=== PATIENT | female | born 1995 | race Caucasian/White ===

== ENCOUNTER 2017-08-17 07:00 | Inpatient (IN) | payer MEDICAID, SELFPAY ==
[2017-08-17] MEDS: Lactated Ringers 1,000 ML 50 ML IV ×2 (07:30→11:30)
[2017-08-17 07:36] VITALS: BMI 29.9
[2017-08-17 07:53] LABS: Hematocrit 37.9 % (37-47); Mean Corp Hgb Conc 34.3 g/gl (32-36); Mean Corpuscular Hgb 31.9 pg (27.0-32.0); Mean Corpuscular Volume 92.9 fL (81-99); Mean Platelet Vol. 12.1 fl (6.2-12.0); Platelet Count 131 K/mm3 (150-450); RBC Distribution Width CV 12.4 % (11.6-14.6); Red Blood Count 4.08 M/mm3 (4.2-5.4); White Blood Count 9.1 K/mm3 (4.4-11.0)
[2017-08-17 08:02] LABS: Scan Indicated on CBC? Y/N NO
[2017-08-17] MEDS: Ondansetron 4 MG/2 ML Vial IV (10:17)
[2017-08-17] MEDS: fentaNYL-bupivacaine (epidural) 100 ML BAG EPIDURAL (11:28)
[2017-08-17] MEDS: Oxytocin 30 units/NS 500 ml 30 UNITS/500 ML IV.SOLN 334 UNITS IV (12:51)
--- NOTE | 2017-08-17 13:06 | PCM.OB.VAG ---
Vaginal Delivery Maternal Presentation: Elective Induction Method of Induction: Amniotomy Amniotic Membrane Rupture Type: Artificial Amniotic Fluid Description: Clear Final MISSY: 08/13/17 Final MISSY Source: US <20 weeks Gestational age: 40 Weeks and 4 Days Pre-Operative Diagnosis: 40 week , labor Post-Operative Diagnosis: same Surgery/ Procedure Performed: Spontaneous Vaginal Delivery Type of Anesthesia: Epidural Description of Procedure: A vigorous male infant was delivered FALLON over a second-degree perineal laceration. A loose nuchal cord ?1 was easily reduced. The remainder the was delivered with maternal pushing and gentle traction only in less than 15 seconds. The Pitocin infusion was initiated for active management of the third stage. The cord was clamped and cut after 1 minute. The was attended to by the waiting nursing staff. The placenta was delivered spontaneously and intact. The cervix and vagina were intact. The second-degree perineal laceration was repaired with 3-0 Vicryl suture in a running standard fashion. Sponge and needle counts were correct. A vaginal sweep was completed by me. Presentation: FALLON Placental Delivery Description: Spontaneous Placenta Disposition: [facility] Cord Vessel Description: 3 Vessels Nuchal Cord Compression: Without compression Cord Entanglement: Around neck x 1, loose Drain: - - none Estimated Blood Loss: 300 A gender: Male (1 minute): 8 (5 minute): 9 Episiotomy Description: None Laceration: 2nd degree Medications given after delivery: IV Pitocin Complications: None
--- NOTE | 2017-08-17 13:09 | OP.PCM_ITS ---
Vaginal Delivery Maternal Presentation: Elective Induction Method of Induction: Amniotomy Amniotic Membrane Rupture Type: Artificial Amniotic Fluid Description: Clear Final MISSY: 08/13/17 Final MISSY Source: US <20 weeks Gestational age: 40 Weeks and 4 Days Pre-Operative Diagnosis: 40 week , labor Post-Operative Diagnosis: same Surgery/ Procedure Performed: Spontaneous Vaginal Delivery Type of Anesthesia: Epidural Description of Procedure: A vigorous male infant was delivered FALLON over a second-degree perineal laceration. A loose nuchal cord ?1 was easily reduced. The remainder the was delivered with maternal pushing and gentle traction only in less than 15 seconds. The Pitocin infusion was initiated for active management of the third stage. The cord was clamped and cut after 1 minute. The was attended to by the waiting nursing staff. The placenta was delivered spontaneously and intact. The cervix and vagina were intact. The second- degree perineal laceration was repaired with 3-0 Vicryl suture in a running standard fashion. Sponge and needle counts were correct. A vaginal sweep was completed by me. Presentation: FALLON Placental Delivery Description: Spontaneous Placenta Disposition: [facility] Cord Vessel Description: 3 Vessels Nuchal Cord Compression: Without compression Cord Entanglement: Around neck x 1, loose Drain: - - none Estimated Blood Loss: 300 Infant A gender: Male (1 minute): 8 (5 minute): 9 Episiotomy Description: None Laceration: 2nd degree Medications given after delivery: IV Pitocin Complications: None
[2017-08-17] MEDS: Oxytocin 30 units/NS 500 ml 30 UNITS/500 ML IV.SOLN 167 UNITS IV (13:20)
--- NOTE | 2017-08-17 14:10 | PCM.HP.OB ---
History Date of Admission: 02/04/14 Final MISSY: 08/13/17 Final MISSY Source: US <20 weeks Gestational age: 40 Weeks and 4 Days History of this : 21 YOF @ 40 4/7 weeks for induction. uncomplicated to date Allergies bee venom protein (honey bee) Allergy (Verified 08/17/17 07:30) Anaphylaxis prochlorperazine edisylate [From Compazine] Allergy (Verified 12/19/16 15:53) Swelling states throat swells prochlorperazine maleate [From Compazine] Allergy (Verified 12/19/16 15:53) Swelling states throat swells Current Medications Acetaminophen (Tylenol) 1,000 mg PO Q8H PRN PRN PRN Reason: MILD PAIN (1-3/10)/Temp>99.6F Bisacodyl (Dulcolax) 10 mg RECTAL UD PRN PRN Reason: If no BM Dibucaine (Dibucaine) 1 applic TOPICAL TID PRN PRN; Protocol PRN Reason: Discomfort Hydrocortisone (Hytone) 1 applic TOPICAL TID PRN PRN; Protocol PRN Reason: Discomfort Lactated Ringer's () 1,000 mls @ 0 mls/hr IV .Q0M FELIPE PRN Reason: KVO Oxytocin/Sodium Chloride () 30 units in 500 mls @ 167 mls/hr IV .Q3H [facility] Stop: 08/17/17 14:24 Methylergonovine Maleate (Methergine) 0.2 mg IM X1 PRN PRN Reason: Excess bleeding/uterine atony Naproxen (Naprosyn) 250 - 500 mg PO Q8H PRN PRN PRN Reason: MILD PAIN (1-3/10) Ondansetron HCl (Zofran) 4 mg IV Q4H PRN PRN PRN Reason: Nausea Promethazine HCl (Phenergan) 12.5 mg IV Q4H PRN PRN PRN Reason: NAUSEA/VOMITING Senna/Docusate Sodium (Senokot-S, Luanne-Colace) 1 - 2 tablet PO DAILY PRN PRN PRN Reason: Constipation Simethicone (Mylicon) 80 mg PO PCHS PRN PRN Reason: Indigestion/Stomach pain Sodium Chloride () 5 - 15 ml IV UD PRN PRN Reason: SALINE FLUSH Smoking Status: Never smoker Alcohol: None Number of Fetus(es): 1 Review of Systems Constitutional: Denies: Anorexia, Chills Eyes: Denies: Blurred vision Cardiovascular: Denies: Chest Pain Respiratory: Denies: Cough, Shortness of Breath Physical Exam General: Alert, Cooperative, No apparent distress Cardiovascular: Regular rate Lungs: Normal air movement Abdomen: Soft, Non Tender, Non-Distended, Gravid, Appropriate for Gestational Age Extremities:: No edema Estimated gestational size: Appropriate for gestational size Presentation: Cephalic Assessment/Plan 21-year-old 3 para 1011 at 40-4/7 weeks gestation with EDC of 08/13/2017 by last menstrual period confirmed by first trimester ultrasound presents for induction of labor. Estimated weight is less than 4500 g clinically and pelvis is clinically adequate to expect vaginal delivery. Artificial rupture membranes and Pitocin as needed for induction. Patient may have nitrous oxide, nubain or epidural as needed for pain relief.
[2017-08-17] MEDS: Lactated Ringers 1,000 ML 15 ML IV (14:24)
--- NOTE | 2017-08-17 17:18 | NURSING ---
Pt up to void with assistance of her mother, a nurse. Pt previously informed to call this RN when ready to void. Pt tolerated walking to the bathroom well per pt/mother.
[2017-08-17] MEDS: Naproxen 250 MG Tablet PO (17:19)
[2017-08-17 20:05] VITALS: BP 124/65; PULSE 91; RESP 18; TEMP 36.7; O2SAT 97
[2017-08-17] MEDS: Acetaminophen 500 MG Tablet 1000 MG PO (22:30)
[2017-08-18 00:15] VITALS: BP 128/56; PULSE 101; RESP 16; TEMP 36.6; O2SAT 97
--- NOTE | 2017-08-18 01:00 | NURSING ---
Talked with patient about history of depression. Asked patient if she would like to talk with pillowcase turner for resources and she stated she did not need to at this time. Patient bonding appropriately with infant and has good support system. Educated about signs and symptoms of depression.
[2017-08-18 03:25] VITALS: BP 118/61; PULSE 86; RESP 18; TEMP 36.7; O2SAT 97
[2017-08-18 07:29] VITALS: BP 113/72; PULSE 79; RESP 16; TEMP 36.4; O2SAT 97
[2017-08-18 11:53] VITALS: BP 120/76; PULSE 86; TEMP 36.8; O2SAT 97
--- NOTE | 2017-08-18 13:27 | PCM.PN.OB ---
Subjective: pain well controlled, average lochia - Physical Exam General: Alert, Cooperative, No apparent distress Vital Signs Temp Pulse Resp BP Pulse Ox 98.2 F 86 16 120/76 97 08/18/17 11:53 08/18/17 11:53 08/18/17 07:29 08/18/17 11:53 08/18/17 11:53 Oxygen Delivery Method Room Air Weight: 79.3 kg Body Mass Index (BMI) 29.9 Intake and Output for Last 24 Hours 08/16/17 08/17/17 08/18/17 23:59 23:59 23:59 Intake Total 1800 / 1800 Output Total 2400 / 2400 Balance -600 / -600 Medical Necessity - Tobacco Use Smoking Status: Never smoker Assessment/Plan PPD#1 doing well ready for d/c
--- NOTE | 2017-08-18 13:29 | DCINST_ITS ---
Discharge Diet: No Restrictions Discharge Activity: Return to Normal Activity, May not drive while taking narcotic pain medications., May Shower May resume sexual activity in: 4-6 weeks Additional Activity Instructions:: Nothing in the vagina for 4-6 weeks. You may return to work/school in 6 weeks. Call your doctor if your incision/area has: Continuous Slow Oozing, Sudden Increased Bleeding, Increased Pain/ Swelling, Increased Redness, Foul Smelling Discharge Additional Instructions: If you experience any of the following, contact your healthcare provider. * Bleeding that soaks a pad every hour for 2 hours * Fever 100.4 or higher * Unrelieved incision or abdominal pain * Swelling, redness, discharge or bleeding from your incision or episiotomy site * Your incision begins to separate * Problems urinating (including inability to urinate or burning while urinating) . * Visual changes * Severe headache * Flu-like symptoms * Pain or redness in one of both of your breasts * Pain, warmth, tenderness or swelling in your legs, especially the calf area * Frequent nausea and vomiting * Symptoms of depression or anxiety If you experience any of the following, call 911 or go to the nearest Emergency Room. * Chest pain * Problems breathing * Seizure activity * Partial or complete paralysis of a body part, slurred speech, weakness or drooping of the face, or a sudden inability to walk or hold your balance Allergies/Adverse Reactions: Allergies bee venom protein (honey bee) Allergy (Verified 08/17/17 07:30) Anaphylaxis prochlorperazine edisylate [From Compazine] Allergy (Verified 12/19/16 15:53) Swelling states throat swells prochlorperazine maleate [From Compazine] Allergy (Verified 12/19/16 15:53) Swelling states throat swells Medications to take at Discharge Vits [Prenatabs FA ] 1 tablet PO DAILY 02/06/14 Albuterol Inhaler [Ventolin Hfa] 1 puff INHALATION Q4H PRN PRN 08/17/17 Epinephrine [Epi Pen] 0.3 mg 08/17/17 Ibuprofen [Motrin] 600 mg PO Q6H PRN #60 tab 08/18/17 The following prescriptions were given: Ibuprofen [Motrin] 600 mg PO Q6H PRN #60 tab PRN Reason: Pain Please Follow Up With: Luann Sanderson MD - [phone] When: Call to make an appointment with your doctor in 6 weeks. If you had elevated Blood Pressure or 4th degree laceration you will need to be seen in 2 weeks. Primary Care Physician: Huber Lara DO [Primary Care Provider] -
--- NOTE | 2017-08-18 14:10 | NURSING ---
Reviewed vital signs, patient rounds and assessment done by SN Cherelle.
== END 2017-08-18 17:00 | disposition home or self-care (01) | DRG 373 ==
PROVIDERS: Admitting Provider Obstetrics & Gynecology; Family Provider Student in an Organized Health Care Education/Training Program; PCP Student in an Organized Health Care Education/Training Program; Visit Provider Obstetrics & Gynecology
DX: O48.0 Post-term pregnancy (principal); O70.1 Second degree perineal laceration during delivery; O69.1XX0 Labor and delivery complicated by cord around neck, with compression, not applicable or unspecified; Z3A.40 40 weeks gestation of pregnancy; Z37.0 Single live birth
CPT/HCPCS: 59025; 59050; 85027; 86850; 86900; 99218; J7120; G0378; J2405

== ENCOUNTER 2019-06-03 18:10 | Emergency (ER) | payer OTHER, MEDICAID, SELFPAY ==
[2019-06-03 18:11] VITALS: BP 139/89; PULSE 118; RESP 25; TEMP 36.9; O2SAT 100; BMI 25.7
--- NOTE | 2019-06-03 18:28 | RAD_ITS ---
STUDY: X-RAY CHEST REASON FOR EXAM: Female, 23 years old. Cough and shortness of breath TECHNIQUE: PA and lateral views of the chest. COMPARISON: 11/28/2013 FINDINGS: EKG leads overlie the chest The lungs are clear and expanded. There is no demonstrated pleural abnormality. Normal size heart. Normal mediastinum and osvaldo. Normal visualized pulmonary arteries. Normal visualized aortic arch and descending thoracic aorta. Normal visualized thoracic spine. Normal visualized ribs, clavicles, and shoulders. There is no demonstrated abnormality of the visualized soft tissue structures of the upper abdomen. RAD/Chest PA and Lateral IMPRESSION: Normal x-ray examination of the chest. Electronically Signed: Greg Madrid MD at 19:19 EST , Service support ,
--- NOTE | 2019-06-03 18:28 | EKG12_ITS ---
Test Reason : DYSRHYTHMIA Blood Pressure : / mmHG Vent. Rate : 104 BPM Atrial Rate : 104 BPM P-R Int : 134 ms QRS Dur : 082 ms QT Int : 344 ms P-R-T Axes : 079 060 068 degrees QTc Int : 452 ms Sinus tachycardia Otherwise normal ECG Confirmed by DEL FREEMAN, ROLANDO ([id number]), editor at large AMTT QUINTERO ([id number]) on 06/05/2019 1:34:45 PM Referred By: ALEXIS Confirmed By:ROLANDO MATHIS MD
--- NOTE | 2019-06-03 18:37 | ED.DCSUM_ITS ---
History of Present Illness Chief Complaint: Asthma Informant: Patient Onset: Days Context: Gradual Onset Timing: Continuous Current Severity: Moderate Maximum Severity: Severe Narrative: The patient is a 23-year-old female with medical history significant for asthma the presents to the emergency department with increasing shortness of breath. Patient states her symptoms began on Monday. She states she felt like she had an upper respiratory illness. She had a scant cough and chest tightness. She started prednisone and this will be her fourth day. She feels like is not helping. She feels like she cannot take a deep breath or catch her breath. She states at times, she will feel lightheaded and mildly nauseated. She denies any fevers or chills. She has had some left-sided chest pain especially with coughing. Prior similar symptoms: Yes Recent Illness/Hospitalization: No Past Medical History - Allergies and Home Meds Allergies/Adverse Reactions: Allergies bee venom protein (honey bee) Allergy (Verified 06/03/19 18:13) Anaphylaxis prochlorperazine edisylate [From Compazine] Allergy (Verified 06/03/19 18:13) Swelling states throat swells prochlorperazine maleate [From Compazine] Allergy (Verified 06/03/19 18:13) Swelling states throat swells Primary Care Physician: Evelio Hernandez DO [Primary Care Provider] - Prior records reviewed: Yes Past Medical History: - - Asthma Surgical History: noncontributory Smoking Status: Never smoker Review of Systems General: Denies: Chills, Fever, Sweats Eyes: Denies: Visual changes - bilaterally, Diplopia ENT: Denies: Rhinorrhea, Sore throat Cardiovascular: Denies: Chest pain, Palpitations Respiratory: Reports: Dyspnea, Cough. Denies: Dyspnea on exertion Gastrointestinal: Denies: Abdominal pain, Nausea, Vomiting, Diarrhea, Melena, Hematochezia Genitourinary: Denies: Dysuria, Hematuria, Frequency Musculoskeletal: Denies: Back pain, Extremity Pain Skin: Denies: Rash, Wounds Neurological: Denies: Headache, Weakness, Numbness Physical Exam Vital Signs/Narrative: Vital Signs Temp Pulse Resp BP Pulse Ox 06/03/19 18:11 98.5 F 118 H 25 H 139/89 H 100 Inital Vital Signs reviewed: Yes General: Well nourished, Well developed, No Acute Distress Head: Normocephalic, Atraumatic Eyes: Perrl, EOMI ENT: Moist mucous membranes, No rhinorrhea Neck: Supple, Nontender Cardiovascular: Regular rate, Regular rhythm, No murmurs Respiratory: No distress, Chest nontender, Wheezing Abdomen: Soft, Nontender, Nondistended, Normal bowel sounds Back: Nontender, Normal Inspection Extremities: Nontender, No edema Skin: Normal color, No rash Neurological: Alert, Oriented x3, Cranial nerves II-XII grossly intact, Normal Strength, Normal Sensation Psychological: Normal affect, Normal Mood Diagnostic/Tx/Re-eval Clinical Impression(s) from Imaging Studies Chest X-Ray 06/03/19 18:28 IMPRESSION: Normal x-ray examination of the chest. Electronically Signed: Greg Madrid MD at 19:19 EST , Service support , Abnormal Lab Results 06/03/19 06/03/19 06/03/19 19:15 19:15 19:15 WBC 16.5 H RBC 4.67 Hgb 14.4 Hct 42.9 MCV 91.9 MCH 30.8 MCHC 33.6 RDW Std Deviation 41.1 RDW Coeff of Win 12.2 Plt Count 329 MPV 10.7 Immature Gran % (Auto) 0.200 Neut % (Auto) 48.1 Lymph % (Auto) 41.3 H [place] % (Auto) 10.0 Eos % (Auto) 0.1 Baso % (Auto) 0.3 Absolute Neuts (auto) 7.9 H Absolute Lymphs (auto) 6.80 H Nucleated RBC % 0 Differential Comment SCANNED D-Dimer Quant (PE/DVT) <= 0.27 Sodium 142 Potassium 3.1 L Chloride 111 H Carbon Dioxide 20.0 L Anion Gap 11 BUN 13 Creatinine 0.98 Estim Creat Clear Calc 76.44 Est GFR (MDRD) Af Amer 90 Est GFR (MDRD) Non-Af 74 BUN/Creatinine Ratio 13.3 Glucose 108 H Calcium 10.0 - Medical Decision Making The patient presents to the emergency department with asthma exacerbation. She does have diminished lung sounds bilaterally with prolonged expiration. She was started immediately on nebulized breathing treatments. Chest x-ray was obtained which was unremarkable for acute process. EKG shows sinus tachycardia without acute ischemic change. I did obtain a d-dimer which was negative. Otherwise labs are unremarkable. With treatments, the patient was feeling improved. She was given IV magnesium. She is resting comfortably with resolution of her tachypnea and tachycardia. At this point, I do think she is safe to continue her outpatient therapy. She has no hypoxia and otherwise unremarkable work-up. She is comfortable with this plan of care. Impression 1. Acute asthma exacerbation ED Disposition - Plan for ED Patient: Instructions: ASTHMA, Acute (Adult) Referrals: Evelio Hernandez DO [Primary Care Provider] -
[2019-06-03 18:47] VITALS: RESP 25
[2019-06-03 19:00] VITALS: PULSE 105; RESP 20; O2SAT 99
[2019-06-03] MEDS: 0.9% Normal Saline 1,000 ML 999 ML IV (19:00)
[2019-06-03] MEDS: Ipratropium/Albuterol Sulfate 3 ML AMPUL.NEB INHALATION (19:00)
[2019-06-03] MEDS: MethylPREDNISolone 125 MG/2 ML Vial IV (19:01)
[2019-06-03 19:03] VITALS: PULSE 115; RESP 20; O2SAT 99
[2019-06-03 19:24] LABS: Absolute Neutrophil Count 7.9 X10^3/uL (2.0-7.7); Basophil# 0.05 X10^3/uL; Basophil% 0.3 % (0-1); Eosinophil# 0.02 X10^3/uL; Eosinophils% 0.1 % (0-5); Hematocrit 42.9 % (37-47); Hemoglobin 14.4 g/dL (12.0-15.0); Lymphocyte % 41.3 % (19-41); Mean Corp Hgb Conc 33.6 g/dL (32-36); Mean Corpuscular Hgb 30.8 pg (27.0-32.0); Mean Corpuscular Volume 91.9 fL (81-99); Mean Platelet Vol. 10.7 fl (6.2-12.0); Monocyte# 1.65 X10^3/uL; NRBC Flagged by Analyzer 0 % (0-5); Neutrophil # 7.89 X10^3/uL (2.7-7.7); Neutrophil % 48.1 % (47-70); POSITIVE DIFFERENTIAL YES; POSITIVE MORPHOLOGY YES; Platelet Count 329 K/mm3 (150-450); RBC Distribution Width CV 12.2 % (11.6-14.6); RBC Distribution Width SD 41.1 fl (35.1-43.9); Red Blood Count 4.67 M/mm3 (4.2-5.4); White Blood Count 16.5 K/mm3 (4.4-11.0)
[2019-06-03 19:35] LABS: Differential Indicated SCAN CRITERIA MET
[2019-06-03 19:43] LABS: D-Dimer Quantitative (DVT/PE) <= 0.27 FEU/ug/m (0.27-0.49)
[2019-06-03 19:47] LABS: Anion Gap 11 (5-15); BUN 13 mg/dL (7-18); BUN/Creat Ratio 13.3 RATIO (10-20); Chloride 111 mmol/L (98-107); Creatinine, Serum 0.98 mg/dL (0.55-1.02); EST Glomerular Filtration Rate 74 mL/min (>60); Est Glom Filt Rate - Afr Amer 90 mL/min (>60); Estimated Creatinine Clearance 76.44 ml/min; Glucose 108 mg/dL (74-106); Potassium 3.1 mmol/L (3.5-5.1); Sodium Level 142 mmol/L (136-145)
[2019-06-03 19:49] LABS: Differential Comment SCANNED
[2019-06-03] MEDS: Albuterol 2.5 MG/3 ML VIAL.NEB. INHALATION ×3 (20:08)
[2019-06-03] MEDS: Magnesium Sulfate 2 GM IV IV (20:16)
--- NOTE | 2019-06-03 20:25 | CPS ---
x3 Albuterol given to pt. in ER as well
[2019-06-03 21:06] VITALS: BP 116/68; PULSE 115; RESP 21; O2SAT 98
[2019-06-03 22:36] VITALS: BP 118/98; PULSE 112; RESP 16; O2SAT 96
== END 2019-06-03 22:38 | disposition home or self-care (01) ==
PROVIDERS: Emergency Provider Emergency Medicine; PCP Student in an Organized Health Care Education/Training Program
DX: J45.901 Unspecified asthma with (acute) exacerbation (principal)
CPT/HCPCS: 36415; 71046; 80048; 85025; 85379; 93005; 94640; 96361; 96365; 96366; 96374; 99251; 99285; J7030; A4216; G0463; J3475

== ENCOUNTER → 2019-07-09 08:56 | Outpatient (CLI) | payer OTHER, MEDICAID, SELFPAY ==
[2019-06-26 06:01] VITALS: BMI 26.6
[2019-07-09 10:14] LABS: Absolute Lymphocyte Count 3.09 X10^3/uL (0.83-4.51); Absolute Neutrophil Count 4.1 X10^3/uL (2.0-7.7); Basophil# 0.04 X10^3/uL; Basophil% 0.5 % (0-1); Eosinophil# 0.12 X10^3/uL; Eosinophils% 1.5 % (0-5); Hematocrit 43.3 % (37-47); Hemoglobin 14.7 g/dL (12.0-15.0); Lymphocyte # 3.09 X10^3/ul (4.0); Lymphocyte % 37.7 % (19-41); Mean Corp Hgb Conc 33.9 g/dL (32-36); Mean Corpuscular Volume 94.1 fL (81-99); Mean Platelet Vol. 10.4 fl (6.2-12.0); Monocyte# 0.82 X10^3/uL; NRBC Flagged by Analyzer 0 % (0-5); Neutrophil % 50.1 % (47-70); Platelet Count 321 K/mm3 (150-450); RBC Distribution Width CV 11.8 % (11.6-14.6); RBC Distribution Width SD 40.2 fl (35.1-43.9); White Blood Count 8.2 K/mm3 (4.4-11.0)
--- NOTE | 2019-07-09 13:48 | PFT ---
INTRODUCTION: The patient is a 23-year-old female that presents for pulmonary function studies secondary to a diagnosis of asthma. Respiratory therapy reports good patient effort. Bronchodilators were used during testing. INTERPRETATION: Forced expiration spirometry demonstrates no evidence of a large airways obstructive ventilatory defect. There was no significant response to aerosolized bronchodilators. Spirograms are of good quality and plateau normally. The respiratory flow volume loop is normal. Body plethysmography was performed and reveals lung volumes to be within normal limits. Diffusing capacity by single breath CO is also within normal limits. IMPRESSION: Grossly normal pulmonary function studies.
[2019-07-11 03:06] LABS: Alternaria alternata 1.63 kU/L (Class III); Bermuda Grass <0.10 kU/L (Class 0); Bluegrass, Kentucky <0.10 kU/L (Class 0); Cat Hair/Dander, Standard <0.10 kU/L (Class 0); D farinae Mite <0.10 kU/L (Class 0); D pteronyssinus <0.10 kU/L (Class 0); Dog Epithelia <0.10 kU/L (Class 0); Elm, American White <0.10 kU/L (Class 0); Oak, White <0.10 kU/L (Class 0); Plantain, English <0.10 kU/L (Class 0); Ragweed, Short/Common 0.15 kU/L (Class 0/I)
[2019-07-11 08:04] LABS: Mouse Urine <0.10 kU/L (Class 0)
[2019-07-13 14:50] LABS: Immunoglobulin E 80 IU/mL (6-495)
== END ==
PROVIDERS: PCP Student in an Organized Health Care Education/Training Program; Referring Provider Internal Medicine Critical Care Medicine; Visit Provider Internal Medicine Critical Care Medicine
DX: J45.40 Moderate persistent asthma, uncomplicated (principal)
CPT/HCPCS: 36415; 82785; 85025; 86003; 94060; 94726; 94729

== ENCOUNTER 2019-09-20 16:30 | Outpatient (RCR) | payer OTHER, MEDICAID, SELFPAY ==
--- NOTE | 2019-05-06 08:30 | HP.PTEVAL_ITS ---
Patient's Visit Information LEIDY WILCOX is a 23 year old F referred to Physical Therapy by Layton Nava MD with a diagnosis of bilateral temporomadibular joint arthrosis. Date of Evaluation: 04/25/19 Physical Therapist: Jamie Colunga DPT - Visit Plan Frequency: 2x /Week Duration: 4-6 Weeks Plan: Start with roccobodo exercises. Add in SCM stretching, postural education and exercises. May use DN and SCM to deep neck flexors, SCM and levator scapulea . - Subjective Findings: Pt. is here today for her initial evaluation with diagnosis of bilateral temporomadibular joint arthrosis. Pt. reports having increased pain for years, but has been getting worse. She originally through she had an ear infection which took her to the ENT. Pt. reports pain into her L mandable and auricular region. Pt. reprots increased pain with chewing, eating, opening her mouth and clenching her mouth. Pt. denies N/T. 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 Pt. works at [employer] and is going to school on line. Pt. is hopeful to reduce her symptoms in order to complete all her ADLs and have no pain with all recreational activities. - Pain B temporomandibular region Pain Intensity (Out of 10): 2 - Objective POSTURE: Pt. has FH posture with increased cervical flexion at lower cervical spine and extension and upper cervical spine. Pt. has roduned shoulders as well. Pt. is able to correct, but falls back into this posture without VC. PALPATION: Pt. has tenderness along L SCM and L UT. Tender at aurical region and at L mandable and TMJ. NEURO: normal throughout. ROM: Pt. has decreased mouth opening with reports of increased tenderness on L TMJ. Pt. has no lateral deviation. Pt. has no popping with opening and closing. MMT: Pt. has 5/5 strength throughout cervical spine. Weakness with deep neck flexor strength endurance, chin tuck with flexor testing 18sec. - Goals Goal 1:: LTG: Pt. to be I with HEP. Goal Time Frame: 4-6 Weeks Goal 2:: STG: Pt. to be able to eat without increase in soreness. Goal Time Frame: 2-4 Weeks Goal 3:: LTG: Pt. to demonstrate improved postural awareness, noted by mainting throughout PT session. Goal Time Frame: 4-6 Weeks Goal 4:: STG: pt. to complete all work and ADLs with out increase in symptoms. Goal Time Frame: 2-4 Weeks - Rehabilitation Potential Physical Therapy Diagnosis: bilateral temporomadibular joint arthrosis, with marked postural weakness and poor posture. Rehabilitation Potential: Excellent - Anticipated Interventions Patient/Client Instruction: Educate patient on: Condition, Plan of Care, Risk Factors, Benefits of Fitness Program For the Purpose of:: To foster healthy habits, To improve decision making, To facilitate caregiver knowledge, To improve self management, To prevent re- injury, To improve ability to perform tasks related to life management, To improve tolerance to ADL's Therapeutic Exercise to Include: Strength training, Body mechanics, Postural training, Flexibilty training, Passive ROM, Active ROM, Dynamic Lumbar Stabilization, Venancio Exercises, Scapular Strength/Stabilization For the Purpose of:: To decrease pain, To decrease swelling/inflammation, To increase ROM, To improve nutrient delivery to tissue, To increase oxygenation perfusion, To improve muscle performance and motor function, To improve performance and independence with ADL's, To improve health of tissue, To decrease soft tissue restriction, To increase flexibility/ROM Manual Therapy Techniques to Include: Mobilization, Passive ROM, Functional dry needling, Soft tissue mobilization For the Purpose of:: To decrease pain, To decrease swelling/inflammation, To increase ROM, To improve nutrient delivery to tissue Thank you for the opportunity to evaluate your patient. For Medicare and Medicare HMO plans, please review the plan of care and approve it. It will need to be FAXED BACK to us at [phone] for Medicare purposes. For Medicare only, by signing this I certify the plan of care. Please let me know if there are questions or concerns regarding this plan of ca re. Physician Signature: Date:
--- NOTE | 2019-10-23 13:43 | HP.PTDCNRP_ITS ---
LEIDY WILCOX was seen in my office for initial evaluation on 04/25/19. The following Plan of Care was established for this patient: Initial Frequency: 2x /Week Initial Duration: 4-6 Weeks Patient/Client Instruction: Educate patient on: Condition, Plan of Care, Risk Factors, Benefits of Fitness Program For the Purpose of:: To foster healthy habits, To improve decision making, To facilitate caregiver knowledge, To improve self management, To prevent re- injury, To improve ability to perform tasks related to life management, To improve tolerance to ADL's Therapeutic Exercise to Include: Strength training, Body mechanics, Postural training, Flexibilty training, Passive ROM, Active ROM, Dynamic Lumbar Stabilization, Venancio Exercises, Scapular Strength/Stabilization For the Purpose of:: To decrease pain, To decrease swelling/inflammation, To increase ROM, To improve nutrient delivery to tissue, To increase oxygenation perfusion, To improve muscle performance and motor function, To improve performance and independence with ADL's, To improve health of tissue, To decrease soft tissue restriction, To increase flexibility/ROM Manual Therapy Techniques to Include: Mobilization, Passive ROM, Functional dry needling, Soft tissue mobilization For the Purpose of:: To decrease pain, To decrease swelling/inflammation, To increase ROM, To improve nutrient delivery to tissue This patient was last seen in our office 09/20/19. Pertinent comments regarding their Physical therapy will appear below: Pt. was seen for her TMD issues. Pt. was treated with ROM, stretching, postural education and relaxation technqiues. Pt. was doing well at her last visit and has not been seen in several weeks. Pt. will be DC from PT at this point in time. At this point I will be discontinuing this patient from physical therapy. I would be happy to see this patient again in the future if found appropriate by the physician. Thank you! Jamie Colunga, GHASSAN
== END 2019-09-20 19:00 | disposition home or self-care (01) ==
LOC: PT 16:30
PROVIDERS: PCP Student in an Organized Health Care Education/Training Program; Referring Provider Student in an Organized Health Care Education/Training Program; Visit Provider Otolaryngology
DX: M26.623 Arthralgia of bilateral temporomandibular joint (principal)
CPT/HCPCS: 97035; 97110; 97140; 97161

== ENCOUNTER → 2020-05-08 10:34 | Outpatient (CLI) | payer OTHER, MEDICAID, SELFPAY ==
[2020-04-16 08:04] VITALS: BMI 27.2
[2020-05-08 11:10] LABS: Absolute Lymphocyte Count 1.97 X10^3/uL (0.83-4.51); Absolute Neutrophil Count 3.9 X10^3/uL (2.0-7.7); Basophil# 0.03 X10^3/uL; Basophil% 0.5 % (0-1); Eosinophil# 0.05 X10^3/uL; Eosinophils% 0.8 % (0-5); Hemoglobin 14.1 g/dL (12.0-15.0); Lymphocyte # 1.97 X10^3/ul (4.0); Lymphocyte % 30.2 % (19-41); Mean Corp Hgb Conc 32.8 g/dL (32-36); Mean Corpuscular Hgb 31.1 pg (27.0-32.0); Mean Corpuscular Volume 94.7 fL (81-99); Mean Platelet Vol. 10.7 fl (6.2-12.0); Monocyte# 0.54 X10^3/uL; Monocyte% 8.3 % (0-10); NRBC Flagged by Analyzer 0 % (0-5); Neutrophil # 3.91 X10^3/uL (2.7-7.7); Neutrophil % 59.9 % (47-70); Platelet Count 291 K/mm3 (150-450); RBC Distribution Width CV 11.9 % (11.6-14.6); RBC Distribution Width SD 41.2 fl (35.1-43.9); Red Blood Count 4.54 M/mm3 (4.2-5.4); White Blood Count 6.5 K/mm3 (4.4-11.0)
== END ==
PROVIDERS: PCP Student in an Organized Health Care Education/Training Program; Visit Provider Specialist
DX: L50.1 Idiopathic urticaria (principal)
CPT/HCPCS: 36415; 83520; 85025

== ENCOUNTER 2020-05-12 15:13 | Emergency (ER) | payer OTHER, MEDICAID, SELFPAY ==
[2020-05-12 14:56] VITALS: BMI 27.4
[2020-05-12 15:14] VITALS: BP 119/96; PULSE 97; RESP 17; TEMP 36.9; O2SAT 97; BMI 29.8
--- NOTE | 2020-05-12 15:31 | ED.DCSUM_ITS ---
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 She states she received an injection. 20 minutes later she developed difficulty breathing, change in voice and abnormal breath sounds. She denies rash. She denies swelling of her tongue. She denies drooling. She denies cardiac symptoms. She denies nausea or vomiting. She denies abdominal discomfort. Denies orthostatic symptoms. Prior similar symptoms: Yes Recent Illness/Hospitalization: No - Past Medical History (1) Hives Status: Acute (2) IBS (irritable bowel syndrome) Status: Acute (3) Asthma Status: Chronic (4) Allergic rhinitis Status: Acute (5) Eustachian tube dysfunction Status: Acute Past Medical History - Allergies and Home Meds Allergies/Adverse Reactions: Allergies bee venom protein (honey bee) Allergy (Verified 05/12/20 15:18) Anaphylaxis prochlorperazine edisylate [From Compazine] Allergy (Verified 05/12/20 15:18) Swelling states throat swells prochlorperazine maleate [From Compazine] Allergy (Verified 05/12/20 15:18) Swelling states throat swells Primary Care Physician: Evelio Hernandez DO [Primary Care Provider] - Prior records reviewed: Yes Surgical History: noncontributory Lives: With Family Smoking Status: Never smoker Alcohol: None Drugs: None Review of Systems General: Denies: Chills, Fever, Sweats Eyes: Denies: Visual changes - bilaterally, Blurred Vision - bilaterally, Diplopia ENT: Denies: Bilateral ear pain, Rhinorrhea, Sore throat Cardiovascular: Denies: Chest pain, Palpitations, Heart racing Respiratory: Reports: Dyspnea, Cough, Dyspnea on exertion. Denies: Sputum, Orthopnea, Paroxysmal nocturnal dyspnea Gastrointestinal: Denies: Abdominal pain, Nausea, Vomiting, Diarrhea, Melena, Hematochezia Genitourinary: Denies: Dysuria, Hematuria, Frequency Musculoskeletal: Denies: Myalgias, Arthralgias, Neck pain, Back pain, Swelling, Extremity Pain Skin: Denies: Rash, Wounds Neurological: Denies: Headache, Weakness, Numbness Hematologic: Denies: Easy bruising, Easy bleeding Allergy: Reports: Swelling of the mouth. Denies: Uticaria, Swelling of the tongue Physical Exam Vital Signs/Narrative: Vital Signs Temp Pulse Resp BP Pulse Ox 05/12/20 15:14 98.5 F 97 17 119/96 H 97 Inital Vital Signs reviewed: Yes General: Well nourished, Well developed, No Acute Distress Head: Normocephalic, Atraumatic Eyes: Perrl, EOMI ENT: Moist mucous membranes, No rhinorrhea, - - Denies expiratory stridor. There is no swelling of the uvula, soft palate tongue or posterior pharynx. Trachea is midline. Neck: Supple, Nontender Cardiovascular: Regular rate, Regular rhythm, No murmurs, Normal S1, Normal S2 Respiratory: No distress, CTA bilaterally, Chest nontender, Diminished. Negative for: Rales, Rhonchi, Wheezing Abdomen: Soft, Nontender, Nondistended, Normal bowel sounds Back: Nontender, Normal Inspection Extremities: Nontender, No edema Skin: Normal color, No rash Neurological: Alert, Oriented x3, Cranial nerves II-XII grossly intact, Normal Strength, Normal Sensation Psychological: Normal affect, Normal Mood Diagnostic/Tx/Re-eval - Medical Decision Making She has a systemic allergic reaction. She was treated with H1 estrellita, H2 estrellita, IV Solu-Medrol and epinephrine intramuscularly. She was placed on a monitor. She will be observed for 4 to 6 hours. Patient was reassessed at 1635. She has no dysphonia. There is no expiratory stridor. She reports no swelling of her throat. She was informed that she will be observed for a minimum of 4 hours. She states she does have an EpiPen. She does carry at all times. She was told if this were ever to happen again that she should use her EpiPen. Patient was reassessed at 1715. She sitting up. She appears no discomfort. She is talking with visitor. Her symptoms have resolved completely. Patient reassessed at 1810. No recurrence of symptoms. Patient was reassessed at 1924. Patient is in no distress. Trachea is midline. There is no inspiratory expiratory stridor. Lungs are clear to auscultation. There is no evidence of swelling of the lips, tongue or uvula. - Critical Care Time Critical care time (excluding procedures): 30-74 minutes - Total time 33 minutes which includes obtaining history, physical exam, documentation, treatment and repeat evaluation during her 4-hour stay, Discussing w/Patient &/or Family/Advertising Dispatch Clerk, Performing Direct Patient Care at Bedside ED Disposition - Plan for ED Patient: Disposition: Home or Assisted Living Diagnosis: Expiratory stridor, Allergic angioedema Instructions: ED Angioedema, ED General Allergic Reactions Referrals: Evelio Hernandez DO [Primary Care Provider] - Additional Instructions: You should carry your EpiPen at all times. If you have a similar reaction you should use your EpiPen.
[2020-05-12] MEDS: Famotidine 200 MG/20 ML MDV 20 MG in 0.9% Normal Saline (Pres. free 8 ML 300 MG IV (15:42)
[2020-05-12] MEDS: DiphenhydrAMINE 50 MG/ML Syringe IV (15:42)
[2020-05-12] MEDS: MethylPREDNISolone 125 MG/2 ML Vial IV (15:42)
[2020-05-12 15:49] VITALS: BP 128/84; PULSE 98; RESP 14; O2SAT 97
--- NOTE | 2020-05-12 15:51 | ED.RN ---
xolair was the medication from [facility]apper office that pt is reacting to.
--- NOTE | 2020-05-12 15:52 | ED.RN ---
pt received meds on JUN, reports tightness in throat improving. pt had a continuous cough that is now gone.
[2020-05-12] MEDS: Ondansetron 4 MG/2 ML Vial IV (16:03)
[2020-05-12 18:05] VITALS: BP 114/72; PULSE 92; RESP 12; O2SAT 97
[2020-05-12 19:41] VITALS: BP 115/78; PULSE 102; RESP 16; O2SAT 95
== END 2020-05-12 19:49 | disposition home or self-care (01) ==
PROVIDERS: Emergency Provider Emergency Medicine; PCP Student in an Organized Health Care Education/Training Program
DX: T78.3XXA Angioneurotic edema, initial encounter (principal); K58.9 Irritable bowel syndrome, unspecified; J45.909 Unspecified asthma, uncomplicated
CPT/HCPCS: 96372; 96374; 96375; 99284; J7030; A4216; J2405; J3490

== ENCOUNTER 2020-07-22 23:33 | Emergency (ER) | payer OTHER, MEDICAID, SELFPAY ==
[2020-05-27 07:05] VITALS: BMI 27.4
[2020-07-22 23:33] VITALS: BP 153/90; PULSE 100; RESP 20; TEMP 36.6; O2SAT 98; BMI 27.1
[2020-07-22 23:39] VITALS: O2SAT 99
[2020-07-22] MEDS: predniSONE 20 MG Tablet 60 MG PO (23:55)
[2020-07-22] MEDS: Ipratropium/Albuterol Sulfate 3 ML AMPUL.NEB INHALATION (23:58)
[2020-07-22 23:59] VITALS: PULSE 114; RESP 24
--- NOTE | 2020-07-23 | RAD_ITS ---
STUDY: X-RAY CHEST REASON FOR EXAM: Female, 24 years old. dyspnea TECHNIQUE: Single AP portable view of the chest. COMPARISON: 06/03/2019. FINDINGS: The lungs are clear and expanded. There is no demonstrated pleural abnormality. Normal size heart. Normal mediastinum and osvaldo. Normal visualized pulmonary arteries. Normal visualized aortic arch and descending thoracic aorta. Normal visualized thoracic spine. Normal visualized ribs, clavicles, and shoulders. There is no demonstrated abnormality of the visualized soft tissue structures of the upper abdomen. RAD/Chest 1 View (Portable) IMPRESSION: Normal x-ray examination of the chest. Electronically Signed: Lizbet Weiner MD at 0:25 EDT , Service support ,
--- NOTE | 2020-07-23 00:01 | ED.VIS.GEN ---
History of Present Illness Chief Complaint: Asthma Informant: Patient Narrative: 24-year-old female with past medical history of asthma presents with concern for wheezing and cough. States is been present over the past 2 days. States that they have had an upper respiratory illness in the home over the past 1 week. Denies any significant sputum production. Denies any chest pain, nausea vomiting, diaphoresis. States that she is on a rescue as well as control inhaler. Past Medical History - Allergies and Home Meds Allergies/Adverse Reactions: Allergies bee venom protein (honey bee) Allergy (Verified 07/22/20 23:35) Anaphylaxis omalizumab [From Xolair] Allergy (Verified 07/22/20 23:35) Anaphylaxis prochlorperazine edisylate [From Compazine] Allergy (Verified 07/22/20 23:35) Swelling states throat swells prochlorperazine maleate [From Compazine] Allergy (Verified 07/22/20 23:35) Swelling states throat swells Primary Care Physician: Evelio Hernandez DO [Primary Care Provider] - Prior records reviewed: Yes Past Medical History: - - asthma Surgical History: noncontributory Lives: With Family Smoking Status: Never smoker Alcohol: None Drugs: None Review of Systems General: Denies: Chills, Fever, Sweats Eyes: Denies: Visual changes - bilaterally, Diplopia ENT: Denies: Rhinorrhea, Sore throat Cardiovascular: Denies: Chest pain, Palpitations Respiratory: Reports: Dyspnea, Cough. Denies: Dyspnea on exertion Gastrointestinal: Denies: Abdominal pain, Nausea, Vomiting, Diarrhea, Melena, Hematochezia Genitourinary: Denies: Dysuria, Hematuria, Frequency Musculoskeletal: Denies: Back pain, Extremity Pain Skin: Denies: Rash, Wounds Neurological: Denies: Headache, Weakness, Numbness Physical Exam Vital Signs/Narrative: Vital Signs Temp Pulse Resp BP Pulse Ox 07/22/20 23:59 114 H 24 H 07/22/20 23:33 97.9 F 100 20 H 153/90 H 98 General: Well nourished, Well developed, No Acute Distress Head: Normocephalic, Atraumatic Eyes: Perrl, EOMI ENT: Moist mucous membranes, No rhinorrhea Neck: Supple, Nontender Cardiovascular: Regular rate, Regular rhythm, No murmurs Respiratory: No distress, CTA bilaterally, Chest nontender, - - Upper airway wheezing. Abdomen: Soft, Nontender, Nondistended, Normal bowel sounds Back: Nontender, Normal Inspection Extremities: Nontender, No edema Skin: Normal color, No rash Neurological: Alert, Oriented x3, Cranial nerves II-XII grossly intact, Normal Strength, Normal Sensation Psychological: Normal affect, Normal Mood Diagnostic/Tx/Re-eval Chest X-Ray - ED: 1 View, Read by ED Physician, Read by Radiologist, Normal Clinical Impression(s) from Imaging Studies Chest X-Ray 07/23/20 00:00 IMPRESSION: Normal x-ray examination of the chest. Electronically Signed: Lizbet Weiner MD at 0:25 EDT , Service support , - Medical Decision Making Patient appears well and nontoxic. Lungs clear on exam. No respiratory distress. Patient has upper airway wheezing. No stridor. Chest x-ray read by myself shows no infiltrate. Radiology concurs. Coronavirus negative. Patient given DuoNeb. Will be given prednisone and advised to follow-up with her primary care provider. Patient ambulated and maintained oxygen saturations at 95%. Stable at time of discharge. Impression: 1. Asthma exacerbation ED Disposition - Plan for ED Patient: Disposition: Home or Assisted Living Instructions: ED Asthma, Acute (Adult) Prescriptions: Prednisone [Deltasone] 40 mg PO DAILY #10 tablet Prescription Printed Referrals: Evelio Hernandez DO [Primary Care Provider] - 2 Days
[2020-07-23] MEDS: Ketorolac 15 MG/ML Vial IM (00:15)
[2020-07-23 01:14] VITALS: PULSE 117; RESP 20
[2020-07-23] MEDS: Albuterol 2.5 MG/3 ML VIAL.NEB. INHALATION (01:14)
[2020-07-23 02:05] VITALS: BP 116/88; PULSE 115; RESP 16; RESP 20; O2SAT 97
== END 2020-07-23 02:30 | disposition home or self-care (01) ==
PROVIDERS: Emergency Provider Emergency Medicine; PCP Student in an Organized Health Care Education/Training Program
DX: J45.901 Unspecified asthma with (acute) exacerbation (principal)
CPT/HCPCS: 71045; 87426; 94640; 96365; 96372; 99283; A4216; J3475

== ENCOUNTER 2021-02-15 07:10 | Day surgery (SDC) | payer MEDICAID, SELFPAY ==
[2021-02-15] VITALS (8 sets, daily range): BP systolic 110–156; BP diastolic 25–92; PULSE 93–129; RESP 16–20; TEMP 36.3–36.8; O2SAT 94–100; BMI 30.1
--- NOTE | 2021-02-15 | LES_PTH ---
PATIENT: LEIDY WILCOX LOC: [facility] – [place] U#:[id number] AGE/SX: 25/F ROOM: RE02/15/[address]: Dr. Luis Talley MD : 1995 BED: DIS: 02/15/2021 SPEC #: [id number] RECD: 02/15/21 12:45 STATUS: UBALDO MYLES #: [id number] DINO: 02/15/21 00:[address]: Luis Talley DEPT: SURGICAL PATHOLOGY RECD BY: Raffi Daniel ENTERED: 02/15/21 12:46 SP TYPE: Lesion OTHR DR: Dr. Evelio Hernandez DO Tissues: A - Skin of external ear, NOS B - Skin of external ear, NOS C - Skin of external ear, NOS Procedures: Special Stain Group I Surgery Specimen Level IV GMS Stain (control) HEADER OPERATION: Excision cyst post auricular PRE-OP DIAGNOSIS: Benign neoplasm of skin of right and left ear and external auricular canal TISSUE SUBMITTED: A - Right superior auricular crease, B - Right inferior auricular crease, C - Left inferior auricular crease MICROSCOPIC DIAGNOSIS A. Right superior auricular crease, biopsy: Mild chronic dermal chronic inflammation. Epidermal inclusion cyst. No evidence of malignancy. B. Right inferior auricular crease, biopsy: Benign dermal histiocytic reaction and minimal chronic inflammation. No evidence of fungal organisms. No evidence of malignancy. See comment. C. Left inferior auricular crease, biopsy: Dermal fibrosis and minimal chronic inflammation. AM:hyun 02/16/2021 COMMENT B. GMS stain with matched control was used in the evaluation of this case. MICROSCOPIC DESCRIPTION Slides are reviewed. GROSS DESCRIPTION A - Received in fixative is one container labeled with the patient's name and designated right superior auricular crease. The specimen consists of a piece of jonas-white skin measuring 0.5 x 0.1 x 0.2 cm. The entire specimen is submitted in one cassette. B - Received in fixative is one container labeled with the patient's name and designated right inferior auricular crease. The specimen consists of two pieces of jonas-white skin measuring 0.4 x 0.2 x 0.2 cm and 0.2 x 0.2 x 0.1 cm. The entire specimen is submitted in one cassette. C - Received in fixative is one container labeled with the patient's name and designated left inferior auricular crease. The specimen consists of a piece of jonas-white skin ellipse measuring 1 x 0.3 x 0.2 cm. The specimen is inked, serially sectioned and submitted entirely in one cassette. / SJ:rg 02/15/21 TC:3 CPT: 38277 x3, [id number]
[2021-02-15 07:36] LABS: Internal QC Validated? YES +Cl - CLEAR BKGD; Pregnancy, Urine Negative Negative
[2021-02-15] MEDS: Lactated Ringers 1,000 ML 15 ML IV (08:15)
--- NOTE | 2021-02-15 08:18 | PCM.DC.SUM ---
Providers Primary Care Physician: Dr. Evelio Hernandez, Reason For Visit: EXC BILAT EAR CYSTS Medications at Discharge Home Medications albuterol sulfate 1 puff INHALATION Q4H PRN PRN 08/17/17 epinephrine 0.3 mg IM DAILY PRN 08/17/17 docosahexaenoic acid 200 mg capsule 200 mg PO DAILY 06/25/19 fexofenadine 180 mg tablet 180 mg PO DAILY 06/25/19 ascorbic acid (vitamin C) 500 mg tablet,extended release 500 mg PO DAILY 06/26/19 coenzyme [id number] 100 mg-100 unit capsule 1 cap PO DAILY 06/26/19 fluticasone 500 mcg-salmeterol 50 mcg/dose blistr powdr for inhalation 1 inh INHALATION BID 06/26/19 montelukast 10 mg tablet 10 mg PO QPM #30 tab 01/16/20 ondansetron HCl 4 mg tablet 4 mg PO Q8H PRN 08/24/20 tiotropium bromide 1.25 mcg/actuation mist for inhalation 2 puff INHALATION DAILY #4 g 08/24/20 fluoxetine 60 mg PO DAILY 02/08/21 pantoprazole 40 mg PO BID 02/08/21 potassium chloride 10 meq PO BID 02/08/21 Weight / BMI Weight Weight: 79.7 kg Body Mass Index (BMI) 30.1 ABG / Lab / Microbiology Data Laboratory: Laboratory Results - last 24 hr 02/15/21 07:30: Urine Test Negative Microbiology: Microbiology 02/12/21 09:12 Interface Orders SARS-CoV-2 Antigen (Rapid) - Final D/C Instructions Discharge Diet: No restrictions Discharge Activity: Return to Normal Activity May shower in (days): 2 Additional Activity Instructions: Remove dressing behind the ear tomorrow morning. apply antibiotic ointment twice a day. May shower on Monday Meaningful Use Info Meaningful Use Diagnoses (Choose all that apply): None applicable Discharge Plan Admission Attending Provider: Luis Talley Primary Care Provider: Evelio Hernandez Discharge Orders/Prescriptions Prescriptions: No Action fexofenadine 180 mg tablet 180 mg PO DAILY RF: 0 DHA 200 mg capsule 200 mg PO DAILY RF: 0 fluticasone propion-salmeterol [Advair Diskus] 500-50 mcg/dose blister with device 1 inh INHALATION BID RF: 0 ascorbic acid (vitamin C) [Vitamin C] 500 mg tablet extended release 500 mg PO DAILY RF: 0 coenzyme [id number] 100 mg-100 unit capsule 100-100 mg-unit capsule 1 cap PO DAILY RF: 0 montelukast 10 mg tablet 10 mg PO QPM Qty: 30 RF: 3 ondansetron HCl [Zofran] 4 mg tablet 4 mg PO Q8H PRN (Reason: Nausea) RF: 0 Spiriva Respimat 1.25 mcg/actuation mist 2 puff inhalation DAILY Qty: 4 RF: 3 epinephrine 0.3 MG syringe 0.3 mg IM DAILY PRN (Reason: Allergies) RF: 0 albuterol sulfate 1 INHALER inhaler 1 puff inhalation Q4H PRN PRN (Reason: Asthma) RF: 0 potassium chloride 10 mEq tablet extended release 10 meq PO BID RF: 0 pantoprazole 40 mg tablet,delayed release (DR/EC) 40 mg PO BID RF: 0 fluoxetine 20 mg tablet 60 mg PO DAILY RF: 0
[2021-02-15] MEDS: Lidocaine 1% /Epi 1:100 (20ml) 20 ML Vial (08:45)
--- NOTE | 2021-02-15 09:11 | OP.PCM_ITS ---
Report of Operation Date of Procedure: 02/15/21 Pre-Operative Diagnosis: bilateral post auricular crease lesions Post-Operative Diagnosis: same Surgery/Procedure Performed:: Excision right post auricular crease lesions (1 cm x .5 cm) and (.5cm x .5 cm) Excision left post auricular crease lesion (1x .5 cm) Surgeon: Luis Talley Type of Anesthesia: Local MAC Anesthesiologist: Rashel Fuentes Estimated Blood Loss (mL): minimal Description of Procedure: Patient was taken off room on 02/15/2021. She was placed in the supine position on the operating room table. She was given local MAC anesthesia. The right ear was prepped and draped sterilely. 1% lidocaine with epinephrine injected into the skin surrounding the intended incisions. The superior postauricular crease lesion was excised in an ellipse with a 15 blade. Sharp dissection was used to remove the lesion. The skin was then closed with interrupted 5-0 fast-absorbing gut. Next the inferior lesion on the right side was excised in an ellipse with a 15 blade. Sharp dissection was used to remove the specimen. Bipolar cautery was used for hemostasis. The incision skin was t hen closed with 5-0 fast-absorbing gut. Next, attention was turned to the left side. The left ear was prepped and draped sterilely. 1% lidocaine with epinephrine was injected into these skin was over the intended incision. The incision was created with a 15 blade in an ellipse. Sharp dissection was used to remove the specimen. Hemostasis was achieved with bipolar cautery. Skin was then closed with interrupted 5-0 fast-absorbing gut. Dressings were applied. The patient was then brought to the recovery room in stable condition blood loss minimal, replacement none. Sponge, needle, and instrument count correct at the end of procedure.
[2021-02-15] MEDS: Ipratropium/Albuterol Sulfate 3 ML AMPUL.NEB INHALATION (09:36)
--- NOTE | 2021-02-15 09:50 | SUR.PHASEII ---
0945 DUO NEB TX GIVEN TO PATIENT . HR DOWN TO 113. PT ABLE TO BREATHE WITHOUT DIFFICULTY. LUNGS CLEAR.
== END 2021-02-15 10:33 | disposition home or self-care (01) ==
LOC: SDC 07:10 → AC 07:10
PROVIDERS: Anesthesiology; PCP Student in an Organized Health Care Education/Training Program; Referring Provider Otolaryngology; Visit Provider Otolaryngology
PROC: (CPT 11442; principal; 2021-02-15 08:30)
DX: D23.21 Other benign neoplasm of skin of right ear and external auricular canal (principal); D23.22 Other benign neoplasm of skin of left ear and external auricular canal; L72.0 Epidermal cyst; K58.9 Irritable bowel syndrome, unspecified; F41.9 Anxiety disorder, unspecified; F32.A Depression, unspecified; K21.9 Gastro-esophageal reflux disease without esophagitis; J45.909 Unspecified asthma, uncomplicated; Z79.899 Other long term (current) drug therapy
CPT/HCPCS: 00300; 11442; 81025; 87426; 88305; 88312; 94640; C9803; J7120; J2405

== ENCOUNTER 2021-04-15 14:30 | Outpatient (CLI) | payer MEDICAID, SELFPAY ==
[2021-04-15 16:09] LABS: Amphetamine Urine VISTA NEGATIVE (<1000 ng/mL); Barbiturate Urine VISTA NEGATIVE (< 200 ng/mL); Benzodiazepine Urine VISTA NEGATIVE (< 200 ng/mL); Cocaine Urine VISTA NEGATIVE (< 300 ng/mL); Ecstacy Urine VISTA NEGATIVE (< 500 ng/mL); Methadone Urine VISTA NEGATIVE (< 300 ng/mL); PCP Urine VISTA NEGATIVE (< 25 ng/mL); THC Urine VISTA NEGATIVE (< 50 ng/mL); Vista UDS pH Range 6
[2021-04-19 15:07] LABS: Chlamydia By Nucleic Acid AMP Negative (Negative)
[2021-04-19 16:04] LABS: Gonococcus By Nucleic Acid AMP Negative (Negative)
[2021-04-20 16:29] LABS: HPV Reflexed? NOT INDICATED
== END 2021-04-15 23:59 | disposition short-term general hospital (02) ==
LOC: LABSPEC 14:32
PROVIDERS: PCP Student in an Organized Health Care Education/Training Program; Visit Provider Obstetrics & Gynecology
DX: O09.90 Supervision of high risk pregnancy, unspecified, unspecified trimester (principal); Z3A.00 Weeks of gestation of pregnancy not specified
CPT/HCPCS: 80307; 87086; 87088; 87491; 87591; 88175; G0145

== ENCOUNTER 2021-04-27 08:57 | Outpatient (CLI) | payer MEDICAID, SELFPAY ==
[2021-04-27 09:26] LABS: Absolute Lymphocyte Count 1.35 X10^3/uL (0.83-4.51); Basophil# 0.02 X10^3/uL; Basophil% 0.3 % (0-1); Eosinophil# 0.03 X10^3/uL; Eosinophils% 0.4 % (0-5); Hematocrit 44.1 % (37-47); Hemoglobin 14.7 g/dL (12.0-15.0); Lymphocyte # 1.35 X10^3/ul (0.83-4.51); Mean Corp Hgb Conc 33.3 g/dL (32-36); Mean Corpuscular Hgb 31.1 pg (27.0-32.0); Mean Corpuscular Volume 93.4 fL (81-99); Mean Platelet Vol. 10.7 fl (6.2-12.0); Monocyte# 0.57 X10^3/uL; Monocyte% 7.2 % (0-10); NRBC Flagged by Analyzer 0 % (0-5); Neutrophil # 5.97 X10^3/uL (2.7-7.7); Neutrophil % 74.8 % (47-70); Platelet Count 302 K/mm3 (150-450); RBC Distribution Width CV 12.2 % (11.6-14.6); RBC Distribution Width SD 42.2 fl (35.1-43.9); Red Blood Count 4.72 M/mm3 (4.2-5.4)
[2021-04-27 10:04] LABS: NATERA MAILED SPECIMEN
[2021-04-27 10:33] LABS: HIV - WCH Non-Reactive (Nonreactive); Hepatitis B Surface Antigen Non-Reactive (Nonreactive); Hepatitis C Antibody Non-Reactive (Nonreactive); Rubella IgG Reactive (Nonreactive); Syphilis Antibodies Non-reactive
== END 2021-04-27 23:59 | disposition short-term general hospital (02) ==
LOC: LAB 08:59
PROVIDERS: PCP Student in an Organized Health Care Education/Training Program; Referring Provider Obstetrics & Gynecology; Visit Provider Obstetrics & Gynecology
DX: Z34.81 Encounter for supervision of other normal pregnancy, first trimester (principal); Z31.430 Encounter of female for testing for genetic disease carrier status for procreative management
CPT/HCPCS: 36415; 85025; 86703; 86762; 86780; 86803; 86850; 86900; 86901; 87340

== ENCOUNTER 2021-06-08 11:39 | Outpatient (CLI) | payer MEDICAID, SELFPAY ==
[2021-06-08] MEDS: 0.9% NaCl Peripheral Flush Adult/Peds IV ×2 (12:06→12:15)
[2021-06-08] MEDS: Ondansetron 4 MG/2 ML Vial IV (12:07)
[2021-06-08] MEDS: Hydrocortisone Sod Succinate 100 MG/2 ML Vial IV (12:12)
[2021-06-08] MEDS: Dextrose 5%-Lactated Ringers 1,000 ML 999 ML IV (12:15)
[2021-06-08 12:20] VITALS: BP 113/72; PULSE 80; RESP 16; TEMP 36.6; O2SAT 100
[2021-06-08 13:02] LABS: ALB/GLOB Ratio 0.7 RATIO (0.9-2.4); AST(SGOT) 23 U/L (15-37); Alanine Aminotransfer ALT/SGPT 24 U/L (13-56); Alkaline Phosphatase 83 U/L (45-117); Anion Gap 6 (5-15); BUN 6 mg/dL (7-18); Calcium,Total 8.5 mg/dL (8.5-10.1); Chloride 105 mmol/L (98-107); EST Glomerular Filtration Rate 128 mL/min (>60); Est Glom Filt Rate - Afr Amer 155 mL/min (>60); Globulin 4.3 g/dL (2.2-4.2); Glucose 70 mg/dL (74-106); Magnesium 2.2 mg/dL (1.6-2.6); Potassium 3.4 mmol/L (3.5-5.1); Protein, Total 7.3 g/dL (6.4-8.2); Sodium Level 137 mmol/L (136-145); Thyroid Stim Hormone (TSH) 0.71 uIU/mL (0.358-3.74)
[2021-06-08 13:50] VITALS: BP 112/69; PULSE 84
== END 2021-06-08 23:59 | disposition home or self-care (01) ==
LOC: MEDOUTP 11:40
PROVIDERS: PCP Student in an Organized Health Care Education/Training Program; Referring Provider Obstetrics & Gynecology; Visit Provider Obstetrics & Gynecology
DX: E86.0 Dehydration (principal)
CPT/HCPCS: 96365; 96361; 96375 ×2; 80053; 83735; 84443; A4216; J2405; J3490

== ENCOUNTER 2021-08-03 07:00 | Inpatient (IN) | payer MEDICAID, SELFPAY ==
[2021-08-03] VITALS (13 sets, daily range): BP systolic 106–122; BP diastolic 54–77; PULSE 83–113; TEMP 36.5–37.4; O2SAT 94–98; BMI 29.3
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
[2021-08-03] MEDS: Lactated Ringers 1,000 ML 50 ML IV (08:40)
[2021-08-03 09:16] LABS: Absolute Lymphocyte Count 1.72 X10^3/uL (0.83-4.51); Absolute Neutrophil Count 6.7 X10^3/uL (2.0-7.7); Basophil# 0.02 X10^3/uL; Basophil% 0.2 % (0-1); Eosinophil# 0.04 X10^3/uL; Eosinophils% 0.4 % (0-5); Hematocrit 36.7 % (37-47); Hemoglobin 12.5 g/dL (12.0-15.0); Lymphocyte # 1.72 X10^3/ul (0.83-4.51); Lymphocyte % 18.3 % (19-41); Mean Corp Hgb Conc 34.1 g/dL (32-36); Mean Corpuscular Hgb 32.6 pg (27.0-32.0); Mean Corpuscular Volume 95.8 fL (81-99); Mean Platelet Vol. 11.9 fl (6.2-12.0); Monocyte# 0.85 X10^3/uL; NRBC Flagged by Analyzer 0 % (0-5); Neutrophil # 6.73 X10^3/uL (2.7-7.7); Neutrophil % 71.7 % (47-70); Platelet Count 233 K/mm3 (150-450); RBC Distribution Width CV 13.1 % (11.6-14.6); RBC Distribution Width SD 45.9 fl (35.1-43.9); Red Blood Count 3.83 M/mm3 (4.2-5.4); White Blood Count 9.4 K/mm3 (4.4-11.0)
[2021-08-03 09:16] LABS: Mucous, Urine 0 SEEN /hpf (<or=2+); Red Blood Cells-Urine 0 SEEN /hpf (0-5)
[2021-08-03 09:24] LABS: International Normalized Ratio 1.1; Prothrombin Time (Protime)PT. 13.4 SECONDS (11.7-14.9)
[2021-08-03 09:25] LABS: Partial Thromboplast Time 28.4 Seconds (24.1-36.2)
[2021-08-03 09:29] LABS: Color, Urine Yellow (Yellow); Glucose, Dipstick Normal (Normal); Ketone-Dipstick Negative (Negative); Leukocyte Esterase-Dipstick 100 /ul (Negative); Nitrite-Dipstick Negative (Negative); Occult Blood-Urine Negative /ul (Negative); Protein-Dipstick Negative (Negative); Specific Gravity, Urine 1.005 (1.002-1.030); Urine Bilirubin Dipstick Negative (Negative); Urine Clarity Clear (Clear); Urine Urobilinogen Normal (Normal)
[2021-08-03 09:36] LABS: Amphetamine Urine VISTA NEGATIVE (<1000 ng/mL); Barbiturate Urine VISTA NEGATIVE (< 200 ng/mL); Benzodiazepine Urine VISTA NEGATIVE (< 200 ng/mL); Cocaine Urine VISTA NEGATIVE (< 300 ng/mL); Ecstacy Urine VISTA NEGATIVE (< 500 ng/mL); Methadone Urine VISTA NEGATIVE (< 300 ng/mL); PCP Urine VISTA NEGATIVE (< 25 ng/mL); THC Urine VISTA NEGATIVE (< 50 ng/mL); Vista UDS pH Range 7
[2021-08-03 09:39] LABS: Fibrinogen 378 mg/dl (203-444)
[2021-08-03 09:41] LABS: Bacteria 1+ /hpf (None Seen); Squamous Epithelial Cells - UA 0-5 SEEN /hpf (5-10); White Blood Cells 0-5 SEEN /hpf (0-5)
[2021-08-03 09:41] LABS: Hemoglobin A1c 4.8 % (3.8-5.6)
[2021-08-03] MEDS: miSOPROStol 200 MCG Tablet 800 MCG VAGINAL (09:52)
[2021-08-03 09:59] LABS: ALB/GLOB Ratio 0.6 RATIO (0.9-2.4); AST(SGOT) 19 U/L (15-37); Alanine Aminotransfer ALT/SGPT 16 U/L (13-56); Albumin, Serum 2.3 g/dL (3.2-5.0); Alkaline Phosphatase 71 U/L (45-117); Anion Gap 8 (5-15); BUN 4 mg/dL (7-18); BUN/Creat Ratio 7.5 RATIO (10-20); Calcium,Total 8.2 mg/dL (8.5-10.1); Chloride 104 mmol/L (98-107); Creatinine, Serum 0.53 mg/dL (0.55-1.02); EST Glomerular Filtration Rate 147 mL/min (>60); Est Glom Filt Rate - Afr Amer 178 mL/min (>60); Globulin 3.6 g/dL (2.2-4.2); Glucose 95 mg/dL (74-106); Potassium 3.6 mmol/L (3.5-5.1); Protein, Total 5.9 g/dL (6.4-8.2); Sodium Level 136 mmol/L (136-145)
[2021-08-03 10:02] LABS: Syphilis Antibodies Non-reactive
[2021-08-03 13:44] LABS: Group B Strep DNA By PCR Negative (Negative); Internal Control PASS; Probe Check PASS; Specimen Processing Control PASS
[2021-08-03 14:18] LABS: Kleihauer-Betke Negative
[2021-08-03] MEDS: miSOPROStol 200 MCG Tablet 400 MCG VAGINAL (14:21)
[2021-08-03] MEDS: miSOPROStol 200 MCG Tablet PO ×2 (18:08→21:59)
[2021-08-03] MEDS: 0.9% Saline Lock 10 ML Syringe IV ×2 (18:15→18:54)
[2021-08-03] MEDS: Ondansetron 4 MG/2 ML Vial IV (18:15)
[2021-08-03] MEDS: Acetaminophen 500 MG Tablet PO (18:47)
[2021-08-03] MEDS: HYDROmorphone 0.5 MG/0.5 ML SYRINGE 1 MG IV (18:54)
[2021-08-04] VITALS (30 sets, daily range): BP systolic 96–139; BP diastolic 52–82; PULSE 75–129; RESP 14; TEMP 36.2–37.4; O2SAT 73–98
[2021-08-04] MEDS: Lactated Ringers 500 ML 999 ML IV (02:02)
[2021-08-04] MEDS: fentaNYL-bupivacaine (epidural) 100 ML BAG EPIDURAL (02:34)
[2021-08-04] MEDS: miSOPROStol 200 MCG Tablet PO (02:54)
--- NOTE | 2021-08-04 03:15 | PLAC_PTH ---
PATIENT: LEIDY WILCOX LOC: [facility] U#:[id number] AGE/SX: 25/F ROOM: WP021 RE08/03/[address]: Dr. Svitlana Malik MD : 1995 BED: 1 DIS: 08/04/2021 SPEC #: [id number] RECD: 08/04/21 09:19 STATUS: UBALDO BUENO #: [id number] DINO: 08/04/21 03:[address]: Svitlana Malik DEPT: SURGICAL PATHOLOGY RECD BY: Bella Whelan ENTERED: 08/04/21 09:20 SP TYPE: PLACENTA OTHR DR: Dr. Evelio Hernandez DO Tissues: Placenta, NOS Procedures: Surgery Specimen Level V HEADER OPERATION: Spontaneous Vaginal Delivery PRE-OP DIAGNOSIS: Demise TISSUE SUBMITTED: Placenta MICROSCOPIC DIAGNOSIS Veras placenta, 24 weeks (237 gm): Umbilical cord ? trivascular with no inflammation. Placental membranes ? mild chronic decidual inflammation. Placental disc ? immature villi consistent with age & mild acute decidual inflammation. AM:hyun 08/05/2021 COMMENT Case has been reviewed in consultation with Dr. Tim who concurs with the above diagnosis. IDC:SJ MICROSCOPIC DESCRIPTION Slides are reviewed. GROSS DESCRIPTION SPECIMEN: PLACENTA / CLINICAL INFORMATION: A. Weight: Not noted B. Gestational Age: 24 weeks C. Sex: Female PLACENTAL WEIGHT (POST FIXATION): 237 gm PLACENTAL DIMENSIONS: 13 x 12 x 3 cm PLACENTAL SHAPE: Usual ovoid. The body of the placenta is partly disrupted, however, appears to be complete. PLACENTAL WEIGHT FOR GESTATIONAL AGE: Within 10-99th percentile MEMBRANES - Present A. Insertion: Marginal B. Site of rupture from edge: The membranes appear to be fragmented and ruptured at edge of placental disc C. Color of membrane: Meza-soto D. Abnormalities: None UMBILICAL CORD - Present A. Color: Meza-soto B. Insertion: The umbilical cord is paracentrally inserted and congested and macerated. C. Length: 45 cm D. Diameter: Up to 1.5 cm E. Number of vessels: Three F. Abnormalities: Mildly increased number of spirals is noted. PLACENTAL DISC - Present A. Color of surface: Meza-soto B. surface abnormalities: None C. Maternal cotyledons: Intact with minimal tears D. Attached retro placental clot: No clot E. Cut surface: Dark red and spongy F. Lesions: None G. Separate clot: Absent SECTIONS SUBMITTED: 1. Membrane roll 2. Cord, maternal end 3. Cord, end 4. Placental disc, and maternal surfaces 5. Placental disc, and maternal surfaces 6. Placental disc, and maternal surfaces SJ:hyun 08/04/2021 TC:2 CPT: 54563
[2021-08-04] MEDS: Oxytocin 30 units/NS 500 ml 30 UNITS/500 ML IV.SOLN 334 UNITS IV (03:19)
[2021-08-04] MEDS: 0.9% Saline Lock 10 ML Syringe IV (03:29)
--- NOTE | 2021-08-04 03:35 | OP.PCM_ITS ---
Assessment & Plan (1) Vaginal delivery: COMMENT: SM IOL 24 week IUFD girl [place] oligohydramnios seen at time of loss, nl anatomy and NIPT (2) Encounter for induction of labor: COMMENT: cytotec IOL planned (3) IUFD at 20 weeks or more of gestation: COMMENT: oligo seen at time of evaluation. measuring 22 weeks (4) Depression: COMMENT: prozac, counseling encouraged (5) Hyperemesis affecting , antepartum: COMMENT: zofran, medrol dose pack. IVFs given 06/08. follow weekly until stable. 5% weight loss. (6) Asthma affecting , antepartum: COMMENT: sees PMW (7) Supervision of high risk , antepartum: COMMENT: [id number] MISSY: 11/21/21Girl PC: Scooter Neal Spouse: Humza (8) : QUALIFIERS: Weeks of gestation: 17 weeks Qualified Code(s): Z3A.17 - 17 weeks gestation of COMMENT: discussed genetic and carrier, NIPT low risk, carrier neg. 274/274 Maternal Data Information MISSY Calculator Estimated Delivery Date Method Current WG Current Estimate 11/21/21 LMP (Certain) 24w 3d Vaginal Delivery Operative Information Date of Procedure: 08/04/21 Pre-Operative Diagnosis: IOL IUFD Post-Operative Diagnosis: same Surgery / Procedure Performed: Spontaneous Vaginal Delivery Type of Anesthesia: Epidural Special Medications: none Estimated Blood Loss: 200 Fluids Replaced: crystalloid Findings Description of Procedure: Patient proceeded to completely dilated and pushed and the infant was delivered inside the amniotic sac and the placenta was noted to be intact delivered with the sac also. Infant was vertex at time of delivery. Amniotic sac was opened and no gross abnormalities or abnormal umbilical cord formations were seen. Extremely low amniotic fluid was noted. The fetus appeared to be normal weight for estimated age of 24 weeks. Please see nursing notes for additional information. EBL 200 cc. Patient tolerated the delivery well. No lacerations noted Presentation: [place] Amniotic Membrane Rupture Type: Artificial Amniotic Fluid Description: Clear Placental Delivery Description: Spontaneous Placenta Disposition: [facility] Cord Vessel Description: 3 Vessels Cord Entanglement: None Delayed Cord Clamping: Yes Post Vaginal Delivery Medications Given After Delivery: IV Pitocin Episiotomy Description: None Laceration: None Complication Complications: None Procedures Urinary/Genital [id number]: [id number] Vaginal Delivery+PP Care([facility])
--- NOTE | 2021-08-04 03:38 | PCM.DC ---
Discharge Instructions Diet Discharge Diet: No restrictions Activity Discharge Activity: Return to Normal Activity, May Not Drive (while taking narcotic pain medications.) and May Shower May resume sexual activity in: 4-6 weeks Dressing / Incision Call your doctor if your incision/area has: Continuous Slow Oozing, Sudden Increased Bleeding, Increased Pain/ Swelling, Increased Redness and Foul Smelling Discharge Follow Up Care Please Follow Up With: Svitlana Malik MD When: Call [phone] to make an appointment with your doctor in 4 weeks. Test Results: Test results from this visit will be discussed in further detail at your follow-up appointment, if applicable. Discharge Plan Admission Admit Date/Time: 08/03/21 07:00 Attending Provider: Svitlana Malik Primary Care Provider: Evelio Hernandez Discharge Orders/Prescriptions Prescriptions: No Action fexofenadine 180 mg tablet 180 mg PO DAILY RF: 0 DHA 200 mg capsule 200 mg PO DAILY RF: 0 ascorbic acid (vitamin C) [Vitamin C] 500 mg tablet extended release 500 mg PO DAILY RF: 0 coenzyme [id number] E 100 mg-100 unit capsule 100-100 mg-unit capsule 1 cap PO DAILY RF: 0 ipratropium bromide 21 mcg (0.03 %) spray,non-aerosol 2 spray intranasal BID RF: 0 pyridoxine (vitamin B6) 500 mg tablet 500 mg PO DAILY RF: 0 ondansetron HCl 4 mg tablet 4 mg PO Q4H PRN (Reason: nausea and vomiting) 30 Days Qty: 120 RF: 3 epinephrine 0.3 MG syringe 0.3 mg IM DAILY PRN (Reason: Allergies) RF: 0 albuterol sulfate 1 INHALER inhaler 1 puff inhalation Q4H PRN PRN (Reason: Asthma) RF: 0 potassium chloride 10 mEq tablet extended release 10 meq PO BID RF: 0 pantoprazole 40 mg tablet,delayed release (DR/EC) 40 mg PO BID RF: 0 fluoxetine 20 mg tablet 60 mg PO DAILY RF: 0 fluticasone propion-salmeterol [Advair Diskus] 250-50 mcg/dose blister with device 1 inh inhalation BID RF: 0 Spiriva Respimat 1.25 mcg/actuation mist 2 puff inhalation DAILY RF: 0 Referrals / Follow Up: Evelio Hernandez DO [Primary Care Provider] - Disposition Disposition (needs filled in before D/C Order can be placed): Home, Self Care
[2021-08-04] MEDS: Acetaminophen 500 MG Tablet PO (05:00)
[2021-08-04] MEDS: Ondansetron 4 MG/2 ML Vial IV (05:53)
[2021-08-04 09:51] LABS: Toxoplasma Gondii IgG < 3.0 IU/mL (0.0-7.1)
--- NOTE | 2021-08-04 09:51 | NURSING ---
[facility] called at this time per patient request. Notified of parents desire to use their services for cremation and that it will be sometime this afternoon for release of body. States that they will wait to contact the parents until they hear that they are ready to release the body.
--- NOTE | 2021-08-04 11:29 | NURSING ---
Talked with manager social services Ileana Lindsey about PHQ-9 score and patient hx. States that patient needs a 1:1 sitter until she sees the patient or the physician sees the patient. Called Dr. Guzman's office and talked to nurse elinor about the situation to see if Dr. Guzman can come assess the situation. Nurse states that she will call me back.
--- NOTE | 2021-08-04 11:41 | NURSING ---
Nurse Yun calls from Dr. Guzman's office. States that she will be down in the next hour to see her.
--- NOTE | 2021-08-04 11:48 | NURSING ---
Kim Pedraza OCCUPATIONAL PHYSICIAN at bedside to see patient at this time. Pt had 1:1 sitter till OCCUPATIONAL PHYSICIAN at bedside
--- NOTE | 2021-08-04 11:52 | NURSING ---
Lucinda Pedraza WIRED MUSIC OPERATOR states to this nurse that she will put in a note to clear the patient from being a 1:1 sitter
--- NOTE | 2021-08-04 11:59 | PCM.PN.OB ---
Subjective Subjective Patient doing well without complaints, scored high on depressive scale. [employer] Business Analyst with her but also spouse Humza and friend Lizabeth. Tolerating PO. Ambulating and voiding without difficulty. Objective Data Objective Data Vital Signs: Vital Signs Temp Pulse Resp BP Pulse Ox 97.9 F 86 14 115/67 98 08/04/21 09:17 08/04/21 09:19 08/04/21 09:17 08/04/21 09:17 08/04/21 09:19 Oxygen Delivery Method Room Air Weight: 171 lb Body Mass Index (BMI) 29.3 Intake & Output: Intake and Output for Last 24 Hours 08/02/21 08/03/21 08/04/21 23:59 23:59 23:59 Intake Total 0 / 0 1256.67 / 1256.67 Balance 0 / 0 1256.67 / 1256.67 Lab / Micro Data Result Diagrams: 08/03/21 08:40 08/03/21 08:40 Labs: Laboratory Results - last 24 hr 08/03/21 08:40: Corey Santizo Hgb Negative 08/03/21 08:50: Group B Strep DNA Negative, Specimen Comment Not Reportable 08/03/21 09:40: Toxoplasma IgG Ab < 3.0 Micro: Microbiology 08/03/21 08:30 Urine, Clean Catch Urine Culture - Final Mixed Gram Positive Organisms 08/03/21 08:30 Nasal Secretion SARS-CoV-2 Antigen (Rapid) - Final Physical Exam Const oriented x3 Constitutional Narrative: Tearful but appropriate General Appearance: cooperative and well kempt Resp normal respiratory effort GI soft to palpation, non-tender and non-distended GI Narrative: FF below U Assessment & Plan (1) Vaginal delivery: COMMENT: SM IOL 24 week IUFD girl Clear oligohydramnios seen at time of loss, nl anatomy and NIPT (2) IUFD at 20 weeks or more of gestation: COMMENT: oligo seen at time of evaluation. measuring 22 weeks (3) Depression: QUALIFIERS: Depression Type: major depressive disorder Major depression recurrence: recurrent Active/Remission status: in partial remission Qualified Code(s): F33.41 - Major depressive disorder, recurrent, in partial remission COMMENT: prozac, counseling encouraged PLAN: Patient denies current thoughts of self harm or to others. Appropriately tearful and answers questions appropriately with good eye contact. Support in place with and friend. They confirm patient will not be alone. Son Scooter also with her. Discussed increase in prozac dose, declines at this time. Patient will see SW and if stable discharge later today.
--- NOTE | 2021-08-04 12:05 | NURSING ---
[facility] called to come at this time at parent's request.
[2021-08-04] MEDS: FLUoxetine 20 MG Capsule 60 MG PO (12:16)
--- NOTE | 2021-08-04 13:41 | NURSING ---
Weight of baby 1#2oz, length of baby 12.5 inches
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
[2021-08-05 14:27] LABS: Pathology Specimen OB SEE PATHOLOGY REPORT
[2021-08-05 16:10] LABS: Dilute Prothrombin Time (dPT) 32.9 sec (0.0-47.6); Dilute Russell Viper Venom 33.7 sec (0.0-47.0); PTT-LA 32.2 sec (0.0-51.9); Thrombin Time 16.4 sec (0.0-23.0); dPT Confirm Ratio 1.06 Ratio (0.00-1.34)
[2021-08-05 17:22] LABS: Anti-Cardiolipin Ab, IgA, Qn < 9 APL U/mL (0-11); Anti-Cardiolipin Ab, IgG, Qn < 9 GPL U/mL (0-14); Anti-Cardiolipin Ab, IgM, Qn < 9 MPL U/mL (0-12); CMV Acute Antibody IgM < 30.0 AU/mL (0.0-29.9); CMV Antibody IgG < 0.60 U/mL (0.00-0.59); Interpretation Comment: (.); PARVOVIRUS B19 IGG 5.3 index (0.0-0.8); Toxoplasma Gondii IgM < 3.0 AU/mL (0.0-7.9)
--- NOTE | 2021-08-17 12:15 | NURSING ---
Message left for Muriel for follow-up. Instructed to call back to unit and ask for Scarlet or someone in education if she has any questions/concerns.
--- NOTE | 2021-09-07 15:14 | NURSING ---
Message left for Muriel - attempting to make contact for follow-up to see how she is doing, and to make contact to deliver flashdrive of photos. Message to call back to unit for this nurse (Lucia), or to ask for education, and they could get me a message so that we could schedule a time to get photos to her.
--- NOTE | 2021-09-07 19:41 | NURSING ---
Pt. returned phone call after message left today. Called at ~1630 and requesting to come now to see photos. Pt. to floor at ~1700, taken to office and photos reviewed. Pt. tearful while viewing, but also smiling and giggling at some of the photos. Reports she is glad to see pics - although bittersweet. Reports that she is doing ok for the most part. Kids handling ok now, had a hard time for a while. Pt. reports sleeping mostly ok, eating. Reports she is getting counseling, not involved in any support groups at this time. Pt. on floor for appx. 10 min, then ready to go. Photos sent home on Flukle for her. Encouraged to call to floor if needed.
== END 2021-08-04 16:00 | disposition home or self-care (01) | DRG 560 ==
PROVIDERS: Admitting Provider Obstetrics & Gynecology; PCP Student in an Organized Health Care Education/Training Program; Referring Provider Obstetrics & Gynecology; Visit Provider Obstetrics & Gynecology
DX: O36.4XX0 Maternal care for intrauterine death, not applicable or unspecified (principal); Z37.1 Single stillbirth; O41.02X0 Oligohydramnios, second trimester, not applicable or unspecified; O99.344 Other mental disorders complicating childbirth; F33.41 Major depressive disorder, recurrent, in partial remission; F41.9 Anxiety disorder, unspecified; J45.909 Unspecified asthma, uncomplicated; K58.9 Irritable bowel syndrome, unspecified; K21.9 Gastro-esophageal reflux disease without esophagitis; Z3A.24 24 weeks gestation of pregnancy; O99.52 Diseases of the respiratory system complicating childbirth; O99.62 Diseases of the digestive system complicating childbirth; Z79.899 Other long term (current) drug therapy
CPT/HCPCS: 59050; 80053; 80307; 81001; 83036; 84443; 85025; 85384; 85460; 85610; 85730; 86147; 86644; 86645; 86747; 86777; 86778; 86780; 86850; 86900; 86901; 87081; 87086; 87088; 87426; 87653; 88307; 99218; J7120; A4216; G0378; J2405

== ENCOUNTER 2021-08-08 20:18 | Emergency (ER) | payer MEDICAID, SELFPAY ==
[2021-08-08 20:19] VITALS: BP 138/87; PULSE 102; RESP 17; TEMP 36.6; O2SAT 98; BMI 30.2
--- NOTE | 2021-08-08 20:43 | EDS_ITS ---
HPI <Dr. Balaji Jones DO - Last Filed: 08/08/21 20:59> HPI - Female History of Present Illness Chief Complaint: Female C/O Informant: patient Narrative Narrative: 25-year-old female. States that she had a stillbirth on Monday. Her agency service coordinator is Dr. Malik. She states that she has not had any bleeding since . She states that today she has developed lower abdominal pain and states that she saw a bubble coming out of her vagina. She did not speak with her agency service coordinator limits but came right to the hospital. She states that she tried to push the bubble back into the vaginal vault. PENDING SALE TO [facility] <Dr. Balaji Jones DO - Last Filed: 08/08/21 20:59> PENDING SALE TO [facility] Medical History Allergic rhinitis Anxiety Asthma Chronic cough Depression Eustachian tube dysfunction Gastric reflux History of IBS History of steroid therapy IBS (irritable bowel syndrome) Low-lying placenta in second trimester Non-smoker Posterior auricular lymphadenopathy Vestibular migraine Wears contact lenses Wears glasses Home Medications albuterol sulfate 1 puff INHALATION Q4H PRN PRN 08/17/17 [History Last Taken 08/11/17] epinephrine 0.3 mg IM DAILY PRN 08/17/17 [History Last Taken Unknown] docosahexaenoic acid 200 mg capsule 200 mg PO DAILY 06/25/19 [History Last Taken Unknown] fexofenadine 180 mg tablet 180 mg PO DAILY 06/25/19 [History Last Taken Unknown] ascorbic acid (vitamin C) 500 mg tablet,extended release 500 mg PO DAILY 06/26/19 [History Last Taken Unknown] coenzyme L68-[id number] E 100 mg-100 unit capsule 1 cap PO DAILY 06/26/19 [History Last Taken Unknown] fluoxetine 60 mg PO DAILY 02/08/21 [History Last Taken Unknown] pantoprazole 40 mg PO BID 02/08/21 [History Last Taken 02/15/21 07:00] potassium chloride 10 meq PO BID 02/08/21 [History Last Taken Unknown] ipratropium bromide 21 mcg (0.03 %) nasal spray 2 spray INTRANASAL BID 03/11/21 [History Last Taken Unknown] pyridoxine (vitamin B6) 500 mg tablet 500 mg PO DAILY 04/05/21 [History Last Taken Unknown] ondansetron HCl 4 mg tablet 4 mg PO Q4H PRN 30 Days #120 tab 06/08/21 [Rx Last Taken Unknown] fluticasone propion-salmeterol [Advair Diskus] 1 inh INHALATION BID 08/03/21 [History Last Taken Unknown] tiotropium bromide [Spiriva Respimat] 2 puff INHALATION DAILY 08/03/21 [History Last Taken Unknown] doxycycline hyclate 100 mg PO BID 10 Days #20 cap 08/09/21 [Rx Last Taken Unknown] hydrocodone-acetaminophen 1 tab PO Q6H PRN 3 Days #12 tab 08/09/21 [Rx Last Taken Unknown] ondansetron 4 mg PO TID PRN #21 tab 08/09/21 [Rx Last Taken Unknown] Allergy/AdvReac Type Severity Reaction Status Date / Time COVID-19 vaccine, mRNA, Allergy Severe Anaphylaxis Verified 08/08/21 20:22 [id number], bee venom protein (honey bee) Allergy Anaphylaxis Verified 08/08/21 20:22 omalizumab [From Xolair] Allergy Anaphylaxis Verified 08/08/21 20:22 prochlorperazine edisylate Allergy Swelling Verified 08/08/21 20:22 [From Compazine] prochlorperazine maleate Allergy Swelling Verified 08/08/21 20:22 [From Compazine] Family History Brother Asthma Mother Hypertension Heart disease Father Depression Heart disease Hyperlipidemia Hypertension Surgical History Hx of colonoscopy Hx of dilation and curettage Social History household members: family current occupational status: unemployed pets and animals: Yes Smoking Status: Never smoker second hand exposure: No alcohol intake: never substance use type: does not use seatbelt use: always do you feel safe at home: Yes additional social history: trans male, - Humza ROS <Dr. Balaji Jones DO - Last Filed: 08/08/21 20:59> ROS ED Constitutional Constitutional ED: Denies chills, fever(s) or weight loss Eyes Eyes: Denies change in vision or diplopia ENT ENT ED: Denies ear pain, rhinorrhea or sore throat Cardiovascular Cardiovascular: Denies chest pain, orthopnea, palpitations or racing heartbeat Respiratory/Chest Respiratory/Chest: Denies cough, dyspnea or orthopnea Gastrointestinal Gastrointestinal: Denies abdominal pain, diarrhea, nausea or vomiting Genitourinary Genitourinary ED: Denies dysuria, hematuria or urinary frequency Musculoskeletal Musculoskeletal: Denies arthralgias or myalgias Integumentary Denies abscess or rash Neurologic Neurologic: Denies headache(s) or weakness Psychiatric Psychiatric: Denies anxiety, depression, suicidal ideation or suicidal thoughts Endocrine Endocrinology: Denies polydipsia, polyphagia or polyuria Allergic/Immunologic Allergic/Immunologic ED: Denies mouth swelling, tongue swelling or urticaria EXAM <Dr. Balaji Jones, DO - Last Filed: 08/08/21 20:59> Physical Exam Const Vital Signs: 08/08/21 20:19 08/09/21 00:18 Temperature 97.8 F Temperature Source Temporal Pulse Rate 102 H 83 Respiratory Rate 17 15 Blood Pressure 138/87 H 124/85 H Blood Pressure Mean 104 98 Pulse Ox 98 96 Oxygen Delivery Method Room Air Room Air Positive well nourished and well developed General Appearance ED: well developed HEENT Reports normocephalic, head/scalp atraumatic, TM's clear and moist mucous membranes Negative for trauma Tympanic Membrane ED: Yes TM's clear Eyes PERRL and EOMs intact bilaterally Neck no lymphadenopathy, supple and no JVD Resp normal respiratory effort and clear to auscultation bilaterally Cardio regular rate, regular rhythm and no murmurs GI normal to inspection, nondistended, normoactive bowel sounds and non-tender Palpation: soft Back/Spine no CVA tenderness and normal ROM Extremity normal to inspection General Extremety ED: Negative for edema General Extremity: Negative for edema Neuro oriented x3 and CN's II-XII intact bilaterally Sensorium / Orientation: alert Motor Exam: strength 5/5 throughout Psych mental status grossly normal Mood & Affect: Negative for depressed or tearful Skin no rashes or lesions noted and no wounds <Dr. Mateo Reynolds, DO - Last Filed: 08/09/21 00:40> Physical Exam Const Vital Signs: 08/08/21 20:19 08/09/21 00:18 Temperature 97.8 F Temperature Source Temporal Pulse Rate 102 H 83 Respiratory Rate 17 15 Blood Pressure 138/87 H 124/85 H Blood Pressure Mean 104 98 Pulse Ox 98 96 Oxygen Delivery Method Room Air Room Air MDM <Dr. Balaji Jones, DO - Last Filed: 08/08/21 20:59> [facility] Narrative Medical decision making narrative: Began shaking and crying even before the pelvic exam started. She continued to do this throughout the pelvic exam so it is difficult for me to say how much of this was actual pain or her being scared. I do not see any masses or bubbles in the vagina. I see some mild bleeding. Lab Data Labs: Laboratory Results - last 24 hr 08/08/21 08/08/21 08/08/21 21:00 21:00 21:00 WBC 10.7 RBC 4.06 L Hgb 13.5 Hct 38.8 MCV 95.6 MCH 33.3 H MCHC 34.8 RDW Std Deviation 44.6 H RDW Coeff of Win 12.7 Plt Count 254 MPV 11.3 Immature Gran % (Auto) 0.500 Neut % (Auto) 76.0 H Lymph % (Auto) 13.8 L [place] % (Auto) 8.7 Eos % (Auto) 0.7 Baso % (Auto) 0.3 Absolute Neuts (auto) 8.1 H Absolute Lymphs (auto) 1.47 Nucleated RBC % 0 Sodium 140 Potassium 3.6 Chloride 108 H Carbon Dioxide 23.0 Anion Gap 9 BUN 5 L Creatinine 0.70 Estim Creat Clear Calc 105.17 Est GFR (MDRD) Af Amer 129 Est GFR (MDRD) Non-Af 107 BUN/Creatinine Ratio 7.2 L Glucose 109 H Calcium 8.7 Blood Type AB POSITIVE Radiography Diagnostic Testing: Clinical Impression(s) from Imaging Studies Pelvis Ultrasound 08/08/21 20:57 IMPRESSION: 1. Heterogeneous endometrial complex thickening with scattered increased vascularity could suggest endometritis or minimal retained products conception. No discrete endometrial mass. Electronically Signed: Arnie Chambers MD ([place]) at 22:45 EDT , <Dr. Mateo Reynolds, DO - Last Filed: 08/09/21 00:40> [facility] Narrative Medical decision making narrative: The patient was signed out to me pending pelvic ultrasound results. The pelvic ultrasound showed some heterogeneous material within the pelvis concerning for endometritis or retained products of conception. Secondary to this the case was discussed with TECHNOLOGY DIRECTOR. They report that the stillbirth cannot complete in the placenta and I have low concern for retained products of conception. They report that because of her pain and bleeding in this ultrasound report that we can start on doxycycline for endometritis. However as she is afebrile with no leukocytosis and stable blood pressure this can be treated on an outpatient basis. Therefore the patient was started on doxycycline as well as Helvetia and Zofran for symptom control and will be discharged with TECHNOLOGY DIRECTOR follow-up Lab Data Attestation: I reviewed the patient's lab results. Labs: Laboratory Results - last 24 hr 08/08/21 08/08/21 08/08/21 21:00 21:00 21:00 WBC 10.7 RBC 4.06 L Hgb 13.5 Hct 38.8 MCV 95.6 MCH 33.3 H MCHC 34.8 RDW Std Deviation 44.6 H RDW Coeff of Win 12.7 Plt Count 254 MPV 11.3 Immature Gran % (Auto) 0.500 Neut % (Auto) 76.0 H Lymph % (Auto) 13.8 L [place] % (Auto) 8.7 Eos % (Auto) 0.7 Baso % (Auto) 0.3 Absolute Neuts (auto) 8.1 H Absolute Lymphs (auto) 1.47 Nucleated RBC % 0 Sodium 140 Potassium 3.6 Chloride 108 H Carbon Dioxide 23.0 Anion Gap 9 BUN 5 L Creatinine 0.70 Estim Creat Clear Calc 105.17 Est GFR (MDRD) Af Amer 129 Est GFR (MDRD) Non-Af 107 BUN/Creatinine Ratio 7.2 L Glucose 109 H Calcium 8.7 Blood Type AB POSITIVE Radiography Diagnostic Testing: Clinical Impression(s) from Imaging Studies Pelvis Ultrasound 08/08/21 20:57 IMPRESSION: 1. Heterogeneous endometrial complex thickening with scattered increased vascularity could suggest endometritis or minimal retained products conception. No discrete endometrial mass. Electronically Signed: Arnie Chambers MD ([place]) at 22:45 EDT , Discharge Plan Triage Chief Complaint: Female C/O ED Provider: Balaji Jones Dx/Rx/DC Orders Clinical Impression: Endometritis Instructions: Discharge Instructions for ... Prescriptions: New hydrocodone-acetaminophen 5-325 mg tablet 1 tab PO Q6H PRN (Reason: pain) 3 Days Qty: 12 RF: 0 ondansetron 4 mg tablet,disintegrating 4 mg PO TID PRN (Reason: nausea and vomiting) Qty: 21 RF: 0 doxycycline hyclate 100 mg capsule 100 mg PO BID 10 Days Qty: 20 RF: 0 No Action fexofenadine 180 mg tablet 180 mg PO DAILY RF: 0 DHA 200 mg capsule 200 mg PO DAILY RF: 0 ascorbic acid (vitamin C) [Vitamin C] 500 mg tablet extended release 500 mg PO DAILY RF: 0 coenzyme [id number] E 100 mg-100 unit capsule 100-100 mg-unit capsule 1 cap PO DAILY RF: 0 ipratropium bromide 21 mcg (0.03 %) spray,non-aerosol 2 spray intranasal BID RF: 0 pyridoxine (vitamin B6) 500 mg tablet 500 mg PO DAILY RF: 0 ondansetron HCl 4 mg tablet 4 mg PO Q4H PRN (Reason: nausea and vomiting) 30 Days Qty: 120 RF: 3 epinephrine 0.3 MG syringe 0.3 mg IM DAILY PRN (Reason: Allergies) RF: 0 albuterol sulfate 1 INHALER inhaler 1 puff inhalation Q4H PRN PRN (Reason: Asthma) RF: 0 potassium chloride 10 mEq tablet extended release 10 meq PO BID RF: 0 pantoprazole 40 mg tablet,delayed release (DR/EC) 40 mg PO BID RF: 0 fluoxetine 20 mg tablet 60 mg PO DAILY RF: 0 fluticasone propion-salmeterol [Advair Diskus] 250-50 mcg/dose blister with device 1 inh inhalation BID RF: 0 Spiriva Respimat 1.25 mcg/actuation mist 2 puff inhalation DAILY RF: 0 Primary Care Provider: Evelio Hernandez Referrals: Estee Armenta DO [STAFF PHYSICIAN] - 3-5 Days Evelio Hernandez DO [Primary Care Provider] - Disposition Disposition: Home, Self Care
--- NOTE | 2021-08-08 20:57 | US_ITS ---
STUDY: ULTRASOUND OF THE FEMALE PELVIS - COMPLETE REASON FOR EXAM: Female, 25 years old. Stillborn delivery 4 days ago, sensation of vaginal discharge. LMP: Unknown. TECHNIQUE: Transabdominal and Transvaginal TECHNICAL QUALITY: Adequate. COMPARISON: None. FINDINGS: The uterus is anteverted and is in a midline position. The uterus measures 14.4 x 8.4 x 7.3 cm. Normal uterine cervix. The endometrium measures 2.7 mm in thickness, and is hyperechoic. Thickening and heterogeneity of the endometrial complex a few scattered calcifications but no discrete mass. There are scattered areas of increased vascularity. There is no demonstrated myometrial mass. I.U.D. - The patient does not have an I.U.D. The right ovary is visualized. The right ovary measures 3.3 x 2.9 x 2.0 cm. There is no right ovarian cyst or ovarian mass. There is no visualized right adnexal mass or complex lesion. There is normal arterial and normal venous vascularity. The left ovary is visualized. The left ovary measures 3.0 x 1.9 x 1.2 cm. There is no left ovarian cyst or ovarian mass. There is no visualized left adnexal mass or complex lesion. There is normal arterial and normal venous vascularity. There is no fluid in the cul-de-sac. Visualized urinary bladder is unremarkable. US/Pelvic (Non ) IMPRESSION: 1. Heterogeneous endometrial complex thickening with scattered increased vascularity could suggest endometritis or minimal retained products conception. No discrete endometrial mass. Electronically Signed: Arnie Chambers MD ([place]) at 22:45 EDT Reading Location ID and State: [facility] / [place] , Service support ,
[2021-08-08] MEDS: Ondansetron 4 MG/2 ML Vial IV (21:13)
[2021-08-08] MEDS: Morphine 4 MG/ML Syringe IV (21:13)
[2021-08-08 21:32] LABS: Absolute Lymphocyte Count 1.47 X10^3/uL (0.83-4.51); Absolute Neutrophil Count 8.1 X10^3/uL (2.0-7.7); Basophil# 0.03 X10^3/uL; Basophil% 0.3 % (0-1); Eosinophil# 0.08 X10^3/uL; Eosinophils% 0.7 % (0-5); Hematocrit 38.8 % (37-47); Hemoglobin 13.5 g/dL (12.0-15.0); Lymphocyte # 1.47 X10^3/ul (0.83-4.51); Lymphocyte % 13.8 % (19-41); Mean Corp Hgb Conc 34.8 g/dL (32-36); Mean Corpuscular Hgb 33.3 pg (27.0-32.0); Mean Corpuscular Volume 95.6 fL (81-99); Mean Platelet Vol. 11.3 fl (6.2-12.0); Monocyte# 0.93 X10^3/uL; Monocyte% 8.7 % (0-10); NRBC Flagged by Analyzer 0 % (0-5); Neutrophil # 8.13 X10^3/uL (2.7-7.7); Platelet Count 254 K/mm3 (150-450); RBC Distribution Width CV 12.7 % (11.6-14.6); RBC Distribution Width SD 44.6 fl (35.1-43.9); Red Blood Count 4.06 M/mm3 (4.2-5.4); White Blood Count 10.7 K/mm3 (4.4-11.0)
[2021-08-08 22:07] LABS: Anion Gap 9 (5-15); BUN 5 mg/dL (7-18); BUN/Creat Ratio 7.2 RATIO (10-20); Calcium,Total 8.7 mg/dL (8.5-10.1); Chloride 108 mmol/L (98-107); EST Glomerular Filtration Rate 107 mL/min (>60); Est Glom Filt Rate - Afr Amer 129 mL/min (>60); Estimated Creatinine Clearance 105.17 ml/min; Glucose 109 mg/dL (74-106); Potassium 3.6 mmol/L (3.5-5.1); Sodium Level 140 mmol/L (136-145)
[2021-08-09 00:18] VITALS: BP 124/85; PULSE 83; RESP 15; O2SAT 96
[2021-08-09] MEDS: Ondansetron 4 MG/2 ML Vial IV (00:46)
[2021-08-09] MEDS: Doxycycline 100 MG CAPSULE PO (00:46)
[2021-08-09] MEDS: Morphine 4 MG/ML Syringe IV (00:48)
[2021-08-09 00:55] VITALS: BP 124/85; PULSE 83; RESP 15; O2SAT 96
== END 2021-08-09 00:56 | disposition home or self-care (01) ==
PROVIDERS: Emergency Provider Emergency Medicine; PCP Student in an Organized Health Care Education/Training Program; Visit Provider Emergency Medicine
DX: O99.893 Other specified diseases and conditions complicating puerperium (principal); N80.9 Endometriosis, unspecified; O99.53 Diseases of the respiratory system complicating the puerperium; J45.909 Unspecified asthma, uncomplicated; O99.345 Other mental disorders complicating the puerperium; F32.A Depression, unspecified; F41.9 Anxiety disorder, unspecified; O99.63 Diseases of the digestive system complicating the puerperium; K58.9 Irritable bowel syndrome, unspecified; K21.9 Gastro-esophageal reflux disease without esophagitis; Z79.899 Other long term (current) drug therapy
CPT/HCPCS: 76856; 80048; 85025; 86900; 86901; 96374; 96375; 96376; 99284; A4216; J2405

== ENCOUNTER → 2021-08-10 | Outpatient (CLI) | payer MEDICAID, SELFPAY ==
[2021-08-10 11:34] LABS: Absolute Lymphocyte Count 1.27 X10^3/uL (0.83-4.51); Absolute Neutrophil Count 6.6 X10^3/uL (2.0-7.7); Basophil# 0.02 X10^3/uL; Basophil% 0.2 % (0-1); Eosinophil# 0.04 X10^3/uL; Eosinophils% 0.5 % (0-5); Hematocrit 41.9 % (37-47); Hemoglobin 14.5 g/dL (12.0-15.0); Lymphocyte # 1.27 X10^3/ul (0.83-4.51); Lymphocyte % 14.3 % (19-41); Mean Corp Hgb Conc 34.6 g/dL (32-36); Mean Corpuscular Hgb 33.3 pg (27.0-32.0); Mean Corpuscular Volume 96.1 fL (81-99); Monocyte# 0.95 X10^3/uL; Monocyte% 10.7 % (0-10); NRBC Flagged by Analyzer 0 % (0-5); Neutrophil # 6.56 X10^3/uL (2.7-7.7); Neutrophil % 73.8 % (47-70); Platelet Count 280 K/mm3 (150-450); RBC Distribution Width CV 12.3 % (11.6-14.6); RBC Distribution Width SD 43.6 fl (35.1-43.9); Red Blood Count 4.36 M/mm3 (4.2-5.4); White Blood Count 8.9 K/mm3 (4.4-11.0)
== END | disposition home or self-care (01) ==
LOC: PAVLAB 11:09
PROVIDERS: PCP Student in an Organized Health Care Education/Training Program; Referring Provider Nurse Practitioner Women's Health; Visit Provider Nurse Practitioner Women's Health
DX: N71.9 Inflammatory disease of uterus, unspecified (principal); R30.9 Painful micturition, unspecified
CPT/HCPCS: 36415; 85025; 87086; 87088

== ENCOUNTER → 2021-11-22 | Outpatient (CLI) | payer MEDICAID, SELFPAY ==
--- NOTE | 2021-11-22 07:45 | US_ITS ---
STUDY: ULTRASOUND OF THE FEMALE PELVIS - COMPLETE REASON FOR EXAM: Female, 26 years old. PAIN LMP: TECHNIQUE: TECHNICAL QUALITY: Adequate. COMPARISON: None. FINDINGS: The uterus is anteverted and is in a midline position. The uterus measures cm. Normal uterine cervix. The endometrium measures mm in thickness, and is . There is no demonstrated endometrial mass. There is no demonstrated myometrial mass. I.U.D. - The patient does not have an I.U.D. The right ovary is visualized. The right ovary measures cm. There is no right ovarian cyst or ovarian mass. There is no visualized right adnexal mass or complex lesion. There is normal arterial and normal venous vascularity. The left ovary is visualized. The left ovary measures cm. There is no left ovarian cyst or ovarian mass. There is no visualized left adnexal mass or complex lesion. There is normal arterial and normal venous vascularity. There is no fluid in the cul-de-sac. The pre void volume of the bladder was ml. The post void volume of the bladder was ml. Polycystic ovary disease: No. US/Pelvic (Non ) IMPRESSION: Normal female pelvis. Electronically Signed: Marcus Leigh MD at 8:57 EDT ,
--- NOTE | 2021-11-22 07:45 | US_ITS ---
STUDY: ULTRASOUND OF THE FEMALE PELVIS - COMPLETE REASON FOR EXAM: Female, 26 years old. Pelvic pain. LMP: 10/10/2021. TECHNIQUE: Transabdominal and Transvaginal TECHNICAL QUALITY: Adequate. COMPARISON: Comparison is made with prior examination dated 08/08/2021. FINDINGS: The uterus is anteverted and is in a midline position. The uterus measures 8.4 cm x 5.6 x 3.8 cm. There is a Nabothian cyst of the cervix. The endometrium measures 6.3 mm in thickness, and is hyperechoic. There is no demonstrated endometrial mass. There is no demonstrated myometrial mass. I.U.D. - The patient does not have an I.U.D. The right ovary is visualized. The right ovary measures 3.3 cm x 1.6 cm x 1.2 cm. There is no right ovarian cyst or ovarian mass. There is no visualized right adnexal mass or complex lesion. There is normal arterial and normal venous vascularity. The left ovary is visualized. The left ovary measures 2.4 cm x 2.3 cm x 1.6 cm. There is no left ovarian cyst or ovarian mass. There is no visualized left adnexal mass or complex lesion. There is normal arterial and normal venous vascularity. There is no fluid in the cul-de-sac. The pre void volume of the bladder was 300 ml. US/Transvaginal Non- IMPRESSION: Normal female pelvis. Electronically Signed: Marcus Leigh MD at 8:56 EDT ,
== END | disposition home or self-care (01) ==
LOC: OPUS 07:44
PROVIDERS: PCP Student in an Organized Health Care Education/Training Program; Visit Provider Nurse Practitioner Women's Health
DX: R10.2 Pelvic and perineal pain (principal)
CPT/HCPCS: 76830; 76856; 93976

== ENCOUNTER 2021-12-23 15:26 | Emergency (ER) | payer MEDICAID, SELFPAY ==
[2021-12-23 15:29] VITALS: BP 124/86; PULSE 82; RESP 14; TEMP 37.2; O2SAT 97; BMI 29.2
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
[2021-12-23 17:37] VITALS: PULSE 68; RESP 17; O2SAT 99
[2021-12-23] MEDS: Diphth,Pertuss(Acell),Tet Vac 0.5 ML Vial IM (19:04)
[2021-12-23] MEDS: Lidocaine 1% /Epi 1:100 (20ml) 20 ML Vial INFILT (19:05)
[2021-12-23] MEDS: Cephalexin 250 MG Capsule 500 MG PO (19:12)
[2021-12-23 19:16] VITALS: PULSE 68; RESP 17
== END 2021-12-23 19:40 | disposition home or self-care (01) ==
PROVIDERS: Emergency Provider Emergency Medicine; PCP Student in an Organized Health Care Education/Training Program; Visit Provider Emergency Medicine
DX: S51.812A Laceration without foreign body of left forearm, initial encounter (principal); X78.9XXA Intentional self-harm by unspecified sharp object, initial encounter; F43.0 Acute stress reaction; Z91.52 Personal history of nonsuicidal self-harm; F41.9 Anxiety disorder, unspecified; J45.909 Unspecified asthma, uncomplicated; K21.9 Gastro-esophageal reflux disease without esophagitis; K58.9 Irritable bowel syndrome, unspecified; Z79.899 Other long term (current) drug therapy; F32.A Depression, unspecified; Z23 Encounter for immunization
CPT/HCPCS: 12005; 90471; 90715; 99284

== ENCOUNTER 2021-12-27 15:11 | Inpatient (IN) | payer MEDICAID, SELFPAY ==
[2021-12-27] VITALS (14 sets, daily range): BP systolic 98–149; BP diastolic 63–102; PULSE 81–118; RESP 12–22; TEMP 2.5–36.9; O2SAT 92–100; BMI 24.0; BMI 25.8
--- NOTE | 2021-12-27 15:19 | EKG12_ITS ---
Test Reason : [facility] [place] Blood Pressure : / mmHG Vent. Rate : 096 BPM Atrial Rate : 096 BPM P-R Int : 142 ms QRS Dur : 082 ms QT Int : 372 ms P-R-T Axes : 087 077 061 degrees QTc Int : 469 ms Normal sinus rhythm Normal ECG Confirmed by DEL FREEMAN, ROLANDO ([id number]), managing editor KIMBERLY PLASCENCIA ([id number]) on 12/28/2021 1:18:36 PM Referred By: KASHMIR Confirmed By:ROLANDO MATHIS MD
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
[2021-12-27 16:04] LABS: Absolute Neutrophil Count 5.9 X10^3/uL (2.0-7.7); Basophil# 0.04 X10^3/uL; Basophil% 0.5 % (0-1); Eosinophil# 0.02 X10^3/uL; Eosinophils% 0.2 % (0-5); Hematocrit 39.3 % (37-47); Hemoglobin 13.4 g/dL (12.0-15.0); Lymphocyte % 19.5 % (19-41); Mean Corp Hgb Conc 34.1 g/dL (32-36); Mean Corpuscular Hgb 31.2 pg (27.0-32.0); Mean Corpuscular Volume 91.6 fL (81-99); Mean Platelet Vol. 11.1 fl (6.2-12.0); Monocyte# 0.67 X10^3/uL; Monocyte% 8.2 % (0-10); NRBC Flagged by Analyzer 0 % (0-5); Neutrophil # 5.86 X10^3/uL (2.7-7.7); Neutrophil % 71.2 % (47-70); Platelet Count 287 K/mm3 (150-450); RBC Distribution Width CV 12.2 % (11.6-14.6); RBC Distribution Width SD 40.8 fl (35.1-43.9); Red Blood Count 4.29 M/mm3 (4.2-5.4); White Blood Count 8.2 K/mm3 (4.4-11.0)
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
[2021-12-27 16:22] LABS: Anion Gap 11 (5-15); BUN 7 mg/dL (7-18); BUN/Creat Ratio 8.4 RATIO (10-20); Chloride 106 mmol/L (98-107); Creatinine, Serum 0.83 mg/dL (0.55-1.02); EST Glomerular Filtration Rate 87 mL/min (>60); Est Glom Filt Rate - Afr Amer 106 mL/min (>60); Estimated Creatinine Clearance 91.61 ml/min; Glucose 161 mg/dL (74-106); Potassium 4.2 mmol/L (3.5-5.1); Sodium Level 136 mmol/L (136-145)
[2021-12-27 16:26] LABS: Internal QC Validated? YES +Cl - CLEAR BKGD; Pregnancy, Serum, hCG Quali. NEGATIVE Negative
[2021-12-27 18:29] LABS: Acetaminophen (Tylenol) Level 399.7 ug/mL (10.0-30.0); Alcohol, Blood (Medical)-Serum < 3.0 mg/dL; Salicylate < 1.7 mg/dL (2.8-20.0)
--- NOTE | 2021-12-27 19:20 | HP.PCM.HOS_ITS ---
HPI - General General Date of Admission: 12/27/21 Date of Service: 12/27/21 Chief Complaint: tylenol overdose in suicidal attempt. HPI Narrative LEIDY WILCOX, is a 26 F who presents with significant history of multiple suicidal attempts who presents to the emergency department with Tylenol overdose in a suicidal attempt. Reportedly patient had intra-uterine demise in August 2021. Ever since she has been depressed. Four days before presentation patient was at the emergency department for self inflicted laceration to her left forearm. Also previously she made some self inflicted wounds to the same side of her forearm. On the day of presentation patient had a scheduled job orientation at [employer]. While in her car she packed and reportedly took more than 40 tablets of extra strength Tylenol. She may also have taking Imodium and Zofran as bottles of the above medications were found in her car. Indeed at the ED she admitted use of Zofran. After taking these medication she went to report herself to her upper caser. Reportedly her found vomitus in patient's car. [facility] Medical History Allergic rhinitis Anxiety Asthma Chronic cough Depression Eustachian tube dysfunction Gastric reflux History of IBS History of steroid therapy IBS (irritable bowel syndrome) Low-lying placenta in second trimester Non-smoker Posterior auricular lymphadenopathy Vestibular migraine Wears contact lenses Wears glasses Home Medications albuterol sulfate 90 mcg/actuation aerosol inhaler 1 puff inhalation Q4H PRN PRN Asthma 08/17/17 [History Last Taken 08/11/17] epinephrine 0.3 mg/0.3 mL injection, auto-injector 0.3 mg IM DAILY PRN Allergies 08/17/17 [History Last Taken Unknown] fexofenadine 180 mg tablet 180 mg PO DAILY Check with primary doctor 06/25/19 [History Last Taken Unknown] ascorbic acid (vitamin C) 500 mg tablet,extended release (Vitamin C ER) 500 mg PO DAILY Check with primary doctor 06/26/19 [History Last Taken Unknown] coenzyme [id number] E 100 mg-100 unit capsule 1 cap PO DAILY Check with primary doctor 06/26/19 [History Last Taken Unknown] pantoprazole 40 mg tablet,delayed release 40 mg PO BID Check with primary doctor 02/08/21 [History Last Taken 02/15/21 07:00] potassium chloride 10 mEq tablet,extended release 10 meq PO BID Check with primary doctor 02/08/21 [History Last Taken Unknown] ipratropium bromide 21 mcg (0.03 %) nasal spray 2 spray intranasal BID Check with primary doctor 03/11/21 [History Last Taken Unknown] pyridoxine (vitamin B6) 500 mg tablet 500 mg PO DAILY Check with primary doctor 04/05/21 [History Last Taken Unknown] fluticasone 250 mcg-salmeterol 50 mcg/dose blistr powdr for inhalation (Advair Diskus) 1 inh inhalation BID Check with primary doctor 08/03/21 [History Last Taken Unknown] tiotropium bromide 1.25 mcg/actuation mist for inhalation (Spiriva Respimat) 2 puff inhalation DAILY ASTHMA 08/03/21 [History Last Taken Unknown] cephalexin 500 mg capsule 500 mg PO TID #15 CAPSULES 12/23/21 [Rx Last Taken Unknown] fluoxetine 20 mg tablet 20 mg PO TID Check with primary doctor 12/27/21 [History Last Taken Unknown] Allergy/AdvReac Type Severity Reaction Status Date / Time COVID-19 vaccine, mRNA, Allergy Severe Anaphylaxis Verified 12/27/21 15:24 [id number], bee venom protein (honey bee) Allergy Anaphylaxis Verified 12/27/21 15:24 omalizumab [From Xolair] Allergy Anaphylaxis Verified 12/27/21 15:24 prochlorperazine edisylate Allergy Swelling Verified 12/27/21 15:24 [From Compazine] prochlorperazine maleate Allergy Swelling Verified 12/27/21 15:24 [From Compazine] Family History Brother Asthma Mother Hypertension Heart disease Father Depression Heart disease Hyperlipidemia Hypertension Surgical History Hx of colonoscopy Hx of dilation and curettage Social History household members: family current occupational status: unemployed pets and animals: Yes Smoking Status: Never smoker second hand exposure: No alcohol intake: never substance use type: does not use seatbelt use: always do you feel safe at home: Yes additional social history: trans male, - Humza REESE Review of Systems ROS Unobtainable: due to mental status Vital Signs Vital Signs Vital Signs: 12/27/21 15:15 12/27/21 17:05 12/27/21 18:15 Temperature 97.2 F L Temperature Source Oral Pulse Rate 118 H 100 99 Respiratory Rate 14 18 16 Blood Pressure 118/102 H 98/63 106/65 Blood Pressure Mean 107 74 78 Pulse Ox 99 96 98 Oxygen Delivery Method Room Air Room Air Room Air 12/27/21 18:52 12/27/21 19:00 Temperature Temperature Source Pulse Rate 112 H 102 H Respiratory Rate 22 H 18 Blood Pressure 126/76 H 114/73 Blood Pressure Mean 92 86 Pulse Ox 98 93 Oxygen Delivery Method Room Air Room Air Weight Weight: 65.7 kg Body Mass Index (BMI) 24.0 Physical Exam Narrative Physical exam: General: Well-nourished, well-developed. Head: Normocephalic, atraumatic, no tenderness Eyes: Patient barely keeps the eye obtained. Patient with nystagmus. ENT, no trauma, moist mucous membranes, no rhinorrhea Neck: Nontender, full range of motion, no spinal tenderness, deformities, step- off CVS: Regular rate and rhythm. S1-S2 present. No murmur, gallop or rub. Respiratory : clear to auscultation bilaterally, chest wall nontender, no wheezing Abdomen: Soft, nontender, nondistended, normal bowel sounds, no masses : Deferred Back: Nontender, no CVA tenderness, no midline spinal tenderness, deformities, step-offs Extremities: Stitches and cuts rand on left ventral forearm. Skin: Normal color, no trauma, abrasions Neuro: Hypoalert. Mydriatic pupils that react to light. Psychiatry: Depressed. Results Lab / Micro Data Result Diagrams: 12/27/21 15:45 12/27/21 15:45 Labs: Laboratory Results - last 24 hr 12/27/21 15:45: WBC 8.2, RBC 4.29, Hgb 13.4, Hct 39.3, MCV 91.6, MCH 31.2, MCHC 34.1, RDW Std Deviation 40.8, RDW Coeff of Win 12.2, Plt Count 287, MPV 11.1, Immature Gran % (Auto) 0.400, Neut % (Auto) 71.2 H, Lymph % (Auto) 19.5, [place] % (Auto) 8.2, Eos % (Auto) 0.2, Baso % (Auto) 0.5, Absolute Neuts (auto) 5.9, Absolute Lymphs (auto) 1.60, Nucleated RBC % 0 12/27/21 15:45: Sodium 136, Potassium 4.2, Chloride 106, Carbon Dioxide 19.0 L, Anion Gap 11, BUN 7, Creatinine 0.83, Estim Creat Clear Calc 91.61, Est GFR (MDRD) Af Amer 106, Est GFR (MDRD) Non-Af 87, BUN/Creatinine Ratio 8.4 L, Glucose 161 H, Calcium 9.0 12/27/21 15:45: Salicylates < 1.7 L, Acetaminophen 399.7 H*, Ethyl Alcohol < 3.0 12/27/21 15:45: Serum , Qual NEGATIVE Micro: Microbiology 12/27/21 15:45 Nasal Secretion SARS-CoV-2 Antigen (Rapid) - Final Assessment & Plan Assessment/Plan (1) Suicide attempt: (2) Tylenol overdose: (3) Asthma: QUALIFIERS: Asthma complication type: uncomplicated Asthma persistence: persistent Asthma severity: severe Qualified Code(s): J45.50 - Severe persistent asthma, uncomplicated PLAN: Plan Tylenol overdose in suicide attempt/toxic encephalopathy. Tylenol level on presentation was 399.7. Per Per [facility] nomogram patient meets criteria to be started on acetylcysteine. Reportedly patient might of taking a Tylenol around 12:30 PM to 1:30 PM on 12/27/2021. Acetylcysteine IV ordered at emergency department and continued. Trend Tylenol level. Sitter at bedside at all times. CBC reviewed, normal, except mildly elevated neutrophils, chronic. CMP is pending, follow. Trend CMP. Trend INR. Keep patient n.p.o. as she is encephalopathic and with nausea and vomiting. Admit intensive care unit. Supervisor Gluing consult. Elongated QTC QTC of 469. And reportedly patient took Zofran. Allergy to Compazine. IV fluids ordered. Pepcid IV ordered. Laceration to left forearm. Does not look infected. Was at the ED on 12/23/2021 and was discharged home on 15 tablets of Keflex. We will keep patient n.p.o. secondary to encephalopathy. Ancef x2 doses ordered for completion of therapy. Asthma Stable As needed breathing treatment continued. DVT prophylaxis Low risk. Encourage ambulation when she is safe. Charges/Coding Visit Charges Inpatient E&M: 35677 Init Hosp L3
--- NOTE | 2021-12-27 20:19 | NURSING ---
CALLED REPORT TO LORENA WELLS IN ICU AT 2015
[2021-12-27 20:31] LABS: Amphetamine Urine VISTA NEGATIVE (<1000 ng/mL); Barbiturate Urine VISTA NEGATIVE (< 200 ng/mL); Benzodiazepine Urine VISTA POSITIVE (< 200 ng/mL); Cocaine Urine VISTA NEGATIVE (< 300 ng/mL); Ecstacy Urine VISTA NEGATIVE (< 500 ng/mL); Methadone Urine VISTA NEGATIVE (< 300 ng/mL); PCP Urine VISTA NEGATIVE (< 25 ng/mL); THC Urine VISTA NEGATIVE (< 50 ng/mL); Vista UDS pH Range 5
[2021-12-27 20:53] LABS: AST(SGOT) 21 U/L (15-37); Alanine Aminotransfer ALT/SGPT 34 U/L (13-56); Albumin, Serum 3.9 g/dL (3.2-5.0); Alkaline Phosphatase 116 U/L (45-117); Bilirubin, Direct 0.12 mg/dL (0.00-0.30); Globulin 3.2 g/dL (2.2-4.2); Protein, Total 7.1 g/dL (6.4-8.2)
[2021-12-27 21:32] LABS: Magnesium 1.7 mg/dL (1.6-2.6)
[2021-12-27] MEDS: Famotidine 200 MG/20 ML MDV 20 MG in 0.9% Normal Saline (Pres. free 8 ML 300 MG IV (22:32)
[2021-12-28] VITALS (32 sets, daily range): BP systolic 86–135; BP diastolic 57–96; PULSE 68–146; RESP 13–20; TEMP 36.1–37; O2SAT 92–100
[2021-12-28] MEDS: Lactated Ringers 1,000 ML 100 ML IV (01:51)
[2021-12-28] MEDS: 0.9% Saline Lock 10 ML Syringe IV ×4 (02:00→22:49)
--- NOTE | 2021-12-28 02:45 | NURSING ---
RN contacted pharmacy in regards to re timing pts cefazolin. Per order medication was to be given Q8hrs, when asked for it to be retimed the pharmacist told RN that it doesn't need to be retimed due to the medication only needing to be given 4 hrs apart. note completed by: Nhung Sorensen RN.
[2021-12-28 02:50] LABS: Absolute Neutrophil Count 18.7 X10^3/uL (2.0-7.7); Basophil# 0.02 X10^3/uL; Basophil% 0.1 % (0-1); Hematocrit 40.1 % (37-47); Hemoglobin 13.4 g/dL (12.0-15.0); Lymphocyte % 4.7 % (19-41); Mean Corp Hgb Conc 33.4 g/dL (32-36); Mean Corpuscular Hgb 31.1 pg (27.0-32.0); Monocyte# 1.26 X10^3/uL; NRBC Flagged by Analyzer 0 % (0-5); Neutrophil # 18.71 X10^3/uL (2.7-7.7); Neutrophil % 88.8 % (47-70); Platelet Count 288 K/mm3 (150-450); RBC Distribution Width CV 12.1 % (11.6-14.6); RBC Distribution Width SD 41.2 fl (35.1-43.9); Red Blood Count 4.31 M/mm3 (4.2-5.4); White Blood Count 21.1 K/mm3 (4.4-11.0)
[2021-12-28 02:59] LABS: International Normalized Ratio 1.2
[2021-12-28 03:07] LABS: AST(SGOT) 27 U/L (15-37); Alanine Aminotransfer ALT/SGPT 48 U/L (13-56); Albumin, Serum 3.6 g/dL (3.2-5.0); Alkaline Phosphatase 105 U/L (45-117); Anion Gap 12 (5-15); BUN 6 mg/dL (7-18); BUN/Creat Ratio 8.2 RATIO (10-20); Calcium,Total 8.9 mg/dL (8.5-10.1); Chloride 103 mmol/L (98-107); Creatinine, Serum 0.73 mg/dL (0.55-1.02); EST Glomerular Filtration Rate 101 mL/min (>60); Est Glom Filt Rate - Afr Amer 123 mL/min (>60); Estimated Creatinine Clearance 99.96 ml/min; Globulin 3.7 g/dL (2.2-4.2); Glucose 174 mg/dL (74-106); Potassium 3.2 mmol/L (3.5-5.1); Protein, Total 7.3 g/dL (6.4-8.2); Sodium Level 137 mmol/L (136-145)
[2021-12-28] MEDS: Potassium Chloride 40 MEQ in 0.9% Normal Saline 1,000 ML 100 MEQ IV (05:14)
--- NOTE | 2021-12-28 05:55 | EKG12_ITS ---
Test Reason : AM EKG Blood Pressure : / mmHG Vent. Rate : 074 BPM Atrial Rate : 074 BPM P-R Int : 150 ms QRS Dur : 088 ms QT Int : 364 ms P-R-T Axes : 079 064 063 degrees QTc Int : 404 ms Normal sinus rhythm Nonspecific T wave abnormality Abnormal ECG Confirmed by DEL FREEMAN, ROLANDO ([id number]), editor at large KIMBERLY PLASCENCIA ([id number]) on 12/29/2021 9:13:19 AM Referred By: STEF Confirmed By:ROLANDO MATHIS MD
--- NOTE | 2021-12-28 07:38 | CON.PCM.CC_ITS ---
Assessment & Plan Assessment/Plan (1) Tylenol overdose: (2) Suicide attempt: (3) Depression: QUALIFIERS: Depression Type: major depressive disorder Major depression recurrence: recurrent Active/Remission status: in partial remission Qualified Code(s): F33.41 - Major depressive disorder, recurrent, in partial remission PLAN: Plan RECOMMENDATIONS: 1. Continue NAC therapy. Possible need for another 18 hours 2. Check Tylenol levels intermittently until normal 3. Reinitiate triple therapy substitution for asthma 4. Crisis evaluation once hemodynamically stable 5. Electrolyte repletion as necessary 6. Seizure precautions IMPRESSIONS: 1. Intentional overdose with multiple medications Patient reportedly ingested Tylenol, Prozac, Wellbutrin and Zofran of unclear quantities. Patient with a significant Tylenol level and was initiated on NAC therapy. Patient does not appear to have endorgan damage at this time. Patient will need seizure precautions given Wellbutrin. We will continue to check Tylenol levels until normal. Cannot exclude the need for another 18 hours of NAC therapy given the high level. Patient does have a prolonged QTC of 469 and this may be secondary to Zofran. Other stigmata of medication overdose do not appear to be apparent at this time. 2. Severe depression secondary to miscarriage Patient with large laceration approximately a week ago. Patient does have a counselor, but likely needs evaluation by crisis once hemodynamically stable. Potential restart baseline psychiatric medications. 3. Severe persistent asthma Patient does not appear to be in acute exacerbation at this time from respiratory status. However, patient has had significant exacerbations in the past. We will reinitiate therapeutic substitution for baseline triple therapy to avoid complications. HPI Consult Data Date of Consult: 12/28/21 HPI Narrative Reason for Consultation: Intentional overdose HPI Narrative: LEIDY WILCOX is a 26 F, with past medical history listed below and well- known to me from the outpatient office, who presents to [facility] on 12/27/2021 secondary to an intentional overdose. Patient reportedly had a miscarriage back in August after being 6 months and has been suffering with depression and anxiety since that time. Patient reportedly had a suicidal gesture approximately a week ago when she had a laceration to her left wrist that required sutures. Patient was supposed to be following up with the counseling center, but reportedly took a handful of Tylenol, Prozac, Wellbutrin and Zofran around noon to 1:00. Patient had presented to the emergency department crying, holding a baby toy and pacifier stating that she just wanted to be with her baby. In the ER, patient was tachycardic at 118 bpm, but saturating well on room air. Patient was initially hypertensive, but improved through the ER course. No fevers have been noted. Laboratory work-up showed a normal CBC and chemistries except for a bicarbonate of 19 and a glucose of 161. Patient salicylate and alcohol level were negative, but Tylenol level was almost 400. Liver function studies were within normal limits and patient had a negative test. Given Tylenol level and presume 4 hours after ingestion, patient was initiated on NAC therapy and admitted to the intensive care unit for further evaluation. Since being in the intensive care unit, patient has become much more appropriate. Patient is somewhat remorseful as far as her other children. Patient is very poonam that she took the medications in an attempt to hurt herself. Patient does have a history of cutting in the past. Patient reports that medically she has been relatively stable. Patient has not reported any worsening in her asthma control. Patient is not reporting any fevers, chills, nausea or vomiting. No lower extremity edema or palpitations have been reported. Patient has not had any dysuria. Review of systems otherwise negative from a constitutional, HEENT, respiratory, cardiovascular, GI, genitourinary, musculoskeletal, skin, neurologic, psychiatric and hematologic system unless stated above. [facility] Medical History Allergic rhinitis Anxiety Asthma Chronic cough Depression Eustachian tube dysfunction Gastric reflux History of IBS History of steroid therapy IBS (irritable bowel syndrome) Low-lying placenta in second trimester Non-smoker Posterior auricular lymphadenopathy Vestibular migraine Wears contact lenses Wears glasses Home Medications albuterol sulfate 90 mcg/actuation aerosol inhaler 1 puff inhalation Q4H PRN PRN Asthma 08/17/17 [History Last Taken 08/11/17] epinephrine 0.3 mg/0.3 mL injection, auto-injector 0.3 mg IM DAILY PRN Allergies 08/17/17 [History Last Taken Unknown] fexofenadine 180 mg tablet 180 mg PO DAILY Check with primary doctor 06/25/19 [History Last Taken Unknown] ascorbic acid (vitamin C) 500 mg tablet,extended release (Vitamin C ER) 500 mg PO DAILY Check with primary doctor 06/26/19 [History Last Taken Unknown] coenzyme [id number] E 100 mg-100 unit capsule 1 cap PO DAILY Check with primary doctor 06/26/19 [History Last Taken Unknown] pantoprazole 40 mg tablet,delayed release 40 mg PO BID Check with primary doctor 02/08/21 [History Last Taken 02/15/21 07:00] potassium chloride 10 mEq tablet,extended release 10 meq PO BID Check with primary doctor 02/08/21 [History Last Taken Unknown] ipratropium bromide 21 mcg (0.03 %) nasal spray 2 spray intranasal BID Check with primary doctor 03/11/21 [History Last Taken Unknown] pyridoxine (vitamin B6) 500 mg tablet 500 mg PO DAILY Check with primary doctor 04/05/21 [History Last Taken Unknown] fluticasone 250 mcg-salmeterol 50 mcg/dose blistr powdr for inhalation (Advair Diskus) 1 inh inhalation BID Check with primary doctor 08/03/21 [History Last Taken Unknown] tiotropium bromide 1.25 mcg/actuation mist for inhalation (Spiriva Respimat) 2 puff inhalation DAILY ASTHMA 08/03/21 [History Last Taken Unknown] cephalexin 500 mg capsule 500 mg PO TID #15 CAPSULES 12/23/21 [Rx Last Taken Unknown] fluoxetine 20 mg tablet 20 mg PO TID Check with primary doctor 12/27/21 [History Last Taken Unknown] Allergy/AdvReac Type Severity Reaction Status Date / Time COVID-19 vaccine, mRNA, Allergy Severe Anaphylaxis Verified 12/27/21 15:24 [id number], bee venom protein (honey bee) Allergy Anaphylaxis Verified 12/27/21 15:24 omalizumab [From Xolair] Allergy Anaphylaxis Verified 12/27/21 15:24 prochlorperazine edisylate Allergy Swelling Verified 12/27/21 15:24 [From Compazine] prochlorperazine maleate Allergy Swelling Verified 12/27/21 15:24 [From Compazine] Family History Brother Asthma Mother Hypertension Heart disease Father Depression Heart disease Hyperlipidemia Hypertension Surgical History Hx of colonoscopy Hx of dilation and curettage Social History household members: family current occupational status: unemployed pets and animals: Yes Smoking Status: Never smoker second hand exposure: No alcohol intake: never substance use type: does not use seatbelt use: always do you feel safe at home: Yes additional social history: trans male, - Humza ROS ROS Narrative See HPI Physical Exam Const oriented x3 and no apparent distress Constitutional Narrative: Makes eye contact. General Appearance: frail; Negative for in distress HEENT normocephalic and head/scalp atraumatic; Negative for moist oral mucous membranes Eyes PERRL, EOMs intact bilaterally and conjunctivae normal Neck full ROM Lymph Lymphatic: no lymphadenopathy noted Resp normal respiratory effort and no use of accessory muscles Effort and Inspection: able to speak in complete sentences Auscultation: clear to auscultation bilaterally; Negative for rales, rhonchi or wheezes Cardio regular rate, regular rhythm, S1 normal heart sound, S2 normal heart sound, no murmurs, no rub, no gallops and no JVD GI normal to inspection, nondistended, normoactive bowel sounds Narrative: Mild CVA tenderness noted Extremity no clubbing, cyanosis or edema Skin Skin Narrative: Significant laceration noted on the left forearm along with superficial scrapes. Sutures appear to be clean, dry and intact Neuro oriented x3, CN's II-XII intact bilaterally, moves all extremities and no focal motor deficits Psych Mood & Affect: flat affect Medical Records Data Attestation: I reviewed the patient's medical records Medical records narrative: Patient with severe persistent asthma at baseline on triple therapy. Patient does have a history of anaphylaxis in the past to multiple antigens. No history of liver dysfunction or hepatitis noted Lab / Micro Data Attestation: I reviewed the patient's lab results. Result Diagrams: 12/28/21 02:38 12/28/21 02:38 Labs: Laboratory Results - last 24 hr 12/27/21 15:45: WBC 8.2, RBC 4.29, Hgb 13.4, Hct 39.3, MCV 91.6, MCH 31.2, MCHC 34.1, RDW Std Deviation 40.8, RDW Coeff of Win 12.2, Plt Count 287, MPV 11.1, Immature Gran % (Auto) 0.400, Neut % (Auto) 71.2 H, Lymph % (Auto) 19.5, [place] % (Auto) 8.2, Eos % (Auto) 0.2, Baso % (Auto) 0.5, Absolute Neuts (auto) 5.9, Absolute Lymphs (auto) 1.60, Nucleated RBC % 0 12/27/21 15:45: Sodium 136, Potassium 4.2, Chloride 106, Carbon Dioxide 19.0 L, Anion Gap 11, BUN 7, Creatinine 0.83, Estim Creat Clear Calc 91.61, Est GFR (MDRD) Af Amer 106, Est GFR (MDRD) Non-Af 87, BUN/Creatinine Ratio 8.4 L, Glucose 161 H, Calcium 9.0 12/27/21 15:45: Salicylates < 1.7 L, Acetaminophen 399.7 H*, Ethyl Alcohol < 3.0 12/27/21 15:45: Serum , Qual NEGATIVE 12/27/21 15:45: Total Bilirubin 0.30, Direct Bilirubin 0.12, AST 21, ALT 34, Alkaline Phosphatase 116, Total Protein 7.1, Albumin 3.9, Globulin 3.2 12/27/21 15:45: Magnesium 1.7 12/27/21 19:30: Acetaminophen 396.0 H* 12/27/21 19:55: Urine Opiates Screen NEGATIVE, Urine Methadone Screen NEGATIVE, Ur Barbiturates Screen NEGATIVE, Ur Phencyclidine Scrn NEGATIVE, Ur Amphetamines Screen NEGATIVE, MDMA (Ecstasy) Screen NEGATIVE, U Benzodiazepines Scrn POSITIVE H, Urine Cocaine Screen NEGATIVE, U Cannabinoids Screen NEGATIVE, Ur Drug Screen Comment 12/28/21 02:38: WBC 21.1 H, RBC 4.31, Hgb 13.4, Hct 40.1, MCV 93.0, MCH 31.1, MCHC 33.4, RDW Std Deviation 41.2, RDW Coeff of Win 12.1, Plt Count 288, MPV 11.0, Immature Gran % (Auto) 0.400, Neut % (Auto) 88.8 H, Lymph % (Auto) 4.7 L, [place] % (Auto) 6.0, Eos % (Auto) 0.0, Baso % (Auto) 0.1, Absolute Neuts (auto) 18.7 H, Absolute Lymphs (auto) 1.00, Nucleated RBC % 0 12/28/21 02:38: PT 15.0 H, INR 1.2 12/28/21 02:38: Sodium 137, Potassium 3.2 L, Chloride 103, Carbon Dioxide 22.0, Anion Gap 12, BUN 6 L, Creatinine 0.73, Estim Creat Clear Calc 99.96, Est GFR (MDRD) Af Amer 123, Est GFR (MDRD) Non-Af 101, BUN/Creatinine Ratio 8.2 L, Glucose 174 H, Calcium 8.9, Total Bilirubin 0.40, AST 27, ALT 48, Alkaline Phosphatase 105, Total Protein 7.3, Albumin 3.6, Globulin 3.7, Albumin/Globulin Ratio 1.0 Micro: Microbiology 12/27/21 15:45 Nasal Secretion SARS-CoV-2 Antigen (Rapid) - Final Rhythm Strip Rhythm Strip: Sinus Rhythm Rate: 68 Ectopy: None Charges/Coding Visit Charges Inpatient E&M: 66678 Init Hosp L2
[2021-12-28] MEDS: Ipratropium/Albuterol Sulfate 3 ML AMPUL.NEB INHALATION ×3 (09:46→18:52)
[2021-12-28] MEDS: Budesonide Respules 0.5 MG/2 ML AMPUL.NEB. INHALATION ×2 (09:46→18:52)
[2021-12-28] MEDS: Famotidine 200 MG/20 ML MDV 20 MG in 0.9% Normal Saline (Pres. free 8 ML 300 MG IV ×2 (09:57→22:48)
[2021-12-28 10:03] LABS: Acetaminophen (Tylenol) Level 143.4 ug/mL (10.0-30.0)
--- NOTE | 2021-12-28 10:22 | CASEMGMT ---
Social Work SW attended ICU rounds. Pt admitted with overdose. Per RN, Pt admitting to taking Tylenol, prozac, wellbutrin and zofran. SW met with pt after rounds. Pt states that after she took the pills she called Maricel, her manager legal at [facility]. Maricel in turn called 911 and pt was brought to the ED via squad. Pt states she also has a counselor at [facility] named Raffi and she has been working closely with Maricel and Raffi. Pt does have 2 children age 7 and 4. Pt states children are being cared for by her Humza or his mother. Pt states children are in a safe situation. SW updated pt that when medically cleared, crisis will be contacted and see pt for mental health evaluation. Pt made aware that SW will remain available if needs arise. Plan: Crisis referral will be made when pt is medically cleared. ARUN Bradshaw
[2021-12-28] MEDS: Hydrocortisone 2.5% Crm 1 APPLIC TOPICAL (11:51)
[2021-12-28] MEDS: KCL 40mEq in 0.9% NS 40 MEQ/1,000 ML IV.SOLN 100 MEQ IV (15:19)
--- NOTE | 2021-12-28 18:57 | PN.HOSP_ITS ---
Subjective Subjective Patient was seen and examined today, I discussed her medical care with the stab setter and driller today (Dr. Braga), at the time of this dictation, I am awaiting a repeat Tylenol level on the patient. Patient will need to be seen by crisis, it is my opinion that patient is at high risk for further suicide attempts. Patient was complaining of itching where her left arm sutures are in place, I gave an order for Benadryl cream and I asked nursing to wrap the area with Tacho wrap so that the patient would not pull out her sutures. Patient did not appear depressed at this examiner today, she answers questions appropriately, there obvious old cut rand on the patient's arms, she states she has been cutting herself since she was 10 years old. Objective Data Objective Data Vital Signs: Vital Signs Temp Pulse Resp BP Pulse Ox O2 Del Method 97.5 F L 85 18 118/78 96 Room Air 12/28/21 16:50 12/28/21 18:00 12/28/21 17:00 12/28/21 18:00 12/28/21 18:00 12/28/21 18:00 Oxygen Delivery Method Room Air Weight: 68.674 kg Body Mass Index (BMI) 25.8 Intake & Output: Intake and Output for Last 24 Hours 12/26/21 12/27/21 12/28/21 23:59 23:59 23:59 Intake Total 260 / 260 2425.12 / 2425.12 Output Total 0 / 0 700 / 700 Balance 260 / 260 1725.12 / 1725.12 Lab / Micro Data Result Diagrams: 12/29/21 06:25 12/29/21 06:25 Labs: Laboratory Results - last 24 hr 12/27/21 15:45: Total Bilirubin 0.30, Direct Bilirubin 0.12, AST 21, ALT 34, Alkaline Phosphatase 116, Total Protein 7.1, Albumin 3.9, Globulin 3.2 12/27/21 15:45: Magnesium 1.7 12/27/21 19:30: Acetaminophen 396.0 H* 12/27/21 19:55: Urine Opiates Screen NEGATIVE, Urine Methadone Screen NEGATIVE, Ur Barbiturates Screen NEGATIVE, Ur Phencyclidine Scrn NEGATIVE, Ur Amphetamines Screen NEGATIVE, MDMA (Ecstasy) Screen NEGATIVE, U Benzodiazepines Scrn POSITIVE H, Urine Cocaine Screen NEGATIVE, U Cannabinoids Screen NEGATIVE, Ur Drug Screen Comment 12/28/21 02:38: Acetaminophen 143.4 H* 12/28/21 02:38: WBC 21.1 H, RBC 4.31, Hgb 13.4, Hct 40.1, MCV 93.0, MCH 31.1, MCHC 33.4, RDW Std Deviation 41.2, RDW Coeff of Win 12.1, Plt Count 288, MPV 11.0, Immature Gran % (Auto) 0.400, Neut % (Auto) 88.8 H, Lymph % (Auto) 4.7 L, [place] % (Auto) 6.0, Eos % (Auto) 0.0, Baso % (Auto) 0.1, Absolute Neuts (auto) 1 8.7 H, Absolute Lymphs (auto) 1.00, Nucleated RBC % 0 12/28/21 02:38: PT 15.0 H, INR 1.2 12/28/21 02:38: Sodium 137, Potassium 3.2 L, Chloride 103, Carbon Dioxide 22.0, Anion Gap 12, BUN 6 L, Creatinine 0.73, Estim Creat Clear Calc 99.96, Est GFR (MDRD) Af Amer 123, Est GFR (MDRD) Non-Af 101, BUN/Creatinine Ratio 8.2 L, Glucose 174 H, Calcium 8.9, Total Bilirubin 0.40, AST 27, ALT 48, Alkaline Phosphatase 105, Total Protein 7.3, Albumin 3.6, Globulin 3.7, Albumin/Globulin Ratio 1.0 Micro: Microbiology 12/27/21 15:45 Nasal Secretion SARS-CoV-2 Antigen (Rapid) - Final Rhythm Strip Rhythm Strip: Sinus Rhythm Rate: 68 Ectopy: None Physical Exam Const alert, oriented x3, no apparent distress and well nourished General Appearance: cooperative, well kempt and well developed Orientation / Consciousness: awake, oriented to person, oriented to place and oriented to time HEENT normocephalic, head/scalp atraumatic and moist oral mucous membranes Eyes PERRL, EOMs intact bilaterally and conjunctivae normal Neck supple, no JVD, thyroid normal and no carotid bruits General: trachea midline Resp normal respiratory effort, no retractions, no use of accessory muscles and clear to auscultation bilaterally Auscultation: Negative for rales, rhonchi or wheezes Cardio regular rate, regular rhythm, S1 normal heart sound, S2 normal heart sound, no murmurs, no rub and no gallops GI normal to inspection, nondistended, normoactive bowel sounds, soft to palpation, non-tender and non-distended Extremity no clubbing, cyanosis or edema Skin Skin Narrative: Patient has a large healing laceration of her left forearm on the ventral aspect of the forearm, interrupted sutures are in place, there does not appear to be any drainage from the area. There is evidence of healed superficial lacerations over the patient's arms bilaterally. General Skin Exam: no breakdown Neuro oriented x3, CN's II-XII intact bilaterally, no focal motor deficits and no sensory deficits noted Sensorium / Orientation: awake and alert Speech: speech normal Psych affect normal Assessment & Plan Assessment/Plan (1) Suicide attempt: PLAN: Plan 1. Suicide attempt with overdose of Tylenol-patient is receiving N- acetylcysteine, Tylenol levels are being monitored, patient will be seen by crisis when she is medically stable. #2 asthma-this is stable at this time, she is on budesonide aerosols #3 chronic depression-patient's antidepressant is being held at this time, she will be evaluated by crisis intervention when she is medically stable. Charges/Coding Visit Charges Inpatient E&M: 79420 Subs Hosp L2
[2021-12-28] MEDS: LORazepam 2 MG/ML Syringe 1 MG IV (20:14)
--- NOTE | 2021-12-28 21:01 | NURSING ---
19:30 Upon assessment Pt was attempting to pull out her sutures from her left arm wound, RN attempted to redirect pt and pt was persistent in continuing to pull at the wound and became agitated with RN and sitter at bedside, RN notified [facility] HEAT TREATING FURNACE TENDER, Non violent restraints ordered and applied, See Mar for orders. RN was unable to obtain a 1900 blood pressure do to pts level of agitation. Note completed by: Nhung Sorensen RN.
[2021-12-28 22:47] LABS: Acetaminophen (Tylenol) Level 8.7 ug/mL (10.0-30.0)
[2021-12-29] VITALS (17 sets, daily range): BP systolic 106–130; BP diastolic 59–89; PULSE 86–164; RESP 14–33; TEMP 36–36.8; O2SAT 92–99
[2021-12-29] MEDS: Albuterol 2.5 MG/3 ML VIAL.NEB. INHALATION (04:42)
[2021-12-29 06:45] LABS: Absolute Lymphocyte Count 1.06 X10^3/uL (0.83-4.51); Absolute Neutrophil Count 9.7 X10^3/uL (2.0-7.7); Basophil# 0.03 X10^3/uL; Basophil% 0.3 % (0-1); Eosinophil# 0.04 X10^3/uL; Eosinophils% 0.3 % (0-5); Hematocrit 37.2 % (37-47); Hemoglobin 12.6 g/dL (12.0-15.0); Lymphocyte # 1.06 X10^3/ul (0.83-4.51); Lymphocyte % 9.2 % (19-41); Mean Corp Hgb Conc 33.9 g/dL (32-36); Mean Corpuscular Hgb 31.3 pg (27.0-32.0); Mean Corpuscular Volume 92.5 fL (81-99); Mean Platelet Vol. 10.8 fl (6.2-12.0); Monocyte# 0.65 X10^3/uL; Monocyte% 5.7 % (0-10); NRBC Flagged by Analyzer 0 % (0-5); Neutrophil # 9.66 X10^3/uL (2.7-7.7); Platelet Count 236 K/mm3 (150-450); RBC Distribution Width CV 12.6 % (11.6-14.6); RBC Distribution Width SD 42.5 fl (35.1-43.9); Red Blood Count 4.02 M/mm3 (4.2-5.4); White Blood Count 11.5 K/mm3 (4.4-11.0)
[2021-12-29 07:04] LABS: ALB/GLOB Ratio 0.9 RATIO (0.9-2.4); AST(SGOT) 16 U/L (15-37); Alanine Aminotransfer ALT/SGPT 41 U/L (13-56); Albumin, Serum 3.2 g/dL (3.2-5.0); Alkaline Phosphatase 100 U/L (45-117); Anion Gap 8 (5-15); BUN 2 mg/dL (7-18); BUN/Creat Ratio 2.9 RATIO (10-20); Calcium,Total 8.7 mg/dL (8.5-10.1); Chloride 108 mmol/L (98-107); Creatinine, Serum 0.68 mg/dL (0.55-1.02); EST Glomerular Filtration Rate 109 mL/min (>60); Est Glom Filt Rate - Afr Amer 132 mL/min (>60); Estimated Creatinine Clearance 107.31 ml/min; Globulin 3.6 g/dL (2.2-4.2); Glucose 135 mg/dL (74-106); Protein, Total 6.8 g/dL (6.4-8.2); Sodium Level 142 mmol/L (136-145)
[2021-12-29] MEDS: Ipratropium/Albuterol Sulfate 3 ML AMPUL.NEB INHALATION ×2 (07:25→19:14)
[2021-12-29] MEDS: Budesonide Respules 0.5 MG/2 ML AMPUL.NEB. INHALATION (07:25)
[2021-12-29] MEDS: Ipratropium 0.5 MG/2.5 ML SOLUTION INHALATION (07:52)
[2021-12-29 08:45] LABS: International Normalized Ratio 1.3; Prothrombin Time (Protime)PT. 16.1 SECONDS (11.7-14.9)
--- NOTE | 2021-12-29 10:49 | CASEMGMT ---
Social Work SW was informed pt is medically cleared for crisis eval. SW faxed clinical documentation to crisis team and called [facility] to inform that fax was sent. SW included contact information on fax cover sheet and requested crisis schedule time to evaluate pt. Plan: Await crisis evaluation. ARUN Daniels
[2021-12-29] MEDS: Potassium Chloride Oral Tablet 20 MEQ 40 MEQ PO (11:23)
--- NOTE | 2021-12-29 11:45 | CASEMGMT ---
Social Work SW called crisis to confirm fax had been received and Crisis could come evaluate pt. SW spoke to Nohemi at [facility]. Nohemi inquired about pt mental status and wanted to determine if phone assessment would work for pt. SW encouraged Nohemi to evaluate pt in person, if possible. Nohemi asked for ICU phone number to contact nurse in charge to discuss. SW provided the contact number. SW also informed Nohemi pt placement for stabilization and treatment will need access to a breast pump as pt is still . Nohemi voiced understanding. Nohemi to review faxed information and contact this SW later this day to update on evaluation status. Plan: Await crisis ARUN Farris
--- NOTE | 2021-12-29 12:39 | NURSING ---
Pt on the phone with crisis at this time for assessment.
[2021-12-29] MEDS: Hydrocortisone 2.5% Crm 1 APPLIC TOPICAL (16:00)
--- NOTE | 2021-12-29 16:20 | PN.HOSP_ITS ---
Subjective Subjective Patient was seen and examined today, I talked briefly with crisis by telephone today about her care. Patient's potassium was low today, she received potassium replacement, she is not having any medical issues related to her low potassium. Patient's acetaminophen level is not reportable today, her liver enzymes were all within normal range. Objective Data Objective Data Vital Signs: Vital Signs Temp Pulse Resp BP Pulse Ox O2 Del Method O2 Flow Rate 98.2 F 115 H 18 114/76 98 Room Air 2 12/29/21 11:00 12/29/21 11:00 12/29/21 11:00 12/29/21 11:00 12/29/21 11:00 12/29/21 11:00 12/29/21 04:42 Oxygen Flow Rate (L/min) 2 Oxygen Delivery Method Room Air Weight: 70.7 kg Body Mass Index (BMI) 25.8 Intake & Output: Intake and Output for Last 24 Hours 12/27/21 12/28/21 12/29/21 23:59 23:59 23:59 Intake Total 260 / 260 4221.58 / 4221.58 1218.75 / 1218.75 Output Total 0 / 0 700 / 700 400 / 400 Balance 260 / 260 3521.58 / 3521.58 818.75 / 818.75 Lab / Micro Data Result Diagrams: 12/29/21 06:25 12/29/21 06:25 Labs: Laboratory Results - last 24 hr 12/28/21 15:55: Acetaminophen 8.7 L 12/29/21 06:25: PT 16.1 H, INR 1.3 12/29/21 06:25: Acetaminophen Not Reportable 12/29/21 06:25: WBC 11.5 H, RBC 4.02 L, Hgb 12.6, Hct 37.2, MCV 92.5, MCH 31.3, MCHC 33.9, RDW Std Deviation 42.5, RDW Coeff of Win 12.6, Plt Count 236, MPV 10.8, Immature Gran % (Auto) 0.500, Neut % (Auto) 84.0 H, Lymph % (Auto) 9.2 L, [place] % (Auto) 5.7, Eos % (Auto) 0.3, Baso % (Auto) 0.3, Absolute Neuts (auto) 9.7 H, Absolute Lymphs (auto) 1.06, Nucleated RBC % 0 12/29/21 06:25: Sodium 142, Potassium 3.0 L, Chloride 108 H, Carbon Dioxide 26.0, Anion Gap 8, BUN 2 L, Creatinine 0.68, Estim Creat Clear Calc 107.31, Est GFR (MDRD) Af Amer 132, Est GFR (MDRD) Non-Af 109, BUN/Creatinine Ratio 2.9 L, Glucose 135 H, Calcium 8.7, Total Bilirubin 0.40, AST 16, ALT 41, Alkaline Phosphatase 100, Total Protein 6.8, Albumin 3.2, Globulin 3.6, Albumin/Globulin Ratio 0.9 Micro: Microbiology 12/27/21 15:45 Nasal Secretion SARS-CoV-2 Antigen (Rapid) - Final Rhythm Strip Rhythm Strip: Sinus Rhythm Rate: 68 Ectopy: None Physical Exam Narrative alert, oriented x3, no apparent distress and well nourished General Appearance: cooperative, well kempt and well developed Orientation / Consciousness: awake, oriented to person, oriented to place and oriented to time HEENT normocephalic, head/scalp atraumatic and moist oral mucous membranes Eyes PERRL, EOMs intact bilaterally and conjunctivae normal Neck supple, no JVD, thyroid normal and no carotid bruits General: trachea midline Resp normal respiratory effort, no retractions, no use of accessory muscles and clear to auscultation bilaterally Auscultation: Negative for rales, rhonchi or wheezes Cardio regular rate, regular rhythm, S1 normal heart sound, S2 normal heart sound, no murmurs, no rub and no gallops GI normal to inspection, nondistended, normoactive bowel sounds, soft to palpation, non-tender and non-distended Extremity no clubbing, cyanosis or edema Skin Skin Narrative: Patient has a large healing laceration of her left forearm on the ventral aspect of the forearm, interrupted sutures are in place, there does not appear to be any drainage from the area.? There is evidence of healed superficial lacerations over the patient's arms bilaterally. General Skin Exam: no breakdown Neuro oriented x3, CN's II-XII intact bilaterally, no focal motor deficits and no sensory deficits noted Sensorium / Orientation: awake and alert Speech: speech normal Psych affect normal Assessment & Plan Assessment/Plan (1) Suicide attempt: PLAN: Plan 1. Suicide attempt with overdose of Tylenol-patient's Tylenol level is not reportable at this time, I believe she is medically stable for discharge to an outpatient psychiatric facility at this time. #2 asthma-this is stable at this time, she is on budesonide aerosols #3 chronic depression-patient's antidepressant is being held at this time, she will be evaluated by crisis intervention when she is medically stable. #4 hypokalemia-patient was given oral potassium supplementation. Charges/Coding Visit Charges Inpatient E&M: 84199 Subs Hosp L2
--- NOTE | 2021-12-29 17:29 | PCM.PN.INT ---
Assessment & Plan Assessment/Plan (1) Suicide attempt: PLAN: Plan 1. Suicide attempt with overdose of Tylenol, and recent cutting of left forearm, sutured -She is still having suicidal ideation and is emotionally very labile -I agree patient is ready for transfer to inpatient psychiatry and is medically stable -Recommend restarting her antidepressant 2. asthma, stable -Change DuoNeb every 6 hours to albuterol 2 puffs every 4-6 hours while awake in preparation for transfer -We will ask pharmacy to confirm her outpatient asthma meds, she may be on both Advair and Spiriva. -Meanwhile she is on budesonide 0.5 mg via nebulizer twice daily. We will continue this until we are sure of her usual outpatient asthma meds 3. Depression: Unstable -Recommend restarting her antidepressant if there will be a delay due to bed availability for inpatient psych 4. hypokalemia-supplemented -Repeat level 5. Elevated PT -Recommend oral vitamin K supplementation to decrease risk of blood loss in the event of future cutting attempts. Thank you for consulting pulmonary and critical care on your pleasant patient. She is no longer critically ill and pulmonary can continue to follow for asthma outpatient recommendations. Critical care time spent with patient at bedside, review of documentation, lab results, radiology and other test results, discussion with colleagues and ancillary staff, clinical management of patient, and updating family if applicable, was 35 minutes. This time does not include any procedures, if performed. [place] [address]. Subjective Subjective This 26-year-old woman was admitted for self trauma with a razor blade to the right forearm, and Tylenol overdose intentional suicide attempt. She has completed her Mucomyst protocol (N acetylcysteine with normal Tylenol level and normal liver function test. She is ready to transfer to inpatient psychiatry because of continued severe emotional lability and danger to self. Her suicide attempt and ongoing mental distress are largely related to the loss of her near-term in august 2021. Her first ended in loss, she has 2 children ages 7 and 9 who are alive and well, and a second loss in August 2021. She remains tearful and despondent, and cannot talk about it during my visit with her today. Her friend Katy was available at bedside to provide this history, I received the patient's permission to talk candidly with Katy prior to involving her in the conversation. She had no complaints about her left arm, which was wrapped with an Tacho bandage. She denied any vascular compromise or decreased range of motion of her fingers or wrist. The ER physician and hospitalist reported that the patient was in the ER prior to her overdose attempt, and was trying to remove her sutures from the laceration repair while in the ER. Objective Data Objective Data Vital Signs: Vital Signs Temp Pulse Resp BP Pulse Ox O2 Del Method O2 Flow Rate 36.8 C 115 H 18 114/76 98 Room Air 2 12/29/21 11:00 12/29/21 11:00 12/29/21 11:00 12/29/21 11:00 12/29/21 11:00 12/29/21 11:00 12/29/21 04:42 Oxygen Flow Rate (L/min) 2 Oxygen Delivery Method Room Air Weight: 70.7 kg Body Mass Index (BMI) 25.8 Intake & Output: Intake and Output for Last 24 Hours 12/27/21 12/28/21 12/29/21 23:59 23:59 23:59 Intake Total 260 / 260 4221.58 / 4221.58 1218.75 / 1218.75 Output Total 0 / 0 700 / 700 400 / 400 Balance 260 / 260 3521.58 / 3521.58 818.75 / 818.75 Lab / Micro Data Result Diagrams: 12/29/21 06:25 12/29/21 06:25 Labs: Laboratory Results - last 24 hr 12/28/21 15:55: Acetaminophen 8.7 L 12/29/21 06:25: PT 16.1 H, INR 1.3 12/29/21 06:25: Acetaminophen Not Reportable 12/29/21 06:25: WBC 11.5 H, RBC 4.02 L, Hgb 12.6, Hct 37.2, MCV 92.5, MCH 31.3, MCHC 33.9, RDW Std Deviation 42.5, RDW Coeff of Win 12.6, Plt Count 236, MPV 10.8, Immature Gran % (Auto) 0.500, Neut % (Auto) 84.0 H, Lymph % (Auto) 9.2 L, [place] % (Auto) 5.7, Eos % (Auto) 0.3, Baso % (Auto) 0.3, Absolute Neuts (auto) 9.7 H, Absolute Lymphs (auto) 1.06, Nucleated RBC % 0 12/29/21 06:25: Sodium 142, Potassium 3.0 L, Chloride 108 H, Carbon Dioxide 26.0, Anion Gap 8, BUN 2 L, Creatinine 0.68, Estim Creat Clear Calc 107.31, Est GFR (MDRD) Af Amer 132, Est GFR (MDRD) Non-Af 109, BUN/Creatinine Ratio 2.9 L, Glucose 135 H, Calcium 8.7, Total Bilirubin 0.40, AST 16, ALT 41, Alkaline Phosphatase 100, Total Protein 6.8, Albumin 3.2, Globulin 3.6, Albumin/Globulin Ratio 0.9 Micro: Microbiology 12/27/21 15:45 Nasal Secretion SARS-CoV-2 Antigen (Rapid) - Final negative Radiography Diagnostic Testing: Chest x-ray July 23, 2020 and report were personally reviewed, and showed no acute pulmonary pathology. Rhythm Strip Rhythm Strip: Sinus Rhythm Rate: 68 Ectopy: None Physical Exam Narrative Well-developed well-nourished labile affect, moderately distressed mood. Minimally verbal although capable of talking. HEENT unremarkable with moist mucous membranes Neck is supple with no JVD thyromegaly or mass Chest: Patient would not allow a complete exam and only sat up part way, to the extent possible the lungs were clear bilaterally Heart normal S1-S2 with no murmurs rubs or gallops Abdomen soft, nontender, normal bowel sounds, no organomegaly or rebound Extremities have no clubbing cyanosis or edema, the left forearm dorsal surface was wrapped with a Tacho bandage, with grossly normal function and appearance of the left digits hand and wrist. Multicolored tattoo on the right forearm with the name of her and the date August 2021. Patient confirmed that was the name given to her daughter. Neurologic exam nonfocal. Const alert and oriented x3
[2021-12-29] MEDS: LORazepam 2 MG/ML Syringe 1 MG IV (19:14)
--- NOTE | 2021-12-29 20:32 | PHA.CONS1_ITS ---
Progress Note - Pharmacy RN put a consult in for pharmacy to clarify patients Spiriva/Advair. Mateo called patients [facility] pharmacy in [place]. patient is currently on Spiriva Respimat 1.25 mcg 2 inhalations daily. Objective: Allergies COVID-19 vaccine, mRNA, [id number], Allergy (Severe, Verified 12/27/21 15:24) Anaphylaxis Hypertension also bee venom protein (honey bee) Allergy (Verified 12/27/21 15:24) Anaphylaxis omalizumab [From Xolair] Allergy (Verified 12/27/21 15:24) Anaphylaxis prochlorperazine edisylate [From Compazine] Allergy (Verified 12/27/21 15:24) Swelling states throat swells prochlorperazine maleate [From Compazine] Allergy (Verified 12/27/21 15:24) Swelling states throat swells Current Medications Generic Name Dose Route Start Last Admin Trade Name Freq PRN Reason Stop Dose Admin Albuterol Sulfate 2.5 mg 12/27/21 21:03 12/29/21 04:42 Albuterol 2.5 Mg/3 Ml Vial.Neb. INHALATION 2.5 mg Q2H PRN PRN Administration SOB/Wheezing Albuterol/Ipratropium 3 ml 12/28/21 07:45 12/29/21 19:14 Ipratropium/Albuterol Sulfate 3 Ml Ampul.Neb INHALATION 3 ml Q6HWA.RT FELIPE Administration Budesonide 0.5 mg 12/28/21 07:45 12/29/21 07:25 Budesonide Respules 0.5 Mg/2 Ml Ampul.Neb. INHALATION 0.5 mg BID.RT FELIPE Administration Hydrocortisone 1 applic 12/28/21 11:18 12/29/21 16:00 Hydrocortisone 2.5% Crm TOPICAL 1 applic BID PRN PRN Administration RASH/TOPICAL IRRITATION Sodium Chloride 10 - 40 ml 12/27/21 20:01 12/28/21 22:49 0.9% Saline Lock 10 Ml Syringe IV 10 ml UD PRN Administration SALINE FLUSH Problem List (Last Reviewed 12/28/21 @ 07:[address] Kiran Braga MD) Tylenol overdose (Acute) Suicide attempt (Acute) Asthma (Acute) Depression (Acute) Vital Signs Temp Pulse Resp BP Pulse Ox O2 Del Method O2 Flow Rate 98.0 F 102 H 16 117/79 99 Room Air 2 12/29/21 18:34 12/29/21 18:34 12/29/21 18:34 12/29/21 18:34 12/29/21 18:34 12/29/21 18:34 12/29/21 04:42 Oxygen Flow Rate (L/min) 2 Oxygen Delivery Method Room Air Weight: 70.7 kg Body Mass Index (BMI) 25.8 Sodium 142 mmol/L (136-145) 12/29/21 06:25 Potassium 3.0 mmol/L (3.5-5.1) L 12/29/21 06:25 Chloride 108 mmol/L (98-107) H 12/29/21 06:25 Carbon Dioxide 26.0 mmol/L (21.0-32.0) 12/29/21 06:25 Anion Gap 8 (5-15) 12/29/21 06:25 BUN 2 mg/dL (7-18) L 12/29/21 06:25 Creatinine 0.68 mg/dL (0.55-1.02) 12/29/21 06:25 Est GFR (MDRD) Af Amer 132 mL/min (>60) 12/29/21 06:25 Est GFR (MDRD) Non-Af 109 mL/min (>60) 12/29/21 06:25 BUN/Creatinine Ratio 2.9 RATIO (10-20) L 12/29/21 06:25 Glucose 135 mg/dL (74-106) H 12/29/21 06:25 Assessment/Plan: Date of Note:: 12/29/21
--- NOTE | 2021-12-30 10:52 | CASEMGMT ---
Social Work 0834 KERRY placed call to Natasha at Crisis to inquire able pt acceptance to psychiatric facility. Natasha states she just got in the office and will call this worker back after she looks into case. 0841 SW received call from Luann at [facility] who states their MD is concerned with pts asthma attacks and that pt cannot admit as she is receiving aerosol treatments and cannot admit with asthma issues. KERRY informed Luann that per rounds with physician and respiratory yesterday, pt has a long history of asthma and this will not resolve. Pt is receiving aerosol treatments in hospital in place of usual inhalers that pt has and uses and can bring with her. Luann states she will pass this on to MD and call SW back. 0851 SW received call from Luann at [facility] who states their MD now states if pt is discharged on oral steroids, then pt can be accepted after noon today. 0858 SW arrived on ICU and was informed that pt was picked up [facility] at 0845 to be transported to [facility]. KERRY spoke with RN and physician who state they received report that pt was accepted at [facility] last evening but pt could not be transported due to issues with Asthma and that [facility] would accept in the morning and transport had been arranged for 0900 with transport arriving at 0845. Nurse to Nurse was provided by night RN. 09 SW placed call to Luann at [facility] and informed of above. Luann denies pt being accepted at facility and that a bed was not available. Luann to talk to her freight loading supervisor and call this SW back. 0916 SW placed call to Luann at [facility] to discuss case. Luann confirms Nurse to Nurse report was received. There was a mix up in communication and that they do not take pt's insurance. Luann states her freight loading supervisor has been updated to the miscommunication and has agreed to accept pt to their facility when she arrives despite confusion. 09 SW placed call to Natasha at crisis and explained the above situation. Natasha states that she was under the impression that [facility] had accepted pt. Natasha states the crisis notes state pt has been accepted at [facility] and would stay in ICU over night due to nebulizer treatment and asthma concerns and transfer in the morning. KERRY informed Natasha about concern with [facility] not taking pt insurance. Natasha states this has been an ongoing issue and she does not believe this is accurate information. Pt Disposition: [facility], facility willing to accept upon pt arrival. ARUN Bradshaw
--- NOTE | 2021-12-30 18:38 | PCM.DC.SUM ---
Providers Date of Admission: 12/27/21 Date of Discharge: 12/30/21 Primary Care Physician: Dr. Evelio Hernandez, Consultations 12/27/21 21:03 Consult: Package Line Operator / Pulmonary Medicine Routine Consulting Provider: Kiran Braga Reason for Consult: Tylenol overdose EMERGENT Consult: No MD Notified: Yes Date Notified: 12/27/21 Time Notified: 19:50 Method of Notification: Text Reason For Visit: TYLENOL OVERDOSE Diagnosis Discharge Diagnosis (1) Suicide attempt: Status: Acute Code(s): T14.91XA - Suicide attempt, initial encounter Plan 1. Suicide attempt with overdose of Tylenol #2 asthma (chronic) #3 chronic depression #4 hypokalemia Medications at Discharge Home Medications albuterol sulfate 90 mcg/actuation aerosol inhaler 1 puff inhalation Q4H PRN PRN Asthma 08/17/17 epinephrine 0.3 mg/0.3 mL injection, auto-injector 0.3 mg IM DAILY PRN Allergies 08/17/17 fexofenadine 180 mg tablet 180 mg PO DAILY Check with primary doctor 06/25/19 ascorbic acid (vitamin C) 500 mg tablet,extended release (Vitamin C ER) 500 mg PO DAILY Check with primary doctor 06/26/19 coenzyme [id number] E 100 mg-100 unit capsule 1 cap PO DAILY Check with primary doctor 06/26/19 pantoprazole 40 mg tablet,delayed release 40 mg PO BID Check with primary doctor 02/08/21 potassium chloride 10 mEq tablet,extended release 10 meq PO BID Check with primary doctor 02/08/21 ipratropium bromide 21 mcg (0.03 %) nasal spray 2 spray intranasal BID Check with primary doctor 03/11/21 pyridoxine (vitamin B6) 500 mg tablet 500 mg PO DAILY Check with primary doctor 04/05/21 fluticasone 250 mcg-salmeterol 50 mcg/dose blistr powdr for inhalation (Advair Diskus) 1 inh inhalation BID Check with primary doctor 08/03/21 tiotropium bromide 1.25 mcg/actuation mist for inhalation (Spiriva Respimat) 2 puff inhalation DAILY ASTHMA 08/03/21 cephalexin 500 mg capsule 500 mg PO TID #15 CAPSULES 12/23/21 fluoxetine 20 mg tablet 20 mg PO TID Check with primary doctor 12/27/21 Hospital Course Operations None Procedures None Summary of Care Provided Minutes Spent on Discharge: 32 Hospital Course: This 26-year-old white female was seen in the emergency room at [facility] after being directed there by a family member due to admitting that she took a large amount of Tylenol. Labs obtained in the emergency room showed an elevated Tylenol level, patient had been seen in the emergency room approximately a week before after cutting her left arm with a razor blade intentionally, patient had an extensive psychiatric history. Patient was admitted to ICU, she was placed on N-acetylcysteine, she was seen by critical care, and Tylenol levels were monitored. There is no evidence of any hepatic damage to the patient, she did have a slightly low potassium and this was corrected with oral potassium supplementation. Crisis was contacted, they made arrangements for the patient to be transferred to a psychiatric facility. On 12/30/2021, patient was seen and examined: On examination she appeared anxious, she does not appear to be in any distress. Vital signs as documented. Skin warm and dry and without overt rashes. Neck without JVD, thyroid appears normal, trachea is midline, neck is supple. Lungs clear, normal air movement was noted. Heart exam notable for regular rhythm, normal sounds and absence of murmurs, rubs or gallops. Abdomen unremarkable and without evidence of organomegaly, masses, or abdominal aortic enlargement, bowel sounds are present in all 4 quadrants, no abdominal tenderness was noted. Extremities nonedematous, no cyanosis was noted, no clubbing was noted. Neuro: Cranial nerves II through XII are grossly intact, no focal motor deficits were noted, sensation to light touch and pinprick is intact, motor exam 5/5 throughout. Psych: Patient is alert and oriented x3, she appeared anxious at the time of my examination On 12/30/2021, patient was transferred to an outpatient psych facility in stable condition. Weight / BMI Weight Weight: 71.1 kg Body Mass Index (BMI) 25.8 ABG / Lab / Microbiology Data Result Diagrams: 12/29/21 06:25 12/29/21 06:25 Microbiology: Microbiology 12/27/21 15:45 Nasal Secretion SARS-CoV-2 Antigen (Rapid) - Final Meaningful Use Info Meaningful Use Diagnoses (Choose all that apply): None applicable Discharge Plan Admission Admit Date/Time: 12/27/21 19:39 Attending Provider: Fernando Rosario Primary Care Provider: Evelio Hernandez Consulting Providers: Kiran Braga ; Doc Avina Discharge Orders/Prescriptions Prescriptions: No Action fexofenadine 180 mg tablet 180 mg PO DAILY ascorbic acid (vitamin C) [Vitamin C] 500 mg tablet extended release 500 mg PO DAILY coenzyme [id number] E 100 mg-100 unit capsule 100-100 mg-unit capsule 1 cap PO DAILY ipratropium bromide 21 mcg (0.03 %) spray,non-aerosol 2 spray intranasal BID Rx Instructions: administer into each nostril pyridoxine (vitamin B6) 500 mg tablet 500 mg PO DAILY epinephrine 0.3 MG syringe 0.3 mg IM DAILY PRN (Reason: Allergies) albuterol sulfate 1 INHALER inhaler 1 puff inhalation Q4H PRN PRN (Reason: Asthma) potassium chloride 10 mEq tablet extended release 10 meq PO BID pantoprazole 40 mg tablet,delayed release (DR/EC) 40 mg PO BID fluticasone propion-salmeterol [Advair Diskus] 250-50 mcg/dose blister with device 1 inh inhalation BID Spiriva Respimat 1.25 mcg/actuation mist 2 puff inhalation DAILY cephalexin [cephalexin] 500 MG capsule 500 mg PO TID Qty: 15 0RF fluoxetine 20 mg tablet 20 mg PO TID Referrals / Follow Up: Evelio Hernandez DO [Primary Care Provider] - Disposition Disposition (needs filled in before D/C Order can be placed): Psychiatric Hospital or Unit Charges/Coding Visit Charges Inpatient E&M: 32080 Disch Hosp
== END 2021-12-30 08:55 | DRG 817 ==
LOC: ED 19:34 → ICU 19:53
PROVIDERS: Internal Medicine Critical Care Medicine; Admitting Provider Hospitalist; Emergency Provider Emergency Medicine; PCP Student in an Organized Health Care Education/Training Program; Visit Provider Internal Medicine
DX: T39.1X2A Poisoning by 4-Aminophenol derivatives, intentional self-harm, initial encounter (principal); G92.9 Unspecified toxic encephalopathy; X78.9XXA Intentional self-harm by unspecified sharp object, initial encounter; F33.41 Major depressive disorder, recurrent, in partial remission; E87.6 Hypokalemia; J45.50 Severe persistent asthma, uncomplicated; F41.9 Anxiety disorder, unspecified; K21.9 Gastro-esophageal reflux disease without esophagitis; K58.9 Irritable bowel syndrome, unspecified; S51.812A Laceration without foreign body of left forearm, initial encounter; Z79.899 Other long term (current) drug therapy; Z91.51 Personal history of suicidal behavior; R94.31 Abnormal electrocardiogram [ECG] [EKG]
CPT/HCPCS: 36415; 80048; 80053; 80076; 80307; 80329; 82077; 83735; 84703; 85025; 85610; 87811; 93005; 94640; 94762; 97802; 99285; J7030; J7120; A4216; G0480; J3490

== ENCOUNTER 2022-01-28 11:34 | Emergency (ER) | payer MEDICAID, SELFPAY ==
[2022-01-28 11:38] VITALS: BP 125/90; PULSE 92; RESP 18; TEMP 36.9; O2SAT 99; BMI 26.4
--- NOTE | 2022-01-28 12:07 | EX.ED.VIS.PS ---
HPI HPI - Psych History of Present Illness Chief Complaint: Suicidal Informant: patient and mental health staff Onset/Context/Timing Onset: Today Context: Gradual Onset Timing: Continuous Relieved by: Nothing Associated Symptoms Associated Symptoms - Psych: Positive for Depressed and Suicidal Thoughts; Negative for Visual Hallucinations or Auditory Hallucinations Specific plan (suicidal thought): Cutting her wrist and overdosing on Tylenol and ibuprofen Narrative Narrative: Patient presents with depression and suicidal ideations that became worse today. Patient was seeing her counselor today. Patient told her counselor she was having suicidal thoughts. Counselor states that the patient bought Tylenol PM and ibuprofen along with several razor blades. Patient states her plan was to overdose and cut her wrist. Patient has done this in the past. Patient was recently discharged from a mental health facility after overdosing on Tylenol and cutting her wrist. Patient had her medications changed recently and has only been on her current medications for approximately 2 and 1/2 weeks. Prior similar symptoms: Yes PFSH PFSH Medical History Allergic rhinitis Anxiety Asthma Chronic cough Depression Eustachian tube dysfunction Gastric reflux History of IBS History of steroid therapy IBS (irritable bowel syndrome) Low-lying placenta in second trimester Non-smoker Posterior auricular lymphadenopathy Suicide attempt Vestibular migraine Wears contact lenses Wears glasses Home Medications albuterol sulfate 90 mcg/actuation aerosol inhaler 1 puff inhalation Q4H PRN PRN Asthma 08/17/17 [History Last Taken 08/11/17] epinephrine 0.3 mg/0.3 mL injection, auto-injector 0.3 mg IM DAILY PRN Allergies 08/17/17 [History Last Taken Unknown] fexofenadine 180 mg tablet 180 mg PO DAILY Check with primary doctor 06/25/19 [History Last Taken Unknown] ascorbic acid (vitamin C) 500 mg tablet,extended release (Vitamin C ER) 500 mg PO DAILY Check with primary doctor 06/26/19 [History Last Taken Unknown] coenzyme Y46-[id number] E 100 mg-100 unit capsule 1 cap PO DAILY Check with primary doctor 06/26/19 [History Last Taken Unknown] pantoprazole 40 mg tablet,delayed release 40 mg PO BID Check with primary doctor 02/08/21 [History Last Taken 02/15/21 07:00] ipratropium bromide 21 mcg (0.03 %) nasal spray 2 spray intranasal BID Check with primary doctor 03/11/21 [History Last Taken Unknown] pyridoxine (vitamin B6) 500 mg tablet 500 mg PO DAILY Check with primary doctor 04/05/21 [History Last Taken Unknown] fluticasone 250 mcg-salmeterol 50 mcg/dose blistr powdr for inhalation (Advair Diskus) 1 inh inhalation BID Check with primary doctor 08/03/21 [History Last Taken Unknown] tiotropium bromide 1.25 mcg/actuation mist for inhalation (Spiriva Respimat) 2 puff inhalation DAILY ASTHMA 08/03/21 [History Last Taken Unknown] fluoxetine 20 mg tablet 40 mg PO DAILY Check with primary doctor 12/27/21 [History Last Taken Unknown] prazosin 1 mg capsule 1 mg PO QHS 01/28/22 [History Last Taken Unknown] quetiapine 100 mg tablet 100 mg PO QHS 01/28/22 [History Last Taken Unknown] Allergy/AdvReac Type Severity Reaction Status Date / Time COVID-19 vaccine, mRNA, Allergy Severe Anaphylaxis Verified 01/28/22 11:37 [id number], bee venom protein (honey bee) Allergy Anaphylaxis Verified 01/28/22 11:37 omalizumab [From Xolair] Allergy Anaphylaxis Verified 01/28/22 11:37 prochlorperazine edisylate Allergy Swelling Verified 01/28/22 11:37 [From Compazine] prochlorperazine maleate Allergy Swelling Verified 01/28/22 11:37 [From Compazine] Family History Brother Asthma Mother Hypertension Heart disease Father Depression Heart disease Hyperlipidemia Hypertension Surgical History Hx of colonoscopy Hx of dilation and curettage Social History household members: family current occupational status: unemployed pets and animals: Yes Smoking Status: Never smoker second hand exposure: No alcohol intake: never substance use type: does not use seatbelt use: always do you feel safe at home: Yes additional social history: trans male, - Humza ROS ROS ED Constitutional Constitutional ED: Denies chills or fever(s) Eyes Eyes: Denies blurry vision or change in vision ENT ENT ED: Denies rhinorrhea or sore throat Cardiovascular Cardiovascular: Denies chest pain or palpitations Respiratory/Chest Respiratory/Chest: Denies cough or dyspnea Gastrointestinal Gastrointestinal: Denies nausea or vomiting Genitourinary Genitourinary ED: Denies dysuria or hematuria Musculoskeletal Musculoskeletal: Denies back pain or neck pain Integumentary Denies abscess or rash Neurologic Neurologic: Denies headache(s) or weakness Psychiatric Psychiatric: Reports depression and suicidal thoughts Allergic/Immunologic Allergic/Immunologic ED: Denies mouth swelling or urticaria EXAM Physical Exam Const Vital Signs: 01/28/22 11:38 Temperature 98.5 F Temperature Source Temporal Pulse Rate 92 Respiratory Rate 18 Blood Pressure 125/90 H Blood Pressure Mean 101 Pulse Ox 99 Oxygen Delivery Method Room Air Positive well nourished and well developed General Appearance ED: well developed HEENT normocephalic and atraumatic Neck supple and no JVD Resp normal respiratory effort and clear to auscultation bilaterally Cardio no murmurs Rate: regular rate Rhythm: regular rhythm GI non-tender and non-distended Auscultation: normoactive bowel sounds Palpation: soft Extremity normal to inspection General Extremety ED: Negative for edema or tenderness General Extremity: Negative for edema Neuro oriented x3, CN's II-XII intact bilaterally and no sensory deficits noted Sensorium / Orientation: alert Motor Exam: strength 5/5 throughout Psych mental status grossly normal Activity / Motor Behavior: avoids eye contact Speech: minimal and soft Mood & Affect: depressed and flat affect Thought Content: suicidality, No homicidality and No hallucination(s) Skin Rashes: no rashes MDM MDM MDM Narrative Medical decision making narrative: Suicide precautions were maintained. Basic labs were obtained. EKG was obtained. On my interpretation, it showed a normal sinus rhythm with a rate of 78. WI interval, QRS interval, and QTc intervals were all normal. Bodfish was normal. There are no acute ST or T wave changes. CBC was within normal limits. Basic metabolic profile was within normal limits. Urine tox urine was positive for benzodiazepine but was otherwise within normal limits. Serum hCG was negative. ornamental iron worker helper also evaluated the patient. We feel the patient would benefit from inpatient treatment. ornamental iron worker helper is attempting to have the patient placed in a psychiatric facility. Patient was accepted at [facility]. Patient will be transferred there. Patient understood and was agreeable with the plan. All questions were answered. Lab Data Attestation: I reviewed the patient's lab results. Labs: Laboratory Results - last 24 hr 01/28/22 01/28/22 01/28/22 12:15 13:08 13:08 WBC 6.9 RBC 4.58 Hgb 14.9 Hct 42.5 MCV 92.8 MCH 32.5 H MCHC 35.1 RDW Std Deviation 41.2 RDW Coeff of Win 12.1 Plt Count 251 MPV 10.6 Immature Gran % (Auto) 0.100 Neut % (Auto) 70.1 H Lymph % (Auto) 19.6 Bailey % (Auto) 7.7 Eos % (Auto) 1.9 Baso % (Auto) 0.6 Absolute Neuts (auto) 4.8 Absolute Lymphs (auto) 1.35 Nucleated RBC % 0 Sodium 139 Potassium 3.9 Chloride 105 Carbon Dioxide 26.0 Anion Gap 8 BUN 10 Creatinine 0.64 Estim Creat Clear Calc 114.02 Est GFR (MDRD) Af Amer 141 Est GFR (MDRD) Non-Af 117 BUN/Creatinine Ratio 15.5 Glucose 88 Calcium 9.8 Serum , Qual Urine Opiates Screen NEGATIVE Urine Methadone Screen NEGATIVE Ur Barbiturates Screen NEGATIVE Ur Phencyclidine Scrn NEGATIVE Ur Amphetamines Screen NEGATIVE MDMA (Ecstasy) Screen NEGATIVE U Benzodiazepines Scrn POSITIVE H Urine Cocaine Screen NEGATIVE U Cannabinoids Screen NEGATIVE Ur Drug Screen Comment 01/28/22 13:08 WBC RBC Hgb Hct MCV MCH MCHC RDW Std Deviation RDW Coeff of Win Plt Count MPV Immature Gran % (Auto) Neut % (Auto) Lymph % (Auto) Bailey % (Auto) Eos % (Auto) Baso % (Auto) Absolute Neuts (auto) Absolute Lymphs (auto) Nucleated RBC % Sodium Potassium Chloride Carbon Dioxide Anion Gap BUN Creatinine Estim Creat Clear Calc Est GFR (MDRD) Af Amer Est GFR (MDRD) Non-Af BUN/Creatinine Ratio Glucose Calcium Serum , Qual NEGATIVE Urine Opiates Screen Urine Methadone Screen Ur Barbiturates Screen Ur Phencyclidine Scrn Ur Amphetamines Screen MDMA (Ecstasy) Screen U Benzodiazepines Scrn Urine Cocaine Screen U Cannabinoids Screen Ur Drug Screen Comment EKG Initial EKG: Attestation: I personally reviewed and interpreted this EKG as follows: Interpretation: Sinus Rhythm (78) and No Acute Injury Pattern Prior EKG tracings: available for review Prior: Unchanged (12/28/2021) Discharge Plan Triage Chief Complaint: Suicidal ED Provider: Layton Higgins Dx/Rx/DC Orders Clinical Impression: Suicidal ideation, Depression Prescriptions: No Action fexofenadine 180 mg tablet 180 mg PO DAILY ascorbic acid (vitamin C) [Vitamin C] 500 mg tablet extended release 500 mg PO DAILY coenzyme [id number] E 100 mg-100 unit capsule 100-100 mg-unit capsule 1 cap PO DAILY ipratropium bromide 21 mcg (0.03 %) spray,non-aerosol 2 spray intranasal BID Rx Instructions: administer into each nostril pyridoxine (vitamin B6) 500 mg tablet 500 mg PO DAILY epinephrine 0.3 MG syringe 0.3 mg IM DAILY PRN (Reason: Allergies) albuterol sulfate 1 INHALER inhaler 1 puff inhalation Q4H PRN PRN (Reason: Asthma) pantoprazole 40 mg tablet,delayed release (DR/EC) 40 mg PO BID fluticasone propion-salmeterol [Advair Diskus] 250-50 mcg/dose blister with device 1 inh inhalation BID Spiriva Respimat 1.25 mcg/actuation mist 2 puff inhalation DAILY fluoxetine 20 mg tablet 40 mg PO DAILY prazosin 1 mg capsule 1 mg PO QHS Label Comments: TAKE 1 CAPSULE BY MOUTH AT BEDTIME quetiapine 100 mg tablet 100 mg PO QHS Label Comments: TAKE 1 TABLET BY MOUTH AT BEDTIME Primary Care Provider: Evelio Hernandez Referrals: Evelio Hernandez DO [Primary Care Provider] - Disposition Disposition: Psychiatric Hospital or Unit Discharge Location: [facility]
[2022-01-28 12:35] LABS: Amphetamine Urine VISTA NEGATIVE (<1000 ng/mL); Barbiturate Urine VISTA NEGATIVE (< 200 ng/mL); Benzodiazepine Urine VISTA POSITIVE (< 200 ng/mL); Cocaine Urine VISTA NEGATIVE (< 300 ng/mL); Ecstacy Urine VISTA NEGATIVE (< 500 ng/mL); Methadone Urine VISTA NEGATIVE (< 300 ng/mL); PCP Urine VISTA NEGATIVE (< 25 ng/mL); THC Urine VISTA NEGATIVE (< 50 ng/mL); Vista UDS pH Range 6
[2022-01-28 13:16] LABS: Absolute Lymphocyte Count 1.35 X10^3/uL (0.83-4.51); Absolute Neutrophil Count 4.8 X10^3/uL (2.0-7.7); Basophil# 0.04 X10^3/uL; Basophil% 0.6 % (0-1); Eosinophil# 0.13 X10^3/uL; Eosinophils% 1.9 % (0-5); Hematocrit 42.5 % (37-47); Hemoglobin 14.9 g/dL (12.0-15.0); Lymphocyte # 1.35 X10^3/ul (0.83-4.51); Lymphocyte % 19.6 % (19-41); Mean Corp Hgb Conc 35.1 g/dL (32-36); Mean Corpuscular Hgb 32.5 pg (27.0-32.0); Mean Corpuscular Volume 92.8 fL (81-99); Mean Platelet Vol. 10.6 fl (6.2-12.0); Monocyte# 0.53 X10^3/uL; Monocyte% 7.7 % (0-10); NRBC Flagged by Analyzer 0 % (0-5); Neutrophil # 4.82 X10^3/uL (2.7-7.7); Neutrophil % 70.1 % (47-70); Platelet Count 251 K/mm3 (150-450); RBC Distribution Width CV 12.1 % (11.6-14.6); RBC Distribution Width SD 41.2 fl (35.1-43.9); Red Blood Count 4.58 M/mm3 (4.2-5.4); White Blood Count 6.9 K/mm3 (4.4-11.0)
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
[2022-01-28 13:27] LABS: Anion Gap 8 (5-15); BUN 10 mg/dL (7-18); BUN/Creat Ratio 15.5 RATIO (10-20); Calcium,Total 9.8 mg/dL (8.5-10.1); Chloride 105 mmol/L (98-107); Creatinine, Serum 0.64 mg/dL (0.55-1.02); EST Glomerular Filtration Rate 117 mL/min (>60); Est Glom Filt Rate - Afr Amer 141 mL/min (>60); Estimated Creatinine Clearance 114.02 ml/min; Glucose 88 mg/dL (74-106); Potassium 3.9 mmol/L (3.5-5.1); Sodium Level 139 mmol/L (136-145)
[2022-01-28 13:45] LABS: Internal QC Validated? YES +Cl - CLEAR BKGD; Pregnancy, Serum, hCG Quali. NEGATIVE Negative
--- NOTE | 2022-01-28 13:49 | CM.ED ---
KERRY called Maddie at [facility] and advised patient, who was scheduled for intake on Monday, will be hospitalized in inpatient psych so not be able to attend intake. Manuela STEWART
--- NOTE | 2022-01-28 14:23 | CM.ED ---
Addendum entered by Manuela Smith 01/28/22 15:10: Patient gave consent for this pattern chart writer to speak to her casemanager, Maricel. KERRY updated Maricel about where patient was going and the contact number. No further issues or concerns voiced. Manuela STEWART Addendum entered by Manuela Smith 01/28/22 14:25: SW updated patient that she needs inpatient psych and referrals have been made for her. Manuela STEWART Original Note: KERRY faxed referrals to [facility] and [facility]. Pravin from [facility] called with accepting. Accepting [facility] and patient is going to the Adult [facility]al Unit. RN to RN is [phone]. Rn and cleaning manager updated. Beena will schedule transport. Manuela STEWART
--- NOTE | 2022-01-28 14:25 | NURSING ---
PHYSICIANS CALLED. ETA OF 1530.
--- NOTE | 2022-01-28 14:39 | EKG12_ITS ---
Test Reason : PLACEMENT Blood Pressure : / mmHG Vent. Rate : 078 BPM Atrial Rate : 078 BPM P-R Int : 132 ms QRS Dur : 080 ms QT Int : 406 ms P-R-T Axes : 064 060 043 degrees QTc Int : 462 ms Normal sinus rhythm Normal ECG Confirmed by ANDREINA FREEMAN, LILIANA ([id number]), manager editorial MEE ALMAZAN ([id number]) on 01/29/2022 9:21:29 AM Referred By: Confirmed By:LILIANA HDZ MD
[2022-01-28 14:56] VITALS: BP 115/76; PULSE 96; RESP 16; TEMP 37.2; O2SAT 97
[2022-01-28 15:06] LABS: Salicylate < 1.7 mg/dL (2.8-20.0)
[2022-01-29 04:25] LABS: Acetaminophen (Tylenol) Level < 2.0 ug/mL (10.0-30.0)
== END 2022-01-28 16:20 ==
PROVIDERS: Emergency Provider Emergency Medicine; PCP Student in an Organized Health Care Education/Training Program; Visit Provider Emergency Medicine
DX: R45.851 Suicidal ideations (principal); F32.A Depression, unspecified; Z91.51 Personal history of suicidal behavior; J45.909 Unspecified asthma, uncomplicated
CPT/HCPCS: 80048; 80307; 80329; 82077; 84703; 85025; 87811; 93005; 99284; G0480

== ENCOUNTER → 2022-02-09 | Outpatient (CLI) | payer MEDICAID, SELFPAY | END | disposition home or self-care (01) | LOC: SL 10:29 | PROVIDERS: PCP Student in an Organized Health Care Education/Training Program; Visit Provider Nurse Practitioner Acute Care | DX: G47.10 Hypersomnia, unspecified (principal) | CPT/HCPCS: 95801; 95806 ==

== ENCOUNTER 2022-02-11 08:30 | Outpatient (RCR) | payer MEDICAID, SELFPAY ==
--- NOTE | 2021-12-14 11:39 | HP.PTEVAL ---
Patient's Visit Information LEIDY WILCOX is a 26 year old F referred to Physical Therapy by Dr. Keshia Martin MD with a diagnosis of HIGH TONE PELVIC FLOOR WITH PAIN. Date of Evaluation: 12/14/21 Physical Therapist: Vita Villegas PT, Cert MDT - Visit Plan Frequency: 1-2x /Week Duration: 6-8 WKS Plan: MANUAL PF THERAPY FOR STRENGTHENING, LENGTHENING/RELAXATION AND ENDURANCE TRAINING. URINARY RETENTION EDUCATION. CONSIDER INTERNAL OR EXTERNAL PF BIOFEEDBACK WITH EQUIPMENT. TRAINING IN COORDINATION OF PELVIC FLOOR MUSCULATURE WITH CORE (TRANSVERSE ABDOMINUS) STRENGTHENING. TRAINING IN ABDOMINAL CAVITY PRESSURE MGMT WITH ADL'S TO DECREASE ANY URINARY LEAKING. POSTURE CORRECTION/STRENGTHENING. - Subjective Work/Leisure: STAY AT HOME MOM OF 7 AND 4 YEAR OLD. 4 YEAR OLD IS AUTISTIC AND AGGRESSIVE. Present symptoms: PATIENT REPORTS SHE HAS CONSTANT PELVIC PAIN AND BULGING FROM HER VAGINA. ALSO REPORTS SHE HAS LOST THE SENSATION THAT SHE NEEDS TO PEE. DIFFICULTY COMPLETELY EMPTYING BLADDER. Present since: AUGUST 2021 - STILL BORN DELIVERY FOLLOWED BY INFECTION AND UTERINE PROLAPSE. PATIENT REPORTS SHE USE TO HAVE A LOT OF PROBLEMS WITH COMPLETELY EMPTYING HER BLADDER FOR YEARS AND STILL A PROBLEM. Pain Scale: WORST 7/10, LEAST 2/10. Currently: 2/10. Symptoms at onset: DIFFICULTY EMPTYING BLADDER. Worse: NORMAL DAILY ACTIVITIES. HURTS THE MOST BY THE END OF THE DAY. TAKING CARE OF THE KIDS AND CLEANING IS PAINFUL BUT PUSHES THROUGH THE PAIN. Better: VAGINAL suppositories - PRESCRIBED. Disturbed sleep: YES - IF DOES NOT USE SUPPOSITORIES. NOT GETTING UP TO GO TO THE BATHROOM AT NIGHT AT ALL NOW SINCE SHE HAS LOST THE SENSATION TO GO BUT USE TO GET UP EVERY HOUR. NO LEAKING AT NIGHT. Previous history/Previous treatment: PATIENT REPORTS A HISTORY OF BACK PAIN AND DX OF HYPER-LORDOSIS TREATED BY CHIROPRACTOR. PATIENT REPORTS SHE HAS BEEN GETTING A LOT OF LOW BACK PAIN FOR YEARS AND HER BACK PAIN HAS BEEN WORSE WITH HER PELVIC PAIN. NO PRIOR TREATMENT FOR BLADDER AND PELVIC PROBLEMS. NO BACK SURGERY. NO BACK INJECTIONS. Treatment this episode: VAGINAL SUPPOSITORIES AT NIGHT WITH PAIN MEDICINE AND MUSCLE RELAXER - PATIENT REPORTS THESE ARE HELPING AND SHE STARTED USING THEM ABOUT 10 DAYS AGO. Coughing/sneezing/straining: SOMETIMES CAUSES LEAKING. COUGHING INCREASES PAIN. STRAINING MAKES EVERYTHING FEEL A LOT WORSE. Gait: NORMAL. Bowel or Bladder Dysfunction: PATIENT DENIES BOWEL INCONTINENCE. OCCASSIONAL BLADDER LEAKING. PATIENT REPORTS THAT SOMETIMES IF SHE IGNORES HER INTENSE PELVIC PAIN AND SHE DOESN'T GO TO THE BATHROOM HER BLADDER WILL START LEAKING. Accidents: NO. Unexplained weight loss: NO. Imaging: ULTRASOUND AT OB OFFICE A COUPLE WEEKS AGO AND EVERYTHING WAS NORMAL FOR THAT PER PATIENT REPORT. PMH/Recent major surgery: ASTHMA. H/O A LOT OF UTI'S AND KIDNEY INFECTIONS. PRONE TO BRONCHITIS AND PNEUMONIA YEARLY. PLOF (Prior Level of Function): PRIOR TO LAST - UNLIMITED EXCEPT WHEN ASTHMA FLARED UP. OTHER: . - Objective Sitting/Standing Posture: POOR. FH. RSH'S. SLOUCHED IN LOW BACK. Lordosis: NORMAL - NO RELEVENT LATERAL SHIFT. Active Correction of posture: WORSE - INCREASES C/O LOW BACK AND PELVIC PAIN. Other Observations: INDEP GAIT AND TRANSFERS. NO AD'S. Sensory deficit: RUDOLPH LE LIGHT TOUCH SENSATION IS GROSSLY INTACT AND SYMMETRICAL. ROM deficit: RUDOLPH LE GROSSLY WFL BUT TIGHT RUDOLPH HIP ADDUCTORS. Motor deficit: RUDOLPH LE'S GROSSLY 5/5 WITH MMT'ING BUT GRADED 4-/5 RUDOLPH HIPS AND HIP STRENGTH APPEARS TO BE PAIN LIMITED. Lumbar mvmt loss: flex - NIL. ext - MIN - INCREASES RIGHT LBP. R SG - MIN. L SG - MIN. Core strength: POOR. Palpation: TENDERNESS WITH LIGHT PALPATION OF THE LOWER LUMBAR SPINE REGION. OTHER: INTERNAL MANUAL VAGINAL EXAM OF THE PELVIC FLOOR REVEALS PELVIC FLOOR TIGHTNESS, WEAKNESS AND TENDERNESS. STRENGTH GRADED 3/5 X 6 SEC X 3 REPS BEFORE diminishing strength. - Goals Goal 1:: DECREASE C/O LOW BACK AND PELVIC PAIN Goal Time Frame: 6-8 Weeks Goal 2:: DECREASE URINARY LEAKAGE EPISODES TO 1 OR LESS PER DAY Goal Time Frame: 4-6 Weeks Goal 3:: PATIENT WILL HAVE INCREASED PELVIC FLOOR MUSCLE STRENGTH GRADE TO 5/5 Goal Time Frame: 6-8 Weeks Goal 4:: PATIENT WILL DEMONSTRATE 10 CONSISTENT AND CONSECUTIVE 10 SECOND PELVIC FLOOR MUSCLE CONTRACTIONS TO DEMONSTRATE IMPROVED PELVIC FLOOR ENDURANCE AND STRENGTH. Goal Time Frame: 6-8 Weeks Goal 5:: FLUID INTAKE OF ? BODY WEIGHT IN OUNCES PER DAY WITH 2/3 BEING WATER. Goal Time Frame: 2-4 Weeks Goal 6:: PATIENT WILL BE INDEP WITH A HEP/HOME INSTRUCTIONS FOR CONTINUED IMPROVEMENT ONCE FORMAL PHYSICAL THERAPY CONCLUDES. Goal Time Frame: 6-8 Weeks - Anticipated Interventions Patient/Client Instruction: Educate patient on: Condition, Plan of Care, Risk Factors For the Purpose of:: To improve self management Therapeutic Exercise to Include: Strength training, Endurance training, Body mechanics, Postural training, Flexibilty training, Neuromotor development, Biofeedback For the Purpose of:: To decrease pain, To increase ROM, To improve muscle performance and motor function, To increase tolerance to activity/condition/position, To improve ability of physical actions for home/community/work/leisure Manual Therapy Techniques to Include: Soft tissue mobilization For the Purpose of:: To decrease pain, To increase flexibility/ROM Thank you for the opportunity to evaluate your patient. For Medicare and Medicare HMO plans, please review the plan of care and approve it. It will need to be FAXED BACK to us at [phone] for Medicare purposes. For Medicare only, by signing this I certify the plan of care. Please let me know if there are questions or concerns regarding this plan of care. Physician Signature: Date:
== END 2022-02-11 19:00 | disposition home or self-care (01) ==
LOC: PT 08:30
PROVIDERS: PCP Student in an Organized Health Care Education/Training Program; Referring Provider Urology; Visit Provider Urology
DX: M99.05 Segmental and somatic dysfunction of pelvic region
CPT/HCPCS: 97162; 97530

== ENCOUNTER 2022-02-17 08:00 | Outpatient (RCR) | payer MEDICAID, SELFPAY ==
--- NOTE | 2022-02-17 09:00 | BH.SGPN.GN ---
Behaviors/Verbalizations/Mental Status: []Pt alert and oriented, casually dressed and groomed. Eye contact good. Motor activity appropriate. Speech within normal limits. Affect constricted, mood anxious. Thoughts linear, logical, no signs of hallucinations or delusions. Reviewed pt?s symptom tracker, no risk for suicidal ideation, plan, or intent as of 02/17/22 Client Response/Progress/Benefit: [] Pt's first day of IOP tx and was visibly anxious. Pt received several supportive comments from peers and was reminded that it gets easier each time pt comes to group. Pt declined to share in group today, but appeared to benefit from peers support. Pt will continue IOP tx to prevent decompensation, gain healthy coping skills, and improve daily functioning. Narrative Note: []
--- NOTE | 2022-02-17 10:10 | BH.SGPN.GN ---
Behaviors/Verbalizations/Mental Status: []Pt alert and oriented, casually dressed and appropriately groomed. Eye contact fair. Motor activity appropriate. Speech within normal limits. Affect constricted, mood anxious. Thoughts linear, logical, no signs of hallucinations or delusions. Client Response/Progress/Benefit: []Pt was a passive participant AEB providing no input, however appeared to listen to others and take notes. Listened in interactive group discussion on internal and external barriers to mental health progress. Pt chose to not share current reality, desired reality or her barriers to desired reality. Pt's first day in IOP and she expressed earlier in day being extremely anxious in group. Benefited from increased awareness of current barriers to progress as well as current/desired realities. Pt to continue IOP to improve daily functioning, increase healthy coping skills and prevent decompensation.
--- NOTE | 2022-02-18 09:10 | BH.SGPN.GN ---
Behaviors/Verbalizations/Mental Status: [] Eye contact is good. Motor activity is appropriate. Appearance is casual. Speech is Appropriate. Mood is anxious. Affect is congruent. Thoughts are linear and logical. No evidence of psychosis. Reviewed daily check in sheet and pt reports 1/5 for suicidal thoughts and 0/5 for intent. Client Response/Progress/Benefit: [] Pt participated at times during the group discussion. Attentive. Daily symptom tracker notes 4/5 for depression. Emotion for today is ?steve?. Her mental health win was ?getting here today?. Shared motivation struggles this AM. Stressors also include frustrations with her autistic child. Her check-in was minimal. Benefited from group support, encouragement, and feedback. Will continue in IOP to prevent decompensation/re-admission, maintain safety, and improve functioning. Narrative Note: []
--- NOTE | 2022-02-18 10:10 | BH.SGPN.GN ---
Behaviors/Verbalizations/Mental Status: []Eye contact is fair. Alert and oriented. Motor activity is appropriate. Appearance is casual. grooming is appropriate. Speech is Appropriate. Mood is dysthymic. Affect is constricted. Thoughts are linear and logical. No evidence of psychosis or hallucinations. Client Response/Progress/Benefit: []Client passive participate AEB providing no contributions, however did appear to listen attentively to others. The group identified barriers to managing emotions such as unable to identify the emotion, negative self-talk, catastrophizing, jumping to conclusions, personalizing, and reading other?s body language. During group activity, client mostly quiet. Client benefited from session to gain understanding on the importance of managing emotions to improve daily functioning. Client will continue IOP to maintain safety, improve distress tolerance, and prevent decompensation.
--- NOTE | 2022-02-18 11:19 | BH.SGPN.GN ---
Behaviors/Verbalizations/Mental Status: []Pt alert and oriented, casual appearance. Eye contact good. Motor activity appropriate. Speech within normal limits. Affect constricted, mood depressed and anxious. Thoughts linear, logical, no signs of hallucinations or delusions. Client Response/Progress/Benefit: []Pt engaged in session AEB pt listening attentively to peers and taking notes. Attentive during psychoeducation on 4 zones of regulation. Pt able to identify feelings and behaviors pt exhibits for each zone.? Pt identified coping skills one can use to support self in each zone. Pt stated belief that pt is in the yellow zone today as pt feels anxious, stressed, and agitated today. Pt reports spending time listening to music and journaling will help pt get out of the yellow zone today. Benefited from increased education on zones of regulation or stages of alertness for emotions and healthy coping skills to use for each zone. Pt will IOP tx to increase mood stability, reduce anxiety, and improve healthy habits. ? Narrative Note: []
--- NOTE | 2022-02-21 10:05 | BH.SGPN.GN ---
Behaviors/Verbalizations/Mental Status: [] Eye contact is good. Motor activity is appropriate. Appearance is casual. Speech is Appropriate. Mood is anxious. Affect is congruent. Thoughts are linear and logical. No evidence of psychosis. Client Response/Progress/Benefit: [] Pt participated at times during the group discussions. Participated during interactive discussion on defining conflict (internal/external) and possible benefits to conflict. Attentive during psychoeducation on conflict styles and engaged during small group activity in which peers identified the benefits and consequences to each conflict style. Pt identified that her primary conflict style is accommodating. Shared that she will give everything to others before asking for anything herself. Benefited from increased awareness of the impact of conflict styles in mental health. Will continue in IOP to prevent decompensation/re-admission, maintain safety, and increase healthy coping. Narrative Note: []
--- NOTE | 2022-02-21 11:05 | BH.SGPN.GN ---
Behaviors/Verbalizations/Mental Status: []Pt alert and oriented, casually dressed and groomed. Eye contact good. Motor activity appropriate. Speech within normal limits. Affect congruent, mood depressed. Thoughts linear, logical, no signs of hallucinations or delusions. Client Response/Progress/Benefit: []Pt engaged in session AEB contributing to discussion and engaging in activity. Pt did well to review current conflict style and its impact on mental health. Attentive and taking notes during discussion on strategies for more effectively managing conflict in personal life.? Pt participated in activity and did well to talk through choices with peers. Pt given handout on fair fighting rules and identified that they want to work on asking herself what she is upset about before addressing a conflict and writing down her thoughts. ?Appeared to benefit from gaining strategies to help pt better manage conflict. Will continue IOP tx to reduce suicidality, improve distress tolerance skills, and reduce use of unhealthy coping skills. ? Narrative Note: []
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
--- NOTE | 2022-02-21 13:09 | BH.DR.ITP ---
Initial Treatment Plan Patient Information Visit Information: ADMISSION DATE: EXPECTED LOS: 4-6 weeks Problems/Symptoms Problem #1:: Mood instability Symptom:: Sadness, lack of motivation, anhedonia, low energy, fatigue, guilt, hopelessness, worthlessness, passive thoughts of , intermittent suicidal ideation, self-harm thoughts and actions Problem #2:: Anxiety Symptom:: Worry, rumination, flashbacks, nightmares, avoidance
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
--- NOTE | 2022-02-23 09:00 | BH.NA ---
Physical Data - Vital Signs Pulse Rate: 98 Blood Pressure: 142/93 - Height/Weight Height: 1.63 m Weight:: 70.307 kg Weight in Pounds: 155.0 lbs Current Medication Compliance - Medication Compliance Do you take your medication as prescribed?: Yes Nutritional History - Appetite Nutritional Instructions:: If client shows signs of a swallowing problem, weight change of 10 pounds or more in the last month, or is on a diabetic diet, the physician will review and request a dietitian consult, as appropriate. All unintentional weight loss will be referred to the physician for decision on need for dietitian consult. Describe your appetite:: Good - Denies recent weight gain or loss. Functional Assessment - Sleep Pattern Describe any problems with sleeping: Client states she usually sleeps about 7-8 hours per night. - Activities Motor Activity:: Functional Sensory/Communication Assess - Vision Problems Do you have any vision problems?: Glasses - Communication Problems Do you have difficulty understanding what people are saying?: No Medical Problems/History - Respiratory Conditions Respiratory: Asthma - on several medications - Genitourinary Conditions Genitourinary: Other (See comments) - bladder prolapse - Hematologic Conditions Hematologic: Anemia - Gastrointestinal Conditions Gastrointestinal: Other (See comments) - IBS, GERD - Pain Assessment Do you have acute or chronic pain?: No - Family History Family History: Family History (Last Reviewed 12/28/21 @ 07:[address] Kiran Braga MD) Brother Asthma Mother Hypertension Heart disease Father Depression Heart disease Hyperlipidemia Hypertension Surgical History - Surgical History Have you had any surgeries? If so, list type and date:: Yes - D&C x2 Substance Abuse - Substance Abuse Please describe substance abuse in the last 30 days:: Client denies alcohol, tobacco or substance use. Client states she drinks 2-4 caffeinated drinks per day, stating when her anemia is bad she needs the energy to keep up with her kids. Mental Status Summary - Mental Status Significant Findings/Observations on Appearance and Mood:: Client is alert and oriented x 4. Client is casually groomed with good hygiene. Client is cooperative with assessment. Client makes good eye contact. Client's voice has normal rate and volume. Client makes logical associations and has normal processing. Client does laugh at times during conversation, at times inappropriately when talking about traumatic experiences. Client denies delusions/hallucinations. Client states she has had passive SI this day. Suicide Assessment - Suicidal Ideation Are you currently or have you been suicidal in the past?: Yes - client denies plan at this time, some passive SI this day Suicidal Intentional Rating Scale (SIRS): Current suicidal thoughts/No plan/Contracts for safety Physician Notification: If Active suicidal thoughts/Will not contract for safety is checked, contact physician and document in the Physician Notification section below. Assault History/Potential Past Psychiatric History - MH Treatment Hx Past Psychiatric Medications:: Client states she has been on many medications and does not remember the names of them Age of first mental health symptoms: Client states she can remember being depressed as early as first grade. Describe (age, circumstance, etc) any past hospitalizations: Client had many hospital stays as a teenager (36 hospital stays) for mental health. Client recently had a 25 day hospital stay at [facility] after a suicide attempt by tylenol overdose on 12/27/21. Five days after her discharge from [facility], she was again hospitalized at [facility] for suicidal ideation - this was about 2.5 weeks ago. Current providers for mental health treatment (counselor, psychiatrist, case checker, etc.): [facility] for counseling, has an appointment with Dr. Vargas at the end of this month for psychiatry Fall Risk Assessment - Age Age: Less than 60 - Mental Status Mental Status: Willing & able to ask for assistance when needed - Physical Status Physical Status: No problems - Impairments Impairments: None - Elimination Elimination: Continent AND independent - Gait or Balance Gait or Balance: Walks independently - Hx of Falls History of falls in the past 6 months: No known history - Medications/Substances Psychotropics:: Antidepressants, Antipsychotics, Antihistamines (e.g. Benadryl) Medications/substances used within the past 24 hours or ordered to administer: 3 or more of the medications/substances listed above - Total Score Total Points:: 2 RN Summary of Impressions - Impressions Recommendations: Include psychiatric and medical issues, treatment planning recommendations, and discharge planning needs. Impressions: Psychiatric Issues: 1. Borderline personality disorder. 2. Bipolar disorder, NOS (F31.9). 3. Generalized anxiety disorder. 4. PTSD. 5. Primary support and financial issues - Level of Care How do the client's current symptoms and functional deficits support need for this level of care?: Client was referred to [facility] after a recent suicide attempt 12/27/21 by tylenol overdose and two mental health hospitalizations after that. Client was in [facility] for 25 days after her suicide attempt and then a few days after her discharge was hospitalized at [facility] for a suicide plan. Client states she had a stillbirth in August 2021 and her relationship with her is not supportive which led to her suicide attempt. Client states she does have frequent SI, usually just passive but at times does think of a plan. Client states today she has had some passive SI. Client does have a history of self-harm in the form of cutting and she last cut herself a couple of days ago. IOP will promote gains and prevent further decompensation while providing social support and skills training.
--- NOTE | 2022-02-23 09:05 | BH.SGPN.GN ---
Behaviors/Verbalizations/Mental Status: []Pt eye contact fair, casually dressed, motor activity appropriate, speech normal rate and tone, mood anxious and dysthymic, constricted affect, thoughts linear and intact, no evidence of delusions or hallucinations. Reviewed daily check in sheet and no reports of suicidal ideations or intent. Client Response/Progress/Benefit: []Client responded well to session AEB listening attentively to others and sharing thoughts and feelings. Client stated mental health positive as getting to IOP this morning. Client stated additional positive as getting a new outfit for her comfort bear that she uses as a way to help her grief the loss of her baby. Client reported she has people in her life that don't support her way of grieving but she is doing it anyway because she finds it helpful. Client stated stressor is her biological family texting her mean things last night when she told them she wouldn't be going to their family Thanksgiving. Client reported she plans to go to a Thanksgiving gathering with her best friend and family. Client agreed it would be helpful to not listen to or respond to any voicemails/texts she gets from her biological family. Seemed to benefit from support of peers. Client to continue IOP to improve daily functioning, challenge distorted thoughts, and prevent decompensation. Narrative Note: []
[2022-02-23 09:27] VITALS: BP 142/93; PULSE 98
--- NOTE | 2022-02-23 11:20 | BH.COMM ---
Communication Note - Communication with Client Communication Note: Client admitted after her assessment with me to Nicole, her therapist in [facility], that she had cut her arm in [facility] parking lot prior to coming in. Nicole asked me to assess the cut. Area to left forearm was not bleeding, but several inch long laceration in the center of her forearm was not well approximated, exposing red tissue underneath. Laceration was also approximately 1-2 cm deep. Client denies pain. Discussed this with therapist who discussed with client about being seen in the ER due to laceration.
--- NOTE | 2022-02-23 14:33 | BH.MDN_ITS ---
Multi-Disciplinary Note - Note 45-min Individual Time Started:: 10:19 Date: 02/23/22 Purpose of session/treatment goals addressed:: Met with pt to complete a risk assessment and safety planning following increased scores on daily sx tracker and self-report of difficulties coping with current stressors this morning. Eye Contact:: Good Motor Activity:: Appropriate Appearance:: Casual Speech:: Appropriate Mood:: Anxious, Depressed Affect:: Other - incongruent AEB pt laughing and making jokes when discussing significant stressors and self-harming behaviors. Thoughts:: Linear, Logical, No evidence of hallucinations/delusions noted Staff Interventions:: completed risk assessment / safety planning Client Response:: Pt reported a 3.5/5 for suicidal ideations and a 2/5 for intent on symptom tracker this AM which is a significant change from prior scores. During process group she verbalized several recent stressors impacting her mental health and creating increased negative thoughts and feelings of helplessness. Reported the trigger as receiving several mean text messages from her relatives this morning. Pt shared she set a boundary and informed them that she and her immediate family would not be attending this year. Insight that her family is a major trauma trigger and setting this boundary was healthy. Noted struggling to cope with the associated guilt as well as her family?s their reactions to this boundary. Pt handed therapist an exacto knife from her bag, indicating that she had cut her forearm when feeling emotionally overwhelmed this morning. Reports this was a means of emotion release and not suicidal in nature, though did indicate she would not have cared if she had accidentally ?gone too far? when cutting. Denies active SI, plan, or intent upon furth assessment. Reports she does not want to continue to harm herself but does not know how else to cope. Pt showed therapist and program [employer] her laceration. Based on severity of wound, pt was advised to go to ED for further medical assessment which she is agreeable. Pt claims the blade she handed to therapist was the last one she had and denies any additional items she could use to self- harm. Pt does not feel she is a risk to self or others at this time and does not wish to seek inpatient psychiatric tx. Agreeable to meet with ED social sciences instructor for additional support as well. Future oriented and reports plans to spend the holiday with her children, best friend, and . Children are pt?s primary protective factor. Shared that being alone is her time of greatest risk and willing to safety plan so that pt is not alone until next scheduled IOP day, Monday02/25/22. Pt willing to call her friend Madeline who was agreeable to pick pt up from the ED following medical clearance and spend the remainder of the day today, as well as all day tomorrow with pt to ensure safety. Both pt and friend agreeable to go to local ED for immediate care should pt feel unable to keep self safe at any time. Pt will be staying with her friend until Monday and therefore will not have access to any potentially lethal means per safety plan established with pt and support. Therapist will follow-up with pt on Monday. Risks/Concerns:: Refer above. Denies active SI, plan, or intent at present. Does admit to survival ambivalence and feeling she is a burden. Pt self-harm this morning via laceration to forearm requiring medical attention to ensure no sutures are needed per recommendation of program [employer]. Pt denies this was done with suicidal intentions. Willing to dispose of razors. Able to contract for saf ety and willing to walk to ED for further medical assessment of laceration. Progress Toward Goals/Plan:: No progress noted. Pt has reported decompensation since 02/21/22 with primary trigger noted to be conflict with extended family and grief. Treatment team has been working on safety planning, encouragement, and crisis management coping skills with pt, josé miguel she is still new to IOP tx and therefore has not had much time to make significant gains. Pt struggles with anxiety as well which impedes tx participation to some extent as well. Reports struggling to remember to use crisis management skills discussed when experiencing her sx in real time. Did however make plans to spend time with a healthy support and receptive of safety planning which is positive progress. Due to potential medical complications of most recent self-harming episode, pt was walked over to the ER for further risk assessment and medical evaluation. Time Stopped:: 11:00
--- NOTE | 2022-02-25 09:05 | BH.SGPN.GN ---
Behaviors/Verbalizations/Mental Status: []Eye contact good, casually dressed, motor activity appropriate, speech normal rate and tone, mood anxious and determined, congruent affect, thoughts linear and logical, no evidence of delusions or hallucinations. Reviewed pt's symptom tracker, suicidal ideation within pt baseline, denies any current plan, or intent as of this date 02/25/22. Client Response/Progress/Benefit: []Pt responded well to session, providing supportive statements to peers. Pt reports feeling determined and anxious this morning as pt has a plan to confront her and set a firm boundary. Pt shared the importance of this boundary for pt and her children. Pt shared she has a good friend who is helping her set this boundary and providing emotional support. Pt stated she had a good Thanksgiving as pt spent time with her best friend, took a walk when stressed, and ignored text messages from toxic family members. Pt appeared to benefit from reflecting on her application of healthy coping skills. Progress noted in pt's problem-solving and report of using healthy coping skills. Pt will continue IOP tx to increase distress tolerance skills, improve mood stability, and reduce self-harm. Narrative Note: []
--- NOTE | 2022-02-25 10:10 | BH.SGPN.GN ---
Behaviors/Verbalizations/Mental Status: [] Eye contact is fair. Motor activity is appropriate. Appearance is casual. Speech is Appropriate. Mood is dysthymic. Affect is constricted. Thoughts are linear and logical. No evidence of psychosis. Client Response/Progress/Benefit: [] Pt was an active participant in group discussion. Attentive during psychoeducation on different types of anxiety disorders. Along with peers provided insight on the definition of anxiety as well as the impact of anxiety which include; poor sleep, not completing tasks, poor concentration, impacts relationships, impacts work, and decreases appetite. Pt identified her physical symptoms of anxiety which are muscle tension, feeling disconnected, and increased heart rate. Worked with peers to identify safety behaviors which included self-harm and pushing own needs down. Benefited from increased insight and awareness from group discussions. Pt to continue IOP to improve emotion regulation, improve confidence, and prevent decompensation.
--- NOTE | 2022-03-01 09:05 | BH.SGPN.GN ---
Behaviors/Verbalizations/Mental Status: [] Eye contact is good. Motor activity is appropriate. Appearance is casual. Speech is Appropriate. Mood is depressed. Affect is flat. Thoughts are linear and logical. No evidence of psychosis. Reviewed daily check in sheet and no reports of suicidal ideations. Client Response/Progress/Benefit: [] Pt was an active participant in group discussions. Attentive. 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 ?I did it?. Shared with the group that she ?kicked her out of the house?. She did not elaborate much regarding this and had an incongruent affect of smiling when she shared that the relationship was not healthy and was impacting her mental health and was trigger to recent decompensation. Benefited from group support, encouragement, and feedback. Will continue in IOP to maintain safety, prevent decompensation/re-admission, and improve functioning. Narrative Note: []
--- NOTE | 2022-03-01 10:00 | BH.SGPN.GN ---
Behaviors/Verbalizations/Mental Status: []Pt alert and oriented, casually dressed and groomed. Eye contact good. Motor activity appropriate. Speech within normal limits. Affect constricted, mood anxious and euthymic. Thoughts linear, logical, no signs of hallucinations or delusions. Client Response/Progress/Benefit: []Pt was an active participant AEB contributing to discussion, taking notes, and engaging in group activity. Connected with the topic of pitfalls and listened to group discussion on barriers that prevent from choosing a healthier path to mental wellness. Group worked together to identify examples of personal pitfalls which included; not setting boundaries, using unhealthy coping skills, and procrastination. Pt did well in the group activity, able to make connections to how lack of communication and awareness make it nearly impossible to overcome pitfalls. Pt shared wanting to quit due to anxiety, but pt was able to stay in the activity. Pt benefited from group as pt learned to better identify potential barriers to improving mental health symptoms. Pt will continue IOP tx to reduce the use of unhealthy coping skills, increase distress tolerance skills, and improve daily functioning. Narrative Note: []
--- NOTE | 2022-03-01 11:00 | BH.SGPN.GN ---
Behaviors/Verbalizations/Mental Status: []Pt alert and oriented, neatly dressed and groomed. Eye contact good. Motor activity appropriate. Speech within normal limits. Affect congruent, mood euthymic. Thoughts linear, logical, no signs of hallucinations or delusions. Client Response/Progress/Benefit: []Pt receptive of session, engaged throughout AEB pt actively listening and contributing to discussion, as well as taking notes.? Pt participated in the experiential activity and did well to communicate ideas with peers and manage emotions. Pt and group processed how the emotions and perspective of the group impacted the activity. Group worked together to identify different coping skills to help manage pitfalls. Pt identified pitfalls they struggle with such as staying with toxic people, self-harm, and keeping items to harm herself ?just in case?. ?Pt plans to work on these pitfalls by following a safety plan and getting rid of items when not in crisis and more consistently practicing healthy coping skills. Benefited from identifying personal pitfalls and strategies to overcome these pitfalls. Will continue IOP tx to promote use of healthy coping skills, reduce self-harm, and improve distress tolerance skills. ? Narrative Note: []
--- NOTE | 2022-03-02 09:00 | BH.SGPN.GN ---
Behaviors/Verbalizations/Mental Status: []Eye contact good, casually dressed, motor activity appropriate, speech normal rate and tone, mood anxious and dysthymic, congruent affect, thoughts linear and intact, no evidence of delusions or hallucinations. Reviewed pt's symptom tracker, suicidal ideation within pt baseline, denies any current plan, or intent as of this date 03/02/22. Client Response/Progress/Benefit: []Pt responded well to session, attentive and willing to share with the group. Pt reports feeling ?disconnected this morning. Expressed this may in part be due to still working to cope with her depression and change her environment to be healthier. Shared this means making several changes in her perspective and routine which has been an adjustment as well. Identified current mental health wins as getting to group and her kids ready this morning without any meltdowns. Additional win noted as making strides in consistently keeping an accomplishment log, sharing that she has begun to se small shifts in her perspective as a result. Pt appeared to benefit from supportive feedback and reflecting on mental health wins, as well as skills she can use to increase positive self-talk. Pt to continue IOP tx to further improve healthy boundaries, coping implementation, improve mood stability, and prevent decompensation. Narrative Note: []
--- NOTE | 2022-03-02 11:10 | BH.SGPN.GN ---
Behaviors/Verbalizations/Mental Status: []Client alert and oriented, casually dressed and groomed. Eye contact fair. Motor activity appropriate. Speech within normal limits. Affect constricted, mood dysthymic. Thoughts linear, logical, no signs of hallucinations or delusions. Client Response/Progress/Benefit: []Client responded well to session AEB client listening attentively to others and providing input during group discussion on the pay offs and costs of the different communication styles. Client recognizes her needs don't get met when uses passive communication style. Client used more passive communication during activity, difficulty communicating her needs throughout activity. Attentive during psychoeducation on assertive communication and I statements. Client seemed to benefit from increasing awareness of healthy strategies to improve communication. Client will continue IOP tx to stabilize moods, challenge negative thinking, and prevent decompensation. Narrative Note: []
--- NOTE | 2022-03-02 15:31 | BH.MDN ---
Multi-Disciplinary Note - Note 45-min Individual Time Started:: 10:28 Date: 03/02/22 Purpose of session/treatment goals addressed:: Met with pt to discuss progress and current symptoms. Another purpose was to address tx goals #1 and #2, as well as create a goal for maintaining recently established boundaries. Eye Contact:: Good Motor Activity:: Appropriate, Restless Appearance:: Casual Speech:: Appropriate Mood:: Anxious, Depressed Affect:: Other - incongruent with discussion - pt often uses humor or inappropriate smiling as a defense mechanism Thoughts:: Linear, Logical, No evidence of hallucinations/delusions noted Staff Interventions:: thought challenging, motivational interviewing, psychoeducation on: - assertive communication, strengths perspective, goal setting - created a small boundary goal Client Response:: Pt reports having a mostly positive Thanksgiving holiday; however, continues to feel overwhelmed and unsupported in her relationship. Reports making the decision to officially kick her out of the house as she feels the relationship has been impeding pt?s ability to make progress with her mental health. Pt explained that she had thought this out and planned for her best friend to be present as her ?s mood have been unpredictable in the past and she was unsure of how he would respond. Described feeling several mixed emotions associated with her decision, but ultimately feels it was necessary. Went on to note however that her has been over every night since to visit the kids and she feels too guilty to tell him she is not alright with it. Open to a discussion on the importance of having some time to herself to process, care for her own mental health needs, and determine what steps she would like to take moving forward. Open to starting small with establishing the boundary of not allowing her to visit one night each week so that pt can have a dight to herself. Initially hesitant, but able to challenge distortions and inappropriate guilt associate. Pt and therapist spent remainder of session discussing ways she could communicate her boundaries with her to better ensure she is able to get her mental health needs met as well. Risks/Concerns:: Denies active SI, plan, or intent. Continues to experience chronic, passive thoughts of however reports this has not escalated to SI or intent. Future-oriented. Protective factors reported. Urges to self-harm, but denies doing so since last recorded. Does not present as imminent danger to herself or others. Contracts for safety. Aware of crisis numbers and encouraged to go to ER if suicidal ideations occur. Progress Toward Goals/Plan:: Progress noted. Pt reports taking steps to set a boundary with her as she feels the relationship is toxic and impacting her mental health. Reports feeling proud but also guilty, which in some ways in reinforcing anxiety. Pt is however utilizing skills to manage stress, anxiety, depression, as well long-standing urges to self-harm. Denies engaging is any self-harming behaviors since 02/23. Reports utilizing healthy supports as well. Reports ongoing difficulties in coping with her emotions and in the moment stressors which will continue to be addressed in tx. Will continue in IOP to maintain safety, increase healthy coping, and to prevent decompensation. Time Stopped:: 11:07
--- NOTE | 2022-03-09 15:33 | BH.MDN ---
Multi-Disciplinary Note - Note 45-min Individual Time Started:: 12:05 Date: 03/09/22 Purpose of session/treatment goals addressed:: Met with pt to discuss progress and current symptoms. Another purpose was to address tx goals #1 and #2. Eye Contact:: Good Motor Activity:: Appropriate Appearance:: Casual Speech:: Appropriate Mood:: Anxious Affect:: Congruent Thoughts:: Linear, Logical, No evidence of hallucinations/delusions noted Staff Interventions:: thought challenging - specifically inappropriate guilt and use of personalization, CBT techniques, strengths perspective, goal setting - created goal to Client Response:: Pt reports following through with plans to attend an event at the hospital for parents who have lost infants. Shared it was less emotionally difficult that she had anticipated and ultimately felt good to be able to grieve with others who have gone through similar losses. Went on to share not only following through with her homework to set a boundary, but went beyond the original goal of taking one day away from her . Pt explained communicating a need for more self-care time with her and told him that would not be able to visit anytime her wants but that they needed to create a more consistent schedule that they are both comfortable with. Share this allowed for her to have 2-3 days with just her kids in the home and found she was much less on edge and upset as a result. Pt discussed feeling confused and ?out of control? as one hand she knows she is healthier on her own, but on the other she loves her partner and does not want to hurt him. Expressed emotional fatigue as she wishes her would follow through with making healthy changes for himself. Able to recognize this as out of her control but feels responsible for him. Processed further with therapist and pt identified that creating a list of what she wants, what she needs from her partner, and what he is able to give may help provide some clarity for her. Went on to indicate plans to incorporate self-care into this via playing the keyboard as well. Risks/Concerns:: Denies active SI, plan, or intent. Continues to experience chronic, passive thoughts of however reports this has not escalated to SI or intent. Future-oriented. Protective factors reported. Urges to self-harm, but denies doing so since 02/23. Does not present as imminent danger to herself or others. Contracts for safety. Progress Toward Goals/Plan:: Progress noted. Pt reports taking steps to set a boundary with her as she feels the relationship is toxic and impacting her mental health. Reports feeling proud but also guilty, which in some ways in reinforcing anxiety. Pt is however utilizing skills to manage stress, anxiety, depression, as well long-standing urges to self-harm. Denies engaging is any self-harming behaviors since 02/23. Reports utilizing healthy supports as well. Reports ongoing difficulties in coping with her emotions and in the moment stressors which will continue to be addressed in tx. Will continue in IOP to maintain safety, increase healthy coping, and to prevent decompensation. Time Stopped:: 12:48
== END 2022-03-02 23:59 ==
LOC: BHIOP 08:00
PROVIDERS: PCP Student in an Organized Health Care Education/Training Program; Referring Provider Psychiatry & Neurology Psychiatry; Visit Provider Psychiatry & Neurology Psychiatry
DX: F60.3 Borderline personality disorder (principal); F31.9 Bipolar disorder, unspecified; F41.1 Generalized anxiety disorder; F43.10 Post-traumatic stress disorder, unspecified
CPT/HCPCS: 90792; H2012; H2020; S9480; T1002; 90834; 90837

== ENCOUNTER 2022-02-23 11:23 | Emergency (ER) | payer MEDICAID, SELFPAY ==
[2022-02-23 11:24] VITALS: BP 113/89; PULSE 91; RESP 16; TEMP 36.6; O2SAT 99; BMI 26.6
--- NOTE | 2022-02-23 12:09 | EDS_ITS ---
HPI <SAI Arambula - Last Filed: 02/23/22 18:27> History of Present Illness Chief Complaint: Laceration Narrative Narrative: Patient presents today with a large and superficial laceration to her left ventral forearm. She states she cut herself this morning with a scalpel due to feeling very stressed out from different family issues and because this is the first holiday without her baby after having a stillborn in August. She states she is receiving intensive outpatient therapy here in [place] and was brought over here by them this morning to get the wound treated. She denies suicidal and homicidal ideations. She states she was not trying to kill herself today. Patient's last tetanus shot was in December 2021. [facility] <SAI Arambula - Last Filed: 02/23/22 18:27> [facility] Medical History Allergic rhinitis Anxiety Asthma Bipolar disorder, unspecified Borderline personality disorder Chronic cough Depression Gastric reflux Generalized anxiety disorder History of IBS History of steroid therapy IBS (irritable bowel syndrome) Low-lying placenta in second trimester Non-smoker Posterior auricular lymphadenopathy PTSD (post-traumatic stress disorder) Suicide attempt Vestibular migraine Wears contact lenses Wears glasses Home Medications albuterol sulfate 90 mcg/actuation aerosol inhaler 1 puff inhalation Q4H PRN PRN Asthma 08/17/17 [History Last Taken 08/11/17] epinephrine 0.3 mg/0.3 mL injection, auto-injector 0.3 mg IM DAILY PRN Allergies 08/17/17 [History Last Taken Unknown] fexofenadine 180 mg tablet 180 mg PO DAILY Check with primary doctor 06/25/19 [History Last Taken Unknown] ascorbic acid (vitamin C) 500 mg tablet,extended release (Vitamin C ER) 500 mg PO DAILY Check with primary doctor 06/26/19 [History Last Taken Unknown] coenzyme [id number] E 100 mg-100 unit capsule 1 cap PO DAILY Check with primary doctor 06/26/19 [History Last Taken Unknown] pantoprazole 40 mg tablet,delayed release 40 mg PO BID Check with primary doctor 02/08/21 [History Last Taken 02/15/21 07:00] ipratropium bromide 21 mcg (0.03 %) nasal spray 2 spray intranasal BID Check with primary doctor 12/09/21 [History Last Taken Unknown] pyridoxine (vitamin B6) 500 mg tablet 500 mg PO DAILY Check with primary doctor 04/05/21 [History Last Taken Unknown] fluticasone 250 mcg-salmeterol 50 mcg/dose blistr powdr for inhalation (Advair Diskus) 1 inh inhalation BID Check with primary doctor 08/03/21 [History Last Taken Unknown] tiotropium bromide 1.25 mcg/actuation mist for inhalation (Spiriva Respimat) 2 puff inhalation DAILY ASTHMA 08/03/21 [History Last Taken Unknown] fluoxetine 20 mg tablet 40 mg PO DAILY Check with primary doctor 12/27/21 [History Last Taken Unknown] prazosin 1 mg capsule 1 mg PO QHS 01/28/22 [History Last Taken Unknown] quetiapine 100 mg tablet 100 mg PO QHS 01/28/22 [History Last Taken Unknown] ferrous sulfate 325 mg (65 mg iron) tablet 325 mg PO BID 02/23/22 [History Last Taken Unknown] hydroxyzine pamoate 50 mg capsule (Vistaril) 50 mg PO 4X/DAY PRN Anxiety 02/23/22 [History Last Taken Unknown] Allergy/AdvReac Type Severity Reaction Status Date / Time COVID-19 vaccine, mRNA, Allergy Severe Anaphylaxis Verified 02/23/22 11:28 [id number], bee venom protein (honey bee) Allergy Anaphylaxis Verified 02/23/22 11:28 omalizumab [From Xolair] Allergy Anaphylaxis Verified 02/23/22 11:28 prochlorperazine edisylate Allergy Swelling Verified 02/23/22 11:28 [From Compazine] prochlorperazine maleate Allergy Swelling Verified 02/23/22 11:28 [From Compazine] Family History Brother Asthma Mother Hypertension Heart disease Father Depression Heart disease Hyperlipidemia Hypertension Surgical History Hx of colonoscopy Hx of dilation and curettage Social History household members: family current occupational status: unemployed pets and animals: Yes Smoking Status: Never smoker second hand exposure: No alcohol intake: never substance use type: does not use seatbelt use: always do you feel safe at home: Yes additional social history: trans male, - Hmuza REESE <SAI Arambula - Last Filed: 02/23/22 18:27> ROS ED Constitutional Constitutional ED: Denies chills or fever(s) Eyes Eyes: Denies change in vision ENT ENT ED: Denies rhinorrhea or sore throat Cardiovascular Cardiovascular: Denies chest pain, palpitations or racing heartbeat Respiratory/Chest Respiratory/Chest: Denies cough, dyspnea, shortness of breath at rest or shortness of breath with exertion Gastrointestinal Gastrointestinal: Denies abdominal pain, diarrhea, nausea or vomiting Musculoskeletal Musculoskeletal: Denies myalgias Integumentary Reports laceration; Denies abscess or rash Neurologic Neurologic: Denies headache(s) Psychiatric Psychiatric: Reports anxiety and depression; Denies homicidal ideation, suicidal ideation or suicidal thoughts EXAM <SAI Arambula - Last Filed: 02/23/22 18:27> Physical Exam Const Vital Signs: 02/23/22 11:24 02/23/22 13:56 Temperature 97.8 F Temperature Source Temporal Pulse Rate 91 76 Respiratory Rate 16 14 Blood Pressure 113/89 H 120/83 H Blood Pressure Mean 97 Pulse Ox 99 97 Oxygen Delivery Method Room Air Positive well nourished and well developed General Appearance ED: well developed HEENT atraumatic Eyes PERRL and EOMs intact bilaterally Neck full ROM Cardio regular rhythm and no murmurs Rate: regular rate GI non-tender, non-distended and no masses Palpation: soft Extremity full ROM Extremity Narrative: 5 inch superficial linear laceration to the left ventral forearm. The l aceration is over an existing keloids scar. There is no bleeding. Radial pulses intact, good capillary refill, sensation intact. Neuro oriented x3, CN's II-XII intact bilaterally, moves all extremities, no focal motor deficits, no sensory deficits noted and gait normal Sensorium / Orientation: alert Psych mental status grossly normal and thought process normal Psych Narrative: Patient is calm and cooperative. Appearance: grossly normal Attitude: calm Activity / Motor Behavior: appropriate eye contact Speech: normal speech Thought Process: normal thought process Thought Content: normal thought content Attention / Concentration: attention grossly intact Skin Skin Narrative: See extremity. <Dr. Estee Young MD - Last Filed: 02/23/22 16:06> Physical Exam Const Vital Signs: 02/23/22 11:24 02/23/22 13:56 Temperature 97.8 F Temperature Source Temporal Pulse Rate 91 76 Respiratory Rate 16 14 Blood Pressure 113/89 H 120/83 H Blood Pressure Mean 97 Pulse Ox 99 97 Oxygen Delivery Method Room Air [facility] <SAI Arambula - Last Filed: 02/23/22 18:27> [facility] Narrative Medical decision making narrative: no sutures/arabella/dermabond needed due to the laceration being so superficial. There is no bleeding. The wound has been cleaned with chlorhexidine, bacitracin was applied, and a dressing was applied. She was just at a session this morning with her IOP treatment and when they saw the laceration they wanted her to come here to get it treated. The IOP provider that patient closely follows up with has called and states she does not feel patient needs psychiatric placement. The manager social media here has spoke to patient and feels she can safely discharge home because she is following up on Monday with her IOP treatment. Also, her best friend is in the room with her and states she will be with her the entire time today, tomorrow, and until she goes to her IOP treatment Monday. Because she is denying suicidal ideation and will not be alone I feel comfortable with her discharging home and following up with her IOP treatment Monday morning. Patient is comfortable with plan. Lab Data Attestation: I reviewed the patient's lab results. Labs: Laboratory Results - last 24 hr 02/23/22 02/23/22 02/23/22 12:30 12:30 12:30 WBC 8.9 RBC 4.18 L Hgb 13.3 Hct 40.0 MCV 95.7 MCH 31.8 MCHC 33.3 RDW Std Deviation 42.4 RDW Coeff of Win 12.0 Plt Count 269 MPV 10.8 Immature Gran % (Auto) 0.300 Neut % (Auto) 76.7 H Lymph % (Auto) 14.8 L Mcpherson % (Auto) 7.5 Eos % (Auto) 0.3 Baso % (Auto) 0.4 Absolute Neuts (auto) 6.8 Absolute Lymphs (auto) 1.32 Nucleated RBC % 0 Sodium 138 Potassium 3.6 Chloride 103 Carbon Dioxide 28.0 Anion Gap 7 BUN 6 L Creatinine 0.82 Estim Creat Clear Calc 88.99 Est GFR (MDRD) Af Amer 108 Est GFR (MDRD) Non-Af 89 BUN/Creatinine Ratio 7.4 L Glucose 96 Calcium 8.7 Serum , Qual Urine Opiates Screen Urine Methadone Screen Ur Barbiturates Screen Ur Phencyclidine Scrn Ur Amphetamines Screen MDMA (Ecstasy) Screen U Benzodiazepines Scrn Urine Cocaine Screen U Cannabinoids Screen Ur Drug Screen Comment Ethyl Alcohol < 3.0 02/23/22 02/23/22 12:30 13:01 WBC RBC Hgb Hct MCV MCH MCHC RDW Std Deviation RDW Coeff of Win Plt Count MPV Immature Gran % (Auto) Neut % (Auto) Lymph % (Auto) Mcpherson % (Auto) Eos % (Auto) Baso % (Auto) Absolute Neuts (auto) Absolute Lymphs (auto) Nucleated RBC % Sodium Potassium Chloride Carbon Dioxide Anion Gap BUN Creatinine Estim Creat Clear Calc Est GFR (MDRD) Af Amer Est GFR (MDRD) Non-Af BUN/Creatinine Ratio Glucose Calcium Serum , Qual NEGATIVE Urine Opiates Screen NEGATIVE Urine Methadone Screen NEGATIVE Ur Barbiturates Screen NEGATIVE Ur Phencyclidine Scrn NEGATIVE Ur Amphetamines Screen NEGATIVE MDMA (Ecstasy) Screen NEGATIVE U Benzodiazepines Scrn NEGATIVE Urine Cocaine Screen NEGATIVE U Cannabinoids Screen NEGATIVE Ur Drug Screen Comment Ethyl Alcohol <Dr. Estee Young MD - Last Filed: 02/23/22 16:06> [facility] Lab Data Labs: Laboratory Results - last 24 hr 02/23/22 02/23/22 02/23/22 12:30 12:30 12:30 WBC 8.9 RBC 4.18 L Hgb 13.3 Hct 40.0 MCV 95.7 MCH 31.8 MCHC 33.3 RDW Std Deviation 42.4 RDW Coeff of Win 12.0 Plt Count 269 MPV 10.8 Immature Gran % (Auto) 0.300 Neut % (Auto) 76.7 H Lymph % (Auto) 14.8 L Mcpherson % (Auto) 7.5 Eos % (Auto) 0.3 Baso % (Auto) 0.4 Absolute Neuts (auto) 6.8 Absolute Lymphs (auto) 1.32 Nucleated RBC % 0 Sodium 138 Potassium 3.6 Chloride 103 Carbon Dioxide 28.0 Anion Gap 7 BUN 6 L Creatinine 0.82 Estim Creat Clear Calc 88.99 Est GFR (MDRD) Af Amer 108 Est GFR (MDRD) Non-Af 89 BUN/Creatinine Ratio 7.4 L Glucose 96 Calcium 8.7 Serum , Qual Urine Opiates Screen Urine Methadone Screen Ur Barbiturates Screen Ur Phencyclidine Scrn Ur Amphetamines Screen MDMA (Ecstasy) Screen U Benzodiazepines Scrn Urine Cocaine Screen U Cannabinoids Screen Ur Drug Screen Comment Ethyl Alcohol < 3.0 02/23/22 02/23/22 12:30 13:01 WBC RBC Hgb Hct MCV MCH MCHC RDW Std Deviation RDW Coeff of Win Plt Count MPV Immature Gran % (Auto) Neut % (Auto) Lymph % (Auto) Mcpherson % (Auto) Eos % (Auto) Baso % (Auto) Absolute Neuts (auto) Absolute Lymphs (auto) Nucleated RBC % Sodium Potassium Chloride Carbon Dioxide Anion Gap BUN Creatinine Estim Creat Clear Calc Est GFR (MDRD) Af Amer Est GFR (MDRD) Non-Af BUN/Creatinine Ratio Glucose Calcium Serum , Qual NEGATIVE Urine Opiates Screen NEGATIVE Urine Methadone Screen NEGATIVE Ur Barbiturates Screen NEGATIVE Ur Phencyclidine Scrn NEGATIVE Ur Amphetamines Screen NEGATIVE MDMA (Ecstasy) Screen NEGATIVE U Benzodiazepines Scrn NEGATIVE Urine Cocaine Screen NEGATIVE U Cannabinoids Screen NEGATIVE Ur Drug Screen Comment Ethyl Alcohol Treatment and Re-Evaluation Narrative: Patient seen and evaluated with LELA. I personally interviewed and examined the patient. I was involved in all aspects of patient's orders, interpretation of results, and treatment. Patient presents with self-inflicted laceration to the left forearm. She was brought over from the intensive outpatient therapy program. She tells me that she cut her left forearm this morning with a razor in an attempt to hurt herself. Patient sitting upright in bed no acute distress. She is alert and talkative. She has good eye contact. Head and neck examination unremarkable. Heart is regular rate and rhythm. Lung sounds are clear. Abdomen is soft and nontender. Left forearm examination reveals old scar tissue from prior lacerations. She is a large keloid scar down the length of her volar forearm. Over this keloid scar she cut herself today with a razor. Laceration measures 11 cm. Distal neuro exam is unremarkable. Wound is superficial and over prior keloid scar. It is not able to be pulled together. This will be cleansed and dressed and allowed to heal by secondary intention. Lab work for psychiatric clearance was obtained. This is unremarkable. Patient was evaluated by social work. At this time she denies suicidal homicidal ideation. She is a friend with her at bedside who will be with her between the time of discharge and her appointment with psychiatry on Monday morning. Return instructions are given. Discharge Plan Triage Chief Complaint: Laceration Other Complaint: Suture Remv ED Midlevel Provider: Saranya Santos ED Provider: Estee Young Dx/Rx/DC Orders Clinical Impression: Depression, Intentional self-harm, Laceration Instructions: Depression: Tips to Help Yourself, ED Laceration Extremity Prescriptions: No Action fexofenadine 180 mg tablet 180 mg PO DAILY ascorbic acid (vitamin C) [Vitamin C] 500 mg tablet extended release 500 mg PO DAILY coenzyme [id number] E 100 mg-100 unit capsule 100-100 mg-unit capsule 1 cap PO DAILY ipratropium bromide 21 mcg (0.03 %) spray,non-aerosol 2 spray intranasal BID Rx Instructions: administer into each nostril pyridoxine (vitamin B6) 500 mg tablet 500 mg PO DAILY epinephrine 0.3 MG syringe 0.3 mg IM DAILY PRN (Reason: Allergies) albuterol sulfate 1 INHALER inhaler 1 puff inhalation Q4H PRN PRN (Reason: Asthma) pantoprazole 40 mg tablet,delayed release (DR/EC) 40 mg PO BID fluticasone propion-salmeterol [Advair Diskus] 250-50 mcg/dose blister with device 1 inh inhalation BID Spiriva Respimat 1.25 mcg/actuation mist 2 puff inhalation DAILY fluoxetine 20 mg tablet 40 mg PO DAILY prazosin 1 mg capsule 1 mg PO QHS Label Comments: TAKE 1 CAPSULE BY MOUTH AT BEDTIME quetiapine 100 mg tablet 100 mg PO QHS Label Comments: TAKE 1 TABLET BY MOUTH AT BEDTIME ferrous sulfate 325 mg (65 mg iron) Tablet 325 mg PO BID hydroxyzine pamoate [Vistaril] 50 mg Capsule 50 mg PO 4X/DAY PRN (Reason: Anxiety) Primary Care Provider: Evelio Hernandez Referrals: Evelio Hernandez DO [Primary Care Provider] - Activity Restrictions/Additional Instructions: Please return if you develop any suicidal ideations or thoughts of harming yourself. Disposition Disposition: Home, Self Care Discharge Date/Time: 02/23/22 13:57
[2022-02-23 12:52] LABS: Absolute Lymphocyte Count 1.32 X10^3/uL (0.83-4.51); Absolute Neutrophil Count 6.8 X10^3/uL (2.0-7.7); Basophil# 0.04 X10^3/uL; Basophil% 0.4 % (0-1); Eosinophil# 0.03 X10^3/uL; Eosinophils% 0.3 % (0-5); Hemoglobin 13.3 g/dL (12.0-15.0); Lymphocyte # 1.32 X10^3/ul (0.83-4.51); Lymphocyte % 14.8 % (19-41); Mean Corp Hgb Conc 33.3 g/dL (32-36); Mean Corpuscular Hgb 31.8 pg (27.0-32.0); Mean Corpuscular Volume 95.7 fL (81-99); Mean Platelet Vol. 10.8 fl (6.2-12.0); Monocyte# 0.67 X10^3/uL; Monocyte% 7.5 % (0-10); NRBC Flagged by Analyzer 0 % (0-5); Neutrophil # 6.82 X10^3/uL (2.7-7.7); Neutrophil % 76.7 % (47-70); Platelet Count 269 K/mm3 (150-450); RBC Distribution Width SD 42.4 fl (35.1-43.9); Red Blood Count 4.18 M/mm3 (4.2-5.4); White Blood Count 8.9 K/mm3 (4.4-11.0)
[2022-02-23 12:59] LABS: Anion Gap 7 (5-15); BUN 6 mg/dL (7-18); BUN/Creat Ratio 7.4 RATIO (10-20); Calcium,Total 8.7 mg/dL (8.5-10.1); Chloride 103 mmol/L (98-107); Creatinine, Serum 0.82 mg/dL (0.55-1.02); EST Glomerular Filtration Rate 89 mL/min (>60); Est Glom Filt Rate - Afr Amer 108 mL/min (>60); Estimated Creatinine Clearance 88.99 ml/min; Glucose 96 mg/dL (74-106); Potassium 3.6 mmol/L (3.5-5.1); Sodium Level 138 mmol/L (136-145)
[2022-02-23 13:10] LABS: Internal QC Validated? YES +Cl - CLEAR BKGD; Pregnancy, Serum, hCG Quali. NEGATIVE Negative
[2022-02-23 13:13] LABS: Alcohol, Blood (Medical)-Serum < 3.0 mg/dL
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
[2022-02-23 13:25] LABS: Amphetamine Urine VISTA NEGATIVE (<1000 ng/mL); Barbiturate Urine VISTA NEGATIVE (< 200 ng/mL); Benzodiazepine Urine VISTA NEGATIVE (< 200 ng/mL); Cocaine Urine VISTA NEGATIVE (< 300 ng/mL); Ecstacy Urine VISTA NEGATIVE (< 500 ng/mL); Methadone Urine VISTA NEGATIVE (< 300 ng/mL); PCP Urine VISTA NEGATIVE (< 25 ng/mL); THC Urine VISTA NEGATIVE (< 50 ng/mL); Vista UDS pH Range 7
[2022-02-23 13:56] VITALS: BP 120/83; PULSE 76; RESP 14; O2SAT 97
== END 2022-02-23 13:57 | disposition home or self-care (01) ==
PROVIDERS: Physician Assistant; Emergency Provider Emergency Medicine; PCP Student in an Organized Health Care Education/Training Program; Visit Provider Emergency Medicine
DX: S51.812A Laceration without foreign body of left forearm, initial encounter (principal); X78.8XXA Intentional self-harm by other sharp object, initial encounter; R45.851 Suicidal ideations; F32.A Depression, unspecified; L91.0 Hypertrophic scar; F41.9 Anxiety disorder, unspecified; Z20.822 Contact with and (suspected) exposure to COVID-19
CPT/HCPCS: 80048; 80307; 82077; 84703; 85025; 87811; 99282

== ENCOUNTER 2022-03-03 08:23 | Outpatient (RCR) | payer MEDICAID, SELFPAY ==
[2022-03-03 00:43] VITALS: BP 142/93; PULSE 98
--- NOTE | 2022-03-04 09:00 | BH.SGPN.GN ---
Behaviors/Verbalizations/Mental Status: []Pt alert and oriented, neatly dressed and groomed. Eye contact good. Motor activity appropriate. Speech within normal limits. Affect congruent, mood euthymic and anxious. Thoughts linear, logical, no signs of hallucinations or delusions. Reviewed pt?s symptom tracker, no risk for suicidal ideation, plan, or intent as of 03/04/22 Client Response/Progress/Benefit: []Pt responded well to session, attentive and receptive to feedback. Pt reports feeling excited this morning as pt gets to make an ornament tonight in memory of her daughter. Pt received other ideas from peers on ways to honor her daughter's memory. Pt reports following through with recent goals and she is trying to set boundaries with her . Pt stated her has not been following these boundaries, which has been adding stress and making pt want to return to old ways. Pt received feedback from peers on reinforcing boundaries and praise on her resilience. Pt appeared to benefit from group support. Pt will continue IOP tx to reinforce healthy coping skills, increase distress tolerance skills, and improve mood stability. Narrative Note: []
--- NOTE | 2022-03-04 10:15 | BH.SGPN.GN ---
Behaviors/Verbalizations/Mental Status: [] Eye contact is good. Motor activity is appropriate. Appearance is casual. Speech is Appropriate. Mood is euthymic. Affect is congruent. Thoughts are linear and logical. No evidence of psychosis. Client Response/Progress/Benefit: [] Pt was an active participant in group discussions and activities. Attentive during psychoeducation. Pt participated during interactive discussion in which the group defined self-care and discussed its benefits. Worked with peers to identify myths related to self-care which included; Self-care is expensive and lavish, self-care is just personal hygiene, self-care means I'm not being productive, self-care should be fun, self-care is too time consuming. Pt participated in small groups where they worked to bust these self-care myths. Pt did well to relate experiential activity to the topic of self-care and its benefit to mental health. Benefited from increased awareness of self-care, its benefits, and the consequences of not utilizing self-care strategies. Will continue in IOP to prevent decompensation/re-admission, maintain safety, and increase healthy coping skills. Narrative Note: []
--- NOTE | 2022-03-04 11:15 | BH.SGPN.GN ---
Behaviors/Verbalizations/Mental Status: []Pt alert and oriented, casually dressed and groomed. Eye contact good. Motor activity appropriate. Speech within normal limits. Affect congruent, mood anxious and dysthymic. Thoughts linear, logical, no signs of hallucinations or delusions. Client Response/Progress/Benefit: []Pt engaged participant AEB completing self-assessment worksheet and providing some input throughout discussion. Participated in group discussion on the various areas of self-care. Pt completed worksheet identifying current self-care practices and what self-care activities pt wants to start using. Pt selected financial self-care to begin practicing more consistently. Pt plans to do this by challenging herself to begin reaching out to her supports for help. Appeared to benefit from completing the self-care evaluation and gaining insights into current self-care practices, as well as identifying areas in which she would like to improve upon. Will continue IOP tx to prevent decompensation, improve boundaries with supports, and improve ability to maintain mood stability. Narrative Note: []
--- NOTE | 2022-03-07 09:01 | BH.SGPN.GN ---
Behaviors/Verbalizations/Mental Status: []Pt eye contact good, casually dressed, motor activity appropriate, speech normal rate and tone, mood depressed and anxious, constricted affect, thoughts linear and intact, no evidence of delusions or hallucinations. Per daily symptom tracker reports 1/5, with 5 being severe, for suicidal thoughts and a 0/5 for suicidal intent. This is below pt's baseline. Does not appear to be imminent risk to harm self or others. Client Response/Progress/Benefit: []Pt responded well to session AEB listening attentively to others and sharing thoughts and feelings. Pt reported mental health positive as going to an event at the hospital to make an ornament in memory of her daughter. Pt stated it was nice to be at an event to talk with others that had a similar loss to her. Pt reported additional mental health positive as cleaning her house and doing her laundry even though she wanted to do nothing. Pt stated she reminded herself if she didn't clean then it would stack up and continue to not want to clean. Pt reported current stressor as trying to rebuild relationship with , but worried she is going to let him back into her life too early and repeat the cycle. Pt seemed to benefit from support from peers. Pt to continue IOP to continue use of healthy coping, challenge negative thinking, and prevent decompensation. Narrative Note: []
--- NOTE | 2022-03-07 10:03 | BH.SGPN.GN ---
Behaviors/Verbalizations/Mental Status: [] Eye contact is good. Motor activity is appropriate. Appearance is casual. Speech is Appropriate. Mood is euthymic. Affect is congruent. Thoughts are linear and logical. No evidence of psychosis. Client Response/Progress/Benefit: [] Client was an attentive during interactive group discussions by writing notes and sharing when prompted. Attentive during psychoeducation on the six types of boundaries (physical, emotional, intellectual, sexual, time, and material) AEB note-taking. Along with peers contributed to interactive discussion on defining what a boundary is in mental health. Client along with peers identified challenges to setting boundaries which included; fear of other's response, guilt, fear of losing relationships, and lack of confidence. Client along with peers identified the benefits to setting boundaries such as increased control, benefit to mental health, and increased confidence. Client shared that she feels that she struggles with setting all boundaries for herself and is a people pleaser. Client benefited from increased awareness and insight on the importance/benefit to setting health boundaries. Will continue in IOP to increase positive self care, increase emotional regulations skills, and improve functioning. Narrative Note: []
--- NOTE | 2022-03-07 11:10 | BH.SGPN.GN ---
Behaviors/Verbalizations/Mental Status: [] Client alert and oriented, casually dressed and appropriately groomed. Eye contact good. Motor activity normal. Speech within normal limits. Affect congruent, mood euthymic. Thoughts linear and intact. no signs of delusions or hallucinations. Client Response/Progress/Benefit: [] Client responded well to session AEB listening attentively to peers, providing input when promoted, as well as taking notes throughout. Group discussed the different boundary setting styles which included ridgid, porous, and flexible. Participated well in small group discussion identifying the pros and cons of each boundary setting style. As a group discussed various strategies to set boundaries. Client reports wanting to begin using skill of practicing self reflection to help increase boundaries setting. Seemed to benefit from increased awareness of how different boundary styles can impact mental health Client will continue IOP tx to increase ability to regulate emotions, increase self-care and increase application of learned skills. Narrative Note: []
--- NOTE | 2022-03-09 09:00 | BH.SGPN.GN ---
Behaviors/Verbalizations/Mental Status: []Pt alert and oriented, neatly dressed and groomed. Eye contact good. Motor activity appropriate. Speech within normal limits. Affect congruent-tearful, mood depressed and lonely. Thoughts linear, logical, no signs of hallucinations or delusions. Reviewed pt?s symptom tracker, no risk for suicidal ideation, plan, or intent as of 03/09/22 Client Response/Progress/Benefit: []Pt responded well to session, receptive to group support. Pt reports feeling the loss of her daughter very heavily today. Pt shared she wanted to stay in bed and thought about canceling IOP, but she used opposite action today. Pt recently left her , so she shared not having him to grieve with has been challenging. Pt does have a best friend who is a healthy support for pt and pt can reach out to her. Pt reminded that she is allowed to grieve and praised for using her healthy skills today which pt appeared to benefit from. Pt will continue IOP tx to prevent decompensation, increase distress tolerance, and improve self-care. Narrative Note: []
--- NOTE | 2022-03-09 11:10 | BH.SGPN.GN ---
Behaviors/Verbalizations/Mental Status: [] Client alert and oriented, casually dressed and groomed. Eye contact fair. Motor activity appropriate. Speech within normal limits. Affect congruent, mood euthymic. Thoughts linear, logical, no signs of hallucinations or delusions. Client Response/Progress/Benefit: [] Client was an active participant in group discussions and activity. Attentive during psychoeducation. Client along with peers were able to identify several negatives on the picture given to the group. Client and peers also identified positives in the picture and made the connect that finding positives is much more difficult. Interactive discussion on the definition of perspective, how perspective is formed, and why perspective is important in treatment. Client along with peers also identified that perspective can either motivate and encourage treatment or be a barrier to receiving help. Client shared in currently she has a more negative perspective towards life. Client stated current perspective leads to increase isolation, easier to fall into down moods, waiting for the next best thing, and more difficult time reaching out to supports. Will continue in IOP to continue use of healthy coping, increase confidence, and prevent decompensation.
--- NOTE | 2022-03-09 11:16 | BH.SGPN.GN ---
Behaviors/Verbalizations/Mental Status: []Client alert and oriented, casually dressed and groomed. Eye contact good. Motor activity appropriate. Speech within normal limits. Affect congruent, mood anxious and dysthymic. Thoughts linear, logical, no signs of hallucinations or delusions Client Response/Progress/Benefit: []Client was attentive and contributed in small and larger group discussion. Client completed strengths exploration worksheet and identified personal strengths of creativity, humor, patience, and love. With some assistance, Client able to acknowledge how these strengths are helping her and can continue to help client in their mental health journey. Shared wanting to focus on using an accomplishment journaling to reinforce strength of love, specifically self-love. Benefited from identifying personal strengths and strategies for enhancing use of identified strengths. Client to continue IOP tx to promote use of healthy coping skills, improve mood stability, reduce depression, and prevent decompensation. Narrative Note: []
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
--- NOTE | 2022-03-11 09:00 | BH.SGPN.GN ---
Behaviors/Verbalizations/Mental Status: []Pt alert and oriented, casually dressed and groomed. Eye contact good. Motor activity appropriate. Speech within normal limits. Affect congruent, mood stressed. Thoughts linear, logical, no signs of hallucinations or delusions. Reviewed pt?s symptom tracker, no risk for suicidal ideation, plan, or intent as of 03/11/22 Client Response/Progress/Benefit: []Pt responded well to session, attentive and providing supportive feedback. Pt reports feeling a lot of emotions at once this morning. Pt did engage in self-care activities which was one of her goals this week. Pt played the keyboard and found this enjoyable. Pt reports her grief has been more intense this week and she is missing her daughter. Pt received emotional support and ideas to cope with grief from peers which pt appeared to benefit from. Pt plans to reach out to her best friend today for support and pt wants to keep working on increasing self-care. Pt will continue IOP tx to promote the use of healthy coping skills, reduce self-harm and SI, and increase boundary setting. Narrative Note: []
--- NOTE | 2022-03-11 10:05 | BH.SGPN.GN ---
Behaviors/Verbalizations/Mental Status: []Eye contact is good. Motor activity is appropriate. Appearance is casual and grooming tended to. Speech is Appropriate. Mood is anxious, dysthymic. Affect is congruent. Thoughts are linear and logical. No evidence of psychosis. Client Response/Progress/Benefit: []Client receptive of session, actively engaged throughout AEB taking notes and providing input and examples to discussion. Appeared to connect with group topic of cognitive distortions and the impact of thought patterns on mental health, coping behaviors, and relationships. Reflected that she personally tends to struggle with distortions of mental filter, disqualifying the positives, and fortune telling. Shared an example of past mental filter thinking as ?I only see the good in the relationship and tend to ignore or dismiss the bad?. Client appeared to benefit from gaining insight on distorted thinking patterns and how this impacts overall mental health. Progress noted in client report of improved insight into her own distorted thinking patterns. Will continue IOP tx to maintain mood stability and continue to promote healthy coping, as well as continue to encourage self-care. Narrative Note: []
--- NOTE | 2022-03-11 11:10 | BH.SGPN.GN ---
Behaviors/Verbalizations/Mental Status: [] Eye contact is good. Motor activity is appropriate. Appearance is casual. Speech is Appropriate. Mood is euthymic. Affect is congruent. Thoughts are linear and logical. No evidence of psychosis. Client Response/Progress/Benefit: [] Pt was an active participant in the group activity which involved working with peers to answer questions related to psychoeducation on cognitive distortions. Client engaged in activity in which group would practice identifying cognitive distortions, reframing cognitive distortions, and examples of distortions. Therapist used activity to reinforce psychoeducation and to help client retain the information through examples and practicing. Pt was engaged in the game and with peers on collaborating to determine the answers. Pt stated she realizes she often utilizes cognitive distortions daily and needs to work on challenging the negative thoughts. Benefited from rehearsing ways to challenge/reframe cognitive distortions and by gaining increased insight into examples/definitions of 10 most common cognitive distortions. Will continue in IOP to maintain gains and prevent decompensation.
--- NOTE | 2022-03-14 09:00 | BH.SGPN.GN ---
Behaviors/Verbalizations/Mental Status: [] Eye contact is good. Motor activity is appropriate. Appearance is casual. Speech is Appropriate. Mood is euthymic. Affect is full. Thoughts are linear and logical. No evidence of psychosis. Reviewed daily check in sheet and pt reports 2/5 for suicidal ideations and 1/5 for intent. Client Response/Progress/Benefit: [] Pt was an active participant in group discussion. Attentive. Emotion for today is disconnected. Daily symptom tracker notes 3/5 for depression and 4/5 for self-harm urges. Overal notes her mood and ability to function are better than last visit. Mental health wins over the weekend include I cleaned the whole house. Elaborated on why this was a mental health win. Reports that he moods are all over the place. Erratic moods which occur throughout the day w/o a trigger. She reports that she is managing the lows by reframing and distracting I know that it will only last for a couple minutes or hours. Benefited from group support, encouragement, and feedback. Will continue in IOP to prevent decompensation/re-admission, stabilize mood, and maintain safety. Narrative Note: []
--- NOTE | 2022-03-14 10:00 | BH.SGPN.GN ---
Behaviors/Verbalizations/Mental Status: [] Eye contact is fair. Motor activity is appropriate. Appearance is casual. Speech is Appropriate. Mood is dysthymic. Affect is incongruent AEB pt talking about multiple times while smiling/laughing. Thoughts are linear and logical. Client Response/Progress/Benefit: [] Pt provided feedback at times during group, made several comments about and off topic comments which is different compared to previous group sessions. Attentive during psychoeducation and provided insight into obstacles in the way of mental wellness. Pt shared her picture depicting her current mental health reality with the group. She described her current reality as feeling out of control and mood instability. Stated desired reality is having more healthy tools to manage mood and stressors. Pt identified barriers that get in the way of desired reality include: negative core beliefs, toxic relationships, poor boundary, and grief. Benefited from taking look at current mental health state and obstacles for progress. Will continue in IOP to increase consistent use of healthy coping, challenge negative thinking, and prevent decompensation.
--- NOTE | 2022-03-14 13:33 | BH.MDN_ITS ---
Multi-Disciplinary Note - Note 45-min Individual Time Started:: 11:15 Date: 03/14/22 Purpose of session/treatment goals addressed:: Met with pt to discuss progress and current symptoms. Pt has marked 4/5 for self-harm urges on her daily check- in sheet and was joking about frequently in groups the AM. Eye Contact:: Good Motor Activity:: Appropriate Appearance:: Casual Speech:: Appropriate Mood:: Anxious Affect:: Congruent Thoughts:: Linear, Logical, No evidence of hallucinations/delusions noted Staff Interventions:: completed risk assessment / safety planning Client Response:: Pt denies any acute stressors. Reports overall her weekend was pretty good. Shared that she set more boundaries with her and was assertive in her communication. Reports that being assertive and setting boundaries is very challenging for her and she feels bad, however insight that being passive and not setting boundaries had negatively impacted her mental health in the past. She reports erratic moods and ups and downs for the past week. No specific trigger however has entered a job training and placement program which has increased her fear and anxiety about returning to work. Her last psychiatric admission occurred on what was suppose to be her first day at a new job. We processed emotions related to change. Other stressors include separation from and upcoming holidays. She has insight on her dx of Bipolar however believes that her medications have kept me pretty stable. During her ups she reports being restless, talking a lot, and making jokes. Admits that her jokes or humor are often very dark to others (i.e. about ) however she reports that joking or humor is her way to cope with crisis. Gave examples of doing this with her stillborn child. Her sleep has improved since last week and her nightmares have also decreased. During her downs she reports urges to self-harm to cope. Hx of self-injurious behaviors (cutting) to cope not kill herself. 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 She has plans to decorate the [employer] tree with her kids tonight which she is looking forward too as well. Risks/Concerns:: Denies active SI, plan, or intent. Occasional passive thoughts of when in her downs, however has not escalated to SI or intent. Future- oriented. Protective factors reported. Urges to self-harm, which is long- standing unhealthy coping skill. Does not present as imminent danger to herself due to no active SI, plan, or intent. Contracts for safety. Aware of crisis numb ers and encouraged to go to ER if suicidal ideations occur. Progress Toward Goals/Plan:: After the session pt provided IOP staff with razor blades that she had in her car. She voluntarily handed these over without being prompted by this therapist. Pt is utilizing skills to manage stress, anxiety, depression and long-standing urges to self-harm. We reviewed skills, safety p bebeto, and processed emotions related to current psychosocial stressors. She was smiling and engaged during the session and is future-oriented. Responded well to session and again handed over razor blades without being prompted showing motivation to not utilize self-harm as a coping skill. Will continue in IOP to maintain safety, increase healthy coping, and to prevent decompensation. Time Stopped:: 12:00
--- NOTE | 2022-03-15 09:00 | BH.SGPN.GN ---
Behaviors/Verbalizations/Mental Status: []Eye contact is good. Motor activity is appropriate. Appearance is casual. Speech is Appropriate. Mood is anxious and agitated. Affect is constricted. Thoughts are linear and logical. No evidence of psychosis. Reviewed daily check in sheet and pt's scores were within pt's baseline. Client Response/Progress/Benefit: []Pt responded well to session, receptive to gentle thought challenging. Pt reports feeling agitated this morning and struggled to identify mental health wins at first. Pt shared she has been having more urges to self-harm and go out to buy razors. Pt able to see how not engaging in self-harm is a win and pt got rid of razors yesterday. Pt's second win was that she had a good moment decorating the [employer] tree with her daughter and pt was able to manage her emotions and be present. Pt also helped her daughter process some difficult emotions which pt was proud of. Pt appeared to benefit from gentle thought challenging and engaging with peers. Pt will continue IOP tx to promote use of healthy coping skills, reduce self-harm, and improve mood stability. Narrative Note: []
--- NOTE | 2022-03-15 10:10 | BH.SGPN.GN ---
Behaviors/Verbalizations/Mental Status: [] Eye contact is good. Motor activity is appropriate. Appearance is casual. Speech is Appropriate. Mood is depressed. Affect is flat. Thoughts are linear and logical. No evidence of psychosis. Client Response/Progress/Benefit: [] Pt participated at times during the group discussions. Active participant in experiential activity. Attentive during psychoeducation. Pt provided input during discussion on types of social supports which included; family, friends, PCP, mental health providers, support groups, pets, ourselves, community classes, etc. Pt along with the group identified mental health benefits of social support which patient and group identified as; it can help with emotional release, help one to feel heard, validation, distraction, they can encourage us, provide motivation, provide accountability, and boost our mood. Pt along with peers also worked together to identify obstacles to utilizing support which included; feeling like one doesn't deserve support, past negative experiences, cognitive distortions, and avoidance/mood. Benefited from increased awareness of mental health benefits of social support and obstacles that prevent one from utilizing support. Will continue in IOP to maintain safety, prevent decompensation/readmission, and stabilize mood. Narrative Note: []
--- NOTE | 2022-03-16 09:05 | BH.SGPN.GN ---
Behaviors/Verbalizations/Mental Status: [] Eye contact is good. Motor activity is appropriate. Appearance is casual. Speech is Appropriate. Mood is euthymic. Affect is full. Thoughts are linear and logical. No evidence of psychosis. Reviewed daily check in sheet and pt reports 3/5 for suicidal ideations and 1/5 for content. This is slightly higher than baseline. Met with therapist this AM. Client Response/Progress/Benefit: [] Pt was an active participant in group discussion. Attentive. Emotion for today is chill. Daily symptom tracker notes 4/5 for depression and self-harm urges and 3/5 for anxiety. Mental health alejandro was getting here early. Shared that she met with her individual counselor prior to group which is a good way to start the day. Other mental health win was completing self-care yesterday and today. She talked at length regarding her struggles with identify the differences between healthy and unhealthy relationships. Discussed how this has impacted her relationships and mental health in the past. Reports that it is challenging and awkward to set boundaries and be assertive with others. Will continue in IOP to maintain safety, prevent decompensation/re-admission, and to increase healthy coping. Narrative Note: []
--- NOTE | 2022-03-16 10:10 | BH.SGPN.GN ---
Behaviors/Verbalizations/Mental Status: []Pt alert and oriented, neatly dressed and groomed. Eye contact good. Motor activity restless. Speech within normal limits. Affect congruent, mood agitated. Thoughts linear, logical, no signs of hallucinations or delusions. Client Response/Progress/Benefit: []Pt was an active participant in group discussions. Participated with peers in experiential activity. Pt participated in an interactive discussion with peers in which they worked together to define what coping skills are. Group then identified unhealthy coping skills which included; isolating, sleeping to avoid, drugs and alcohol, and self-harm. Pt displayed insight that she struggles with using healthy alternatives to her old, unhealthy coping skills, but pt is learning. Reflected that this adds more stress to pt?s life and worsens mental health symptoms. Benefited from increased awareness and education the benefits of having a healthy coping repertoire and consequences of unhealthy coping on mental health and relationships. Will continue IOP tx to further promote healthy emotional regulation skills, combat distortions, and improve self-care. ?? Narrative Note: []
--- NOTE | 2022-03-16 11:10 | BH.SGPN.GN ---
Behaviors/Verbalizations/Mental Status: []Client alert and oriented, casually dressed and groomed. Eye contact fair. Motor activity appropriate. Speech within normal limits. Affect constricted, mood dysthymic. Thoughts linear, logical, no signs of hallucinations or delusions. Client Response/Progress/Benefit: []Client responded well to session, taking notes and contributing. Group discussed the different categories of coping skills which included distraction, emotional release, grounding, self-love, and thought challenging. Client participated in creating a coping skills ?menu? from the five categories of coping skills. Client's coping skill menu included: play piano, journaling, talk to supports, set boundaries, and positive affirmations. Appeared to benefit from increasing repertoire of healthy coping skills. Will continue IOP to increase consistent use of healthy coping skills, challenge distorted thoughts, and prevent decompensation.
--- NOTE | 2022-03-16 12:20 | BH.MDN_ITS ---
Multi-Disciplinary Note - Note 60-min Individual Time Started:: 08:12 Date: 03/16/22 Purpose of session/treatment goals addressed:: To review progress in tx and process any current stressors impacting further progress. Began discussion on self-compassion. Eye Contact:: Good Motor Activity:: Appropriate Appearance:: Casual Speech:: Appropriate Mood:: Anxious, Depressed Affect:: Congruent Thoughts:: Linear, Logical, Other - significant negative core belief thoughts impeding ability to see progress, No evidence of hallucinations/delusions noted Staff Interventions:: thought challenging, motivational interviewing, psychoeducation on: - discussed characteristic of healthy vs. unhealthy boundaries,, strengths perspective, treatment planning, reviewed DSM-5, taught coping skills - began working on self-compassion Client Response:: Client responded well to session, open to meeting with therapist. Client shared that the past week has been more difficult, stating ?I just don?t know why things aren?t better yet?. Described expectations that she ?should not? be experiencing ongoing urges to self-harm or suicidal ideation, as well as beliefs that she ?should? be able to return to full-time employment and not ?need to? utilize the [employer] work readiness program. Able to work with therapist to identify various distortions and negative core beliefs impacting her expectations of self. Shared struggling with feeling like a burden and that she does not deserve to take time to heal and work on herself. Did well to respond to discussion on self-compassion and was able to begin identifying self- compassionate approaches to addressing identified negative core beliefs. Additionally reviewed with pt progress made since beginning IOP tx and challenged client to identify areas in which she deserves to give herself credit. Pt identified improved ability to follow-through with healthy boundary setting in order to remove herself from a toxic relationship, no self harming in the past 3 weeks, reduced frequency and intensity of SI, and increased ability to engage in self-care activities. Shared taking time to play the keyboard and allowing herself to rest when feeling she may need downtime. Pt has additionally been more consistently reaching out to healthy supports and utilizing supportive services in the area. Client shared concerns about maintaining boundaries with her , discussing concerns she will go back now that he has started to put more effort into respecting client?s needs and working on the relationship. Therapist began discussion with pt on characteristics of healthy relationships and gave pt handout on healthy vs. unhealthy relationships to review for homework. Risks/Concerns:: Client continues to report self-harm urges and passive SI on a daily basis. She however denies any active suicidal ideations, plan, or intent as of 03/16/22. Denies any self-harming in the past 3 weeks. Denies homicidal ideations. Denies any medication issues. Progress Toward Goals/Plan:: Client continues to respond well to IOP tx AEB increased contributions in group and reduced depression and anxiety scores on the DSM-5. Client reports her self-care has improved, she has been playing the keyboard again, and she has been more connected with healthy supports. Client reports she is using healthy coping skills more often but continues to struggle with use of positive self-talk. Client's current stressors include wanting to return to the workforce, her relationship status, and ongoing grief. can benefit from ongoing IOP tx to help decrease depressive symptoms, maintain gains, and continue to promote healthy boundaries. Time Stopped:: 09:12
--- NOTE | 2022-03-16 12:20 | BH.MTP_ITS ---
Treatment Plan Review Date of Admission:: 02/21/22 Date of Treatment Plan Review:: 03/16/22 Admitting Diagnoses:: 1. Borderline personality disorder. 2. Bipolar disorder, NOS (F31.9). 3. Generalized anxiety disorder. 4. PTSD Current Diagnoses:: 1. Borderline personality disorder. 2. Bipolar disorder, NOS (F31.9). 3. Generalized anxiety disorder. 4. PTSD Patient's Response to Treatment:: Client is responding well to IOP tx AEB her overall symptoms reducing per DSM-5 indication, as well as pt self-report of improved sx and ability to function. Additionally, client has not self-harmed in the past 3 weeks, reports reduced frequency and intensity of SI, and increased ability to engage in self-care activities.. Client is willing to share during group sessions and provides supportive feedback. Client is improving upon consistency with coping skill application and is engaged in both group and individual sessions. Client's attendance is consistent and she is medication compliant. Status of Current Problems and Symptoms: Client continues to report mild to moderate symptoms of depression which continue to be directly associated with the relationship with her . Client's depressive symptoms are still reduced compared to admission to [facility]. Client continues to report limited support and family conflict that impacts client's mental health. Client's SI has decreased significantly, but she still occasionally reports passive SI and urges to engage in self-harming behaviors. Problem #1 Problem Name:: Depression, SI Status of Goals:: Objective 1- complete with ongoing work encouraged. Client?s DSM-5 scores for depression have decreased as has her SI. Client has been using opposite action, self-care, reaching out to supports, playing the keyboard, and spending time with her children to cope with depression. Ongoing work encouraged as client reports she feels down and depressed more than half the days. This is likely due to family stressors and upcoming holidays. Objective 2- complete with ongoing work encouraged. Client has been working to identify and replace negative core beliefs, though this continues to be an area of significant difficulty. Team Recommendations:: Treatment team recommends that client continue working on boundary setting with family, challenging negative self-talk, and increasing armando f-advocacy. Also recommended to work on self-soothing/distress tolerance skills. Problem #2 Problem Name:: Mood instability, anxiety Status of Goals:: Objective 1- partially complete. Client has learned about various distress tolerance skills for managing her emotions and reports increased insight into common triggers for emotion dysregulation. Client can continue to improve on challenging negative, anxious thoughts without external support, as well as consistent skill application. Objective 2- complete with ongoing work encouraged. Client?s anxiety has decreased since admission. Client has been using opposite action and self-care to manage anxiety. Client is currently working on boundary setting and self-advocacy with family, which c ontinues to temporarily spike anxiety. Team Recommendations:: Treatment team recommends that client continue working on reaching out to healthy supports, harms reduction, as well as continuing to improve consistency of application of distress tolerance skills.
--- NOTE | 2022-03-21 10:15 | BH.SGPN.GN ---
Behaviors/Verbalizations/Mental Status: []Client alert and oriented, casually dressed and groomed. Eye contact good. Motor activity appropriate. Speech within normal limits, quiet. Affect constricted, mood anxious and dysthymic. Thoughts linear, logical, no signs of hallucinations or delusions. Client Response/Progress/Benefit: []Client receptive to session AEB initially contributing to discussion, as well listening attentively to others, and taking notes. Client did however appear to become less engaged and more internally focused during discussion in which client?s were asked to identify their own personal stressors. Worked with group to brainstorm the positive and negative aspects of stress on physical and mental health. Group did well to identify the benefits of stress as well as the impact of distress on performance, relationships, and mental health. Client struggled with acknowledging current personal top stressors and opted not to share these. Client desire to avoid stressors continues to be a potential barrier to progress and maintains unhealthy coping behaviors. Client seemed to benefit from increased awareness of impact stress has on mental health. Recommended to continue IOP tx to further improve stress management and healthy boundary setting, improve mental health sx management, and prevent decompensation. Narrative Note: []
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
--- NOTE | 2022-03-21 11:06 | BH.COMM ---
Communication Note - Communication with Client Communication Note: Pt became tearful during group and requested to check-in with this therapist following group sessions on this date. Reports increased urges to engage in self-harming behaviors but unable to identify a specific trigger. Eventually, pt noted that completing the stress activity, in which she was challenged to identify current stressors, led pt to feel overwhelmed about her current circumstances. Able to challenge perspective and safety plan healthier coping mechanisms to avoid self-harming today. Pt reports if she goes straight home rather than stopping by a store, she will not have the resources to self-harm. Pt called to ensure she made it home safely following group and discussed plans to attend tomorrow. Will follow-up again later in the week.
--- NOTE | 2022-03-21 11:15 | BH.SGPN.GN ---
Behaviors/Verbalizations/Mental Status: []Pt alert and oriented, casually dressed and groomed. Eye contact poor. Motor activity appropriate. Speech within normal limits. Affect flat, mood depressed. Thoughts linear, logical, no signs of hallucinations or delusions. Client Response/Progress/Benefit: []Pt participated at times during group discussions. Attentive during psychoeducation on the 4 A's of Coping with Stress (Avoid, Alter, Adapt, Accept). Participated in experiential activity in which group members had to utilize stress management skills in the moment. Pt did well to problem-solve and express ideas to peers. Pt engaged in review of the 4 A?s and reported she wants to alter environment and who she allows in her house. Pt stated she wants to work on setting boundaries. Benefited from processing in the moment stress management strategies and identifying new ways to cope with stress. Will continue in IOP tx to prevent decompensation, increase healthy boundaries and use of healthy coping skills, and improve confidence.
--- NOTE | 2022-03-22 09:05 | BH.SGPN.GN ---
Behaviors/Verbalizations/Mental Status: [] Eye contact is good. Motor activity is appropriate. Appearance is casual. Speech is Appropriate. Mood is depressed. Affect is congruent. Thoughts are linear and logical. No evidence of psychosis. Reviewed daily check in sheet and pt reports 3/5 for suicidal ideations and 1/5 for suicidal intent. Close to baseline. Client Response/Progress/Benefit: [] Pt was an active participan in group discussions. Attentive. Emotion for today is jumbled. Daily symptom tracker notes 3/5 for depression, anxiety, and anger. Mental health for today is I'm here. Other win is that she set another boundary with her . She is struggling with enforcing the boundaries that she sets. Gave examples were she set a boundary however when the other did not respect the boundary she gave up. Believes that this is related to people-pleasing personality and fear of abandonment. If I'm mean than they will leave me. Group provided feedback on negative to mental health if boundaries are not set and reinforced which was beneficial. Will continue in IOP to maintain safety, prevent decompensation/re-admission, and to stabilize mood. Narrative Note: []
--- NOTE | 2022-03-22 10:15 | BH.SGPN.GN ---
Behaviors/Verbalizations/Mental Status: []Pt alert and oriented, casually dressed and groomed. Eye contact good. Motor activity appropriate. Speech within normal limits-often using sarcasm and humor. Affect congruent, mood dysthymic and irritable. Thoughts linear, logical, no signs of hallucinations or delusions. Client Response/Progress/Benefit: []Pt participated in group discussion. Group worked together to identify benefits of healthy relationships which included improves mental health, encouragement, motivation, accountability, validation, connection, someone to share experiences with, and support during challenges. However, pt shared that she has never seen a healthy relationship and therefore believes ?they don?t exist.? Group identified factors that lead to unhealthy relationships which included trauma, lack of communication, and substance use. Pt often using humor and sarcasm during the activity. Benefited from increased insight and awareness of benefits of healthy relationships and factors that contribute to unhealthy relationships. Will continue in IOP to prevent self-harming behaviors, improve emotional regulation, and promote mood stability. ? Narrative Note: []
--- NOTE | 2022-03-22 11:10 | BH.SGPN.GN ---
Behaviors/Verbalizations/Mental Status: [] Client alert and oriented, casually dressed and groomed. Eye contact good. Motor activity appropriate. Speech within normal limits. Affect congruent, mood dysthymic. Thoughts linear, logical, no signs of hallucinations or delusions. Client Response/Progress/Benefit: [] Client responded well to session, engaged and taking notes. Worked with group to identify characteristics of healthy and unhealthy relationships. Client made comments that she logically knows what is part of a healthy relationship, but isn't convinced it is something that is possible for her to have. Attentive during psychoeducation about characteristics of healthy, unhealthy, and abusive relationships. Client stated she has been working on setting boundaries with whom hasn't been healthy for her and will continue to work on this to improve relationships. Appeared to benefit from identifying areas she wants to work on to build healthier relationships. Pt recommended to continue IOP tx to improve emotion regulation, increase confidence, and prevent decompensation.
--- NOTE | 2022-03-23 10:05 | BH.SGPN.GN ---
Behaviors/Verbalizations/Mental Status: []Eye contact is good. Motor activity is appropriate. Appearance is casual. Speech is Appropriate. Mood is anxious and euthymic. Affect is congruent. Thoughts are linear and logical. No evidence of psychosis. Client Response/Progress/Benefit: []Pt participated during the group discussion. Attentive during psychoeducation and actively engaged during experiential activity. Participated during interactive discussion on aspects of fixed mindset. Group identified several aspects of fixed mindset which included; inflexible, belief that one cannot grow, absolute thinking, and all of one's skills, traits, and behaviors are set in stone and can't change. Pt did well in experiential activity in which they were given a seemingly impossible task and were asked to identify fixed thoughts that arose. Group then identified personal examples of fixed thinking in which pt shared personal fixed thoughts as: ?I?m bad?, ?I don?t deserve it?, and ?I?m unlovable?. Benefited from increased understanding of personal fixed mindsets and how they can impact mental health. Will continue in IOP to prevent decompensation, continue to improve mood stability, and promote self-care and healthy boundary setting. Narrative Note: []
--- NOTE | 2022-03-23 11:05 | BH.SGPN.GN ---
Behaviors/Verbalizations/Mental Status: []Pt alert and oriented, casually dressed and groomed. Eye contact good. Motor activity appropriate. Speech within normal limits. Affect congruent, mood euthymic. Thoughts linear, logical, no signs of hallucinations or delusions. Client Response/Progress/Benefit: []Pt engaged during activity and discussion AEB providing some input, connecting with peers, as well as taking notes throughout. Pt did well to engage as group worked on identifying characteristics and benefits of adopting a growth mindset. Worked with fellow participants in reframing the example fixed thoughts into growth mindset thoughts. Reframed personal fixed thought of ?I won?t ever be happy? with growth mindset thought of ?things are challenging right now, but I still have moments of happiness.? Benefitted from discussing benefits of growth mindset and brainstorming strategies for prompting growth-mindset. Pt continues to make progress in challenging her thinking, but pt did self-harm yesterday. Will continue IOP tx to increase overall functioning and reduce self-sabotaging behaviors. ? Narrative Note: []
--- NOTE | 2022-03-23 11:05 | BH.MDN ---
Multi-Disciplinary Note - Note 45-min Individual Time Started:: 09:15 Date: 03/23/22 Purpose of session/treatment goals addressed:: To check-in with pt as she self-reported doing worse and recently engaging in self-harming behaviors. Eye Contact:: Good Motor Activity:: Appropriate Appearance:: Casual Speech:: Appropriate Mood:: Anxious, Dysthymic Affect:: Congruent Thoughts:: Linear, Logical, No evidence of hallucinations/delusions noted Staff Interventions:: thought challenging, CBT techniques, strengths perspective, goal setting, taught coping skills - reviewed healthy emotion release skills, other - reviewed concept of secondary gain in relation to self-sabotage Client Response:: Client responded well to session, open to meeting with therapist. Reports struggling with increased anxiety and feelings of guilt related to reinforcing the boundaries with her . Client reports realizing that although she is still struggling with depression, she has been happier and more engaged with her children in the past few weeks since asking her to move out. Discussed disappointment that her has not yet followed through with any of the changes they had discussed in order for them to work on the relationship. Client discussed telling her she would not attend his work [employer] event this year with their children as she did not feel it was appropriate given the fact that she is trying to take space from the relationship to work on herself. Additionally shared she has not allowed him to visit the house until he scheduled a counseling and psychiatry appointment. Expressed frustration that he does not appear to view their relationship or his mental health as a priority based upon lack of follow-through and client discussed feeling pessimistic about their ability to rebuild trust within the relationship. Reports guilt and anxiety about the prospect of moving forward with her life without her and shared that this as well as grief surrounding the holiday season led client to self-harm the previous night. Laceration to forearm appears superficial and client reports it occurred as a means of emotional release and not suicidal in nature. Acknowledged that although change is scary and uncomfortable, it is not necessarily bad. Did well to identify positive benefits of changes she has made beginning IOP tx and potential benefits of continued healthy changes. Noted several areas she has begun to make healthy changes including spending more time with her children, allowing herself to be ?goofy? more often, consistently playing the keyboard, and slowly beginning to allow herself to make plans for the future. Client and therapist discussed harms reduction and healthier alternatives for emotion release. Client additionally identified plans to begin making a daily happiness journal in which she will track small moments of enjoyment/personal happiness to better recognize positive moments over negatives. Risks/Concerns:: Client continues to report self-harm urges and recent relapse in self-harming behaviors the previous date. Denies this was suicidal in nature and denies any current self-harm urges, SI, plan or intent. Reports willingness to work on replacing self-harm urges with healthier alternatives and willing to give therapist the razors she had recently purchased for self-harm purposes. Progress Toward Goals/Plan:: Client continues to respond well to IOP tx and is making progress in making significant important boundary changes as well as developing healthier independent coping skills. Client continues to struggle with managing emotions in the moment and recently relapsed on self-harm behaviors as a result. Client has insight into the impacts of continued self-harming on preventing her from making consistent progress. Client notes continued use of self-care and engaging in activities she enjoys. Reports ongoing difficulties with managing intrusive and anxious thoughts, specifically those about maintaining gains and feeling she is not ?doing enough? or progressing far enough in treatment. Client struggles with giving herself credit for the progress she has made and did well to identify some secondary gains in self-sabotaging behaviors which she is open to beginning to address. She can benefit from ongoing IOP tx to help improve management of symptoms, maintain gains, and continue to prevent engaging in unhealthy means of emotional release. Time Stopped:: 09:56
--- NOTE | 2022-03-24 09:00 | BH.SGPN.GN ---
Behaviors/Verbalizations/Mental Status: []Pt alert and oriented, neatly dressed and groomed. Eye contact good. Motor activity appropriate. Speech within normal limits. Affect congruent, mood anxious. Thoughts linear, logical, no signs of hallucinations or delusions. Reviewed pt?s symptom tracker, no risk for suicidal ideation, plan, or intent as of 03/24/22 Client Response/Progress/Benefit: []Pt responded well to session, attentive and offering supportive statements. Pt reports feeling hesitant this morning and shared that her biggest stressor today is missing her baby as this would be her daughter's first Pray. Pt has been having urges to self-harm, but she has kept herself from engaging in these behaviors. Pt also brought in several pill bottles today to prevent herself from acting on impulse. Pt praised for this. Pt is making progress AEB her reduction of self-harming behaviors and reduced suicidal ideations. Pt will continue IOP tx to promote use of healthy coping skills and improve mood stability. Narrative Note: []
--- NOTE | 2022-03-24 10:10 | BH.SGPN.GN ---
Behaviors/Verbalizations/Mental Status: [] Eye contact is good. Motor activity is appropriate. Appearance is casual. Speech is Appropriate. Mood is anxious. Affect is congruent. Thoughts are linear and logical. No evidence of psychosis. Client Response/Progress/Benefit: [] Pt was an active participant in group discussions and experiential activity. Attentive during psychoeducation. Participated along with peers on working to define locus of control and provide examples of internal and external locus of control. Interactive discussion between group members, pt, and therapist on characteristics of internal locus of control which included; takes responsibility for actions, less influenced by others and increased confidence. Some characteristic identified by patient and peers for external locus of control included; others have more influence and control, decreased motivation to make changes if one believes that mood/thoughts/self-esteem are based on others. Active and engaged during experiential activity and was able to see correlations between activity and emotions/perspectives associated with internal vs external locus of control. Benefited from increased insight and awareness of internal vs external locus of control and how this could impact mental health. Will continue in IOP to maintain safety, prevent decompensation/re-admission to psych unit, and to increase healthy coping skills. Narrative Note: []
--- NOTE | 2022-03-24 11:05 | BH.SGPN.GN ---
Behaviors/Verbalizations/Mental Status: []Client alert and oriented, casually dressed and groomed. Eye contact good. Motor activity appropriate. Speech within normal limits. Affect congruent, mood anxious and dysthymic. Thoughts linear, logical, no signs of hallucinations or delusions. Client Response/Progress/Benefit: []Client responded well to session, actively engaged during psychoeducation on circles of control including areas in which we have control, some influence, or concern but no control over in daily life. Client completed a worksheet in which they identified what areas their own current stressors may fall into. Client identified having most control over: their willingness to ask for help and engagement in their mental health treatment, some control over: their relationship/boundaries with their partner , mental health, and quality of their kid?s lives, and no control over: social media, medication availability, , and availability of financial resources/assistance. Group then worked together on identifying steps to begin using an internal locus of control when addressing current stressors. Client identified wanting to focus effectively maintaining established boundaries with their . Noted plans to do so by having consistency with her boundaries and regularly communicating her needs. Client will continue IOP tx to improve consistent skill application and use of healthy supports, maintain safety, and prevent decompensation. Narrative Note: []
--- NOTE | 2022-03-29 09:05 | BH.SGPN.GN ---
Behaviors/Verbalizations/Mental Status: [] Eye contact is good. Motor activity is appropriate. Appearance is casual. Speech is Appropriate. Mood is euthymic. Affect is full. Thoughts are linear and logical. No evidence of psychosis. Reviewed daily check in sheet and pt reports 4/10 for suicidal ideation. Pt utilizes the [facility] 10pt SI scale due to long-standing SI. Client Response/Progress/Benefit: [] Pt was an active participant in group discussion. Attentive. Emotion for today is removed. Daily symptom tracker notes 2/5 for depression, anxiety, and anger. Reports 3/5 for self-harm urges.Shared struggles and stressors over the holiday weekend however states I didn't go into crisis mode. Proud of herself for utilizing journaling, reframing, and other healthy coping skills to manage her emotions and negative thoughts. Most significant stressor continues to be her conflicted relationship with her . Currently they are and pt is trying to set boundaries however is struggling to follow through with them. Elaborated more on the benefits and structure of her journaling. Benefited from group support, encouragement, and feedback. Will continue in IOP to maintain safety, prevent decompensation/re-admission, and to improve healthy coping skills. Narrative Note: []
--- NOTE | 2022-03-29 10:10 | BH.SGPN.GN ---
Behaviors/Verbalizations/Mental Status: []Pt alert and oriented, casually dressed and groomed. Eye contact good. Motor activity appropriate. Speech within normal limits. Affect congruent, mood stressed. Thoughts linear, logical, no signs of hallucinations or delusions. Client Response/Progress/Benefit: []Attentive during psychoeducation on SMART (Specific, Measurable, Achievable, Realistic, Timely) goals AEB by note-taking. Attentive during group discussion on benefits to setting goals which group identified as; reduced anxiety, increased motivation, better relationships, and sense of accomplishment. Attentive while peers identified obstacles to setting/completing goals which included; procrastination, mental health, believing they are too difficult, procrastination, self-doubt, and unrealistic expectations. Engaged during activity and was able to relate the activity to goal-setting topic. Benefited from increased awareness on benefits to goal-setting, obstacles to developing and following through with a goal, and strategies for setting goals. Will continue in IOP to further reduce self-harming urges, improve distress tolerance skills, and increase self-compassion. Narrative Note: []
--- NOTE | 2022-03-29 11:10 | BH.SGPN.GN ---
Behaviors/Verbalizations/Mental Status: []Eye contact good. Alert and oriented. Motor activity is appropriate. Appearance is casual, grooming appropriate. Speech Appropriate. Mood is dysthymic and anxious. Affect is constricted. Thoughts are linear and logical. No evidence of psychosis or hallucinations. Client Response/Progress/Benefit: []Client was attentive during discussion and engaged in activity portions of group. Willing to complete the worksheet challenging each participant to develop a personal SMART goal. Client chose the goal of not buying items to self-harm with each day for the next week. Client stated this will benefit them by aiding in promoting healthy emotion release skills and prevent setbacks. Client identified barriers which included: lack of resources, limited supports, difficulty identifying healthy in the moment skills, and changes in routine. Client receptive to identifying solutions for these barriers and willing to begin working on this goal. Benefited from this group by developing a short-term SMART goal related to mental health. Will continue IOP tx to further improve emotion regulation and stress management, increase consistency of healthy coping skills, and prevent decompensation. Narrative Note: []
--- NOTE | 2022-03-30 10:08 | BH.SGPN.GN ---
Behaviors/Verbalizations/Mental Status: []Pt alert and oriented, neatly dressed and groomed. Eye contact good. Motor activity appropriate. Speech within normal limits. Affect congruent, mood dysthymic. Thoughts linear, logical, no signs of hallucinations or delusions. Client Response/Progress/Benefit: []cPt participated at times during the group discussions. Participated during interactive discussion on defining conflict (internal/external) and possible benefits to conflict. Attentive during psychoeducation on conflict styles and engaged during small group activity in which peers identified the benefits and consequences to each conflict style. Pt identified that their primary conflict style as avoiding because ?it?s the easiest in the moment.? Pt shared this leads to emotions piling up and eventually a mental health crisis for pt. Benefited from increased awareness of the impact of conflict styles in mental health. Will continue in IOP to reinforce healthy coping skills, reduce urges to self-harm, and improve mood stability. Narrative Note: []
--- NOTE | 2022-03-30 10:53 | PCM.BH.PN_ITS ---
Progress Note Progress Note: History of Present Illness/Interim History: The patient is a 26-year-old female with a history of depression, anxiety and PTSD who is seen in follow-up at the [facility] behavioral health IOP program. I last saw the patient 3 weeks ago and at that time we increased her prazosin to help with her nightmares. The patient states that this dose increase has helped and she is having much less nightmares now. She feels she is benefiting from the IOP program and feels that she is becoming better able to reframe her thoughts when they are dysfunctional. Her improvement is slow but she feels she is also getting better at setting boundaries with her . She does have urges to s elf-harm on a daily basis and brings razors and almost weekly to give to the staff. She last cut her self 3-4 times in the past 3 weeks but no stitches were required. Her mood is overall better but she says it does not go up up-and-down sometimes. She is enjoying things that she does now. She denies active suicidal ideation, homicidal ideation, hallucinations or delusions. She does have passive suicidal ideation very rarely now and occasional passive thoughts of . Current Psychiatric Medications: [] Prozac 40 mg p.o. daily; Seroquel 100 mg p.o. nightly (on this for 11 weeks); prazosin 2 mg p.o. nightly; Vistaril 25 mg p.o. every 6 hours as needed but the patient is only needing it once a week now. Mental Status Examination: [] The patient is a 26-year-old female who appears normal for stated age and is casually dressed and groomed with good hygiene. She has no psychomotor agitation or retardation and is ambulatory with a normal gait. Eye contact is good and speech is normal rate and rhythm and fluent with no pressure. Mood is mildly depressed. Affect is constricted. Thought process is goal-directed and organized. Thought content: There is evidence of passive thoughts of and occasional passive suicidal ideation. There is no evidence of active suicidal ideation, homicidal ideation, hallucinations, delusions. There are occasional thoughts of self-harm and the patient has engaged in it in the past 3 weeks. Reality testing is intact. Insight is limited but improving. Impulsivity is high. Judgment is intact. Diagnoses: [] 1. Borderline personality disorder 2. Bipolar disorder, NOS (F31.9) 3. Generalized anxiety disorder 4. PTSD 5. Primary support and financial issues Plan: [] The patient will continue the IOP program at [facility] as the structure, support, education and group therapy will hopefully prevent worsening of the patient's symptoms that might require hospitalization. She felt safe during the interview and if it anytime she does not feel safe she will let us know or go to the emergency room. The risks, options, possible complications and side effects of the medications were again discussed with the patient and she understands and accepts these. The patient is encouraged to keep applying the skills she uses in particular to avoid cutting herself to relieve stress or tension. She will continue to follow-up with her outpatient providers and I will continue to see the patient in follow-up while she is in the IOP program. No medication changes were made today.
--- NOTE | 2022-03-30 11:08 | BH.SGPN.GN ---
Behaviors/Verbalizations/Mental Status: []Pt alert and oriented, casually dressed and groomed. Eye contact good. Motor activity appropriate. Speech within normal limits. Affect congruent, mood euthymic. Thoughts linear, logical, no signs of hallucinations or delusions. Client Response/Progress/Benefit: []Pt engaged in session AEB contributing to discussion and engaging in activity. Pt did well to review current conflict style and its impact on mental health. Attentive and taking notes during discussion on strategies for more effectively managing conflict in personal life.? Pt participated in activity and did well to talk through choices with peers. Pt given handout on fair fighting rules and identified that they want to work on before she begins asking herself why she is upset. Pt thinks that writing down her thoughts will help pt do this. Appeared to benefit from gaining strategies to help pt better manage conflict. Will continue IOP tx to prevent use of unhealthy coping skills, improve mood stability, and increase use of healthy boundaries. Narrative Note: []
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
--- NOTE | 2022-04-01 10:10 | BH.SGPN.GN ---
Behaviors/Verbalizations/Mental Status: Client alert and oriented, casually dressed and groomed. Eye contact fair. Motor activity appropriate. Speech within normal limits. Affect constricted, mood dysthymic. Thoughts linear, logical, no signs of hallucinations or delusions. Client Response/Progress/Benefit: [Client responded well to session, attentive and participating in discussion. Participated in discussion of things that can keep people feeling trapped or stuck in life including: isolation, past experiences, negative perspective, and low self-esteem. Group discussed the connection between thoughts, emotions, and behaviors as well as how negative thinking can keep a person stuck. Client attentive during psychoeducation on maintenance cycles. Client able to identify negative thoughts that have reinforced depression and kept client feeling trapped. Client shared a negative thought maintaining depression is I'm failing. Appeared to benefit from gaining awareness of how negative thoughts reinforce mental health symptoms and keep people stuck. Client to continue IOP to improve emotion regulation, challenge negative thoughts, and prevent decompensation.
--- NOTE | 2022-04-01 11:05 | BH.SGPN.GN ---
Behaviors/Verbalizations/Mental Status: []Client alert and oriented, casually dressed and groomed. Eye contact good. Motor activity appropriate. Speech within normal limits. Affect congruent, mood anxious and dysthymic. Pt often using sarcasm to distract from addressing own emotions/distorted thoughts Thoughts linear, logical, no signs of hallucinations or delusions. Client Response/Progress/Benefit: [] Client responded well to session, contributing to discussion, and providing supportive feedback; however at times struggling with use of inappropriate humor to deflect from addressing difficult thoughts and emotions. Client identified a negative thought that has kept them stuck. Client's thought was I am failing. Client reported when they think this way, they isolate and become more anxious and depressed. Client worked to reframe the thought by finding more rational, realistic ways to look at the thoughts and then processed within group setting. Client reframed the thought to ?There are things that I am succeeding at and other things I am learning how to make progress with?. Client stated she will continue to try and remind herself of times she has succeeded in the recent past to continue challenging negative self-talk. Client appeared to benefit from practicing challenging negative thinking. Client will continue IOP tx to increase overall functioning and prevent decompensation. Narrative Note: []
--- NOTE | 2022-04-01 14:39 | BH.MDN_ITS ---
Multi-Disciplinary Note - Note 45-min Individual Time Started:: 08:30 Date: 03/30/22 Purpose of session/treatment goals addressed:: Met with pt to discuss progress and current symptoms. Another purpose was to address tx goals #1 and #2. Review cost/benefit analysis of self-harm behaviors Eye Contact:: Good Motor Activity:: Appropriate Appearance:: Casual Speech:: Appropriate Mood:: Anxious, Dysthymic Affect:: Congruent Thoughts:: Linear, Logical, No evidence of hallucinations/delusions noted Staff Interventions:: thought challenging, motivational interviewing, strengths perspective, goal setting - identified 3 small things from to-do list to comp lete, taught coping skills - behavior activation skills for prioritizing tasks, other - reviewed self-harm cost/benefit analysis and distress tolerance skills Client Response:: Pt reports feeling ?more down today? and indicated that this is due to feeling she has not had a chance to keep up with her daily responsibilities due to the holidays. Discussed struggling when her routine is thrown off and often feels increased anxiety and pressure to get things back on track. Shared that the stress has also flared some of her physical health issues which is causing additional stress. Identified several additional tasks outside of daily responsibilities she has been avoiding due to feeling overwhelmed as well. Pt indicates increased self-harm urges as a result of emotional distress. Did well to work with therapist on reviewing a self-harm cost benefit analysis. Recognizes this would impede ongoing progress, increase sense of guilt, and potentially lead to more destructive behaviors. Pt receptive of applying behavioral activation skills to prioritize the items on her to-do list by immediate need. Noted that breaking these down and identifying 3 for each day feels less overwhelming and more personally manageable. Reported plans to schedule appointments for her son, her doctor?s appointments, as well as complete the dishes for today. Shared feeling less stressed at end of session and additionally described plans to engage in a small self-care activity this evening as well. Risks/Concerns:: Denies active SI, plan, or intent. Continues to experience chronic, passive thoughts. Future-oriented. Protective factors reported. Reports increased urges to self-harm, but continues to deny doing so since 02/23 and able to identify several healthy skills she may use to continue to prevent engaging in these behaviors. Does not present as imminent danger to herself or others. Contracts for safety. Progress Toward Goals/Plan:: Continued progress noted with some variability. Pt reports increased anxiety and racing thoughts in the past week. Shared difficulties completing usual routine as she would like due to holidays and therefore has been putting off everything on her ?to-do? list. Notes increased self-harming urges due this stress as well as ongoing stress associated with her current relationship. Pt noted use of healthy coping skills and supports rather than returning to self-harming behaviors. Continues to struggle with distorted thoughts and negative core beliefs which impact self-worth and willingness to believe she desires to continue making the progress she has made thus far. Will continue in IOP to maintain safety, further improve consistency of boundaries and healthy coping, and to prevent decompensation. Time Stopped:: 09:14
== END 2022-04-02 23:59 ==
LOC: BHIOP 08:23
PROVIDERS: PCP Student in an Organized Health Care Education/Training Program; Referring Provider Psychiatry & Neurology Psychiatry; Visit Provider Psychiatry & Neurology Psychiatry
DX: F60.3 Borderline personality disorder (principal); F31.9 Bipolar disorder, unspecified; F41.1 Generalized anxiety disorder; F43.10 Post-traumatic stress disorder, unspecified; Z79.899 Other long term (current) drug therapy
CPT/HCPCS: 99213; 99214; H2012; H2020; S9480; 90834; 90837

== ENCOUNTER 2022-04-05 07:29 | Outpatient (RCR) | payer MEDICAID, SELFPAY ==
[2022-04-03 00:34] VITALS: BP 142/93; PULSE 98
--- NOTE | 2022-04-05 09:00 | BH.SGPN.GN ---
Behaviors/Verbalizations/Mental Status: []Eye contact fair to good, casually dressed, motor activity appropriate, speech normal rate and tone, mood anxious and euthymic, congruent affect, thoughts linear and intact, no evidence of delusions or hallucinations. Reviewed pt's symptom tracker, reports suicidal ideation within pt baseline and denies active plan or intent as of this date 04/05/22. Client Response/Progress/Benefit: []Pt responded well to session, attentive and providing supportive feedback throughout. Pt reports feeling ?conflicted/disconnected this morning as she has been struggling to maintain a boundary with her mother/ Shared she has recently cut ties with her mother, however recently received a text from her mother asking to spend time with pt?s daughter for her birthday. Pt discussed feeling conflicted but wanting to maintain her boundaries. Went on to identify doing well to spend time with her children and be present for New Year?s. Additional win noted as using healthy distraction and regular self check-ins rather than feed into urges to act on self-harming thoughts. Shared feeling proud of herself for doing so. Appeared to benefit from group discussion and supportive environment. Recommended continued IOP tx to continue to improve consistency of healthy skill application, promote mood stability and maintaining healthy boundaries, as well as prevent decompensation. Narrative Note: []
--- NOTE | 2022-04-05 10:15 | BH.SGPN.GN ---
Behaviors/Verbalizations/Mental Status: []Pt alert and oriented, neatly dressed and groomed. Eye contact good. Motor activity appropriate. Speech within normal limits. Affect congruent, mood euthymic and anxious. Thoughts linear, logical, no signs of hallucinations or delusions. Client Response/Progress/Benefit: []Pt responded well to session, contributing to discussion and engaged during the activity. Pt identified the benefits of change which included: creating a better life ?for me and my kids? and personal growth. Worked with the group to identify barriers to change and pt identified personal barrier as fear of failing. Pt participated along with group in activity where they identified and discussed the emotions related to change. Pt participated in discussion on the change process and personal experiences with implementing change in past. Benefited from increased awareness and understanding of emotions, benefits, and barriers related to change. Will continue IOP tx to further improve daily functioning, reduce self-harm urges, and increase use of healthy coping skills. ?? Narrative Note: []
--- NOTE | 2022-04-05 11:10 | BH.SGPN.GN ---
Behaviors/Verbalizations/Mental Status: []Pt alert and oriented, casually dressed and groomed. Eye contact good. Motor activity appropriate. Speech within normal limits. Affect congruent, mood anxious. Thoughts linear, logical, no signs of hallucinations or delusions. Client Response/Progress/Benefit: []Pt responded well to session, attentive. Did well to process activity and work with group to relate the strategies used to overcome barriers in the activity to managing change in own life. Pt identified wanting to work on maintaining boundaries she has with her . Pt is anxious about her ability to do this, but pt did reflect on her follow through with boundaries so far which was helpful. Pt?s goal today is to write out why she is setting these boundaries. Pt will continue IOP tx to further improve distress tolerance skills, prevent self-harm, and improve self-confidence. Narrative Note: []
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
--- NOTE | 2022-04-06 10:10 | BH.SGPN.GN ---
Behaviors/Verbalizations/Mental Status: [] Eye contact is good. Motor activity is appropriate. Appearance is casual. Speech is Appropriate. Mood is depressed. Affect is congruent. Thoughts are linear and logical. No evidence of psychosis Client Response/Progress/Benefit: [] Pt participated when prompted. Attentive during psychoeducation. Attentive as peers provided thoughts and feedback on the definition of crisis and types of crisis events. Attentive during interactive discussion in which group identified unhealthy responses to crisis which included; alcohol use, drug use, sleeping to escape, binge-eating, lashing out at others, creating conflict to distract, isolating, avoiding responsibilities, not caring for oneself, and overspending. Pt was able to identify her top warning signs for being in crisis which were disassociating, unhealthy eating, and racing thoughts. Benefited from increased understanding of crisis and pt's personal crisis warning signs. Will continue in IOP to prevent decompensation/ re-admission to psych unit, maintain safety, and increase healthy coping skills. Narrative Note: []
--- NOTE | 2022-04-06 11:10 | BH.SGPN.GN ---
Behaviors/Verbalizations/Mental Status: []Client alert and oriented, casually dressed and groomed. Eye contact fair. Motor activity appropriate. Speech within normal limits. Affect congruent. Mood dysthymic. Thoughts linear, logical, no signs of hallucinations or delusions. Client Response/Progress/Benefit: []Client more withdrawn throughout group session today AEB looking down and providing limited contributions to discussion. Client identified warning signs for crisis and gained further awareness of earliest warning signs. Client created a crisis action plan to help client better manage warning signs for crisis. Client?s action plan for eating less included: eating small snacks throughout day, drink smoothies, and schedule times to eat throughout day. Client appeared to benefit from creating a crisis action plan and increasing self-awareness. Client to continue IOP tx to continue use of healthy coping skills and prevent decompensation.
--- NOTE | 2022-04-06 14:38 | BH.COMM_ITS ---
Communication Note - Communication with Client Communication Note: Pt requested to check-in with this therapist following group sessions on this date. Therapist was in a session with another client and pt was offered to check-in with another therapist. Pt declined, indicating a desire to wait for this therapist as this is pt?s primary therapist while in IOP tx. Reports having difficulties coping during break and into third group session. Pt shared hearing other group members discuss grandchildren, and this brought up grief related trauma. Pt reports leaving the group setting and engaging in self- harming behaviors via cutting her upper arm/shoulder area in the bathroom. Pt denies informing any staff members that she was struggling or attempting to use healthy distress tolerance skills reviewed in the IOP group. Today?s group session topic was Crisis Management and pt had created a crisis safety plan in group prior to leaving to engage in self-harming behaviors. Reports ongoing difficulties in breaking self-harming behavior cycle and identified feeling uncomfortable or like a burden when attempting to use supports or other distress tolerance skills. Receptive of discussion reviewing importance of communication in crisis management and distress tolerance. Therapist assessed for additional risk and pt declined any current active SI, plan, or intent. Gave therapist the razors she had used to self-harm and denies having access to any additional self-harming or potentially lethal means. Reports that she does not want to continue to engage in these behaviors but does not know how to break this cycle. Is future oriented and reports plans to spend the evening with her children whom are a protective factor. Additionally receptive of having her friend, Madeline, check-in with her this afternoon. Therapist called and confirmed this with pt?s support. Reports ability to maintain safety. Will follow-up with therapist for individual session tomorrow at 8am.
--- NOTE | 2022-04-07 09:03 | BH.SGPN.GN ---
Behaviors/Verbalizations/Mental Status: []Eye contact fair to good, casually dressed, motor activity appropriate, speech normal rate and tone, mood anxious and euthymic, congruent affect, thoughts linear and intact, no evidence of delusions or hallucinations. Reviewed pt's symptom tracker, reports suicidal ideation within pt baseline and denies active plan or intent as of this date 04/07/22. Client Response/Progress/Benefit: []Pt responded well to session, attentive and providing supportive feedback throughout. Pt reports feeling calm this morning. Identified current mental health wins as arriving early to meet with this therapist on this date in order to work through several recent stressors. Discussed wanting to avoid doing so by calling to cancel but reminded herself of the importance of not. Additional win noted as stopping herself from continuing to engage in unhealthy coping behaviors after leaving group yesterday and instead was willing to check-in with her supports. Current stressor noted as having to deal with uncomfortable confrontation in order to maintain a boundary with her mom. Able to identify skills she can use and helpful things to remind herself of in order to successfully do so. Recommended continued IOP tx to continue to improve consistency of healthy skill application, continue to improve consistent mood stability and application of distress tolerance skills, as well as prevent decompensation. Narrative Note: []
--- NOTE | 2022-04-07 10:05 | BH.SGPN.GN ---
Behaviors/Verbalizations/Mental Status: []Pt alert and oriented, casually dressed and groomed. Eye contact good. Motor activity appropriate. Speech within normal limits. Affect congruent, mood euthymic. Thoughts linear, logical, no signs of hallucinations or delusions. Client Response/Progress/Benefit: []Pt was an active participant in group discussions. Attentive during psychoeducation and participated in interactive discussions in which group defined self-care, discussed the benefits to self-care, and identified common myths surrounding self-care. Pt shared that self-care can help and pt has seen benefits of this. Pt and peers broke into smaller group and worked together to bust the myths associated with self-care. Pt?s group worked on myths of self-care means avoiding responsibilities, self-care is weakness, and self-care is just basic needs. Benefited from increased awareness of the self-care and its benefits. Progress noted in pt?s increased resilience when pt experiences a setback. ?Will continue in IOP to promote distress tolerance, improve self-compassion, and further improve daily functioning. Narrative Note: []
--- NOTE | 2022-04-07 11:10 | BH.SGPN.GN ---
Behaviors/Verbalizations/Mental Status: []Pt alert and oriented, casually dressed and groomed. Eye contact fair. Motor activity appropriate. Speech within normal limits. Affect congruent, mood anxious and dysthymic. Thoughts linear, logical, no signs of hallucinations or delusions. Client Response/Progress/Benefit: []Pt engaged participant AEB completing self-assessment worksheet and providing some input throughout discussion. Participated in group discussion on the various areas of self-care. Pt completed worksheet identifying current self-care practices and what self-care activities pt wants to start using. Pt selected physical self-care to begin practicing more consistently. Pt plans to do this by starting to exercise and reduce caffeine. Appeared to benefit from completing the self-care evaluation and gaining insights into current self-care practices, as well as identifying areas in which she would like to improve upon. Will continue IOP tx to prevent decompensation, improve boundaries with supports, and increase consistent application of skills.
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
--- NOTE | 2022-04-08 10:08 | BH.SGPN.GN ---
Behaviors/Verbalizations/Mental Status: []Pt alert and oriented, casually dressed and groomed. Eye contact good. Motor activity appropriate. Speech within normal limits- sarcastic. Affect congruent, mood euthymic. Thoughts linear, logical, no signs of hallucinations or delusions. Client Response/Progress/Benefit: []Pt was engaged participant AEB pt listening attentively to others and nodding. Attentive during psychoeducation on communication styles. Assisted group with identifying barriers of effective communication which included: mind-reading, body language, communicating with behaviors, and being vague. Pt reports that she most often uses passive aggressive or passive communication. Pt shared that being passive results in pt not getting her needs met, self-harming, and letting other people make decisions for pt. Benefited from increased awareness of different communication barriers, styles, and the importance of communicating effectively to improve mental wellness. Will continue IOP tx to improve distress tolerance skills, reduce self-harm urges, and reinforce boundary setting skills. ?? Narrative Note: []
--- NOTE | 2022-04-08 11:10 | BH.SGPN.GN ---
Behaviors/Verbalizations/Mental Status: []Client alert and oriented, casually dressed and appropriately groomed. Eye contact fair. Motor activity appropriate. Speech WNL. Affect congruent, mood anxious. Thoughts linear, logical, no signs of hallucinations or delusions. Client Response/Progress/Benefit: []Client responded well to session AEB client listening attentively to others and providing input during group discussion on the pay offs and costs of the different communication styles. Client able to connect how current communication style impacts mental health. Client engaged in activity, used assertive communication throughout in order to accomplish task. Connected with peers comments about importance of using assertive communication. Client reported she wants to work on being more assertive by setting firm boundaries with her . Client seemed to benefit from increasing awareness of healthy strategies to improve communication. Will continue IOP tx to improve emotion regulation, increase healthy coping skills, and prevent decompensation.
--- NOTE | 2022-04-11 09:00 | BH.SGPN.GN ---
Behaviors/Verbalizations/Mental Status: []Pt alert and oriented, neatly dressed and groomed. Eye contact good. Motor activity appropriate. Speech within normal limits. Affect congruent, mood anxious. Thoughts linear, logical, no signs of hallucinations or delusions. Reviewed pt?s symptom tracker, no risk for suicidal ideation, plan, or intent as of 04/11/22. Pt's scores are within her baseline. Client Response/Progress/Benefit: []Pt responded well to session, attentive and engaged. Pt reports feeling jumbled this morning. Pt shared this is her last week of IOP tx which is anxiety producing even though pt knows she has made progress. Pt stated she has not scheduled an outpatient therapy session because she feels shame for why I stopped going. Receptive to gentle thought challenging and pt was encouraged to schedule with her IOP therapist today. Pt's mental health wins today include cleaning her house over the weekend and also allowing herself to take breaks and enjoy the moment. Pt will continue IOP tx for one more week to establish aftercare and reinforce healthy coping skills. Narrative Note: []
--- NOTE | 2022-04-11 10:10 | BH.SGPN.GN ---
Behaviors/Verbalizations/Mental Status: []Eye contact is fair. Motor activity is appropriate. Appearance is casual and grooming tended to. Speech is Appropriate. Mood is anxious, dysthymic. Affect is congruent, at times incongruent AEB smiling when talking about loss of her baby. Thoughts are linear and logical. No evidence of psychosis. Client Response/Progress/Benefit: []Client receptive of session, engaged throughout AEB taking notes and at times providing input and examples to discussion. Appeared to connect with group topic of cognitive distortions and the impact of thought patterns on mental health, coping behaviors, and relationships. Client connected with distortion of mental filter. Client agreed she mental filter in the past led to staying in unhealthy relationships because filtered out the red flags. Client seemed to benefit from increased awareness of distorted thoughts and impact distortions can have on mental health. Will continue IOP tx to improve emotion regulation, challenge distortions, and prevent decompensation.
--- NOTE | 2022-04-11 11:10 | BH.SGPN.GN ---
Behaviors/Verbalizations/Mental Status: []Eye contact is good. Motor activity is appropriate. Appearance is casual. Speech is Appropriate. Mood is euthymic. Affect is congruent. Thoughts are linear and logical. No evidence of psychosis. Client Response/Progress/Benefit: []Pt was an active participant in the group activity which involved working with peers to answer questions related to psychoeducation on cognitive distortions. Questions were posed in the fashion of Jeopardy and the categories included; Identifying the Cognitive Distortion, Ways to reframe cognitive distortions, Examples of cognitive distortions, and other areas related to cognitive distortions. This was an engaging way to help reinforce psychoeducation and to help client retain the information through examples and practicing. Pt was engaged in the game and with peers on collaborating to determine the answers. Identified one take away from the group as ?A feeling or thought is not a fact?. Benefited from rehearsing ways to challenge/reframe cognitive distortions and by gaining increased insight into examples/definitions of 10 most common cognitive distortions. Will continue in IOP to maintain gains and prevent decompensation while completing aftercare planning. Narrative Note: []
--- NOTE | 2022-04-13 09:10 | BH.SGPN.GN ---
Behaviors/Verbalizations/Mental Status: []Eye contact fair to good, casually dressed, motor activity appropriate, speech normal rate and tone, mood anxious and euthymic, congruent affect, thoughts linear and intact, no evidence of delusions or hallucinations. Reviewed pt's symptom tracker, reports suicidal ideation within pt baseline and denies active plan or intent as of this date 04/13/22. Client Response/Progress/Benefit: []Pt responded well to session, attentive and providing supportive feedback throughout. Pt reports feeling anxious this morning as tomorrow is her last day in IOP tx. Reported she is proud of the progress she has made and trying to remind herself that she has the skills to maintain following IOP D/C. Pt reflected on current mental health wins which included being more present when spending time playing with her kids the previous day, as well as continuing to maintain consistency in her boundaries and using journaling to support herself in doing so. Appeared to benefit from group discussion and supportive environment. Recommended continued IOP tx to continue to improve consistency of healthy skill application, promote mood stability, as well as prevent decompensation. Narrative Note: []
--- NOTE | 2022-04-13 10:10 | BH.SGPN.GN ---
Behaviors/Verbalizations/Mental Status: []Eye contact is good. Motor activity is appropriate. Appearance is casual. Speech is Appropriate. Mood is anxious. Affect is congruent. Thoughts are linear and logical. No evidence of psychosis. Client Response/Progress/Benefit: []Pt was an engaged participant in group discussion. Attentive during psychoeducation on different types of anxiety disorders. Along with peers provided insight on the definition of anxiety as well as the impact of anxiety which include; not functioning, isolating at home, lack of personal growth, and avoidance. Pt identified her physical symptoms of anxiety which are tension, hives, migraines, and racing heart rate. Pt identified personal safety behaviors include withdrawing from peers, not answering messages, self-harm, and avoidance. Benefited from increased insight and awareness from group discussions. Pt is to continue IOP to reinforce healthy coping skills and establish aftercare. ? Narrative Note: []
--- NOTE | 2022-04-13 11:33 | PCM.BH.PN_ITS ---
Progress Note Progress Note: History of Present Illness/Interim History: The patient is a 26-year-old female with a history of depression, anxiety and PTSD who is seen in follow-up at the [facility] behavioral health IOP program. I last saw the patient 2 weeks ago and at that time no medication changes were made. The patient states that she feels she has really benefited from the IOP program and has learned valuable skills to help her deal with her mental health issues including including especially her urges to self-harm. According to the staff the patient has been engaged in the program but has continued to self-harm off-and-on. Despite this we feel she has reached her maximum benefit from the program and we will probably discharge that this week. The patient states that she last cut herself 1 week ago. She states that she has some anxiety about ending the IOP program but has been able to deal with that thus far. She denies any thoughts of self-harm this week at all. She denies any passive thoughts of . She does not have daily urges to self-harm now as she was before. Her mood is better and she is functioning better in her daily life. She denies passive thoughts of , urges to self-harm, suicidal ideation, homicidal ideation, hallucinations or delusions. Current Psychiatric Medications: [] Prozac 40 mg p.o. daily; Seroquel increased to 150 mg p.o. nightly 2 weeks ago; prazosin 2 mg p.o. nightly; Vistaril 25 mg about once a week now as needed for anxiety. Mental Status Examination: [] The patient is a 26-year-old female who appears normal for stated age and is casually dressed and groomed with good hygiene. She has no psychomotor agitation or retardation and is ambulatory with a normal gait. Speech is normal rate and rhythm and fluent with no pressure. Eye contact is good. Mood is euthymic. Affect is full and normal. Thought process is goal-directed and organized. Thought content: There is no evidence of thoughts of self-harm, passive thoughts of , suicidal ideation, homicidal ideation, hallucinations or delusions. Reality testing is intact. Insight is fair to good. Impulsivity is high. Judgment is intact. Diagnoses: [] 1. Borderline personality disorder 2. Bipolar disorder, NOS (F31.9) 3. Generalized anxiety disorder 4. PTSD 5. Primary support and financial issues Plan: [] The patient will be discharged from the IOP program in a few days as the structure, support, education and group therapy has benefited the patient and her son her symptoms have improved. She felt safe during the interview and if it anytime she does not feel safe she will let us know or go to the emergency room. The risk, options possible complications and side effects of the medications were again discussed with the patient and she understands and accepts these. The patient will continue to follow-up with her outpatient providers and will continue on her current medication regimen and no changes were made today in her medications.
--- NOTE | 2022-04-13 15:30 | BH.MDN_ITS ---
Multi-Disciplinary Note - Note 45-min Individual Time Started:: 08:31 Date: 04/13/22 Purpose of session/treatment goals addressed:: To review progress, address current stressors and strategies to help cope with these stressors. Another goal was to discuss discharge and aftercare. Eye Contact:: Good Motor Activity:: Appropriate Appearance:: Casual Speech:: Appropriate Mood:: Euthymic, Anxious Affect:: Congruent Thoughts:: Linear, Logical, No evidence of hallucinations/delusions noted Staff Interventions:: thought challenging, discharge planning, strengths perspective, reviewed DSM-5, other - reviewed strategies for continued maintenance Client Response:: Pt responded well to session, open to meeting with therapist. Pt shared she had a good week overall, despite ongoing stressors with her and mother. Pt shared that she is anxious about completing the IOP program as she has felt very supported and capable of making several changes throughout the duration of tx. Pt went on to discuss struggling with anxious th oughts that she is going to ?either be ?okay? or massively fail? and expressed brief moments where she has felt like self-sabotaging as a result. Connected with common trauma responses and how this could impact her initial ability and willingness to accept the progress she has made and skills she now has to continue to maintain. Did well to challenge anxiety related distortions and reflect upon overall areas of progress. Pt reports primarily seeing progress in her ability to establish healthier boundaries using assertive communication, prioritize self-care, and learn healthier ways for coping with overwhelming thoughts and emotions. Shared reduced self-harming, no longer experiencing active suicidal ideation, and reduced anxiety and depression as a result. Identified finding grounding, thought challenging, and reminding herself she does not have control over other?s behaviors/thoughts has been most helpful in continuing to maintain the gains she has made so far. Pt continues to set goals for her future and she reports improved ability to set boundaries and advocate for her own mental health needs. Pt additionally reports plans to begin grief counseling to further improve her ability to coping with ongoing trauma symptoms associated. Pt wants to do IOP aftercare and is scheduled to begin 04/21/22. Risks/Concerns:: Pt denies any suicidal ideations, plan, or intent as of 04/13/22. Continues to report self-harming urges but denies any active plan or intention. Progress Toward Goals/Plan:: Progress noted. Pt self-reports managing stress much better than previously, improved ability to be present and enjoy time with her children, able to better manage her emotions when faced with unexpected stressors, improved ability to establish and maintain boundaries, as well as overall improved self-care. Pt is still working on regulating her emotions and her relationship with her , but this is improving. Pt continues to endorse anxiety, and negative core beliefs about self, but overall reports improved mood. Pt will continue IOP tx for one more session to reinforce healthy coping skills. Time Stopped:: 09:08
--- NOTE | 2022-04-13 15:30 | BH.AFTERPLAN ---
Aftercare Plan - Demographics Treatment End Date:: 04/14/22 Psychiatrist:: Svitlana Lainez Psychiatrist Office #:: [phone] [facility] Therapist:: Nicole Galdamez Therapist Phone #:: [phone] - Plan Details Progress/Aftercare Plan Details:: Pt has made significant strides since starting IOP as shown by her improved mood, reduced symptoms by 18% overall, no longer reporting suicidal ideations, and increased ability to manage negative thinking and daily stressors. Pt's depression decreased by 50% since admission and anxiety has decreased by 30%. When Pt started IOP she was experiencing significant anxiety and depression that was keeping pt from living life and impacting her functioning both at home and in her relationships. Now, Pt can catch and manage thoughts that reinforced anxiety, irritability, and self-doubt causing increased suicidal ideation. Pt not has the ability to more effectively use healthy coping skills, and she feels more confident in her abilities and decision making. Pt is focusing on her future goals of finding a job that provides more financial independence, she is setting healthy boundaries, and she is better able to reflect and practice self-care. Pt was highly active in both group and individual therapy sessions. Pt contributed to group discussions, offered emotional support to peers, and consistently followed through with her goals. In individual sessions, Pt was receptive to feedback, consistent with homework, and willing to push herself. Pt?s high motivation, willingness to challenge her perspective, and honesty were likely the reason for her significant progress. Pt plans to attend [facility] aftercare, as well as follow up with outpatient providers, as well as begin grief counseling through Hospice. Strategies for Success:: ?Opposite Action!!! ? do what will help you, even when your brain is saying don?t do it, even when it feels uncomfortable, even when you are tempted to take the easy or more comfortable way out. ?Setting and following through with boundaries with yourself and others ? remember not to take on things that may be causing you unnecessary extra stress. It?s okay to not fix things for others sometimes. You can still be a support to others and not take on everything for yourself. ?Continue to challenge negative thought patterns by trying to look at things from the other perspective, asking yourself ?Am I using a distortion?? or ?Is there another way to approach or think about this??. ?Keep reaching out to HEALTHY friends and supports! There are people who care and want to see you doing well! Remember, it?s okay to ask for help. We all need it from time to time. Remember, your supports are there for you to reach out to. ?Continue to make time for yourself! Self-care is rodríguez to maintaining progress and staying level! This includes sometimes doing those hard things that may require setting boundaries of using opposite action. Remind yourself you deserve to take time to care for you AND ASK YOURSELF ?What would I be losing if I didn?t do this for myself??. ?Small steps to physical, mental, and emotional wellness. Check-in with yourself regularly in order to identify what may be stressing you out, allow yourself to take small breaks if you find yourself getting overwhelmed. Don?t forget to keep setting SMART goals! - Appointments Appointments/Referrals to Other Services:: Pt will follow up with her outpatient psychiatrist, Dr. Swanson, for ongoing medication management, she reports she has an appointment in 3 weeks. Pt plans to attend [facility] aftercare if she can get this approved with her employer, as well as follow up with outpatient counselor, Raffi, at [facility] and has an appointment scheduled for 04/21/22 at 4pm. Pt has reached out to hospice to begin grief counseling and is awaiting a call back to schedule an intake appointment. - Medications Home Medications: Home Medications albuterol sulfate 90 mcg/actuation aerosol inhaler 1 puff inhalation Q4H PRN PRN Asthma 08/17/17 epinephrine 0.3 mg/0.3 mL injection, auto-injector 0.3 mg IM DAILY PRN Allergies 08/17/17 fexofenadine 180 mg tablet 180 mg PO DAILY Check with primary doctor 06/25/19 ascorbic acid (vitamin C) 500 mg tablet,extended release (Vitamin C ER) 500 mg PO DAILY Check with primary doctor 06/26/19 coenzyme [id number] 100 mg-100 unit capsule 1 cap PO DAILY Check with primary doctor 06/26/19 pantoprazole 40 mg tablet,delayed release 40 mg PO BID Check with primary doctor 02/08/21 ipratropium bromide 21 mcg (0.03 %) nasal spray 2 spray intranasal BID Check with primary doctor 03/11/21 pyridoxine (vitamin B6) 500 mg tablet 500 mg PO DAILY Check with primary doctor 04/05/21 fluticasone 250 mcg-salmeterol 50 mcg/dose blistr powdr for inhalation (Advair Diskus) 1 inh inhalation BID Check with primary doctor 08/03/21 tiotropium bromide 1.25 mcg/actuation mist for inhalation (Spiriva Respimat) 2 puff inhalation DAILY ASTHMA 08/03/21 ferrous sulfate 325 mg (65 mg iron) tablet 325 mg PO BID 02/23/22 hydroxyzine HCl 25 mg tablet 25 mg PO TID PRN anxiety #90 tabs 03/01/22 vitamin with calcium no.72-iron 27 mg-folic acid 1 mg tablet ( Vitamins Plus Low Iron) 1 tab PO DAILY 03/01/22 fluoxetine 20 mg tablet 40 mg PO DAILY #30 tabs 03/31/22 prazosin 2 mg capsule 2 mg PO QHS 30 days #30 caps 03/31/22 quetiapine 150 mg tablet 150 mg PO QHS #30 tabs 03/31/22
--- NOTE | 2022-04-14 09:05 | BH.SGPN.GN ---
Behaviors/Verbalizations/Mental Status: [] Eye contact is good. Motor activity is appropriate. Appearance is casual. Speech is Appropriate. Mood is euthymic. Affect is full. Thoughts are linear and logical. No evidence of psychosis. Reviewed daily check in sheet and suicidal ideations were at baseline. Client Response/Progress/Benefit: [] Pt was an active participant in group discussion. Attentive. Emotion for today is nervous and excited. Shared that today is her last day in IOP level of care. Identified group on cognitive distortions as being the most helpful while in [facility]. She is able to identify the progress that she has made since entering [facility] in regards to mood management, decreased self-harm, and setting boundaries. Increased confidence in her ability to manage stressors and distress. She has a job interview this afternoon which she is very excited about. Believes that a FT job will give her more financial independence, help with routine, provide distraction, and give her purpose. Benefited from group support, encouragement, and feedback. Plan is to discharge from [facility] today. Narrative Note: []
--- NOTE | 2022-04-14 10:10 | BH.SGPN.GN ---
Behaviors/Verbalizations/Mental Status: []Pt alert and oriented, casually dressed and groomed. Eye contact good. Motor activity appropriate. Speech within normal limits. Affect congruent, mood anxious and euthymic. Thoughts linear, logical, no signs of hallucinations or delusions. Client Response/Progress/Benefit: []Pt responded well to session AEB taking notes throughout, providing input, and listening attentively to others. Pt was attentive throughout group activity identifying famous individuals and how they overcame failure to be successful. Pt helped group identify how fear of failure can impact mental health and relationships. Pt personally identified fear of failure can lead to self-sabotage and can maintain unhealthy relationships. Pt participated in experiential activity and used group for support as needed. Appeared to benefit from increased knowledge of fear of failure. ?Will d/c from IOP tx and continue with individual outpatient services to prevent decompensation, challenge all or nothing thinking, and increase mood stability. ? Narrative Note: []
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
== END 2022-04-14 12:32 | disposition home or self-care (01) ==
LOC: BHIOP 07:29
PROVIDERS: PCP Student in an Organized Health Care Education/Training Program; Referring Provider Psychiatry & Neurology Psychiatry; Visit Provider Psychiatry & Neurology Psychiatry
DX: F60.3 Borderline personality disorder; F31.9 Bipolar disorder, unspecified; F41.1 Generalized anxiety disorder; F43.10 Post-traumatic stress disorder, unspecified; Z79.899 Other long term (current) drug therapy
CPT/HCPCS: 99213; H2012; H2020; S9480; 90834

== ENCOUNTER 2022-04-21 13:00 | Outpatient (RCR) | payer MEDICAID, SELFPAY ==
--- NOTE | 2022-04-21 14:00 | BH.COMM ---
Communication Note - Communication with Client Communication Note: Presented completed IOP and presents today to starting relapse prevention group which meets once weekly (1.5 hours) for 8 weeks. Case discussed with Dr. John with plan to admit with dx of F31.81
--- NOTE | 2022-04-21 14:00 | BH.SGPN.GN ---
Behaviors/Verbalizations/Mental Status: []Client alert and oriented, casually dressed and groomed. Eye contact good. Motor activity appropriate. Speech within normal limits. Affect congruent, mood anxious and euthymic. Thoughts linear, logical, no signs of hallucinations or delusions. Client Response/Progress/Benefit: []Pt receptive of session, engaged throughout. Pt completed the aftercare self-reflection worksheet sharing they saw their therapist today and psychiatrist recently, they are taking medications as prescribed, and have been using journaling, opposite action, and positive self-talk as coping skills. Receptive of discussion on healthy habits and habit formation, as well its importance in maintaining mental health stability. Pt worked cooperatively with group to identify benefits of developing and maintaining healthy habits. Engaged in brainstorming strategies for identifying and changing unhealthy habit patterns. Pt seemed to benefit from support from peers and increasing understanding of healthy habit formation benefits and strategies. Will continue aftercare tx to maintain gains and prevent decompensation. Narrative Note: []
--- NOTE | 2022-04-21 15:11 | BH.MTP_ITS ---
Master Treatment Plan - Patient Information Program Physician:: Dr. Svitlana Yin Primary Therapist:: KELLY Montilla - Psychiatric Diagnoses Psychiatric Diagnoses:: 1. Borderline personality disorder. 2. Bipolar disorder, NOS (F31.9). 3. Generalized anxiety disorder. 4. PTSD Diagnosis Code(s):: F 31.9 - Estimated LOS Estimated LOS (in weeks):: 8 Problem/Goal #1 - Problem/Goal #1 Stated Goal:: client will maintain or see a reduction in symptoms AEB client score on the DSM 5 cross-cutting measure and improve client's daily functioning. - Objectives Objective #1 Stated Objective: Client will continue to consistently apply healthy coping skills to maintain progress made in IOP tx. Interventions: Through group therapy, client will review warning signs and triggers as well as healthy coping skills learned in IOP tx to successfully maintain gains while transitioning into outpatient therapy. Discharge Criteria: Client will have accomplished this goal when client's score on the DSM-5 cross-cutting measure has either maintained or reduced over a 12 week period. Target Date: 06/16/22 Review Date: 05/19/22 Objective #2 Stated Objective: Client will learn and utilize 2-3 maintenance strategies to prevent decompensation. Interventions: Through group therapy, client will be provided with education on healthy maintenance behaviors, relapse prevention techniques, and healthy coping strategies Discharge Criteria: Client will have accomplished this goal when can report us ing at least 2 maintenance skills to prevent decompensation. Target Date: 06/16/22 Review Date: 05/19/22
--- NOTE | 2022-04-28 14:00 | BH.SGPN.GN ---
Behaviors/Verbalizations/Mental Status: []Pt alert and oriented, casually dressed and groomed. Eye contact good. Motor activity appropriate. Speech within normal limits. Affect congruent, mood euthymic. Thoughts linear, logical, no signs of hallucinations or delusions. Client Response/Progress/Benefit: []Pt receptive of session, engaged throughout. Pt shared she has been consistent with counseling and medications. Pt did not see her psychiatrist this week. Pt reports using sensory items, playing music, and spending time with her children to cope with daily stressors. Receptive of discussion on sitting with the uncomfortable and emotional urges. Pt contributed to the discussion of distress tolerance and how building distress tolerance can help improve mood stability and resilience. Pt selected taking her kids somewhere alone without additional support to build distress tolerance. Pt will practice mindfulness skills and self-talk to cope with the anxiety in the moment and build confidence. Pt seemed to benefit from support from peers and increasing understanding of distress tolerance. Will continue IOP aftercare group to maintain gains and reinforce healthy coping skills Narrative Note: []
== END 2022-05-03 23:59 ==
LOC: BHOG 13:00
PROVIDERS: PCP Student in an Organized Health Care Education/Training Program; Referring Provider Psychiatry & Neurology Psychiatry; Visit Provider Psychiatry & Neurology Psychiatry
DX: F31.9 Bipolar disorder, unspecified (principal); F43.10 Post-traumatic stress disorder, unspecified; F41.1 Generalized anxiety disorder; F60.3 Borderline personality disorder
CPT/HCPCS: 90853

== ENCOUNTER 2022-05-04 07:29 | Outpatient (RCR) | payer MEDICAID, SELFPAY ==
--- NOTE | 2022-05-05 20:30 | BH.DS_ITS ---
Discharge Summary - Demographics Date of Admission:: 04/21/22 Discharge Date: 05/05/22 Presenting Problems at Admission:: Pt discharged from IOP tx and transitioned to [facility] aftercare to maintain gains Pt made in [facility] and to reinforce healthy coping skills. At admission to [facility] aftercare, pt continued to report some symptoms of depression and anxiety, but of reduced intensity. Pt was also experiencing the stress of figuring out the next step for her future/career, relationship issues, and ongoing childcare stress. Discharge Diagnoses:: 1. Borderline personality disorder. 2. Bipolar disorder, NOS (F31.9). 3. Generalized anxiety disorder. 4. PTSD Reason for Discharge:: Pt stopped attending IOP aftercare and her last day was 04/28/22. Pt discharged as pt reported her schedule conflicted with ability to follow the attendance requirement for the program. - Treatment Progress During Treatment & Response: Pt progress limited as pt attended IOP aftercare twice. Pt self-reported she was taking medication as prescribed, and she was following up with her outpatient counseling and psychiatrist. which was part of her IOP discharge plan. Issues Still to be Addressed:: Pt could benefit from continued reinforcement of healthy coping skills, challenging distorted thought patterns and working through her negative core beliefs and trauma triggers. Discharge Recommendations/Instructions:: Pt will follow up with her outpatient psychiatrist, Dr. Vargas, for medication management. [facility]. Discharge Handout: Complete Discharge Handout with client on aftercare options and continuity of care.
--- NOTE | 2022-08-25 08:22 | BH.DS ---
Discharge Summary - Demographics Date of Admission:: 04/21/22 Discharge Date: 04/28/22 Presenting Problems at Admission:: Pt discharged from IOP tx and transitioned to [facility] aftercare to maintain gains Pt made in [facility] and to reinforce healthy coping skills. At admission to [facility] aftercare, pt continued to report some symptoms of depression and anxiety, but of reduced intensity. Pt was also experiencing the stress of figuring out the next step for her future/career, relationship issues, and ongoing childcare stress. Reason for Discharge:: Pt stopped attending IOP aftercare and her last day was 04/28/22. Pt discharged as pt reported her schedule conflicted with ability to follow the attendance requirement for the program. - Treatment Progress During Treatment & Response: Pt progress limited as pt attended IOP aftercare twice. Pt self-reported she was taking medication as prescribed, and she was following up with her outpatient counseling and psychiatrist. which was part of her IOP discharge plan. Issues Still to be Addressed:: Pt could benefit from continued reinforcement of healthy coping skills, challenging distorted thought patterns and working through her negative core beliefs and trauma triggers. Discharge Recommendations/Instructions:: Pt will follow up with her outpatient psychiatrist, Dr. Vargas, for medication management. Pt will continue with [facility] for individual counseling. Discharge Handout: Complete Discharge Handout with client on aftercare options and continuity of care.
== END 2022-05-24 14:34 | disposition home or self-care (01) ==
LOC: BHOG 07:29
PROVIDERS: PCP Student in an Organized Health Care Education/Training Program; Referring Provider Psychiatry & Neurology Psychiatry; Visit Provider Psychiatry & Neurology Psychiatry
DX: F31.9 Bipolar disorder, unspecified (principal); F41.1 Generalized anxiety disorder; F43.10 Post-traumatic stress disorder, unspecified

== ENCOUNTER 2022-07-19 23:23 | Emergency (ER) | payer MEDICAID, SELFPAY ==
[2022-07-19 23:23] VITALS: BP 134/94; PULSE 97; RESP 15; TEMP 36.5; O2SAT 98; BMI 27.4
[2022-07-20] VITALS (8 sets, daily range): BP systolic 90–106; BP diastolic 55–74; PULSE 96–128; RESP 12–18; O2SAT 91–99
--- NOTE | 2022-07-20 00:26 | EKG12_ITS ---
Test Reason : OD Blood Pressure : / mmHG Vent. Rate : 099 BPM Atrial Rate : 099 BPM P-R Int : 134 ms QRS Dur : 084 ms QT Int : 388 ms P-R-T Axes : 084 082 078 degrees QTc Int : 497 ms Normal sinus rhythm with sinus arrhythmia T wave abnormality, consider anterior ischemia Abnormal ECG Confirmed by ANDREINA FREEMAN, LILIANA ([id number]), state editor KIMBERLY PLASCENCIA ([id number]) on 07/25/2022 10:50:27 AM Referred By: SAMANTHA Confirmed By:LILIANA HDZ MD
--- NOTE | 2022-07-20 00:38 | EKG12_ITS ---
Test Reason : OD Blood Pressure : / mmHG Vent. Rate : 106 BPM Atrial Rate : 106 BPM P-R Int : 136 ms QRS Dur : 082 ms QT Int : 450 ms P-R-T Axes : -25 -27 -11 degrees QTc Int : 597 ms Sinus tachycardia Nonspecific T wave abnormality Prolonged QT Abnormal ECG When compared with ECG of 28-JAN-2022 14:17, Nonspecific T wave abnormality now evident in Anterolateral leads QT has lengthened Confirmed by ANDREINA FREEMAN, LILIANA ([id number]), features editor KIMBERLY PLASCENCIA ([id number]) on 07/26/2022 10:49:15 AM Referred By: SAMANTHA Confirmed By:LILIANA HDZ MD
[2022-07-20 00:53] LABS: Absolute Lymphocyte Count 1.87 X10^3/uL (0.83-4.51); Basophil# 0.04 X10^3/uL; Basophil% 0.3 % (0-1); Eosinophil# 0.05 X10^3/uL; Eosinophils% 0.4 % (0-5); Hematocrit 45.1 % (37-47); Hemoglobin 15.7 g/dL (12.0-15.0); Lymphocyte # 1.87 X10^3/ul (0.83-4.51); Lymphocyte % 15.8 % (19-41); Mean Corp Hgb Conc 34.8 g/dL (32-36); Mean Corpuscular Hgb 32.5 pg (27.0-32.0); Mean Corpuscular Volume 93.4 fL (81-99); Monocyte% 6.8 % (0-10); NRBC Flagged by Analyzer 0 % (0-5); Neutrophil # 9.02 X10^3/uL (2.7-7.7); Neutrophil % 76.4 % (47-70); Platelet Count 282 K/mm3 (150-450); RBC Distribution Width CV 12.2 % (11.6-14.6); RBC Distribution Width SD 42.2 fl (35.1-43.9); Red Blood Count 4.83 M/mm3 (4.2-5.4); White Blood Count 11.8 K/mm3 (4.4-11.0)
[2022-07-20 01:00] LABS: Internal QC Validated? YES +Cl - CLEAR BKGD; Pregnancy, Urine Negative Negative
[2022-07-20 01:16] LABS: AST(SGOT) 38 U/L (15-37); Alanine Aminotransfer ALT/SGPT 26 U/L (13-56); Albumin, Serum 3.9 g/dL (3.2-5.0); Alkaline Phosphatase 87 U/L (45-117); Anion Gap 5 (5-15); BUN 10 mg/dL (7-18); BUN/Creat Ratio 11.5 RATIO (10-20); Bilirubin, Direct 0.09 mg/dL (0.00-0.30); Chloride 106 mmol/L (98-107); Creatinine, Serum 0.87 mg/dL (0.55-1.02); EST Glomerular Filtration Rate 82 mL/min (>60); Est Glom Filt Rate - Afr Amer 99 mL/min (>60); Estimated Creatinine Clearance 83.88 ml/min; Globulin 3.6 g/dL (2.2-4.2); Glucose 111 mg/dL (74-106); Magnesium 2.2 mg/dL (1.6-2.6); Potassium 3.7 mmol/L (3.5-5.1); Protein, Total 7.5 g/dL (6.4-8.2); Sodium Level 138 mmol/L (136-145)
[2022-07-20 01:19] LABS: Amphetamine Urine VISTA NEGATIVE (<1000 ng/mL); Barbiturate Urine VISTA NEGATIVE (< 200 ng/mL); Benzodiazepine Urine VISTA NEGATIVE (< 200 ng/mL); Cocaine Urine VISTA NEGATIVE (< 300 ng/mL); Ecstacy Urine VISTA NEGATIVE (< 500 ng/mL); Methadone Urine VISTA NEGATIVE (< 300 ng/mL); PCP Urine VISTA NEGATIVE (< 25 ng/mL); THC Urine VISTA NEGATIVE (< 50 ng/mL); Vista UDS pH Range 6
[2022-07-20 01:20] LABS: Acetaminophen (Tylenol) Level < 2.0 ug/mL (10.0-30.0); Alcohol, Blood (Medical)-Serum < 3.0 mg/dL; Salicylate < 1.7 mg/dL (2.8-20.0)
--- NOTE | 2022-07-20 02:27 | NURSING ---
CALLED [facility] AT 0225 AND FAXED CHART
--- NOTE | 2022-07-20 06:48 | ED.RN ---
ASSESSMENT FAXED TO US FROM [facility]
--- NOTE | 2022-07-20 08:00 | EX.ED.DYSGE1 ---
HPI History of Present Illness Chief Complaint: Suicidal Narrative Narrative: Patient is a 26-year-old female brought in by EMS after possibly overdosing on Seroquel. Patient reports that is the 1 year anniversary of her child stillbirth and secondary to this she is being greatly distressed and had increased depression. She had been prescribed Seroquel in the past secondary to sleep and she is to take 1 pill by mouth at bedtime. Reported the patient took 26 or 27 of the pills this evening and attempt to hurt herself. Please note that this information is coming from EMS as the patient is not forthcoming with information. It is unknown what time patient would have taken the medication PFSH [facility] Medical History Allergic rhinitis Anxiety Asthma Bipolar disorder, unspecified Bipolar II disorder Borderline personality disorder Chronic cough Depression Gastric reflux Generalized anxiety disorder History of IBS History of steroid therapy IBS (irritable bowel syndrome) Low-lying placenta in second trimester Non-smoker Posterior auricular lymphadenopathy PTSD (post-traumatic stress disorder) Suicide attempt Vestibular migraine Wears contact lenses Wears glasses Home Medications albuterol sulfate 90 mcg/actuation aerosol inhaler 1 puff inhalation Q4H PRN PRN Asthma 08/17/17 [History Last Taken 08/11/17] epinephrine 0.3 mg/0.3 mL injection, auto-injector 0.3 mg IM DAILY PRN Allergies 08/17/17 [History Last Taken Unknown] fexofenadine 180 mg tablet 180 mg PO DAILY Check with primary doctor 06/25/19 [History Last Taken Unknown] ascorbic acid (vitamin C) 500 mg tablet,extended release (Vitamin C ER) 500 mg PO DAILY Check with primary doctor 06/26/19 [History Last Taken Unknown] coenzyme [id number] E 100 mg-100 unit capsule 1 cap PO DAILY Check with primary doctor 06/26/19 [History Last Taken Unknown] pantoprazole 40 mg tablet,delayed release 40 mg PO BID Check with primary doctor 02/08/21 [History Last Taken 02/15/21 07:00] ipratropium bromide 21 mcg (0.03 %) nasal spray 2 spray intranasal BID Check with primary doctor 03/11/21 [History Last Taken Unknown] pyridoxine (vitamin B6) 500 mg tablet 500 mg PO DAILY Check with primary doctor 04/05/21 [History Last Taken Unknown] fluticasone 250 mcg-salmeterol 50 mcg/dose blistr powdr for inhalation (Advair Diskus) 1 inh inhalation BID Check with primary doctor 08/03/21 [History Last Taken Unknown] tiotropium bromide 1.25 mcg/actuation mist for inhalation (Spiriva Respimat) 2 puff inhalation DAILY ASTHMA 08/03/21 [History Last Taken Unknown] ferrous sulfate 325 mg (65 mg iron) tablet 325 mg PO BID 02/23/22 [History Last Taken Unknown] vitamin with calcium no.72-iron 27 mg-folic acid 1 mg tablet ( Vitamins Plus Low Iron) 1 tab PO DAILY 03/01/22 [History Last Taken Unknown] hydroxyzine HCl 25 mg tablet 25 mg PO TID PRN anxiety #90 tabs 05/04/22 [Rx Last Taken Unknown] cariprazine 1.5 mg capsule (Vraylar) 1.5 mg PO DAILY #30 caps 07/04/22 [Rx Last Taken Unknown] fluoxetine 40 mg capsule 40 mg PO DAILY #30 caps 07/04/22 [Rx Last Taken Unknown] prazosin 1 mg capsule 1 mg PO QHS 30 days #30 caps 07/04/22 [Rx Last Taken Unknown] quetiapine 50 mg tablet 50 mg PO QHS sleep #30 tabs 07/14/22 [Rx Last Taken Unknown] Allergy/AdvReac Type Severity Reaction Status Date / Time COVID-19 vaccine, mRNA, Allergy Severe Anaphylaxis Verified 07/19/22 23:36 [id number], bee venom protein (honey bee) Allergy Anaphylaxis Verified 07/19/22 23:36 omalizumab [From Xolair] Allergy Anaphylaxis Verified 07/19/22 23:36 prochlorperazine edisylate Allergy Swelling Verified 07/19/22 23:36 [From Compazine] prochlorperazine maleate Allergy Swelling Verified 07/19/22 23:36 [From Compazine] Family History Brother Asthma Mother Hypertension Heart disease Father Depression Heart disease Hyperlipidemia Hypertension Surgical History Hx of colonoscopy Hx of dilation and curettage Social History household members: family current occupational status: unemployed pets and animals: Yes Smoking Status: Never smoker second hand exposure: No alcohol intake: never substance use type: does not use seatbelt use: always do you feel safe at home: Yes additional social history: trans male, - Humza ROS ROS ED ROS Narrative Unable to obtain review of systems as patient is lethargic/obtunded with GCS of 13 and unwillingness to respond Review of Systems ROS Unobtainable: due to mental status EXAM Physical Exam Const Vital Signs: 07/19/22 23:23 07/20/22 01:04 07/20/22 03:00 Temperature 97.7 F L Temperature Source Temporal Pulse Rate 97 96 128 H Respiratory Rate 15 16 12 Blood Pressure 134/94 H 105/74 90/55 L Blood Pressure Mean 107 84 66 Pulse Ox 98 97 99 Oxygen Delivery Method Room Air Room Air Room Air 07/20/22 05:00 07/20/22 07:00 Temperature Temperature Source Pulse Rate 109 H Respiratory Rate 15 15 Blood Pressure 104/71 Blood Pressure Mean 82 Pulse Ox 91 Oxygen Delivery Method Room Air Room Air Positive well nourished and well developed General Appearance ED: well developed HEENT HEENT Narrative: No tongue or lip swelling no oral lesions no airway edema or compromise Eyes PERRL and EOMs intact bilaterally Neck supple Neck Narrative: No nuchal rigidity or meningeal signs present Chest Wall palpation of chest normal Resp normal respiratory effort and clear to auscultation bilaterally Resp Narrative: No nasal flaring retractions tachypnea or accessory muscle use Cardio regular rhythm Rate: tachycardic and other Other Details: Tachycardic rate with regular rhythm Radial pulses are plus 2 out of 4 bilaterally are equal and symmetric GI normal to inspection, nondistended, normoactive bowel sounds, non-tender, non-distended and no masses GI Narrative: No voluntary guarding or rigidity no pulsatile mass Auscultation: normoactive bowel sounds Palpation: soft Extremity normal to inspection Neuro CN's II-XII intact bilaterally Neuro Narrative: Patient is obtunded with GCS of 13 but will awake to voice but then quickly fall back asleep. There is no focal neurologic deficit is noted. Sensorium / Orientation: orientation impaired Psych Psych Narrative: Patient has a depressed/flat affect Skin no rashes or lesions noted Skin Narrative: Superficial scars are noted along the bilateral forearms greatest on the left secondary to previous cutting events. No new areas of trauma noted MDM MDM MDM Narrative Medical decision making narrative: Patient presented to the ER slightly hypertensive and tachycardic which is consistent with Seroquel overdose. She is obtunded with GCS of 13 but awakes to voice and is protecting her airway so there is no need for intubation. Based on her suicide attempt she will need to be monitored in the ER and medically cleared so that she can be safe for psychiatric placement. The case was discussed with poison control based on the Seroquel overdose. They recommend the patient be watched from 6 hours from time of ingestion as she took immediate release Seroquel and not extended release. They recommend supportive care if needed. The patient would not convey when she took the pills and therefore 6-hour clock for medical clearance was started upon arrival to the ER. The patient has been in the ER for over 6 hours she is hemodynamically stable she continues to protect her airway and is not requiring further intervention secondary to the Seroquel overdose and the remainder of the labs revealed no clinically significant finding. The patient was evaluated by crisis center who do agree with placement. The patient is awaiting acceptance at this time and therefore be signed out to the daytime physician Dr. Feliz. The patient is medically cleared from emergency room standpoint for transfer/placement to a psychiatric hospital History & Record Review Discussion w/independent historian: EMS personnel and Patient Lab Data Attestation: I reviewed the patient's lab results. Labs: Laboratory Results - last 24 hr 07/19/22 07/19/22 07/20/22 23:45 23:45 00:22 WBC 11.8 H RBC 4.83 Hgb 15.7 H Hct 45.1 MCV 93.4 MCH 32.5 H MCHC 34.8 RDW Std Deviation 42.2 RDW Coeff of Win 12.2 Plt Count 282 MPV 11.0 Immature Gran % (Auto) 0.300 Neut % (Auto) 76.4 H Lymph % (Auto) 15.8 L Hudson % (Auto) 6.8 Eos % (Auto) 0.4 Baso % (Auto) 0.3 Absolute Neuts (auto) 9.0 H Absolute Lymphs (auto) 1.87 Nucleated RBC % 0 Sodium Potassium Chloride Carbon Dioxide Anion Gap BUN Creatinine Estim Creat Clear Calc Est GFR (MDRD) Af Amer Est GFR (MDRD) Non-Af BUN/Creatinine Ratio Glucose Calcium Magnesium Total Bilirubin Direct Bilirubin AST ALT Alkaline Phosphatase Total Protein Albumin Globulin Urine Test Negative Salicylates Urine Opiates Screen NEGATIVE Urine Methadone Screen NEGATIVE Acetaminophen Ur Barbiturates Screen NEGATIVE Ur Phencyclidine Scrn NEGATIVE Ur Amphetamines Screen NEGATIVE MDMA (Ecstasy) Screen NEGATIVE U Benzodiazepines Scrn NEGATIVE Urine Cocaine Screen NEGATIVE U Cannabinoids Screen NEGATIVE Ur Drug Screen Comment Ethyl Alcohol 07/20/22 07/20/22 00:22 00:22 WBC RBC Hgb Hct MCV MCH MCHC RDW Std Deviation RDW Coeff of Win Plt Count MPV Immature Gran % (Auto) Neut % (Auto) Lymph % (Auto) Hudson % (Auto) Eos % (Auto) Baso % (Auto) Absolute Neuts (auto) Absolute Lymphs (auto) Nucleated RBC % Sodium 138 Potassium 3.7 Chloride 106 Carbon Dioxide 27.0 Anion Gap 5 BUN 10 Creatinine 0.87 Estim Creat Clear Calc 83.88 Est GFR (MDRD) Af Amer 99 Est GFR (MDRD) Non-Af 82 BUN/Creatinine Ratio 11.5 Glucose 111 H Calcium 9.0 Magnesium 2.2 Total Bilirubin 0.40 Direct Bilirubin 0.09 AST 38 H ALT 26 Alkaline Phosphatase 87 Total Protein 7.5 Albumin 3.9 Globulin 3.6 Urine Test Salicylates < 1.7 L Urine Opiates Screen Urine Methadone Screen Acetaminophen < 2.0 L Ur Barbiturates Screen Ur Phencyclidine Scrn Ur Amphetamines Screen MDMA (Ecstasy) Screen U Benzodiazepines Scrn Urine Cocaine Screen U Cannabinoids Screen Ur Drug Screen Comment Ethyl Alcohol < 3.0 Discharge Plan Triage Chief Complaint: Suicidal ED Provider: Mateo Reynolds Dx/Rx/DC Orders Clinical Impression: Depression with suicidal ideation, Suicide attempt, Bipolar II disorder Prescriptions: No Action fexofenadine 180 mg tablet 180 mg PO DAILY ascorbic acid (vitamin C) [Vitamin C] 500 mg tablet extended release 500 mg PO DAILY coenzyme [id number] E 100 mg-100 unit capsule 100-100 mg-unit capsule 1 cap PO DAILY ipratropium bromide 21 mcg (0.03 %) spray,non-aerosol 2 spray intranasal BID Rx Instructions: administer into each nostril pyridoxine (vitamin B6) 500 mg tablet 500 mg PO DAILY Vitamin Plus Low Iron 27 mg iron- 1 mg tablet 1 tab PO DAILY hydroxyzine HCl 25 mg tablet 25 mg PO TID PRN (Reason: anxiety) Qty: 90 2RF prazosin 1 mg capsule 1 mg PO QHS 30 Days Qty: 30 2RF Vraylar 1.5 mg capsule 1.5 mg PO DAILY Qty: 30 1RF fluoxetine 40 mg capsule 40 mg PO DAILY Qty: 30 2RF quetiapine 50 mg tablet 50 mg PO QHS Qty: 30 2RF epinephrine 0.3 MG syringe 0.3 mg IM DAILY PRN (Reason: Allergies) albuterol sulfate 1 INHALER inhaler 1 puff inhalation Q4H PRN PRN (Reason: Asthma) pantoprazole 40 mg tablet,delayed release (DR/EC) 40 mg PO BID fluticasone propion-salmeterol [Advair Diskus] 250-50 mcg/dose blister with device 1 inh inhalation BID Spiriva Respimat 1.25 mcg/actuation mist 2 puff inhalation DAILY ferrous sulfate 325 mg (65 mg iron) Tablet 325 mg PO BID Primary Care Provider: Evelio Hernandez Referrals: Evelio Hernandez DO [Primary Care Provider] - Disposition Disposition: Psychiatric Hospital or Unit
--- NOTE | 2022-07-20 09:05 | ED.RN ---
FAXED PATIENT'S INSURANCE CARD TO [facility] PER CRISIS REQUEST
== END 2022-07-20 11:12 ==
PROVIDERS: Emergency Provider Emergency Medicine; PCP Student in an Organized Health Care Education/Training Program; Visit Provider Emergency Medicine
DX: T43.592A Poisoning by other antipsychotics and neuroleptics, intentional self-harm, initial encounter (principal); T14.91XA Suicide attempt, initial encounter; F32.A Depression, unspecified; J45.909 Unspecified asthma, uncomplicated; Z79.899 Other long term (current) drug therapy; K21.9 Gastro-esophageal reflux disease without esophagitis; Z79.52 Long term (current) use of systemic steroids; F41.1 Generalized anxiety disorder
CPT/HCPCS: 80048; 80076; 80307; 80329; 81025; 82077; 83735; 85025; 87811; 93005; 99285; A4216; G0480

== ENCOUNTER 2022-08-01 08:00 | Outpatient (RCR) | payer MEDICAID, SELFPAY ==
--- NOTE | 2022-08-01 09:00 | BH.SGPN.GN ---
Behaviors/Verbalizations/Mental Status: []Eye contact is fair to good. Motor activity is appropriate. Appearance is casual. Speech is Appropriate. Mood is depressed. Affect is congruent. Thoughts are linear and logical. No evidence of psychosis. Reviewed daily check in sheet and pt reports chronic passive SI with vague plan to overdose; however, denies any active SI, plan, or intent as of this date. Future oriented and denies access to lethal means. Therapist contacted pt support who indicated they would be with pt this afternoon following group as well. Client Response/Progress/Benefit: []Pt first day in PHP tx. Responded well to session, attentive and willing to process with group. Pt reports feeling ?tired and disconnected? this morning which pt connected with her ongoing depression. Did well to identify current mental health wins which included challenging herself to go outside and play with her children yesterday. Additional win noted as following through with coming back to tx and reminding herself that ?things can be better?. Current stressor identified as anxiety about taking the steps to address her mental health needs and feeling exhausted just thinking about it. Benefited from supportive feedback structure of the group. Pt will continue PHP tx to maintain safety, improve self-care and mood stability, and promote healthy skill application. Narrative Note: []
--- NOTE | 2022-08-01 10:00 | BH.SGPN.GN ---
Behaviors/Verbalizations/Mental Status: []Pt alert and oriented, casually dressed and groomed. Eye contact good. Motor activity appropriate. Speech within normal limits. Affect congruent, mood euthymic. Thoughts linear, logical, no signs of hallucinations or delusions. Client Response/Progress/Benefit: []Pt was an active participant in group discussion and experiential activity. Attentive during psychoeducation on possible causes to developing and maintain unhealthy coping skills which can impact mental health. Pt participated in interactive discussion identifying common unhealthy coping skills. client noted self-sabotaging behaviors often lead to increased problems. Able to make connections between experiential activity and importance of having a solid base of internal and external coping skills. Benefited from increased awareness of internal and external coping skills and identifying unhealthy coping skills. Will continue in IOP to challenge negative perspective, increase healthy coping, and prevent decompensation.
--- NOTE | 2022-08-01 11:05 | BH.SGPN.GN ---
Behaviors/Verbalizations/Mental Status: []Pt alert and oriented, casually dressed and groomed. Eye contact good. Motor activity appropriate. Speech within normal limits. Affect congruent, mood anxious. Thoughts linear, logical, no signs of hallucinations or delusions Client Response/Progress/Benefit: []Pt responded well to session, taking notes and contributing. Group discussed the different categories of coping skills which included distraction, emotional release, grounding, self-love, and thought challenging.? Pt participated in creating a coping skills ?menu? from the five categories of coping skills. Pt's coping skill menu included: video games, being with her pets, playing piano, taking care of her basic needs, and using affirmations. Appeared to benefit from increasing repertoire of healthy coping skills. Will continue PHP tx to reduce suicidal ideations, prevent rehospitalization, and improve distress tolerance skills. Narrative Note: []
--- NOTE | 2022-08-01 13:40 | BH.COMM ---
Communication Note - Communication with Client Communication Note: Met with pt to complete initial paperwork. No changes since pre-admission screening. Completed [place] [facility] Screening with moderate-high risk. Endorses passive wishes of within the last week, with a recent hospitalization on 07/19/22-07/27/22 in which pt had attempted suicide by overdosing on Seroquel. Pt reports chronic passive SI, last occurring yesterday with vague plans of overdosing on her prescribed psychiatric medications. Pt does not have access to excess medications and reports a support person is with her at all times to ensure safety. Pt denies any current active SI, plan, or intent today. Does have a history of SI in her lifetime with 6-8 prior suicide attempts overall. Reports multiple methods including cutting her wrist and overdosing on over the counter medication. Does not have access to weapons or stockpiles of medication. Reports checking in with a support daily. Does not present as imminent danger to herself due to no active SI, plan, intent, or access to medications. Future-oriented. Reports hx of and current self-harming behaviors via cutting and burning, which last occurred during inpatient hospitalization. Therapist contacted pt support for the day who agrees to spend the afternoon/evening with the pt. Future oriented and reports her children are primary protective factors. Pt to be admitted to [facility] level of care under diagnosis of Bipolar Disorder, NOS F31.9
--- NOTE | 2022-08-01 13:41 | BH.MDN ---
Multi-Disciplinary Note - Note 60-min Individual Time Started:: 07:50 Date: 08/01/22 Purpose of session/treatment goals addressed:: Met with pt to build rapport, gather information on current sx/triggers leading to hospitalization, and to begin to work on treatment plan goals. Eye Contact:: Good Motor Activity:: Appropriate Appearance:: Neat, Casual Speech:: Appropriate Mood:: Depressed Affect:: Other - incongruent. Pt often smiling or making jokes when discussing suicide attempt and self-harming behaviors. Thoughts:: Linear, Logical, No evidence of hallucinations/delusions noted Staff Interventions:: thought challenging, motivational interviewing, rapport building, strengths perspective, treatment planning, goal setting Client Response:: Pt receptive of session and willing to arrive early to meet with therapist prior to groups for the day. Discusses some feelings of anxiety and embarrassment regarding the need to return to treatment. Appeared to benefit from discussion normalizing pt feelings and the need for additional mental health help at various times throughout life when faced with different stressors. Expressed relief upon hearing that other prior pt?s have returned to treatment in the past. Pt shared the triggers to her recent suicide attempt and psychiatric admission on 07/19/22. The primary trigger was the one year anniversary date of her daughter?s stillbirth. Pt shared that this trauma date may have impacted her more significantly as she had been working 17/hr shifts [facility] [employer], a local [employer] [facility]. Provided insight that she had been regularly exposed to young women experiencing trauma similar to that of pt?s childhood trauma. Pt noted recognizing now that she had ?pushed all of my mental health needs and emotions down to focus on theirs?. Reports she stopped engaging in self-care activities, spent limited time with her children, and had fallen behind on housework. Identified that the combination of trauma re-experiencing, a significant trauma anniversary, and lack og self-care/mental health care was likely the cause of her attempted overdose. Shared that since discharging from the hospital she has worked with her best friend and boyfriend to put several protective factors in place, such as a support with her daily to monitor until more stable, no access to anything potentially lethal, location sharing, and appointing pt?s best friend as Power of Director Strategy. She stated her goals for treatment are to get back into more consistently utilizing healthy coping skills, to increase education on trauma, and to reduce self-harm and suicidal ideation. She reports that previous coping skills she found effective as cleaning, playing piano, ensuring her basic needs (eating/sleeping/showering) are met, crafting, and spending time with supports. Wants to get back involved with these activities as well as improve her ability to identify and create healthier core beliefs. Risks/Concerns:: Denies active suicidal ideations, plan, or intent. Future-oriented. Reports ability to maintain safety and shared she will be spending the afternoon with her children and evening with her partner which are protective factors. Long-standing fleeting SI for the past 2-3 months with most recent ideation occurring yesterday, denies intent at that time. For additional risk information please see communication note for this date. Progress Toward Goals/Plan:: Limited progress noted as this was pt's first day in tx. She presents as motivated to engage in both individual and group therapy. Maintaining daily needs/responsibilities (housework, caregiving, regular sleep/diet) are currently a stressor. She has been able to begin taking small steps in these areas. Additional stressor is an upcoming trauma anniversary date. Current support is best friend, boyfriend and pt?s grandparents whom she says are overbearing but help significantly with childcare responsibilities. She is adjusting to life since quitting her job and returning from inpatient hospitalization. Able to identify healthy coping skills however struggles to utilize when overwhelmed. [place] continue in tx to prevent decompensation/prevent re-admission to psych unit, increase healthy coping, and to maintain safety. Time Stopped:: 08:50
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
--- NOTE | 2022-08-02 10:10 | BH.SGPN.GN ---
Behaviors/Verbalizations/Mental Status: []Pt alert and oriented, casually dressed and groomed. Eye contact good. Motor activity appropriate. Speech within normal limits. Affect congruent, mood dysthymic. Thoughts linear, logical, no signs of hallucinations or delusions. Client Response/Progress/Benefit: []Pt receptive to session AEB contributing to discussion, as well listening attentively to others, and taking notes. Worked with group to brainstorm the positive and negative aspects of stress on physical and mental health. Group did well to identify the benefits of stress as well as the impact of distress on performance, relationships, and mental health. Pt identified their personal top stressors as: depression/anxiety, parenting, and trying to keep up with house chores/cleaning/organizing. Pt seemed to benefit from increased awareness of current stressors and impact stress has on mental health. Recommended to continue IOP tx to increase consistent use of skills, improve emotion regulation, and prevent decompensation.
--- NOTE | 2022-08-02 10:52 | BH.MDN_ITS ---
Multi-Disciplinary Note - Note 60-min Individual Time Started:: 07:54 Date: 08/02/22 Purpose of session/treatment goals addressed:: The process current emotions ans stressors impacting mental health, as well as develop small self-care goals for the day. Eye Contact:: Good Motor Activity:: Appropriate Appearance:: Casual Speech:: Appropriate Mood:: Depressed Affect:: Congruent Thoughts:: Linear, Logical, No evidence of hallucinations/delusions noted Staff Interventions:: thought challenging, motivational interviewing, psychoeducation on: - negative core beliefs. BPD relationship cycle, strengths perspective, goal setting Client Response:: Pt engaged in session and openly processed thoughts and emotions throughout. Reported she has been trying to cut back on her daily Mountain Dew consumption as she is trying to be more conscious of ?what I put in my body?. Provided insight that caring for her physical health needs displays forethought into her future and indicates a desire to live. Pt noted overall feeling ?less like I want to ? or escape and hopeful she can achieve stability. Pt recognized that since returning home from inpatient hospitalization she has felt less numb and more aware of her other emotions, i ndicating ?I?m feeling a lot of feelings?. Described that as she was printing off photos for her daughter?s memorial she began to experience anger when seeing her soon-to-be ex- in the photos. Reports that since she is no longer in the relationship and is now in a healthier relationship, she is more easily able to identify the toxic characteristics. Shared feeling anger, sadness, and disapp ointment that she had to experience such a traumatic event without support form her partner. Able to work with therapist on processing and validating her emotional reactions. Pt expressed limited use of emotional release skills lately and feels this is beginning to impede her emotion regulation in the home. Cited feeling obligated to catch-up on all the housework before she is ?allowed? to engaged in other types of self-care. Willing to work with therapist on challenging associated distortions and pt revealed a negative core belief of ?My worth is dependent on my performance or achievements.?. Did well to recognize the impact of this on expectations for self and ability to meet these expectations. Pt shared insight that she would not expect anyone else to have to earn enjoyment. Worked with therapist to create a realistic cleaning goal for the day, as well as 2 enjoyable self-care activities to complete. Identified plans to sort through 2-3 baskets of laundry while watching a show she enjoys and then spend time either playing piano or journaling as these are activities pt finds aid in providing emotional release. Risks/Concerns:: Denies active suicidal ideations, plan, or intent. Future- oriented. Long-standing fleeting SI for the past 2-3 months with most recent ideation occurring Monday, denies intent at that time. Plans to be with supports this afternoon. Progress Toward Goals/Plan:: Some progress noted as pt reports reduced suicidal ideation and improved sense of hope. Pt has followed through with engaging with her supports and doing small tasks around the house to improve sense of comfort in her own space. Reports a desire to get back into enjoyable and emotion release aspects of self-care as well. Pt receptive of taking time to begin addressing negative core beliefs as well. Continues to report depression and low sense of worth, guilt, anxiety, and grief. Pt will continue in tx to prevent decompensation/prevent re-admission to psych unit, increase continue to healthy coping, and to maintain safety. Time Stopped:: 08:50
--- NOTE | 2022-08-02 11:10 | BH.SGPN.GN ---
Behaviors/Verbalizations/Mental Status: [] Eye contact is good. Motor activity is appropriate. Appearance is casual. Speech is Appropriate. Mood is anxious/depressed. Affect is congruent. Thoughts are linear and logical. No evidence of psychosis. Client Response/Progress/Benefit: [] Pt was an active participant in group discussions. Active and engaged during experiential activity. Attentive during psychoeducation on the 4 A's of stress management (Avoid, Alter, Adapt, Accept). Along with peers pt was able to connect the experiential activity to the group topic of stress. Identified times during the activity in which she utilized in the moment stress management skills which included; utilizing others for support/help, identifying struggles and adapting, making necessary changes when needed, the importance of patience, taking a step back, breathing, reframing thoughts, and not ruminating or letting setbacks lead to giving up. Benefited from increased education on stress management strategies and practicing in the moment stress management skills. Will continue in IOP to maintain safety, prevent decompensation/re-admission to psych unit, improve healthy coping skills, and to stabilize mood. Narrative Note: []
--- NOTE | 2022-08-03 07:44 | BH.MDN_ITS ---
Multi-Disciplinary Note - Note 60-min Individual Time Started:: 07:55 Date: 08/03/22 Purpose of session/treatment goals addressed:: The process current emotions related to a trauma anniversary date and develop small self-care goals for the day. Additionally, reviewed negative core belief homework. Eye Contact:: Good Motor Activity:: Appropriate Appearance:: Neat, Casual Speech:: Appropriate Mood:: Anxious, Depressed Affect:: Congruent Thoughts:: Linear, Logical, No evidence of hallucinations/delusions noted Staff Interventions:: thought challenging, motivational interviewing, psychoeducation on: - negative core beliefs, strengths perspective, taught coping skills - worked to challenge and replace negative core beliefs with healthier more balanced beliefs. Client Response:: Pt receptive of session and actively engaged throughout. Reported struggling with intrusive thoughts bringing back difficult emotions surrounding her daughter?s stillbirth this time last year. Pt shared being awake since 1:30am this morning due to intrusive thoughts related to this, but overall feels she is coping in healthier ways than she might have in the past. Declines any suicidal ideation or self-harm urges. Noted spending the morning engaging in self-care and shared taking time to slow down and intentionally complete her basic self-care/personal hygiene needs this morning. Expressed plans to go to the [facility] this afternoon and go go for a walk. Reports she is not concerned about walking alone, expressing that ?I don?t want to do it anymore. I want to start taking care of myself because I don?t want to risk accidentally killing myself either?. This is significant progress given pt difficulties identifying reasons to live this time last week. The remainder of session spent reviewing pt negative core beliefs assessment given for homework. Pt identified core beliefs of ?My worth is dependent on my performance or achievements.?, ?I have to be perfect? or ?It?s not okay to make mistakes.?, ?my worth and security depend on the approval of others.?. Pt processed with therapist and identified these beliefs likely stem from her parent?s expectations of her from a young age. Shared going through life with very high expectations of herself and what success looks like. Reports this has made it difficult to accept and express self-compassion for herself and where she is currently at in life. Identified that she would not expect more of anyone else in her situation but has always struggled with feeling she deserves self-care or enjoyment if she has not first earned it. Receptive of discussion challenging this belief and identifying beliefs that contradict this belief. Shared she would not want her children to adhere to the beliefs she has learned to abide by and worked to identify beliefs such as ?It?s important to be happy and healthy in life? she would want to instill in her children. Identified ways she can begin to take steps to model these new, more balanced beliefs in her own life. Risks/Concerns:: Denies active suicidal ideations, plan, or intent as of this date 08/03/22. Future-oriented. Long-standing fleeting SI. Plans to be with supports this afternoon. Denies any self-harming behaviors since hospital d/c. Progress Toward Goals/Plan:: progress noted as pt continues to report refraining from engaging in self-harming behaviors, despite several significant stressors at this time. Reports taking more time to practice self-care and self-compassion to cope with her trauma anniversary rather than engaging in maladaptive coping behaviors she would have typically done. Continues to reach out to support as well. Pt struggles with ongoing depression, difficulties managing her emotions and impulses during increased destress, as well as significant negative core beleifs impacting consistent skill application. Recommended continued IOP tx to improve mood stability, prevent decompensation, and continue to promote healthy distress tolerance. Time Stopped:: 08:50
--- NOTE | 2022-08-03 09:00 | BH.SGPN.GN ---
Behaviors/Verbalizations/Mental Status: []Pt alert and oriented, casually dressed and groomed. Eye contact fair. Motor activity appropriate. Speech within normal limits. Affect constricted, mood depressed. Thoughts linear, logical, no signs of hallucinations or delusions. Reviewed pt?s symptom tracker, no risk for suicidal ideation, plan, or intent. Client Response/Progress/Benefit: []Pt responded well to session, attentive and engaged. Patient reported mental positive as taking time to play her piano. Patient noted she only played for less than 5 minutes but able to see this as a win because she could have chose to do nothing. Patient identified additional months of positive as taking time for self-care this morning which is something she reported she struggles with. Patient reported current stressor is the 1 year anniversary of her baby stillbirth. Patient stated she worked with individual IOP therapist to develop plan that would help her through this difficult time. Pt appeared to benefit from support from peers. Pt will continue IOP tx to increase consistent utilization of healthy coping skills, decrease negative thinking, and prevent decompensation.
--- NOTE | 2022-08-03 10:00 | BH.NA ---
Physical Data - Vital Signs Pulse Rate: 62 Blood Pressure: 130/96 - Height/Weight Height: 1.63 m Weight:: 71.668 kg Weight in Pounds: 158.0 lbs Current Medication Compliance - Medication Compliance Do you take your medication as prescribed?: Yes Nutritional History - Appetite Nutritional Instructions:: If client shows signs of a swallowing problem, weight change of 10 pounds or more in the last month, or is on a diabetic diet, the physician will review and request a dietitian consult, as appropriate. All unintentional weight loss will be referred to the physician for decision on need for dietitian consult. Describe your appetite:: Fair - Client states she has a decreased appetite, but denies recent change in weight. Functional Assessment - Sleep Pattern Describe any problems with sleeping: Client states she is only sleeping about 3-4 hours per night since her hospitalization. - Activities Motor Activity:: Functional Sensory/Communication Assess - Vision Problems Do you have any vision problems?: Glasses - Communication Problems Do you have difficulty understanding what people are saying?: No Medical Problems/History - Respiratory Conditions Respiratory: Asthma - Neurological Conditions Neurological: Headaches - Genitourinary Conditions Genitourinary: Other (See comments) - history of bladder prolapse - Hematologic Conditions Hematologic: Anemia - client states she has been easily bruising since her hospitalization, states she is getting labs about her iron deficiency later this month - Gastrointestinal Conditions Gastrointestinal: Other (See comments) - GERD, IBS - Pain Assessment Do you have acute or chronic pain?: No - Family History Family History: Family History (Last Reviewed 07/04/22 @ 09:31 by Gini Fry) Brother Asthma Mother Hypertension Heart disease Father Depression Heart disease Hyperlipidemia Hypertension - Additional History Additional comments:: borderline personality disorder, bipolar Surgical History - Surgical History Have you had any surgeries? If so, list type and date:: Yes - D&C x2 Substance Abuse - Substance Abuse Please describe substance abuse in the last 30 days:: Client denies alcohol or tobacco use. Client denies substance use. Client states while briefly on Spofford after her July 2022 hospitalization, she was not drinking caffeine but states she has returned now to drinking 4-5 cans of Mountain Dew per day. Mental Status Summary - Mental Status Significant Findings/Observations on Appearance and Mood:: Client is alert and oriented x 4. Client is casually groomed. Client is cooperative with assessment. Client makes good eye contact. Client's speech has normal rate and volume. Client has appropriate affect and makes logical associations. Client has normal processing. Client denies delusions/hallucinations. Client denies suicidal ideation at this time, but admits that tomorrow is the first anniversary of her stillborn daughters and she is not sure how she will feel. Suicide Assessment - Suicidal Ideation Are you currently or have you been suicidal in the past?: No - chronic SI, denies SI at this time Suicidal Intentional Rating Scale (SIRS): Suicidal thoughts (past) Physician Notification: If Active suicidal thoughts/Will not contract for safety is checked, contact physician and document in the Physician Notification section below. Assault History/Potential Past Psychiatric History - MH Treatment Hx Past Psychiatric Medications:: Prozac, recently started on Spofford but only took for about a week, others that she does not remember Age of first mental health symptoms: Client states she was first depressed in first grade. Describe (age, circumstance, etc) any past hospitalizations: Client has had numerous hospitalizations. Client had around 36 hospitalizations as a teenager. Client had a 25 day stay at [facility] after a suicide attempt in December 2021 prior to her first time through [facility] in February. Client was just hospitalized at [facility] 07/19/22-07/27/22 after a suicide attempt from a Seroquel overdose. Client has had many other hospital stays and a few suicide attempts. Current providers for mental health treatment (counselor, psychiatrist, keycase assembler, etc.): Dr. Vargas for psychiatry Fall Risk Assessment - Age Age: Less than 60 - Mental Status Mental Status: Willing & able to ask for assistance when needed - Physical Status Physical Status: No problems - Impairments Impairments: None - Elimination Elimination: Continent AND independent - Gait or Balance Gait or Balance: Walks independently - Hx of Falls History of falls in the past 6 months: No known history - Medications/Substances Psychotropics:: Antipsychotics, Antihistamines (e.g. Benadryl) Others:: Antihypertensives Medications/substances used within the past 24 hours or ordered to administer: 3 or more of the medications/substances listed above - Total Score Total Points:: 2 RN Summary of Impressions - Impressions Recommendations: Include psychiatric and medical issues, treatment planning recommendations, and discharge planning needs. Impressions: Psychiatric Issues: 1. Borderline personality disorde. 2. Bipolar 1 disorder, most recent episode mixed, severe without psychosis (F31.63). 3. Generalized anxiety disorder. 4. PTSD - Level of Care How do the client's current symptoms and functional deficits support need for this level of care?: Client was in IOP from February 2022 until April 2022. Client has a recent hospitalization at [facility] from 07/19/22 to 07/27/22 after a suicide attempt by overdose of Seroquel. Clients main stressor is the upcoming anniversary of her daughter being born stillborn (08/04/21). Client denies SI this day so far, but states she realizes she's going to be very emotional today and tomorrow. Client does have chronic SI. Client has a history of self-harm with many scars on her left arm. Client denies self-harm since being in the hospital and her left arm has very superficial open areas that are closed and almost healed. Client reports other stressors as finances and being legally from her . IOP will promote gains and prevent further decompensation while providing social support and skills training.
--- NOTE | 2022-08-03 10:10 | BH.SGPN.GN ---
Behaviors/Verbalizations/Mental Status: []Eye contact is good. Motor activity is appropriate. Appearance is casual. Speech is Appropriate. Mood is depressed. Affect is congruent. Thoughts are linear and logical. No evidence of psychosis. Client Response/Progress/Benefit: []Pt was an active participant in group discussion and experiential activity, though remaining mostly passive throughout. Attentive during psychoeducation on resilience. Participated in interactive discussion with peers on the definition of resilience and where it comes from. Group identified that resiliency can be impacted by; past experiences, learned behaviors, and current mental health state. Group also worked together to identify the benefits of being resilient and how it is related to mental health. Pt identified resilience as a rodríguez component to effective parenting. Able to relate experiential activity of group juggle to topics of resilience. Worked well with peers in small group in which they identified factors that contribute to resilience. Benefited from increased awareness of resilience and the factors that contribute to building resilience. Will continue in IOP to prevent decompensation and further promote mood stability, as well as improve ability to manage daily living stressors and maintain safety. Narrative Note: []
[2022-08-03 10:27] VITALS: BP 130/96; PULSE 62
--- NOTE | 2022-08-03 11:10 | BH.SGPN.GN ---
Behaviors/Verbalizations/Mental Status: []Pt alert and oriented, casually dressed and groomed. Eye contact good. Motor activity appropriate. Speech within normal limits. Affect congruent, mood depressed. Thoughts linear, logical, no signs of hallucinations or delusions. Client Response/Progress/Benefit: []Pt responded well to session AEB completing the resilience worksheet provided. Pt participated in the discussion and worked cooperatively with group to identify strategies to enhance each of the components discussed. Pt reports belief they already use resilience trait of??self-awareness? as pt feels she does well with asking for help and recognizing triggers. Pt stated they would like to continue to develop resilience trait of ?avoiding seeing crises as insurmountable problems? as pt feels she ?goes to crisis? when stressed. Pt seemed to benefit from discussing strategies for improving personal resilience and identifying resilience traits pt already possesses. Will continue IOP tx to prevent rehospitalization, improve daily functioning, and increase distress tolerance skills.? ? Narrative Note: []
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
--- NOTE | 2022-08-03 12:48 | BH.DR.ITP ---
Initial Treatment Plan Patient Information Visit Information: ADMISSION DATE: EXPECTED LOS: 4-6 weeks Problems/Symptoms Problem #1:: Mood instability Symptom:: Depression, irritability, worthlessness, anhedonia, biological disruption of sleep, decreased concentration, guilt, passive thoughts of , passive suicidal ideation Problem #2:: Anxiety Symptom:: Worry, rumination, flashbacks, nightmares, avoidance
--- NOTE | 2022-08-04 07:44 | BH.MDN ---
Multi-Disciplinary Note - Note 60-min Individual Time Started:: 07:50 Date: 08/04/22 Purpose of session/treatment goals addressed:: The process current emotions and stressors impacting mental health, as well as develop small self-care goals for the day and a coping/safety plan for the weekend Eye Contact:: Good Motor Activity:: Appropriate Appearance:: Neat, Casual Speech:: Appropriate Mood:: Anxious, Depressed Affect:: Congruent Thoughts:: Linear, Logical, No evidence of hallucinations/delusions noted Staff Interventions:: thought challenging, motivational interviewing, CBT techniques, strengths perspective, goal setting, other - created weekend coping/safety plan Client Response:: Pt remained actively engaged in session and openly processed thoughts and emotions throughout. Reported doing better than she had expected today as it is the one-year anniversary of her daughter?s , who was stillborn. Shared the coping plan she created for the day which includes redoing her daughter?s memorial board, lighting her candle, and reading poetry she has written for her daughter. Discussed plans to have her older children go to her grandparent?s home so she has space to grieve. Pt discussed that she will not be alone as her boyfriend will be coming over to provide pt with support as she completes the various grief activities planned. Therapist discussed with pt the importance of taking time to engage in self-care as well which pt appeared to connect with. Worked with therapist for the remainder of session to identify self-care activities for the afternoon as well as create a safety plan for the weekend. Pt identified using opposite action and watching her favorite [place] movie, going for a walk at the [facility], restarting her accomplishment log, and spending time playing the piano. Shared she has struggled with doing things solely for her own enjoyment and believes that challenging herself to do so will improve her overall happiness and contentment in life. Identified plans to attend a barbeque with supports tomorrow and will have either her boyfriend or best friend with her throughout the day Monday and Monday. Pt receptive of therapist confirming this with her supports. Risks/Concerns:: Denies active suicidal ideations, plan, or intent as of this date 08/04/22. Future-oriented. Long-standing fleeting SI. Plans to be with supports this afternoon. Denies any self-harming behaviors since hospital d/c. Progress Toward Goals/Plan:: Progress noted as pt reports continued reduction in suicidal ideation and no self-harming behaviors. She shared increased willingness to engage in self-care and is more open to identifying and challenging negative core beliefs that have prevented application of adaptive coping in the past. Pt is consistently utilizing her supports and is more receptive of accepting help from others. Continues to report depression and low sense of worth, guilt, distorted thinking patterns, anxiety, and grief. Pt will continue in tx to prevent decompensation/prevent re-admission to psych unit, continue to promote healthy coping and distress tolerance skills, and to maintain safety. Time Stopped:: 08:45
--- NOTE | 2022-08-04 07:45 | BH.MTP ---
[facility] - Patient Information Program Physician:: Dr. Svitlana Yin Primary Therapist:: KELLY Montilla - Psychiatric Diagnoses Psychiatric Diagnoses:: 1. Borderline personality disorde. 2. Bipolar 1 disorder, most recent episode mixed, severe without psychosis (F31.63). 3. Generalized anxiety disorder. 4. PTSD Diagnosis Code(s):: F31.63 - Estimated LOS Estimated LOS (in weeks):: 6 Problem/Goal #1 - Problem/Goal #1 Stated Goal:: Pt will decrease depressive symptoms, irritability, worthlessness, negative self-talk, and suicidal ideations Description of Barriers: Pt has a significant trauma history that pt has not been able to fully process or resolve. Pt has a history of chronic SI, several prior attempts, and long-term self-harming hx, as well as recent reports of increase risky behaviors. Hx of medication non-compliance. Functional Impact: The patient is a 26-year-old but female with a history of bipolar disorder, and borderline personality disorder who previously completed the IOP program from February 2022 to April 2022. The patient was referred back to the program following psychiatric hospitalization from July 20 to July 27, 2022 for an overdose of about 25 Seroquel. Reports her mood was depressed partially because of occupational stress and associated workplace drama after patient quit her job a few July 20. Pt also states that the upcoming anniversary of the loss of her stillborn child is a stressor but was not an immediate stressor as the anniversary is August 04, 2022. Since April 2022 the patient says she did okay until her work stress became severe. The patient states also that she was noncompliant with taking her medications for a lot of days when work became difficult, and she was working nights. Going off medications in the past has triggered a manic episode according to the patient. Patient states that before being admitted on July 20 she was not getting any sleep because she was not taking her Seroquel. She was getting no sleep and she was not tired the next day. In fact she was getting a lot done and thinking fast and moving fast and people noticed she was different. Her mood remains somewhat irritable but also depressed during that time. The patient last self-harmed via cutting in the hospital but no stitches were required. She denies any self-harm urges now but she states that she was cutting herself daily for 2 weeks before going inpatient on July 20, 2022. Her mood since discharge a week ago is down and somewhat irritable. She endorses anhedonia, worthlessness, guilt, decreased sleep and concentration, passive thoughts of and passive, fleeting suicidal ideation and a plan to overdose on medication. She states that her children are protective factors. She is future oriented. She has a history of trauma and has flashbacks and nightmares from this. Current mental health sx impacting ability to work or function at baseline. - Objectives Objective #1 Stated Objective: Pt will learn and utilize 2-3 healthy coping strategies to better manage depressive symptoms and irritability, as well as reduce thoughts of as shown by a decrease of DMS-5 symptoms for depression. Interventions: Through group and individual sessions, therapist will help pt identify triggers and warning signs of depression and guilt including emotional, physical, and behavioral changes. Therapist will teach pt various coping skills to manage symptoms and give pt tangible resources to use to regulate emotions. Therapist will use cognitive restructuring techniques and help pt gain awareness of negative thoughts that reinforce guilt and depression. Therapist will provide psychoeducation on maintenance cycles and help pt learn ways to break unhealthy maintenance cycles. Therapist will help pt incorporate behavioral activation and assist pt in setting SMART goals. Discharge Criteria: Pt will have met this goal when can report learning and using at least 2 coping skills to manage depressive symptoms and reduce irritability. Additionally, pt will have met this goal when pt's DSM-5 scores for depression and irritability decrease. Target Date: 09/16/22 Review Date: 08/24/22 Objective #2 Stated Objective: Pt will reduce anhedonia and improve mood through setting and accomplishing 2-3 small self-care goals a week. Interventions: Through group and individual sessions, pt will learn how to set small SMART goals to promote mood stability. Therapist will provide education on maintenance cycles for depression and help pt learn how to break unhealthy maintenance cycles. Provide education on self-care through group and individual sessions. Aid client in completing values exploration and creating small self-care goals in line with pt values. Discharge Criteria: Pt will have accomplished this goal when can report accomplishing at least two small self-care goals a week. Target Date: 09/16/22 Review Date: 08/24/22 Problem/Goal #2 - Problem/Goal #2 Stated Goal:: Will reduce panic and anxiety through increasing emotional regulation and distress tolerance skills Description of Barriers: Pt has a significant trauma history that pt has not been able to fully process or resolve. Pt has a history of chronic SI, several prior attempts, and long-term self-harming hx, as well as recent reports of increase risky behaviors. Hx of medication non-compliance. Functional Impact: The patient is a 26-year-old but female with a history of bipolar disorder, and borderline personality disorder who previously completed the IOP program from February 2022 to April 2022. The patient was referred back to the program following psychiatric hospitalization from July 20 to July 27, 2022 for an overdose of about 25 Seroquel. Reports her mood was depressed partially because of occupational stress and associated workplace drama after patient quit her job a few July 20. Pt also states that the upcoming anniversary of the loss of her stillborn child is a stressor but was not an immediate stressor as the anniversary is August 04, 2022. Since April 2022 the patient says she did okay until her work stress became severe. The patient states also that she was noncompliant with taking her medications for a lot of days when work became difficult, and she was working nights. Going off medications in the past has triggered a manic episode according to the patient. Patient states that before being admitted on July 20 she was not getting any sleep because she was not taking her Seroquel. She was getting no sleep and she was not tired the next day. In fact she was getting a lot done and thinking fast and moving fast and people noticed she was different. Her mood remains somewhat irritable but also depressed during that time. The patient last self-harmed via cutting in the hospital but no stitches were required. She denies any self-harm urges now but she states that she was cutting herself daily for 2 weeks before going inpatient on July 20, 2022. Her mood since discharge a week ago is down and somewhat irritable. She endorses anhedonia, worthlessness, guilt, decreased sleep and concentration, passive thoughts of and passive, fleeting suicidal ideation and a plan to overdose on medication. She states that her children are protective factors. She is future oriented. She has a history of trauma and has flashbacks and nightmares from this. Current mental health sx impacting ability to work or function at baseline. - Objectives Objective #1 Stated Objective: Pt will identify 2-3 anxiety triggers and 2 coping skills to use when feeling anxious to manage anxiety as shown by reducing DSM-5 scores for anxiety Interventions: Therapist will provide education on anxiety, avoidance behaviors, and maintenance cycles. Therapist will help pt explore personal symptoms and warning signs of anxiety. Therapist will teach pt coping skills to improve emotional regulation, mindfulness, and distress tolerance to help pt cope with anxiety in the moment. Discharge Criteria: Pt will have accomplished this goal when she can identify at least 2 triggers and report using 2 coping skills to manage anxiety. Additionally, pt will have accomplished this goal AEB reduction of DSM-5 scores for anxiety. Target Date: 09/16/22 Review Date: 08/24/22 Objective #2 Stated Objective: Reduce the frequency of maladaptive behaviors, thoughts, and feelings that are often responses to trauma triggers and impede interpersonal relationship health, as well as interfere with attaining a reasonable quality of life. Interventions: Provide psychoeducation on maladaptive behaviors and their impacts on interpersonal relationships and quality of life. Therapist will use validation, dialectical strategies and cognitive-behavioral strategies to help the client identify, manage, reduce, or regulate maladaptive behaviors (e.g., angry outbursts, binge drinking, abusive relationships, high-risk sex, uncontrolled spending) thoughts and feelings. Discharge Criteria: Client will be able to identify current maladaptive behaviors and report a reduction in use of maladaptive coping and increase in application of more adaptive coping means. Target Date: 09/16/22 Review Date: 08/24/22
--- NOTE | 2022-08-04 09:10 | BH.SGPN.GN ---
Behaviors/Verbalizations/Mental Status: [] Eye contact is good. Motor activity is appropriate. Appearance is casual. Speech is Appropriate. Mood is depressed. Affect is congruent. Thoughts are linear and logical. No evidence of psychosis. Reviewed daily check in sheet and pt reports 4/10 for suicidal thoughts and 1/5 for risk which is improvement from baseline at admission. Client Response/Progress/Benefit: [] Pt participated at times during the group discussions. Attentive. Daily symptom tracker notes 5/5 for anxiety and irritability and 4/5 for depression. Mental health wins include utilizing skills which has increased patience and decreased anger. Gave examples of how this has helped with daily functioning. Increased anxiousness and sadness as today would have been her stillborn child's 1st birthday. She met with program therapist this AM to process and develop heathy coping skills and plan for this weekend. Her check-in was brief and did not appear to want to elaborate more on this very difficult topic. Group was supportive and provided encouragement which was supportive. Will continue in IOP to maintain safety, prevent decompensation/re-admission, and to increase healthy coping. Narrative Note: []
--- NOTE | 2022-08-04 10:15 | BH.SGPN.GN ---
Behaviors/Verbalizations/Mental Status: []Pt alert and oriented, neatly dressed and groomed. Eye contact good. Motor activity appropriate. Speech within normal limits. Affect congruent, mood depressed. Thoughts linear, logical, no signs of hallucinations or delusions. Client Response/Progress/Benefit: []Pt responded well to session AEB contributing to discussion, taking notes, and listening attentively to others. Group discussed the benefits of managed anger and anger as a secondary emotion. Pt shared perspective on personal benefits of anger as motivated for change and boundaries. Pt completed worksheet on anger triggers and personal warning signs of anger. Pt identified their biggest triggers as grief, anxiety, and feeling overwhelmed. Appeared to benefit from increased knowledge of the anger cycle as well as personal triggers. Will continue IOP tx to prevent decompensation, increase distress tolerance skills, and improve self-compassion. Narrative Note: []
--- NOTE | 2022-08-04 11:10 | BH.SGPN.GN ---
Behaviors/Verbalizations/Mental Status: []Client alert and oriented, casually dressed and groomed. Eye contact good. Motor activity appropriate. Speech within normal limits. Affect congruent, mood euthymic. Thoughts linear, logical, no signs of hallucinations or delusions. Client Response/Progress/Benefit: []Pt was engaged throughout AEB contributing to group discussion and self-reflection. Group finished processing cues to anger worksheet. Pt contributed as group brainstormed healthy coping skills for better managing anger which included: music, walking/exercise, taking a break, grounding tools, reflection, and journaling. Pt reported she would like to work on skills of taking a break and journaling/reflection to help manage anger responses. Pt appeared to benefit from identifying different techniques to manage anger as well as gaining awareness of potential consequences of unmanaged anger. Will continue IOP tx to increase consistent use of healthy coping skills, challenge negative thoughts, and prevent decompensation.
--- NOTE | 2022-08-08 10:15 | BH.SGPN.GN ---
Behaviors/Verbalizations/Mental Status: []Pt alert and oriented, neatly dressed and groomed. Eye contact good. Motor activity appropriate. Speech within normal limits. Affect congruent, mood calm. Thoughts linear, logical, no signs of hallucinations or delusions. Client Response/Progress/Benefit: []Pt was an active participant in group discussions. Attentive during psychoeducation. Contributed during interactive discussions in which peers attempted to define crisis. Pt identified several examples of potential crisis. Group also worked together to identify unhealthy responses to crisis which included; isolation, self-harm, overuse of distraction, avoidance, and lashing out. Pt identified personal warning signs as lack of self-care, stocking up on medications, and feeling disconnected from supports. Benefited from increased understanding of crisis and awareness of personal responses to crisis. Pt will continue IOP tx to reduce depressive symptoms, improve self-compassion, and replace maladaptive coping mechanisms. Narrative Note: []
--- NOTE | 2022-08-08 15:23 | BH.MDN_ITS ---
Multi-Disciplinary Note - Note 30-min Individual Time Started:: 09:02 Date: 08/08/22 Purpose of session/treatment goals addressed:: The process tx goal progress, current stressors impacting mental health and interpersonal relationships, as well as develop small self-care goals for the day. Eye Contact:: Good Motor Activity:: Appropriate Appearance:: Neat, Casual Speech:: Appropriate Mood:: Euthymic, Anxious Affect:: Congruent Thoughts:: Linear, Logical, No evidence of hallucinations/delusions noted Staff Interventions:: thought challenging, motivational interviewing, CBT techniques, strengths perspective, taught coping skills - healthy boundary s etting Client Response:: Pt requested to meet with therapist this morning to discuss a current stressor. Pt shared that she had coped well with her daughter?s anniversary , noting use of several healthy skills, self-care practices, and reaching out to her boyfriend for support. Went on to share that her current stressor occurred on Monday when pt made plans to spend time with supports celebrating her daughter?s life. Expressed that she and her supports had planned a small barbeque and the throughout the event pt?s best friend and primary support was drinking alcohol to the point of excess. Pt shared that has noticed several concerning changes in her friend?s behaviors over the past 2 weeks, including increased drinking, ignoring pt calls and texts, isolation, and increased marital stress. Pt reports wanting to support her friend; however, every time she has tried to reach out she has ignored it or changed the subject. Pt provided insight that she cannot make her friend get help or open up if she does not want to. Expressed feelings of guilt as pt also recognizes that being around her friend when she is intoxicated is a trauma trigger. Shared feeling some sense of obligation to be there for her friend as she has been such a strong support for her throughout pt?s own mental health struggles. Upon further discussion, pt reflected that healthy friendships are not conditional and that she would not want her friend to put herself in a potentially traumatizing situation if the roles were reversed. Able to identify that she can still be supportive of her friend?s mental health and establish a boundary of not being around her while she?s drinking. Pt expressed wanting to think over what she would like her specific boundaries to look like prior to having the conversation and reports plans to journal about it this evening. Additionally, identified self-care goals for the afternoon as playing a game on her [employer] switch as well as completing her daily accomplishment journal entry. Risks/Concerns:: Denies active suicidal ideations, plan, or intent as of this date 08/08/22. Future-oriented. Denies any self-harming behaviors or urges since hospital d/c. Progress Toward Goals/Plan:: Progress noted as pt reports continued reduction in suicidal ideation and no self-harming behaviors or urges to do so. She shared doing well to engage in healthy coping skills throughout the weekend which helped her to cope with her grief surrounding her daughter?s trauma anniversary date. Pt reports more active engagement in small daily self-care goals, doing things she enjoys, and challenging negative core beliefs. Continues to struggle with thoughts of worthlessness but is actively taking steps to create more balanced beliefs. Pt reports ongoing anxiety surrounding her ability to manage mental health stressors as well as several medication side effects. Pt will follow-up with psychiatry to discuss medication concerns and will continue in tx to prevent decompensation, continue to promote healthy coping and distress tolerance skills, and further improve engagement in healthy relationships. Time Stopped:: 09:33
--- NOTE | 2022-08-10 09:00 | BH.SGPN.GN ---
Behaviors/Verbalizations/Mental Status: []Pt alert and oriented, neatly dressed and groomed. Eye contact good. Motor activity restless. Speech within normal limits. Affect congruent, mood anxious. Thoughts linear, logical, no signs of hallucinations or delusions. Reviewed pt?s symptom tracker, no risk for suicidal ideation, plan, or intent as of 08/10/22 Client Response/Progress/Benefit: []Pt responded well to session, attentive and engaged. Pt reports feeling anxious this morning. Pt shared she has been having a hard time sitting still and pt was very restless throughout session. Pt encouraged to use fidgets or take breaks when needed. Pt had several mental health wins today including getting outside with her kids, doing art with her kids, and getting some housework done. Pt reports she struggles to give herself credit for these things though. Pt appeared to benefit from group feedback and support. Pt will continue IOP tx to promote mood stability, reduce negative self-talk, and increase distress tolerance skills. Narrative Note: []
--- NOTE | 2022-08-10 10:10 | BH.SGPN.GN ---
Behaviors/Verbalizations/Mental Status: [] Eye contact is good. Motor activity is appropriate. Appearance is casual. Speech is Appropriate. Mood is depressed. Affect is congruent. Thoughts are linear and logical. No evidence of psychosis. Client Response/Progress/Benefit: [] Pt was an active participant in group discussions. Attentive during psychoeducation on the 4 communication styles (Passive, Passive-Aggressive, Aggressive, and Assertive) and the obstacles to effective communication. Contributed during interactive discussion on the benefits of communicating effectively which included; having one's needs met, helping others get their needs met, building connection with others, decreases stress and uncertainty, improved relationships, increased trust, and increased understanding of others. Worked well in small group in which pt and peers identified the benefits and disadvantages to the different communication styles. Benefited from increased understanding of communication styles and how these can impact effective communication. Will continue in IOP to prevent decompensation/re-admission to psych unit, maintain safety, and improve functioning. Narrative Note: []
--- NOTE | 2022-08-10 11:10 | BH.SGPN.GN ---
Behaviors/Verbalizations/Mental Status: [] Client alert and oriented, casually dressed and groomed. Eye contact good. Motor activity appropriate. Speech within normal limits. Affect congruent, mood euthymic. Thoughts linear, logical, no signs of hallucinations or delusions Client Response/Progress/Benefit: [] Client responded well to session AEB client listening attentively to others and providing input during group discussion. Client did well in the activity to be assertive and ask for feedback. Recognizes if group wasn't assertive in activity, they wouldn't have been successful. Discussed with group communication strategies used to make activity successful. Attentive during psychoeducation on interpersonal DBT skill TONA. Client seemed to benefit from increasing awareness of healthy strategies to improve communication. Will continue IOP tx to increase consistent use of healthy coping skills, improve emotion regulation, and prevent decompensation.
--- NOTE | 2022-08-12 09:00 | BH.SGPN.GN ---
Behaviors/Verbalizations/Mental Status: []Pt alert and oriented, casually dressed and groomed. Eye contact poor. Motor activity appropriate. Speech within normal limits. Affect congruent, mood euthymic and anxious. Thoughts linear, logical, no signs of hallucinations or delusions. Reviewed pt?s symptom tracker, risk for suicidal ideation below usual baseline, denies plan, or intent. Client Response/Progress/Benefit: []Pt responded well to session, attentive and receptive to feedback. Pt shared mental positive as taking time to practice self-care and reports signing up of a 5k walk this summer in honor of her daughter. Reported additional mental positive as using opposite action to help her son with a science experiment and reports having a better time than she had expected. Current stressor noted as continuing to struggle with basic self-care needs, such as consistently eating. Seemed to benefit from support from peers and identifying areas pt deserves credit. Pt will continue IOP tx to continue to promote use of healthy coping skills, challenge negative and anxious thinking, and prevent decompensation. Narrative Note: []
--- NOTE | 2022-08-12 11:15 | BH.SGPN.GN ---
Behaviors/Verbalizations/Mental Status: []Pt alert and oriented, neatly dressed and groomed. Eye contact good. Motor activity appropriate. Speech within normal limits. Affect congruent, mood calm. Thoughts linear, logical, no signs of hallucinations or delusions. Client Response/Progress/Benefit: []Pt an active participant, encouraging peers and contributed as group brainstormed ideas on how to cope with internal barriers that keep Pts stuck from moving towards goals. Able to identify barriers to desired reality. Worked with group to identify strategies to help overcome barriers. Identified personal barriers to desired reality. Pt wants to work on overcoming the barrier of lack of boundaries by self-reflecting and identifying her values and asking herself ?what does saying yes mean saying no to?? Benefited from group by identifying obstacles and solutions to desired reality.? Pt to continue IOP to prevent rehospitalization, reduce the use of unhealthy coping skills, and improve self-compassion. Narrative Note: []
--- NOTE | 2022-08-12 11:42 | BH.MDN_ITS ---
Multi-Disciplinary Note - Note 45-min Individual Time Started:: 10:25 Date: 08/12/22 Purpose of session/treatment goals addressed:: The purpose of session is to review pt homework and process tx current stressors impacting mental health tx and interpersonal relationships, as well as discuss boundary setting goals. Eye Contact:: Good Motor Activity:: Appropriate Appearance:: Casual Speech:: Appropriate Mood:: Euthymic, Anxious Affect:: Congruent Thoughts:: Linear, Logical, No evidence of hallucinations/delusions noted Staff Interventions:: thought challenging, motivational interviewing, CBT techniques, strengths perspective, goal setting Client Response:: Pt receptive of session, actively engaged throughout. Reports struggling to identify her boundary needs/expectations with her best friend, identifying fear of rejection or upsetting her friend as a major barrier. Shared ?what if I say I can?t hangout when she?s drinking, and she gets mad or stops talking to me?? Shared trying to ease into the topic with her; however, this friend continues to ignore or minimize pt?s concerns. Therapist aided pt in challenging use of distortions and discussed times when pt?s friend had to establish a boundary with pt for her own safety. Pt made the connection between her use of cutting as an unhealthy coping mechanism and pt?s friend utilizing alcohol in a similar manner. Pt reflected that she does not want to condone her friend?s behavior but is struggling with feeling like an unsupportive friend if she sets up a boundary related to her drinking. Worked with therapist to review pros/cons of establishing a boundary to not spend time with this friend while she is drinking. Identified continuing to expose herself to the situation would potentially be traumatizing to pt and impact her ability to manage her own mental health symptoms. Discussed plans to speak more with her friend about her concerns this Monday and noted it would be best to do so at her house to avoid this friend drinking prior to the conversation. Additionally, reviewed pt self- care plan for the weekend. Pt identified plans to spend time outdoors with her children, play the piano, and make a conscious effort to ensure she is eating 3 meals a day. Risks/Concerns:: Denies active suicidal ideations, plan, or intent as of this date 08/12/22. Future-oriented. Denies any self-harming behaviors or urges since hospital d/c. Progress Toward Goals/Plan:: Progress noted as pt reports continued reduction in suicidal ideation and no self-harming behaviors or urges to do so. She shared doing well to remain consistent with engaging in healthy coping skills and making time for self-care. Pt shared feeling more motivated to interact with her children rather than observe them playing. Pt discussed changes in her medications following her outpatient psychiatry appointment and indicated feeling positive about no longer being on the lithium. Pt is now taking Lamictal 25mg and has reduced her vraylar dosage by 3 mg. Pt continues to report stress related to her best friend?s alcohol consumption. Reports desire to establish a boundary with her, however is struggling with fear of conflict. Willing to es tablish small boundary setting goals. Pt will continue in tx to prevent decompensation, continue to promote healthy coping, and further improve healthy boundary setting. Time Stopped:: 11:05
--- NOTE | 2022-08-15 09:05 | BH.SGPN.GN ---
Behaviors/Verbalizations/Mental Status: []Pt alert and oriented, neatly dressed and groomed. Eye contact good. Motor activity appropriate. Speech within normal limits. Affect congruent, mood euthymic. Thoughts linear, logical, no signs of hallucinations or delusions. Reviewed pt?s symptom tracker, no risk for suicidal ideation, plan, or intent as of 08/15/22 Client Response/Progress/Benefit: []Pt responded well to session, receptive to support. Pt reports feeling content this morning as pt felt she had a good weekend with her children. Pt shared her two wins today include take her children to [facility] by herself and cleaning her house. Pt admits she struggles with giving herself credit for cleaning because it wasn't as good as I wanted but pt is working on combating all or nothing thinking. Pt's stressor today is that she recognizes that she can improve with taking care of her physical self-care. Pt appeared to benefit from group support and feedback. Pt will continue IOP tx to promote mood stability, further reduce self-harm, and improve self-compassion. Narrative Note: []
--- NOTE | 2022-08-15 10:56 | BH.MDN_ITS ---
Multi-Disciplinary Note - Note 30-min Individual Time Started:: 10:27 Date: 08/15/22 Purpose of session/treatment goals addressed:: The purpose of session was to process an unexpercted trigger resulting in pt leaving group and reporting self- harm urges. Assessed for risk and worked with pt to complete a healthy coping plan including alternatives to self-harm. Eye Contact:: Good Motor Activity:: Appropriate Appearance:: Casual Speech:: Appropriate Mood:: Anxious, Depressed Affect:: Congruent Thoughts:: Linear, Logical, No evidence of hallucinations/delusions noted Staff Interventions:: motivational interviewing, CBT techniques, mindfulness skills, strengths perspective, completed risk assessment / safety planning, other - created healthy coping plan for managing grief and preventing engagement in self-harming behaviors Client Response:: Therapist met with pt as pt left at the beginning of group and did not return. Pt was in the bathroom and reported struggling to be in the group setting as the PRN therapist running groups for the day is . Pt reports her emotional response had been unexpected as she has been around other women since the loss of her daughter. Pt able to identify this occurring a day after Mother?s Day and close to her daughter?s birthday may have contributed to triggering pt. Shared her initial impulse was to engage in self- harm but recognizes that would only serve as temporary relief and likely result in guilt and negative self-talk afterwards. Expressed feeling she ?should? be able to cope with being around women and not feel triggered, noting beliefs that her grief ?should? be less intense by now. Able to identify use of distortions and recognized that grieving is a unique and unpredictable process. Able to practice using self-compassionate approaches to acknowledge and address her grief. Pt reports she does not actually plan to act on initial impulses to self-harm and is not experiencing suicidal ideation currently. Worked with therapist to identify healthier alternatives to self-harming and self-care coping plan for the remainder of the day. Reports plans to go for a walk, color and listen to music outside while her children play, as well as take a long bath and watch a lighthearted tv show to wind down this afternoon. Pt reports feeling calmer now and found being able to acknowledge and process her emotions out loud helps to provide validation and a sense of emotion release. Reports feeling able to return to group and shared skills she can use to manage her emotions if feeling triggered again in the group setting. Risks/Concerns:: Reported increased urges to self-harm; however, denies active plan or intent. Denies access to self-harming materials. Reports willingness to utilize healthier alternative. Denies any suicidal ideation, plan, or intent as of this date 08/15/22. Future oriented and willing to safety plan for the afternoon. Progress Toward Goals/Plan:: Some progress noted. Pt left group due to feeling triggered and experiencing increased urges to self-harm. Pt however did not engage in self-harming behaviors and instead was receptive of meeting with therapist to process her emotions and create a healthy coping plan. Pt has been able to refrain from self-harming since prior to tx admission and is continuing to make improvements in willingness to reach out for help and implement healthy distress tolerance skills. Pt recommended to remain in IOP tx to prevent decompensation, continue to improve use of distress tolerance skills and promote mood stability. Time Stopped:: 10:58
--- NOTE | 2022-08-16 10:47 | BH.MDN_ITS ---
Multi-Disciplinary Note - Note 30-min Individual Time Started:: 07:53 Date: 08/16/22 Purpose of session/treatment goals addressed:: The purpose of session was to process pt use of healthy coping skills previous night, as well as discuss an upcoming potential trigger. Eye Contact:: Good Motor Activity:: Appropriate Appearance:: Casual Speech:: Appropriate Mood:: Euthymic, Anxious Affect:: Congruent Thoughts:: Linear, Logical, No evidence of hallucinations/delusions noted Staff Interventions:: thought challenging, motivational interviewing, psychoeducation on: - healthy boundary setting, CBT techniques, strengths perspective Client Response:: Therapist met with pt prior to group sessions for the day as pt requested to take the day for self-care. Reports doing well to manage her emotions following being triggered in group the previous date. Identified spending time watching a movie with her son and sitting outside, which pt expressed feeling a sense of accomplishment for practicing healthy emotion regulation rather than giving into recent self-harming urges. Shared struggling to go for walks as consistently as she?d like as pt has recently had increased fatigue and heart rate since beginning her new medications. Plans to walk next door following session to follow-up with outpatient psychiatry, Dr. Vargas, regarding these concerns. Therapist discussed pt recently disclosing to program psychiatrist her intentions to begin trying to conceive with her new boyfriend of one month. Discussed potential concerns for pt?s mental health given the newness of the relationship, pt recent suicide attempt, and daughter?s stillbirth one year ago. Pt receptive of discussion and able to see potential risks to maintaining mental health stability; however, continues to report feeling ready to explore expanding her family as she believes she is ?in a healthy relationship and healthier mental health state?. Reviewed potential benefits of allowing herself to have a few months of consistent stability before moving forward with these plans. Pt went on to discuss an upcoming potential stressor, noting that her mother reached out to spend time with pt and her children. Pt has been estranged from her mother for the past year and noted mixed feelings about revisiting a potential relationship. Identified a strong desire to have her mother in her life and involved with her children but is reluctant given their hx. Worked with therapist to identify potential boundaries she can establish and means of slowly reintroducing the relationship to ensure her mental health stability and comfort in doing so. Shared being open o her mother spending time with pt and the kids at pt?s grandparents as they live behind pt, therefore allowing her to step away or leave the environment is feeling overwhelmed at any time. Plans to continue to work on identifying her boundaries and expectations for reintroducing her mother into her life prior to making plans to do so. Will continue to review in next session. Risks/Concerns:: Reported increased urges to self-harm yesterday; however, denies active plan or intent. Denies engaging in self-harm and reports no longer experiencing any self-harming urges at this time. Denies access to self-harming materials. Denies any suicidal ideation, plan, or intent as of this date 08/16/22. Future oriented and willing to safety plan for the day. Progress Toward Goals/Plan:: Progress noted. Pt reports managing her self- harming urges and grief in healthy ways throughout the remainder of the day following group. Pt spent time relaxing with her children instead. Reports continuing to do well to engage in consistent self-care in some areas but has recently been struggling with consistent basic need-based self-care. Reports needing groceries, however, identified plans to use opposite action to order some for delivery this afternoon. Continues to struggle with setting healthy boundaries with her supports and has insight that this may be related to negative core beliefs as well as limited concrete healthy relationships in her life. Ongoing anxiety, difficulties with in the moment distress tolerance, and struggling to identify her self-worth. Reports desire to continue to work on addressing these areas. Pt recommended to remain in IOP tx to prevent decompensation, continue to improve use of distress tolerance skills and promote mood stability. Time Stopped:: 08:26
--- NOTE | 2022-08-18 09:01 | BH.SGPN.GN ---
Behaviors/Verbalizations/Mental Status: []Pt alert and oriented, casually dressed and groomed. Eye contact good. Motor activity appropriate. Speech within normal limits. Affect congruent, mood anxious. Thoughts linear, logical, no signs of hallucinations or delusions. Reviewed pt?s symptom tracker, indicates suicidal thoughts but reports ability to manage thoughts and maintain safety. Pt has chronic suicidal ideation. Client Response/Progress/Benefit: []Pt responded well to session, attentive and receptive to feedback. Client reported mental positive as celebrating her son's birthday yesterday by spending time with him and doing activities that he enjoys. Client noted additional months of positive as being able to manage her emotions so she does not lose it on her kids. Client stated her kids have been sick and more agitated but she has been taking moments to step away so she can feel more calm to deal with their behavior. Client recognizes by taking time for herself it is helping the family be calmer. Client noted current stressor as struggling with not giving too much to her new boyfriend. Receptive to feedback from group. Recognizes if she does not take care of herself she will repeat the pattern of her last relationship. Seemed to benefit from support from peers. Pt will continue IOP tx to increase utilization of healthy coping skills, challenge distorted thoughts, and prevent decompensation.
--- NOTE | 2022-08-18 10:10 | BH.SGPN.GN ---
Behaviors/Verbalizations/Mental Status: []Pt alert and oriented, casually dressed and groomed. Eye contact good. Motor activity appropriate. Speech within normal limits. Affect congruent, mood anxious and euthymic. Thoughts linear, logical, no signs of hallucinations or delusions. Client Response/Progress/Benefit: []Pt responded well to session, attentive during psychoeducation on SMART goals (Specific, Measurable, Achievable, Realistic, and Time-bound) and engaged in group experiential activity. Participated in an interactive discussion with peers in which they worked together to define what a goal is and the benefits of having goals. Group identified benefits as; reduces anxiety, improves motivation, improves relationships, and personal growth. Participated in interactive discussion in which group identified barriers to setting goals and following through with goals. Personal barriers included negative self-talk, unrealistic expectations, all or nothing thinking. Benefited from increased awareness of benefits and strategies for goal-setting. Will continue in IOP to improve mood stability, continue to promote healthy distress tolerance skills, self-care, and improve daily functioning. Narrative Note: []
--- NOTE | 2022-08-18 11:15 | BH.SGPN.GN ---
Behaviors/Verbalizations/Mental Status: []Client alert and oriented, casually dressed, appropriately groomed. Eye contact good. Motor activity appropriate. Speech within normal limits. Affect congruent, mood euthymic and anxious. Thoughts linear, logical, no signs of hallucinations or delusions. Client Response/Progress/Benefit: []Client was engaged during discussion and willing to complete the worksheet challenging them to develop a personal SMART goal. Client chose the goal of scheduling two medical appointments in the next week. Client stated this will benefit them by decreasing avoidance and allowing for her basic needs to be met. Client identified barriers which included lack of motivation and fear of being judged. Identified several strategies for addressing barriers, such as using opposite action and reminding herself it?s their job to be non-judgmental and helpful. Client willing to begin working on this goal. Benefited from group by developing a short-term SMART goal related to mental health. Will continue IOP tx to increase healthy coping, improve daily functioning, and prevent decompensation. Narrative Note: []
--- NOTE | 2022-08-22 09:00 | BH.SGPN.GN ---
Behaviors/Verbalizations/Mental Status: []Pt alert and oriented, casually dressed and groomed. Eye contact good. Motor activity appropriate. Speech within normal limits. Affect congruent, mood euthymic. Thoughts linear, logical, no signs of hallucinations or delusions. Reviewed pt?s symptom tracker, indicates passive thoughts of , denies active thoughts or intention. Hx of chronic suicidal thoughts. Client Response/Progress/Benefit: []Pt responded well to session, attentive and receptive to feedback. Client reported mental positive as getting her tattoo on Monday and remembrance of her daughter. Client stated she is really happy she got the tattoo and is extremely pleased with how it turned out. Client noted additional mental positive as facing her anxiety by going into the tattoo shop on her own because her friend was running late. Client stated this causes significant anxiety for her but did it and made it through. Client noted current stressor as meeting with her new finish filer today and feeling overwhelmed because she made a list over the weekend of things she is neglected and avoided and finds it anxiety provoking. However did not note that this stressor can be managed by meeting with the finish filer who can help her organize what needs to be done. Seemed to benefit from support from peers. Pt will continue IOP tx to
--- NOTE | 2022-08-22 10:10 | BH.SGPN.GN ---
Behaviors/Verbalizations/Mental Status: []Pt alert and oriented, casually dressed and groomed. Eye contact good. Motor activity appropriate. Speech within normal limits. Affect congruent, mood anxious and euthymic. Thoughts linear, logical, no signs of hallucinations or delusions. Client Response/Progress/Benefit: []Pt was an active participant in group discussion and activity. Attentive during psychoeducation. Along with peers, pt was able to identify barriers to taking action. Identified several symptoms and stressors that she feels are holding her back from progress such as negative self-talk, fear of doing the wrong thing, self-sabotage, and difficulties setting healthy boundaries. Stated these things have kept pt from making healthy changes, having energy to engage in self-care, and reinforced self-sabotage. Pt shared that she wants to begin addressing the impact not setting healthy boundaries has had on her ability to take action. Benefited from increased self-awareness of obstacles. Will continue IOP tx to improve mood management, promote consistent skill application, and further reduce negative thinking. Narrative Note: []
--- NOTE | 2022-08-22 11:05 | BH.SGPN.GN ---
Behaviors/Verbalizations/Mental Status: []Pt alert and oriented, neatly dressed and groomed. Eye contact good. Motor activity appropriate. Speech within normal limits. Affect congruent, mood euthymic. Thoughts linear, logical, no signs of hallucinations or delusions. Client Response/Progress/Benefit: []Pt responded well to session, taking notes and participating in worksheet discussion. Pt connected with the zones of action/change and that making sustainable change comes from stepping out of one?s comfort zone into the learning zone. Pt set a goal to gain control over her lack of boundaries. Pt reported plans to challenge herself to make a list of boundaries she currently has and identifying which ones she wants to set. Pt identified using supports and skills like setting a timer for self-reflection, journaling, and talking to her therapist to help with this goal. Appeared to benefit from identifying a small goal to benefit mental health. Will continue IOP tx to prevent decompensation, reduce the use of unhealthy coping skills, and improve distress tolerance. Narrative Note: []
--- NOTE | 2022-08-23 09:05 | BH.SGPN.GN ---
Behaviors/Verbalizations/Mental Status: [] Eye contact is good. Motor activity is appropriate. Appearance is casual. Speech is Appropriate. Mood is euthymic. Affect is full. Thoughts are linear and logical. No evidence of psychosis. Reviewed daily check in sheet and pt denies any suicidal ideations Client Response/Progress/Benefit: [] Pt was an active participant in group discussions. Attentive. Emotion for today is ?worried?. Daily symptom tracker notes 3/5 for anxiety/irritability and 2/5 for depression. Mental health wins include self-care. Pt shared that she played to [employer] yesterday to help her with stress and negative thoughts. She also completed her goal to write in her accomplishment journal. Shared with the group then mental health benefits of journaling. Reports anxious thoughts and ruminations regarding stressors in relationships with her friend. She understands that she needs to set up boundaries however this has been difficult. Group provided support, encouragement, and feedback which was helpful. Will continue in IOP to maintain safety, prevent decompensation/re-admission, and to stabilize mood. Narrative Note: []
--- NOTE | 2022-08-23 10:20 | BH.SGPN.GN ---
Behaviors/Verbalizations/Mental Status: []Pt alert and oriented, casually dressed and groomed. Eye contact good. Motor activity appropriate. Speech tangential. Affect congruent, mood euthymic Thoughts linear, logical, no signs of hallucinations or delusions. Client Response/Progress/Benefit: []Pt active participant in group discussions. Active participant in experiential activity. Attentive during psychoeducation. Attentive as peers shared types of social supports and pt identified own as herself, therapy, walking, her pets, J[employer], her psychiatrist, friends, and her grandparents. Attentive as group identified mental health benefits of social support. Contributed as peers worked together to identify obstacles to utilizing support. Pt identified personal barriers as using passive aggressive communication, fear of rejection, lack of time availability. Benefited from increased awareness of mental health benefits of social support and obstacles that prevent one from utilizing support. Will continue IOP tx to promote mood stability, increase distress tolerance skills, and improve daily functioning. ? Narrative Note: []
--- NOTE | 2022-08-23 11:20 | BH.SGPN.GN ---
Behaviors/Verbalizations/Mental Status: []Client alert and oriented, casually dressed and groomed. Eye contact good. Motor activity appropriate. Speech within normal limits. Affect congruent, mood euthymic and anxious. Thoughts linear, logical, no signs of hallucinations or delusions. Client Response/Progress/Benefit: [] Client was an active participant throughout AEB contributing to small group discussion, participating in the activity, and taking notes. Client provided input during discussion on the types of support our supports can provide. Able to identify the types of supports provided by current support system and barriers that get in the way of using those supports. Client reported gaining awareness that they could benefit from more social supports. Shared this will help to provide her with a greater sense of belonging and acceptance. Client identified steps to achieve this researching yoga classes in her area, calling for more information, and attending one class. Client seemed to benefit from identifying the types of support and areas client could benefit from improving. Recommended to continue IOP tx to increase healthy coping, challenge and replace negative core beliefs, and improve overall functioning. Narrative Note: []
--- NOTE | 2022-08-24 15:06 | BH.TPR ---
Treatment Plan Review Date of Admission:: 08/01/22 Date of Treatment Plan Review:: 08/24/22 Admitting Diagnoses:: 1. Borderline personality disorder. 2. Bipolar 1 disorder, most recent episode mixed, severe without psychosis (F31.63). 3. Generalized anxiety disorder. 4. PTSD Current Diagnoses:: 1. Borderline personality disorde. 2. Bipolar 1 disorder, most recent episode mixed, severe without psychosis (F31.63). 3. Generalized anxiety disorder. 4. PTSD Patient's Response to Treatment:: Attends treatment consistently. She is engaged in treatment and reports completing all homework outside of group. Pt actively engages in group discussion and provides supportive feedback to fellow participants. Pt reports some progress since entering [facility], specifically in willingness to have an open mindset and challenge her perspective. She has been able to more easily utilize healthy means of coping and ask for help when needing support rather than self-harming or turning to other maladaptive coping methods as pt has in the past. Status of Current Problems and Symptoms: Pt completed DSM outcome measurement which showed an overall 24% symptom reduction. Domain for depression reduced by 14%, and thoughts of hurting herself have reduced by 50%. Anxiety reduction of 22% and OCD domain reduced by 50%. However irritability domain has remained the same. Reports improved ability to identify and begin working towards setting healthy boundaries. She would like to continue to improve this. Reports decreased crying spells and improved sense of confidence, hopefulness, and desire to engage in activities she has previously enjoyed since beginning the [facility] tx program. Pt does report difficulties with feeling responsible for caring for others and taking on other?s problems at the detriment of her own mental health, as well as significant negative core beliefs. This may be a reason for limited progress noted on outcomes measurement. Problem #1 Problem Name:: Mood instability, depression, irritability Status of Goals:: Objective 1 & 2- In progress with ongoing work encouraged. Pt?s DSM-5 scores for depression decreased by 14% since admission. Pt reports finding the group setting and connecting with others more to be helpful, however continues to struggle with consistent self-care and applying self-compassionate statements which may be preventing additional progress. She is able to identify several distorted thought patterns and negative core beliefs but has difficulties with in the moment ability to challenge and replace these due to the ingrained nature of these beliefs. Pt does report reduced crying spells, denies any self-harming since prior to admission, and continues to deny any active suicidal ideations. Reports vague fleeting ideation is easier to manage and has reduce in overall frequency and intensity. Pt has recently been setting consistent, healthy boundaries with her supports and has been continuing to take on other?s problems which may also be contributing to ongoing depression and irritability sx. Team Recommendations:: Treatment tx encourages pt to continue working on this tx goal as pt has made progress, but can continue to improve self-compassion, self-care, and challenge distortions. Pt is also indicating a desire to begin working on improving her boundaries with supports and making more social connections. Problem #2 Problem Name:: Anxiety Status of Goals:: Objective 1- not complete. Pt is actively working on identifying and learning healthier means of coping with her trauma responses and overall anxiety. Pt can identify several potential triggers with assistance, though continues to struggle with in the moment recognition. Pt has learned coping skills to manage her anxiety and has seen a 22% reduction in sx as a result. Objective 2- in progress. Pt has been working on identifying healthy means of managing her anxiety and trauma triggers rather than engaging in maladaptive coping via self-harm or high risk sexual behaviors. Pt reports she has been in a consistent stable relationship with no additional partners or urges to engage in impulsive sexual behaviors for several weeks now. Additionally, pt denies any self-harming behaviors since prior to admission. Team Recommendations:: Treatment tx encourages pt to continue working on this treatment goal to further reduce avoidance, increase self-confidence and mastery, and gain healthy and more adaptive trauma coping mechanisms.
--- NOTE | 2022-08-26 09:00 | BH.SGPN.GN ---
Behaviors/Verbalizations/Mental Status: [] Eye contact is good. Motor activity is appropriate. Appearance is disheveled. Speech is Appropriate. Mood is euthymic. Affect is full. Thoughts are linear and logical. No evidence of psychosis. Reviewed daily check in sheet and no reports of suicidal ideations or intent. Client Response/Progress/Benefit: [] Pt was an active participant. Attentive. Emotion for today is excited. Daily symptom tracker notes 3/5 for anxiety and irritability and 2/5 for depression. Mental health wins include maintain her self-care which includes making appts with health child caregiver (buffing line set up worker, dentist) that she has been neglecting for years. She shared her self-care routine and her use of assertive communication. Benefited from group support, encouragement, and feedback. Will continue in IOP to maintain safety, prevent decompensation/re-admission, and to stabilize mood. Narrative Note: []
--- NOTE | 2022-08-26 10:06 | BH.SGPN.GN ---
Behaviors/Verbalizations/Mental Status: []Client alert and oriented, casually dressed and groomed. Eye contact good. Motor activity appropriate. Speech within normal limits. Affect congruent, mood anxious, euthymic. Thoughts linear, logical, no signs of hallucinations or delusions. Client Response/Progress/Benefit: []Client receptive to session AEB providing input throughout, listening attentively to others, and taking notes. Attentive throughout psychoeducation on the cognitive triangle and maintenance cycles. Engaged in group discussion reviewing the impact of daily activities and behaviors in either reinforcing unhealthy maintenance cycles and depression or assisting in reducing symptoms (?down? vs ?up? activities). Client identified common ?down? activities they engage in as: not drinking water, listening to sad music, not making time for self-care, and skipping her medication. Common ?Up? activities client identified included: giving herself scheduled time away from her kids, listening to upbeat music, making lists, cleaning, and talking to friends. Appeared to benefit from increased awareness of current behaviors and impact these have on mental health. Recommended to continue IOP tx to stabilize moods, reduce irritability, and prevent decompensation. Narrative Note: []
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
--- NOTE | 2022-08-30 09:05 | BH.SGPN.GN ---
Behaviors/Verbalizations/Mental Status: [] Eye contact is good. Motor activity is appropriate. Appearance is casual. Speech is Appropriate. Mood is depressed/anxious. Affect is congruent. Thoughts are linear and logical. No evidence of psychosis. Reviewed daily check in sheet and no reports of suicidal ideations or intent. Client Response/Progress/Benefit: [] Pt was an active participant in group discussion. Attentive. Daily symptom tracker notes 2/5 for anxiety and irritability. Mental health wins include utilizing self-care and coping skills to manage thoughts, emotions, and stressors. Increased opposite-action which has increased motivation and sense of accomplishment. ? I feel better afterwards?. Emotion for today is ?relaxed?. Benefited from group support, encouragement, and feedback. Will continue in IOP to maintain safety, prevent decompensation/re-admission, and stabilize mood. Narrative Note: []
--- NOTE | 2022-08-30 11:10 | BH.SGPN.GN ---
Behaviors/Verbalizations/Mental Status: []Client alert and oriented, casually dressed and groomed. Eye contact good. Motor activity appropriate. Speech within normal limits. Affect congruent, mood euthymic. Thoughts linear, logical, no signs of hallucinations or delusions. Client Response/Progress/Benefit: []Client responded well to session, engaged and taking notes. Worked with group to identify characteristics of healthy and unhealthy relationships. Attentive during psychoeducation about characteristics of healthy, unhealthy, and abusive relationships. Client identified healthy areas of a current relationship to include: supporting each other?s interests, feel emotionally, and able to engage in her own hobbies and interests without judgement. Shared wanting to work on addressing feeling she cannot discuss difficult topics with them. Shared she can do so by setting and maintaining boundaries on specific topics. Appeared to benefit from identifying areas they are doing well in as well as areas client wants to work on to build healthier relationships. Client to continue IOP to increase healthy coping, reduce irritability, improve daily functioning, and prevent decompensation. Narrative Note: []
== END 2022-08-31 23:59 ==
LOC: BHIOP 08:00
PROVIDERS: PCP Student in an Organized Health Care Education/Training Program; Referring Provider Psychiatry & Neurology Psychiatry; Visit Provider Psychiatry & Neurology Psychiatry
DX: F60.3 Borderline personality disorder (principal); F31.63 Bipolar disorder, current episode mixed, severe, without psychotic features; F41.1 Generalized anxiety disorder; F43.10 Post-traumatic stress disorder, unspecified
CPT/HCPCS: 90792; H2012; H2020; S9480; T1002; 90832; 90834; 90837

== ENCOUNTER 2022-09-01 07:41 | Outpatient (RCR) | payer MEDICAID, SELFPAY ==
[2022-09-01 00:42] VITALS: BP 130/96; PULSE 62
--- NOTE | 2022-09-01 09:05 | BH.SGPN.GN ---
Behaviors/Verbalizations/Mental Status: [] Eye contact is good. Motor activity is appropriate. Appearance is casual. Speech is Appropriate. Mood is anxious. Affect is full. Thoughts are linear and logical. No evidence of psychosis. Reviewed daily check in sheet and pt reports 2/5 for suicidal thoughts. Below baseline. Client Response/Progress/Benefit: [] Pt was an active participant in group discussion. Attentive. Daily symptom tracker notes 3/5 for irritability and 2/5 for depression anxiety, and self-harm urges. Emotion is engaged. Mental health win was that she set up a medical appointment for new glasses. She has mentioned this before in group and how anxiety provoking medical appointments can be for her. 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 Group empathized with this and offered feedback on what has helped them overcome medical appointment anxiety. Another win was following through with self-care on her b-day. Benefited from group support, encouragement, and feedback. Narrative Note: []
--- NOTE | 2022-09-01 10:10 | BH.SGPN.GN ---
Behaviors/Verbalizations/Mental Status: []Client alert and oriented, casually dressed and groomed. Eye contact fair. Motor activity appropriate. Speech within normal limits. Affect congruent, mood euthymic. Thoughts linear, logical, no signs of hallucinations or delusions. Client Response/Progress/Benefit: []Client was an active participant in group discussions and activity. Attentive during psychoeducation. Client engaged in activity in which group was able to make connections about how can be easier to find positives in others compared to self. Engaged in interactive discussion on the definition of perspective, how perspective is formed, and why perspective is important in treatment. Client shared his perspective towards treatment today is positive which she noted the benefits of having a more positive perspective. Will continue in IOP to increase consistent use of healthy coping, challenge distortions, and prevent decompensation.
--- NOTE | 2022-09-01 11:13 | BH.SGPN.GN ---
Behaviors/Verbalizations/Mental Status: []Pt alert and oriented, casually dressed and groomed. Eye contact good. Motor activity appropriate. Speech within normal limits. Affect congruent, mood euthymic. Thoughts linear, logical, no signs of hallucinations or delusions. Client Response/Progress/Benefit: []Pt was attentive and contributed to small group discussion. Pt reflected on their perspective today which pt shared was hopeful and motivated Pt stated their perspective changes, but pt has been trying to give herself more credit and see the good things she is doing. Pt worked with group to identify strategies to challenge one?s perspective and one of these strategies was identifying and using strengths. Pt acknowledged one of their personal strengths of being open-minded and pt wants to work on challenging perspective by practicing dialectical thinking. Benefited from identifying personal strengths and strategies for challenging perspective. Pt to continue IOP tx to promote mood stability, combat distortions, and increase use of healthy coping skills. ? Narrative Note: []
--- NOTE | 2022-09-02 09:00 | BH.SGPN.GN ---
Behaviors/Verbalizations/Mental Status: [] Eye contact is good. Motor activity is appropriate. Appearance is casual. Speech is Appropriate. Mood is euthymic. Affect is full. Thoughts are linear and logical. No evidence of psychosis. Reviewed daily check in sheet and pt reports 05/13 for suicidal ideations. This is below baseline. Client Response/Progress/Benefit: [] Pt was an active participant in group discussion. Attentive. Daily symptom tracker notes 2 for depression, anxiety, irritability, and self-harm urges. Emotion for today is numb. She continues to utilize coping skills, thought reframing, and self-care throughout the day. Discussed a routine change this AM which led to negative automatic thoughts that she she just not even come in. According to patient routine changes can significantly increase her anxiety and lead to negative perspectives stating I feel like my whole day will be off. Group empathized and provided feedback and encouragement which was beneficial. Responded well to challenging thoughts. She is ruminating on finances and the need to get a job. 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 Will continue in IOP to maintain safety, prevent decompensation/re-admission, and to increase health coping skills. Narrative Note: []
--- NOTE | 2022-09-02 10:05 | BH.SGPN.GN ---
Behaviors/Verbalizations/Mental Status: []Pt alert and oriented, neatly dressed and groomed. Eye contact good. Motor activity appropriate. Speech within normal limits. Affect congruent, mood irritable. Thoughts linear, logical, no signs of hallucinations or delusions. Client Response/Progress/Benefit: []Pt responded well to session, attentive and providing to discussion. Pt connected with the quote and shared that feeling are good signals that help us see what is wrong, but sometimes lead to unhealthy choices. Pt gave example of when she feels guilt and shame, pt tends to personalize that there is something wrong with her. Group discussed other impacts of unmanaged guilt which included withdrawing from relationships and lack of boundaries. Pt participated in activity and recognized that when she felt frustrated, pt wanted to quit, but pt challenged herself not to. Pt appeared to benefit from learning about the different types of guilt and how unmanaged guilt can impact mental health. Pt will continue IOP tx to promote mood stability, reduce negative thinking patterns, and improve distress tolerance. Narrative Note: []
--- NOTE | 2022-09-02 11:10 | BH.SGPN.GN ---
Behaviors/Verbalizations/Mental Status: []Pt alert and oriented, casually dressed and groomed. Eye contact good. Motor activity appropriate. Speech within normal limits. Affect congruent, mood anxious and slightly irritable. Thoughts linear, logical, no signs of hallucinations or delusions. Client Response/Progress/Benefit: []Pt engaged participant AEB listening attentively to others and providing input throughout group. During challenge activity pt demonstrated increased agitation as the activity became hard. During processing client was able to connect if importance of distress tolerance when managing healthy/unhealthy guilt. Pt attentive during psychoeducation about different strategies to manage guilt. Pt worked with her small group to identify strategies to manage unhealthy guilt. Client shared she feels guilty when she believes she's not spending enough time with her kids. Client able to use strategies discussed to work through her feelings. Pt seemed to benefit from learning about strategies to manage healthy and unhealthy guilt. Pt to continue IOP to continue challenge distortions, continue using healthy skills, and prevent decompensation.
--- NOTE | 2022-09-06 09:00 | BH.SGPN.GN ---
Behaviors/Verbalizations/Mental Status: []Pt alert and oriented, casually dressed and groomed. Eye contact good. Motor activity appropriate. Speech within normal limits. Affect congruent, mood sad. Thoughts linear, logical, no signs of hallucinations or delusions. Reviewed pt?s symptom tracker, no risk for suicidal ideation, plan, or intent as of 09/06/22 Client Response/Progress/Benefit: []Pt responded well to session, attentive and engaged. Pt reports feeling weary this morning. Pt shared she is trying to find a job, but pt is not feeling hopeful about her prospects. Pt reported her wins include spending one on one time with her son and practicing self-care instead of forcing herself to be productive. Pt appeared to benefit from connecting with peers. Progress noted in pt's self-report of not engaging in self-harming, but pt continues to struggle with all or nothing thinking. Pt will continue IOP tx to promote mood stability, further increase distress tolerance skills, and improve self-care practices. Narrative Note: []
--- NOTE | 2022-09-06 10:10 | BH.SGPN.GN ---
Behaviors/Verbalizations/Mental Status: []Pt alert and oriented, casually dressed and groomed. Eye contact good. Motor activity appropriate. Speech within normal limits. Affect congruent, mood euthymic. Thoughts linear, logical, no signs of hallucinations or delusions. Client Response/Progress/Benefit: []Pt receptive to session AEB contributing to discussion, as well listening attentively to others, and taking notes. Worked with group to brainstorm the positive and negative aspects of stress on physical and mental health. Group did well to identify the benefits of stress as well as the impact of distress on performance, relationships, and mental health. Pt identified their personal top stressors as: parenting, finances, and finding a job. Pt seemed to benefit from increased awareness of current stressors and impact stress has on mental health. Recommended to continue IOP tx to challenge distorted thoughts, continue use of healthy coping, and prevent decompensation.
--- NOTE | 2022-09-06 11:10 | BH.SGPN.GN ---
Behaviors/Verbalizations/Mental Status: []Eye contact is good. Motor activity is appropriate. Appearance is casual. Speech is Appropriate. Mood is anxious and euthymic. Affect is congruent. Thoughts are linear and logical. No evidence of psychosis. Client Response/Progress/Benefit: []Pt was an active participant in group discussions and experiential activity. Attentive during psychoeducation on the 4 A's (Avoid, adapt, alter, accept) of coping with stress as well as strategies to identify stressors in which one has no control, little control, or a great deal of control over. Shared that she would benefit most from working on adapting her thinking in regards to coping with stress of parenting and adding another caregiver/parent to the parenting responsibilities for her children. Was able to identify the connection between the experimental activity and utilization of stress management skills. Benefited from increased awareness of stress management strategies. Will continue in IOP to maintain safety, prevent decompensation, and improve mood stability. Narrative Note: []
--- NOTE | 2022-09-06 14:57 | BH.MDN_ITS ---
Multi-Disciplinary Note - Note 45-min Individual Time Started:: 08:31 Date: 09/06/22 Purpose of session/treatment goals addressed:: To address tx plan goal #2. Eye Contact:: Good Motor Activity:: Restless Appearance:: Casual Speech:: Appropriate Mood:: Anxious, Irritable, Dysthymic Affect:: Congruent Thoughts:: Linear, Logical, No evidence of hallucinations/delusions noted Staff Interventions:: thought challenging, CBT techniques, strengths perspecti ve, goal setting - to communicate occupational needs with grandparents Client Response:: Pt receptive of session, engaged throughout. Reports feeling somewhat more ?on edge? and stressed today as she is beginning to experience increased pressure to find a job. Reports that her finances have become increasingly difficult to manage and she is struggling with negative thoughts, such as ?I am failing if I don?t have a job?. Able to identify mistaken beliefs reinforcing thoughts of failure and anxiety. Pt recognizes the safety, stability, and structure of consistent employment would reduce financial stress as well as aid in maintaining her mental health and wellness. However, pt also provided insight that ?rushing into the first job I find? could lead to increased stress and difficulties with making time for consistent self-care. Identified the importance of being intentional about the type of employment she pursues to best set herself up for success. Identified several specific characteristics she is looking for in potential employment and several to avoid. Reports needing something with little physical demand, limited customer interaction, and preferably 1st shift. 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 Shared she wants to ensure she still has time to balance employment with self-care and spending time with her children. Went on to discuss feeling increased pressure from her boyfriend and grandparents to begin looking for employment as well. Recognizes that no one has explicitly told pt she must find a job now but feels obligated as they have expressed concerns regarding pt finances. Noted increased irritability due to guilt and anxiety regarding finances which has begun to impact her relationships as well. With further discussion, pt able to recognize the importance of discussing her thoughts, feelings, and concerns, as well as communicating the mental health significance of being more intentional with the type of position she takes. Reports feeling most anxious about discussing this with her boyfriend and therefore plans to start small by first having the conversation with her grandparents. Believes discussing these concerns with her grandparents will provide some stress release as well as encourage her to begin the conversation with her boyfriend. Risks/Concerns:: Client denies any suicidal ideations, plan, or intent as of 09/06/22. Denies any homicidal ideations. Reports medication issues regarding ongoing irritability associated with Vraylar and has weaned herself off this. Denies informing her outpatient psychiatrist. Willing to walk next door to outpatient psychiatrist office following group to provide updated information on medication changes. Denies any self-harming behaviors. Progress Toward Goals/Plan:: Client progress remains variable. Reports recent reduction in self-care behaviors and shared this may be contributing to increased irritability and difficulties in coping with stress. Shared that she Has several stressors associated with her , as well as increasing financial difficulties. Noted that she has begun taking this stress out on her relationships and provided insight that this may be due to ?stuffing my emotions rather than communicating and doing something about them?. Willing to create small self-care and communication goals to prevent further impact on pt mental health and interpersonal relationships. Continues to report worry, difficulties managing interpersonal stressors due to limited communication, avoidance, and poor boundary setting. Endorses negative self-talk and guilt. Client can benefit from ongoing IOP tx to help client continue to improve mood stability, promote healthy communication and boundary setting, and well as prevent decompensation. Time Stopped:: 09:10
--- NOTE | 2022-09-09 09:00 | BH.SGPN.GN ---
Behaviors/Verbalizations/Mental Status: [] Client alert and oriented, casually dressed and groomed. Eye contact good. Motor activity appropriate. Speech within normal limits. Affect congruent, mood anxious. Thoughts linear, logical, no signs of hallucinations or delusions. Reviewed client?s symptom tracker, no risk for suicidal ideation, plan, or intent as of 09/09/22 Client Response/Progress/Benefit: []Client responded well to session, offering ideas to peers and providing encouragement. Client reports feeling rundown this morning as Client discussed stressor of an ultrasound she has to go to today. Client indicated this is triggering due to past stillbirth. Client discussed her recent mental health wins which included that she participated in a job interview over the phone and that she is increasing her self-care without feeling guilty. Client appeared to benefit from reflecting on her growth. Client will continue IOP tx as Client continues to struggle with depression abd negative self-talk. Narrative Note: []
--- NOTE | 2022-09-09 10:10 | BH.SGPN.GN ---
Behaviors/Verbalizations/Mental Status: [] Eye contact is good. Motor activity is appropriate. Appearance is disheveled. Speech is Appropriate. Mood is depressed. Affect is concurrent. Thoughts are linear and logical. No evidence of psychosis. Client Response/Progress/Benefit: [] Pt participated at times during group discussions. Attentive during psychoeducation. Engaged during experiential activity in which she was tasked with managing emotions related to accepting limited control of the activity. Participated during interactive discussion as group worked to define and better understand the role and benefits of acceptance in mental health. Along with peers worked to identify barriers to acceptance which include; feeling out of control, feeling like one is giving up, leads to uncertainty of lack of control, can lead to feeling like a failure, makes one feel weak or vulnerable, and several others. Benefited from increased insight of the benefits and barriers to acceptance in mental health. Plan is to continue in IOP to prevent decompensation/re-admission to psych unit, increase healthy coping, and improve functioning. Narrative Note: []
--- NOTE | 2022-09-09 11:10 | BH.SGPN.GN ---
Behaviors/Verbalizations/Mental Status: []Pt alert and oriented, casually dressed and groomed. Eye contact good. Motor activity appropriate. Speech within normal limits. Affect congruent, mood euthymic and anxious. Thoughts linear, logical, no signs of hallucinations or delusions. Client Response/Progress/Benefit: []Pt responded well to session AEB taking notes and contributing to discussion throughout. Pt engaged as group continued discussion on acceptance and the mental health benefits of practicing acceptance. Pt and peers identified what makes acceptance challenging and pt completed a self-reflection exercise on what is hard to accept in pt's life. Pt identified struggling to accept that she needs additional help with caregiving responsibilities for her kids. Group identified strategies to increase acceptance and pt shared wanting to focus on using thoughts challenging and setting realistic goals what she is capable of. Pt appeared to benefit from gaining insight and learning strategies to increase acceptance. Pt will continue IOP tx to decrease anxiety, improve mood stability, and prevent decompensation. Narrative Note: []
--- NOTE | 2022-09-12 09:05 | BH.SGPN.GN ---
Behaviors/Verbalizations/Mental Status: [] Eye contact is good. Motor activity is appropriate. Appearance is disheveled. Speech is Appropriate. Mood is depressed. Affect is conguent. Thoughts are linear and logical. No evidence of psychosis. Client Response/Progress/Benefit: [] Pt was an active participant in group discussions. Attentive. Mental health win was that she advocated for herself at her PCP?s office. She shared recent medical issues which are impacting her physical and mental health. Attempting to utilize skills and opposite-action, however admits to struggling. She is concerned about finances as well and had a job interview this week. Emotion for today is ?optimistic?. Current struggling due in large part to somatic issues related to . Benefited from group support, encouragement, and feedback. Will continue in IOP to maintain safety, stabilize mood, and prevent decompensation/re-admission. Narrative Note: []
--- NOTE | 2022-09-12 11:10 | BH.SGPN.GN ---
Behaviors/Verbalizations/Mental Status: []Pt alert and oriented, casually dressed and groomed. Eye contact good. Motor activity appropriate. Speech within normal limits. Affect congruent, mood agitated. Thoughts linear, logical, no signs of hallucinations or delusions. Client Response/Progress/Benefit: []Pt receptive of session, engaged throughout AEB actively listening and contributing to discussion, as well as taking notes.? Pt participated in the experiential activity and did well to communicate ideas with peers and manage emotions. Pt and group processed how being open-minded and having good communication positively impacted the group. Group worked together to identify different coping skills to help manage pitfalls. Pt identified pitfalls they struggle with and shared wanting to work on pitfall of disqualifying the positives by reminding herself that ?thoughts are thoughts not facts.? Benefited from identifying personal pitfalls and strategies to overcome these pitfalls. Will continue IOP tx to increase the use of healthy coping skills, reduce negative thinking patterns, and improve distress tolerance. Narrative Note: []
--- NOTE | 2022-09-12 15:07 | BH.MDN ---
Multi-Disciplinary Note - Note 45-min Individual Time Started:: 12:03 Date: 09/12/22 Purpose of session/treatment goals addressed:: To address current stressors impacting pt emotion regulation, as well as work on tx plan goal #2. Eye Contact:: Good Motor Activity:: Restless Appearance:: Casual Speech:: Appropriate Mood:: Anxious, Dysthymic Affect:: Congruent Thoughts:: Linear, Logical, No evidence of hallucinations/delusions noted Staff Interventions:: thought challenging, motivational interviewing, CBT techniques, strengths perspective, goal setting Client Response:: Pt receptive of session, willing to stay after group sessions to meet individually. Reports feeling overwhelmed and unsure, stating ?I don?t know if I?m doing the right things?. Went on to explain that she and her boyfriend were able to see the baby?s heartbeat at her ultrasound on Monday. Expressed excitement but also feels this triggered anxiety and PTSD related to her daughter?s stillbirth last summer. Pt shared that this has had similar complications as her stillbirth did in the early gestational stages and she fears ?something bad will happen again?. Worked with therapist to normalize and process her anxieties/ fear of the unknown, as well as reviewed the steps pt is actively taking to ensure her is as healthy as possible. Pt discussed taking steps to proactively seek medical intervention and additional support by working with home health to have regular IV fluids and a Zofran pump to address issues with nausea and dehydration. Pt shared that her prior stillbirth and current high risk status has contributed to an increase in her partner?s anxiety as well. Shared he has become ?overbearing? as a result, describing her boyfriend checking-in several times a day,, becoming upset if pt doesn?t respond right away, and wanting to discuss the and financial concerns at all opportunities. Pt shared she often becomes overwhelmed and ends up shutting down and ?tuning him out? as a result. Noted increased tension and conflict when spending time together as a result. Pt reports feeling irritable and expressed increased urges to avoid talking with him, as she feels she does not have the emotional energy to continue to discuss the same stressors for prolonged periods of time almost daily. Acknowledges the importance of discussing her emotional fatigue and need for a break with her partner; however, shared this has been difficult as she been conditioned to avoid conflict/difficult conversations via minimizing or shutting down. Pt reports wanting to establish a healthier foundation of communication with her partner and discussed that this will be crucial to successful parenting and conflict resolution long-term. Pt reports that letting him know she would like to discuss these concerns and establishing a specific time/day to do so will aid in holding her accountable. Discussed plans to have the conversation about her emotional and self-care needs, as well as healthy communication strategies they can use before the end of the week. Risks/Concerns:: Client denies any suicidal ideations, plan, or intent as of 09/12/22. Denies any homicidal ideations. Denies any medication issues. Denies any self-harming behaviors. Progress Toward Goals/Plan:: Client progress remains variable. Reports she is continuing to do well to refrain from engaging in self-harming behaviors and denies experiencing any urges to self-harm, as well as denies any suicidal ideation, plan or intent. Pt reports doing well to challenge herself to ask her grandparents to watch her children in order for pt to have time for independent self-care. Continues to report challenging negative thoughts, though reports struggling at times with challenging thoughts of being a failure. Pt has had increased pressure to secure employment due to finances which has reinforced anxiety and fears of failing her children. Additionally, pt has increased medical stress due ot high risk . Reports ongoing worry, anxiety about the future, difficulties with consistent self-care, guilt, and irritability. Client can benefit from ongoing IOP tx to help client continue to improve mood stability, promote healthy communication and boundary setting, and well as prevent decompensation. Time Stopped:: 12:48
--- NOTE | 2022-09-16 10:10 | BH.SGPN.GN ---
Behaviors/Verbalizations/Mental Status: []Pt alert and oriented, casually dressed and groomed. Eye contact good. Motor activity appropriate. Speech within normal limits. Affect congruent, mood euthymic. Thoughts linear, logical, no signs of hallucinations or delusions. Client Response/Progress/Benefit: []Pt was an active participant in group discussion and experiential activity. Attentive during psychoeducation on possible causes to developing and maintain unhealthy coping skills which can impact mental health. Pt contributed during interactive discussion identifying common unhealthy coping skills and identified personal ones as sarcasm to deflect and self-harm. Able to make connections between experiential activity (folder towers) and importance of having a solid base of internal and external coping skills. Benefited from increased awareness of internal and external coping skills and identifying unhealthy coping skills. Pt will continue IOP tx to further decrease self-sabotaging behaviors, improve mood stability, and increase self-care. Narrative Note: []
--- NOTE | 2022-09-16 11:00 | BH.SGPN.GN ---
Behaviors/Verbalizations/Mental Status: []Pt alert and oriented, casually dressed and groomed. Eye contact good. Motor activity appropriate. Speech within normal limits. Affect congruent, mood euthymic. Thoughts linear, logical, no signs of hallucinations or delusions Client Response/Progress/Benefit: []Pt responded well to session, taking notes and contributing. Group discussed the different categories of coping skills which included distraction, emotional release, grounding, self-love, and thought challenging.? Pt participated in creating a coping skills ?menu? from the five categories of coping skills. Pt's coping skill menu included: video games, belly breathing, alone time, journaling, and challenging distortions. Appeared to benefit from increasing repertoire of healthy coping skills. Will continue IOP tx to increase healthy coping skills, challenge distortions, and prevent decompensation.
--- NOTE | 2022-09-19 09:00 | BH.SGPN.GN ---
Behaviors/Verbalizations/Mental Status: [] Eye contact is good. Motor activity is appropriate. Appearance is disheveled. Speech is Appropriate. Mood is depressed. Affect is congruent. Thoughts are linear and logical. No evidence of psychosis. Reviewed daily check in sheet and pt reports 1/10 for suicidal thoughts and 2/5 for intent. Below baseline. Client Response/Progress/Benefit: [] Pt participated at times during the group discussion. Attentive. Daily symptom tracker notes 3/5 for depression, 2/5 for anxiety, and 3/5 for self-harm urges. Emotion for today is depressed. Mental health wins include completing laundry and putting the clothes away. Another win is that she experienced a change in her routine and kept going rather than give, isolate, or avoid. Insight on how this change in perspective, reframe, and opposite action skills have been helpful. Admits to struggling recently in large part to physical symptoms associated with and feeling overwhelmed. Regression noted per pt report. Benefited from group support, encouragement, and feedback. Will continue in IOP to maintain safety, prevent decompensation/re-admission, and to stabilize mood. Narrative Note: []
--- NOTE | 2022-09-19 10:12 | BH.SGPN.GN ---
Behaviors/Verbalizations/Mental Status: []Pt alert and oriented, appropriate grooming/appearance. Eye contact fair. Motor activity appropriate. Speech within normal limits. Affect congruent, mood depressed and anxious. Thoughts linear, logical, no signs of hallucinations or delusions. Client Response/Progress/Benefit: []Pt was an active participant in group discussions. Attentive during psychoeducation. Contributed during interactive discussions in which peers attempted to define crisis. Pt identified examples of potential crisis. Group also worked together to identify unhealthy responses to crisis which included; isolation, self-harm, substance abuse, avoidance, and lashing out. Pt identified personal warning signs as feeling disconnected, isolating/avoiding others, and urges to self-harm. Benefited from increased understanding of crisis and awareness of personal responses to crisis. Pt will continue IOP tx to prevent decompensation and continue to promote healthy skill application and communication with supports, as well as use of thought challenging skills. Narrative Note: []
--- NOTE | 2022-09-19 11:12 | BH.SGPN.GN ---
Behaviors/Verbalizations/Mental Status: []Pt alert and oriented, casually dressed and groomed. Eye contact good. Motor activity appropriate. Speech within normal limits. Affect flat, mood depressed. Thoughts linear, logical, no signs of hallucinations or delusions. Client Response/Progress/Benefit: []Pt engaged throughout group session AEB providing contributions to discussion and working within the small group. Pt identified their personal warning signs for crisis and gained further awareness of earliest warning signs. Pt created a crisis action plan to help Pt better manage personal crisis warning signs. Pt shared an action plan for their warning sign of urges to self-harm which include: opposite action, healthy distractions, reaching out to supports, and rewarding herself for not engaging in the behaviors. Pt appeared to benefit from creating a crisis action plan and increasing self-awareness. Pt to continue IOP tx to reduce use of unhealthy coping skills, increase impulse control, and improve mood stability. ? Narrative Note: []
--- NOTE | 2022-09-19 14:37 | BH.MDN ---
Multi-Disciplinary Note - Note 45-min Individual Time Started:: 12:09 Date: 09/19/22 Purpose of session/treatment goals addressed:: Pt reports struggling today and asked to meet individually to further discuss stressors impacting mood stability. Eye Contact:: Good Motor Activity:: Appropriate Appearance:: Casual Speech:: Appropriate Mood:: Anxious, Depressed Affect:: Congruent Thoughts:: Linear, Logical, No evidence of hallucinations/delusions noted Staff Interventions:: thought challenging, motivational interviewing, CBT techniques, mindfulness skills, strengths perspective, other - created a safety plan and reviewed alternatives to self-harming Client Response:: Pt tearful upon entering session. Reports ongoing feelings of failing and being overwhelmed. Shared struggling with thoughts of ?I should be better by now.?, ?I should be able to go back to work full-time?, and ?I should be better at balancing everything?. Shared primary stressors include financial pressure to return to work, balancing spending time with her kids and partner with time for independent self-care, as well as her medical concerns and anxiety surrounding these concerns. Shared struggling to remain patient with herself as she continues to work on her mental health and expecting herself to be able to manage all of her stressors without difficulty or it impacting her mental health/mood stability. Responded with to gentle challenging and able to identify that her expectations for herself may be unrealistic. Shared that she would not expect the same of anyone else in the same situation and would likely encourage someone else to get help where possible. Reports the pressure of current expectations for herself has resulted in reduced self-care, increased negative self-talk/criticism, feeling like a failure, irritability, a desire to push her supports away, and increased urges to engage in self-harming behaviors. Reports passive thoughts of ?I should probably start stocking up on pills in case I fail at everything?. Denies active SI, or intent and identified her children and current as protective factors. Acknowledges that harming herself would not actually reduce her stress or solve anything. Reports that self-harming and having suicide as an option allow her to feel a sense of control when several current stressors feel out of her control. Insight that his is how she has learned to cope for much of her life and often feels most comfortable in times of increased stress. Expressed desire to create a healthy coping plan for improving management of current stressors and maintaining safety. Identified that the coping skills she uses, her communication with supports, and thoughts she focuses on are all in her control. Shared wanting to communicate her difficulties in balancing/prioritizing things with her partner to work together to establish more realistic and agreed upon expectations for how much time they spend together. Additionally, shared wanting to make independent self-care time more of a consistent priority as she feels her mental health is overall more stable when able to do so. Finally, discussed plans to more consistently work on identifying and challenging her expectations of self when noticing warning signs that they may be impacting her mental health. Risks/Concerns:: Client denies any active suicidal ideations, plan, or intent as of 09/19/22. Denies any homicidal ideations. Denies any medication issues. Denies any self-harming behaviors. Does however report increased thoughts of ?I should start stockpiling medications? and urges to self-harm due to difficulties managing current stressors. Denies engaging in stockpiling behaviors. Pt gave therapist a blade she had intended to self-harm with and denies access to any other blades or other potentially harmful items. Receptive of creating a safety plan. Pt future oriented. Willing to attend group tomorrow if feeling she needs the additional support. Progress Toward Goals/Plan:: Some regression noted. Pt reports an increase in self-harming urges and recent passive thoughts of I should start stockpiling medication. Denies plan or intent to act on these thoughts and able to see the potential consequences of these behaviors on further increasing mental health struggles. Shared feeling overwhelmed by current stressors and although rationally knows it would be beneficial to communicate with supports and ask for help, is struggling with guilt, feeling like a burden/failure, and discomfort preventing her from doing so. Willing to challenge this in session and create small steps for improving willingness to ask for help. Willing to safety plan. Will continue in IOP tx to maintain safety, prevent decompensation, and improve application of self-care and healthy distress tolerance skills. Time Stopped:: 12:50
--- NOTE | 2022-09-20 09:02 | BH.SGPN.GN ---
Behaviors/Verbalizations/Mental Status: []Eye contact fair to good. Motor activity appropriate. Speech within normal limits. Affect congruent, mood anxious and depressed. Thoughts linear, logical, no signs of hallucinations or delusions. Reviewed client?s symptom tracker, no risk for suicidal ideation, plan, or intent as of 09/20/2022. Client Response/Progress/Benefit: []Client responded well to session, attentive and willing to process with group. Identified current mental health wins as spending time watching a movie with her kids and completing independent self-care the previous night. Noted struggling with prioritizing herself and often puts pressure on herself to have everything clean and accomplished before allowing herself to take a break. Did well to challenge these thoughts and identify feeling less stressed and in a better mood as a result of sitting with the uncomfortable and practicing self-care. Current stressor noted as ongoing difficulties with feeling overwhelmed by her various medical and interpersonal stressors. Group normalized pt emotions and provided supportive feedback and suggestions. Client appeared to benefit from group support and encouragement. Recommended continued IOP tx to continue to increase overall functioning, improve distress tolerance and prevent maladaptive coping, as well as promote mood stability. Narrative Note: []
--- NOTE | 2022-09-20 10:15 | BH.SGPN.GN ---
Behaviors/Verbalizations/Mental Status: []Pt alert and oriented, casually dressed and groomed. Eye contact good. Motor activity appropriate. Speech within normal limits. Affect congruent, mood calm. Thoughts linear, logical, no signs of hallucinations or delusions. Client Response/Progress/Benefit: []Pt was an active participant during interactive group discussions. Attentive during psychoeducation on the six types of boundaries. Pt along with peers contributed to interactive discussion on defining what a boundary is and group identified challenges to setting boundaries. Pt discussed personal barriers of not wanting to hurt people?s feelings and fear of losing relationships. Group reviewed the 6 types of boundaries. Pt stated ?I violate my own time boundaries all the time.? Pt benefited from increased awareness and insight on the importance/benefit to setting health boundaries. Will continue IOP tx to increase distress tolerance skills, improve daily functioning, and reduce intensity of self-harm urges. Narrative Note: []
--- NOTE | 2022-09-20 11:20 | BH.SGPN.GN ---
Behaviors/Verbalizations/Mental Status: []Pt alert and oriented, casually dressed and groomed. Eye contact good. Motor activity appropriate. Speech within normal limits. Affect congruent, mood dysthymic. Thoughts linear, logical, no signs of hallucinations or delusions. Client Response/Progress/Benefit: []Pt responded well to session AEB listening attentively to peers and providing input. Pt attentive during psychoeducation on the different boundary styles. Pt identified she is more porous with her emotional and sexual boundaries. Stated she is rigid with her material and time boundaries. Pt was given a handout on strategies for healthy boundary setting. Appeared to benefit from increasing insight to boundary setting and the impacts on mental health. Seemed to benefit from increased awareness of boundary styles and strategies to improve setting boundaries. Will continue IOP tx to challenge distorted thoughts, continue use of healthy coping skills, and prevent decompensation.
--- NOTE | 2022-09-21 09:00 | BH.SGPN.GN ---
Behaviors/Verbalizations/Mental Status: [] Pt alert and oriented, neatly dressed and groomed. Eye contact fair. Motor activity appropriate. Speech within normal limits. Affect constricted, mood sad. Thoughts linear, logical, no signs of hallucinations or delusions. Reviewed pt?s symptom tracker, no risk for suicidal ideation, plan, or intent 09/21/22 Client Response/Progress/Benefit: []Pt responded well to session, attentive and engaged. Pt reports feeling detached and depressed this morning as pt has a doctor's appointment for her which is triggering pt's anxiety and grief. Pt shared she had the urge to self-harm, but instead gave her razors to a support person. Pt shared another mental health win is getting to IOP despite wanting to avoid due to anxiety. Pt appeared to benefit from reflecting on application of healthy coping skills. Pt will continue IOP tx to promote mood stability, reduce self-harm urges, and increase distress tolerance skills. Narrative Note: []
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
--- NOTE | 2022-09-21 10:10 | BH.SGPN.GN ---
Behaviors/Verbalizations/Mental Status: [] Eye contact is good. Motor activity is appropriate. Appearance is disheveled. Speech is Appropriate. Mood is depressed. Affect is congruent. Thoughts are linear and logical. No evidence of psychosis. Client Response/Progress/Benefit: [] Pt participated at times during group discussions and interactions. Attentive during psychoeducation on automatic negative thoughts (ANTS) and cognitive distortions. This group was very psychoeducation heavy. Pt did participated during interactive discussions in which peers defined and gave examples of ANTS. Participated during interactive discussion on definition of cognitive distortions and examples related to the 10 cognitive distortions presented. Benefited from increased insight and awareness of cognitive distortions and their impact on emotions and behaviors. Will continue in IOP to maintain safety, decrease self-injurious behaviors, prevent decompensation/re-admissin to psych, and to improve functioning. Narrative Note: []
--- NOTE | 2022-09-21 11:20 | BH.SGPN.GN ---
Behaviors/Verbalizations/Mental Status: []Eye contact is good. Motor activity is appropriate. Appearance is casual. Speech is WNL. Mood is depressed and anxious. Affect is congruent. Thoughts are linear and logical. No evidence of psychosis. Client Response/Progress/Benefit: []Pt did well to remain an engaged participant AEB providing input during small group discussion and engaging in activity. Activity involved working with peers to answer questions related to psychoeducation on cognitive distortions and practicing reframing distorted thoughts. Pt collaborated with the group to determine the answers. Able to identify the impact distortions has on pt?s mental health and shared learning that she has more ?emotional reasoning? type thoughts than she had previously recognized. Shared these often reinforce thoughts of being a failure or unable to succeed. Benefited from rehearsing ways to challenge/reframe cognitive distortions and by gaining increased insight into examples/definitions of 10 most common cognitive distortions. Will continue IOP to improve coping skill application, challenge distorted thought patterns, maintain safety, and prevent decompensation. Narrative Note: []
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
--- NOTE | 2022-09-26 09:00 | BH.SGPN.GN ---
Behaviors/Verbalizations/Mental Status: []Eye contact good. Motor activity appropriate. Speech within normal limits. Affect constricted, mood depressed. Thoughts linear, logical, no signs of hallucinations or delusions. Reviewed client?s symptom tracker, no risk for suicidal ideation, plan, or intent as of 09/26/2022- pt's scores are within her baseline. Client Response/Progress/Benefit: []Pt responded well to session, attentive and engaged. Pt reports feeling dreary this morning as pt stated she was emotionally low last week which led to pt ignoring a lot of things that pt now feels that she has to address. Pt stated despite feeling down and stressed, pt has not self-harmed recently. However, pt shared she has been doing nothing as pt feels that there is not a coping skill to replace self-harm. Another mental health win for pt is that she spent time with her best friend recently. Pt appeared to benefit from reflecting on her reduction of self-harm but pt can benefit from utilizing healthy coping skills to manage urges. Pt will continue IOP tx to prevent decompensation, reduce negative thinking patterns, and improve distress tolerance. Narrative Note: []
--- NOTE | 2022-09-26 10:10 | BH.SGPN.GN ---
Behaviors/Verbalizations/Mental Status: []Client alert and oriented, casually dressed and groomed. Eye contact good. Motor activity appropriate. Speech within normal limits. Affect congruent, mood dysthymic. Thoughts linear, logical, no signs of hallucinations or delusions. Client Response/Progress/Benefit: []Client was an active participant in group discussions and activity. Attentive during psychoeducation. Client engaged in activity in which group was able to make connections about how can be easier to find positives in others compared to self. Engaged in interactive discussion on the definition of perspective, how perspective is formed, and why perspective is important in treatment. Client shared her perspective is between both positive and negative towards treatment. Client stated her hopeful perspective has helped her stay in treatment despite having a difficult time staying stable. Reported her negative perspective makes it hard to believe she can really get/stay better. Will continue in IOP to increase consistent use of heatlthy coping skills, challenge distorted thoughts, and prevent decompensation.
--- NOTE | 2022-09-26 11:20 | BH.SGPN.GN ---
Behaviors/Verbalizations/Mental Status: []Pt alert and oriented, casually dressed and groomed. Eye contact good. Motor activity appropriate. Speech within normal limits. Affect congruent, mood anxious. Thoughts linear, logical, no signs of hallucinations or delusions. Client Response/Progress/Benefit: []Pt was attentive and contributed to small group discussion. Pt reflected on the impact her stress level has on her perspective, sharing she struggles with assuming the worst when under increased stress. Pt worked with group to identify strategies to challenge one?s perspective which group identified: thought challenge, reaching out to supports, grounding skills, and accomplishment log. Connected with discussion on the importance of recognizing personal strengths in challenging perspective. Pt acknowledged a personal strength of being honest and pt wants to work on challenging perspective by practicing dialectical thinking. Benefited from identifying personal strengths and strategies for challenging perspective. Pt to continue IOP tx to promote mood stability, promote healthy boundaries, and increase use of healthy coping skills. Narrative Note: []
--- NOTE | 2022-09-26 14:56 | BH.MDN_ITS ---
Multi-Disciplinary Note - Note 45-min Individual Time Started:: 12:11 Date: 09/26/22 Purpose of session/treatment goals addressed:: To address current stressors reinforcing depressive sx and preventing consistent application of self-care. Additionally, discussed discharge planning. Eye Contact:: Good Motor Activity:: Appropriate Appearance:: Casual Speech:: Appropriate Mood:: Anxious, Dysthymic Affect:: Congruent Thoughts:: Linear, Logical, No evidence of hallucinations/delusions noted Staff Interventions:: thought challenging, motivational interviewing, psychoeducation on: - reviewed Healthy vs. unhealthy relationship characteristics and importance of boundaries in healthy relationships, discharge planning, strengths perspective, goal setting Client Response:: Pt receptive of session, willing to stay after group sessions to meet individually. Reports feeling less anxious and overwhelmed than the prior week; however, is continuing to struggle with limited motivation, low energy, and urges to shut down over that past several days. Reports that this may in part have been a side effect of being on a Zofran pump and that since this was discontinued on Monday, she has slowly started to see an increase in energy. Self-disclosed struggling with consistent self-care in the past 2 weeks despite recognizing the importance in promoting mood stability and preventing suicidal ideation. Pt shared that when she had felt her most stable she had been actively making time for herself and balancing ?not so fun but necessary? self- care tasks, such as laundry, with enjoyable self-care like playing the piano. Pt reports that getting back into a more consistent self-care routine would likely aid in continuing to improve her mood and reduce overall stress levels. Pt shared she has also tried to establish a boundary with her boyfriend that talking about serious topics several times a day or first thing in the morning tends to emotionally fatigue her and lead to shutting down. Noted struggling to maintain this boundary when it was challenged, and she feared disappointing her boyfriend. Able to challenge emotional reasoning and identify the importance of discussing expectations and creating healthy boundaries for both their mental health. Identified times communication is more difficult for her and times she is more capable of difficult discussions to use as a guide for discussing healthy communication expectations with her boyfriend. Additionally, identified a goal of rewarding herself with playing piano after completing a load of laundry today. Risks/Concerns:: Client denies any active suicidal ideations, plan, or intent as of 09/26/22. Denies any homicidal ideations. Denies any medication issues. Denies any self-harming behaviors. Progress Toward Goals/Plan:: Client progress remains variable. Reports she is continuing to do well to refrain from engaging in self-harming behaviors and denies experiencing any urges to self-harm over the weekend which is progress compared with early last week. Pt reports plans to begin a new weekend part-time job this week and reports anxiety but excitement about doing so. Shared struggling with balancing time with her kids, partner, and self which continues to be her primary stressor. Self-reports inconsistent use of skills and acknowledges the impact this has on maintaining consistent progress. Able to work on improving her ability to communicate and establish boundaries and discussed a desire to continue to focus on reinforcing these boundaries. Plan is for pt to remain in IOP tx until the end of next week to continue to provide support as she begins a new job this week. Time Stopped:: 12:54
--- NOTE | 2022-09-27 09:05 | BH.SGPN.GN ---
Behaviors/Verbalizations/Mental Status: [] Eye contact is good. Motor activity is appropriate. Appearance is casual. Speech is Appropriate. Mood is depressed. Affect is congruent. Thoughts are linear and logical. No evidence of psychosis. Reviewed daily check in sheet and pt reports 2/10 for suicidal thoughts which is below baseline. Client Response/Progress/Benefit: [] Pt participated at times during the group discussion. Attentive. Daily symptom tracker notes 3.5 for depression and 2/5 for anxiety. Emotion for today is optimistic. Mental health win was that she started the medication I was prescribed. Shared that she has been playing Dr. Llamas for the past several months which has not been very helpful. Insight that this could have added to her decompensation. Started the new medication last night. Participated in self-care last evening. Asked for feedback from the group regarding rumination and negative automatic thoughts about comment someone had made towards her lack of affection. Group provided feedback and support which was helpful. Progress noted per pt report as she is more optimistic and less depressed than last week. Will continue in IOP to maintain safety, prevent decompensation/re-admission, and to stabilie mood. Narrative Note: []
--- NOTE | 2022-09-27 10:10 | BH.SGPN.GN ---
Behaviors/Verbalizations/Mental Status: []Pt alert and oriented, casually dressed and groomed. Eye contact good. Motor activity appropriate. Speech within normal limits. Affect congruent, mood anxious and euthymic. Thoughts linear, logical, no signs of hallucinations or delusions. Client Response/Progress/Benefit: []Pt was an active participant, taking notes and contributing in group discussions and activities. Pt engaged during interactive discussion in which the group defined self-care and discussed its benefits. Group identified improved motivation, decreased depression, reduced stress, and better relationships.?Pt worked with peers in a small group to identify myths related to self-care and worked within group to bust these self-care myths. Pt identified personal barrier of telling herself that she does not deserve it and that it is selfish which keeps pt from practicing self-care. Benefited from increased awareness of self-care, its benefits, and the consequences of not utilizing self-care strategies. Will continue IOP tx to prevent decompensation, promote application of healthy coping skills, and reduce negative self-talk. Narrative Note: []
--- NOTE | 2022-09-27 11:15 | BH.SGPN.GN ---
Behaviors/Verbalizations/Mental Status: []Pt alert and oriented, casually dressed and groomed. Eye contact good. Motor activity appropriate. Speech within normal limits. Affect congruent, mood euthymic. Thoughts linear, logical, no signs of hallucinations or delusions. Client Response/Progress/Benefit: []Pt engaged participant AEB completing self-assessment worksheet and providing input throughout discussion. Participated in group discussion on the various areas of self-care. Pt completed worksheet identifying current self-care practices and what self-care activities pt wants to start using. Pt selected physical self-care to begin practicing more consistently. Pt plans to do this by taking her medications consistently. Appeared to benefit from completing the self-care evaluation and gaining insights into current self-care practices, as well as identifying areas in which pt ?would like to improve upon.?Will continue IOP to increase consistent use of healthy coping skills, challenge distorted thoughts, and prevent decompensation.
--- NOTE | 2022-09-30 10:10 | BH.SGPN.GN ---
Behaviors/Verbalizations/Mental Status: []Eye contact is good. Alert and oriented. Motor activity is appropriate. Appearance is casual. grooming is appropriate. Speech is Appropriate. Mood is anxious and dysthymic. Affect is congruent. Thoughts are linear and logical. No evidence of psychosis or hallucinations. Client Response/Progress/Benefit: []Client an active participate AEB providing limited contributions, however did appear to listen attentively to others and taking notes throughout. The group identified the impact of emotions on communication such as change in tone, body language, shutting down, misperceiving the communication, and reassurance seeking. Client shared struggling with reassurance seeking or shutting down when experiencing increased anxiety and guilt. During group activity, client did well to challenge herself to participate and reflected on feeling anxious when trying to communicate instructions to fellow participants in order to accomplish the group goal. Client benefited from session by gaining an increased understanding on the importance of managing emotions to improve daily functioning. Client will continue IOP to further improve mood stability, improve use of skills for better symptom management, and prevent decompensation. Narrative Note: []
--- NOTE | 2022-09-30 11:10 | BH.SGPN.GN ---
Behaviors/Verbalizations/Mental Status: []Pt alert and oriented, casually dressed and groomed. Eye contact good. Motor activity appropriate. Speech within normal limits. Affect congruent, mood stressed. Thoughts linear, logical, no signs of hallucinations or delusions. Client Response/Progress/Benefit: [] Pt engaged in session AEB Pt listening attentively to peers and providing input. Attentive during psychoeducation on 4 zones of regulation. Pt able to identify feelings and behaviors for each zone. Pt identified coping skills one can use to support self in each zone. Pt reports belief they are in the ?yellow? zone today and pt wants to focus on using opposite action and challenging negative thought patterns to help pt in this zone. Benefited from increased education on zones of regulation or stages of alertness for emotions and healthy coping skills to use for each zone. Will continue IOP tx to promote use of distress tolerance skills, improve self-confidence, and improve mood stability. Narrative Note: []
--- NOTE | 2022-10-05 08:45 | BH.MDN ---
Multi-Disciplinary Note Note 45-min Individual: Time Started:: 08:45 Date: 09/30/22 Purpose of session/treatment goals addressed:: Pt requested to meet with therapist to address current stressor impacting mood stability. Eye Contact:: Good Motor Activity:: Appropriate and Restless Appearance:: Casual Speech:: Appropriate Mood:: Anxious and Dysthymic Affect:: Congruent Thoughts:: Linear, Logical and No evidence of hallucinations/delusions noted Staff Interventions:: thought challenging, motivational interviewing, strengths perspective and other (reviewed healthy vs. unhealthy relationships traits) Client Response:: Pt receptive of session, actively engaged throughout. Reports struggling with increased anxiety, guilt, and indecision. Shared that she feels her relationship is no longer healthy or supportive and she is struggling with deciding how to address this. Went on to explain that her boyfriend has been more controlling and often requires pt to show him all her text messages and answer the phone as soon as he calls. Reports that he has struggled with jealousy and not trusting pt. Discussed receiving 15+ telephone call from him if she does not answer the phone. Pt described several conversations in which she has attempted to set boundaries and advocate for her own needs, however she often struggles to maintain these boundaries. Often ends up allowing her boyfriend to make decisions or look through her things despite not wanting him to. Shared he recently disclosed to her that he has been struggling with misusing over the counter medications which is a trigger for pt as her father has an addiction hx. Noted wanting to end the relationship but feels guilty as she is and she does not want to hurt his feelings. Receptive of reviewing traits of healthy vs. unhealthy relationships as well as complete a decisional balance exercise. Reports that long-term it would be healthier for her mental health and her children if she ended the relationship and focused on creating a healthy co-parent relationship. Challenged herself to challenge and replace thought distortions that she is responsible for how her boyfriend feels and responds to pt ending the relationship. Reviewed assertive communication strategies to aid pt in preparing for this conversation. Risks/Concerns:: Pt denies active suicidal ideations, plan, or intent as of 09/30/22. Pt is future oriented. Pt does continue to report passive SI but shared she feels more equipped to manage thoughts. Denies access to lethal means. Reports her children and current as primary protective factors. Reports ability to maintain safety. Future oriented. Progress Toward Goals/Plan:: Progress noted. Pt reports feeling significantly less depressed and anxious since admission and although she is facing a significant stressor, feels more capable of following through with healthy decision making. Able to challenge thought distortions in session and identify a healthy coping plan to follow through with her decision. Reports ability to manage feelings of loneliness by following through with this as well. Reports plans to begin a new job this weekend and is looking forward to this. Continues to struggle with consistent self-care, though is improving in this area as well. Reports readiness to d/c from IOP tx next week following completion of he first week in a new job. Will continue IOP tx until 10/07/22 to continue to promote medication compliance and healthy skill application, maintain mood stability, and prevent decompensation. Time Stopped:: 09:36
== END 2022-09-30 23:59 ==
LOC: BHIOP 07:41
PROVIDERS: PCP Student in an Organized Health Care Education/Training Program; Referring Provider Psychiatry & Neurology Psychiatry; Visit Provider Psychiatry & Neurology Psychiatry
DX: O99.341 Other mental disorders complicating pregnancy, first trimester (principal); F31.63 Bipolar disorder, current episode mixed, severe, without psychotic features; F41.1 Generalized anxiety disorder; O26.91 Pregnancy related conditions, unspecified, first trimester; F43.10 Post-traumatic stress disorder, unspecified; F60.3 Borderline personality disorder; Z3A.08 8 weeks gestation of pregnancy; O21.0 Mild hyperemesis gravidarum
CPT/HCPCS: 99214; H2012; H2020; S9480; 90834

== ENCOUNTER 2022-09-09 15:43 | Emergency (ER) | payer MEDICAID, SELFPAY ==
[2022-09-09 15:43] VITALS: BP 110/74; PULSE 81; RESP 19; TEMP 36.5; O2SAT 100; BMI 27.7
--- NOTE | 2022-09-09 17:07 | EDS_ITS ---
HPI HPI - GI History of Present Illness Chief Complaint: Nausea/Vomiting Informant: patient Nausea/Vomiting/Emesis GI Symptom: Positive for Nausea and Vomiting Quality: Positive for Nonbilious Diarrhea/Melena/Hematochezia GI Symptom: Negative for Diarrhea, Melena or Hematochezia Associated Symptoms Associated Symptoms: Negative for Dysuria, Frequency or Hematuria Narrative Narrative: Patient presents with nausea and vomiting that has been constant over the past couple days. Patient states she has been unable to keep anything down today. Patient is approximately 6 weeks and has a history of hyperemesis gravidarum from prior pregnancies. States patient denies any diarrhea, melena, or hematochezia. Patient denies any dysuria or hematuria. Patient denies any abdominal pain. Patient denies any fevers or chills. [facility] Medical History Allergic rhinitis Anxiety Asthma Bipolar 1 disorder, mixed, severe Borderline personality disorder Chronic cough Daytime hypersomnia Depression Urdrtbelba-yeremrv-fciiqrffv (DTP) vaccination Gastric reflux Generalized anxiety disorder History of IBS History of steroid therapy IBS (irritable bowel syndrome) Low-lying placenta in second trimester Non-smoker Pelvic pain Posterior auricular lymphadenopathy PTSD (post-traumatic stress disorder) Suicide attempt Vaginal delivery Vestibular migraine Wears contact lenses Wears glasses Home Medications albuterol sulfate 90 mcg/actuation aerosol inhaler 1 puff inhalation Q4H PRN PRN Asthma 08/17/17 [History Last Taken 08/11/17] epinephrine 0.3 mg/0.3 mL injection, auto-injector 0.3 mg IM DAILY PRN Allergies 08/17/17 [History Last Taken Unknown] fexofenadine 180 mg tablet 180 mg PO DAILY Check with primary doctor 06/25/19 [History Last Taken Unknown] pantoprazole 40 mg tablet,delayed release 40 mg PO BID Check with primary doctor 02/08/21 [History Last Taken 02/15/21 07:00] ipratropium bromide 21 mcg (0.03 %) nasal spray 2 spray intranasal BID Check with primary doctor 03/11/21 [History Last Taken Unknown] pyridoxine (vitamin B6) 500 mg tablet 500 mg PO DAILY Check with primary doctor 04/05/21 [History Last Taken Unknown] fluticasone 250 mcg-salmeterol 50 mcg/dose blistr powdr for inhalation (Advair Diskus) 1 inh inhalation BID Check with primary doctor 08/03/21 [History Last Taken Unknown] tiotropium bromide 1.25 mcg/actuation mist for inhalation (Spiriva Respimat) 2 puff inhalation DAILY ASTHMA 08/03/21 [History Last Taken Unknown] ferrous sulfate 325 mg (65 mg iron) tablet 325 mg PO BID 02/23/22 [History Last Taken Unknown] vitamin with calcium no.72-iron 27 mg-folic acid 1 mg tablet ( Vitamins Plus Low Iron) 1 tab PO DAILY 03/01/22 [History Last Taken Unknown] prazosin 1 mg capsule 2 mg PO QHS #60 caps 08/25/22 [Rx Last Taken Unknown] propranolol 10 mg tablet 10 mg PO TID PRN akathisia 30 days #90 tabs 08/25/22 [Rx Last Taken Unknown] metoclopramide HCl 10 mg tablet 10 mg PO 4X/DAY PRN Headache #20 tabs 09/09/22 [Rx Last Taken Unknown] Allergy/AdvReac Type Severity Reaction Status Date / Time COVID-19 vaccine, mRNA, Allergy Severe Anaphylaxis Verified 09/09/22 15:46 [id number], prochlorperazine maleate Allergy Severe Anaphylaxis Verified 09/09/22 15:46 [From Compazine] bee venom protein (honey bee) Allergy Anaphylaxis Verified 09/09/22 15:46 omalizumab [From Xolair] Allergy Anaphylaxis Verified 09/09/22 15:46 prochlorperazine edisylate Allergy Swelling Verified 09/09/22 15:46 [From Compazine] Family History Brother Asthma Mother Hypertension Heart disease Father Depression Heart disease Hyperlipidemia Hypertension Surgical History Hx of colonoscopy Hx of dilation and curettage Social History household members: family current occupational status: unemployed pets and animals: Yes Smoking Status: Never smoker second hand exposure: No alcohol intake: never substance use type: does not use seatbelt use: always do you feel safe at home: Yes additional social history: trans male, - Humza ROS ROS ED Constitutional Constitutional ED: Denies chills or fever(s) Eyes Eyes: Denies blurry vision or change in vision ENT ENT ED: Denies rhinorrhea or sore throat Cardiovascular Cardiovascular: Denies chest pain or palpitations Respiratory/Chest Respiratory/Chest: Denies cough or dyspnea Gastrointestinal Gastrointestinal: Reports nausea and vomiting Genitourinary Genitourinary ED: Denies dysuria or hematuria Musculoskeletal Musculoskeletal: Reports neck pain; Denies back pain Integumentary Denies abscess or rash Neurologic Neurologic: Denies headache(s) or weakness Allergic/Immunologic Allergic/Immunologic ED: Denies mouth swelling or urticaria EXAM Physical Exam Const Vital Signs: 09/09/22 15:43 Temperature 97.7 F L Temperature Source Temporal Pulse Rate 81 Respiratory Rate 19 H Blood Pressure 110/74 Blood Pressure Mean 86 Pulse Ox 100 Oxygen Delivery Method Room Air Positive well nourished and well developed General Appearance ED: well developed HEENT Reports moist mucous membranes Neck supple and no JVD Resp normal respiratory effort and clear to auscultation bilaterally Cardio regular rate, regular rhythm and no murmurs GI normal to inspection, nondistended, normoactive bowel sounds and non-tender Palpation: soft Extremity normal to inspection General Extremety ED: Negative for edema or tenderness General Extremity: Negative for edema Neuro oriented x3, CN's II-XII intact bilaterally and no sensory deficits noted Sensorium / Orientation: alert Motor Exam: strength 5/5 throughout Psych mental status grossly normal Skin no rashes or lesions noted MDM MDM MDM Narrative Medical decision making narrative: Patient was advised that this is most likely from hyperemesis gravidarum. Patient has had improvement with Reglan in the past. Patient is on oral Zofran at home which has not been helping. Because of this, patient will be given IV fluids and Reglan. Treatment and Re-Evaluation :: Patient was feeling better after IV fluids and Reglan. Patient was given a prescription for Reglan to take at home. Patient was instructed to start with liquids and advance her diet as tolerated. Patient was instructed to follow-up with her [facility] in 3 to 5 days. Patient understood and was agreeable with the plan. All questions were answered. Discharge Plan Triage Chief Complaint: Nausea/Vomiting ED Provider: Layton Higgins Dx/Rx/DC Orders Clinical Impression: Nausea and vomiting, Instructions: ED Vomiting (Adult) Prescriptions: New metoclopramide HCl [metoclopramide HCl] 10 mg tablet 10 mg PO 4X/DAY PRN (Reason: Headache) Qty: 20 0RF No Action fexofenadine 180 mg tablet 180 mg PO DAILY ipratropium bromide 21 mcg (0.03 %) spray,non-aerosol 2 spray intranasal BID Rx Instructions: administer into each nostril pyridoxine (vitamin B6) 500 mg tablet 500 mg PO DAILY Vitamin Plus Low Iron 27 mg iron- 1 mg tablet 1 tab PO DAILY prazosin 1 mg capsule 2 mg PO QHS Qty: 60 2RF propranolol 10 mg tablet 10 mg PO TID PRN (Reason: akathisia) 30 Days Qty: 90 1RF epinephrine 0.3 MG syringe 0.3 mg IM DAILY PRN (Reason: Allergies) albuterol sulfate 1 INHALER inhaler 1 puff inhalation Q4H PRN PRN (Reason: Asthma) pantoprazole 40 mg tablet,delayed release (DR/EC) 40 mg PO BID fluticasone propion-salmeterol [Advair Diskus] 250-50 mcg/dose blister with device 1 inh inhalation BID Spiriva Respimat 1.25 mcg/actuation mist 2 puff inhalation DAILY ferrous sulfate 325 mg (65 mg iron) Tablet 325 mg PO BID Primary Care Provider: Evelio Hernandez Referrals: Evelio Hernandez DO [Primary Care Provider] - 5-7 Days Venus Taylor CNM [Med Staff - Adv Practice Prof] - 3-5 Days Disposition Disposition: Home, Self Care
[2022-09-09] MEDS: Metoclopramide 10 MG/2 ML Vial IV (17:36)
[2022-09-09] MEDS: 0.9% Normal Saline 1,000 ML 1000 ML IV (17:36)
--- NOTE | 2022-09-12 10:05 | BH.SGPN.GN ---
Behaviors/Verbalizations/Mental Status: []Pt alert and oriented, casually dressed and groomed. Eye contact good. Motor activity appropriate. Speech within normal limits. Affect constricted, mood anxious and irritable. Thoughts linear, logical, no signs of hallucinations or delusions. Client Response/Progress/Benefit: []Pt was an active participant AEB contribution to discussion, taking notes, and willingness to engage in group activity. Connected with the topic of pitfalls and listened to group discussion on internal and external barriers that prevent from choosing a healthier path to mental wellness. Group worked together to identify examples of personal internal pitfalls and pt identified hers as struggling with change and communicating her needs effectively with supports. Pt benefited from group as Pt learned to better identify and normalize potential barriers to improving mental health symptoms. Pt will continue IOP tx to prevent decompensation, increase mood management skills, and continue to encourage healthy communication with supports. Narrative Note: []
[2022-09-12 19:07] LABS: Chlamydia By Nucleic Acid AMP Negative (Negative); Gonococcus By Nucleic Acid AMP Negative (Negative)
== END 2022-09-09 19:50 | disposition home or self-care (01) ==
PROVIDERS: Registered Nurse; Emergency Provider Emergency Medicine; PCP Student in an Organized Health Care Education/Training Program; Referring Provider Emergency Medicine; Visit Provider Emergency Medicine
DX: O21.9 Vomiting of pregnancy, unspecified (principal); Z3A.01 Less than 8 weeks gestation of pregnancy; O99.511 Diseases of the respiratory system complicating pregnancy, first trimester; J45.909 Unspecified asthma, uncomplicated; Z79.899 Other long term (current) drug therapy; O99.611 Diseases of the digestive system complicating pregnancy, first trimester; K21.9 Gastro-esophageal reflux disease without esophagitis; Z79.51 Long term (current) use of inhaled steroids
CPT/HCPCS: 87086; 87088; 87491; 87591; 96361; 96374; 99283; J7030; A4216

== ENCOUNTER 2022-09-13 14:05 | Outpatient (CLI) | payer MEDICAID, SELFPAY ==
[2022-09-13 14:40] VITALS: BP 109/70; PULSE 83; RESP 16; O2SAT 99
[2022-09-13] MEDS: Dextrose 5%-Lactated Ringers 1,000 ML 999 ML IV (15:10)
[2022-09-13] MEDS: Ondansetron 4 MG/2 ML Vial IV (15:19)
[2022-09-13] MEDS: 0.9% NaCl Peripheral Flush Adult/Peds IV (15:19)
[2022-09-13 16:13] VITALS: BP 116/64; PULSE 81; RESP 14; TEMP 36.6; O2SAT 100
--- NOTE | 2022-09-16 09:02 | BH.SGPN.GN ---
Behaviors/Verbalizations/Mental Status: []Eye contact fair to good. Motor activity appropriate. Speech within normal limits. Affect constricted, mood anxious and dysthymic. Thoughts linear, logical, no signs of hallucinations or delusions. Reviewed client?s symptom tracker, risk for suicidal ideation within pt baseline, denies plan, or intent as of 09/16/2022. Client Response/Progress/Benefit: []Client responded well to session, attentive and willing to process with group. Identified current mental health wins as reaching out for help and setting up home health services for herself despite hx of difficulties asking for help when she needs it. Additional win noted as going to an interview and receiving a conditional job offer as a result. Current stressor noted as finances and feelings of being a failure due to financial struggles. Able to identify small steps she can use to improve ability to manage her anxiety related to this. Appeared to benefit from group support and encouragement. Client gave positive feedback to other group members as they shared. Recommended continued IOP tx to continue to increase overall functioning, improve engagement in healthy self-care and communication with supports, and prevent decompensation. Narrative Note: []
== END 2022-09-13 14:06 | disposition home or self-care (01) ==
LOC: MEDOUTP 14:06
PROVIDERS: PCP Student in an Organized Health Care Education/Training Program; Referring Provider Nurse Practitioner Women's Health; Visit Provider Nurse Practitioner Women's Health
DX: E86.0 Dehydration (principal)
CPT/HCPCS: 96361; 96374; A4216; J2405

== ENCOUNTER 2022-09-16 20:12 | Emergency (ER) | payer MEDICAID, SELFPAY ==
[2022-09-16 20:13] VITALS: BP 122/70; PULSE 88; RESP 16; TEMP 36.2; O2SAT 100; BMI 28.3
--- NOTE | 2022-09-16 21:02 | EX.ED.DYSGE1 ---
HPI <Zafar Colunga MD - Last Filed: 09/17/22 22:14> History of Present Illness Chief Complaint: Nausea/Vomiting Narrative Narrative: 27-year-old female, with 1 stillbirth born at 22 weeks presents with nausea and vomiting and for IV hydration. She states that she has problems with hyperemesis and has a Zofran pump. 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 The home health nurse had problems starting her IV for hydration. She has had nausea and vomiting and receives IV fluids almost every 3 to 4 days. She states she has been to the emergency department previously and 3 days ago was at the infusion center getting IV fluids. She denies any vaginal bleeding or cramping. She had ketones in her urine, she mainly presents for IV fluid hydration. [facility] <Zafar Colunga MD - Last Filed: 09/17/22 22:14> [facility] Medical History Allergic rhinitis Anxiety Asthma Bipolar 1 disorder, mixed, severe Borderline personality disorder Chronic cough Daytime hypersomnia Depression Darqyzdmxz-[id number]-sdxchfljs (DTP) vaccination Gastric reflux Generalized anxiety disorder History of IBS History of steroid therapy IBS (irritable bowel syndrome) Low-lying placenta in second trimester Non-smoker Pelvic pain Posterior auricular lymphadenopathy PTSD (post-traumatic stress disorder) Suicide attempt Vaginal delivery Vestibular migraine Wears contact lenses Wears glasses Home Medications albuterol sulfate 90 mcg/actuation aerosol inhaler 1 puff inhalation Q4H PRN PRN Asthma 08/17/17 [History Last Taken 08/11/17] epinephrine 0.3 mg/0.3 mL injection, auto-injector 0.3 mg IM DAILY PRN Allergies 08/17/17 [History Last Taken Unknown] fexofenadine 180 mg tablet 180 mg PO DAILY Check with primary doctor 06/25/19 [History Last Taken Unknown] pantoprazole 40 mg tablet,delayed release 40 mg PO BID Check with primary doctor 02/08/21 [History Last Taken 02/15/21 07:00] ipratropium bromide 21 mcg (0.03 %) nasal spray 2 spray intranasal BID Check with primary doctor 03/11/21 [History Last Taken Unknown] pyridoxine (vitamin B6) 500 mg tablet 500 mg PO DAILY Check with primary doctor 04/05/21 [History Last Taken Unknown] fluticasone 250 mcg-salmeterol 50 mcg/dose blistr powdr for inhalation (Advair Diskus) 1 inh inhalation BID Check with primary doctor 08/03/21 [History Last Taken Unknown] tiotropium bromide 1.25 mcg/actuation mist for inhalation (Spiriva Respimat) 2 puff inhalation DAILY ASTHMA 08/03/21 [History Last Taken Unknown] ferrous sulfate 325 mg (65 mg iron) tablet 325 mg PO BID 02/23/22 [History Last Taken Unknown] vitamin with calcium no.72-iron 27 mg-folic acid 1 mg tablet ( Vitamins Plus Low Iron) 1 tab PO DAILY 03/01/22 [History Last Taken Unknown] prazosin 1 mg capsule 2 mg PO QHS #60 caps 08/25/22 [Rx Last Taken Unknown] propranolol 10 mg tablet 10 mg PO TID PRN akathisia 30 days #90 tabs 08/25/22 [Rx Last Taken Unknown] metoclopramide HCl 10 mg tablet 10 mg PO 4X/DAY PRN Headache #20 tabs 09/09/22 [Rx Last Taken Unknown] Allergy/AdvReac Type Severity Reaction Status Date / Time COVID-19 vaccine, mRNA, Allergy Severe Anaphylaxis Verified 09/16/22 20:14 [id number], prochlorperazine maleate Allergy Severe Anaphylaxis Verified 09/16/22 20:14 [From Compazine] bee venom protein (honey bee) Allergy Anaphylaxis Verified 09/16/22 20:14 omalizumab [From Xolair] Allergy Anaphylaxis Verified 09/16/22 20:14 prochlorperazine edisylate Allergy Swelling Verified 09/16/22 20:14 [From Compazine] Family History Brother Asthma Mother Hypertension Heart disease Father Depression Heart disease Hyperlipidemia Hypertension Surgical History Hx of colonoscopy Hx of dilation and curettage Social History household members: family current occupational status: unemployed pets and animals: Yes Smoking Status: Never smoker second hand exposure: No alcohol intake: never substance use type: does not use seatbelt use: always do you feel safe at home: Yes additional social history: trans male, - Humza REESE <Zafar Colunga MD - Last Filed: 09/17/22 22:14> ROS ED ROS Narrative Constitutional: No fever, no chills. HEENT: No sore throat. No neck pain. No loss of vision. No rhinorrhea. Cardiovascular: No chest pain. No palpitations. No pedal edema. Respiratory: No cough, no shortness of breath. Abdominal: No abdominal pain. Positive nausea and vomiting with Hyperstat emesis gravidarum Genitourinary: No dysuria. No hematuria. No vaginal bleeding or pelvic pain. Musculoskeletal: No myalgias. No arthralgias. Neurologic: No headaches. No dizziness. No lightheadedness. Skin: No rash. No change in color. Psychiatric: No depression. No anxiety. EXAM <Zafar Colunga MD - Last Filed: 09/17/22 22:14> Physical Exam Narrative Exam Narrative: Afebrile. Vital signs noted. HEENT: Normocephalic. Atraumatic. PERRL, EOMI. Neck soft and supple. No point tenderness or step off. Cardiovascular: Regular rate and rhythm. No murmurs, rubs, or gallops appreciated. Respiratory: No tachypnea. Lungs clear to auscultation bilaterally. Gastrointestinal: Abdomen soft, nontender, with normoactive bowel sounds. No rebound or guarding. Neurological: Awake. Alert. Nonfocal, nonlateralizing. Skin: No rash. Normal color. No pallor. Musculoskeletal: No pedal edema. Full range of motion extremities. Const Vital Signs: 09/16/22 20:13 Temperature 97.1 F L Temperature Source Temporal Pulse Rate 88 Respiratory Rate 16 Blood Pressure 122/70 H Blood Pressure Mean 87 Pulse Ox 100 <Dr. Julio Will DO - Last Filed: 09/16/22 23:02> Physical Exam Const Vital Signs: 09/16/22 20:13 Temperature 97.1 F L Temperature Source Temporal Pulse Rate 88 Respiratory Rate 16 Blood Pressure 122/70 H Blood Pressure Mean 87 Pulse Ox 100 [facility] <Zafar Colunga MD - Last Filed: 09/17/22 22:14> [facility] Narrative Medical decision making narrative: With reported ketones in her urine, IV access was obtained and she was started on a bolus of normal saline. She is not currently tachycardic. I reviewed her prior records. She was seen here approximately 7 days ago on the ninth where she received Reglan and IV fluids. Given that she has problems with hyperemesis during this and previous pregnancies, I will discuss patient with Dr. Guzman on for [facility]. I do feel she can most likely just be hydrated then discharged to follow-up. Upon repeat examination when her fluids were intermediate down at approximately 2145, she states she was nauseated. She usually only uses Reglan when she is in the hospital. She will be given 5 mg of Reglan intravenously. She will be signed out to the oncoming physician to recheck her status and make sure that she is not suffering from hyperemesis with continued vomiting. <Dr. Julio Will, DO - Last Filed: 09/16/22 23:02> [facility] Narrative Medical decision making narrative: With reported ketones in her urine, IV access was obtained and she was started on a bolus of normal saline. She is not currently tachycardic. I reviewed her prior records. She was seen here approximately 7 days ago on the ninth where she received Reglan and IV fluids. Given that she has problems with hyperemesis during this and previous pregnancies, I will discuss patient with Dr. Guzman on for [facility]. I do feel she can most likely just be hydrated then discharged to follow-up. Upon repeat examination when her fluids were intermediate down at approximately 2145, she states she was nauseated. She usually only uses Reglan when she is in the hospital. She will be given 5 mg of Reglan intravenously. She will be signed out to the oncoming physician to recheck her status and make sure that she is not suffering from hyperemesis with continued vomiting. Dr. Will dictating. Patient signed out to me for monitoring and reassessment of her nausea and vomiting. She is reevaluated at 11:02 PM and she feels much better. Her fluids are still infusing and she has 500 cc still left. Discussed with Dr. Guzman to obtain close follow-up with her. She will be discharged home in stable condition. She has Reglan at home as well as her Zofran pump. Discharge Plan Triage Chief Complaint: Nausea/Vomiting ED Provider: Zafar Colunga Dx/Rx/DC Orders Clinical Impression: Hyperemesis gravidarum, First trimester Prescriptions: No Action fexofenadine 180 mg tablet 180 mg PO DAILY ipratropium bromide 21 mcg (0.03 %) spray,non-aerosol 2 spray intranasal BID Rx Instructions: administer into each nostril pyridoxine (vitamin B6) 500 mg tablet 500 mg PO DAILY Vitamin Plus Low Iron 27 mg iron- 1 mg tablet 1 tab PO DAILY prazosin 1 mg capsule 2 mg PO QHS Qty: 60 2RF propranolol 10 mg tablet 10 mg PO TID PRN (Reason: akathisia) 30 Days Qty: 90 1RF epinephrine 0.3 MG syringe 0.3 mg IM DAILY PRN (Reason: Allergies) albuterol sulfate 1 INHALER inhaler 1 puff inhalation Q4H PRN PRN (Reason: Asthma) pantoprazole 40 mg tablet,delayed release (DR/EC) 40 mg PO BID fluticasone propion-salmeterol [Advair Diskus] 250-50 mcg/dose blister with device 1 inh inhalation BID Spiriva Respimat 1.25 mcg/actuation mist 2 puff inhalation DAILY ferrous sulfate 325 mg (65 mg iron) Tablet 325 mg PO BID metoclopramide HCl [metoclopramide HCl] 10 mg tablet 10 mg PO 4X/DAY PRN (Reason: Headache) Qty: 20 0RF Primary Care Provider: Evelio Heranndez Referrals: Evelio Hernandez DO [Primary Care Provider] - Venus Taylor CNM [Med Staff - [facility]] - 3-5 Days Disposition Disposition: Home, Self Care Discharge Date/Time: 09/16/22 23:42
[2022-09-16] MEDS: Metoclopramide 10 MG/2 ML Vial 5 MG IV (22:11)
== END 2022-09-16 23:42 | disposition home or self-care (01) ==
PROVIDERS: Emergency Provider Emergency Medicine; PCP Student in an Organized Health Care Education/Training Program; Visit Provider Emergency Medicine
DX: O21.0 Mild hyperemesis gravidarum (principal); Z3A.00 Weeks of gestation of pregnancy not specified; O99.511 Diseases of the respiratory system complicating pregnancy, first trimester; J45.909 Unspecified asthma, uncomplicated; O99.611 Diseases of the digestive system complicating pregnancy, first trimester; K21.9 Gastro-esophageal reflux disease without esophagitis; Z79.899 Other long term (current) drug therapy; Z79.51 Long term (current) use of inhaled steroids
CPT/HCPCS: 96374; 99283; J7030

== ENCOUNTER → 2022-09-22 | Outpatient (CLI) | payer MEDICAID, SELFPAY ==
[2022-09-22 17:10] LABS: Absolute Neutrophil Count 6.1 X10^3/uL (2.0-7.7); Basophil# 0.04 X10^3/uL; Basophil% 0.4 % (0-1); Eosinophil# 0.07 X10^3/uL; Eosinophils% 0.8 % (0-5); Hematocrit 40.7 % (37-47); Hemoglobin 13.5 g/dL (12.0-15.0); Lymphocyte % 24.7 % (19-41); Mean Corp Hgb Conc 33.2 g/dL (32-36); Mean Corpuscular Hgb 32.1 pg (27.0-32.0); Mean Corpuscular Volume 96.7 fL (81-99); Mean Platelet Vol. 11.1 fl (6.2-12.0); Monocyte% 8.6 % (0-10); NRBC Flagged by Analyzer 0 % (0-5); Neutrophil # 6.05 X10^3/uL (2.7-7.7); Platelet Count 264 K/mm3 (150-450); RBC Distribution Width CV 11.9 % (11.6-14.6); RBC Distribution Width SD 42.1 fl (35.1-43.9); Red Blood Count 4.21 M/mm3 (4.2-5.4); White Blood Count 9.3 K/mm3 (4.4-11.0)
[2022-09-22 17:34] LABS: ALB/GLOB Ratio 0.8 RATIO (0.9-2.4); AST(SGOT) 15 U/L (15-37); Alanine Aminotransfer ALT/SGPT 19 U/L (13-56); Albumin, Serum 3.3 g/dL (3.2-5.0); Alkaline Phosphatase 77 U/L (45-117); Anion Gap 5 (5-15); BUN 7 mg/dL (7-18); BUN/Creat Ratio 10.4 RATIO (10-20); Calcium,Total 9.3 mg/dL (8.5-10.1); Chloride 104 mmol/L (98-107); Creatinine, Serum 0.67 mg/dL (0.55-1.02); EST Glomerular Filtration Rate 111 mL/min (>60); Est Glom Filt Rate - Afr Amer 135 mL/min (>60); Glucose 83 mg/dL (74-106); Potassium 3.8 mmol/L (3.5-5.1); Protein, Total 7.3 g/dL (6.4-8.2); Sodium Level 137 mmol/L (136-145)
[2022-09-22 19:22] LABS: HIV - WCH Non-Reactive (Nonreactive); Hepatitis B Surface Antigen Non-Reactive (Nonreactive); Hepatitis C Antibody Non-Reactive (Nonreactive); Rubella IgG Reactive (Nonreactive); Syphilis Antibodies Non-reactive
== END | disposition home or self-care (01) ==
LOC: LAB 16:37
PROVIDERS: Registered Nurse; PCP Student in an Organized Health Care Education/Training Program; Visit Provider Obstetrics & Gynecology
DX: Z34.90 Encounter for supervision of normal pregnancy, unspecified, unspecified trimester (principal)
CPT/HCPCS: 36415; 80053; 85025; 86703; 86762; 86780; 86803; 86850; 86900; 86901; 87340

== ENCOUNTER 2022-10-03 07:14 | Outpatient (RCR) | payer MEDICAID, SELFPAY ==
[2022-10-01 01:28] VITALS: BP 130/96; PULSE 62
--- NOTE | 2022-10-03 09:00 | BH.SGPN.GN ---
Behaviors/Verbalizations/Mental Status: [] Eye contact is good. Motor activity is appropriate. Appearance is casual. Speech is Appropriate. Mood is anxious. Affect is congruent. Thoughts are linear and logical. No evidence of psychosis. Reviewed daily check in sheet and pt reports 3/10 for suicidal thoughts. This is close to baseline for patient. Client Response/Progress/Benefit: [] Pt was an active participant in group discussion. Attentive. Daily symptom tracker notes 3/5 for depression, anxiety, and irritability. Emotion for today is slightly hopeful. Mental health win is I worked all weekend. Pt started and has maintained employment. Other win is that she reports to be managing changes in her routine and setting boundaries. She asked for feedback from the group regarding attending a holiday family event tomorrow. States that only reason I would go I because I'm so lonely. According to pt her family is unhealthy, toxic, and typically are triggers to worsening mental health. Pt spent considerable amount of time in foster care and residential treatment as a child due to in large part to unhealthy family dynamics. Group was supportive, empathized with the pull to make unhealthy decisions based on feelings of loneliness, and provided feedback which was beneficial. Slight progress noted per pt report. Increased feelings of loneliness. Will continue in IOP to maintain safety, stabilize mood, and prevent decompensation/re-admission. Narrative Note: []
--- NOTE | 2022-10-03 10:10 | BH.SGPN.GN ---
Behaviors/Verbalizations/Mental Status: [] Eye contact is good. Motor activity is appropriate. Appearance is casual. Speech is Appropriate. Mood is anxious. Affect is congruent. Thoughts are linear and logical. No evidence of psychosis. Client Response/Progress/Benefit: [] Pt did not participate in group discussions however was attentive. Participated in and was engaged during experiential activity. Attentive during interactive discussion on what failure means to the group in which peers identified that failure is ... not meeting expectations, not having a desired outcome, and not succeeding in a task. Group was able to identify how fear of failure can lead to inaction, complacency, pushing people away, poor self-care, and self-sabotage. Attentive during interactive discussion on the role that FOF plays in mental wellness, depression, anxiety, and growth. Able to connect the experiential activity to FOF. Benefited from increased awareness of how the role that FOF plays in mental health and decision-making. Will continue in IOP to increase consistent use of healthy coping, build confidence, and prevent decompensation.
--- NOTE | 2022-10-03 11:15 | BH.SGPN.GN ---
Behaviors/Verbalizations/Mental Status: []Pt alert and oriented, neatly dressed and groomed. Eye contact good. Motor activity appropriate. Speech within normal limits. Affect congruent, mood anxious Thoughts linear, logical, no signs of hallucinations or delusions. Client Response/Progress/Benefit: [] Pt responded well to session, engaged in the experiential activity and attentive throughout group processing. Pt reported fear of failure has kept Pt from jobs, setting boundaries, setting goals, and reaching out for help. Pt completed fear of failure worksheet and was able to identify thoughts and behaviors that reinforce personal fear of failure including all or nothing thinking, self-sabotage, and fear of judgement. Pt participated in group discussion regarding strategies to overcome fear of failure. Identified wanting to work on practicing self-care more consistently by scheduling time for it. Appeared to benefit from increased knowledge of strategies to combat fear of failure and gaining self-awareness. Pt will continue IOP tx and discharge on 10/07/22. Pt can benefit from reinforcing healthy coping skills and establishing aftercare. Narrative Note: []
--- NOTE | 2022-10-05 09:03 | BH.SGPN.GN ---
Behaviors/Verbalizations/Mental Status: [] Eye contact good. Motor activity appropriate. Speech within normal limits. Affect congruent, mood anxious and dysthymic. Thoughts linear, logical, no signs of hallucinations or delusions. Reviewed client?s symptom tracker, reported suicidal ideation within pt baseline, denies plan, or intent as of 10/05/2022. Client Response/Progress/Benefit: [] Client receptive of session, attentive and willing to process with group. Identified mental health ?wins? as challenging feelings of guilt and following through with a boundary of not attending her family?s 04 of October gathering. Additional win noted as recognizing and successfully challenging negative self-talk and self-criticism. Reports feeling encouraged by her ability to do so but is worried about continuing to utilize these skills and make consistent progress following IOP d/c on Monday. Did well to challenge these thoughts and identify skills to aid in maintaining gains made. Client appeared to benefit from group support and encouragement. Recommended continued IOP tx to continue to maintain gains and mood stability, as well as continue to provide emotional support. Narrative Note: []
--- NOTE | 2022-10-05 11:05 | BH.SGPN.GN ---
Behaviors/Verbalizations/Mental Status: [] Client alert and oriented, neatly dressed and groomed. Eye contact fair to good. Motor activity appropriate. Speech within normal limits. Affect constricted, mood euthymic. Thoughts linear, logical, no signs of hallucinations or delusions. Client Response/Progress/Benefit: [] Client responded well to session AEB taking notes and providing input and examples throughout. Group discussed the different categories of coping skills which included distraction, emotional release, grounding, self-love, and thought challenging. Client created a coping skill menu identifying various skills to try in each category. Client?s coping skill menu included: video games, therapy, taking long bath, and utilizing an accomplishment log. Appeared to benefit from increasing repertoire of healthy coping skills. Client will continue IOP tx to improve daily functioning, reduce thought patterns that lead to anxiety and increase emotional regulation skills application. Narrative Note: []
--- NOTE | 2022-10-05 12:46 | PCM.BH.PN_ITS ---
Progress Note Progress Note: And history of Present Illness/Interim History: The patient is a 27-year-old female with a history of bipolar disorder, borderline personality disorder, anxiety and PTSD who is seen in follow-up at the [facility] behavioral health IOP. I last saw the patient 2 weeks ago and at that time she was started on Seroquel 50 mg and was to increase to 100 mg after few days. The patient is tolerating the 50 mg dose of Seroquel but never increased to 100 mg as directed. She feels her mood is better but it still fluctuates often. She is overall still depressed and lonely. She is 10 weeks now and is excited about the baby but also little bit nervous. Boyfriend is still around and okay with the baby 2. Her sleep is improved and its about 8 or 9 hours a night now. She is on Reglan as needed only and only needs this once every 3 ED days about now. She her hyperemesis has resolved and she is not vomiting anymore since 2 weeks ago. She has no history of self-harm in the past 2 weeks. 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 She denies any passive thoughts of . She has occasional passive, fleeting suicidal ideation but states she would never do it because of her living children and her . She remains from her but is still has with her boyfriend of about 3 months. Current Psychiatric Medications: [] Seroquel 50 mg p.o. nightly (x2 weeks); prazosin 2 mg p.o. nightly. Reglan p.o. as needed for nausea but rarely uses it now. Mental Status Examination: [] The patient is a 27-year-old female who appears normal for stated age and is casually dressed and groomed with good hygiene. She has no psychomotor agitation or retardation and is ambulatory with a normal gait. Eye contact is good and speech is normal rate and rhythm and fluent with no pressure. Mood is mildly depressed. Affect is full and normal. Thought process is goal-directed and organized. Thought content: There is evidence of occasional passive, fleeting suicidal ideation but there is no evidence of passive thoughts of , active suicidal ideation, plan for suicide, hallucinations or delusions. Reality testing is intact. Judgment is intact but somewhat limited. Insight is limited. Impulsivity is moderate. Diagnoses: [] 1. Borderline personality disorder 2. Bipolar 1 disorder, most recent episode mixed, severe without psychosis (resolving, F31.62) 3. Generalized anxiety disorder 4. PTSD 5. Primary support and financial issues 6. 10-week intrauterine Plan: [] The patient will continue the IOP program at [facility] as the structure, support, education and group therapy will hopefully prevent worsening of the patient's symptoms which could require hospitalization. She felt safe during the interview and if it anytime she does not feel safe s he will let us know or go to the emergency room. The patient agrees to increase her Seroquel to 100 mg p.o. nightly for 1 week and then increase to 150 mg p.o. nightly the next week. I will see the patient in follow-up in 2 weeks and she will continue to follow-up with her outpatient providers. She felt safe during the interview and if it anytime she does not feel safe she will let us know or g o to the emergency room. The risks of Seroquel were discussed with the patient again and the side effects and the risk in and the patient agrees that the benefits of it outweigh the risks in this situation.
--- NOTE | 2022-10-05 15:31 | BH.MDN ---
Multi-Disciplinary Note Note 45-min Individual: Time Started:: 10:28 Date: 10/05/22 Purpose of session/treatment goals addressed:: To address current stressors and discuss strategies to help cope with these stressors. Another goal was to discuss discharge and aftercare. Eye Contact:: Good Motor Activity:: Appropriate and Restless Appearance:: Casual Speech:: Appropriate Mood:: Anxious Affect:: Congruent Thoughts:: Linear, Logical and Racing Staff Interventions:: thought challenging, discharge planning, strengths perspective and other (reviewed coping skills and discharge plan) Client Response:: Pt responded well to session, open to meeting with therapist. Pt was tearful throughout session as she discussed recent stressor of pt?s estranged family having a 04 of October gathering. Pt shared that she struggled with the decision of whether of not to attend as she has a complicated hx with her family and is often triggered when spending time with them. Shared feeling guilty however as she did not want to deprive her kids from going if they wanted to. Ultimately made the decision to allow her children to attend with pt?s grandparents and opt to stay home herself. 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 Did well to identify that she may have been placing unrealistic expectations on herself and shared she continues to struggled at times with the core belief that she has to be doing everything perfectly or she?s a failure. Did well to work with therapist to challenge this and identify strategies to continue to challenge these thoughts and prevent self-sabotaging behaviors following IOP d/c on 10/07/22. Pt went on to discuss that although she did not follow through with her plan to end her relationship as pt shared last week, she was able to establish firmer boundaries and follow through with reinforcing these when tested. Pt also shared that work went much better than expected which has helped pt stay positive. Pt and therapist reviewed her overall progress in tx as well as discussed her aftercare plan. Pt will begin IOP aftercare group on 10/13 and has appointments scheduled with her regular outpatient providers as well. Risks/Concerns:: No report of suicidal ideations, plan or intent as of this date, 10/05/22 Progress Toward Goals/Plan:: Despite ongoing stressors, pt has made significant progress in IOP. Pt?s overall symptom reduction is 50% since admission with anger decreasing by 25%, glen sx decreasing by 100%, and anxiety decreasing by 44%. Pt has increased self-confidence in her ability to manage stressors, emotions, and conflict. Pt can continue to benefit from weekly counseling to process relationship stressors, past trauma, and work stress. Pt will discharge from [facility] tx 10/07/22. She is scheduled to begin [facility] Aftercare program on 10/13/22 and has her next individual counseling appointment at [facility] scheduled for 10/24/22. Connected with Dr. Vargas for outpatient medication management as well. Time Stopped:: 11:10
--- NOTE | 2022-10-07 08:16 | BH.DS ---
Discharge Summary Demographics Date of Admission:: 08/01/22 Discharge Date: 10/07/22 Presenting Problems at Admission:: The patient is a 26-year-old but female with a history of bipolar disorder, and borderline personality disorder who previously completed the IOP program from February 2022 to April 2022. The patient was referred back to the program following psychiatric hospitalization from July 20 to July 27, 2022 for an overdose of about 25 Seroquel. Reports her mood was depressed partially because of occupational stress and associated workplace drama after patient quit her job a few July 20. Pt also states that the upcoming anniversary of the loss of her stillborn child is a stressor but was not an immediate stressor as the anniversary is August 04, 2022. Since April 2022 the patient says she did okay until her work stress became severe. The patient states also that she was noncompliant with taking her medications for a lot of days when work became difficult, and she was working nights. Going off medications in the past has triggered a manic episode according to the patient. Patient states that before being admitted on July 20 she was not getting any sleep because she was not taking her Seroquel. She was getting no sleep and she was not tired the next day. In fact she was getting a lot done and thinking fast and moving fast and people noticed she was different. Her mood remains somewhat irritable but also depressed during that time. The patient last self-harmed via cutting in the hospital but no stitches were required. She denies any self-harm urges now but she states that she was cutting herself daily for 2 weeks before going inpatient on July 20, 2022. Her mood since discharge a week ago is down and somewhat irritable. She endorses anhedonia, worthlessness, guilt, decreased sleep and concentration, passive thoughts of and passive, fleeting suicidal ideation and a plan to overdose on medication. She states that her children are protective factors. She is future oriented. She has a history of trauma and has flashbacks and nightmares from this. Current mental health sx impacting ability to work or function at baseline. Discharge Diagnoses:: 1. Borderline personality disorde 2. Bipolar 1 disorder, most recent episode mixed, severe without psychosis (F31.63) 3. Generalized anxiety disorder 4. PTSD Reason for Discharge:: Pt has accomplished her tx goals AEB her reduction of DSM-5 scores and self-report of improved mood, functioning, and ability to cope with stressors. Pt will continue with outpatient counseling, medication management, and begin [facility] aftercare. Treatment Progress During Treatment & Response: Pt has responded well to treatment as evidenced by Pt consistently attending IOP sessions, reduction of DSM-5 scores since admission, and self-report. Pt was always attentive and receptive to learning during group and individual sessions. Pt actively applied coping skills outside of IOP setting and reports overall her mood is improved and she is functioning better than she was several months ago. Reports she no longer has active suicidal ideation and feels more hopeful for her future. Pt noted that she has improved in her overall ability to establish and begin maintaining healthy boundaries as well. Pt?s overall symptom reduction is 50% since admission with anger sx decreasing by 25%, depression decreasing by 14%, and anxiety decreasing by 44%. Pt reports she has increased self-confidence in her ability to manage stressors, emotions, and conflict without escalating to point of crisis. Issues Still to be Addressed:: Interpersonal effectiveness skills, negative core beliefs, trauma (past) and ongoing triggers, self-care, healthy boundaries, emotion regulation skills, and self-esteem. Discharge Recommendations/Instructions:: Pt will discharge from IOP tx today and is scheduled to begin the [facility] Aftercare Program on 10/13/22. [facility]. Will continue with regularly scheduled appointments with Dr. Vargas for medication management as well. Discharge Handout
--- NOTE | 2022-10-07 09:00 | BH.SGPN.GN ---
Behaviors/Verbalizations/Mental Status: [] Eye contact is good. Motor activity is appropriate. Appearance is casual. Speech is Appropriate. Mood is anxious. Affect is congruent. Thoughts are linear and logical. No evidence of psychosis. Reviewed daily check in sheet and no reports / for suicidal thoughts which is significant reduction since admission. Hx of long-standing passive and fleeting SI. Client Response/Progress/Benefit: [] Pt was an active participant in group discussions. Attentive. Daily symptom tracker notes 3/5 for anxiety and 2/5 for depression/irritability. Shared with the group that today is her last day in [facility] as she is successfully discharging. Overall reports feeling better. Mental health win is that she reached out to avoid isolation which was beneficial. Insight on how this decision positively impacted her mood, her day, decreased loneliness, and created purpose. Reframing and challenging negative thoughts and cognitive distortions which can impact her confidence in reaching out to others. Shared with the group that she gains a great deal from [facility] however feels that support and not feeling alone is most helpful. Emotion for today is excited. She admits that she continues to have significant stressors (, relationship issues, trauma triggers, psychosocial stressors, etc) however has increased confidence in her ability to manage these issues. Linked with psychiatry, counseling, and plans to attend [facility] aftercare program. Benefited from group support, encouragment, and feedback. Will be discharged from [facility] today. Narrative Note: []
--- NOTE | 2022-10-07 10:10 | BH.SGPN.GN ---
Behaviors/Verbalizations/Mental Status: []Client alert and oriented, casually dressed and groomed. Eye contact good. Motor activity appropriate. Speech within normal limits. Affect congruent, mood euthymic. Thoughts linear, logical, no signs of hallucinations or delusions. Client Response/Progress/Benefit: []Client receptive to session AEB providing input throughout, listening attentively to others, and taking notes. Attentive throughout psychoeducation on the cognitive triangle and maintenance cycles. Worked on identifying own vicious cycle. Engaged in group discussion reviewing the impact of daily activities and behaviors in either reinforcing unhealthy maintenance cycles and depression or assisting in reducing symptoms (?down? vs ?up? activities). Client identified common ?down? activities they engage in as: doom scrolling, sad music, staying in bed, not eating, and not sleeping. Common ?Up? activities client identified included: being in nature, upbeat music, dancing, swimming, and watching funny shows. Appeared to benefit from increased awareness of current behaviors and impact these have on mental health. Pt has made significant treatment progress and will discharge from [facility] today.
--- NOTE | 2022-10-07 11:15 | BH.SGPN.GN ---
Behaviors/Verbalizations/Mental Status: []Pt alert and oriented, neatly dressed and groomed. Eye contact good. Motor activity appropriate. Speech within normal limits. Affect congruent, mood euthymic. Thoughts linear, logical, no signs of hallucinations or delusions. Client Response/Progress/Benefit: []Pt responded well to session, attentive and engaged in activity. Group shared having patience and being willing to re-evaluate helped the group be success. Group discussed values and the benefits that knowing one's values can have on one's mental health. These included: increasing motivation, resolved cognitive dissonance, and less stress. Pt explored own values and identified physical wellbeing and family as their top two values. Pt set a goal to take 1-2 walks a week and read a book to her kids once a week to live according to values. Pt appeared to benefit from exploring values and creating a weekly goal. Pt will discharge from IOP tx as pt has made significant progress and no longer meets criteria for IOP level of care. Narrative Note: []
== END 2022-10-07 12:26 | disposition home or self-care (01) ==
LOC: BHIOP 07:14
PROVIDERS: PCP Student in an Organized Health Care Education/Training Program; Referring Provider Psychiatry & Neurology Psychiatry; Visit Provider Psychiatry & Neurology Psychiatry
DX: O99.341 Other mental disorders complicating pregnancy, first trimester (principal); F31.63 Bipolar disorder, current episode mixed, severe, without psychotic features; F41.1 Generalized anxiety disorder; O26.91 Pregnancy related conditions, unspecified, first trimester; F60.3 Borderline personality disorder; F43.10 Post-traumatic stress disorder, unspecified; Z3A.10 10 weeks gestation of pregnancy
CPT/HCPCS: H2012; H2020; S9480; 90834

== ENCOUNTER 2022-10-10 08:24 | Outpatient (CLI) | payer MEDICAID, SELFPAY ==
[2022-10-10 09:38] LABS: NATERA MAILED SPECIMEN
== END 2022-10-10 23:59 | disposition home or self-care (01) ==
LOC: LAB 08:33
PROVIDERS: PCP Student in an Organized Health Care Education/Training Program; Referring Provider Registered Nurse; Visit Provider Registered Nurse
DX: Z00.00 Encounter for general adult medical examination without abnormal findings (principal)
CPT/HCPCS: 36415

== ENCOUNTER 2022-10-13 08:00 | Outpatient (RCR) | payer MEDICAID, SELFPAY ==
--- NOTE | 2022-10-13 14:00 | BH.COMM ---
Communication Note Communication with Client Communication Note: Patient completed IOP and presents today to start relapse prevention group which meets once weekly (1.5 hours) for 8 weeks. Case discussed with Dr. Yin with plan to admit with dx of F31.41
--- NOTE | 2022-10-13 14:00 | BH.SGPN.GN ---
Behaviors/Verbalizations/Mental Status: [] Pt alert and oriented, casually dressed and groomed. Eye contact good. Motor activity appropriate. Speech within normal limits. Affect congruent, mood anxious and dysthymic. Thoughts linear, logical, no signs of hallucinations or delusions. Client Response/Progress/Benefit: []Pt receptive of session, actively engaged throughout. Reports she has not recently had an appointment for outpatient counseling, however, does have a scheduled?appointment for next week. Pt is currently taking her psychiatric medication and following up with outpatient psychiatrist. Reports use of opposite action, brown-mind, reaching out to supports to aid in continued maintenance and mood stability. Pt was attentive throughout the group discussion on the relationship between emotions and behaviors. Pt provided examples of ways her emotions have dictated her behaviors in the past and consequences of this. Shared she struggles at times with knowing how to accept and express shame. Connected with psychoeducation portion reviewing 5 aspects of appropriately managing feelings. Noted wanting to work on the Expressing Feelings aspect and identified plans to practice more assertive communication when sharing her emotions. Pt will continue with aftercare tx for ongoing support, to maintain gains, and promote continued mood stability. Narrative Note: []
--- NOTE | 2022-10-13 15:29 | BH.MTP_ITS ---
Master Treatment Plan Patient Information Program Physician:: Dr. Svitlana Yin Primary Therapist:: KELLY Montilla Psychiatric Diagnoses Psychiatric Diagnoses:: 1. Borderline personality disorde 2. Bipolar 1 disorder, most recent episode mixed, severe without psychosis (F31.63) 3. Generalized anxiety disorder 4. PTSD Diagnosis Code(s):: F31.63 Estimated LOS Estimated LOS (in weeks):: 8 Problem/Goal #1 Problem/Goal #1 Stated Goal:: Client will maintain or see a reduction in symptoms AEB client score on the DSM 5 cross-cutting measure and improve client's daily functioning. Objectives Objective #1: Stated Objective: Client will continue to consistently apply healthy coping skills to maintain progress made in IOP tx. Interventions: Through group therapy, client will review warning signs and triggers as well as healthy coping skills learned in IOP tx to successfully maintain gains while transitioning into outpatient therapy. Discharge Criteria: Client will have accomplished this goal when client's score on the DSM-5 cross-cutting measure has either maintained or reduced over an 8 week period. Target Date: 12/01/22 Review Date: 11/03/22 Objective #2: Stated Objective: Client will learn and utilize 2-3 maintenance strategies to prevent decompensation from original IOP DSM-5 scores. Interventions: Through group therapy, client will be provided with educa tion on healthy maintenance behaviors, relapse prevention techniques, and healthy coping strategies. Discharge Criteria: Client will have accomplished this goal when can report using at least 2 maintenance skills to prevent decompensation compared to original IOP DSM-5 scores Target Date: 12/01/22 Review Date: 11/03/22
--- NOTE | 2022-10-20 14:00 | BH.SGPN.GN ---
Behaviors/Verbalizations/Mental Status: []Pt alert and oriented, neatly dressed and groomed. Eye contact good. Motor activity appropriate. Speech within normal limits. Affect congruent, mood depressed. Thoughts linear, logical, no signs of hallucinations or delusions. Client Response/Progress/Benefit: []Pt responded well to session, attentive and engaged. Pt reports she has been taking her medications consistently and she met with a therapist this week. Pt has not had a psychiatrist appointment. Pt states she has been trying to challenge her negative thinking, practice yoga, and use positive affirmations. Pt reports her negative core beliefs were triggered this week, so it was helpful to challenge these thoughts with journaling. Pt receptive to discussion and reading of the Chapters of My Life handout. Pt able to connect with the chapters and stated belief she is in chapter 4 which means pt is changing old, unhelpful behaviors, but sometimes still has urges to fall back. Pt shared to keep moving forward, she wants to remind herself that stability is still progresss. Pt appeared to benefit from connecting with peers and reflecting on her application of coping skills. Pt will continue IOP aftercare to promote gains made in IOP and reinforce healthy coping skills. Narrative Note: []
--- NOTE | 2022-10-27 14:00 | BH.SGPN.GN ---
Behaviors/Verbalizations/Mental Status: []Pt alert and oriented, neatly dressed and groomed. Eye contact good. Motor activity appropriate. Speech within normal limits. Affect congruent, mood euthymic. Thoughts linear, logical, no signs of hallucinations or delusions. Client Response/Progress/Benefit: [] Pt receptive of session, engaged throughout. Pt reports she is consistent with medications but she still has not seen a therapist as pt is waiting to get scheduled. Pt reports distractions, self-compassion, and affirmations helped with recent stressors. ?Receptive of discussion on personal accountability and its importance in maintaining mental health stability. Engaged in brainstorming strategies for improving ability to hold themselves accountable. Reported wanting to work on completing an entry in her daily accomplishment log. Pt shared she is data driven, so marking this in a habit tracker will help hold pt accountable. Pt seemed to benefit from support from peers and increasing understanding of personal accountability benefits and strategies. Will continue IOP aftercare group to maintain gains and prevent decompensation. Narrative Note: []
== END 2022-10-31 23:59 ==
LOC: BHOG 08:00
PROVIDERS: PCP Student in an Organized Health Care Education/Training Program; Referring Provider Psychiatry & Neurology Psychiatry; Visit Provider Psychiatry & Neurology Psychiatry
DX: F60.3 Borderline personality disorder (principal); F31.63 Bipolar disorder, current episode mixed, severe, without psychotic features; F41.1 Generalized anxiety disorder; F43.10 Post-traumatic stress disorder, unspecified
CPT/HCPCS: 90853

== ENCOUNTER → 2022-10-21 | Outpatient (CLI) | payer MEDICAID, SELFPAY | END | disposition home or self-care (01) | LOC: LABSPEC 17:08 | PROVIDERS: PCP Student in an Organized Health Care Education/Training Program; Referring Provider Advanced Practice Midwife; Visit Provider Advanced Practice Midwife | DX: R30.0 Dysuria (principal) | CPT/HCPCS: 87086; 87088 ==

== ENCOUNTER 2022-11-01 07:13 | Outpatient (RCR) | payer MEDICAID, SELFPAY ==
--- NOTE | 2022-11-03 14:14 | BH.MTP_ITS ---
Treatment Plan Review Demographics Date of Admission:: 10/19/22 Date of Treatment Plan Review:: 11/03/22 Admitting Diagnoses:: 1. Borderline personality disorde 2. Bipolar 1 disorder, most recent episode mixed, severe without psychosis (F31.63) 3. Generalized anxiety disorder 4. PTSD Current Diagnoses:: 1. Borderline personality disorde 2. Bipolar 1 disorder, most recent episode mixed, severe without psychosis (F31.63) 3. Generalized anxiety disorder 4. PTSD Patient Status Patient's Response to Treatment:: Pt responding well to treatment AEB pt's consistent attendance, active engagement in group discussions, follow up with outpatient providers, and reporting use of skills outside treatment environment. Pt utilizes IOP aftercare to process current stressors, practice giving herself credit for daily accomplishments, continue to work on challenging negative core beliefs and unrealistic expectations of self, and identify more adaptive coping strategies. Status of Current Problems and Symptoms: Ongoing stressors include maintaining progress made in IOP, stress with , managing her emotions, and continuing to improve her boundaries and communication within interpersonal relationships. Pt self-reports she has moments of negative thinking, feeling ?overwhelmed with life?, and depression, but it is still manageable. Progress Problem #1: Problem Name:: Pt will maintain or decrease symptoms from IOP admission data. Status of Goals:: Obj 1 - complete with ongoing work encouraged- Pt has been able to maintain gains made in IOP as pt?s DSM-5 scores are 43% lower than they were at IOP admission. 14% decrease in depressive symptoms and 56% decrease in anxiety when compared to IOP admission scores. Obj 2 - complete with ongoing work encouraged. Pt has been consistently reporting self-care, thought challenging, and using healthy coping skills. She struggles at times with recognizing and challenging negative core beliefs; however, pt is continuing to make consistent strides in better challenging and replacing these thoughts. Team Recommendations:: Recommended client continue IOP aftercare group to show maintenance of progress. Will continue to encourage client to attend regul ar outpatient counseling and psychiatry appointments as well.
--- NOTE | 2022-11-10 14:00 | BH.SGPN.GN ---
Behaviors/Verbalizations/Mental Status: []Client alert and oriented, casually dressed and groomed. Eye contact fair to good. Motor activity appropriate. Speech within normal limits. Affect congruent, mood dysthymic and anxious. Thoughts linear, logical, no signs of hallucinations or delusions. Client Response/Progress/Benefit: []Receptive of session, engaged throughout. Pt reports she has remained consistent in attending outpatient counseling and psychiatry appointments, as well as maintaining medication compliance. Noted use of positive self-talk, opposite action, and taking breaks as coping skills aiding in ongoing mental health maintenance. Engaged and attentive during discussion of vulnerability and benefits of practicing vulnerability. Shared being vulnerable has not been easy for her as she struggles with uncomfortable feelings and has been taught that vulnerability is weakness. Group discussed ways we avoid feeling vulnerable and how this negatively affects mental health and relationships. Appeared to benefit from group support and discussion reflecting on the positive impact vulnerability can have on mental health. Identified plans to challenge herself to communicate her actual feelings rather than say she?s ?fine? when supports ask as a way in which she could practice being vulnerable in the next week. Pt will continue with aftercare tx to maintain gains and prevent decompensation. Narrative Note: []
== END 2022-12-01 23:59 ==
LOC: BHOG 07:13
PROVIDERS: PCP Student in an Organized Health Care Education/Training Program; Referring Provider Psychiatry & Neurology Psychiatry; Visit Provider Psychiatry & Neurology Psychiatry
DX: F60.3 Borderline personality disorder (principal); F31.63 Bipolar disorder, current episode mixed, severe, without psychotic features; F41.1 Generalized anxiety disorder; F43.10 Post-traumatic stress disorder, unspecified
CPT/HCPCS: 90853

== ENCOUNTER 2022-12-02 07:23 | Outpatient (RCR) | payer MEDICAID, SELFPAY ==
--- NOTE | 2022-12-08 14:00 | BH.SGPN.GN ---
Behaviors/Verbalizations/Mental Status: []Pt alert and oriented, casually dressed and groomed. Eye contact good. Motor activity appropriate. Speech within normal limits. Affect congruent, mood euthymic. Thoughts linear, logical, no signs of hallucinations or delusions. Client Response/Progress/Benefit: []Pt receptive of session, engaged throughout. Pt shared she met with all her outpatient providers since last session. Pt has been taking she medications consistently and she reports utilizing healthy coping skills outside of aftercare. These skills included: journaling, keeping track of her wins, and practicing self-care and combatting the guilt she feels. Receptive of discussion on sitting with the uncomfortable and emotional urges. Pt contributed to the discussion of distress tolerance and how building distress tolerance can help improve mood stability and resilience. Pt shared she wants to keep building distress tolerance by going into stores and walking out without buying anything. Pt seemed to benefit from support from peers and increasing understanding of distress tolerance. Will discharge from [facility] aftercare as pt has successfully completed the 8 week program and accomplished her tx goals. Narrative Note: []
--- NOTE | 2022-12-08 14:31 | BH.DS_ITS ---
Discharge Summary Demographics Date of Admission:: 10/13/22 Discharge Date: 12/08/22 Presenting Problems at Admission:: Client discharged from [facility] tx and transitioned to [facility] aftercare to maintain gains client made in [facility] and to reinforce healthy coping skills. At admission to [facility] aftercare, client reported experiencing mild to moderate symptoms of anxiety, depression, and guilt. Client was reporting ongoing issues with prioritizing self-care, managing her anxiety related to her current , navigating interpersonal relationships, and consistently managing daily stressors. Ongoing difficulties in maintaining consistent with emotion regulation skills, self-compassion, as well as challenging distorted thought patterns. Discharge Diagnoses:: 1. Borderline personality disorder 2. Bipolar 1 disorder, most recent episode mixed, severe without psychosis (F31.63) 3. Generalized anxiety disorder 4. PTSD Reason for Discharge:: Pt has completed the aftercare program and has met the maximum benefit of aftercare tx. Pt will continue with outpatient counseling and psychiatry for ongoing maintenance. Treatment Progress During Treatment & Response: Pt did well with attendance and remained active in engagement. Pt contributed well during group discussions, often providing insight and supportive feedback. Pt was able to see a reduction of overall sx from [facility] admission to aftercare discharge of 45%, with a 25% reduction in Self-harming thoughts, 50% reduction in irritability, 29% reduction in depression, and 33% reduction in sx of anxiety. Pt reports improved ability to manage daily stressors, communicate with supports, and challenge distorted thought patterns. Issues Still to be Addressed:: Distorted thoughts and ongoing issues with emotion regulation, negative self-talk, avoidance, ruminations, difficulty setting boundaries and communicating needs when feeling overwhelmed. Discharge Recommendations/Instructions:: Pt will discharge from [facility] tx today and is scheduled to begin the [facility] Aftercare Program on 10/13/22. Next appointment with outpatient counselor, Raffi varela [facility], scheduled for 10/27/22. Will continue with regularly scheduled appointments with Dr. Vagras for medication management as well. Discharge Handout
== END 2022-12-09 06:30 | disposition home or self-care (01) ==
LOC: BHOG 07:23
PROVIDERS: PCP Student in an Organized Health Care Education/Training Program; Referring Provider Psychiatry & Neurology Psychiatry; Visit Provider Psychiatry & Neurology Psychiatry
DX: F60.3 Borderline personality disorder (principal); F31.63 Bipolar disorder, current episode mixed, severe, without psychotic features; F41.1 Generalized anxiety disorder; F43.10 Post-traumatic stress disorder, unspecified
CPT/HCPCS: 90853

== ENCOUNTER → 2022-12-07 | Outpatient (CLI) | payer MEDICAID, SELFPAY ==
[2022-12-07 10:29] LABS: Absolute Lymphocyte Count 1.86 X10^3/uL (0.83-4.51); Absolute Neutrophil Count 7.3 X10^3/uL (2.0-7.7); Basophil# 0.02 X10^3/uL; Basophil% 0.2 % (0-1); Eosinophil# 0.05 X10^3/uL; Eosinophils% 0.5 % (0-5); Hematocrit 42.2 % (37-47); Hemoglobin 14.3 g/dL (12.0-15.0); Lymphocyte # 1.86 X10^3/ul (0.83-4.51); Lymphocyte % 18.6 % (19-41); Mean Corp Hgb Conc 33.9 g/dL (32-36); Mean Corpuscular Hgb 32.9 pg (27.0-32.0); Mean Corpuscular Volume 97.2 fL (81-99); Monocyte# 0.79 X10^3/uL; Monocyte% 7.9 % (0-10); NRBC Flagged by Analyzer 0 % (0-5); Neutrophil # 7.27 X10^3/uL (2.7-7.7); Neutrophil % 72.5 % (47-70); Platelet Count 237 K/mm3 (150-450); RBC Distribution Width CV 12.5 % (11.6-14.6); RBC Distribution Width SD 44.5 fl (35.1-43.9); Red Blood Count 4.34 M/mm3 (4.2-5.4)
== END | disposition home or self-care (01) ==
LOC: LAB 09:57
PROVIDERS: PCP Student in an Organized Health Care Education/Training Program; Referring Provider Advanced Practice Midwife; Visit Provider Advanced Practice Midwife
DX: O99.019 Anemia complicating pregnancy, unspecified trimester (principal)
CPT/HCPCS: 36415; 85025

== ENCOUNTER → 2022-12-14 | Outpatient (CLI) | payer MEDICAID, SELFPAY ==
[2022-12-14 16:55] LABS: Absolute Lymphocyte Count 2.18 X10^3/uL (0.83-4.51); Absolute Neutrophil Count 8.9 X10^3/uL (2.0-7.7); Basophil# 0.02 X10^3/uL; Basophil% 0.2 % (0-1); Eosinophil# 0.07 X10^3/uL; Eosinophils% 0.6 % (0-5); Hematocrit 35.3 % (37-47); Hemoglobin 11.9 g/dL (12.0-15.0); Lymphocyte # 2.18 X10^3/ul (0.83-4.51); Mean Corp Hgb Conc 33.7 g/dL (32-36); Mean Corpuscular Hgb 32.6 pg (27.0-32.0); Mean Corpuscular Volume 96.7 fL (81-99); Mean Platelet Vol. 11.3 fl (6.2-12.0); Monocyte# 0.89 X10^3/uL; Monocyte% 7.4 % (0-10); NRBC Flagged by Analyzer 0 % (0-5); Neutrophil # 8.88 X10^3/uL (2.7-7.7); Neutrophil % 73.4 % (47-70); Platelet Count 256 K/mm3 (150-450); RBC Distribution Width CV 12.4 % (11.6-14.6); RBC Distribution Width SD 43.8 fl (35.1-43.9); Red Blood Count 3.65 M/mm3 (4.2-5.4); White Blood Count 12.1 K/mm3 (4.4-11.0)
[2022-12-14 17:20] LABS: ALB/GLOB Ratio 0.7 RATIO (0.9-2.4); AST(SGOT) 14 U/L (15-37); Alanine Aminotransfer ALT/SGPT 17 U/L (13-56); Albumin, Serum 2.5 g/dL (3.2-5.0); Alkaline Phosphatase 74 U/L (45-117); Anion Gap 6 (5-15); BUN 6 mg/dL (7-18); Calcium,Total 8.6 mg/dL (8.5-10.1); Chloride 105 mmol/L (98-107); EST Glomerular Filtration Rate 126 mL/min (>60); Est Glom Filt Rate - Afr Amer 153 mL/min (>60); Globulin 3.8 g/dL (2.2-4.2); Glucose 86 mg/dL (74-106); Potassium 3.3 mmol/L (3.5-5.1); Protein, Total 6.3 g/dL (6.4-8.2); Sodium Level 136 mmol/L (136-145)
--- NOTE | 2022-12-19 13:46 | BH.DS_ITS ---
Discharge Summary Demographics Date of Admission:: 10/13/22 Discharge Date: 12/08/22 Presenting Problems at Admission:: Client discharged from [facility] tx and transitioned to [facility] aftercare to maintain gains client made in [facility] and to reinforce healthy coping skills. At admission to [facility] aftercare, client reported experiencing mild to moderate symptoms of anxiety, depression, and guilt. Client was reporting ongoing issues with prioritizing self-care, managing her anxiety related to her current , navigating interpersonal relationships, and consistently managing daily stressors. Ongoing difficulties in maintaining consistent with emotion regulation skills, self-compassion, as well as challenging distorted thought patterns. Discharge Diagnoses:: 1. Borderline personality disorde 2. Bipolar 1 disorder, most recent episode mixed, severe without psychosis (F31.63) 3. Generalized anxiety disorder 4. PTSD Reason for Discharge:: Pt has completed the aftercare program and has met the maximum benefit of aftercare tx. Pt will continue with outpatient counseling and psychiatry for ongoing maintenance. Treatment Progress During Treatment & Response: Pt did well with attendance and remained active in engagement. Pt contributed well during group discussions, often providing insight and supportive feedback. Pt was able to see a reduction of overall sx from [facility] admission to aftercare discharge of 45%, with a 25% reduction in Self-harming thoughts, 50% reduction in irritability, 29% reduction in depression, and 33% reduction in sx of anxiety. Pt reports improved ability to manage daily stressors, communicate with supports, and challenge distorted thought patterns. Issues Still to be Addressed:: Distorted thoughts and ongoing issues with emotion regulation, negative self-talk, avoidance, ruminations, difficulty setting boundaries and communicating needs when feeling overwhelmed. Discharge Recommendations/Instructions:: Pt will discharge from [facility] tx today and is scheduled to begin the [facility] Aftercare Program on 10/13/22. Next appointment with outpatient counselor, Raffi varela [facility], scheduled for 10/27/22. Will continue with regularly scheduled appointments with Dr. Vargas for medication management as well. Discharge Handout
== END | disposition home or self-care (01) ==
PROVIDERS: PCP Student in an Organized Health Care Education/Training Program; Referring Provider Nurse Practitioner Women's Health; Visit Provider Nurse Practitioner Women's Health
DX: Z34.90 Encounter for supervision of normal pregnancy, unspecified, unspecified trimester (principal); R10.9 Unspecified abdominal pain
CPT/HCPCS: 36415; 80053; 85025

== ENCOUNTER → 2023-01-18 | Outpatient (CLI) | payer MEDICAID, SELFPAY ==
[2023-01-18 10:00] LABS: Absolute Neutrophil Count 8.7 X10^3/uL (2.0-7.7); Basophil# 0.02 X10^3/uL; Basophil% 0.2 % (0-1); Eosinophil# 0.13 X10^3/uL; Eosinophils% 1.2 % (0-5); Hematocrit 37.5 % (37-47); Hemoglobin 12.3 g/dL (12.0-15.0); Lymphocyte % 14.2 % (19-41); Mean Corp Hgb Conc 32.8 g/dL (32-36); Mean Corpuscular Hgb 32.9 pg (27.0-32.0); Mean Corpuscular Volume 100.3 fL (81-99); Mean Platelet Vol. 11.6 fl (6.2-12.0); Monocyte# 0.81 X10^3/uL; Monocyte% 7.2 % (0-10); NRBC Flagged by Analyzer 0 % (0-5); Neutrophil # 8.68 X10^3/uL (2.7-7.7); Neutrophil % 76.7 % (47-70); Platelet Count 225 K/mm3 (150-450); RBC Distribution Width CV 12.7 % (11.6-14.6); RBC Distribution Width SD 46.5 fl (35.1-43.9); Red Blood Count 3.74 M/mm3 (4.2-5.4); White Blood Count 11.3 K/mm3 (4.4-11.0)
[2023-01-18 10:12] LABS: Glucose Challenge Gest 1H 50g 116 mg/dL (70-140)
[2023-01-18 10:45] LABS: HIV - WCH Non-Reactive (Nonreactive); Syphilis Antibodies Non-reactive
== END | disposition home or self-care (01) ==
LOC: LAB 08:48
PROVIDERS: PCP Student in an Organized Health Care Education/Training Program; Referring Provider Obstetrics & Gynecology; Visit Provider Obstetrics & Gynecology
DX: O09.90 Supervision of high risk pregnancy, unspecified, unspecified trimester (principal); Z13.1 Encounter for screening for diabetes mellitus; Z3A.00 Weeks of gestation of pregnancy not specified
CPT/HCPCS: 36415; 82950; 85025; 86703; 86780

== ENCOUNTER → 2023-01-25 | Outpatient (CLI) | payer MEDICAID, SELFPAY | END | disposition home or self-care (01) | PROVIDERS: PCP Student in an Organized Health Care Education/Training Program; Referring Provider Registered Nurse; Visit Provider Registered Nurse | DX: O23.40 Unspecified infection of urinary tract in pregnancy, unspecified trimester (principal); Z3A.00 Weeks of gestation of pregnancy not specified | CPT/HCPCS: 87086 ==

== ENCOUNTER 2023-02-20 19:10 | Outpatient (CLI) | payer MEDICAID, SELFPAY ==
[2023-02-20 18:03] VITALS: BP 124/74; PULSE 100; RESP 14; TEMP 36.8; O2SAT 98; BMI 33.7
[2023-02-20 19:41] VITALS: BMI 33.7
[2023-02-20 19:43] VITALS: BP 138/82; PULSE 94; TEMP 37
[2023-02-20 19:44] VITALS: PULSE 93; O2SAT 96
[2023-02-20] MEDS: Lactated Ringers 1,000 ML 999 ML IV (20:15)
[2023-02-20 20:26] LABS: Absolute Neutrophil Count 10.9 X10^3/uL (2.0-7.7); Basophil# 0.02 X10^3/uL; Basophil% 0.1 % (0-1); Eosinophil# 0.02 X10^3/uL; Eosinophils% 0.1 % (0-5); Hematocrit 41.8 % (37-47); Hemoglobin 14.4 g/dL (12.0-15.0); Lymphocyte % 12.7 % (19-41); Mean Corp Hgb Conc 34.4 g/dL (32-36); Mean Corpuscular Hgb 33.1 pg (27.0-32.0); Mean Corpuscular Volume 96.1 fL (81-99); Mean Platelet Vol. 11.2 fl (6.2-12.0); Monocyte% 5.2 % (0-10); NRBC Flagged by Analyzer 0 % (0-5); Neutrophil # 10.89 X10^3/uL (2.7-7.7); Neutrophil % 81.6 % (47-70); Platelet Count 228 K/mm3 (150-450); RBC Distribution Width CV 12.5 % (11.6-14.6); RBC Distribution Width SD 44.2 fl (35.1-43.9); Red Blood Count 4.35 M/mm3 (4.2-5.4); White Blood Count 13.4 K/mm3 (4.4-11.0)
[2023-02-20] MEDS: Ondansetron 4 MG/2 ML Vial 8 MG IV (20:48)
[2023-02-20 21:00] LABS: ALB/GLOB Ratio 0.6 RATIO (0.9-2.4); AST(SGOT) 29 U/L (15-37); Alanine Aminotransfer ALT/SGPT 17 U/L (13-56); Albumin, Serum 2.6 g/dL (3.2-5.0); Alkaline Phosphatase 99 U/L (45-117); Anion Gap 9 (5-15); BUN 7 mg/dL (7-18); BUN/Creat Ratio 11.3 RATIO (10-20); Calcium,Total 8.5 mg/dL (8.5-10.1); Chloride 103 mmol/L (98-107); Creatinine, Serum 0.62 mg/dL (0.55-1.02); EST Glomerular Filtration Rate 121 mL/min (>60); Est Glom Filt Rate - Afr Amer 147 mL/min (>60); Estimated Creatinine Clearance 116.65 ml/min; Globulin 4.7 g/dL (2.2-4.2); Glucose 92 mg/dL (74-106); Potassium 3.4 mmol/L (3.5-5.1); Protein, Total 7.3 g/dL (6.4-8.2); Sodium Level 136 mmol/L (136-145)
[2023-02-20] MEDS: Lactated Ringers 1,000 ML 150 ML IV (21:50)
[2023-02-20 22:57] LABS: Red Blood Cells-Urine 0 SEEN /hpf (0-5)
[2023-02-20 22:58] LABS: Color, Urine Yellow (Yellow); Glucose, Dipstick Normal (Normal); Leukocyte Esterase-Dipstick 25 /ul (Negative); Nitrite-Dipstick Negative (Negative); Occult Blood-Urine Negative /ul (Negative); Protein-Dipstick 30 mg/dl (Negative); Specific Gravity, Urine 1.015 (1.002-1.030); Urine Bilirubin Dipstick Negative (Negative); Urine Clarity Sl. Cloudy (Clear); Urine Urobilinogen Normal (Normal)
[2023-02-20 23:15] LABS: Ketone-Dipstick 150 mg/dl (Negative)
[2023-02-20 23:17] LABS: Bacteria 1+ /hpf (None Seen); Mucous, Urine 1+ /hpf (<or=2+); Squamous Epithelial Cells - UA 10-25 SEEN /hpf (5-10); White Blood Cells 0-5 SEEN /hpf (0-5)
[2023-02-20] MEDS: Metoclopramide 10 MG/2 ML Vial 5 MG IV (23:21)
[2023-02-21 00:08] VITALS: TEMP 36.6
[2023-02-21 00:09] VITALS: BP 90/53; PULSE 97; O2SAT 93
[2023-02-21 00:10] VITALS: PULSE 100; O2SAT 96
[2023-02-21 00:23] LABS: Fetal Fibronectin Negative; Record Kit Lot#, fFN E3050
--- NOTE | 2023-02-21 01:37 | OB.TRI.HP_ITS ---
HPI - General General Date of Admission: 02/20/23 Date of Service: 02/20/23 Chief Complaint: nausea/vomiting with contractions HPI Narrative LEIDY WILCOX, is a 27 F who presents at 29.6 with nausea and vomiting since 0400 yesterday morning, unable to keep any liquids down.now with contractions every 5 minutes with back pain. no sick contacts. denies diarrhea. denies vaginal bleeding, leaking of fluid, positive movement. Maternal Data Information MISSY Calculator Estimated Delivery Date Method Current WG Current Estimate 05/02/23 Ultrasound #1 30w 0d Other Estimates 04/08/23 LMP (Certain) 33w 3d PFSH PFSH Medical History (Updated 02/21/23 @ 01:41 by Venus Taylor CNM) Allergic rhinitis Anxiety Asthma Bipolar 1 disorder, mixed, severe Borderline personality disorder Chronic cough Daytime hypersomnia Depression Hhjdrbzpwn-fzpqxed-xkqedggrc (DTP) vaccination Gastric reflux Generalized anxiety disorder History of IBS History of steroid therapy IBS (irritable bowel syndrome) Low-lying placenta in second trimester Non-smoker Pelvic pain Posterior auricular lymphadenopathy PTSD (post-traumatic stress disorder) Suicide attempt Vaginal delivery Vestibular migraine Wears contact lenses Wears glasses Home Medications albuterol sulfate 90 mcg/actuation aerosol inhaler 1 puff inhalation Q4H PRN PRN Asthma 08/17/17 [History Last Taken 08/11/17] epinephrine 0.3 mg/0.3 mL injection, auto-injector 0.3 mg IM DAILY PRN Allergies 08/17/17 [History Last Taken Unknown] fexofenadine 180 mg tablet 180 mg PO DAILY Check with primary doctor 06/25/19 [History Last Taken 02/19/23 22:00] pantoprazole 40 mg tablet,delayed release 40 mg PO BID Check with primary doctor 02/08/21 [History Last Taken 02/20/23 07:30] ipratropium bromide 21 mcg (0.03 %) nasal spray 2 spray intranasal BID Check with primary doctor 03/11/21 [History Last Taken 02/20/23 08:00] pyridoxine (vitamin B6) 500 mg tablet 500 mg PO DAILY Check with primary doctor 04/05/21 [History Last Taken 02/19/23] ferrous sulfate 325 mg (65 mg iron) tablet 325 mg PO BID 02/23/22 [History Last Taken 02/19/23] vitamin with calcium no.72-iron 27 mg-folic acid 1 mg tablet ( Vitamins Plus Low Iron) 1 tab PO DAILY 03/01/22 [History Last Taken 02/19/23] metoclopramide HCl 10 mg tablet 10 mg PO 4X/DAY PRN Headache #20 tabs 09/09/22 [Rx Last Taken Unknown] prazosin 2 mg capsule 2 mg PO QHS #30 caps 12/08/22 [Rx Last Taken 02/18/23] quetiapine 100 mg tablet 100 mg PO QHS #30 tabs 12/08/22 [Rx Last Taken 02/18/23] quetiapine 25 mg tablet 25 mg PO QHS #30 tabs 12/08/22 [Rx Last Taken 02/18/23] escitalopram oxalate 5 mg tablet 5 mg PO DAILY #30 tabs 01/23/23 [Rx Last Taken 02/18/23] Allergy/AdvReac Type Severity Reaction Status Date / Time COVID-19 vaccine, mRNA, Allergy Severe Anaphylaxis Verified 02/20/23 19:35 [id number], prochlorperazine maleate Allergy Severe Anaphylaxis Verified 02/20/23 19:35 [From Compazine] bee venom protein (honey bee) Allergy Anaphylaxis Verified 02/20/23 19:35 omalizumab [From Xolair] Allergy Anaphylaxis Verified 02/20/23 19:35 prochlorperazine edisylate Allergy Swelling Verified 02/20/23 19:35 [From Compazine] Family History Brother Asthma Mother Hypertension Heart disease Father Depression Heart disease Hyperlipidemia Hypertension Surgical History Hx of colonoscopy Hx of dilation and curettage Social History household members: family current occupational status: unemployed pets and animals: Yes Smoking Status: Never smoker second hand exposure: No alcohol intake: never substance use type: does not use seatbelt use: always do you feel safe at home: Yes additional social history: BF Garcia History 3 Elective abortions Hx Para 3 Spontaneous abortions Hx # Term Pregnancies Ectopic pregnancies Hx # Pregnancies Multiple births # of living children 2 Past Pregnancies Del. Date Name GA/Weeks Outcome Route Bth Weight Infant Gen Labor Lgth Anesthesia Del Locatn Provider FOB 04/18/14 Val 41 live - full term 7lbs 7oz Female 9 hours epidural Rebecca Sanderson 08/17/17 [place] 41 live - full term 8lbs 8oz Male [address] [facility] Dr. Sanderson 07/05/21 [place] 24 still SM Delivery Date: 04/18/14 Last Updated by: Yuli Soares no complications Delivery Date: 08/17/17 Last Updated by: Yuli Soares HTayGTay in the Delivery Date: 07/05/21 Last Updated by: Svitlana Malik MD nl NIPT, demise discovered at routine visit, oligohydramnios seen. neg APL and torch titers. Visit Details Expected Delivery Route/Plan Labor Preferences- CB/BF classes: yes labor support person: Garcia(his first) labor intervention preferences: [] pain management options preferred: epidural cut cord/dad catch: yes : yes PP control planned: discussed discussed possible routes of delivery and associated risks: [] special requests: [] Plans Covid status: Flu vaccine: given Tdap vaccine: given Rhogam: NA LARC form signed: yes Problem list reviewed and updated with the most current plan of care details and appropriate orders placed. Relevant counseling for the gestational age provided. Continue routine care and follow up unless otherwise noted in visit notes/problem list details OB Flowsheet Initial Weight: Not Recorded Date -?-?-?-?-?-?-?-?-?-?-?-?- EGA Weight BP Urine Prot -?-?-?-?-?-?-?-?-?-?-?-?- Glucose FHR FuHt Pres Dilation -?-?-?-?-?-?-?-?-?-?-?-?- Effaced St Visit Note 09/09/22 -?-?-?-?-?-?-?-?-?-?-?-?- 6w 3d 161 lb 8 oz 114/71 -?-?-?-?-?-?-?-?-?-?-?-?- 120 -?-?-?-?-?-?-?-?-?-?-?-?- LC- no vb/crampi ng. GS=6.1 weeks. plan to recheck in 2 weeks. LC- no vb/cramping. GS=6.1 w eeks. plan to recheck in 2 weeks, verify MISSY LC- no vb/cramping. GS=6.1 w eeks. plan to recheck in 2 weeks, verify MISSY. +nausea.sending to ED for hydration. [facility] referral for hx of HG 09/22/22 -?-?-?-?-?-?-?-?-?-?-?-?- 8w 2d 112/75 Negative -?-?-?-?-?-?-?-?-?-?-?-?- Negative 175 -?-?-?-?-?-?-?-?-?-?-?-?- JV- pt reassured today with CRL consistent with previously established GA. no si/hi and following with counseling. sending new orders to [facility] 10/07/22 -?-?-?-?-?-?-?-?-?-?-?-?- 10w 3d 167 lb 8 oz 119/83 Nega tive -?-?-?-?-?-?-?-?-?-?-?-?- Negative -?-?-?-?-?-?-?-?-?-?-?-?- JV- visual heart beat on hand held scan. pt reassured. She will be doing her NIPT test monday. call if feels needs to be seen sooner than 4 weeks due to anxiety. currently mood is stable and no complaints. 10/21/22 -?-?-?-?-?--?-?-?-?-?-?-?- 12w 3d -?-?-?-?-?-?-?-?-?-?-?-?- -?-?-?-?-?-?-?-?-?-?-?-?- KW-some spotting today, AB+. strong visual heart beat of hand held US. Urine culture sent. Formal anatomy US ordered today. 11/03/22 -?-?-?-?-?-?-?-?-?-?-?-?- 14w 2d 171 lb 6 oz 119/81 Nega tive -?-?-?-?-?-?-?-?-?-?-?-?- Negative 160 -?-?-?-?-?-?-?-?-?-?-?-?- JV- no lof, vagi nal bleeding, or cramping. no complaints today. wants to come back in 2 weeks for heart tones. official scan ordered. 11/16/22 -?-?-?-?-?-?-?-?-?-?-?-?- 16w 1d 173 lb 4 oz 117/73 Nega tive -?-?-?-?-?-?-?-?-?-?-?-?- Negative 158 -?-?-?-?-?-?-?-?-?-?-?-?- MH-No VB. Greg rich. Normal PN labs. Will arrange more frequent visits at 18-21 wk due to prior loss. 12/02/22 -?-?-?-?-?-?-?-?-?-?-?-?- 18w 3d 180 lb 8 oz 113/76 Nega tive -?-?-?-?-?-?-?-?-?-?-?-?- Negative 150 -?-?-?-?-?-?-?-?-?-?-?-?- KW-No Vb/christiana coy. US next week. 12/14/22 -?-?-?-?-?-?-?-?-?-?-?-?- 20w 1d 184 lb 4 oz 116/74 Nega tive -?-?-?-?-?-?-?-?-?-?-?-?- Negative 154 -?-?-?-?-?-?-?-?-?-?-?-?- MH-No VB. Jelani Soler. Having LUQ pain X 3 days. No fever, nausea. States BM daily. Discussed with JV. Labs ordered. RTO if persists, worsens 12/20/22 -?-?-?-?-?-?-?-?-?-?-?-?- 21w 0d 185 lb 2 oz 120/72 Nega tive -?-?-?-?-?-?-?-?-?-?-?-?- Negative 152 -?-?-?-?-?-?-?-?-?-?-?-?- MH-NO VB. Good F M. LUQ pain much improved. Denies concerns 12/29/22 -?-?-?-?-?-?-?-?-?-?-?-?- 22w 2d 190 lb 8 oz 128/81 Nega tive -?-?-?-?-?-?-?-?-?-?-?-?- Negative -?-?-?-?-?-?-?-?-?-?-?-?- SM- no vb lof in termittent fm, no ctx, feeling anxious about previous loss and she is near the timeline. 01/04/23 -?-?-?-?-?-?-?-?-?-?-?-?- 23w 1d 190 lb 4 oz 128/81 Nega tive -?-?-?-?-?-?-?-?-?-?-?-?- Negative 150 -?-?-?-?-?-?-?-?-?-?-?-?- SM- no vb lof so me fm 01/13/23 -?-?-?-?-?-?-?-?-?-?-?-?- 24w 3d 194 lb 8 oz 128/78 Nega tive -?-?-?-?-?-?-?-?-?-?-?-?- Negative 145 -?-?-?-?-?-?-?-?-?-?-?-?- SM- no vb lof go od fm no regular ctx still having abdominalpain- getting imaging this week 01/18/23 -?-?-?-?-?-?-?-?-?-?-?-?- 25w 1d 198 lb 124/82 Negative -?-?-?-?-?-?-?-?-?-?-?-?- Negative 140 26 -?-?-?-?-?-?-?-?-?-?-?-?- MH-No VB, LOF. G ood FM. Denies concerns 01/25/23 -?-?-?-?-?-?-?-?-?-?-?-?- 26w 1d 200 lb 4 oz 119/73 Nega tive -?-?-?-?-?-?-?-?-?-?-?-?- Negative 145 26 -?-?-?-?-?-?-?-?-?-?-?-?- LC- no vb/ctx/lo fTay good fm. having cramping prior to urinating and increased urgency/frequency. urine dip and culture obtained. 02/07/23 -?-?-?-?-?-?-?-?-?-?-?-?- 28w 0d 202 lb 6 oz 116/70 Nega tive -?-?-?-?-?-?-?-?-?-?-?-?- Negative 151 29 -?-?-?-?-?-?-?-?-?-?-?-?- MH-No VB, LOFTay G ood FM. tdap. larc. US today pending. Physical Exam Const alert, oriented x3 and no apparent distress Resp normal respiratory effort, normal air movement, no retractions and no use of accessory muscles Cardio regular rate and regular rhythm GI soft to palpation and non-tender Inspection: Palpation: soft Rectal Exam: deferred no CVA tenderness and external exam normal Bimanual Exam - Vag & Uterus: uterus non-tender and other gravid uterus, normal for gestational age OB / External & Speculum: Negative for herpetic lesions Manual OB Exam: estimated gestational size appropriate and presentation cephalic Amniotic Fluid: no amniotic fluid noted Extremity normal to inspection and full ROM Neuro Motor Exam: strength 5/5 throughout and muscle tone normal throughout Deep Tendon Reflexes: Rt Patellar (L4): 2+ and Lt Patellar (L4): 2+ NST FHR Rate Baby A Baseline: 140 Variability:: Moderate Accelerations:: 15 x 15 Decelerations:: None NST Reactive:: Yes FHR Category:: Category I Uterine Activity:: now none. Assessment & Plan (1) Nausea and vomiting during : COMMENT: zofran, reglan and ivf bolus followed by 150ml/hr PLAN: slowly advance diet, enc continue po hydration. zofran po at home. has rx already. (2) contractions: COMMENT: ffn negative, no cervical change PLAN: Plan Patient presents for triage evaluation secondary to n/v and contractions, improvement with IVF bolus, rehydration and IV antiemetics. ffn negative, no change in cervical exam. FHT: Moderate variability reactive no decelerations category I tracing Halfway: now no Contractions Assessment and plan: Reactive NST, reassuring maternal and status patient discharged to home to follow-up in office. See problem list details for additional plan information. Charges/Coding Procedures Urinary/Genital [id number]: 12598-46 non-stress test Interp Multi Select Codes Visit Charges Office Visit/Consults: 08187 OV L3 Est Urinary/Genital Urinary/Genital CPT Codes: 04071-20 non-stress test Interp
[2023-02-21 01:56] VITALS: BP 118/57; PULSE 101; PULSE 104; O2SAT 96
== END 2023-02-21 02:00 | disposition home or self-care (01) ==
LOC: WPOUT 19:15 → WP 19:15
PROVIDERS: PCP Student in an Organized Health Care Education/Training Program; Visit Provider Registered Nurse
DX: O47.03 False labor before 37 completed weeks of gestation, third trimester (principal); F31.9 Bipolar disorder, unspecified; O99.613 Diseases of the digestive system complicating pregnancy, third trimester; K21.9 Gastro-esophageal reflux disease without esophagitis; Z3A.29 29 weeks gestation of pregnancy; Z79.899 Other long term (current) drug therapy; O99.343 Other mental disorders complicating pregnancy, third trimester; F41.1 Generalized anxiety disorder; O21.9 Vomiting of pregnancy, unspecified
CPT/HCPCS: 96374; 96361 ×2; 96375; 96376; 36415; 59025; 59050; 80053; 81001; 82731; 85025; J7120; J2405

== ENCOUNTER → 2023-03-17 | Outpatient (CLI) | payer MEDICAID, SELFPAY ==
--- NOTE | 2023-03-17 11:37 | US_ITS ---
STUDY: OBSTETRICAL ULTRASOUND - BIOPHYSICAL PROFILE REASON FOR EXAM: Female, 27 years old Non reactive NST in office LMP: July 26, 2022. PRIOR ULTRASOUND: None. TECHNIQUE: Transabdominal TECHNICAL QUALITY: Adequate. FINDINGS: There is a single intrauterine fetus. The fetus is in a cephalic presentation. There is demonstrated cardiac activity with a heart rate of 135 bpm. There is a normal amniotic fluid volume. The largest amniotic fluid pocket measures 4.5 cm x 6.2 cm. The amniotic fluid index (BRISEYDA) is 15 cm. The placenta is There are Grade 0 placental changes. Age by LMP: 33 weeks, 3 days. MISSY by LMP: May 02, 2023. BIOPHYSICAL PROFILE: Breathing Movements (FBM): 2 Gross Body Movements (GBM): 2 Tone (FT): 2 Amniotic Fluid Volume (AFV): 2 TOTAL SCORE: 8 / 8 US/Biophysical Prof W/O Non Stres IMPRESSION: Normal biophysical profile of 8/8. Electronically Signed: Marcus Leigh MD at 15:13 EST ,
== END | disposition home or self-care (01) ==
LOC: US 11:36
PROVIDERS: PCP Student in an Organized Health Care Education/Training Program; Referring Provider Obstetrics & Gynecology; Visit Provider Obstetrics & Gynecology
DX: O36.4XX0 Maternal care for intrauterine death, not applicable or unspecified (principal)
CPT/HCPCS: 76819

== ENCOUNTER → 2023-04-05 | Outpatient (CLI) | payer MEDICAID, SELFPAY ==
--- NOTE | 2023-04-05 14:19 | US_ITS ---
STUDY: SECOND AND THIRD TRIMESTER OBSTETRICAL ULTRASOUND - LIMITED REASON FOR EXAM: Female, 27 years old IUFD prior LMP: Unknown. PRIOR ULTRASOUND: 03/17/2023. TECHNIQUE: Transabdominal TECHNICAL QUALITY: Adequate. FINDINGS: There is a single intrauterine fetus. The fetus is in a cephalic presentation. There is demonstrated cardiac activity with a heart rate of 132 bpm. There is a normal amniotic fluid volume. The largest amniotic fluid pocket measures 4.0 x 3.7 cm. The amniotic fluid index (BRISEYDA) is 13.2 cm. The placenta is posterior in location and is not low lying. There are Grade 0 placental changes. The cervix measures 4.4 cm in length. The cervix is closed. BIOMETRY: BPD: 9.19 cm: 37 weeks, 2 days HC: 33.86 cm: 38 weeks, 6 days AC: 34.25 cm: 38 weeks, 1 days FL: 7.21 cm: 37 weeks, 0 days Age by LMP: 36 weeks and 1 day with a estimated date of delivery of 05/02/2023. age by prior US: No prior ultrasound. age by current US: 37 weeks, 6 days. MISSY by current US: 04/20/2023.. Estimated weight: 3323 grams, +/- 498 grams, 89 percentile. US/OB Limited With Biometrics IMPRESSION: Single intrauterine with ultrasound age of 37 weeks and 6 days and estimated date of delivery of 04/20/2023. Vertex presentation. Normal amniotic fluid. Normal cardiac activity. Electronically Signed: Lizbet Weiner MD at 22:23 EST ,
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
== END | disposition home or self-care (01) ==
PROVIDERS: PCP Student in an Organized Health Care Education/Training Program; Referring Provider Obstetrics & Gynecology; Visit Provider Obstetrics & Gynecology
DX: O36.4XX0 Maternal care for intrauterine death, not applicable or unspecified (principal); Z3A.00 Weeks of gestation of pregnancy not specified
CPT/HCPCS: 76816

== ENCOUNTER → 2023-04-07 | Outpatient (CLI) | payer MEDICAID, SELFPAY ==
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
== END | disposition home or self-care (01) ==
LOC: LABSPEC 16:52
PROVIDERS: PCP Student in an Organized Health Care Education/Training Program; Referring Provider Obstetrics & Gynecology; Visit Provider Obstetrics & Gynecology
DX: O09.90 Supervision of high risk pregnancy, unspecified, unspecified trimester (principal); Z3A.00 Weeks of gestation of pregnancy not specified
CPT/HCPCS: 87077; 87081; 87186

== ENCOUNTER 2023-04-25 06:45 | Inpatient (IN) | payer MEDICAID, SELFPAY ==
[2023-04-25] VITALS (70 sets, daily range): BP systolic 116–159; BP diastolic 56–98; PULSE 96–178; TEMP 36.7–37.4; O2SAT 82–100; BMI 36.8
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
[2023-04-25] MEDS: Lactated Ringers 1,000 ML 50 ML IV (07:55)
[2023-04-25] MEDS: LACTATED RINGERS 500 ML 999 ML IV ×3 (08:15→17:57)
[2023-04-25] MEDS: Penicillin G Pot 5,000,000 UNITS in 0.9% Normal Saline (100mL MB+) 100 ML 150 UNITS IV (08:16)
--- NOTE | 2023-04-25 08:18 | HP.PCM.OB_ITS ---
HPI - General General Date of Admission: 04/25/23 Date of Service: 04/25/23 HPI Narrative LEIDY WILCOX, is a 27 F who presents at 39.0 weeks for induction of labor for history of IUFD at 22 weeks gestation. Maternal Data Information MISSY Calculator Estimated Delivery Date Method Current WG Current Estimate 05/02/23 Ultrasound #1 39w 0d Other Estimates 04/08/23 LMP (Certain) 42w 3d Final MISSY: 05/02/23 Final MISSY Source: US >20 weeks Gestational age: 39.0 PFSH PFSH Medical History Allergic rhinitis Anxiety Asthma Asthmatic bronchitis with exacerbation Bipolar 1 disorder, mixed, severe Borderline personality disorder Chronic cough Daytime hypersomnia Depression Soqodfgrjt-krvkzdr-kevelufpc (DTP) vaccination Gastric reflux Generalized anxiety disorder History of IBS History of steroid therapy IBS (irritable bowel syndrome) Low-lying placenta in second trimester Non-smoker Pelvic pain Posterior auricular lymphadenopathy PTSD (post-traumatic stress disorder) Suicide attempt Vaginal delivery Vestibular migraine Wears contact lenses Wears glasses Home Medications albuterol sulfate 90 mcg/actuation aerosol inhaler 1 puff inhalation Q4H PRN PRN Asthma 08/17/17 [History Last Taken 08/11/17] epinephrine 0.3 mg/0.3 mL injection, auto-injector 0.3 mg IM DAILY PRN Allergies 08/17/17 [History Last Taken Unknown] fexofenadine 180 mg tablet 180 mg PO DAILY Check with primary doctor 06/25/19 [History Last Taken 04/24/23 22:00] pantoprazole 40 mg tablet,delayed release 40 mg PO BID Check with primary doctor 02/08/21 [History Last Taken 04/25/23 06:00] ipratropium bromide 21 mcg (0.03 %) nasal spray 2 spray intranasal BID Check with primary doctor 03/11/21 [History Last Taken 04/25/23 06:00] ferrous sulfate 325 mg (65 mg iron) tablet 325 mg PO BID anemia 02/23/22 [History Last Taken 04/24/23 22:00] vitamin with calcium no.72-iron 27 mg-folic acid 1 mg tablet ( Vitamins Plus Low Iron) 1 tab PO DAILY 03/01/22 [History Last Taken 04/24/23 22:00] metoclopramide HCl 10 mg tablet 10 mg PO 4X/DAY PRN Headache #20 tabs 09/09/22 [Rx Last Taken Unknown] escitalopram oxalate 10 mg tablet 10 mg PO DAILY mood disorder 30 days #30 tabs 03/22/23 [Rx Last Taken 04/25/23 06:00] prazosin 2 mg capsule 2 mg PO QHS sleep #30 caps 03/22/23 [Rx Last Taken 04/24/23 22:00] quetiapine 100 mg tablet 100 mg PO QHS bipolar #30 tabs 03/22/23 [Rx Last Taken 04/24/23 22:00] quetiapine 25 mg tablet 25 mg PO QHS bipolar #30 tabs 03/22/23 [Rx Last Taken 04/24/23 22:00] fluticasone propionate 50 mcg/actuation nasal spray,suspension 1 spray intranasal BID asthma 04/25/23 [History Last Taken 04/25/23 06:00] ondansetron HCl 8 mg tablet 8 mg PO DAILY heartburn 04/25/23 [History Last Taken Unknown] Allergy/AdvReac Type Severity Reaction Status Date / Time COVID-19 vaccine, mRNA, Allergy Severe Anaphylaxis Verified 04/25/23 07:41 [id number], prochlorperazine maleate Allergy Severe Anaphylaxis Verified 04/25/23 07:41 [From Compazine] bee venom protein (honey bee) Allergy Anaphylaxis Verified 04/25/23 07:41 omalizumab [From Xolair] Allergy Anaphylaxis Verified 04/25/23 07:41 prochlorperazine edisylate Allergy Swelling Verified 04/25/23 07:41 [From Compazine] Family History Brother Asthma Mother Hypertension Heart disease Father Depression Heart disease Hyperlipidemia Hypertension Surgical History Hx of colonoscopy Hx of dilation and curettage Social History household members: family current occupational status: unemployed pets and animals: Yes Smoking Status: Never smoker second hand exposure: No alcohol intake: never substance use type: does not use seatbelt use: always do you feel safe at home: Yes additional social history: BF Garcia History 3 Elective abortions Hx Para 3 Spontaneous abortions Hx # Term Pregnancies Ectopic pregnancies Hx # Pregnancies Multiple births # of living children 2 Past Pregnancies Del. Date Name GA/Weeks Outcome Route Bth Weight Gen Labor Lgth Anesthesia Del Locatn Provider FOB 04/18/14 Val 41 live - full term 7lbs 7oz Female [address] Sanderson 08/17/17 Scooter 41 live - full term 8lbs 8oz Male 4 ho urs epidural [facility] Dr. Sanderson 07/05/21 [place] 24 still SM Delivery Date: 04/18/14 Last Updated by: Yuli Soares no complications Delivery Date: 08/17/17 Last Updated by: Yuli Castorena in the Delivery Date: 07/05/21 Last Updated by: Svitlana Malik MD nl NIPT, demise discovered at routine visit, oligohydramnios seen. neg APL and torch titers. Visit Details Expected Delivery Route/Plan Labor Preferences- CB/BF classes: yes labor support person: Garcia(his first) labor intervention preferences: [] pain management options preferred: epidural cut cord/dad catch: yes : yes PP control planned: discussed discussed possible routes of delivery and associated risks: [] special requests: [] Plans Covid status: Flu vaccine: given Tdap vaccine: given Rhogam: NA LARC form signed: yes movement and labor precautions reviewed. Problem list reviewed and updated with the most current plan of care details and appropriate orders placed. Relevant counseling for the gestational age provided. Continue routine care and follow up unless otherwise noted in visit notes/problem list details OB Flowsheet Initial Weight: Not Recorded Date -?-?-?-?-?-?-?-?-?-?-?-?- EGA Weight BP Urine Prot -?-?-?-?-?-?-?-?-?-?-?-?- Glucose FHR FuHt Pres Dilation -?-?-?-?-?-?-?-?-?-?-?-?- Effaced St Visit Note 09/09/22 -?-?-?-?-?-?-?-?-?-?-?-?- 6w 3d 161 lb 8 oz 114/71 -?-?-?-?-?-?-?-?-?-?-?-?- 120 -?-?-?-?-?-?-?-?-?-?-?-?- LC- no vb/crampi ng. GS=6.1 weeks. plan to recheck in 2 weeks. LC- no vb/cramping. GS=6.1 w eeks. plan to recheck in 2 weeks, verify MISSY LC- no vb/cramping. GS=6.1 w eeks. plan to recheck in 2 weeks, verify MISSY. +nausea.sending to ED for hydration. [facility] referral for hx of HG 09/22/22 -?-?-?-?-?-?-?-?-?-?-?-?- 8w 2d 112/75 Negative -?-?-?-?-?-?-?-?-?-?-?-?- Negative 175 -?-?-?-?-?-?-?-?-?-?-?-?- JV- pt reassured today with CRL consistent with previously established GA. no si/hi and following with counseling. sending new orders to [facility] 10/07/22 -?-?-?-?-?-?-?-?-?-?-?-?- 10w 3d 167 lb 8 oz 119/83 Nega tive -?-?-?-?-?-?-?-?-?-?-?-?- Negative -?-?-?-?-?-?-?-?-?-?-?-?- JV- visual heart beat on hand held scan. pt reassured. She will be doing her NIPT test monday. call if feels needs to be seen sooner than 4 weeks due to anxiety. currently mood is stable and no complaints. 10/21/22 -?-?-?-?-?--?-?-?-?-?-?-?- 12w 3d -?-?-?-?-?-?-?-?-?-?-?-?- -?-?-?-?-?-?-?-?-?-?-?-?- KW-some spotting today, AB+. strong visual heart beat of hand held US. Urine culture sent. Formal anatomy US ordered today. 11/03/22 -?-?-?-?-?-?-?-?-?-?-?-?- 14w 2d 171 lb 6 oz 119/81 Nega tive -?-?-?-?-?-?-?-?-?-?-?-?- Negative 160 -?-?-?-?-?-?-?-?-?-?-?-?- JV- no lof, vagi nal bleeding, or cramping. no complaints today. wants to come back in 2 weeks for heart tones. official scan ordered. 11/16/22 -?-?-?-?-?-?-?-?-?-?-?-?- 16w 1d 173 lb 4 oz 117/73 Nega tive -?-?-?-?-?-?-?-?-?-?-?-?- Negative 158 -?-?-?-?-?-?-?-?-?-?-?-?- MH-No VB. Godfreyin g well. Normal PN labs. Will arrange more frequent visits at 18-21 wk due to prior loss. 12/02/22 -?-?-?-?-?-?-?-?-?-?-?-?- 18w 3d 180 lb 8 oz 113/76 Nega tive -?-?-?-?-?-?-?-?-?-?-?-?- Negative 150 -?-?-?-?-?-?-?-?-?-?-?-?- KW-No Vb/crano g. good fm. US next week. 12/14/22 -?-?-?-?-?-?-?-?-?-?-?-?- 20w 1d 184 lb 4 oz 116/74 Nega tive -?-?-?-?-?-?-?-?-?-?-?-?- Negative 154 -?-?-?-?-?-?-?-?-?-?-?-?- MH-No VB. Jelani Soler. Having LUQ pain X 3 days. No fever, nausea. States BM daily. Discussed with JV. Labs ordered. RTO if persists, worsens 12/20/22 -?-?-?-?-?-?-?-?-?-?-?-?- 21w 0d 185 lb 2 oz 120/72 Nega tive -?-?-?-?-?-?-?-?-?-?-?-?- Negative 152 -?-?-?-?-?-?-?-?-?-?-?-?- -NO VB. Jelani Soler. LUQ pain much improved. Denies concerns 12/29/22 -?-?-?-?-?-?-?-?-?-?-?-?- 22w 2d 190 lb 8 oz 128/81 Nega tive -?-?-?-?-?-?-?-?-?-?-?-?- Negative -?-?-?-?-?-?-?-?-?-?-?-?- SM- no vb lof in termittent fm, no ctx, feeling anxious about previous loss and she is near the timeline. 01/04/23 -?-?-?-?-?-?-?-?-?-?-?-?- 23w 1d 190 lb 4 oz 128/81 Nega tive -?-?-?-?-?-?-?-?-?-?-?-?- Negative 150 -?-?-?-?-?-?-?-?-?-?-?-?- SM- no vb lof so me fm 01/13/23 -?-?-?-?-?-?-?-?-?-?-?-?- 24w 3d 194 lb 8 oz 128/78 Nega tive -?-?-?-?-?-?-?-?-?-?-?-?- Negative 145 -?-?-?-?-?-?-?-?-?-?-?-?- SM- no vb lof go od fm no regular ctx still having abdominalpain- getting imaging this week 01/18/23 -?-?-?-?-?-?-?-?-?-?-?-?- 25w 1d 198 lb 124/82 Negative -?-?-?-?-?-?-?-?-?-?-?-?- Negative 140 26 -?-?-?-?-?-?-?-?-?-?-?-?- MH-No VB, LOFTay sanders FM. Denies concerns 01/25/23 -?-?-?-?-?-?-?-?-?-?-?-?- 26w 1d 200 lb 4 oz 119/73 Nega tive -?-?-?-?-?-?-?-?-?-?-?-?- Negative 145 26 -?-?-?-?-?-?-?-?-?-?-?-?- LC- no vb/ctx/petrona guzman fm. having cramping prior to urinating and increased urgency/frequency. urine dip and culture obtained. 02/07/23 -?-?-?-?-?-?-?-?-?-?-?-?- 28w 0d 202 lb 6 oz 116/70 Nega tive -?-?-?-?-?-?-?-?-?-?-?-?- Negative 151 29 -?-?-?-?-?-?-?-?-?-?-?-?- MH-No PETRONA RAMIREZFTay FRITZ. tdap. larc. US today pending. 02/22/23 -?-?-?-?-?-?-?-?-?-?-?-?- 30w 1d 203 lb 2 oz 124/82 -?-?-?-?-?-?-?-?-?-?-?-?- 145 30 -?-?-?-?-?-?-?-?-?-?-?-?- SM- having inter mittent contracitons, seen in triage for dehydration. 03/10/23 -?-?-?-?-?-?--?-?-?-?-?-?- 32w 3d -?-?-?-?-?-?-?-?-?-?-?-?- 120 33 -?-?-?-?-?-?-?-?-?-?-?-?- Kw- no vb/cradelmii ng. good fm. NST today-reactive. no concerns 03/17/23 -?-?-?-?-?-?-?-?-?-?-?-?- 33w 3d 209 lb 120/74 Trace -?-?-?-?-?-?-?-?-?-?-?-?- Negative 135 33 -?-?-?-?-?-?-?-?-?-?-?-?- SM- no vb lof go od fm no regular ctx BPP done for isolated variable on monitor 03/24/23 -?-?-?-?-?-?-?-?-?-?-?-?- 34w 3d 210 lb 120/80 Negative -?-?-?-?-?-?--?-?-?-?-?-?- Negative 130 36.5 -?-?-?-?-?-?-?-?-?-?-?-?- JV- NSt is react andria today. measuring large. will order growth scan for 36-jazz weeks. 03/31/23 -?-?-?-?-?-?-?-?-?-?-?-?- 35w 3d 210 lb 110/75 Negative -?-?-?-?-?-?-?-?-?-?-?-?- Negative 140 37 -?-?-?-?-?-?-?-?-?-?-?-?- SM- no vb lof go od fm no regular ctx growth US 04/07/23 -?-?-?-?-?-?-?-?-?-?-?-?- 36w 3d 213 lb 6 oz 127/85 -?-?-?-?-?-?-?-?-?-?-?-?- 140 37 Cephalic -?-?-?-?-?-?-?-?-?-?-?-?- SM- gbs done no vb lof good fm no regular ctx 04/14/23 -?-?-?-?-?-?-?-?-?-?-?-?- 37w 3d 214 lb 4 oz 126/82 Nega tive -?-?-?-?-?-?-?-?-?-?-?-?- Negative 120 Cephalic 1.5 -?-?-?-?-?-?-?-?-?-?-?-?- 50 -2 JV- no lof , vaginal bleeding, or dec fm. IOL set up for 04/25 (39 weeks) nst reactive. 04/21/23 -?-?-?-?-?-?-?-?-?-?-?-?- 38w 3d 219 lb 130/79 -?-?-?-?-?-?-?-?-?-?-?-?- 130 38 Cephalic 2.5 -?-?-?-?-?-?-?-?-?-?-?-?- 60 -2 KW- no vb/ lof/ctx. good fm. membrane sweep today. IOL for . NST FHR Rate Baby A Baseline: 160 Variability:: Minimal Accelerations:: 15 x 15 Decelerations:: None NST Reactive:: Yes FHR Category:: Category I Uterine Activity:: irregular ROS Constitutional Constitutional: Denies change in weight, fatigue, fever(s), headache(s), poor appetite or weakness Eyes Eyes: Denies blurry vision, change in vision, floaters, seeing flashes or spots in vision ENT HEENT: Denies dizziness, headache(s), loss taste/smell or sore throat Cardiovascular Cardiovascular: Denies chest pain, dizziness, dyspnea, irregular heart rhythm, lightheadedness, palpitations or rapid heart rate Respiratory/Chest Respiratory/Chest: Denies change in mental status, chest tightness, cough, dyspnea or breast pain Gastrointestinal Gastrointestinal: Denies anorexia, chewing difficulty, constipation, diarrhea or weight changes Genitourinary Genitourinary: Denies difficulty urinating, dysuria, flank pain, genital pain, urinary frequency or urinary urgency Musculoskeletal Musculoskeletal: Denies back pain, difficulty walking, extremity pain, joint pain, muscle cramps or muscle weakness Integumentary Integumentary: Denies lesions or unusual bruising Neurologic Neurologic: Denies abnormal movements, abnormal speech, dizziness, numbness, seizure-like activity, syncope or weakness Psychiatric Psychiatric: Denies behavioral changes, change in appetite, confusion, depression, homicidal ideation, suicidal ideation or suicidal thoughts Endocrine Endocrinology: Denies excessive sweating, polydipsia or polyuria Hematologic/Lymphatic Hematologic/Lymphatic: Denies anemia Allergic/Immunologic Allergic/Immunologic: Denies itchy eyes, lip swelling, throat swelling, tongue swelling or wheezing Vital Signs Vital Signs Vital Signs: 04/25/23 07:45 04/25/23 07:45 04/25/23 07:45 Pulse Rate 117 H 120 H Blood Pressure 123/82 H BP Systolic 123 BP Diastolic 82 Pulse Ox 04/25/23 07:45 Pulse Rate Blood Pressure BP Systolic BP Diastolic Pulse Ox 97 Weight Weight: 214 lb 4 oz Body Mass Index (BMI) 36.8 Physical Exam Const alert, oriented x3 and no apparent distress General Appearance: cooperative Orientation / Consciousness: awake HEENT normocephalic Neck full ROM Lymph Lymphatic: no lymphadenopathy noted Chest inspection of chest normal Resp normal respiratory effort and normal air movement Effort and Inspection: able to speak in complete sentences and symmetric chest movement GI soft to palpation and non-tender Inspection: gravid Palpation: soft; Negative for tender external exam normal Manual OB Exam: presentation cephalic, dilated 3, effaced 60 and station - 2 Back/Spine normal to inspection Extremity normal to inspection and full ROM Skin no rashes or lesions noted Psych mental status grossly normal Appearance: grossly normal Speech: normal speech Labs Labs Labs: Blood Type AB POSITIVE Antibody Screen NEGATIVE Hct 41.8 % (37-47) Hgb 14.4 g/dL (12.0-15.0) Obstetrics Ultrasound Syphilis Total Ab Non-reactive Rubella IgG Antibody Reactive (Nonreactive) Hep Bs Antigen Non-Reactive (Nonreactive) Hepatitis C Antibody Non-Reactive (Nonreactive) Chlamydia DNA (ARJUN) Negative (Negative) N.gonorrhoeae DNA (ARJUN) Negative (Negative) HIV 1&2 Antibody Non-Reactive (Nonreactive) Glucose 1 Hr 50 gm 116 mg/dL (70-140) Group B Strep DNA Negative (Negative) Rhogam given: No Miscellaneous Test Assessment & Plan (1) Encounter for induction of labor: COMMENT: pitocin/AROM planned PLAN: Patient presents IOL, plan management for with pitocin/AROM. Pain management: plans no epidural. GBS positive-PCN. Management of any complications: none I have reviewed the [facility] and made any clinically relevant updates. (2) Depression: QUALIFIERS: Depression Type: major depressive disorder Major depression recurrence: recurrent Active/Remission status: in partial remission Qualified Code(s): F33.41 - Major depressive disorder, recurrent, in partial remission COMMENT: counseling weekly. neli Mendoza (3) Asthma: QUALIFIERS: Asthma severity: severe Asthma persistence: persistent Asthma complication type: uncomplicated Qualified Code(s): J45.50 - Severe persistent asthma, uncomplicated COMMENT: INHALERS USED (4) Bipolar II disorder: (5) Borderline personality disorder: (6) IUFD at 20 weeks or more of gestation: COMMENT: oligo seen at time of evaluation. measuring 22 weeks [place] weekly nsts from 32 on (7) : QUALIFIERS: Weeks of gestation: 37 weeks Qualified Code(s): Z3A.37 - 37 weeks gestation of COMMENT: slr NIPT, declined carrier, afp. anatomy reviewed. (8) Supervision of high-risk : QUALIFIERS: Trimester: second trimester Qualified Code(s): O09.92 - Supervision of high risk , unspecified, second trimester COMMENT: PRR MISSY 05/02/2023 girl [place] PC:Scooter Neal Viola(IUFD at 20 weeks) boyfriend: Garcia(his first child) (9) Positive GBS test: COMMENT: PCN in labor (10) Asthmatic bronchitis with exacerbation: Charges/Coding Multi Select Codes Urinary/Genital Urinary/Genital CPT Codes: No Charge
[2023-04-25 08:33] LABS: Absolute Lymphocyte Count 1.72 X10^3/uL (0.83-4.51); Absolute Neutrophil Count 7.7 X10^3/uL (2.0-7.7); Basophil# 0.02 X10^3/uL; Basophil% 0.2 % (0-1); Eosinophil# 0.06 X10^3/uL; Eosinophils% 0.6 % (0-5); Hematocrit 37.8 % (37-47); Hemoglobin 12.5 g/dL (12.0-15.0); Lymphocyte # 1.72 X10^3/ul (0.83-4.51); Lymphocyte % 16.3 % (19-41); Mean Corp Hgb Conc 33.1 g/dL (32-36); Mean Corpuscular Hgb 31.1 pg (27.0-32.0); Mean Platelet Vol. 12.2 fl (6.2-12.0); Monocyte# 1.02 X10^3/uL; Monocyte% 9.7 % (0-10); NRBC Flagged by Analyzer 0 % (0-5); Neutrophil # 7.67 X10^3/uL (2.7-7.7); Neutrophil % 72.5 % (47-70); Platelet Count 164 K/mm3 (150-450); RBC Distribution Width CV 13.4 % (11.6-14.6); RBC Distribution Width SD 45.7 fl (35.1-43.9); Red Blood Count 4.02 M/mm3 (4.2-5.4); White Blood Count 10.6 K/mm3 (4.4-11.0)
[2023-04-25] MEDS: Oxytocin 15 Units/NS 250ml 15 UNITS/250 ML IV.SOLN 2 UNITS IV (09:00)
[2023-04-25 09:33] LABS: Syphilis Antibodies Non-reactive
[2023-04-25] MEDS: Penicillin G 3,000,000 Units 50 ML 100 UNITS IV ×3 (12:02→20:15)
--- NOTE | 2023-04-25 13:54 | PN_ITS ---
Progress Note Coping well with contractions current tracing: FHT: 135 Moderate variability reactive no decelerations category I tracing [place]: 2-3 minutes Contractions Membranes: AROM 1317 clear fluid SVE:4/60/-2 A/P: Continue with position changes Titrate pitocin per protocol Epidural per anesthesia if requested PCN for GBS prophylaxis Anticipate Dr Malik aware of above assessment and agrees with plan of care Assessment & Plan Assessment/Plan (1) Positive GBS test: (2) Supervision of high-risk : QUALIFIERS: Trimester: second trimester Qualified Code(s): O09.92 - Supervision of high risk , unspecified, second trimester (3) Encounter for induction of labor: (4) : QUALIFIERS: Weeks of gestation: 37 weeks Qualified Code(s): Z3A.37 - 37 weeks gestation of (5) Bipolar II disorder: (6) IUFD at 20 weeks or more of gestation: (7) Asthmatic bronchitis with exacerbation: (8) Borderline personality disorder: (9) Asthma: QUALIFIERS: Asthma severity: severe Asthma persistence: persistent Asthma complication type: uncomplicated Qualified Code(s): J45.50 - Severe persistent asthma, uncomplicated (10) Depression: QUALIFIERS: Depression Type: major depressive disorder Major depression recurrence: recurrent Active/Remission status: in partial remission Qualified Code(s): F33.41 - Major depressive disorder, recurrent, in partial remission Multi Select Codes Urinary/Genital Urinary/Genital CPT Codes: No Charge
[2023-04-25] MEDS: Ondansetron 4 MG/2 ML Vial IV ×2 (16:43→20:15)
[2023-04-25] MEDS: fentaNYL-bupivacaine (epidural) 100 ML BAG EPIDURAL (18:17)
--- NOTE | 2023-04-25 18:27 | PN_ITS ---
Progress Note getting comfortable with epidural current tracing: FHT: 135 Moderate variability reactive no decelerations category I tracing [place]: 2-3 minutes Contractions Membranes: ruptured remains clear SVE:490/-1 A/P: Continue with position changes Titrate pitocin per protocol Epidural per anesthesia PCN for GBS prophylaxis Anticipate Dr Malik aware of above assessment and agrees with plan of care Assessment & Plan Assessment/Plan (1) Encounter for induction of labor: (2) Positive GBS test: (3) Supervision of high-risk : QUALIFIERS: Trimester: second trimester Qualified Code(s): O09.92 - Supervision of high risk , unspecified, second trimester (4) : QUALIFIERS: Weeks of gestation: 37 weeks Qualified Code(s): Z3A.37 - 37 weeks gestation of (5) Bipolar II disorder: (6) IUFD at 20 weeks or more of gestation: (7) Asthmatic bronchitis with exacerbation: (8) Borderline personality disorder: (9) Asthma: QUALIFIERS: Asthma severity: severe Asthma persistence: persistent Asthma complication type: uncomplicated Qualified Code(s): J45.50 - Severe persistent asthma, uncomplicated (10) Depression: QUALIFIERS: Depression Type: major depressive disorder Major depression recurrence: recurrent Active/Remission status: in partial remission Qualified Code(s): F33.41 - Major depressive disorder, recurrent, in partial remission Multi Select Codes Urinary/Genital Urinary/Genital CPT Codes: No Charge
[2023-04-25] MEDS: 0.9% Saline Lock 10 ML Syringe IV (20:15)
[2023-04-25] MEDS: Lactated Ringers 1,000 ML 200 ML IV (20:25)
[2023-04-25] MEDS: Oxytocin 15 Units/NS 250ml 15 UNITS/250 ML IV.SOLN 83 UNITS IV (20:55)
--- NOTE | 2023-04-25 21:13 | OP.PCM_ITS ---
Assessment & Plan (1) Vaginal delivery: COMMENT: KW IOL 39.0 girl [place] (2) Encounter for induction of labor: COMMENT: pitocin/AROM planned (3) Positive GBS test: COMMENT: PCN in labor (4) Supervision of high-risk : QUALIFIERS: Trimester: second trimester Qualified Code(s): O09.92 - Supervision of high risk , unspecified, second trimester COMMENT: PRR MISSY 05/02/2023 girl [place] PC:Scooter Neal Viola(IUFD at 20 weeks) boyfriend: Garcia(his first child) (5) : QUALIFIERS: Weeks of gestation: 37 weeks Qualified Code(s): Z3A.37 - 37 weeks gestation of COMMENT: slr NIPT, declined carrier, afp. anatomy reviewed. (6) Bipolar II disorder: (7) IUFD at 20 weeks or more of gestation: COMMENT: oligo seen at time of evaluation. measuring 22 weeks [place] weekly nsts from 32 on (8) Asthmatic bronchitis with exacerbation: (9) Borderline personality disorder: (10) Asthma: QUALIFIERS: Asthma severity: severe Asthma persistence: persistent Asthma complication type: uncomplicated Qualified Code(s): J45.50 - Severe persistent asthma, uncomplicated COMMENT: INHALERS USED (11) Depression: QUALIFIERS: Depression Type: major depressive disorder Major depression recurrence: recurrent Active/Remission status: in partial remission Qualified Code(s): F33.41 - Major depressive disorder, recurrent, in partial remission COMMENT: counseling weekly. neli Mendoza Maternal Data Information MISSY Calculator Estimated Delivery Date Method Current WG Current Estimate 05/02/23 Ultrasound #1 39w 0d Other Estimates 04/08/23 LMP (Certain) 42w 3d Final MISSY: 05/02/23 Final MISSY Source: US >20 weeks Gestational age: 39.0 Vaginal Delivery Maternal Presentation Maternal Presentation: Elective Induction Maternal Presentation: Progressed well to 10cm dilated and made steady progress with effective maternal pushing. Delivered the head in [place] presentation. The head was delivered atraumatically and no nuchal cord was identified. The anterior and posterior shoulders delivered after 12 seconds. Parveen and Suprapubic pressure used and anterior shoulder immediately delivered followed by the rest of the and the was placed on the maternal abdomen. Dr Malik on unit for another patient and was in room immediately after . Delayed cord clamping was employed for approximately 30 seconds. Cord was clamped and cut and gentle traction was applied to the cord and the placenta delivered spontaneously. Immediately following, it was noted to be intact with a 3 vessel cord. The perineum and vagina were inspected and noted to have no laceration. EBL was 100cc. Patient and tolerated delivery well. Apgars 8/9. Dr Malik notified of vaginal delivery and orders reviewed. Physician agrees with current plan of care. Type of Induction: Pitocin Operative Information Date of Procedure: 04/25/23 Pre-Operative Diagnosis: See AP comments Post-Operative Diagnosis: Same Surgery / Procedure Performed: Spontaneous Vaginal Delivery historical archeologist #1: Ayla Lux Type of Anesthesia: Epidural Estimated Blood Loss: 100 Time of Delivery: 20:45 Findings Presentation: Vertex Amniotic Membrane Rupture Type: Artificial Amniotic Fluid Description: Clear Placental Delivery Description: Spontaneous Placenta Disposition: [facility] Cord Vessel Description: 3 Vessels Cord Entanglement: None Cord Gases: ABG and VBG Infant A Gender: Female (1 minute): 8 (5 minute): 9 Delayed Cord Clamping: Yes Post Vaginal Delivery Medications Given After Delivery: IV Pitocin Episiotomy Description: None Laceration: None Complication Complications: None Multi Select Codes Urinary/Genital Urinary/Genital CPT Codes: 72987 Vaginal Delivery+ PP Care([facility])
[2023-04-26] VITALS (10 sets, daily range): BP systolic 128–134; BP diastolic 76–86; PULSE 85–97; RESP 16; TEMP 36.2–36.9; O2SAT 93–99
[2023-04-26] MEDS: Ibuprofen 600 MG Tablet PO ×3 (06:16→21:48)
[2023-04-26] MEDS: Acetaminophen 500 MG Tablet 1000 MG PO (06:16)
--- NOTE | 2023-04-26 07:54 | PN.OBGYN_ITS ---
Subjective Subjective Patient doing well without complaints. Tolerating PO. Ambulating and voiding without difficulty. Feeding well. Denies chest pain, shortness of breath, calf pain/swelling, fevers, chills, lightheadedness. Objective Data Objective Data Vital Signs: Vital Signs Temp Pulse Resp BP Pulse Ox O2 Del Method 97.1 F L 87 16 129/85 H 96 Room Air 04/26/23 03:09 04/26/23 03:09 04/26/23 03:09 04/26/23 03:09 04/26/23 03:09 04/26/23 03:09 Oxygen Delivery Method Room Air Weight: 214 lb 4 oz Body Mass Index (BMI) 36.8 Intake & Output: Intake and Output for Last 24 Hours 04/24/23 04/25/23 04/26/23 23:59 23:59 23:59 Intake Total 3259.17 / 3259.17 Output Total 1450 / 1450 200 / 200 Balance 1809.17 / 1809.17 -200 / -200 Lab / Micro Data 04/25/23 07:55 Labs: Laboratory Results - last 24 hr 04/25/23 07:55: WBC 10.6, RBC 4.02 L, Hgb 12.5, Hct 37.8, MCV 94.0, MCH 31.1, MCHC 33.1, RDW Std Deviation 45.7 H, RDW Coeff of Win 13.4, Plt Count 164, MPV 12.2 H, Immature Gran % (Auto) 0.700, Neut % (Auto) 72.5 H, Lymph % (Auto) 16.3 L, Lipscomb % (Auto) 9.7, Eos % (Auto) 0.6, Baso % (Auto) 0.2, Absolute Neuts (auto) 7.7, Absolute Lymphs (auto) 1.72, Nucleated RBC % 0, Syphilis Total Ab Non- reactive, Blood Type AB POSITIVE, Antibody Screen NEGATIVE Physical Exam Const alert and oriented x3 HEENT normocephalic Eyes PERRL Neck full ROM Resp normal respiratory effort GI soft to palpation GI Narrative: FF below U Assessment & Plan (1) Vaginal delivery: COMMENT: KW IOL 39.0 girl [place] (2) Bipolar II disorder: (3) Asthmatic bronchitis with exacerbation: QUALIFIERS: Asthma severity: mild Asthma persistence: intermittent Qualified Code(s): J45.21 - Mild intermittent asthma with (acute) exacerbation (4) Borderline personality disorder: (5) Asthma: QUALIFIERS: Asthma severity: severe Asthma persistence: persistent Asthma complication type: uncomplicated Qualified Code(s): J45.50 - Severe persistent asthma, uncomplicated COMMENT: INHALERS USED (6) Depression: QUALIFIERS: Depression Type: major depressive disorder Major depression recurrence: recurrent Active/Remission status: in partial remission Qualified Code(s): F33.41 - Major depressive disorder, recurrent, in partial remission COMMENT: counseling weekly. neli Mendoza (7) Contraception management: QUALIFIERS: Contraceptive encounter type: other general counseling and advice Qualified Code(s): Z30.09 - Encounter for other general counseling and advice on contraception COMMENT: plans pp BS PLAN: Plan s/p PPD # 1 1. routine post delivery care 2. breast feeding- support given 3. rh positive 4. rubella immune
[2023-04-26] MEDS: Loratadine 10 MG Tablet PO (09:31)
[2023-04-26] MEDS: Ferrous Sulfate 325 MG Tablet PO ×2 (09:31→21:44)
[2023-04-26] MEDS: Escitalopram Oxalate 10 MG Tablet PO (09:31)
[2023-04-26] MEDS: Pantoprazole Sodium 40 MG Tablet PO ×2 (09:32→21:45)
[2023-04-26] MEDS: QUEtiapine 100 MG Tablet PO (21:44)
[2023-04-26] MEDS: Prazosin HCl 1 MG Capsule 2 MG PO (21:44)
[2023-04-26] MEDS: QUEtiapine 25 MG Tablet PO (21:48)
[2023-04-27 02:07] VITALS: BP 116/75; PULSE 83; PULSE 88; PULSE 94; RESP 16; O2SAT 96; O2SAT 97
--- NOTE | 2023-04-27 07:54 | PCM.PN.OB ---
Subjective Subjective Patient doing well without complaints. Tolerating PO. Ambulating and voiding without difficulty. Feeding well. Denies chest pain, shortness of breath, calf pain/swelling, fevers, chills, lightheadedness. Objective Data Objective Data Vital Signs: Vital Signs Temp Pulse Resp BP Pulse Ox O2 Del Method 98.5 F 88 16 116/75 97 Room Air 04/26/23 21:21 04/27/23 02:07 04/27/23 02:07 04/27/23 02:07 04/27/23 02:07 04/27/23 02:07 Oxygen Delivery Method Room Air Weight: 214 lb 4 oz Body Mass Index (BMI) 36.8 Intake & Output: Intake and Output for Last 24 Hours 04/25/23 04/26/23 04/27/23 23:59 23:59 23:59 Intake Total 3259.17 / 3259.17 Output Total 1450 / 1450 200 / 200 Balance 1809.17 / 1809.17 -200 / -200 Lab / Micro Data 04/25/23 07:55 Physical Exam Const alert and oriented x3 HEENT normocephalic Eyes PERRL Neck full ROM Resp normal respiratory effort GI soft to palpation GI Narrative: FF below U Assessment & Plan (1) Vaginal delivery: COMMENT: KW IOL 39.0 girl [place] (2) Contraception management: QUALIFIERS: Contraceptive encounter type: other general counseling and advice Qualified Code(s): Z30.09 - Encounter for other general counseling and advice on contraception COMMENT: plans pp BS/SM Title 19 signed 04/26/23 (3) Bipolar II disorder: (4) Asthmatic bronchitis with exacerbation: QUALIFIERS: Asthma severity: mild Asthma persistence: intermittent Qualified Code(s): J45.21 - Mild intermittent asthma with (acute) exacerbation (5) Borderline personality disorder: (6) Asthma: QUALIFIERS: Asthma severity: severe Asthma persistence: persistent Asthma complication type: uncomplicated Qualified Code(s): J45.50 - Severe persistent asthma, uncomplicated COMMENT: INHALERS USED (7) Depression: QUALIFIERS: Depression Type: major depressive disorder Major depression recurrence: recurrent Active/Remission status: in partial remission Qualified Code(s): F33.41 - Major depressive disorder, recurrent, in partial remission COMMENT: counseling weekly. neli Mendoza PLAN: Plan s/p PPD # 2 1. routine post delivery care 2. breast feeding- support given 3. rh positive 4. rubella immune 5. home today
[2023-04-27 09:45] VITALS: BP 116/70; PULSE 105; RESP 14; TEMP 36.6; O2SAT 95
[2023-04-27 10:09] VITALS: BP 116/70; PULSE 101; PULSE 109; O2SAT 95
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
== END 2023-04-27 11:30 | disposition home or self-care (01) | DRG 560 ==
PROVIDERS: Admitting Provider Registered Nurse; PCP Student in an Organized Health Care Education/Training Program; Referring Provider Advanced Practice Midwife; Visit Provider Advanced Practice Midwife
DX: O99.824 Streptococcus B carrier state complicating childbirth (principal); Z37.0 Single live birth; J45.21 Mild intermittent asthma with (acute) exacerbation; F31.81 Bipolar II disorder; F60.3 Borderline personality disorder; O99.52 Diseases of the respiratory system complicating childbirth; O99.344 Other mental disorders complicating childbirth; F41.1 Generalized anxiety disorder; Z3A.39 39 weeks gestation of pregnancy; O26.23 Pregnancy care for patient with recurrent pregnancy loss, third trimester; B95.1 Streptococcus, group B, as the cause of diseases classified elsewhere
CPT/HCPCS: 59025; 59050; 85025; 86780; 86850; 86900; 86901; 99221; J7120; A4216; G0378; J2405

== ENCOUNTER 2023-06-20 10:45 | Day surgery (SDC) | payer MEDICAID, SELFPAY ==
[2023-06-20] VITALS (8 sets, daily range): BP systolic 102–128; BP diastolic 66–84; PULSE 68–84; RESP 16–18; TEMP 36–36.7; O2SAT 91–100; BMI 32.9
--- NOTE | 2023-06-20 07:11 | PCM.HP.BLA ---
History and Physical Vital Signs 05/09/2410:07 06/07/2413:57 06/07/2414:00 Height 5 ft 4 in 5 ft 4 in 5 ft 4 in Weight: 191 lb BMI 32.8 32.8 BP 120/81 H 120/81 H Intake Visit Reasons: visit (obstetrics) Allergies COVID-19 vaccine, mRNA, [id number], Allergy (Severe, Verified 06/08/23 14:58) Anaphylaxisprochlorperazine maleate [From Compazine] Allergy (Severe, Verified 06/08/23 14:58) Anaphylaxisbee venom protein (honey bee) Allergy (Verified 06/08/23 14:58) Anaphylaxisomalizumab [From Xolair] Allergy (Verified 06/08/23 14:58) Anaphylaxisprochlorperazine edisylate [From Compazine] Allergy (Verified 06/08/23 14:58) Swelling Medications albuterol sulfate 90 mcg/actuation aerosol inhaler 1 puff inhalation Q4H PRN PRN Asthma 08/17/17 [History Confirmed 06/08/23] epinephrine 0.3 mg/0.3 mL injection, auto-injector 0.3 mg IM DAILY PRN Allergies 08/17/17 [History Confirmed 06/08/23] fexofenadine 180 mg tablet 180 mg PO DAILY Check with primary doctor 06/25/19 [History Confirmed 06/08/23] pantoprazole 40 mg tablet,delayed release 40 mg PO BID Check with primary doctor 02/08/21 [History Confirmed 06/08/23] ipratropium bromide 21 mcg (0.03 %) nasal spray 2 spray intranasal BID Check with primary doctor 03/11/21 [History Confirmed 06/08/23] ferrous sulfate 325 mg (65 mg iron) tablet 325 mg PO BID anemia 02/23/22 [History Confirmed 06/08/23] vitamin with calcium no.72-iron 27 mg-folic acid 1 mg tablet ( Vitamins Plus Low Iron) 1 tab PO DAILY 03/01/22 [History Confirmed 06/08/23] metoclopramide HCl 10 mg tablet 10 mg PO 4X/DAY PRN Headache #20 tabs 09/09/22 [Rx Confirmed 06/08/23] fluticasone propionate 50 mcg/actuation nasal spray,suspension 1 spray intranasal BID asthma 04/25/23 [History Confirmed 06/08/23] prazosin 2 mg capsule 2 mg PO QHS sleep #30 caps 05/09/23 [Rx Confirmed 06/08/23] quetiapine 100 mg tablet 100 mg PO QHS bipolar #30 tabs 05/09/23 [Rx Confirmed 06/08/23] quetiapine 25 mg tablet 25 mg PO QHS bipolar #30 tabs 05/09/23 [Rx Confirmed 06/08/23] escitalopram oxalate 20 mg tablet 10 mg PO DAILY mood disorder 06/08/23 [History] levonorgestrel 1.5 mg tablet (Plan B One-Step) 1.5 mg PO ONCE #1 TAB 06/08/23 [Rx Confirmed 06/08/23] PFSH Medical History (Updated 06/08/23 @ 15:[address] Svitlana Malik MD) Allergic rhinitis Anxiety Asthma Asthmatic bronchitis with exacerbation Bipolar 1 disorder, mixed, severe Borderline personality disorder Chronic cough Daytime hypersomnia Depression Vopicabbrg-tjmgozb-qaawwzrax (DTP) vaccination Gastric reflux Generalized anxiety disorder History of IBS History of steroid therapy IBS (irritable bowel syndrome) IUFD at 20 weeks or more of gestation Liver disease Low-lying placenta in second trimester Non-smoker Pelvic pain Posterior auricular lymphadenopathy care and examination depression hemorrhage PTSD (post-traumatic stress disorder) Suicide attempt Vaginal delivery Vestibular migraine Wears contact lenses Wears glasses Surgical History Hx of colonoscopy Hx of dilation and curettage Family History Brother AsthmaMother Hypertension Heart diseaseFather Depression Heart disease Hyperlipidemia Hypertension Social History household members: family current occupational status: unemployed pets and animals: Yes Smoking Status: Never smoker second hand exposure: No alcohol intake: never substance use type: does not use seatbelt use: always do you feel safe at home: Yes additional social history: BF Garcia History 4 Elective abortions Hx Para 2 Spontaneous abortions 1 Hx # Term Pregnancies Ectopic pregnancies Hx # Pregnancies Multiple births # of living children 3 Past Pregnancies Del. Date Name GA/Weeks Outcome Route Bth Weight Gen Labor Lgth Anesthesia Del Locatn Provider FOB 04/18/14 [place] 41 live - full term 7lbs 7oz Female 9 hours epidural Rebeccamelita Sanderson 08/17/17 [place] 41 live - full term 8lbs 8oz Male 4 hours epidural [facility] Dr. Sanderson 07/05/21 [place] 24 still SM 04/25/23 [place] 39 live - full term 8#8 Female epidural [facility] Ayla Zelaya Delivery Date: 04/18/14 Last Updated by: Yuli Soares no complications Delivery Date: 08/17/17 Last Updated by: Yuli Castorena in the Delivery Date: 07/05/21 Last Updated by: Svitlana Malik MD nl NIPT, demise discovered at routine visit, oligohydramnios seen. neg APL and torch titers. Delivery Date: 04/25/23 Last Updated by: Dilia Aly see problem list for complications, and KW IOL 39.0 Girl [place] Depression Screen PHQ-2/9 PHQ-2 Over the last 2 weeks, how often have you been bothered by any of the following problems? 1. Little interest or pleasure in doing things: not at all 2. Feeling down, depressed, or hopeless: not at all Total score: 0 Post HPI Routine Follow-Up: Details: LEIDY WILCOX is a 27 year old who presents for her post visit. plan hcg day of surgery, ordered plan b also Feeding: Breast Menses resumed: Yes [place] since delivery: Yes Emotional Support: No Last Pap:: 2021 ROS Const Reports system reviewed and no additional complaints, except as documented GI Reports system reviewed and no additional complaints, except as documented, Denies bloating, Denies constipation, Denies nausea and Denies vomiting Reports system reviewed and no additional complaints, except as documented, Denies abnormal vaginal bleeding, Denies pelvic pain, Denies sexual dysfunction, Denies urinary incontinence, Denies urinary hesitancy, Denies urinary urgency and Denies vaginal discharge Skin/Breast Reports system reviewed and no additional complaints, except as documented and Reports as per HPI Psych Reports as per HPI Exam Const General: cooperative, healthy appearing, comfortable and no acute distress HENMT Head: normal to inspection Neck Neck: normal visual inspection and no lymphadenopathy Thyroid: thyroid normal Chest Breast inspection: normal inspection of the breasts and normal inspection of the axillae Breast palpation: normal palpation of the breasts and normal palpation of the axillae Resp Effort & Inspection: normal respiratory effort GI Inspection: normal to inspection Palpation: soft, no hepatosplenomegaly and nontender General: bladder normal to palpation External Female Exam: normal external appearance and normal appearance of the urethra Urethra: normal appearance of the urethra Speculum Exam - Vagina: normal appearance of the vagina and normal vaginal discharge Speculum Exam - Cervix: normal appearance of the cervix Bimanual Exam- Vagina & Uterus: normal bimanual exam, uterine size normal, bladder normal to palpation, uterine shape normal and non-tender Bimanual Exam- Adnexa, other: normal adnexae and normal Pelvic Support: normal Skin General: no rashes or lesions noted Coding Level of Care Code No Charge Diagnoses Routine Follow-Up Z39.2 Encounter for other general counseling or advice on contraception Z30.09 Contraceptive encounter type: other general counseling and advice Vaginal delivery O80 care and examination Z39.2 Recurrent major depressive disorder, in partial remission F33.41 Active/Remission status: in partial remission Depression Type: major depressive disorder Major depression recurrence: recurrent Assessment and Plan Assessment and Plan (1) Routine Follow-Up: (2) Contraception management: Status: Acute Qualifiers: Contraceptive encounter type: other general counseling and advice Qualified Code(s): Z30.09 - Encounter for other general counseling and advice on contraception Comment: plans pp BS/SM Title 19 signed 04/26/23 (3) Vaginal delivery: Status: Acute Comment: KW IOL 39.0 girl [place] (4) care and examination: Status: Acute (5) Depression: Status: Acute Qualifiers: Active/Remission status: in partial remission Depression Type: major depressive disorder Major depression recurrence: recurrent Qualified Code(s): F33.41 - Major depressive disorder, recurrent, in partial remission Comment: counseling weekly. Lexapro, seraquil Medications: New levonorgestrel (Plan B One-Step) as a single dose 1.5 mg PO ONCE 1 TAB 0RF Plan After discussing the patient's diagnosis and treatment plan options, patient wishes to proceed with surgical management. I have discussed with the patient the risks, benefits, and alternatives of the procedure which include but are not limited to risks of anesthesia, bleeding, infection, possible damage to bowel, bladder, or surrounding vasculature which could lead to additional surgery to evaluate any complications. Patient agrees to procedure and wishes to proceed. ACOG/uptodate references given for additional information regarding procedure.
[2023-06-20] MEDS: Lactated Ringers 1,000 ML 15 ML IV ×2 (11:15→13:53)
[2023-06-20 11:25] LABS: Hematocrit 41.5 % (37-47); Hemoglobin 13.4 g/dL (12.0-15.0); Mean Corp Hgb Conc 32.3 g/dL (32-36); Mean Corpuscular Hgb 30.2 pg (27.0-32.0); Mean Corpuscular Volume 93.7 fL (81-99); Mean Platelet Vol. 10.6 fl (6.2-12.0); Platelet Count 285 K/mm3 (150-450); RBC Distribution Width CV 13.2 % (11.6-14.6); RBC Distribution Width SD 46.1 fl (35.1-43.9); Red Blood Count 4.43 M/mm3 (4.2-5.4); White Blood Count 7.9 K/mm3 (4.4-11.0)
[2023-06-20 11:31] LABS: Internal QC Validated? YES +Cl - CLEAR BKGD; Pregnancy, Serum, hCG Quali. NEGATIVE Negative
--- NOTE | 2023-06-20 12:10 | FALS_PTH ---
PATIENT: LEIDY WILCOX LOC: [facility] U#:[id number] AGE/SX: 27/F ROOM: RE06/20/[address]: Dr. Svitlana Malik MD : 1995 BED: DIS: 06/20/2023 SPEC #: [id number] RECD: 06/20/23 16:03 STATUS: UBALDO BUENO #: [id number] DINO: 06/20/23 12:[address]: Svitlana Malik DEPT: SURGICAL PATHOLOGY RECD BY: Bella Whelan ENTERED: 06/21/23 08:45 SP TYPE: FALL TUBES OTHR DR: Dr. Evelio Hernandez, DO Tissues: Fallopian tube Procedures: Surgery Specimen Level IV HEADER OPERATION: Laparoscopic, Salpingectomy PRE-OP DIAGNOSIS: Contraceptive management TISSUE SUBMITTED: Bilateral fallopian tubes MICROSCOPIC DIAGNOSIS Bilateral fallopian tubes, salpingectomy; Bilateral fallopian tubes with focal mild chronic inflammation. Bilateral paratubal cysts. SJ/mr 06/22/2023 COMMENT Case has been reviewed in consultation with Dr. Kinsey who concurs with the above diagnosis. IDC:AM MICROSCOPIC DESCRIPTION Slides are reviewed. GROSS DESCRIPTION Received in fixative is one container labeled with the patient's name and designated bilateral fallopian tubes. The specimen consists of bilateral fallopian tubes including fimbrial ends measuring 8.0 cm in length and 0.5 cm in diameter and 6.5 cm in length and 0.5 cm in diameter. A detached piece of fallopian tube was also noted measuring 2.2 cm in length and 0.3 cm in diameter. Both fallopian tubes show paratubal cysts measuring 1.0 x 1.2 cm in greatest dimension. The fallopian tubes are not identified as right or left. Sections reveal unremarkable cut surfaces. Import Coordinator sections are submitted in two cassettes as follows: 1 - one fallopian tube and adjacent paratubal cyst, 2 - second fallopian tube and adjacent paratubal cyst and detached segment of fallopian tube / SJ:mr 06/21/23 TC:3 CPT: 28051m2
[2023-06-20] MEDS: Bupivacaine 0.25% 30 ML Vial (12:50)
--- NOTE | 2023-06-20 14:21 | DCINST_ITS ---
Discharge Instructions Diet Discharge Diet: No restrictions Activity Discharge Activity: Return to Normal Activity, May Not Drive (for 2 weeks or while taking narcotic pain meds.), May Shower and May Take a Tub Bath (in 7 days) May resume sexual activity in: 1 week Weight Bearing Status: Full weight bearing Dressing / Incision Call your doctor if your incision/area has: Continuous Slow Oozing, Sudden Increased Bleeding, Increased Pain/ Swelling, Increased Redness and Foul Smelling Discharge Call your doctor if you observe: Fever of 101 or Higher, Using more than 1 pad per hour, Shortness of breath, Chest pain and Uncontrolled pain Suture Line Care: Avoid Pulling/Pushing and Avoid Pinching/Bending Remove Dressing in: 1 week (if present) Cleanse incision/area with: Soap & Water and Keep Dressing Clean & Dry Follow Up Care When: Call to make an appointment with your doctor for a fu/incision check in 1- 2 weeks. Test Results: Test results from this visit will be discussed in further detail at your follow- up appointment, if applicable. Discharge Plan Admission Attending Provider: Svitlana Malik Primary Care Provider: Evelio Hernandez Discharge Orders/Prescriptions Prescriptions: New oxycodone-acetaminophen [Percocet] 5-325 mg tablet 1 tab PO Q6H PRN (Reason: pain) 7 Days Qty: 10 0RF No Action fexofenadine 180 mg tablet 180 mg PO DAILY ipratropium bromide 21 mcg (0.03 %) spray,non-aerosol 2 spray intranasal BID PRN (Reason: Check with primary doctor) Rx Instructions: administer into each nostril prazosin 2 mg capsule 2 mg PO QHS Qty: 30 2RF quetiapine 25 mg tablet 25 mg PO QHS Qty: 30 2RF Rx Instructions: To be taken with with 100 mg tablet for nightly dose of 125 mg quetiapine 100 mg tablet 100 mg PO QHS Qty: 30 2RF Rx Instructions: To be taken with with 25 mg tablet for nightly dose of 125 mg escitalopram oxalate 20 mg tablet 20 mg PO DAILY levonorgestrel [Plan B One-Step] 1.5 mg tablet 1.5 mg PO ONCE Qty: 1 0RF Rx Instructions: as a single dose epinephrine 0.3 MG syringe 0.3 mg IM DAILY PRN (Reason: Allergies) albuterol sulfate 1 INHALER inhaler 1 puff inhalation Q4H PRN PRN (Reason: Asthma) pantoprazole 40 mg tablet,delayed release (DR/EC) 40 mg PO BID ferrous sulfate 325 mg (65 mg iron) Tablet 325 mg PO BID fluticasone propionate 50 mcg/actuation spray,suspension 1 spray INTRANASAL BID PRN (Reason: asthma) Referrals / Follow Up: Evelio Hernandez DO [Primary Care Provider] - Disposition Disposition (needs filled in before D/C Order can be placed): Home, Self Care
--- NOTE | 2023-06-20 14:21 | PCM.OPRPT ---
Problems Associated Problem List Diagnoses (1) Contraception management: (2) Status post bilateral salpingectomy: Report of Operation Date of Procedure: 06/20/23 Pre-Operative Diagnosis: see problem list Post-Operative Diagnosis: same Surgery/Procedure Performed:: laparoscopic bilateral salpingectomy Description of Surgical Findings:: nl uterus tubes ovaries Surgeon: Svitlana Malik call center dispatcher: Emy Horton Type of Anesthesia: General and Local Specimen's removed: tubes Drains: none Estimated Blood Loss (mL): 50 Fluids Replaced: crystalloid Description of Procedure: Patient was taken in the operating room and was placed under general anesthesia was prepped and draped in normal sterile fashion in the dorsal lithotomy position. Bladder was drained of clear urine and SCDs were on preoperatively. Uterus was sounded and a uterine manipulator was placed after dilating. Attention was then paid to the abdominal portion of the procedure and the umbilicus was elevated with towel clamps and injected with Marcaine and after a 5 mm incision was made and the Veress needle was entered into the abdomen confirmed to be intra-abdominal with a low opening pressure of less than 5 mmHg. Abdomen was insufflated with CO2 gas and a 5 mm optical trocar was placed under direct visualization. A 5 mm port suprapubically was placed under direct visualization. Uterus was well visualized and bilateral fallopian tubes identified and bilateral tubes were elevated and transecting across the mesosalpinx and the attachment to the uterine corpus bilaterally the tubes were removed without complication. Excellent hemostasis was noted. Fallopian tubes were removed through the lower port site without complication. Liver and upper abdomen were visualized notably within normal limits and no other gross abnormalities were seen in the abdomen. All instruments removed from the abdomen after gas was desufflated. Port sites were closed with 3-0 Monocryl Steri's and op sites were applied. All instruments removed from the vagina and patient was awoken and taken recovery in stable condition. Grafts/Implants Used: none Procedure Start Time: 12:11 Procedure Stop Time: 13:18 Complications none Admit VTE Documentation VTE Present on Admission: No VTE Mechan Device Prophylaxis: SCD's Multi Select Codes Urinary/Genital Urinary/Genital CPT Codes: 09115 Laproscopic BS/O
== END 2023-06-20 16:27 | disposition home or self-care (01) ==
LOC: SDC 10:47 → AC 10:48
PROVIDERS: PCP Student in an Organized Health Care Education/Training Program; Referring Provider Obstetrics & Gynecology; Visit Provider Obstetrics & Gynecology
PROC: (CPT 58661; principal; 2023-06-20 11:55)
DX: Z39.2 Encounter for routine postpartum follow-up (principal); F33.41 Major depressive disorder, recurrent, in partial remission; F60.3 Borderline personality disorder; F41.1 Generalized anxiety disorder; J45.909 Unspecified asthma, uncomplicated; Z30.09 Encounter for other general counseling and advice on contraception
CPT/HCPCS: 58661; 00840; 88302; 84703; 85027; 86850; 86900; 86901; 88305; J7120; J2405

== ENCOUNTER 2024-06-13 08:00 | Outpatient (RCR) | payer MEDICAID, SELFPAY ==
--- NOTE | 2024-06-13 08:57 | BH.MTP ---
Master Treatment Plan Patient Information Program Physician:: Svitlana Yin Primary Therapist:: KELLY Montilla Psychiatric Diagnoses Psychiatric Diagnoses:: 1. Bipolar 2 disorder 2. Borderline personality disorder 3. Generalized anxiety disorder 4. PTSD 5. Primary support issues Diagnosis Code(s):: F31.81 Estimated LOS Estimated LOS (in weeks):: 6 Problem/Goal #1 Problem/Goal #1 Stated Goal:: Pt will decrease depressive symptoms, irritability, worthlessness, negative self-talk, and suicidal ideations Description of Barriers: Hx of poor distress tolerance, limited support, current unhealthy relationship causing distress, hx of mood instability, hx of PTSD causing distress impacting functioning. Functional Impact: Pt was referred to [facility] by her outpatient therapist at [facility] ([place]) due to worsening depression and suicidal thoughts. According to pt she wrote a suicide note 2 weeks ago. She disclosed this to her therapist and after safety-planning agreed to return to [facility] level of care. Long-standing fleeting suicidal thoughts and previous attempts. Hx of self-injurious behaviors with most recent yesterday (cut self with razor in [facility] parking lot). Objectives Objective #1: Stated Objective: Pt will learn and utilize 2-3 healthy coping strategies to better manage depressive symptoms and irritability, as well as reduce thoughts of as shown by a decrease of DMS-5 symptoms for depression. Interventions: Through group and individual sessions, therapist will help pt identify triggers and warning signs of depression and guilt including emotional, physical, and behavioral changes. Therapist will teach pt various coping skills to manage symptoms and give pt tangible resources to use to regulate emotions. Therapist will use cognitive restructuring techniques and help pt gain awareness of negative thoughts that reinforce guilt and depression. Therapist will provide psychoeducation on maintenance cycles and help pt learn ways to break unhealthy maintenance cycles. Therapist will help pt incorporate behavioral activation and assist pt in setting SMART goals. Discharge Criteria: Pt will have met this goal when can report learning and using at least 2 coping skills to manage depressive symptoms and reduce irritability. Additionally, pt will have met this goal when pt's DSM-5 scores for depression and irritability decrease. Target Date: 07/26/24 Review Date: 07/10/24 Objective #2: Stated Objective: Client will identify 2-3 cognitive distortions that lead to mood dysregulation and learn 2-3 ways to manage these thoughts to improve mood stability AEB reduction in DSM-5 scores for irritability and depression. Interventions: Therapist will assist client in identifying, challenging, and replacing dysfunctional thoughts with positive, more realistic thoughts. Therapist will use CBT and DBT techniques to help client gain awareness of thinking errors and learn how to more effectively handle negative thoughts that reinforce unhealthy coping skills. Discharge Criteria: Pt will be able to identify and challenge at least 2 distortions leading to mood dysregulation, as well as implement healthy means of managing associated emotions, Per pt report and reduction in DSM-5 sx. Target Date: 07/26/24 Review Date: 07/10/24 Problem/Goal #2 Problem/Goal #2 Stated Goal:: Client will increase emotional regulation and reduce intensity and duration of anxiety symptoms AEB reduction in anxiety domain on the DSM-V cross cutting scale. Description of Barriers: Hx of poor distress tolerance, limited support, current unhealthy relationship causing distress, hx of mood instability, hx of PTSD causing distress impacting functioning. Functional Impact: Pt was referred to [facility] by her outpatient therapist at [facility] ([place]) due to worsening depression and suicidal thoughts. According to pt she wrote a suicide note 2 weeks ago. She disclosed this to her therapist and after safety-planning agreed to return to [facility] level of care. Long-standing fleeting suicidal thoughts and previous attempts. Hx of self-injurious behaviors with most recent yesterday (cut self with razor in [facility] parking lot). Objectives Objective #1: Stated Objective: Client will learn and implement 2-3 calming skills to reduce overall anxiety and manage anxiety Interventions: Through individual and group counseling will help client increase awareness of anxiety triggers and educate client on the ways anxiety impacts overall health. Therapist will teach client various calming and mindfulness strategies to promote emotional regulation and reduction of anxiety. Therapist will encourage client to implement healthy coping skills on a regular basis. Therapist will help client apply group concepts to help client better understand self, as well as cope with everyday challenges and struggles. Therapist will also help client be more articulate and expressive so they can communicate with family and friends when decompensating. Discharge Criteria: Learn and implement 2-3 anxiety coping strategies. Show a reduction on the DSM-V anxiety domain scale. Target Date: 07/26/24 Review Date: 07/10/24
--- NOTE | 2024-06-13 10:15 | BH.SGPN.GN ---
Behaviors/Verbalizations/Mental Status: [] Eye contact is good. Motor activity is appropriate. Appearance is casual. Speech is Appropriate. Mood is anxious and depressed. Affect is congruent. Thoughts are linear and logical. No evidence of psychosis Client Response/Progress/Benefit: [] Pt engaged in session AEB listening attentively to others, however did not participate in group discussions. Pt engaged in activity, able to connect how it can be uncomfortable and difficult to practice acceptance when situations are out of one?s own control. Attentive as peers defined acceptance and identified the benefits that acceptance can bring. Benefits included; reduce stuckness, reduced stress, helps one to focus on situations we can change, and decreased negative self-talk. Seemed to benefit from increased awareness of the meaning as well as the importance of acceptance. Will continue in IOP to prevent decompensation, stabilize mood, maintain safety, and improve functioning. Narrative Note: []
--- NOTE | 2024-06-13 11:05 | BH.MDN_ITS ---
Multi-Disciplinary Note Note 45-min Individual: Time Started:: 08:40 Date: 06/13/24 Purpose of session/treatment goals addressed:: Purpose of session was to gather updated information on pt mental health and background since last admission, assess current symptoms, and began to develop goals for IOP. Eye Contact:: Good Motor Activity:: Appropriate and Restless Appearance:: Casual Speech:: Appropriate Mood:: Depressed Affect:: Congruent Thoughts:: Linear, Logical and No evidence of hallucinations/delusions noted Staff Interventions:: motivational interviewing, CBT techniques, strengths perspective, treatment planning and completed risk assessment / safety planning (CSSR-S) Client Response:: Pt last completed IOP tx in December 2022. Reports that since then she had been doing well for a while and began working weekends at [employer], which she is continuing to do. Pt reports that in April of 2023 she gave to her daughter and the child?s father moved in with her at that time. Noted that since he moved in her mental health has gradually gotten more difficult to manage. Noted that the relationship is not healthy and they struggle with healthy communication, boundaries, and regular conflict. Pt noted that she takes on the childcare responsibilities as her boyfriend refuses. Noted that he has struggled to connect with their new child and becomes easily upset or jealous when pt give the children attention. Noted that since her boyfriend moved in she has become more isolated as he does not like it when pt hangs out with friends or texts other people. Noted that she has tried to end the relationship on multiple occasions but has struggled to maintain this boundary out of guilt or hope that this tie things will change. Noted that he has also made comments to pt that his mental health would decline and she would be resp onsible if she left him. Pt able to rationally recognize she is not responsible for his emotional health if she set a boundary, but struggles to believe this in the moment. Noted that recently she has set a boundary that he only stay with her -Monday in order to give herself more space. Shared that her depression has been worsening over the past 6 months and she shared with her outpatient counselor plans to overdose when in session 2 weeks ago, resulting in recommendation she return to IOP tx. Noted that she does not actually want to , she just does not want to feel overwhelmed like she has. Feels happier and calmer over the weekend when boyfriend is not there. Wants to work on improving self-confidence, self-advocacy, and mood stability. Risks/Concerns:: Pt denies any current active suicidal ideations, plan, or intent since last reported 2 weeks ago. Passive thoughts of not caring if something happened to her. Contracts for safety. Protective factors reported. Future-oriented. Does report recent self-harming via cutting arm, last yesterday. Progress Toward Goals/Plan:: Limited progress as this was pt's first day in the program. Hopeful and excited for the additional support of the IOP program. Reports high levels of motivation to make progress in better understanding and managing her mental health sx. Actively engaged in counselling and part-time work which is a protective factor. Endorses hopelessness, guilt, mood instability, racing thoughts, crying spells, as well as a recent suicidal ideation resulting in recommended return to IOP level of care. Time Stopped:: 09:25
--- NOTE | 2024-06-13 11:15 | BH.SGPN.GN ---
Behaviors/Verbalizations/Mental Status: []Pt alert and oriented, casually dressed and groomed. Eye contact fair. Motor activity appropriate. Speech within normal limits. Affect congruent, mood adepressed. Thoughts linear, logical, no signs of hallucinations or delusions. Client Response/Progress/Benefit: [] Pt responded well to session AEB taking notes and contributing to discussion throughout. Pt engaged as group continued discussion on acceptance and the mental health benefits of practicing acceptance. Pt and peers identified what makes acceptance challenging and pt completed a self-reflection exercise on what is hard to accept in pt's life. Pt identified something that is currently hard to accept for her as her relationship being unhealthy. Client stated by not accepting this it leads to confusion, fear, sadness, and shutting down. Group identified strategies to increase acceptance. Pt noted wanting to work onb setting better boundaries as a strategy for improving acceptance in this area. Pt appeared to benefit from gaining insight and learning strategies to increase acceptance. Pt will continue IOP tx to improve view of self, increase mood stability, and prevent decompensation. Narrative Note: []
--- NOTE | 2024-06-14 09:00 | BH.SGPN.GN ---
Behaviors/Verbalizations/Mental Status: [] Client alert and oriented, casual appearance. Eye contact fair. Motor activity appropriate. Speech within normal limits. Affect constricted, mood depressed. Thoughts linear, logical, no signs of hallucinations or delusions. Reviewed client's symptom tracker, client indicates chronic suicidal ideation but denies suicide intent or plan. Client has removed all unnecessary medications from her house and has removed sharp objects. Client notes ability to keep herself safe. Client did not advise protective factors. Client does not appear to be an imminent risk to harm self or others. Client Response/Progress/Benefit: [] Client responded well to session AEB listening to others and sharing thoughts/feelings. Client reported mental positive is turning in all her blades to staff to help decrease her use of unhealthy coping skill of self-harm. Client stated additional mental positive is turning in all her medications as well that she does not need to decrease access to lethal means. Client noted engaging in these decisions is best for her mental health and safety. Client noted current stressor as relationship with her boyfriend because she often puts her down which reinforces negative thought patterns and depression. Appeared to benefit from support from peers. Will continue IOP tx to improve view of self, improve distress tolerance, and improved boundary setting. Narrative Note: []
--- NOTE | 2024-06-14 10:10 | BH.SGPN.GN ---
Behaviors/Verbalizations/Mental Status: [] Eye contact is good. Motor activity is appropriate. Appearance is casual. Speech is Appropriate. Mood is depressed. Affect is congruent. Thoughts are linear and logical. No evidence of psychosis. Client Response/Progress/Benefit: [] Pt engaged participant AEB listening to others, engaging in activity, and providing feedback throughout. Attentive during psychoeducation and provided insight into obstacles that impede mental wellness. Pt shared with group current mental health reality and desired mental health reality. Identified barriers to desired reality. Benefited from taking look at current mental health state and obstacles for progress. Pt to continue IOP tx to prevent decompensation, maintain safety, stabilize mood, and improve functioning. Narrative Note: []
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
--- NOTE | 2024-06-14 11:05 | BH.MDN_ITS ---
Multi-Disciplinary Note Note 60-min Individual: Time Started:: 11:05 Date: 06/14/24 Purpose of session/treatment goals addressed:: Update psychosocial hx from 2022. Risk assessment. Eye Contact:: Good Motor Activity:: Appropriate Appearance:: Casual Speech:: Appropriate Mood:: Depressed Affect:: Other (somewhat incongruent affect as she would smile when discussing suicidal ideations, previous attempts, and mental health struggles. ) Thoughts:: Linear, Logical and No evidence of hallucinations/delusions noted Staff Interventions:: completed risk assessment / safety planning and other (psychosocial assessment update) Client Response:: Pt discussed recent decompensation which led to admission to [facility] level of care. Pt reports her emotions were up and down for the previous 3 weeks. Fleeting suicidal ideations and self-injurious behaviors (cutting self) for the previous 3 weeks as well. Disclosed to her therapist two weeks ago that she was writing a suicide letter and had plans to overdose. Denied intent. Safety planned and was recommended to attend [facility]. I asked for help before I spiraled this time. In the past has attended [facility] after a suicide attempt. Last self-injurious behaviors was this AM. Reports that she cuts to feel and not be numb. Also believes it to be a distraction and better alternative than killing myself as she smiles. Long-standing hx of self- injurious behaviors and fleeting SI. Denies active suicidal ideations, plan, or intent at this moment however admits that SI comes and goes throughout the day based on situational stressors or negative automatic thoughts. Currently experiencing struggles with romantic relationship and father of her 1 year old son. Protective factors are her children. Future-oriented (Talked about work this weekend, spending time with kids this weekend, this program, and getting better). Reports ability to keep herself safe. No access to guns. She brought in her unused medications and razor blades to [facility] staff today. Reviewed her plan for the weekend which includes work (which she enjoys) and spending this evening and Monday with her kids. Reviewed daily tracker and her suicidal ideations are lower than yesterday. Has safety plan. Smiling and joking with staff throughout the session. Remarks that IOP was beneficial to her in the past and is hopeful. Identified goal as getting back to baseline, support, and trying not to spiral. Risks/Concerns:: Does not present as imminent danger to herself. Long- standing high risk due to impulsivity, trauma triggers, and unhealthy relationship which will continue to be assessed on daily basis in IOP. Despite risk she denied active SI, plan, or intent. She also voluntarily gave IOP staff her unused medications and her razor blades for cutting. Optimistic about IOP and was future-oriented and able to identify protective factors. Plan for this weekend in which she was spend majority of time with her children I would never do anything with my kids around. She also states she would not complete suicide unless a very specific plan was in place for the future of her children which there is currently none. Aware of crisis numbers and ER if SI escalates. Progress Toward Goals/Plan:: Consistent and engaged in IOP for the past two days. In the past two days she has voluntarily handed in her unused medications and razor blades. According to patient this is the first time she sought out help prior to an attempt indicating insight and awareness as well as hope that IOP will be beneficial. Time Stopped:: 12:00
--- NOTE | 2024-06-18 10:15 | BH.SGPN.GN ---
Behaviors/Verbalizations/Mental Status: [] Eye contact is good. Motor activity is appropriate. Appearance is casual. Speech is Appropriate. Mood is anxious and depressed. Affect is congruent. Thoughts are linear and logical. No evidence of psychosis. Client Response/Progress/Benefit: [] Pt was an active participant in group discussions. Attentive during psychoeducation on the 4 communication styles (Passive, Passive-Aggressive, Aggressive, and Assertive) and the obstacles to effective communication. Contributed during interactive discussion on the benefits of communicating effectively. Worked well with peers to identify the benefits and disadvantages to the different communication styles and connected this to her own life and relationships. Benefited from increased understanding of communication styles and how these can impact effective communication. Will continue in IOP to prevent decompensation, reduce negative thinking patterns, promote boundary setting, and improve daily functioning. Narrative Note: []
--- NOTE | 2024-06-18 10:55 | BH.MDN ---
Multi-Disciplinary Note Note 60-min Individual: Time Started:: 09:05 Date: 06/18/24 Purpose of session/treatment goals addressed:: Purpose of session was to review components of healthy vs. unhealthy relationships and aid pt in identifying the impacts of her current relationship on her mental health. Eye Contact:: Good Motor Activity:: Appropriate Appearance:: Casual Speech:: Appropriate Mood:: Anxious and Depressed Affect:: Congruent Thoughts:: Linear, Logical and No evidence of hallucinations/delusions noted Staff Interventions:: thought challenging, motivational interviewing, psychoeducation on: (boundary setting), CBT techniques, strengths perspective and completed risk assessment / safety planning Client Response:: Pt responded well to session, open to meeting with therapist. Pt reported she has found the IOP program to be a good refresher of her skills so far and is benefiting from supportive group environment. Pt notes that she has no supports outside of [facility] as her boyfriend has become more protective in the past year and reports he ?gets jealous? when pt spends time with anyone other than him. Shared that this includes when spending time with her children and noted that he has a very difficult time connecting with their 1-year-old daughter. Pt reports that as the relationship continues to struggle, she feels ?more exhausted? and as though life is ?too hard?. With further discussion, pt did report that her mood and sense of hope are improved on the days that her boyfriend does not come over. Shared that during those time she feels less like she is ?walking on eggshells? and able to be present with the children. Pt noted guilt, shame, and feeling she is a failure for believing that the relationship could be healthy. Did well to work with therapist on thought challenging and applying a self-compassionate lens to her current situation. Pt provided insight that she did not knowingly enter into an unhealthy relationship. Noted that she could not have predicted that her partner would not respond as expected to becoming a parent when prior to their child?s he had reported excitement and the promise of involvement. Pt expressed guilt for not ending the relationship sooner; however, struggles with complicated emotions regarding their relationship. Noted that at times he is kind, caring, and supportive while other instances pt feels she cannot do anything right and they are in constant conflict. Did indicate attempting to end the relationship several months ago but was unable to maintain this boundary. Pt reports a desire to slowly begin to implement firmer boundaries as she does not feel ready to make the decision to end the relationship but feels it is not healthy for her or the children in it?s current state. Identified a goal to communicate to her boyfriend that she would like him to only stay over 3 days rather than 4 for the time being. Did well to identify strategies for maintaining this boundary once communicated as well. Risks/Concerns:: Pt denies active SI, plan, or intent. Does report passive thoughts of /not caring if she did not wake up; however, pt's children are a major protective factor. Reports self-harming last night but was able to avoid engaging in urges for 4 days prior to doing so which is progress for pt. Reports no benefit from this which may serve as a deterrent for continued self-harm behaviors. Progress Toward Goals/Plan:: Some progress noted, though limited. Pt 3rd day in IOP tx so limited change made. However she does report the supportive environment to be particularly helpful and is gaining more confidence in herself. Pt noted beginning to recognize things contributing to recent decline in mental health and influx in depressive sx and SI. Pt stated feeling trapped in her relationship and guilty for being in it to begin with. Considerable amounts of inappropriate guilt and self-blame maintaining depression and feelings of helplessness. Does note willingness to begin making changes via establishing and reinforcing boundaries, as well as getting back into self-care behaviors she has neglected recently. Plans to play piano this afternoon. Recommended continued IOP tx to improve confidence, maintain safety, and prevent decompensation. Time Stopped:: 10:10
--- NOTE | 2024-06-18 11:15 | BH.SGPN.GN ---
Behaviors/Verbalizations/Mental Status: []Pt alert and oriented, casually dressed and groomed. Eye contact fair. Motor activity appropriate. Speech within normal limits. Affect congruent, mood dysthymic. Thoughts linear, logical, no signs of hallucinations or delusions. Client Response/Progress/Benefit: [] Pt responded well to session AEB Pt listening attentively to others and providing input during group discussion on the pay offs and costs of the different communication styles. Pt able to connect how current communication style impacts mental health. Connected with peers? comments about importance of using assertive communication. Pt seemed to benefit from increasing awareness of healthy strategies to improve communication. Client engaged in practicing use of assertive communication. Will continue IOP tx to improve distress tolerance, increase healthy coping skills, and prevent decompensation.
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
[2024-06-20 09:50] VITALS: BP 131/86; PULSE 79
--- NOTE | 2024-06-20 10:15 | BH.SGPN.GN ---
Behaviors/Verbalizations/Mental Status: [] Pt alert and oriented, casually dressed and groomed. Eye contact good. Motor activity appropriate. Speech within normal limits. Affect congruent, mood anxious and dysthymic. Thoughts linear, logical, no signs of hallucinations or delusions. Client Response/Progress/Benefit: [] Pt participated at times in group discussions. Attentive during psychoeducation on the CBT [place] (Thoughts, Behaviors, Emotions). Engaged in group discussion on how thoughts and behaviors can contribute to maintaining adverse feelings, such as depression, anxiety, and irritability. Completed worksheet in which pt identified obstacles and/or thoughts that are keeping them stuck. Shared obstacles that included; negative self-talk, shutting down, fear of being alone. Pt benefited from increased awareness of the basis of CBT therapy as well as specific thoughts that are impacting pt's progress. Will continue in IOP to prevent decompensation, maintain safety, increase healthy coping, and improve functioning. Narrative Note: []
--- NOTE | 2024-06-20 11:15 | BH.SGPN.GN ---
Behaviors/Verbalizations/Mental Status: []Pt alert and oriented, casually dressed and groomed. Eye contact good. Motor activity appropriate. Speech within normal limits. Affect congruent, mood depressed and anxious. Thoughts linear, logical, no signs of hallucinations or delusions. Client Response/Progress/Benefit: [] Pt responded well to session, contributing to discussion and attentive throughout. Pt identified a negative thought that has kept them stuck. Pt's thought was I am too much? Pt reported when they think this way, pt isolates, hides her true self, and overcompensates. Pt worked to reframe the thought by finding more rational, realistic ways to look at the thoughts and then processed them within group setting. Pt reframed the thought to ?Emotions are a normal and necessary part of all of us.? Pt appeared to benefit from practicing challenging negative thinking with peers and gaining coping skills. Pt will continue IOP tx to promote mood stability, increase thought challenging, and further increase boundary setting. Narrative Note: []
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
--- NOTE | 2024-06-21 09:05 | BH.SGPN.GN ---
Behaviors/Verbalizations/Mental Status: [] Eye contact is good. Motor activity is appropriate. Appearance is casual. Speech is Appropriate. Mood is dysthymic. Affect is congruent. Thoughts are linear and logical. No evidence of psychosis. Reviewed daily check in sheet and pt reports 2/5 for suicidal thoughts and 2/5 for intent. Long-standing suicidal ideations with methods. Scores are at baseline. Client Response/Progress/Benefit: [] Pt was an active participant in group discussions. Attentive. Daily symptom tracker notes 4/5 for depression/anxiety and 4/5 for self-harm urges. SI-2 IN-2. She was able to identify a few mental health wins and healthy habits. Tells the group ? my boyfriend is spiraling?. Shared that BF is struggling with mental health issues and she is fearful that this will impact her. In the past ? he would pull me down?. Insight and reports that she is ?trying not to get caught up in in?. Limited progress. She reports beginning to set boundaries regarding the relationship. Benefited from group support, encouragement, and feedback. Will continue in IOP to maintain safety, stabilize mood, and improve functioning. Narrative Note: []
--- NOTE | 2024-06-21 10:15 | BH.SGPN.GN ---
Behaviors/Verbalizations/Mental Status: []Pt alert and oriented, casually dressed and groomed. Eye contact good. Motor activity appropriate. Speech within normal limits. Affect congruent, mood depressed and anxious. Thoughts linear, logical, no signs of hallucinations or delusions. Client Response/Progress/Benefit: []Pt was an active participant in group discussion and activity. Attentive during psychoeducation. Along with peers, pt was able to identify barriers to taking action in their life. Identified several symptoms and stressors that pt feels are holding them back from progress such as poor boundaries, lack of communication of needs, and negative self-talk. Stated these things have kept pt from loving and advocating for herself. Pt shared that she wants to begin addressing negative self-talk. Benefited from increased self-awareness of obstacles. Will continue IOP tx to improve mood stability, promote consistent skill application, and further improve self-confidence. Narrative Note: []
--- NOTE | 2024-06-21 11:10 | BH.SGPN.GN ---
Behaviors/Verbalizations/Mental Status: []Pt alert and oriented, casually dressed and groomed. Eye contact fair. Motor activity appropriate. Speech within normal limits. Affect congruent, mood dysthymic. Thoughts linear, logical, no signs of hallucinations or delusions. Client Response/Progress/Benefit: [] Pt responded well to session, taking notes and participating in worksheet discussion. Pt connected with the discussion on action steps, and this helped pt learn how to set goals differently. Pt set a SMART goal to create a list of boundaries that she needs/wants to have in relationships. Pt shared going to therapy and setting aside time to create list are things that will help her in accomplishing this goal. Appeared to benefit from identifying a small goal to benefit mental health. Pt is to continue IOP to improve distress tolerance, increase consistent use of healthy coping skills, and prevent decompensation.
--- NOTE | 2024-06-25 10:10 | BH.SGPN.GN ---
Behaviors/Verbalizations/Mental Status: [] Eye contact is good. Motor activity is appropriate. Appearance is casual. Speech is Appropriate. Mood is anxious and depressed. Affect is congruent. Thoughts are linear and logical. No evidence of psychosis. Client Response/Progress/Benefit: [] Pt was an active participant during group discussions and group activities. This portion of group was very psychoeducation heavy and pt was attentive during psychoeducation. Engaged during activity in which they identified which type of foods (i.e. carbs, sugar, salt, fast food, caffeine, etc) they seek out when sad, tired, angry, stressed, anxious, etc. Pt was able to identify the impact that certain foods have on their mental health through group example which was beneficial. Benefited from increased awareness of the connection between nutrition and mental health. Will continue in IOP to prevent decompensation, improve healthy coping and mood stability, and improve functioning. Narrative Note: []
--- NOTE | 2024-06-25 10:58 | BH.MDN_ITS ---
Multi-Disciplinary Note Note 45-min Individual: Time Started:: 08:15 Date: 06/25/24 Purpose of session/treatment goals addressed:: Purpose of session is to review pt recent boundary with boyfriend and reviewed skills to continue moving forward with healthy boundary setting. Eye Contact:: Good Motor Activity:: Appropriate Appearance:: Casual Speech:: Appropriate Mood:: Anxious and Depressed Affect:: Congruent Thoughts:: Linear, Logical and No evidence of hallucinations/delusions noted Staff Interventions:: thought challenging, motivational interviewing, psychoeducation on: (healthy boundaries), goal setting and other (DBT techniques) Client Response:: Pt open to discussion and engaged throughout. Described establishing the boundary of having her boyfriend reduce his weekly visits from 4 days to 3 days moving forward. Shared that he was willing to adhere to this boundary; however, pt described significant resistance in doing so. Pt reported that throughout the week he would bring this boundary up on several occasions, making comments that pt does not care about his needs or wants. Pt shared that she tried to validate his emotions but quickly became exhausted by continued reassurance seeking. Expressed guilt in experiencing feelings of relief when he left for the weekend, and she was alone with the children. Shared that the time away from him felt calm and emotionally safer than when he was visiting. Pt expressed feeling like she ?should? enjoy the time when they are together and became self-critical in discussing this. Receptive of challenging internal dialogue and further processing why she may be feeling this way. Able to identify that due to the current state of the relationship, it feels like more work and constant conflict than it does supportive and enjoyable. Use of dialects to recognize she can love her partner and know the relationship is no longer healthy. Expressed a desire to end the relationship but fears retaliation or ?hurting him?. Worked with therapist to create a plan of calling him to discuss needing space and not wanting him to stay over this week to prevent feeling unable to escape the discussion afterwards. Plans to do so today as he usually comes to visit on Tuesdays and pt believes the discussion would not end without continued reassurance seeking and resistance if in person. Pt plans to then think about what she would like to say prior to communicating a need to end the relationship. Reviewed self-care activities she can engage in prior and post conversation. Risks/Concerns:: None noted. Pt denies active SI, plan, or intent as of this date. Progress Toward Goals/Plan:: Some progress noted. Pt reports advocating for her needs by communicating a need for a long weekend with just the children. Reports significant difficulties in challenging inappropriate guilt and personalization related to her boyfriend's responses to her needs. Pt shared trying to use several self-care skills in his absence, though continues to struggle with consistently doing so when he is present. Reports wanting to move forwards with establishing firmer boundaries and ultimately ending the relationship. Recommended continued IOP tx to improve mood stability, self- compassion, and prevent decompensation. Time Stopped:: 09:00
--- NOTE | 2024-06-25 11:15 | BH.SGPN.GN ---
Behaviors/Verbalizations/Mental Status: []Pt alert and oriented, neatly dressed and groomed. Eye contact good. Motor activity appropriate. Speech within normal limits. Affect congruent, mood euthymic and anxious. Thoughts linear, logical, no signs of hallucinations or delusions. Client Response/Progress/Benefit: [] Pt was an active participant during group discussions and group activities. This portion of group was very psychoeducation heavy and pt was attentive during psychoeducation. Engaged during activity in which they identified their own maintenance cycles with food and how it impacts their mental health symptoms. Pt and peers identified barriers to breaking these cycles as well as ways to combat barriers. Pt stated one barrier pt has is turning to caffeine when she feels ?any emotion.? Pt shared she has worked on reducing her caffeine intake and she uses a soda stream now. Benefited from increased awareness of the connection between nutrition and mental health and from identifying strategies. Will continue in IOP to prevent use of unhealthy coping skills, improve daily functioning, and increase distress tolerance skills. Narrative Note: []
--- NOTE | 2024-06-27 09:00 | BH.SGPN.GN ---
Behaviors/Verbalizations/Mental Status: []Pt alert and oriented, neatly dressed and groomed. Eye contact good. Motor activity restless. Speech within normal limits. Affect flat, mood depressed. Thoughts linear, logical, no signs of hallucinations or delusions. Reviewed pt?s symptom tracker, no risk for suicidal ideation, plan, or intent 06/17/24. Client Response/Progress/Benefit: []Pt was an active participant in group discussions. Attentive. Able to identify mental health wins including getting to IOP today and not self-harming to cope with her distress. Pt's stressor today is I recently made a decision to break up with my boyfriend and I already went back on it. Pt stated feeling disconnected this morning and stated it took a lot to get to IOP today. Pt receptive to feedback and emotional support from peers which pt reported was helpful. Progress noted. Benefited from group support, encouragement, and feedback. Will continue in IOP to prevent decompensation, improve distress tolerance skills, and reduce negative thinking. Narrative Note: []
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
--- NOTE | 2024-06-27 10:15 | BH.SGPN.GN ---
Behaviors/Verbalizations/Mental Status: []Pt alert and oriented, casually dressed and groomed. Eye contact good. Motor activity appropriate. Speech within normal limits. Affect congruent, mood anxious and depressed. Thoughts linear, logical, no signs of hallucinations or delusions. Client Response/Progress/Benefit: [] Pt receptive to session AEB contributing to group discussion, as well as listening attentively to others, and taking notes. Worked with group to brainstorm the positive and negative aspects of stress on physical and mental health as well as the impact of distress on performance, relationships, and mental health. Pt shared their current personal top stressors to be: finances, interpersonal relationships, caregiving responsibilities, and managing her mental health. Shared when feeling overwhelmed with stress pt tends to shut down or self-harm. Benefited from increased awareness of positive and negative stress as well as how stress impact individuals. Will continue in IOP to prevent decompensation, increase distress tolerance, and improve dialectical thinking. Narrative Note: []
--- NOTE | 2024-06-27 11:15 | BH.SGPN.GN ---
Behaviors/Verbalizations/Mental Status: [] Pt alert and oriented, casually dressed and groomed. Eye contact good. Motor activity appropriate. Speech within normal limits. Affect congruent, mood depressed. Thoughts linear, logical, no signs of hallucinations or delusions. Client Response/Progress/Benefit: [] Pt receptive to session AEB contributing to group discussion, as well as listening attentively to others, and taking notes. Worked with group to brainstorm the positive and negative aspects of stress on physical and mental health as well as the impact of stress on performance, relationships, and mental health. Pt shared their top stressors to be: her relationship, her kids, and her health. Will work on accepting that the relationship is unhealthy and alter the stressor by changing the relationship status. Benefited from increased awareness of positive and negative stress as well as how stress impact individuals. Will continue in IOP to prevent decompensation, maintain safety, and increase healthy coping. Narrative Note: []
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
== END 2024-07-01 23:59 ==
LOC: BHIOP 08:00
PROVIDERS: PCP Student in an Organized Health Care Education/Training Program; Referring Provider Psychiatry & Neurology Psychiatry; Visit Provider Psychiatry & Neurology Psychiatry
DX: F31.81 Bipolar II disorder (principal); F60.3 Borderline personality disorder; F41.1 Generalized anxiety disorder; F43.10 Post-traumatic stress disorder, unspecified; Z79.899 Other long term (current) drug therapy
CPT/HCPCS: H2012; H2020; S9480; 90832; 90834; 90837

== ENCOUNTER 2024-06-28 09:31 | Emergency (ER) | payer MEDICAID, SELFPAY ==
[2024-06-28 09:32] VITALS: BP 142/88; PULSE 95; RESP 16; TEMP 36.6; O2SAT 100; BMI 30.9
--- NOTE | 2024-06-28 09:49 | EDS_ITS ---
HPI HPI - Psych History of Present Illness Chief Complaint: Mental Health Informant: patient Onset/Context/Timing Onset: Today Context: Sudden Onset Timing: Continuous Worsened by: Situational factors Relieved by: Nothing Associated Symptoms Associated Symptoms - Psych: Positive for Depressed; Negative for Paranoia, Visual Hallucinations or Auditory Hallucinations Narrative Narrative: Patient presents with left forearm laceration that occurred today. Patient cut herself. Patient states he did to try to relieve stress. Patient denies any suicidal or homicidal ideations at this time. Patient thinks her last tetanus was within the last 10 years. Patient is in the intensive outpatient program. Patient was referred to the emergency department because of the laceration. Patient admits to feeling depressed. Patient denies any visual or auditory hallucinations. Patient denies any paranoid ideations. [facility] Medical History Generalized anxiety disorder Bipolar II disorder Low iron Mother currently breast-feeding hemorrhage Liver disease depression Asthmatic bronchitis with exacerbation Bipolar 1 disorder, mixed, severe PTSD (post-traumatic stress disorder) Borderline personality disorder Suicide attempt [id number] (DTP) vaccination Daytime hypersomnia Pelvic pain Vaginal delivery IUFD at 20 weeks or more of gestation Low-lying placenta in second trimester Wears glasses Depression Anxiety History of IBS Gastric reflux Non-smoker Chronic cough Vestibular migraine IBS (irritable bowel syndrome) Asthma Allergic rhinitis Posterior auricular lymphadenopathy Home Medications ?Medication ?Instructions ?Recorded ?Last Taken ?Type albuterol sulfate 90 mcg/actuation 1 puff inhalation Q 4H PRN PRN 08/17/17 06/28/24 History aerosol inhaler Asthma epinephrine 0.3 mg/0.3 mL 0.3 mg IM DAILY PRN Allergie s 08/17/17 Unknown History injection, auto-injector fexofenadine 180 mg tablet 180 mg PO DAILY Check with primary 06/25/19 06/28/24 History doctor pantoprazole 40 mg tablet,delayed 40 mg PO BID Check w ith primary 02/08/21 06/28/24 History release doctor ipratropium bromide 21 mcg (0.03 2 spray intranasal BI D PRN Check 03/11/21 06/28/24 History %) nasal spray with primary doctor ferrous sulfate 325 mg (65 mg 325 mg PO BID anemia 04/24/23 22:00 History iron) tablet fluticasone propionate 50 1 spray intranasal BID PRN a sthma 04/25/23 04/25/23 06:00 History mcg/actuation nasal spray,suspension vitamin with calcium 1 tab PO QDAY 03/05/24 0 06/28/24 History no.72-iron 27 mg-folic acid 1 mg tablet ( Vitamins Plus Low Iron) vitamin E (dl, acetate) 180 mg mg PO QDAY 03/05/24 History (400 unit) capsule escitalopram oxalate 20 mg tablet 20 mg PO DAILY mood disorder #30 05/02/24 06/28/24 Rx tabs propranolol 10 mg tablet 10 mg PO TID PRN anxiety #90 tabs 05/02/24 06/28/24 Rx quetiapine 50 mg tablet (Seroquel) 150 mg (3 x 50 mg) PO QHS 30 days 06/20/24 06/28/24 Rx #90 tabs Allergy/AdvReac Type Severity Reaction Status Date / Time COVID-19 vaccine, mRNA, Allergy Severe Anaphylaxis Verified 06/28/24 09:36 [id number], prochlorperazine maleate Allergy Severe Anaphylaxis Verified 06/28/24 09:36 (From Compazine) bee venom protein (honey bee) Allergy Anaphylaxis Verified 06/28/24 09:36 omalizumab (From Xolair) Allergy Anaphylaxis Verified 06/28/24 09:36 prochlorperazine edisylate Allergy Swelling Verified 06/28/24 09:36 (From Compazine) Family History Brother Asthma Mother Hypertension Heart disease Father Depression Heart disease Hyperlipidemia Hypertension Surgical History Status post bilateral salpingectomy Hx of external ear surgery Hx of colonoscopy Hx of dilation and curettage Social History household members: family current occupational status: unemployed pets and animals: Yes Smoking Status: Never smoker second hand exposure: No alcohol intake: never substance use type: does not use seatbelt use: always do you feel safe at home: Yes additional social history: BF Garcia ROS ROS ED Constitutional Constitutional ED: Denies chills or fever(s) Eyes Eyes: Denies blurry vision or change in vision ENT ENT ED: Denies rhinorrhea or sore throat Cardiovascular Cardiovascular: Denies chest pain or palpitations Respiratory/Chest Respiratory/Chest: Denies cough or dyspnea Gastrointestinal Gastrointestinal: Denies nausea or vomiting Genitourinary Genitourinary ED: Denies dysuria or hematuria Musculoskeletal Musculoskeletal: Denies back pain or neck pain Integumentary Denies abscess or rash Neurologic Neurologic: Denies headache(s) or weakness Psychiatric Psychiatric: Reports depression Allergic/Immunologic Allergic/Immunologic ED: Denies mouth swelling or urticaria EXAM Physical Exam Const Vital Signs: 06/28/24 09:32 Temperature 98 F Temperature Source Oral Pulse Rate 95 Respiratory Rate 16 Blood Pressure 142/88 H Blood Pressure Mean 106 Pulse Ox 100 Oxygen Delivery Method Room Air Positive well nourished and well developed General Appearance ED: well developed and NAD HEENT Reports moist mucous membranes normocephalic and atraumatic Neck supple and no JVD Resp normal respiratory effort and clear to auscultation bilaterally Cardio Rate: regular rate Rhythm: regular rhythm GI non-tender and non-distended Neuro oriented x3, CN's II-XII intact bilaterally and no sensory deficits noted Alexei Coma Scale: document GCS findings Spontaneous Obeys Commands Oriented 15 Sensorium / Orientation: alert Motor Exam: strength 5/5 throughout Psych cooperative Appearance: grossly normal Attitude: calm Activity / Motor Behavior: appropriate eye contact Speech: normal speech Mood & Affect: depressed and flat affect Thought Content: No suicidality, No homicidality, No delusion(s) and No hallucination(s) Skin Skin Narrative: There is a 12 cm laceration over the volar aspect of the left forearm. Laceration extends into the dermis. There is mild gapping of the wound margins. There is no active bleeding noted. There is no erythema. There is full range of motion. Sensation was intact to light touch in the radial, median, and ulnar areas. Strength is 5/5 in the radial, median, and ulnar areas. Radial pulses are equal bilaterally. MDM MDM MDM Narrative Medical decision making narrative: Medical screening labs will be obtained. CBC will be obtained to assess for leukocytosis and anemia. Basic metabolic profile will be obtained to assess for electrolyte abnormality and renal function. Serum hCG will be obtained to assess for . Serum alcohol level will be obtained to assess for alcohol intoxication. Urine drug screen will be obtained to assess for substance abuse. Lab Data Attestation: I reviewed the patient's lab results. Lab results narrative: CBC was reviewed and was within normal limits. Basic metabolic profile was reviewed and was within normal limits. Serum hCG was reviewed and was negative. Urine tox screen was reviewed and was negative. Serum alcohol level was reviewed and was less than 10.1. Labs: Laboratory Results - last 24 hr 06/28/24 06/28/24 10:10 10:27 WBC 7.1 RBC 4.52 Hgb 14.6 Hct 42.0 MCV 92.9 MCH 32.3 H MCHC 34.8 RDW Std Deviation 42.5 RDW Coeff of Win 12.2 Plt Count 276 MPV 10.9 Immature Gran % (Auto) 0.300 Neut % (Auto) 64.6 Lymph % (Auto) 25.5 Cavalier % (Auto) 8.1 Eos % (Auto) 0.8 Baso % (Auto) 0.7 Absolute Neuts (auto) 4.6 Absolute Lymphs (auto) 1.82 Nucleated RBC % 0 Sodium 140 Potassium 4.0 Chloride 105 Carbon Dioxide 20.2 L Anion Gap 15 BUN 10 Creatinine 0.67 L Estim Creat Clear Calc 128.07 Est GFR (MDRD) Non-Af 121 BUN/Creatinine Ratio 14.3 Glucose 85 Calcium 8.5 Serum , Qual NEGATIVE Urine Opiates Screen NEGATIVE U Buprenorphine Qual NEGATIVE Ur Oxycodone Screen NEGATIVE Urine Methadone Screen NEGATIVE Urine Fentanyl Screen NEGATIVE Ur Barbiturates Screen NEGATIVE Ur Phencyclidine Scrn NEGATIVE Ur Amphetamines Screen NEGATIVE U Benzodiazepines Scrn NEGATIVE Urine Cocaine Screen NEGATIVE U Cannabinoids Screen NEGATIVE Ethyl Alcohol < 10.1 Treatment and Re-Evaluation Narrative: The wound was cleaned and irrigated with copious amounts normal saline. The wound was closed with Dermabond skin adhesive. Patient tolerated procedure well. Patient was advised of her findings. field crop ii farmworker was in to evaluate the patient. She discussed the case with patient's IOP program. They feel the patient is safe for discharge home and will follow-up with the IOP program. Patient understands and is agreeable with the plan. Patient was advised to refrain from using bacitracin, Neosporin, or other Vaseline-based ointments to her forearm. Patient was instructed to keep it clean and dry. Patient was instructed to return if worse in any way. Patient understood and was agreeable with the plan. All questions were answered. Procedures Lacerations Left forearm: Length: 12 cm Depth: Sub Q Shape: Linear Prep: Sterile Conditions and Chlorhexadine Laceration repair: Dermabond, Irrigated and Wound explored Discharge Plan Triage Chief Complaint: Mental Health ED Provider: Layton Higgins Dx/Rx/DC Orders Clinical Impression: Depression, Suicide gesture, Laceration of left forearm Instructions: ED Depression, ED Laceration, Extremity: Skin Glue Prescriptions: No Action fexofenadine 180 mg tablet 180 mg PO DAILY ipratropium bromide 21 mcg (0.03 %) spray,non-aerosol 2 spray intranasal BID PRN (Reason: Check with primary doctor) Rx Instructions: administer into each nostril vitamin E (dl, acetate) 180 mg (400 unit) capsule PO QDAY Vitamin Plus Low Iron 27 mg iron- 1 mg tablet 1 tab PO QDAY escitalopram oxalate 20 mg tablet 20 mg PO DAILY Qty: 30 2RF propranolol 10 mg tablet 10 mg PO TID PRN (Reason: anxiety) Qty: 90 1RF epinephrine 0.3 MG syringe 0.3 mg IM DAILY PRN (Reason: Allergies) albuterol sulfate 1 INHALER inhaler 1 puff inhalation Q4H PRN PRN (Reason: Asthma) pantoprazole 40 mg tablet,delayed release (DR/EC) 40 mg PO BID ferrous sulfate 325 mg (65 mg iron) Tablet 325 mg PO BID fluticasone propionate 50 mcg/actuation spray,suspension 1 spray INTRANASAL BID PRN (Reason: asthma) quetiapine [Seroquel] 50 mg tablet 150 mg PO QHS 30 Days Qty: 90 1RF Primary Care Provider: Evelio Hernandez Referrals: Evelio Hernandez DO [Primary Care Provider] - 5-7 Days Print Language: Indonesian Disposition Disposition: Home, Self Care
--- NOTE | 2024-06-28 10:02 | ED.RN ---
Per Dr Higgins, no sitter needed at this time. We will do mental health workup and she will see social science professor.
[2024-06-28 10:42] LABS: Absolute Lymphocyte Count 1.82 X10^3/uL (0.83-4.51); Absolute Neutrophil Count 4.6 X10^3/uL (2.0-7.7); Basophil# 0.05 X10^3/uL; Basophil% 0.7 % (0-1); Eosinophil# 0.06 X10^3/uL; Eosinophils% 0.8 % (0-5); Hemoglobin 14.6 g/dL (12.0-15.0); Lymphocyte # 1.82 X10^3/ul (0.83-4.51); Lymphocyte % 25.5 % (19-41); Mean Corp Hgb Conc 34.8 g/dL (32-36); Mean Corpuscular Hgb 32.3 pg (27.0-32.0); Mean Corpuscular Volume 92.9 fL (81-99); Mean Platelet Vol. 10.9 fl (6.2-12.0); Monocyte# 0.58 X10^3/uL; Monocyte% 8.1 % (0-10); NRBC Flagged by Analyzer 0 % (0-5); Neutrophil % 64.6 % (47-70); Platelet Count 276 K/mm3 (150-450); RBC Distribution Width CV 12.2 % (11.6-14.6); RBC Distribution Width SD 42.5 fl (35.1-43.9); Red Blood Count 4.52 M/mm3 (4.2-5.4); White Blood Count 7.1 K/mm3 (4.4-11.0)
[2024-06-28 11:00] LABS: Internal QC Validated? YES +Cl - CLEAR BKGD; Pregnancy, Serum, hCG Quali. NEGATIVE Negative
[2024-06-28 11:02] LABS: Amphetamine Urine NEGATIVE (<1000 ng/mL); Barbiturate Urine NEGATIVE (< 200 ng/mL); Benzodiazepine Urine NEGATIVE (< 200 ng/mL); Buprenorphine Urine NEGATIVE (< 200 ng/mL); Cocaine Urine NEGATIVE (< 300 ng/mL); Fentanyl, Urine NEGATIVE; Methadone Urine NEGATIVE (< 300 ng/mL); Opiates Urine NEGATIVE (< 300 ng/mL); Oxycodone, Urine NEGATIVE (< 100 ng/mL); PCP Urine NEGATIVE (< 25 ng/mL); THC Urine NEGATIVE (< 50 ng/mL)
[2024-06-28 11:02] LABS: Alcohol, Blood (Medical)-Serum < 10.1 mg/dL (<=10.0)
[2024-06-28 11:14] LABS: Anion Gap 15 (5-15); BUN 10 mg/dL (4-19); BUN/Creat Ratio 14.3 RATIO (10-20); Calcium,Total 8.5 mg/dL (7.6-11.0); Carbon Dioxide 20.2 mmol/L (21.0-32.0); Chloride 105 mmol/L (98-108); Creatinine, Serum 0.67 mg/dL (0.70-1.20); EST Glomerular Filtration Rate 121 (>60); Estimated Creatinine Clearance 128.07 ml/min (50-250); Glucose 85 mg/dL (70-99); Sodium Level 140 mmol/L (133-145)
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
--- NOTE | 2024-06-28 12:50 | CM.ED ---
Social work 1015: KERRY called [facility] and spoke with patient's therapist Nicole. Nicole stated patient is active in IOP currently and is well known to [facility]. Patient presented today with a self-inflicted wound to patient's left arm and Nicole reported patient willingly giving up the blade to [facility] staff. Per Nicole, patient had no active plan or intent for suicide and [facility] sent patient to have patient's arm addressed prior to returning to [facility] for IOP today. 1105: KERRY called [facility] back and spoke with Maddie after assessing patient. Updated Maddie with patient statements confirming what Nicole had stated to this SW earlier on the phone. Maddie requested this SW call back when patient was ready to return and [facility] staff would walk with patient back to [facility]. Evita WELLS updated with request. 1245: Evita WELLS and Dr Higgins told patient was ready to return. This SW called [facility] and spoke with Nicole who stated ability to send a [facility] staff member to come walk with patient back to [facility]. Evita WELLS updated. Alissa Dykes, LABEL MAKER, [employer] DEVELOPER
== END 2024-06-28 12:59 | disposition home or self-care (01) ==
PROVIDERS: Emergency Provider Emergency Medicine; PCP Student in an Organized Health Care Education/Training Program; Visit Provider Emergency Medicine
DX: S51.812A Laceration without foreign body of left forearm, initial encounter (principal); F31.81 Bipolar II disorder; X78.9XXA Intentional self-harm by unspecified sharp object, initial encounter; K21.9 Gastro-esophageal reflux disease without esophagitis; Z79.899 Other long term (current) drug therapy; J45.909 Unspecified asthma, uncomplicated; Z79.51 Long term (current) use of inhaled steroids; F41.9 Anxiety disorder, unspecified
CPT/HCPCS: 36415; 80048; 80307; 82077; 84703; 85025; 99285

== ENCOUNTER 2024-07-02 07:09 | Outpatient (RCR) | payer MEDICAID, SELFPAY ==
[2024-07-02 00:34] VITALS: BP 131/86; PULSE 79
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
--- NOTE | 2024-07-02 11:10 | BH.SGPN.GN ---
Behaviors/Verbalizations/Mental Status: []Client alert and oriented, casually dressed and groomed. Eye contact good. Motor activity appropriate. Speech within normal limits. Affect congruent, mood anxious. Thoughts linear, logical, no signs of hallucinations or delusions. Client Response/Progress/Benefit: [] Pt participated throughout AEB contributing to discussion, providing examples, and taking notes. Pt provided input during discussion on the types of support our supports can provide. Pt able to identify current support system and barriers that get in the way of using supports. Pt reported after identifying what type of supports pt receives, pt gained awareness that pt could benefit from more tangible support. Pt shared she often will try to do tasks on her own instead of asking for help which she recognizes makes things harder for herself. Pt seemed to benefit from identifying the type of support pt needs to work on improving. Pt recommended to continue IOP tx to promote mood stability, reduce negative thinking patterns, and improve daily functioning.
--- NOTE | 2024-07-04 09:05 | BH.SGPN.GN ---
Behaviors/Verbalizations/Mental Status: [] Eye contact is good. Motor activity is appropriate. Appearance is casual. Speech is Appropriate. Mood is depressed. Affect is congruent. Thoughts are linear and logical. No evidence of psychosis. Reviewed daily check in sheet and pt reports 2/5 for suicidal ideations and 2/5 for intent. This has been pt's baseline. Client Response/Progress/Benefit: [] Pt was an active participant in group discussion. Attentive. Daily symptom tracker notes 4/5 for depression and 3/5 for anxiety/ self-harm urges. Pt was able to identify mental health wins and healthy habits. She went shopping with her daughter and made dinner. She talked mostly about ? breaking up? with her BF. Admits that she has struggled to find and maintain a healthy relationship which has led to thoughts that she is a ?failure? for her children. Also reported numerous other negative automatic thoughts about herself in regarding to past relationships and ?choices?. Group did well to reframe and provide support which was beneficial. Progress noted as she set boundary. Will continue in IOP to maintain safety, prevent decompensation, and increase healthy coping Narrative Note: []
--- NOTE | 2024-07-04 10:15 | BH.SGPN.GN ---
Behaviors/Verbalizations/Mental Status: []Pt alert and oriented, neatly dressed and groomed. Eye contact good. Motor activity appropriate. Speech within normal limits. Affect congruent, mood stressed. Thoughts linear, logical, no signs of hallucinations or delusions. Client Response/Progress/Benefit: [] Pt was an active participate AEB listening attentively to others and contributing during group discussions, participating in activity, and taking notes throughout. Attentive and provided input as the group identified ways we can hurt others or sabotage self by not regulating our emotions. Participated with peers to identify ways emotions impact communication. Provided an example of shutting down and personalizing. Participated during group activity. Pt benefited from session by gaining an increased understanding on the importance of managing emotions to improve daily functioning. Will continue IOP tx to reduce self-sabotaging behaviors, improve daily functioning, and reduce negative self-talk. Narrative Note: []
--- NOTE | 2024-07-04 11:15 | BH.SGPN.GN ---
Behaviors/Verbalizations/Mental Status: [] Client alert and oriented, casually dressed and groomed. Eye contact good. Motor activity appropriate. Speech within normal limits. Affect congruent, mood anxious. Thoughts linear, logical, no signs of hallucinations or delusions. Client Response/Progress/Benefit: [] Client engaged in session AEB client listening attentively to peers and providing input. Attentive during psychoeducation on 4 zones of regulation. Pt able to identify feelings and behaviors for each zone. Pt identified coping skills one can use to support self in each zone. Pt stated belief that pt is in the yellow zone today. Pt reports plan to be productive with energy today, but also without burning herself out. Benefited from increased education on zones of regulation or stages of alertness for emotions and healthy coping skills to use for each zone. Pt will continue IOP tx to increase self-awareness, improve emotional regulation skills, and prevent decompensation. Narrative Note: []
--- NOTE | 2024-07-05 09:05 | BH.SGPN.GN ---
Behaviors/Verbalizations/Mental Status: [] Eye contact is good. Motor activity is appropriate. Appearance is casual. Speech is Appropriate. Mood is depression and anxiety. Affect is congruent. Thoughts are linear and logical. No evidence of psychosis. Reviewed daily check in sheet and she reports 2/5 for suicidal ideations and 1/5 for intent. This is lower than her baseline noting improvement. Client Response/Progress/Benefit: [] Pt was an active participant in group discussions. Daily symptom tracker notes 4/5 for depression and 3/5 for anxiety, agitation, and self-harm urges. Pt struggles to identify mental health wins and healthy habits. Significant psychosocial stressors which are impacting her mental health and functioning. Guilt brought on my perceived poor decision-making. Feeling ? indifferent?. Limited progress noted. Benefited from group support. Will continue in IOP to maintain safety, prevent decompensation, and increase healthy coping skills. Narrative Note: []
--- NOTE | 2024-07-05 10:10 | BH.SGPN.GN ---
Behaviors/Verbalizations/Mental Status: []Pt alert and oriented, casually dressed and groomed. Eye contact good. Motor activity appropriate. Speech within normal limits. Affect congruent, mood stressed. Thoughts linear, logical, no signs of hallucinations or delusions. Client Response/Progress/Benefit: [] Pt was an active participant in group discussion and experiential activity. Attentive during psychoeducation on resilience and provided input throughout. Participated in interactive discussion with peers on the definition of resilience and where it comes from. Group identified that resiliency can be impacted by; past experiences, upbringing, and personality traits. Pt shared ?I feel like all the trauma I?ve been through makes me resilient.? Group also worked together to identify the benefits of being resilient and how it is related to mental health. Able to relate experiential activity of group juggle to topics of resilience. Worked with peers in small group in which they identified factors that contribute to resilience. Benefited from increased awareness of resilience and the factors that contribute to building resilience. Will continue in IOP tx to prevent use of unhealthy coping skills, improve self-confidence, and reduce negative thinking patterns. Narrative Note: []
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
--- NOTE | 2024-07-09 09:00 | BH.SGPN.GN ---
Behaviors/Verbalizations/Mental Status: [] Pt alert and oriented, casually dressed and groomed. Eye contact good. Motor activity appropriate. Speech within normal limits. Affect congruent, mood content. Thoughts linear, logical, no signs of hallucinations or delusions. Reviewed pt?s symptom tracker, no risk for suicidal ideation, plan, or intent 07/09/24. Client Response/Progress/Benefit: []Pt was an active participant in group discussions. Attentive. Able to identify mental health wins including signing up for a local support event, as well as having a difficult conversation with her children regarding recently ending her relationship. Pt's stressor today is recent change in mood cycling. Reports not letting it get to her and reminding herself of healthy coping skills she can use. Pt receptive to feedback from peers which pt reported was helpful. Progress noted. Benefited from group support, encouragement, and feedback. Will continue IOP tx to promote use of healthy coping skills, increase self-confidence, and improve mood stability. Narrative Note: []
--- NOTE | 2024-07-09 10:10 | BH.SGPN.GN ---
Behaviors/Verbalizations/Mental Status: [] Pt alert and oriented, casually dressed and groomed. Eye contact good. Motor activity appropriate. Speech within normal limits. Mood: depressed. Affect: congruent. Thoughts linear, logical, no signs of hallucinations or delusions. Client Response/Progress/Benefit: [] Pt was an active participate during group discussions. Attentive during psychoeducation on self-sabotage and its impact on mental health. Worked with peers to identify reasons individuals perform self-sabotage behaviors (fear of change, habitual, low self-esteem,confirm mistaken beliefs, false sense of control). Pt identified the forms of self-sabotage that impact their mental health the most which included procrastinate, self-medicate, people pleasing, and overly pourus behaivors. Seemed to benefit from gaining awareness about the self-sabotage. Pt to continue IOP tx to prevent decompensation, stabilize mood, increase healthy coping, and improve functioning Narrative Note: []
--- NOTE | 2024-07-09 11:10 | BH.SGPN.GN ---
Behaviors/Verbalizations/Mental Status: []Pt alert and oriented, casually dressed and groomed. Eye contact good. Motor activity appropriate. Speech within normal limits. Affect congruent, mood agitated. Thoughts linear, logical, no signs of hallucinations or delusions. Client Response/Progress/Benefit: [] Pt responded well to session, engaged and contributing. Pt worked on mental health wellness garden picture and discussed things that contribute to mental wellness life. With peers, pt discussed things that would sabotage one's mental health wellness and added it to the garden metaphor. Pt identified things pt personally does to sabotage as self-harm, people please, and having overly porous boundaries. Pt attentive during psychoeducation on ways to reduce self-sabotage and pt selected using dialectical thinking to help maintain boundaries ?as the skill that could help pt reduce self-sabotaging behaviors. Pt appeared to benefit from learning skills and gaining awareness of self-sabotaging behaviors. Pt will continue IOP tx to prevent decompensation, improve distress tolerance skills, and combat negative self-talk. Narrative Note: []
--- NOTE | 2024-07-10 11:47 | BH.MTP_ITS ---
Treatment Plan Review Demographics Date of Admission:: 06/13/24 Date of Treatment Plan Review:: 07/10/24 Admitting Diagnoses:: 1. Bipolar 2 disorder (currently depressed) 2. Borderline personality disorder 3. Generalized anxiety disorder 4. PTSD Current Diagnoses:: 1. Bipolar 2 disorder (currently depressed) 2. Borderline personality disorder 3. Generalized anxiety disorder 4. PTSD Patient Status Patient's Response to Treatment:: Pt is responding well to IOP tx AEB pt's consistent attendance, report of benefitting from group support and education, and self-report of learning healthy coping skills. Pt is engaged in group sessions, and is doing well to verbally contribute. Pt reports medication compliance and pt does well with completing homework. Pt does however struggle with consistent application of thought challenging, self-care, distress tolerance skills, communication, and positive self-talk. As a result Pt's overall DSM-5 scores have not decreased since admission. Status of Current Problems and Symptoms: Pt's symptoms of depression have remained consistent since admission and anxiety has seen a slight influx in severity. This is largely due to the recent changes in pt?s relationship status and managing stress related to her ex?s mental health and establishing firm boundaries regarding the relationship. Pt reports reduction in own self-care as a result. Pt would benefit from improving in consistent application of skills outside of the treatment environment. Pt continues to struggle with depression related to accepting her mental health struggles, anxiety related to adjusting to single parenting again and inappropriate guilt, not feeling connected to herself, and negative thinking patterns. Pt's depression is decreasing, but pt reports ongoing feelings of being a burden, hopelessness, and worthlessness. Progress Problem #1: Problem Name:: depression, irritability, and worthlessness. Status of Goals:: Objective 1- in progress. Pt?s DSM-5 scores for depression have not decreased since admission; however, irritability has seen a 25% reduction. Pt has gained awareness of coping mechanisms that reinforce depression like isolation and self-criticism, and pt has been working on reducing this. Pt has made progress in getting back into activities she enjoys, such as coloring, reading, and spending time outdoors. Pt continues to endorse depressive symptoms such as feeling hopeless, like a burden, and low motivation. Is doing better to engage in self-care as well. Objective 2- in progress. Pt is learning about mistaken beliefs and how her self-talk reinforces depression and feelings of worthlessness. Pt continues to struggle with self-compassion and replacing negative self-talk with more affirmative statements. Team Recommendations:: Treatment team recommends pt continue to work on these tx goals. Therapist also encourages pt to increase communication with supports, increased engagement in activities outside the home to improve mood and increase support net, and use of healthy coping skills to manage depression and reduce isolation. Pt was encouraged to continue setting daily goals to reduce isolation and increase motivation as well. Problem #2: Problem Name:: anxiety, mood stability Status of Goals:: Objective 1- in progress. Per pt?s DSM-5 pt?s anxiety has increased by 28% since admission. Pt has learned healthy coping skills and does report benefitting from the psychoeducation on distress tolerance, calming skills, and safety behaviors as well as in group sessions. Pt does however report difficulties in applying the grounding skills she is learning outside of the group setting as well due to difficulties with managing her emotions related to other?s behaviors. Pt relationship tension has been causing her a significant amount of distress recently as she often personalizes and makes other?s emotions her responsibility. Team Recommendations:: Treatment team recommends pt continue to work on these tx goals. Therapist also encourages pt to communicate with healthy supports and reduce self-sabotaging behaviors like isolation and self- deprecation.
--- NOTE | 2024-07-11 09:00 | BH.SGPN.GN ---
Behaviors/Verbalizations/Mental Status: [] Client alert and oriented, casual appearance. Eye contact good. Motor activity appropriate. Speech within normal limits. Affect congruent, mood anxious. Thoughts linear, logical, no signs of hallucinations or delusions. Reviewed client's symptom tracker, no risk for suicidal ideation, plan, or intent. Client Response/Progress/Benefit: [] Client responded well to session AEB listening to others and sharing thoughts/feelings. Client reported mental health positive as hanging out with a old friend she hasn't seen in awhile. Client stated it was really helpful to connect with her friend again. Client stated additional positive as taking ownership/accountability to her friend for the reason their friendship had become distant. Client stated current stressor as her ex-boyfriend keeps trying to contact her and get her to break her boundaries. Appeared to benefit from support from peers. Will continue IOP tx to increase consistent healthy coping skills, improve distress tolerance, and prevent decompensation.
--- NOTE | 2024-07-11 09:02 | BH.MDN_ITS ---
Multi-Disciplinary Note Note 45-min Individual: Time Started:: 08:23 Date: 07/11/24 Purpose of session/treatment goals addressed:: To address treatment plan goal #1 obj #2 and goal #2 obj #1 Eye Contact:: Good Motor Activity:: Appropriate Appearance:: Casual Speech:: Appropriate Mood:: Anxious and Dysthymic Affect:: Congruent Thoughts:: Linear, Logical and No evidence of hallucinations/delusions noted Staff Interventions:: thought challenging, CBT techniques, strengths perspective and goal setting Client Response:: Pt receptive of session, actively engaged throughout. Reports continued frustrations with maintaining the boundary of limited contact with her ex outside of discussing their child. Shared that her ex continues to text and call trying to convince pt to reconcile their relationship. Noted this has escalated to point of her ex threatening to harm himself if she does not. Pt did well to identify that she is not responsible for how he responds to her boundaries or obligated to respond out of fear. Pt did express struggling emotionally when reading these threats of self-harming but has been able to maintain her boundaries and not respond outside of communicating crisis resources to him. Pt reports that worrying about his wellbeing and adjusting to the change in the relationship has made it more difficult to manage her daily household and caregiving responsibilities. Shared struggling somewhat with finances and has been experiencing negative thoughts of ?I?m failing my children? and ?I can?t do this all on my own?. Described feeling overwhelmed and has been experiencing intrusive thoughts of wanting to or self-harm as a means of escape. Denies actual thoughts of suicide and recognizes these thoughts and self-harm urges continue to be safety behaviors to avoid feeling overwhelmed, anxious, or uncomfortable. Reports her ex had agreed to continue to pay the phone bill in lieu of formal child support at this time; however, has not yet followed through with doing so. Pt reports she has an appointment with h er bilingual case manager tomorrow but feels ashamed of reaching out for help. Expressed thoughts of ?I should be able to handle this on my own?. Worked with therapist to challenge these thought distortions and normalize the need for additional resources. Reports she is almost out of diapers and cannot afford to purchase more. Worked with therapist to review community resources such as local pantries, community action, and various diaper drives in the area. Pt willing to reach out for additional assistance, as well as work with her bilingual case manager to continue to work on addressing these needs. Risks/Concerns:: None noted. Pt reports ongoing thoughts of not wanting to be in existence but denies these are suicidal in nature. Denies plan or intent. Protective factors and future orientation. Progress Toward Goals/Plan:: Progress noted. Pt reports improved ability to challenge inappropriate guilt and maintain her boundaries with her ex. Continues to report anxiety over daily responsibilities and caregiving; however, doing better to regulate associated emotions and continue to utilize more adaptive means of coping. Continues to struggle with consistent self-care and self-compassion. Reports ongoing issues with sleep as well. Continued IOP tx to promote mood stability, increase self-care and confidence, and prevent decompensation. Time Stopped:: 09:12
--- NOTE | 2024-07-11 10:15 | BH.SGPN.GN ---
Behaviors/Verbalizations/Mental Status: [] Eye contact is good. Motor activity is appropriate. Appearance is casual. Speech is Appropriate. Mood is anxious and depressed. Affect is flat. Thoughts are linear and logical. No evidence of psychosis. Client Response/Progress/Benefit: [] Pt responded well to session AEB actively participating throughout group. Pt was attentive throughout group activity discussing famous individuals and how they overcame failure to be successful. Pt helped group define fear of failure as well as how it can impact mental health and relationships. Participated in experiential activity and worked with group members to problem solve. Appeared to benefit from increased knowledge of what causes fear of failure and how it impacts people. Will continue IOP tx to prevent decompensation, maintain safety, increase healthy coping, and provide support. Narrative Note: []
--- NOTE | 2024-07-11 11:15 | BH.SGPN.GN ---
Behaviors/Verbalizations/Mental Status: []Pt alert and oriented, casually dressed and groomed. Eye contact good. Motor activity appropriate. Speech within normal limits. Affect congruent, mood anxious. Thoughts linear, logical, no signs of hallucinations or delusions. Client Response/Progress/Benefit: [] Pt responded well to session, engaged in the experiential activity and attentive throughout group processing. Interactive discussion with peers on what FOF has kept them from which included; finding healthy relationships, being authentic, and setting boundaries. Pt completed fear of failure worksheet and was able to identify thoughts and behaviors that reinforce personal fear of failure. Pt participated in small group discussion regarding strategies to overcome fear of failure. Identified struggling most with inappropriate guilt and low self-worth.? Pt will work on these by practicing ?positive affirmations and taping into a problem-solving mindset.? Appeared to benefit from increased knowledge of strategies to combat fear of failure and gaining self-awareness. Pt will continue IOP tx to prevent decompensation, improve daily functioning, and reduce self-sabotaging behaviors. Narrative Note: []
--- NOTE | 2024-07-12 09:00 | BH.SGPN.GN ---
Behaviors/Verbalizations/Mental Status: [] Eye contact is good. Motor activity is appropriate. Appearance is casual. Speech is Appropriate. Mood is dysthymic. Affect is congruent. Thoughts are linear and logical. No evidence of psychosis. Reviewed daily check in sheet and pt reports 3/5 for suicidal ideations and 2/5 for intent. This is lower than baseline. No imminent risk noted. Client Response/Progress/Benefit: [] Pt was an active participant in group discussions. Attentive. Daily symptom tracker notes 4/5 for anxiety and self-harm urges and 3/5 for depression and anxiety. SI-3 IN-2. Shared with the group that her son had an ?autism breakdown? yesterday. Proud of herself for assisting her son through the event through various techniques. She suspects that recent changes in routine related to pt breaking up with BF contributed to the event. The group normalized emotional responses to change and reiterated that emotional response doesn?t necessarily imply that the change was not warranted. Progress noted. Benefited from group support, encouragement, and feedback. Will continue in IOP to maintain safety, prevent decompensation, increase healthy coping, and improve functioning. Narrative Note: []
--- NOTE | 2024-07-12 10:05 | BH.SGPN.GN ---
Behaviors/Verbalizations/Mental Status: [] Client alert and oriented, casually dressed and groomed. Eye contact good. Motor activity appropriate. Speech within normal limits. Affect congruent, mood euthymic. Thoughts linear, logical, no signs of hallucinations or delusions. Client Response/Progress/Benefit: [] Client responded well to session AEB contributing to discussion, taking notes, and listening attentively to others. Group discussed the benefits of managed anger and anger as a secondary emotion. Client participated in anger iceberg discussion. Group reported outward personal signs of anger as shutting down, isolating, and yelling. Group Identified underlying emotions that contribute to anger including family, daily stress, disappointment, and trauma. Appeared to benefit from increased knowledge of the underlying emotions that impact anger and increased self-awareness of the internal and external consequences of anger. Client will continue IOP program to increase emotional regulation skills and prevent decompensation. Narrative Note: []
--- NOTE | 2024-07-12 11:10 | BH.SGPN.GN ---
Behaviors/Verbalizations/Mental Status: [] client alert and oriented, neatly dressed and groomed. Eye contact good. Motor activity appropriate. Speech within normal limits. Affect congruent, mood euthymic. Thoughts linear, logical, no signs of hallucinations or delusions. Client Response/Progress/Benefit: [] Client was an engaged participant throughout group AEB client providing input throughout discussion. Client contributed to the continued discussion of how people express anger as well as the underlying emotions of anger. Client participated in group activity that highlighted strategies to cope with anger. Group brainstormed healthy coping skills to help prevent anger and cope with it in the moment which included: mindfulness, deep breathing, journaling, going outside, and music. Client identified skills to implement to help with anger as setting boundaries to prevent anger and journaling to help manage anger in the moment. Client appeared to benefit from brainstorming with the group potential strategies to manage anger in healthy ways. Recommended continued IOP to increase self worth and prevent decompensation. Narrative Note: []
--- NOTE | 2024-07-16 09:00 | BH.SGPN.GN ---
Behaviors/Verbalizations/Mental Status: [] Eye contact is good. Motor activity is appropriate. Appearance is disheveled. Speech is Appropriate. Mood is . Affect is full. Thoughts are linear and logical. No evidence of psychosis. Reviewed daily check in sheet and pt reports 4/5 for suicidal ideations and 3/5 for intent. Long-standing daily SI with fleeting intent. Scores close to baseline. Therapist notified to check-in with patient. Staff will monitor pt closely. Client Response/Progress/Benefit: [] Daily symptom tracker notes 4/5 for depression, anxiety, irritability and self-harm urges. Pt was an active participant in group discussions. Attentive. Pt shared that her ex-bf whom she recently broke up with ? ended up in the psych unit?. According to pt he blames her which has resulted in ruminations that pt ?poisons everyone around her?. Group provided support and empathy which was helpful. Group also provided different perspectives and helped reframe thoughts to be more realistic. Benefited from group support, encouragement, and feedback. Will continue in IOP to maintain safety, stabilize mood, and increase healthy coping. Narrative Note: []
--- NOTE | 2024-07-16 10:15 | BH.SGPN.GN ---
Behaviors/Verbalizations/Mental Status: [] Pt alert and oriented, casually dressed and groomed. Eye contact good. Motor activity appropriate. Speech within normal limits. Affect full (tearful at times), mood depressed. Thoughts linear, logical, no signs of hallucinations or delusions. Client Response/Progress/Benefit: [] Pt was an engaged participant AEB listening attentively to others, taking notes, and providing feedback in group discussions. Attentive during psychoeducation AEB by note taking. Pt worked along with peers in groups to define inappropriate guilt and appropriate guilt. Group worked together to provide examples of both inappropriate and appropriate guilt. Group identified a car accident and snapping at kids as appropriate guilt examples. Group identified setting a boundary and being a victim as having inappropriate guilt about. Pt able to connect impact inappropriate guilt can have on MH and overall functioning. Benefited from increased awareness of guilt and the differences between appropriate and inappropriate guilt. Pt to continue IOP tx to prevent decompensation, gain healthy coping skills, and increase boundary making skills. Narrative Note: []
--- NOTE | 2024-07-16 11:15 | BH.SGPN.GN ---
Behaviors/Verbalizations/Mental Status: [] Pt alert and oriented, casually dressed and groomed. Eye contact good. Motor activity appropriate. Speech within normal limits. Affect full (tearful at times), mood depressed. Thoughts linear, logical, no signs of hallucinations or delusions. Client Response/Progress/Benefit: [] Pt was an engaged participant AEB listening attentively to others and providing input throughout group. Pt along with group members, identified strategies to manage inappropriate guilt. Identified a personal example of inappropriate guilt as ?gale doing so poorly in life? Pt wants to work on combatting inappropriate guilt by trying to change negative beliefs? Pt seemed to benefit from learning about strategies to manage appropriate and inappropriate guilt. Pt to continue IOP tx to prevent decompensation and increase overall funcitoning. Narrative Note: []
--- NOTE | 2024-07-16 11:15 | BH.SGPN.GN ---
Behaviors/Verbalizations/Mental Status: [] Pt alert and oriented, casually dressed and groomed. Eye contact good. Motor activity appropriate. Speech within normal limits. Affect full (tearful at times), mood depressed. Thoughts linear, logical, no signs of hallucinations or delusions. Client Response/Progress/Benefit: [] Pt was an engaged participant AEB listening attentively to others and providing input throughout group. Pt along with group members, identified strategies to manage inappropriate guilt. Identified a personal example of inappropriate guilt as ?glae doing so poorly in life? Pt wants to work on combatting inappropriate guilt by trying to change negative beliefs? Pt seemed to benefit from learning about strategies to manage appropriate and inappropriate guilt. Pt to continue IOP tx to prevent decompensation and increase overall funcitoning. Narrative Note: []
--- NOTE | 2024-07-16 15:09 | BH.MDN_ITS ---
Multi-Disciplinary Note Note 45-min Individual: Time Started:: 12:00 Date: 07/16/24 Purpose of session/treatment goals addressed:: Purpose of session was to address inappropriate guilt and negative core beliefs resulting in worsening depression and self-harm urges. Eye Contact:: Good (tearful) Motor Activity:: Appropriate Appearance:: Casual Speech:: Appropriate Mood:: Depressed Affect:: Congruent Thoughts:: Linear, Logical and No evidence of hallucinations/delusions noted Staff Interventions:: thought challenging, psychoeducation on: (negative core beliefs), CBT techniques, strengths perspective, completed risk assessment / safety planning and goal setting Client Response:: Pt responded well to session, open to meeting with therapist. Pt reports she has been struggling the past several days since her ex-boyfriend was admitted to an inpatient psychiatric unit. Pt has been in communication with her ex?s father to provide support and is struggling with increase thoughts that it is her fault his mental health is struggling. Did well to challenge these thoughts and has insight that she is not responsible for other?s emotions or how they respond to her boundaries. Pt went on to note that she has additionally been feeling more triggered by her past trauma and is uncertain as to why. After further discussion, pt provided insight that the change in her relationship is triggering negative core beliefs that she ?just poisons everyone around me? and feelings that her only worth is sexual in nature. Did well to work with therapist on challenging these and identifying areas in which pt has seen her own worth and value in the past. Pt disclosed temptations to numb or engage in self-sabotaging behaviors such as pursuing sexual intimacy or self-harming. Insight on the impact these behaviors would have on her mental health healing process long-term. Pt stated wanting to feel more in control in her life as she has been feeling ?overwhelmed? and ?all over the place?. Reviewed the coping role self-harming has had in her life in the past and discussed that although this provided her with a sense of control and escape in the past, she now has healthier tools to meet these needs. Pt connected with turning to self-harm as an automatic response given her long history of using this as her primary means for distress tolerance. Pt receptive of working with therapist to review more adaptive distress tolerance skills she can use to self-regulate and calm. Pt identified rocking in her rocking chair, weighted blanket, playing piano, positive self-talk reminders, spending time walking outdoors, and cooking. Additionally shared that reaching out to her grandparents for financial support would aid in reducing stress levels as well. Risks/Concerns:: Reports passive thoughts of and increased self- harming urges but denies active thoughts, plan, or intent. Denies access to excess medication or any weapons she could self-harm with. Protective factors and future oriented. Progress Toward Goals/Plan:: Progress variable. Pt reports worsening sx of depression and overwhelm in the past few weeks, as well as guilt associated with the end of her relationship. Reports despite increased urges to self-harm, she has not done so. Continues to maintain boundaries with her ex-boyfriend despite guilt over ending the relationship. Pt has significant negative core beliefs, as well as limited distress tolerance which often results in pt turning to impulsive and maladaptive coping mechanisms. Struggles with consistent self- care and urges to numb overwhelming emotions. Pt does report increased intentionality in use of positive self-talk, spending time engaging in mindfulness activities, as well as recently reaching out to an old support. Recommended continued IOP tx to promote mood stability, improve self-confidence and distress tolerance, as well as prevent decompensation. Time Stopped:: 12:45
--- NOTE | 2024-07-18 09:05 | BH.SGPN.GN ---
Behaviors/Verbalizations/Mental Status: [] Eye contact is good. Motor activity is appropriate. Appearance is casual. Speech is Appropriate. Mood is euthymic. Affect is full. Thoughts are linear and logical. No evidence of psychosis. Reviewed daily check in sheet and pt reports 4/5 for suicidal ideations and 3/5 for intent. Therapist notified. Will monitor closely and complete risk assessment. Whilce scores are high pt has long-standing daily SI and scores are close to her baseline since starting IOP. Client Response/Progress/Benefit: [] Pt was an active participant in group discussion. Attentive. Daily symptom tracker notes 4/5 for depression, anxiety, irritability, and self-harm urges. SI 4/5 3/5 in. Pt reports poor sleep and medication non-compliance. ? I forgot to take my meds last night?. Feeling ?dysregulated and depressed?. Shared several situational and relationship stressors which lead to negative automatic thoughts about herself. Group allowed pt to vent and offered supportive feedback which was beneficial. She was encouraged to utilize her skills to prevent further decompensation. ? I know?. Regression noted. Will continue in IOP to maintain safety, increase healthy coping, and prevent decompensation. Narrative Note: []
--- NOTE | 2024-07-18 10:10 | BH.SGPN.GN ---
Behaviors/Verbalizations/Mental Status: [] Client alert and oriented, casually dressed and groomed. Eye contact good. Motor activity appropriate. Speech within normal limits. Affect congruent, mood euthymic. Thoughts linear, logical, no signs of hallucinations or delusions Client Response/Progress/Benefit: [] Client was an active participant, AEB taking notes and providing input in group discussions and activities. Attentive during psychoeducation. Client engaged during interactive discussion in which the group defined self-care and discussed its benefits. Group discussed barriers to engaging in self-care. Client identified personal barrier of her kids preventing her from engaging in self care. Client participated in small groups where they worked to identify common self-care ?myths?. Benefited from increased awareness of self-care, its benefits, and the consequences of not utilizing self-care strategies. Will continue IOP tx to prevent decompensation, promote healthy coping skill application, and continue to improve mood stability. Narrative Note: []
--- NOTE | 2024-07-18 13:41 | BH.MDN ---
Multi-Disciplinary Note Note 45-min Individual: Time Started:: 08:30 Date: 07/18/24 Purpose of session/treatment goals addressed:: Pt tearful and requested to meet. Session focused on emotion regulation and creating a self-care plan. Eye Contact:: Good (tearful) Motor Activity:: Appropriate Appearance:: Casual Speech:: Pressured Mood:: Anxious Affect:: Congruent Thoughts:: Linear, Logical, Racing and No evidence of hallucinations/delusions noted Staff Interventions:: CBT techniques, mindfulness skills, strengths perspective and goal setting Client Response:: Pt tearful and requested to meet with therapist. Reports struggling with feeling overwhelmed with life and managing caregiving responsibilities. Discussed still caring for her ex?s cat as he remains at an inpatient psych unit and has been having issues with the cat peeing in the house. Reports that she cannot afford to keep caring for this animal as she is struggling to make ends meet as it is. Shared that she is continuing to work with her ex?s father to try and coordinate but to limited avail. Shared that caring for her three children is beginning to feel overwhelming as well as they have all recently been struggling with regulating their own emotions. Pt reports her son has had more incidents with emotion regulation while at soccer practice too which is difficult as he is then embarrassed afterward. Shared feeling physically and emotionally exhausted. Multiple doctor?s appointments and therapy sessions scheduled for the family in the upcoming weeks as well. Receptive of engaging in deep breathing and grounding techniques to aid in calming pt as her speech was becoming more pressured in discussing stressors. After several minutes, pt able to calm. Receptive of reviewing importance of caring for her own needs in order to be present for her children and best care for them. Pt shared feeling like she needs a ?break? and to rest but does not feel she has time to ever do so. Shared plans to pick her toddler up from grandparents after session today and then her kids at 3pm before beginning the afternoon routines. Receptive of suggestion for grandparents to extent babysitting out in order for pt to recoup this afternoon before picking the other children up. Plans to nap and play piano or watch a show while folding laundry. Pt encouraged to identify small moments throughout the day she can use as self-care ?reset? breaks, such as in the morning after dropping off the children or evenings after they lay down. Pt regulated and Risks/Concerns:: Denies SI, plan, or intent on this date 07/18/24 Progress Toward Goals/Plan:: Some regression. Pt reports feeling overwhelmed and anxious due to difficulties in managing caregiving responsibilities. Struggles with balancing caregiving and self-care often leading to increased stress and mood instability. Pt then begins to engage in negative self-talk, reinforcing adverse sx. Able to utilize thought challenging and mindfulness to regulate. Recommended continued IOP tx to improve distress tolerance, encourage self-care, and prevent decompensation. Time Stopped:: 09:15
--- NOTE | 2024-07-19 09:00 | BH.SGPN.GN ---
Behaviors/Verbalizations/Mental Status: [] Eye contact is good. Motor activity is appropriate. Appearance is casual. Speech is Appropriate. Mood is euthymic. Affect is full. Thoughts are linear and logical. No evidence of psychosis. Reviewed daily check in sheet and pt reports 2/5 for suicidal ideations an intent. These scores are the lowest they have been all week. Client Response/Progress/Benefit: [] Pt was an active participant in group discussions. Attentive. Daily symptom tracker notes 3/5 for depression and anxiety, 4/5 for self-harm urges. Her son continues to struggle with dysregulation which pt attributes to recent changes. She is proud that she is able to take control, utilize calming skills, and ?be a good mom? to her autistic son as he works through change in routine. Overall feels ?hopeful?. She has an upcoming family holiday which her father will be attending. Very difficulty relationship with father as she is fearful this will be a trigger that will lead to decompensation. Despite this she wants to attend the event and elaborated on the reasons. She reports a few strategies she will be utilizing. Progress noted. Benefited from group support, encouragement, and feedback. Will continue in IOP to maintain safety, prevent decompensation, and increase healthy coping skills. Narrative Note: []
--- NOTE | 2024-07-19 10:15 | BH.SGPN.GN ---
Behaviors/Verbalizations/Mental Status: [] Client alert and oriented, casually dressed and groomed. Eye contact good. Motor activity appropriate. Speech within normal limits. Affect congruent, mood dysthymic and anxious. Thoughts linear, logical, no signs of hallucinations or delusions. Client Response/Progress/Benefit: [] Pt engaged in session AEB client listening attentively to peers and providing input. Attentive and contributed to discussion as group worked on defining self-forgiveness and identifying mental health benefit. Identified benefits as: reduce guilt/shame, increase self-confidence, decrease negative self-talk, healthier relationships, ect. ?Worked in small groups to identify factors that can make self-forgiveness difficult. Pt identified a personal barrier to self-forgiveness as feeling she doesn't deserve it and negative sore beliefs. Benefited from increased education on self-forgiveness, benefits, and what effects it. Pt will continue IOP tx to increase self-compassion, improve emotional regulation skills, and prevent decompensation. Narrative Note: []
--- NOTE | 2024-07-19 11:15 | BH.SGPN.GN ---
Behaviors/Verbalizations/Mental Status: [] Client alert and oriented, casually dressed and groomed. Eye contact good. Motor activity appropriate. Speech within normal limits. Affect congruent, mood euthymic. Thoughts linear, logical, no signs of hallucinations or delusions. Client Response/Progress/Benefit: [] Pt engaged in session AEB client listening attentively to peers and providing input. Attentive during psychoeducation on the 4 R?s of Self-Forgiveness (Responsibility, Remorse, Anabaptism, Renewal). Contributed to discussion as group worked on identifying strategies for improving ability to practice self-forgiveness. Reports wanting to practice thought challenging and starting small. Engaged in self-forgiveness activity and benefited from increased education on self-forgiveness building skills. Pt will continue IOP tx to increase self-compassion, improve emotional regulation skills, and prevent decompensation. Narrative Note: []
--- NOTE | 2024-07-23 10:10 | BH.SGPN.GN ---
Behaviors/Verbalizations/Mental Status: []Pt alert and oriented, neatly dressed and groomed. Eye contact fair. Motor activity appropriate. Speech within normal limits. Affect congruent, mood dysthymic. Thoughts linear, logical, no signs of hallucinations or delusions. Client Response/Progress/Benefit: [] Pt was attentive during psychoeducation and participated in group activity. Group discussed what contributes to a person?s perspective and how perspective can positively or negatively impact mental health treatment. Pt reflected on their perspective today and how it is impacting them. ?Pt appeared to benefit from increasing awareness of different perspectives and how they can affect mental health. Pt will continue IOP tx to improve view of self, maintain healthy boundaries, and prevent decompensation.
--- NOTE | 2024-07-23 11:15 | BH.SGPN.GN ---
Behaviors/Verbalizations/Mental Status: []Pt alert and oriented, casually dressed and groomed. Eye contact good. Motor activity appropriate. Speech within normal limits. Affect congruent, mood content. Thoughts linear, logical, no signs of hallucinations or delusions. Client Response/Progress/Benefit: []Pt was attentive and contributed to group discussion. Pt worked with group to identify strategies that can help with challenging negative perspective. Pt stated they can practice using dialectical thinking as a way to challenge negative perspective. Pt completed strengths exploration worksheet, identifying personal strengths. Pt able to acknowledge how these strengths are helping pt and can continue to help pt in mental health journey. Pt identified wanting to work on leaning on strength of creativity and artistic ability for healthier emotional expression. Benefited from identifying personal strengths and strategies for enhancing use of identified strengths. Pt will continue IOP tx to continue improve functioning, independence, mood stability, and prevent decompensation. Narrative Note: []
--- NOTE | 2024-07-23 15:27 | BH.MDN_ITS ---
Multi-Disciplinary Note Note 60-min Individual: Time Started:: 08:35 Date: 07/23/24 Purpose of session/treatment goals addressed:: Purpose of session was to aid pt in processing a recent stressor and identify strategies for effectively communicating her emotions while maintaining healthy boundaries and mood stability. Eye Contact:: Good Motor Activity:: Appropriate Appearance:: Casual Speech:: Appropriate Mood:: Dysthymic Affect:: Congruent Thoughts:: Linear, Logical and No evidence of hallucinations/delusions noted Staff Interventions:: thought challenging, psychoeducation on: (negative core beliefs), CBT techniques, strengths perspective and goal setting Client Response:: Pt receptive of session, actively engaged throughout. Reports her ex-boyfriend was discharged from inpatient unit yesterday and reached out to her. Pt had therapist read the text message which consisted of pt?s ex processing their relationship and identifying areas in which he felt hurt or wronged by pt throughout the relationship. Pt reports she initially wan maik to self-harm and lash out in response and hurt him out of her own pain and anger. Did well not to and instead focused on the other tasks she had to tend to throughout the day. Reports that she struggled with feeling a mix of emotions such as hurt, anger, sadness, guilt, and invalidation. Noted that although she logically knows the relationship ending is not solely her responsibility, she is struggling to remind herself of this. Expressed guilt and fear that she is ?poisonous? and will damage anyone?s life she is in. Worked with therapist to process these emotions and identify the underlying sources of this negative core belief, which pt brought back to childhood trauma. Pt receptive of working with therapist to challenge this belief and process how her own trauma reinforces pt?s tendency to shield herself from being disappointed by other?s by shouldering the responsibility herself. Pt noted a desire to respond to the message but wants to prevent additional conflict or unnecessary communication. Receptive of first writing a letter that she does not plan to send for emotional release, in which she can address everything she wishes she could say without consequence. Once regulated, Pt will then draft a letter of what she feel needs to be addressed, utilizing more of a [employer] approach. Plans to spend time listening to music and crafting afterwards as well. Risks/Concerns:: Denies active SI, plan, or intent. No access to lethal means. Future oriented and protective factors noted. Progress Toward Goals/Plan:: Progress noted. Though pt continues to struggle with personalization and inappropriate guilt surrounding her relationship, she is reporting improved ability to regulate her emotions and navigate interpersonal relationship stressors. Reports continuing to reach out to healthy supports, more consistent application of emotion regulation and grounding skills during moments of distress, as well as self-soothing tools such has music. Pt has additionally noted increased engagement in hobbies she had not done in some time, such as crafting. Pt recommended continued IOP tx to promote ongoing progress, continue to improve self-compassion, and prevent decompensation. Time Stopped:: 09:33
--- NOTE | 2024-07-25 09:00 | BH.SGPN.GN ---
Behaviors/Verbalizations/Mental Status: []Pt alert and oriented, neatly dressed and groomed. Eye contact good. Motor activity appropriate. Speech within normal limits. Affect congruent, mood motivated and anxious. Thoughts linear, logical, no signs of hallucinations or delusions. Reviewed pt?s symptom tracker, no risk for suicidal ideation, plan, or intent 07/25/24. Client Response/Progress/Benefit: []Pt was an active participant in group discussions. Attentive. Able to identify mental health wins including allowing herself to practice non-productive self-care and writing a letter addressed to her ex for emotional release. Pt's stressor today is ?my son with autism has been having a really difficult time lately.? ?Pt is feeling like a roller-coaster, that?s the only way I can describe it? this morning. Pt receptive to feedback from peers which pt reported was helpful. Progress noted. Benefited from group support, encouragement, and feedback. Will continue IOP tx to promote mood stability, further reduce use of unhealthy coping skills, and increase self-confidence. Narrative Note: []
--- NOTE | 2024-07-25 09:29 | BH.MDN_ITS ---
Multi-Disciplinary Note Note 45-min Individual: Time Started:: 08:45 Date: 07/25/24 Purpose of session/treatment goals addressed:: Pt requested session to review response letter she drafted prior to sending to her ex. Eye Contact:: Good Motor Activity:: Appropriate Appearance:: Casual Speech:: Appropriate Mood:: Anxious and Dysthymic Affect:: Congruent Thoughts:: Linear, Logical and No evidence of hallucinations/delusions noted Staff Interventions:: thought challenging, motivational interviewing, CBT techniques and strengths perspective Client Response:: Pt requested session to review with therapist the letter she drafted in response to ex-boyfriend reaching out Monday. Shared that writing a letter for emotional release prior to the one she intends to send was helpful in being able to be more measured with her words. Had therapist read the letter as pt did not feel she could read it aloud. Explored and processed pt?s feelings surrounding what she wrote. Pt indicated feeling confident with what she wrote and anxious but ready to share her perspective with him. Receptive of suggestion she include her expectations of the relationship moving forward to prevent her ex from making any assumptions. Pt reports that as of rig ht now she maintains that they cannot rekindle the relationship until they both take time to work on themselves. Clarified that she does not believe she will be ready to revisit this for several years and would like to focus on coparenting. Pt provided insight that it may be beneficial for them both to take time after she sends the message to process and regulate. Plans to communicate this prior t o sending the actual message and put her phone somewhere out of reach in case he does not respect the boundary to wait a few days before responding. Identified plans to work on her daughter?s [employer] board as her anniversary date is approaching. Reports this will be soothing as she will be able to be use it as a creative outlet and healthy distraction. Risks/Concerns:: Pt denies SI, plan, or intent as of this date. Reports ability to maintain safety, protective factors noted. Progress Toward Goals/Plan:: Some regression noted. Pt reports some anxiety and guilt regarding the response letter; however, does indicate trying to use self-compassion and remind herself of the importance of self-advocacy. Pt shared engaging in self-care the last two days and has been walking when feeling overwhelmed. Playing the piano and journaling. Continues to struggle with self- worth being determined by other's opinion on her. Recommended continued IOP tx to improve mood stability, self-confidence, and prevent decompensation. Time Stopped:: 09:15
--- NOTE | 2024-07-25 11:05 | BH.SGPN.GN ---
Behaviors/Verbalizations/Mental Status: [] Pt alert and oriented, casual in appearance. Eye contact good. Motor activity appropriate. Speech within normal limits. Affect congruent, mood euthymic. Thoughts linear, logical, no signs of hallucinations or delusions. Client Response/Progress/Benefit: [] Pt engaged participant AEB provided contributions during discussion, taking notes, and listening attentively to others. Engaged in the provided activity. Group discussed the different categories of coping skills which included distraction, emotional release, grounding, self-love, and thought challenging. Pt participated in creating a coping skills ?menu? from the different categories of coping skills. Pt's coping skill menu included: doing something creative, progressive muscle relaxation, setting boundaries, and dialectical thinking. Appeared to benefit from increasing repertoire of healthy coping skills. Will continue IOP to promote healthy coping, challenge distortions, maintain safety, and prevent decompensation Narrative Note: []
--- NOTE | 2024-07-26 09:05 | BH.SGPN.GN ---
Behaviors/Verbalizations/Mental Status: [] Eye contact is good. Motor activity is appropriate. Appearance is casual. Speech is Appropriate. Mood is euthymic. Affect is full. Thoughts are linear and logical. No evidence of psychosis. Reviewed daily check in sheet and pt reports 3/5 for suicidal thoughts and 2/5 for intent. This is decreased from yesterday. Pt met with her primary therapist before group to address self-harm urges. Client Response/Progress/Benefit: [] Pt was an active participant in group discussions. Provided feedback on short video on mindfulness. Daily symptom tracker notes 4/5 for depression, anxiety, and irritability. Reports 3/5 for self-harm urges. Pt described being anxious and dysregulated this AM. She wrote her ex and email responding to a text that he had sent earlier this week. She reports urge to leave IOP today and self-harm. I wanted to go home, get a razor, and cut things up. Long-standing hx of self-injurious behaviors to cope with distress. Insight that as she has addressed recent chaos in her life overall she is stabilizing which from her perspective in uncomfortable. She has a perception that if her mood stabilizes she has to work on her trauma which has resulted in her shifting her focus to trauma. Increased trauma triggers have resulted. Some insight of self-sabotage behaviors. No progress noted. Regression. Beneifted from group support, encouragement and feedback. Willl continue in IOP to maintain safety, increase healthy coping, and prevent decompensation. Narrative Note: []
--- NOTE | 2024-07-26 10:15 | BH.SGPN.GN ---
Behaviors/Verbalizations/Mental Status: [] Pt alert and oriented, casually dressed and groomed. Eye contact good. Motor activity appropriate. Speech within normal limits. Affect congruent, mood content. Thoughts linear, logical, no signs of hallucinations or delusions. Client Response/Progress/Benefit: []Pt an active participant in group discussions on defining conflict (internal/external) and possible benefits to conflict. Attentive during psychoeducation on conflict styles (avoidant, accommodating, competing, cooperative) and engaged during group discussion in which peers identified the benefits and consequences to each conflict style. Pt identified that she tends to be avoidant but tries to be cooperative. Benefited from increased awareness of the impact of conflict styles in mental health. Will continue in IOP tx to prevent decompensation, stabilize mood, and improve self-compassion. Narrative Note: []
--- NOTE | 2024-07-26 11:10 | BH.SGPN.GN ---
Behaviors/Verbalizations/Mental Status: []Client alert and oriented, casually dressed and groomed. Eye contact good. Motor activity appropriate. Speech within normal limits. Affect congruent, mood euthymic. Thoughts linear, logical, no signs of hallucinations or delusions. Client Response/Progress/Benefit: [] Pt engaged in session AEB contributing to discussion and engaging in small group. Attentive during discussion on strategies for more effectively managing conflict in personal life. Pt noted current conflict resolution style uses the most is accommodating which she recognizes reinforces negative thoughts about herself. Pt participated in small group for activity and did well practicing how to manage conflict scenarios. Pt given handout on fair fighting rules and how to identify common conflict barriers. Pt indicated what needs improvement in conflict for them. Appeared to benefit from gaining strategies to help Pt better manage conflict. Will continue IOP tx improve distress tolerance, challenge distortions, and prevent decompensation.
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
--- NOTE | 2024-07-30 09:37 | BH.MDN_ITS ---
Multi-Disciplinary Note Note 60-min Individual: Time Started:: 08:29 Date: 07/30/24 Purpose of session/treatment goals addressed:: Purpose of session was to address treatment plan goal #1 obj #1 and goal #2 obj #1 Eye Contact:: Good Motor Activity:: Appropriate Appearance:: Casual Speech:: Appropriate Mood:: Euthymic Affect:: Congruent Thoughts:: Linear, Logical and No evidence of hallucinations/delusions noted Staff Interventions:: motivational interviewing, CBT techniques, discharge planning and goal setting Client Response:: Pt receptive of session, actively engaged throughout. Reports overall she is doing well and ?starting to feel more like myself?. Expressed a desire to get back to doing more and reengage with her value of helping others. Expressed uncertainty of how she would like to do that and indicated some thoughts of going back to school to pursue social work. Insight that she would benefit from continuing to focus on maintaining stability as it will be difficult for her to help support others if she is not taking care of herself. Shared plans to look into increasing her physical activity as this was encouraged by her physical therapist. Noted that her employer does offer a gym pass as one of the employee benefits and believes this would be a good way to fill her time post IOP d/c. Plans to look further into this and begin walking at the [facility] in the meantime, as this is a coping skill pt had previously found beneficial. Went on to describe primary stressor as an influx in behavioral issues with her middle child who has a diagnosis of Autism. Increased fatigue due to having to do more physical holds and addressing his outbursts both at home and school. Reports that he will have fewer supports once the school year ends next month which is a concern. Noted that she wishes she knew more caregivers with children who have similar struggles. Unsure of is there are caregiver support groups in the immediate area. Pt expressed interest in looking into this, as well as open to additional supportive resources for autism. Pt and therapist will research local resources. Risks/Concerns:: Pt denies SI, plan, or intent as of this date 07/30/24 Progress Toward Goals/Plan:: Progress noted AEB pt continued reports of improved mood and consistent skill application. More future oriented and expresses hopefulness for the future. Shared improved ability to regulate her emotions when caregiving. Continues to report ongoing feelings of being overwhelmed by her anupama responsibilities and fear of the other shoe dropping. Struggles with confidence in her ability to maintain stability without continued encouragement. Encouraged to work towards reducing isolation and increasing time with social supports. Recommended continued IOP tx to maintain mood stability, increase self-confidence, and prevent decompensation. Time Stopped:: 09:30
== END 2024-07-31 23:59 ==
LOC: BHIOP 07:09
PROVIDERS: PCP Student in an Organized Health Care Education/Training Program; Referring Provider Psychiatry & Neurology Psychiatry; Visit Provider Psychiatry & Neurology Psychiatry
DX: F31.81 Bipolar II disorder (principal); F60.3 Borderline personality disorder; F41.1 Generalized anxiety disorder; F43.10 Post-traumatic stress disorder, unspecified
CPT/HCPCS: H2012; H2020; S9480; 90832; 90834; 90837

== ENCOUNTER 2024-08-01 07:33 | Outpatient (RCR) | payer MEDICAID, SELFPAY ==
[2024-08-01 00:13] VITALS: BP 131/86; PULSE 79
--- NOTE | 2024-08-01 09:00 | BH.SGPN.GN ---
Behaviors/Verbalizations/Mental Status: [] Pt alert and oriented, neatly dressed and groomed. Eye contact good. Motor activity appropriate. Speech within normal limits. Affect congruent, mood euthymic. Thoughts linear, logical, no signs of hallucinations or delusions. Reviewed pt?s symptom tracker, no risk for suicidal ideation, plan, or intent 08/01/24. Client Response/Progress/Benefit: []Pt was an active participant in group discussions. Attentive. Able to identify mental health wins including driving in the rain without getting too anxious, using grounding skills to manage anxiety, and making all the doctor appointments she has had recently. Pt's stressor today is ?I?m setting all these boundaries that are good for me, but I?m realizing I don?t know who I am outside of my relationship.? Pt received supportive statements from peers and feedback from therapist. ?Pt is feeling cautiously optimistic.? this morning. Pt receptive to feedback from peers which pt reported was helpful. Progress noted. Benefited from group support, encouragement, and feedback. Will continue IOP tx to prevent decompensation, maintain healthy boundaries, and increase distress tolerance skills. ??? Narrative Note: []
--- NOTE | 2024-08-01 10:10 | BH.SGPN.GN ---
Behaviors/Verbalizations/Mental Status: [] Client alert and oriented, casually dressed and groomed. Eye contact good. Motor activity appropriate. Speech within normal limits. Affect congruent, mood euthymic. Thoughts linear, logical, no signs of hallucinations or delusions. Client Response/Progress/Benefit: [] Client responded well to session, contributing to discussion and engaged during the activity. Attentive during discussion on the quote. Group identified the benefits of change which included: increased confidence, better adaptability, improving mental health, and getting out of bad circumstances. Worked with the group to identify barriers to change, which included: uncomfortable emotions such as anxiety/depression, lack of motivation, external variables, and low self image. Client also reported reflecting on past negative experiences can keep people from making changes. Client participated along with group in activity where they identified and discussed the emotions related to change. Client shared how people in her life has gotten in way of her making change. Benefited from increased awareness and understanding of emotions, benefits, and barriers related to change. Will continue IOP tx to continue to combat distortions that reinforce low self-esteem, anxiety, and depression. Narrative Note: []
--- NOTE | 2024-08-01 11:10 | BH.SGPN.GN ---
Behaviors/Verbalizations/Mental Status: [] Client alert and oriented, casually dressed and groomed. Eye contact good. Motor activity appropriate. Speech within normal limits. Affect congruent, mood euthymic. Thoughts linear, logical, no signs of hallucinations or delusions. Client Response/Progress/Benefit: [] Client responded well to session, attentive. Did well to process activity and work with group to relate the strategies used to overcome barriers in the activity to managing change in own life. Client identified a change would like to make is putting needs above their partner. Client stated currently in action stage. Reported would like to recognize what own needs are and how they can meet them. Appeared to benefit from identifying a small goal to work towards. Client will continue IOP tx to increase self care, gain healthy coping skills, and improve daily functioning. Narrative Note: []
--- NOTE | 2024-08-02 09:05 | BH.SGPN.GN ---
Behaviors/Verbalizations/Mental Status: [] Eye contact is good. Motor activity is appropriate. Appearance is casual. Speech is Appropriate. Mood is euthymic. Affect is full. Thoughts are linear and logical. No evidence of psychosis. Reviewed daily check in sheet and pt reports 10 for suicidal ideation on the [facility] scale. Baseline. Client Response/Progress/Benefit: [] Pt was an active participant in group discussions. Attentive. Daily symptom tracker notes 3/5 for depression and 4/5 for anxiety. Able to identify mental health wins and healthy choices. Reports that she is maintaining boundaries with her ex. She is struggling with ?finding time for myself for self-care?. She is a single mother of 3 children which is ?stressful?. Her time here in IOP and at work are two spaces in which she has respite from the children. Group empathized with her stress and struggles which was beneficial. Group offered a few suggestions as well. Smiling and engaged with group and offered insightful feedback to peers on several topics. Progress noted. Will continue in IOP to maintain safety, stabilize mood, and improve overall functioning. Narrative Note: []
--- NOTE | 2024-08-02 10:10 | BH.SGPN.GN ---
Behaviors/Verbalizations/Mental Status: []Pt alert and oriented, casually dressed and groomed. Eye contact good. Motor activity appropriate. Speech within normal limits. Mood is anxious. Affect is congruent. Thoughts linear, logical, no signs of hallucinations or delusions. Client Response/Progress/Benefit: [] Pt was an active?participant in group discussions and experiential activity. Worked with peers to identify benefits of healthy relationships which included; support, shared experiences, laughter, understanding, and perspective challenge. Group identified factors that lead to unhealthy relationships which included; fear of being alone, not knowing red flags, not feeling worthy, and being used to ?chaos.? Benefited from increased insight and awareness of benefits of healthy relationships and factors that contribute to unhealthy relationships. Will continue IOP to reduce use of unhealthy coping skills, maintain boundaries, and improve self-compassion. Narrative Note: []
--- NOTE | 2024-08-02 11:10 | BH.SGPN.GN ---
Behaviors/Verbalizations/Mental Status: [] Pt alert and oriented, casually dressed and groomed. Eye contact good. Motor activity appropriate. Speech within normal limits. Affect full, mood euthymic and anxious. Thoughts linear, logical, no signs of hallucinations or delusions. Client Response/Progress/Benefit: [] Pt responded well to session, engaged and taking notes throughout. Worked with group to connect components of the experiential activity with characteristics of healthy and unhealthy relationships. Attentive during psychoeducation about characteristics of healthy, unhealthy, and abusive relationships. Pt reported she has some healthy traits and she wants to work on ?continuing my boundaries and not giving in.? Appeared to benefit from identifying current healthy relationship attributes and an area Pt wants to work on to build healthier relationships. Pt to continue IOP tx to promote self-care, improve self-confidence, and increase use of healthy coping skills. ? Narrative Note: []
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
--- NOTE | 2024-08-06 09:02 | BH.SGPN.GN ---
Behaviors/Verbalizations/Mental Status: [] Client alert and oriented, casual appearance. Eye contact good. Motor activity restless. Speech within normal limits. Affect congruent, mood dysthymic. Thoughts linear, logical, no signs of hallucinations or delusions. Reviewed client's symptom tracker, client indicated a 2/5, with 5 being severe for suicidal thoughts and a 1/5 for suicidal intention. Client has chronic suicidal thoughts and this is below her baseline. Client identifies her children as protective factors. Client future oriented. Does not appear to be at imminent risk to hurt self or others. Client Response/Progress/Benefit: [] Client responded well to session AEB listening to others and sharing thoughts/feelings. Client reported mental positive as celebrating what would have been her daughter's 3-year birthday by buying a cake and celebrating with her family. Client stated she also attended a brunch for parents that have lost a child and she chose to be vulnerable by sharing with others at this event what she has been helpful to her in her grieving process. Client noted additional mental positive as being able to get several tasks completed off her to do list. Client stated current stressor as continuing to text with her ex which is leading her to feel confused because at times he will bring up their daughter but then does not take it beyond saying that he misses her. Client encouraged to look at the facts of his behavior versus the what if's. Appeared to benefit from support from peers. Will continue IOP tx to challenge distortions, increase healthy coping, and prevent decompensation. Narrative Note: []
--- NOTE | 2024-08-06 10:10 | BH.SGPN.GN ---
Behaviors/Verbalizations/Mental Status: [] Pt alert and oriented, casually dressed and groomed. Eye contact good. Motor activity appropriate. Speech within normal limits. Affect congruent, mood anxious and depressed. Thoughts linear, logical, no signs of hallucinations or delusions. Client Response/Progress/Benefit: [] Pt participated during small group discussions. Attentive during psychoeducation about defense mechanisms. Showed engagement during small group discussions and helped group identify which defense mechanisms were maladaptive, adaptive, or ?somewhere in the soto.? Pt worked with small group on identifying how each defense mechanism can impact mental health and gave examples. ?Seemed to benefit from gaining awareness about the different defense mechanisms. Pt to continue IOP tx to maintain safety, prevent decompensation, provide suppurt, encourage use of heealthy coping skills, and improve functioning. Narrative Note: []
--- NOTE | 2024-08-06 11:10 | BH.SGPN.GN ---
Behaviors/Verbalizations/Mental Status: []Pt alert and oriented, casually dressed and groomed. Eye contact good. Motor activity appropriate. Speech within normal limits. Affect congruent, mood anxious. Thoughts linear, logical, no signs of hallucinations or delusions. Client Response/Progress/Benefit: [] Pt responded well to session, participating in activity and small group discussion. Group reviewed the rest of the defense mechanisms and discussed how these are adaptive, maladaptive, or somewhere in the soto. Pt's defense mechanisms included intellectualization, humor, and self-discipline. Pt reports most of her defense mechanisms are ?soto because they help but they also keep me stuck.? Pt listened to title insurance sales representative teach different skills to help pt?s cope with or change their defense mechanisms. Pt appeared to benefit from gaining insight to the different defense mechanisms and learning coping skills. Pt will continue IOP tx to prevent decompensation, improve distress tolerance skills, and increase self-confidence. Narrative Note: []
--- NOTE | 2024-08-06 11:10 | BH.SGPN.GN ---
Behaviors/Verbalizations/Mental Status: []Pt alert and oriented, casually dressed and groomed. Eye contact good. Motor activity appropriate. Speech within normal limits. Affect congruent, mood anxious. Thoughts linear, logical, no signs of hallucinations or delusions. Client Response/Progress/Benefit: [] Pt responded well to session, participating in activity and small group discussion. Group reviewed the rest of the defense mechanisms and discussed how these are adaptive, maladaptive, or somewhere in the soto. Pt's defense mechanisms included intellectualization, humor, and self-discipline. Pt reports most of her defense mechanisms are ?soto because they help but they also keep me stuck.? Pt listened to air quality manager teach different skills to help pt?s cope with or change their defense mechanisms. Pt appeared to benefit from gaining insight to the different defense mechanisms and learning coping skills. Pt will continue IOP tx to prevent decompensation, improve distress tolerance skills, and increase self-confidence. Narrative Note: []
--- NOTE | 2024-08-07 09:00 | BH.SGPN.GN ---
Behaviors/Verbalizations/Mental Status: [] Pt alert and oriented, neatly dressed and groomed. Eye contact good. Motor activity appropriate. Speech within normal limits. Affect congruent, mood depressed and disconnected. Thoughts linear, logical, no signs of hallucinations or delusions. Reviewed pt?s symptom tracker, no risk for suicidal ideation, plan, or intent 08/07/24. Client Response/Progress/Benefit: []Pt was an active participant in group discussions. Attentive. Able to identify mental health wins including using opposite action and thought challenging as pt acknowledges she wants to give up sometimes, but she knows her kids need her. Pt's stressor today is ?I?ve been feeling very disconnected lately.? Pt is feeling disconnected? this morning. Pt receptive to feedback from peers which pt reported was helpful. Pt was reminded to give herself credit for using healthy coping skills instead of self-harm. Progress noted. Benefited from group support, encouragement, and feedback. Will continue IOP tx prevent decompensation, improve distress tolerance, and increase self-confidence. Narrative Note: []
--- NOTE | 2024-08-07 12:07 | PCM.BH.PN ---
Progress Note Progress Note: History of Present Illness/Interim History: The patient is a 28-year-old single female with a history of bipolar 2 disorder, borderline personality disorder and anxiety who is seen in follow-up at the [facility] behavioral health [facility]. I last saw the patient 6 weeks ago and according to staff she has been engaged in the program. She has been seeing her outpatient psychiatrist every 2 weeks but has not been available when I have been able to see her. She feels her situation has improved somewhat and her mood is less depressed now. She last cut herself 2 weeks ago but denies any current thoughts of self-harm. She remains somewhat anxious. She denies any hopelessness now but still has occasional worthlessness and mild anhedonia. She still has passive thoughts of off-and-on and still has passive suicidal ideation off and on but denies active suicidal ideation and denies plan for suicide. She also denies homicidal ideation, hallucinations or delusions. She has not come down on her Mountain Dew and is still drinking 2 L a day despite our recommendation to decrease her caffeine use. Current Psychiatric Medications: [] Seroquel 100 mg p.o. nightly (increased to 150 but had side effects so went down a few weeks ago); propranolol 10 mg p.o. as needed; Lexapro 20 mg p.o. daily. Mental Status Examination: [] The patient is a 28-year-old female who appears normal for stated age and is casually dressed and groomed with good hygiene. She has no psychomotor agitation or retardation. Eye contact is good and speech is normal rate and rhythm and fluent with no pressure. Mood is depressed. Affect is mildly constricted. Thought process is goal-directed and organized. Thought content: There is evidence of passive thoughts of and passive suicidal ideation. There is no evidence of thoughts of self-harm, active suicidal ideation, plan for suicide, homicidal ideation, hallucinations, delusions or symptoms of glen or hypomania. Reality testing is intact. Judgment is intact. Insight is fair. Impulsivity is high. Diagnoses: [] 1. Bipolar 2 disorder 2. Borderline personality disorder 3. Generalized anxiety disorder 4. PTSD 5. Primary support issues Plan: [] The patient will continue the [facility] and behavioral health as the structure, support, education and group therapy will hopefully prevent worsening of the patient's symptoms which could require hospitalization. She agrees to continue using constructive strategies and techniques to avoid self-harm. The risk, options, possible complications and side effects of the medications were again discussed with the patient. No medication changes were made today. Recommended again that she decrease her Mountain Dew because it is a anxiogenic. She will continue to follow-up with her outpatient providers and I will see her in follow-up while she is in the IOP.
--- NOTE | 2024-08-08 09:05 | BH.SGPN.GN ---
Behaviors/Verbalizations/Mental Status: [] Eye contact is good. Motor activity is appropriate. Appearance is casual. Speech is Appropriate. Mood is dysthymic and anxious. Affect is congruent. Thoughts are linear and logical. No evidence of psychosis. Reviewed daily check in sheet and pt reports 3/5 for suicidal thoughts and 2/5 for intent. Long-standing SI and these scores are her baseline. No imminent risk. Client Response/Progress/Benefit: [] Pt was an active participant in group discussions. Attentive. Daily symptom tracker notes 4/5 for depression, anxiety, irritability, and self-harm urges. Shared with the group that she took her autistic son to the psych ER at [facility] yesterday for an emergency evaluation. Briefly discussed the events that lead to evaluation. ? My son?s behavior problems have increased?. Shared that currently he can?t be alone or unsupervised. Admits that son?s recent struggles have also impacted her mental health ? it?s taken a lot out of me?. Group was supportive and encouraged use of healthy coping and self-care during times of stress and crisis to prevent decompensation. She reports that she is practicing mindfulness and playing the piano to help destress, distraction, and ground herself. Will continue in [facility] to maintain safety, increase healthy coping, and prevent decompensation. Narrative Note: []
--- NOTE | 2024-08-08 09:05 | BH.SGPN.GN ---
Behaviors/Verbalizations/Mental Status: [] Eye contact is good. Motor activity is appropriate. Appearance is casual. Speech is Appropriate. Mood is dysthymic and anxious. Affect is congruent. Thoughts are linear and logical. No evidence of psychosis. Reviewed daily check in sheet and pt reports 3/5 for suicidal thoughts and 2/5 for intent. Long-standing SI and these scores are her baseline. No imminent risk. Client Response/Progress/Benefit: [] Pt was an active participant in group discussions. Attentive. Daily symptom tracker notes 4/5 for depression, anxiety, irritability, and self-harm urges. Shared with the group that she took her autistic son to the psych ER at [facility] yesterday for an emergency evaluation. Briefly discussed the events that lead to evaluation. ? My son?s behavior problems have increased?. Shared that currently he can?t be alone or unsupervised. Admits that son?s recent struggles have also impacted her mental health ? it?s taken a lot out of me?. Group was supportive and encouraged use of healthy coping and self-care during times of stress and crisis to prevent decompensation. She reports that she is practicing mindfulness and playing the piano to help destress, distraction, and ground herself. Will continue in [facility] to maintain safety, increase healthy coping, and prevent decompensation. Narrative Note: []
--- NOTE | 2024-08-08 10:10 | BH.SGPN.GN ---
Behaviors/Verbalizations/Mental Status: []Pt alert and oriented, casually dressed and groomed. Eye contact fair. Motor activity appropriate. Speech within normal limits. Affect congruent, mood dysthymic. Thoughts linear, logical, no signs of hallucinations or delusions. Client Response/Progress/Benefit: [] Pt responded well to session, attentive and engaged. Group participated in the discussion defining stigma as well as what stigma has kept pt's from doing in their lives. Pt stated mental health stigma has kept pt from setting/maintaining boundaries, trying new things, meeting people, and creating healthy relationships. Pt worked with peers to begin discussion of what reinforces stigma, both socially and internally, and this was discussed further in the next group. Pt appeared to benefit from learning about the different types of stigma as well as gaining awareness of how stigma has personally impacted pt. Pt will continue IOP tx to increase consistent use of ehatlhy coping skills, improve emotion regulation, and prevent decompensation.
--- NOTE | 2024-08-08 11:15 | BH.SGPN.GN ---
Behaviors/Verbalizations/Mental Status: []Pt alert and oriented, casually dressed and groomed. Eye contact good. Motor activity appropriate. Speech within normal limits. Affect congruent, mood dysthymic. Thoughts linear, logical, no signs of hallucinations or delusions. Client Response/Progress/Benefit: [] Pt engaged participant AEB participating in the activity, providing input during small group discussion, and listening attentively to others. Pt appeared to connect with discussion in the benefits of addressing mental health stigma which included: improved relationships, increased willingness to seek help, increased happiness, and improved confidence. Group brainstormed strategies to combat social and perceived stigma. Pt shared one thing pt can do to combat stigma is to prioritize time for self-care. Appeared to benefit from increasing awareness of strategies to combat stigma. Pt is to continue IOP to challenge distorted thoughts, improve healthy coping skills, and prevent decompensation. Narrative Note: []
--- NOTE | 2024-08-08 14:55 | BH.MDN ---
Multi-Disciplinary Note Note 45-min Individual: Time Started:: 09:40 Date: 08/08/24 Purpose of session/treatment goals addressed:: Purpose of session was to aid pt in processing recent stressor and begin discharge planning. Eye Contact:: Good Motor Activity:: Appropriate Appearance:: Casual Speech:: Appropriate Mood:: Dysthymic Affect:: Congruent Thoughts:: Linear, Logical and No evidence of hallucinations/delusions noted Staff Interventions:: thought challenging, CBT techniques, discharge planning and strengths perspective Client Response:: Pt receptive of session, actively engaged throughout. Worked with therapist to process incident from previous day, in which pt?s son became dysregulated and violent resulting in assessment for inpatient psychiatric hospitalization. Pt shared that they ultimately decided not to hospitalize him and provided several resources for additional support. Described feeling exhausted and sad for her son today. Processed emotions surrounding her son experiencing these things as a 5-year-old and thoughts/feelings that she ?should?ve done more? to prevent it. Did well to work with therapist on challenging the associated distortions. Used strength?s based approaches to identify areas of progress and resilience in how she was able to support her son throughout the experience without becoming dysregulated herself. Pt identified use of grounding skills, providing him with reassurance, advocating for his needs, reminding herself this experience is not the same as her first inpatient hospitalization, and inquiring further about additional supportive resources. Shared that she is trying to remind herself the experience, though unwanted, did result in referrals to [facility] therapy and an IEP at school which she has been advocating for. Pt went on to note that although she is grateful for the resources, she is feeling overwhelmed by the amount of time and energy she has been putting into navigating everything. Pt reports at times wishing she had more social support and at times feels lonely within the caregiving journey. Receptive of recommendation to looking into case management and in home based therapy options to reduce some of the overall stress load. Admits to spending less time on her own self-care which is likely contributing to exhaustion. Recognizes she feels better when prioritizing self-care though struggles to consistently do so. Discussed ways to incorporate self-care into her daily life, such as reading during soccer practice, playing piano, deep breathing, listening to music she enjoys, and lowering her expectations of self. Plans to craft this afternoon as well. Risks/Concerns:: Pt denies SI, plan, or intent as of this date 08/08/24 Progress Toward Goals/Plan:: Progress noted. Pt continues to do well with maintaining boundaries established with ex-boyfriend and reports reduction in inappropriate guilt surrounding these boundaries. Improved mood stability and use of healthy distress tolerance skills as well. Pt reports improved engagement in positive self-talk and has begun daily affirmations with her children. Continues to struggle with unrealistic expectations of herself, negative core beliefs, and inconsistent skill application. Recommended continued IOP tx to improve consistency, prevent decompensation, and promote continues skill building
--- NOTE | 2024-08-13 09:05 | BH.SGPN.GN ---
Behaviors/Verbalizations/Mental Status: [] ?Eye contact is good. Motor activity is appropriate. Appearance is casual. Speech is Appropriate. Mood is euthymic. Affect is congruent. Thoughts are linear and logical. No evidence of psychosis. Reviewed daily check in sheet and no reports of suicidal ideations or intent. Client Response/Progress/Benefit: [] ?Pt was an active participant in group discussions. Attentive. Did well to identify 2 mental health wins including using thought challenging and distress tolerance skills to ground herself in order to regulate her children when they were upset this morning. Additional win noted as advocating for her son's needs and getting him medication for his behavioral issues. Stressor noted as ongoing frustrations with navigating co-parenting. Did well to identify what is and is not in her control regarding the situation, identifying healthy skills use to manage this stressor. Progress noted. Benefited from group support, encouragement, and feedback. Will continue in IOP to prevent decompensation, promote mood stability, and increase healthy coping consistency. Narrative Note: []Behaviors/Verbalizations/Mental Status: [] ?Eye contact is good. Motor activity is appropriate. Appearance is casual. Speech is Appropriate. Mood is euthymic. Affect is congruent. Thoughts are linear and logical. No evidence of psychosis. Reviewed daily check in sheet and no reports of suicidal ideations or intent. Client Response/Progress/Benefit: [] ?Pt was an active participant in group discussions. Attentive. Did well to identify 2 mental health wins including using thought challenging and distress tolerance skills to ground herself in order to regulate her children when they were upset this morning. Additional win noted as advocating for her son's needs and getting him medication for his behavioral issues. Stressor noted as ongoing frustrations with navigating co-parenting. Did well to identify what is and is not in her control regarding the situation, identifying healthy skills use to manage this stressor. Progress noted. Benefited from group support, encouragement, and feedback. Will continue in IOP to prevent decompensation, promote mood stability, and increase healthy coping consistency. Narrative Note: []
--- NOTE | 2024-08-13 10:05 | BH.SGPN.GN ---
Behaviors/Verbalizations/Mental Status: [] Eye contact is good. Motor activity is appropriate. Appearance is casual. Speech is Appropriate. Mood is anxious and depressed. Affect is congruent. Thoughts are linear and logical. No evidence of psychosis. Client Response/Progress/Benefit: [] Pt was engaged and participating throughout, providing input and taking notes. Attentive during psychoeducation on anxiety and cognitive triangle. Participated in an interactive discussion on defining anxiety and identifying cognitive and physiological symptoms of anxiety. The group discussed helpful vs harmful anxiety. Pt identified their physical/physiological signs of anxiety which includes:migraines, grinding teeth, muscle tensions, and nausea Benefited from increased awareness and insight on anxiety and its impact. Will continue in IOP to prevent decompensation, maintain safety, and increase healthy coping. Narrative Note: []
--- NOTE | 2024-08-13 11:10 | BH.SGPN.GN ---
Behaviors/Verbalizations/Mental Status: []Pt alert and oriented, casually dressed and groomed. Eye contact good. Motor activity appropriate. Speech within normal limits. Affect congruent, mood euthymic. Thoughts linear, logical, no signs of hallucinations or delusions. Client Response/Progress/Benefit: [] Pt was an active participant AEB pt providing input and listening attentively to peers. Attentive during psychoeducation on mindfulness coping skills and their impact on reducing anxiety and improving overall mental health wellness. Group was able to identify self-soothing and mind-based coping skills which included: 5-senses, meditation, deep breathing, TIPP, thought challenging, categories, and progressive muscle relaxation. Pt also participated with peers in practicing T.I.P.P during session. Pt would like to work on using more self-soothing statements to remind herself of the hardships she has overcome in the past. Appeared to benefit from increasing repertoire of anxiety reduction skills. Pt will continue IOP to increase distress tolerance skills, improve daily functioning, and reduce negative self-talk. Narrative Note: []
--- NOTE | 2024-08-15 09:05 | BH.SGPN.GN ---
Behaviors/Verbalizations/Mental Status: [] Eye contact is good. Motor activity is appropriate. Appearance is casual. Speech is Appropriate. Mood is dysthymic and anxious. Affect is congruent. Thoughts are linear and logical. No evidence of psychosis. Reviewed daily check in sheet and pt reports 04/12 for suicidal ideations on the SBIL scale. Client Response/Progress/Benefit: [] pt was an active participant in group discussions. Attentive. Daily symptom tracker notes 06/05 for depression, anxiety, irritability, and self-harm urges. Identified mental health win as ? I didn?t beat myself up yesterday?. Shared several changes in her life and routine which has been disruptive. Elaborated on the impact of these changes on her mental health. Group encouraged her to identify strategies to help her adjust to changes. She discussed radical acceptance. Progress noted. Benefited from group support, encouragement, and feedback. Will continue in IOP to maintain safety, prevent decompensation, and increase healthy coping. Narrative Note: []
--- NOTE | 2024-08-15 10:10 | BH.SGPN.GN ---
Behaviors/Verbalizations/Mental Status: []Pt alert and oriented, neatly dressed and groomed. Eye contact good. Motor activity appropriate. Speech within normal limits. Affect congruent, mood euthymic and anxious. Thoughts linear, logical, no signs of hallucinations or delusions Client Response/Progress/Benefit: []Pt took notes and contributed to group discussions. Attentive during psychoeducation on growth mindset. Interactive group discussion on fixed mindset in which group verbalized their current fixed mindsets and how they affect their mental health. Pt shared common fixed mindset thoughts they have. These thoughts lead to feeling disheartened about self and the world, not reaching out to others for help, and self-criticism. Pt shared a personal fixed thought I cannot succeed in life because of my mental illness.? Pt able to connect negative impact fixed thoughts have on functioning. Pt benefited from increased awareness of growth mindset and fixed thoughts and how fixed thoughts impact their mental health. Will continue IOP tx to prevent decompensation, reinforce distress tolerance skills, and increase self-confidence Narrative Note: []
--- NOTE | 2024-08-15 11:15 | BH.SGPN.GN ---
Behaviors/Verbalizations/Mental Status: []Pt alert and oriented, neatly dressed and groomed. Eye contact fair. Motor activity appropriate. Speech within normal limits. Affect congruent, mood content. Thoughts linear, logical, no signs of hallucinations or delusions. Client Response/Progress/Benefit: [] Pt was an active participant during activity and discussion. Pt did well to remain attentive and participate as group worked on identifying characteristics and benefits of adopting a growth mindset. Worked with fellow participants in reframing the example fixed thoughts into growth mindset thoughts. Pt worked on changing own fixed thought and reframed the thought to ?I can succeed in life by learning to apply her coping skills in her daily routine.? Pt appeared to benefit from challenging own thoughts and engaging in the activity. Pt will continue IOP tx to improve distress tolerance, build confidence, maintain healthy boundaries, and prevent decompensation.
--- NOTE | 2024-08-16 09:00 | BH.SGPN.GN ---
Behaviors/Verbalizations/Mental Status: [] Eye contact is good. Motor activity is appropriate. Appearance is casual. Speech is Appropriate. Mood is euthymic. Affect is congruent. Thoughts are linear and logical. No evidence of psychosis. Reviewed daily check in sheet and no reports of suicidal ideations or intent. Client Response/Progress/Benefit: [] Pt was an active participant in group discussions. Attentive. Did well to identify 2 mental health wins including using thought challenge skills to prevent use of personalization after her daughter got into trouble at school. Additional win noted as making progress in sitting with the uncomfortable and allowing small changes in routine without becoming completely thrown off. Stressor noted as next week being her last week in IOP tx. Did well to identify areas of progress and skills to maintain gains. Progress noted. Benefited from group support, encouragement, and feedback. Will continue in IOP to prevent decompensation, promote mood stability, and increase healthy coping consistency. Narrative Note: []
--- NOTE | 2024-08-16 10:00 | BH.SGPN.GN ---
Behaviors/Verbalizations/Mental Status: []Pt alert and oriented, neatly dressed and groomed. Eye contact good. Motor activity appropriate. Speech within normal limits. Affect congruent, mood euthymic. Thoughts linear, logical, no signs of hallucinations or delusions. Client Response/Progress/Benefit: [] Pt participated during the group discussion, providing input and remaining attentive during psychoeducation. Participated in experiential activity. Pt contributed during interactive discussion on the consequences of unhealthy expression of emotions. Worked with group to identify several consequences which included hurting relationships and isolating oneself. Contributing during interactive discussion on common potholes to effectively communicating. Pt was able to relate and make connections between the experiential activity and the overall topic, managing emotions through activity by using calming skills and self-talk. Pt shared she started to personalize in the activity, but the group helped pt challenge this. Benefited from increased awareness of how stress and emotions can impact one's ability to communicate. Will continue in IOP to promote mood stability, increase self-confidence, and reduce negative self-talk. ?? Narrative Note: []
--- NOTE | 2024-08-16 10:07 | BH.MDN ---
Multi-Disciplinary Note Note 45-min Individual: Time Started:: 08:08 Date: 08/16/24 Purpose of session/treatment goals addressed:: Purpose of session was to address treatment plan goal #1 obj #2 and goal #2 obj #1 Eye Contact:: Good Motor Activity:: Appropriate Appearance:: Casual Speech:: Appropriate Mood:: Euthymic and Anxious Affect:: Congruent Thoughts:: Linear, Logical and No evidence of hallucinations/delusions noted Staff Interventions:: thought challenging, motivational interviewing, CBT techniques and goal setting Client Response:: Pt receptive of session, actively engaged throughout. Reports that since starting her son on a mood stabilizer, he has been more regulated and experiencing fewer behavioral issues. Pt reports that she has also been advocating for his needs with the school and is scheduled to have an IEP meeting with them next week. Went on to share that although her son is showing improvements, her daughter recently got into trouble at school and now has long term. Shared that she is doing well not to internalize this as an issue with her parenting. Reports that she is also using this as an opportunity to introduce her daughter to emotion release and processing via journaling. Pt has also been journaling with her daughter which she reports has been helpful. Reports biggest stressor as preparing for the end of the school year and feeling overwhelmed with having all three children home during the summer break. Reports feeling she has a lot on her ?to-do? list and is feeling overwhelmed as a result. Receptive of working with therapist to break down her ?to-do? list by priority and difficulty. In doing so, pt was able to recognize she had been assuming the list was overwhelming but looking at it written down noted feeling it was manageable. Identified plans to contact the [facility] to sign up for a summer membership today, as well as look into free events at the library. Risks/Concerns:: Pt denies SI, plan, or intent as of this date 08/16/24 Progress Toward Goals/Plan:: Progress noted. Continues to report improved mood stability and increased consistency in application of coping skills. Doing well to challenge use of personalization when it comes to parenting and is applying more consistent self-compassion messages. Pt reports some anxiety about upcoming summer schedule but is identifying strategies to manage this stressor. Pt will continue in IOP one more week to prevent decompensation and have additional support as she attends her son's upcoming IEP meeting Time Stopped:: 09:57
--- NOTE | 2024-08-16 11:00 | BH.SGPN.GN ---
Behaviors/Verbalizations/Mental Status: []Client alert and oriented, casually dressed and groomed. Eye contact good. Motor activity appropriate. Speech within normal limits. Affect congruent, mood euthymic and stressed. Thoughts linear, logical, no signs of hallucinations or delusions. Client Response/Progress/Benefit: []Client engaged in session AEB client listening attentively to peers and providing input. Attentive during psychoeducation on 4 zones of regulation. Pt able to identify feelings and behaviors for each zone. Pt identified coping skills one can use to support self in each zone. Pt stated belief that pt is in the yellow-green zone today. Pt reports plan to use opposite action on some tasks I've been avoiding and giving herself credit. Benefited from increased education on zones of regulation or stages of alertness for emotions and healthy coping skills to use for each zone. Pt will continue IOP tx to reinforce healthy coping skills, improve self-compassion skills, and reduce self-sabotaging behaviors. Narrative Note: []
--- NOTE | 2024-08-20 09:00 | BH.SGPN.GN ---
Behaviors/Verbalizations/Mental Status: [] ?Eye contact is good. Motor activity is appropriate. Appearance is casual. Speech is Appropriate. Mood is euthymic. Affect is congruent. Thoughts are linear and logical. No evidence of psychosis. Reviewed daily check in sheet and no reports of suicidal ideations or intent. Client Response/Progress/Benefit: [] ?Pt was an active participant in group discussions. Attentive. Did well to identify 2 mental health wins including preparing what she wants to say for her son's IEP meeting at the school tomorrow. Expressed some anxiety reagarding this. Additional win noted as using opposite action to join the parents vs. kids soccer game and finding it to be more enjoyable than expected. Stressor noted as her son's IEP meeting tomorrow. Did well to identify what is and is not in her control regarding the situation, identifying healthy skills use to manage this stressor. Progress noted. Benefited from group support, encouragement, and feedback. Will continue in IOP to prevent decompensation, promote mood stability, and increase healthy coping consistency. Narrative Note: []
--- NOTE | 2024-08-20 10:10 | BH.SGPN.GN ---
Behaviors/Verbalizations/Mental Status: [] Eye contact is good. Motor activity is appropriate. Appearance is casual. Speech is Appropriate. Mood is dysthymic. Affect is congruent. Thoughts are linear and logical. No evidence of psychosis. Client Response/Progress/Benefit: [] Client engaged participant at times during group session as evidenced by contributions during group discussions, appearing to listen to others, and taking notes. Client engaged in discussion about barriers that keep people from having difficult confrontations. Group identified potential reasons individuals avoid difficult conversations which included; feeling unworthy, assume it will cause conflict, difficulty being vulnerable, poor timing, fear of abandonment. Group also identified benefits to having crucial conversations which included; can help set boundaries, allows one to get across thoughts/feelings, can feel empowered, increase connections, and lead to healthier relationships. Client seemed to benefit from increased awareness and education about importance of having difficult conversations and recognizing the impact of avoiding such conversations. Client to continue IOP to prevent decompensation, maintain safety, and improve functioning. Narrative Note: []
--- NOTE | 2024-08-20 11:15 | BH.SGPN.GN ---
Behaviors/Verbalizations/Mental Status: []Pt alert and oriented, neatly dressed and groomed. Eye contact good. Motor activity appropriate. Speech within normal limits. Affect congruent, mood euthymic. Thoughts linear, logical, no signs of hallucinations or delusions. Client Response/Progress/Benefit: [] Pt was an active participant, engaged in activities and discussion. Pt able to identify ways they negatively contribute to crucial conversations and pt was engaged during psychoeducation of the different ways to build interpersonal effectiveness skills. Pt and peers practiced mirroring and active listening in partners. Group reviewed [employer] and used the handout to help map out how they would like a crucial conversation in their life to go. Pt identified an upcoming IEP meeting for her son as a crucial conversation pt needs to prepare for. Pt appeared to benefit from learning and practicing interpersonal effectiveness skills. Pt will continue IOP tx to promote mood stability, reduce negative self-talk, and improve distress tolerance. Narrative Note: []
--- NOTE | 2024-08-22 09:05 | BH.SGPN.GN ---
Behaviors/Verbalizations/Mental Status: [] Eye contact is good. Motor activity is appropriate. Appearance is casual. Speech is Appropriate. Mood is anxious. Affect is congruent. Thoughts are linear and logical. No evidence of psychosis. Reviewed daily check in sheet suicidal ideations were well below baseline. Client Response/Progress/Benefit: [] Pt was an active participant in group discussions. Attentive. Pt was an active participant in group discussion. Attentive. Daily symptom tracker notes 5 for depression and /5 for anxiety. Shared with the group that is her last day in IOP. Set to discharge successfully. Able to identify mental health wins and healthy habits. Discussed heightened stress and emotions related to IEP meeting yesterday for her son. She prepared for the meeting and believes that she advocated appropriately. It was semi-terrifying. She is anxious about discharging from IOP and is fearful of decompensation or self-sabotaging her life. Able to identify her progress as well as daily skills (journaling), reviewing her IOP binder, and other strategies to help maintain progress. Aftercare arranged with therapist and psychiatrist as well as aftercare group here at [facility]. Feeling hopeful. Benefited from group support, encouragement, and feedback. Will be discharge from [facility] today. Narrative Note: []
--- NOTE | 2024-08-22 09:05 | BH.SGPN.GN ---
Behaviors/Verbalizations/Mental Status: [] Eye contact is good. Motor activity is appropriate. Appearance is casual. Speech is Appropriate. Mood is anxious. Affect is congruent. Thoughts are linear and logical. No evidence of psychosis. Reviewed daily check in sheet suicidal ideations were well below baseline. Client Response/Progress/Benefit: [] Pt was an active participant in group discussions. Attentive. Pt was an active participant in group discussion. Attentive. Daily symptom tracker notes 5 for depression and /5 for anxiety. Shared with the group that is her last day in IOP. Set to discharge successfully. Able to identify mental health wins and healthy habits. Discussed heightened stress and emotions related to IEP meeting yesterday for her son. She prepared for the meeting and believes that she advocated appropriately. It was semi-terrifying. She is anxious about discharging from IOP and is fearful of decompensation or self-sabotaging her life. Able to identify her progress as well as daily skills (journaling), reviewing her IOP binder, and other strategies to help maintain progress. Aftercare arranged with therapist and psychiatrist as well as aftercare group here at [facility]. Feeling hopeful. Benefited from group support, encouragement, and feedback. Will be discharge from [facility] today. Narrative Note: []
--- NOTE | 2024-08-22 10:15 | BH.SGPN.GN ---
Behaviors/Verbalizations/Mental Status: []Eye contact is fair. Motor activity is appropriate. Appearance is casual. Speech is Appropriate. Mood is anxious and euthymic. Affect is congruent. Thoughts are linear and logical. No evidence of psychosis. Client Response/Progress/Benefit: [] Pt was an active participant in group discussions. Attentive during psychoeducation. Contributed during interactive discussions in which peers attempted to define crisis. Group identified crisis examples. Group also worked together to identify warning signs and unhealthy responses to crisis which included shutting down, isolation, avoidance, over-thinking, disordered eating, and self-harm. Pt identified top 3 warning signs as: urges to self-harm, collecting things like blades, and increased sensory sensitivity. Benefited from increased understanding of crisis and awareness of personal responses to crisis. Pt will discharge from IOP tx a pt has accomplished her tx goals and no longer meets criteria for IOP level of care. Narrative Note: []
--- NOTE | 2024-08-22 10:21 | BH.MDN ---
Multi-Disciplinary Note Note 45-min Individual: Time Started:: 08:19 Date: 08/22/24 Purpose of session/treatment goals addressed:: To review treatment progress and discuss strategies for continued maintenance. Another goal was to discuss discharge and aftercare. Eye Contact:: Good Motor Activity:: Appropriate Appearance:: Casual Speech:: Appropriate Mood:: Euthymic and Anxious Affect:: Congruent Thoughts:: Linear, Logical and No evidence of hallucinations/delusions noted Staff Interventions:: thought challenging, CBT techniques, discharge planning and strengths perspective Client Response:: Pt responded well to session, open to meeting with therapist. Pt reports she is overall doing well; however, today is feeling more anxious. Attributes this increase in anxiety to it being her last day, and fears that she will not be able to maintain the progress she has made when she no longer has the support of [facility] tx. Did well to work with therapist on challenging and identifying evidence against these thoughts. Pt went on to reflect on several areas of progress over the past few months. This included an improved sense of self-compassion and self-advocacy. Described taking pride in her ability to now establish and maintain her boundaries while working on her relationship with herself. Pt has made much progress in her ability to challenge thoughts that she is ?broken? or ?unlovable?. Additional progress reported in better ability to apply dialectical thinking skills and have more intentionality behind who she spends her time with. Describe progress with reduction of reassurance seeking and over apologizing, which pt believes has aided in improving her self-confidence as well. Pt responded well to reviewing skills and thought challenge techniques she can use to aid with ongoing maintenance as well as prevent decompensation. Risks/Concerns:: None noted as of this date 08/22/24 Progress Toward Goals/Plan:: Pt continues to make progress towards tx goals AEB self-report of improved mood and functioning, as well as reduction in DSM-5 scores since admission. Pt also reports improvement in self-confidence, boundaries, self-compassion, and regulation of anxiety and depressive symptoms. Pt is more engaged with healthy supports, reports reduced self-deprecation, improved sleep, and better sense of self-confidence. Pt is connected with [facility] for outpatient counseling services and Dr. Vargas of ongoing medication management and will d/c from [facility] tx on this date. Time Stopped:: 09:00
--- NOTE | 2024-08-22 10:21 | BH.MDN ---
Multi-Disciplinary Note Note 45-min Individual: Time Started:: 08:19 Date: 08/22/24 Purpose of session/treatment goals addressed:: To review treatment progress and discuss strategies for continued maintenance. Another goal was to discuss discharge and aftercare. Eye Contact:: Good Motor Activity:: Appropriate Appearance:: Casual Speech:: Appropriate Mood:: Euthymic and Anxious Affect:: Congruent Thoughts:: Linear, Logical and No evidence of hallucinations/delusions noted Staff Interventions:: thought challenging, CBT techniques, discharge planning and strengths perspective Client Response:: Pt responded well to session, open to meeting with therapist. Pt reports she is overall doing well; however, today is feeling more anxious. Attributes this increase in anxiety to it being her last day, and fears that she will not be able to maintain the progress she has made when she no longer has the support of [facility] tx. Did well to work with therapist on challenging and identifying evidence against these thoughts. Pt went on to reflect on several areas of progress over the past few months. This included an improved sense of self-compassion and self-advocacy. Described taking pride in her ability to now establish and maintain her boundaries while working on her relationship with herself. Pt has made much progress in her ability to challenge thoughts that she is ?broken? or ?unlovable?. Additional progress reported in better ability to apply dialectical thinking skills and have more intentionality behind who she spends her time with. Describe progress with reduction of reassurance seeking and over apologizing, which pt believes has aided in improving her self-confidence as well. Pt responded well to reviewing skills and thought challenge techniques she can use to aid with ongoing maintenance as well as prevent decompensation. Risks/Concerns:: None noted as of this date 08/22/24 Progress Toward Goals/Plan:: Pt continues to make progress towards tx goals AEB self-report of improved mood and functioning, as well as reduction in DSM-5 scores since admission. Pt also reports improvement in self-confidence, boundaries, self-compassion, and regulation of anxiety and depressive symptoms. Pt is more engaged with healthy supports, reports reduced self-deprecation, improved sleep, and better sense of self-confidence. Pt is connected with [facility] for outpatient counseling services and Dr. Vargas of ongoing medication management and will d/c from [facility] tx on this date. Time Stopped:: 09:00
--- NOTE | 2024-08-22 10:38 | BH.DS_ITS ---
Discharge Summary Demographics Date of Admission:: 06/13/24 Discharge Date: 08/22/24 Presenting Problems at Admission:: Pt was referred to [facility] by her outpatient therapist at [facility] ([facility]i) due to worsening depression and suicidal thoughts. According to pt she wrote a suicide note 2 weeks ago. She disclosed this to her therapist and after safety-planning agreed to return to [facility] level of care. Long- standing fleeting suicidal thoughts and previous attempts. Hx of self-injurious behaviors with most recent yesterday (cut self with razor in [facility] parking lot). Discharge Diagnoses:: 1. Bipolar 2 disorder 2. Borderline personality disorder 3. Generalized anxiety disorder 4. PTSD 5. Primary support issues Reason for Discharge:: Symptoms stabilized, completed treatment plan goals, no longer meets criteria for [facility] level of care. Treatment Progress During Treatment & Response: Progress noted. Consistent and engaged in treatment. Completed treatment plan goals and objectives which included identifying triggers to distress, Identify warning signs, and internal/external coping skills. Pt also worked to identify and begin using realistic affirmations and challenging negative self-talk. During IOP she also was able to increase her knowledge and strategies to better manager regional negative automatic thoughts, cognitive distortions, and emotion dysregulation. Increased confidence in her ability to set boundaries, advocate for herself, and initiate crucial conversations with her former partner, as well as with her mother. Pt has overall expressed reduction in sx and this is reflected in DSM-5 scores as well. Outcome scores show a 16% decrease in overall symptoms since admission. Pt had a 29% decrease in the anxiety domain, and a 29% decrease in the depression domain. Issues Still to be Addressed:: Would benefit from consistent counseling to address ongoing depressive symptoms, urges to self-sabotage/self-harm, and improve communication, boundary setting, and distress tolerance. Discharge Recommendations/Instructions:: Recommended to follow-up with outpatient counselor and psychiatrist Pt has regular appointments with Dr. Vargas at [facility] for medication management, last appointment was 08/15/24 Pt has weekly counseling with R[facility]i at [facility] for ongoing sx management Will begin IOP aftercare on 08/29/24 Discharge Handout
--- NOTE | 2024-08-22 10:38 | BH.DS_ITS ---
Discharge Summary Demographics Date of Admission:: 06/13/24 Discharge Date: 08/22/24 Presenting Problems at Admission:: Pt was referred to [facility] by her outpatient therapist at [facility] ([facility]) due to worsening depression and suicidal thoughts. According to pt she wrote a suicide note 2 weeks ago. She disclosed this to her therapist and after safety-planning agreed to return to [facility] level of care. Long- standing fleeting suicidal thoughts and previous attempts. Hx of self-injurious behaviors with most recent yesterday (cut self with razor in [facility] parking lot). Discharge Diagnoses:: 1. Bipolar 2 disorder 2. Borderline personality disorder 3. Generalized anxiety disorder 4. PTSD 5. Primary support issues Reason for Discharge:: Symptoms stabilized, completed treatment plan goals, no longer meets criteria for [facility] level of care. Treatment Progress During Treatment & Response: Progress noted. Consistent and engaged in treatment. Completed treatment plan goals and objectives which included identifying triggers to distress, Identify warning signs, and internal/external coping skills. Pt also worked to identify and begin using realistic affirmations and challenging negative self-talk. 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 Increased confidence in her ability to set boundaries, advocate for herself, and initiate crucial conversations with her former partner, as well as with her mother. Pt has overall expressed reduction in sx and this is reflected in DSM-5 scores as well. Outcome scores show a 16% decrease in overall symptoms since admission. Pt had a 29% decrease in the anxiety domain, and a 29% decrease in the depression domain. Issues Still to be Addressed:: Would benefit from consistent counseling to address ongoing depressive symptoms, urges to self-sabotage/self-harm, and improve communication, boundary setting, and distress tolerance. Discharge Recommendations/Instructions:: Recommended to follow-up with outpatient counselor and psychiatrist Pt has regular appointments with Dr. Vargas at [facility] for medication management, last appointment was 08/15/24 Pt has weekly counseling with Raffi at [facility] for ongoing sx management Will begin IOP aftercare on 08/29/24 Discharge Handout
--- NOTE | 2024-08-22 11:15 | BH.SGPN.GN ---
Behaviors/Verbalizations/Mental Status: []Pt alert and oriented, appropriate grooming/appearance. Eye contact good. Motor activity appropriate. Speech within normal limits. Affect congruent, mood euthymic and anxious. Thoughts linear, logical, no signs of hallucinations or delusions. Client Response/Progress/Benefit: []Pt was an active participant in group discussions. Attentive during psychoeducation. In small group pt along with peers developed an active plan for their crisis warning signs. Pt identified three crisis warning signs as well as an action plan for each. One crisis warning sign was urges to self-harm. Pt identified strategies to help with this such as: journal, music, ride the wave, distraction, and art. Benefited from increased awareness of crisis warning signs and by developing crisis intervention strategies. Will d/c from IOP and continue in outpatient tx to maintain mood stability, promote use of healthy coping, and prevent decompensation. Narrative Note: []
== END 2024-08-22 12:22 | disposition home or self-care (01) ==
LOC: BHIOP 07:33
PROVIDERS: PCP Student in an Organized Health Care Education/Training Program; Referring Provider Psychiatry & Neurology Psychiatry; Visit Provider Psychiatry & Neurology Psychiatry
DX: F31.81 Bipolar II disorder (principal); F60.3 Borderline personality disorder; F41.1 Generalized anxiety disorder; F43.10 Post-traumatic stress disorder, unspecified
CPT/HCPCS: H2012; H2020; S9480; 90834

== ENCOUNTER 2024-08-05 08:30 | Outpatient (RCR) | payer MEDICAID, SELFPAY ==
--- NOTE | 2024-07-08 10:25 | HP.PTEVAL_ITS ---
Patient's Visit Information Visit Information Visit Information: LEIDY WILCOX is a 28 year old F referred to Physical Therapy by Dr. Evelio Hernandez DO with a diagnosis of migraines and Neck pain. Date of Evaluation: 07/08/24 Physical Therapist: OUSMANE Arndt Visit Plan Frequency: 2x /Week Duration: 2 Months Plan: Pt is approved for 8 visits 2X/ week to work on MT to c-spine paraspinals, sub occip release and light c- spine distraction. Add postural and scapular strength and stretching of levator, traps, lats with HEP HEP: mid trap stretch with hand under chair, corner stretch, mid rows with green band Subjective Subjective: Pt has been having neck pain and migraines consistently for 3 months now. She has it all the time and it ranges in severity. She gets the migraines every couple of days and they last a few hours. She gets vestibular migraines and hard to function. They hit usually near the end of the day and has been told she holds her stress in her neck and shoulders. She does walking. She started some different kinds of stretching and that helped how heavy her neck was feeling and the stiffness of it. She reports that her pain is in the back of her byrd in the middle of her neck on the L side. She has tried massage and it helped for a very short amount of time. She has N&T if she has done a lot of lifting and it lasts a short amount of time. They did some x-rays of her neck (has a straighter of c-spine column). The neck pain will keep her up at night. She has gotten a special pillow that does help. Pain Neck pain: Pain Intensity (Out of 10): 2 CHOI: Pain Intensity (Out of 10): 0 Objective Objective: R handed: R 71# and L 55# UE AROM: Full WFL shoulder AROM but tight at end range flex, ER UE MMT: R shoulder flex 13.7 and 9.2 R shoulder ABD 12.5 and L 10.5 R shoulder ER 13.4 and L 12 R shoulder IR 9.5 and L 9.3 C-spine AROM: flex 100%. Ext 75% increase pain, SB B 75% (increase pain), Rot B 80% and pain at end range Posture: slightly rounded shoulders Palpation: tender along the upper occiput and upper C-spine paraspinals Light distraction felt good to the patient and tenderness present with suboccip release Balance/Special Test Scores Oswestry Neck Score: 15 Goals Goal 1:: I HEP Goal Time Frame: 6-8 Weeks Goal 2:: Decrease frequency and severity of migraines Goal Time Frame: 6-8 Weeks Goal 3:: Increase pain free c-spine AROM (at the time of the eval: C-spine AROM: flex 100%. Ext 75% increase pain, SB B 75% (increase pain), Rot B 80% and pain at end range). Goal Time Frame: 6-8 Weeks Goal 4:: Be able to tolerated more upright posture Goal Time Frame: 6-8 Weeks Rehabilitation Potential Rehabilitation Potential: Good Anticipated Interventions Patient/Client Instruction: Educate patient on: Condition and Plan of Care For the Purpose of:: To decrease pain, To increase ROM, To improve muscle performance and motor function, To improve ability to perform ADL's, To increase tolerance to activity/condition/position, To improve health of tissue and To increase flexibility/ROM Therapeutic Exercise to Include: Strength training, Endurance training, Postural training, Flexibilty training, Neuromotor development, Passive ROM, Active ROM and Scapular Strength/Stabilization For the Purpose of:: To decrease pain, To increase ROM, To improve nutrient delivery to tissue, To improve muscle performance and motor function, To improve ability to perform ADL's, To increase tolerance to activity/condition/position, To decrease level of supervision to perform tasks, To improve health of tissue, To decrease soft tissue restriction and To increase flexibility/ROM Manual Therapy Techniques to Include: Mobilization, Passive ROM and Soft tissue mobilization For the Purpose of:: To decrease pain, To increase ROM, To improve nutrient delivery to tissue, To improve muscle performance and motor function, To improve ability to perform ADL's, To improve health of tissue, To decrease soft tissue restriction and To increase flexibility/ROM Thermo therapy (hot pack): Yes For the Purpose of:: To decrease pain, To decrease swelling/inflammation and To improve nutrient delivery to tissue Text: Thank you for the opportunity to evaluate your patient. For Medicare and Medicare HMO plans, please review the plan of care and approve it. It will need to be FAXED BACK to us at [phone] for Medicare purposes. For Medicare only, by signing this I certify the plan of care. Please let me know if there are questions or concerns regarding this plan of care. Physician Signature: Date:
--- NOTE | 2024-08-05 10:48 | HP.PTDCSUM ---
Discharge Summary D/C summary: It has been my pleasure to treat LEIDY WILCOX referred by Dr. Evelio Hernandez DO, with the diagnosis of migraines and Neck pain for a total of 8 visit(s). Discharge Date: 08/05/24 Please see the following information for a summary of their discharge status. Subjective Subjective: Pt reports some neck pain today. Def less CHOI Pain Neck pain: Pain Intensity (Out of 10): 4 CHOI: Pain Intensity (Out of 10): 0 Overall Improvement % Improvement: 50 Objective Objective/Function: Pt is still tight at the occiput and mid trap region. Discussed importance of maintaining good posture and recognizing when she is doing shoulder elevation. Issued her a blue band to continue with her postural exercises at home. She sees her Dr in 2 weeks. Goals Goal 1:: I HEP Goal Progress: Goal Met Goal 2:: Decrease frequency and severity of migraines Goal Progress: Goal Met Goal 3:: Increase pain free c-spine AROM (at the time of the eval: C-spine AROM: flex 100%. Ext 75% increase pain, SB B 75% (increase pain), Rot B 80% and pain at end range). Goal Progress: Progressing Goal 4:: Be able to tolerated more upright posture Goal Progress: Progressing Plan Plan: DC PT to HEP D/C Information Discharge Comments: DC PT to HEP d/c sentence: If there are questions or concerns regarding this patient's physical therapy, please feel free to call me at [phone]. Thank you for the referral of this patient. Sincerely, Georgette Chow, MPT Balance/Gait/Functional tests Balance/Special Test Scores Oswestry Neck Score: 11 Improvement % Improvement: 50
== END 2024-08-05 19:00 | disposition home or self-care (01) ==
LOC: PT 08:30
PROVIDERS: PCP Student in an Organized Health Care Education/Training Program; Referring Provider Student in an Organized Health Care Education/Training Program; Visit Provider Student in an Organized Health Care Education/Training Program
DX: M54.2 Cervicalgia (principal)
CPT/HCPCS: 97110; 97140; 97161

== ENCOUNTER → 2024-08-15 | Outpatient (CLI) | payer MEDICAID, SELFPAY ==
[2024-08-15 13:32] LABS: Absolute Lymphocyte Count 2.54 X10^3/uL (0.83-4.51); Absolute Neutrophil Count 4.2 X10^3/uL (2.0-7.7); Basophil# 0.03 X10^3/uL; Basophil% 0.4 % (0-1); Eosinophil# 0.08 X10^3/uL; Eosinophils% 1.1 % (0-5); Hematocrit 42.7 % (37-47); Hemoglobin 14.5 g/dL (12.0-15.0); Lymphocyte # 2.54 X10^3/ul (0.83-4.51); Lymphocyte % 34.3 % (19-41); Mean Corpuscular Hgb 32.2 pg (27.0-32.0); Mean Corpuscular Volume 94.7 fL (81-99); Mean Platelet Vol. 11.8 fl (6.2-12.0); Monocyte# 0.55 X10^3/uL; Monocyte% 7.4 % (0-10); NRBC Flagged by Analyzer 0 % (0-5); Neutrophil # 4.19 X10^3/uL (2.7-7.7); Neutrophil % 56.7 % (47-70); POSITIVE COUNT YES; Platelet Count 256 K/mm3 (150-450); RBC Distribution Width CV 11.9 % (11.6-14.6); RBC Distribution Width SD 40.9 fl (35.1-43.9); Red Blood Count 4.51 M/mm3 (4.2-5.4); White Blood Count 7.4 K/mm3 (4.4-11.0)
[2024-08-15 14:15] LABS: Hemoglobin A1c 5.3 % (<=5.6)
[2024-08-15 14:23] LABS: Cholesterol 190 mg/dL (<=200)
[2024-08-15 14:24] LABS: ALB/GLOB Ratio 1.5 RATIO (0.9-2.4); AST(SGOT) 27 U/L (<=31); Alanine Aminotransfer ALT/SGPT 13 U/L (<=34); Albumin, Serum 4.4 g/dL (3.5-5.0); Alkaline Phosphatase 122 U/L (35-104); Anion Gap 12 (5-15); BUN 13 mg/dL (4-19); BUN/Creat Ratio 15.5 RATIO (10-20); Calcium,Total 9.4 mg/dL (7.6-11.0); Carbon Dioxide 25.9 mmol/L (21.0-32.0); Chloride 101 mmol/L (98-108); Creatinine, Serum 0.81 mg/dL (0.70-1.20); EST Glomerular Filtration Rate 101 (>60); Glucose 74 mg/dL (70-99); Potassium 4.6 mmol/L (3.3-5.1); Protein, Total 7.3 g/dL (5.9-8.4); Sodium Level 139 mmol/L (133-145); Total Bilirubin 0.32 mg/dL (0.00-1.30)
[2024-08-15 14:57] LABS: Differential Indicated SCAN CRITERIA MET
[2024-08-15 23:45] LABS: Platelet Estimate ADEQUATE (ADEQ)
== END | disposition home or self-care (01) ==
LOC: LAB 12:25
PROVIDERS: PCP Student in an Organized Health Care Education/Training Program; Referring Provider Student in an Organized Health Care Education/Training Program; Visit Provider Student in an Organized Health Care Education/Training Program
DX: F31.81 Bipolar II disorder (principal); F43.10 Post-traumatic stress disorder, unspecified; G47.00 Insomnia, unspecified
CPT/HCPCS: 36415; 80053; 82465; 83036; 84443; 85025

== ENCOUNTER 2024-08-29 08:00 | Outpatient (RCR) | payer MEDICAID, SELFPAY ==
--- NOTE | 2024-08-29 14:00 | BH.COMM ---
Communication Note Communication with Client Communication Note: Patient completed IOP and presents today to start relapse prevention group which meets once weekly (1.5 hours) for 8 weeks. Case discussed with Dr. Yin with plan to admit with dx of F31.47
--- NOTE | 2024-08-29 15:43 | BH.MTP ---
Master Treatment Plan Patient Information Program Physician:: Dr. Vargas Primary Therapist:: Raina MENDOZA Psychiatric Diagnoses Psychiatric Diagnoses:: 1. Bipolar 2 disorder 2. Borderline personality disorder 3. Generalized anxiety disorder 4. PTSD Diagnosis Code(s):: F 31.81 Estimated LOS Estimated LOS (in weeks):: 8 Problem/Goal #1 Problem/Goal #1 Stated Goal:: client will maintain or see a reduction in symptoms AEB client score on the DSM 5 cross-cutting measure and improve client's daily functioning. Objectives Objective #1: Stated Objective: Client will continue to consistently apply healthy coping skills to maintain progress made in IOP tx. Interventions: Through group therapy, client will review warning signs and triggers as well as healthy coping skills learned in IOP tx to successfully maintain gains while transitioning into outpatient therapy. Discharge Criteria: Client will have accomplished this goal when client's score on the DSM-5 cross-cutting measure has maintained or reduced over a 8 week period. Target Date: 10/24/24 Review Date: 09/26/24 Status: open Objective #2: Stated Objective: Client will learn and utilize 2-3 maintenance strategies to prevent decompensation from original IOP DSM-5 scores. Interventions: Through group therapy, client will be provided with education on healthy maintenance behaviors, relapse prevention techniques, and healthy coping strategies. Discharge Criteria: Client will have accomplished this goal when can report using at least 2 maintenance skills to prevent decompensation compared to original IOP DSM-5 scores Target Date: 10/24/24 Review Date: 09/26/24 Status: open
== END 2024-08-31 23:59 ==
LOC: BHOG 08:00
PROVIDERS: PCP Student in an Organized Health Care Education/Training Program; Referring Provider Psychiatry & Neurology Psychiatry; Visit Provider Psychiatry & Neurology Psychiatry
DX: F31.81 Bipolar II disorder (principal); F60.3 Borderline personality disorder; F41.1 Generalized anxiety disorder; F43.10 Post-traumatic stress disorder, unspecified
CPT/HCPCS: 90853; 97140

== ENCOUNTER 2024-09-02 07:26 | Outpatient (RCR) | payer MEDICAID, SELFPAY ==
--- NOTE | 2024-08-29 15:35 | BH.SGPN.GN ---
Behaviors/Verbalizations/Mental Status: []Client alert and oriented, casually dressed and groomed. Eye contact good. Motor activity appropriate. Speech within normal limits. Affect congruent, mood euthymic and stressed. Thoughts linear, logical, no signs of hallucinations or delusions. Client Response/Progress/Benefit: []Pt responded well to session AEB sharing and listening attentively to others. Pt reports following up with therapy and pt reports she is taking her medications consistently. Pt stated using journaling, asking for help, deep breathing, self-care, PMR, and opposite action as primary coping skills used this past week. Pt participated in group discussion defining vulnerability, how and why we avoid it, and the benefits. Pt was an active participant and provided personal examples of being vulnerable and the positive things that came with this. Pt stated that pt would like to work on being vulnerable this week by reminding herself that she does not have to be perfect to be loved and worthy. Will continue aftercare treatment to reinforce healthy coping skills and promote gains. Narrative Note: []
--- NOTE | 2024-09-19 13:32 | BH.TPR ---
Treatment Plan Review Demographics Date of Admission:: 08/29/24 Date of Treatment Plan Review:: 09/19/24 Admitting Diagnoses:: 1. Bipolar 2 disorder 2. Borderline personality disorder 3. Generalized anxiety disorder 4. PTSD Current Diagnoses:: 1. Bipolar 2 disorder 2. Borderline personality disorder 3. Generalized anxiety disorder 4. PTSD Patient Status Patient's Response to Treatment:: Pt responding well to treatment AEB pt's consistent attendance, active engagement in group discussions, follow up with outpatient providers, and reporting use of skills outside treatment environment. Pt utilizes IOP aftercare to process current stressors, maintain boundaries with her ex while navigating co-parenting, practice giving herself credit for daily accomplishments, continue to work on challenging negative core beliefs and unrealistic expectations of self, and identify more adaptive coping strategies. Status of Current Problems and Symptoms: Ongoing stressors include maintaining progress made in IOP, stress with co-parenting while maintaining boundaries with ex, managing her emotions, and continuing to improve her ability to be a supportive caregiver while also taking care of herself. Pt self-reports she has moments of negative thinking, feeling “overwhelmed with life”, and depression, but it is still manageable. Progress Problem #1: Problem Name:: Pt will maintain or decrease symptoms from IOP admission data. Status of Goals:: Pt will maintain or decrease symptoms from IOP admission data. Status of Goals:: Obj 1 - complete with ongoing work encouraged- Pt has been able to maintain gains made in IOP as pt’s DSM-5 scores are 22% lower than they were at IOP admission. 29% decrease in depressive symptoms and 29% decrease in anxiety when compared to IOP admission scores. Obj 2 - complete with ongoing work encouraged. Pt has been consistently reporting self-care, thought challenging, boundary setting, gratitude, and using healthy coping skills. She struggles at times with recognizing and challenging negative core beliefs; however, pt is continuing to make consistent strides in better challenging and replacing these thoughts. Team Recommendations:: Recommended client continue IOP aftercare group to show maintenance of progress. Will continue to encourage client to attend regular outpatient counseling and psychiatry appointments as well.
--- NOTE | 2024-09-19 14:00 | BH.SGPN.GN ---
Behaviors/Verbalizations/Mental Status: []Pt alert and oriented, casually dressed and groomed. Eye contact good. Motor activity appropriate. Speech within normal limits. Affect congruent, mood euthymic. Thoughts linear, logical, no signs of hallucinations or delusions. Client Response/Progress/Benefit: [] Pt receptive of session, engaged throughout. Pt has been reporting utilizing healthy coping skills outside of aftercare. Pt saw her outpatient therapist this week and she has been taking her medications consistently. These skills included: radical acceptance, advocating for herself, exercising, and deep breathing. Receptive of discussion on distress tolerance and emotional urges. Pt contributed to the discussion of distress tolerance and how building distress tolerance can help improve mood stability and resilience. Pt wants to keep building distress tolerance by using delay, distract, decide. Pt seemed to benefit from support from peers and increasing understanding of distress tolerance. Will continue IOP aftercare to promote mood stability and reinforce healthy coping skills. Narrative Note: []
== END 2024-09-30 23:59 ==
LOC: BHOG 07:26
PROVIDERS: PCP Student in an Organized Health Care Education/Training Program; Referring Provider Psychiatry & Neurology Psychiatry; Visit Provider Psychiatry & Neurology Psychiatry
DX: F31.81 Bipolar II disorder (principal); F60.3 Borderline personality disorder; F41.1 Generalized anxiety disorder; F43.10 Post-traumatic stress disorder, unspecified
CPT/HCPCS: 90853

== ENCOUNTER 2024-10-01 07:13 | Outpatient (RCR) | payer MEDICAID, SELFPAY ==
--- NOTE | 2024-10-03 14:00 | BH.SGPN.GN ---
Behaviors/Verbalizations/Mental Status: []Pt alert and oriented, neatly dressed and groomed. Eye contact good. Motor activity appropriate. Speech within normal limits. Affect congruent, mood euthymic and anxious. Thoughts linear, logical, no signs of hallucinations or delusions. Client Response/Progress/Benefit: [] Pt responded well to session, completed their self-reflection worksheet. Pt noted they have met with their therapist since last session and used coping skills like deep breathing, stretching, journaling, finding the soto, radical acceptance, affirmations, and opposite action. Pt also noted they completed last week?s homework and found it helpful. Pt engaged well during the discussion of the components of self-compassion. Pt connected with the benefits of self-compassion and participated in the activity of reframing a recent setback using self-compassion. Pt used self-compassion to combat negative self-talk and assisted peers in identifying examples of the three components of self-compassion.?Pt appeared to benefit from practicing self-compassion and connecting with peers. Will continue aftercare to promote mood stability and reinforce healthy coping skills.? Narrative Note: []
--- NOTE | 2024-10-17 13:41 | BH.DS ---
Discharge Summary Demographics Date of Admission:: 08/29/24 Discharge Date: 10/17/24 Presenting Problems at Admission:: At aftercare admission pt reporting significant improvement in daily functioning and decrease in anxiety and depression. Client could benefit from aftercare program to help with maintenance of skills and progress. Pt continues to report that the relationship with her daughter?s father (pt?s now ex) is a stressors, as well as navigating co-parenting, managing her son?s behavioral issues, and maintaining employment. Discharge Diagnoses:: 1. Bipolar 2 disorder 2. Borderline personality disorder 3. Generalized anxiety disorder 4. PTSD Reason for Discharge:: Pt has accomplished tx goals AEB ability to maintain mood stability and gains made in IOP. Pt's DSM-5 scores remain 22% lower than her IOP admission scores. Pt will transition to traditional outpatient counseling. Treatment Progress During Treatment & Response: Pt responded well and made progress in IOP aftercare as evidenced by pt's participation in group discussions and self-report of consistently applying coping skills. Pt's overall DSM-5 scores decreased by 22% from IOP admission. Pt?s depression decreased by 29% since original IOP admission and pt's scores for anxiety decreased by 29% compared to original IOP scores. Issues Still to be Addressed:: Client could benefit from continued reinforcement of healthy coping skills, reinforcement of maintenance plan, and continued work on boundary setting. Discharge Recommendations/Instructions:: Client is established with an outpatient counselor at [facility] and occupational psychologist, Disha Peña, from [facility]. Discharge Handout
--- NOTE | 2024-10-17 14:00 | BH.SGPN.GN ---
Behaviors/Verbalizations/Mental Status: []Pt alert and oriented, neatly dressed and groomed. Eye contact good. Motor activity appropriate. Speech within normal limits. Affect congruent, mood euthymic and anxious. Thoughts linear, logical, no signs of hallucinations or delusions. Client Response/Progress/Benefit: [] Pt took notes and contributed to group discussions. Pt reports she has been taking medications consistently and pt has been seeing her therapist. Pt identified coping skills she has been using which included: reframing, setting boundaries, affirmations, radical acceptance, exercise, deep breathing, and giving herself credit. Pt engaged in discussion on habits and how they are formed. Pt gave examples of how to build healthy habits and reported benefitting from habit stacking. Pt shared she wants to work on building the habit of making self-care a priority on days I have therapy each week. Pt appeared to benefit from learning about building healthy habits and setting a habit goal. Will discharge from [facility] aftercare as pt has reached the 8 weeks of the program and reports benefiting and maintaining progress. ? Narrative Note: []
== END 2024-10-18 06:55 | disposition home or self-care (01) ==
LOC: BHOG 07:13
PROVIDERS: PCP Student in an Organized Health Care Education/Training Program; Referring Provider Psychiatry & Neurology Psychiatry; Visit Provider Psychiatry & Neurology Psychiatry
DX: F31.81 Bipolar II disorder (principal); F60.3 Borderline personality disorder; F41.1 Generalized anxiety disorder; F43.10 Post-traumatic stress disorder, unspecified; Z79.899 Other long term (current) drug therapy
CPT/HCPCS: 90853

== ENCOUNTER 2025-01-20 08:30 | Outpatient (RCR) | payer MEDICAID, SELFPAY ==
--- NOTE | 2024-08-27 12:56 | HP.PTEVAL ---
Patient's Visit Information Visit Information Visit Information: LEIDY WILCOX is a 28 year old F referred to Physical Therapy by Dr. Evelio Hernandez DO with a diagnosis of Neck pain. Date of Evaluation: 08/27/24 Physical Therapist: Jamie Colunga DPT Visit Plan Frequency: 2x /Week Duration: 4 Weeks Plan: 1) suboccipital release, IASTIM to R UT, R levator, R mid trap 2) postural strengthening including: deep neck flexors, cervical extensors, mid trap and thoracic musculature. Subjective Subjective: Pt. is here today for her initial evaluation with diagnosis of neck pain. Pt. reports having increased neck pain for a few months now. Pt. does have pain at night. Increases pain: lifting, sleeping, carrying. Decreases pain: ice and heat do help a bit. Pt. did have xrays: showing reduced cervical curvature. Pt. reports having migraines daily. No marked trigger, but feels like she is always tight in her neck. She does report having some tingling in her R had at times, but not all the time. No marked weakness noted. Pt. is hopeful to reduce symptoms in order to get back to all work and recreational activities without limitations. Pain neck: Pain Intensity (Out of 10): 5 Pain Intensity Range: 2 and 6 Objective Objective: POSTURE: Pt. has a general flexed posture with a forward head positioning. Pt. is able to self correct. PALPATION: Pt. has increased tenderness throughout cervical spine worse on R side. Pt. has marked symptoms at sub occipitals, R levator scap and throughout R UT. NEURO: normal. ROM: B shoulders: normal without issues. CERVICAL SPINE: flexion nil loss NE, ext min/mod loss icnrease NW, rotation nil loss bilat mild increase NW, SB nil loss bilat mild increase NW, MMT: Pt. has normal strength throughout B shoulders. Pt. has marked postural weakness with B mid trap, B cervical extensors. Special Tests C/S Radiculapathy - Left Spurlings: Negative C/S Radiculapathy - Right Spurlings: Negative C/S Radiculapathy - Left Cervical distraction: Negative C/S Radiculapathy - Right Cervical distraction: Negative C/S Radiculapathy - Left Relief test: Negative C/S Radiculapathy - Right Relief test: Negative C/S Radiculapathy - Valsalva: Negative Balance/Special Test Scores Oswestry Neck Score: 15 Goals Goal 1:: LTG: Pt. to be I with HEP. Goal Time Frame: 4-6 Weeks Goal 2:: STG: pt. to sleep throughout the night without increase in symptoms. Goal Time Frame: 2-4 Weeks Goal 3:: LTG: pt. to report migraines reduced to x1-2 per week. Goal Time Frame: 4-6 Weeks Goal 4:: LTG: Pt. to have improved strength of mid trap, cervical extensors, and thoracic musculature. Goal Time Frame: 4-6 Weeks Rehabilitation Potential Physical Therapy Diagnosis: Pt. has signs and symptoms consistent with neck pain. Pt. has increased muscle tension and a lack of postural strength. Pt. would benefit from PT to address the above limitations. Rehabilitation Potential: Excellent Anticipated Interventions Patient/Client Instruction: Educate patient on: Condition, Plan of Care, Risk Factors and Benefits of Fitness Program For the Purpose of:: To improve decision making, To facilitate caregiver knowledge, To improve self management, To prevent re-injury, To improve ability to perform tasks related to life management and To improve tolerance to ADL's Therapeutic Exercise to Include: Strength training, Power training, Endurance training, Passive ROM, Active ROM, Venancio Exercises and Scapular Strength/Stabilization For the Purpose of:: To decrease pain, To increase oxygenation perfusion, To improve muscle performance and motor function, To improve ability to perform ADL's, To improve health of tissue, To decrease soft tissue restriction and To increase flexibility/ROM Manual Therapy Techniques to Include: Mobilization, Passive ROM and Soft tissue mobilization Comment: IASTIM For the Purpose of:: To decrease pain, To increase ROM, To improve nutrient delivery to tissue, To increase oxygenation perfusion, To improve muscle performance and motor function, To improve performance and independence with ADL's, To decrease level of supervision to perform tasks, To improve ability of physical actions for home/community/work/leisure, To improve health of tissue and To decrease soft tissue restriction Text: Thank you for the opportunity to evaluate your patient. For Medicare and Medicare HMO plans, please review the plan of care and approve it. It will need to be FAXED BACK to us at [phone] for Medicare purposes. For Medicare only, by signing this I certify the plan of care. Please let me know if there are questions or concerns regarding this plan of care. Physician Signature: Date:
--- NOTE | 2025-01-07 09:24 | HP.PTREVAL ---
Re-Evaluation Intro: Dr. Evelio Hernandez, DO, It has been my pleasure to treat MURIEL WILCOX over the last 16 visits for Neck pain. Please see the progress note below for an update on the physical therapy plan of care! Subjective Subjective: Pt. reports that her migraines, but shoulder and neck pain is more constant. Pt. reports having Objective Objective/Function: Pt. reports waking up a lot at night still 4-5 times per night due to neck and head pain. ROM: cervical spine: ext mod loss increase NW suboccipitals on L side, flexion min/nil loss similar symptoms, R rotation nil loss mild increase NW, L rotation nil loss slight increase in symptoms B shoulder: pt has full motion, except flexion and functional ER both with min loss tightness noted. MMT: 5/5 throughout BUEs. Muriel does have some weakness in mid trap 4/5, lumbar extensors 4/5, and cervical extensors 4/5. Pt. reports getting migraines x5 per week, its is not waking her up at night as much. She does have some relief with manual traction. I would like to add in mechanical traction coupled with further core/postural strengthening. Attempt to strengthen mid trap, lumbar extensors and core strenghthening. Plan Plan Plan: I would like to add in mechanical traction coupled with further core/postural strengthening. Attempt to strengthen mid trap, lumbar extensors and core strengthening. Start cervical traction at 30 sec hold 10sec off, with 12-15# pull. for 20 min. progress strengthening as tolerated. Balance/Gait/Functional tests Balance/Special Test Scores Oswestry Neck Score: 18 Goals Goals Goal 1:: LTG: Pt. to be I with HEP. Goal Time Frame: 4-6 Weeks Goal Progress: Progressing Goal 2:: STG: pt. to sleep throughout the night without increase in symptoms. Goal Time Frame: 2-4 Weeks Goal Progress: Progressing Goal 3:: LTG: pt. to report migraines reduced to x1-2 per week. Goal Time Frame: 4-6 Weeks Goal Progress: Progressing Goal 4:: LTG: Pt. to have improved strength of mid trap, cervical extensors, and thoracic musculature. Goal Time Frame: 4-6 Weeks Goal Progress: Goal Met Anticipated Interventions Anticipated Interventions Patient/Client Instruction: Educate patient on: Condition, Plan of Care, Risk Factors and Benefits of Fitness Program For the Purpose of:: To improve decision making, To facilitate caregiver knowledge, To improve self management, To prevent re-injury, To improve ability to perform tasks related to life management and To improve tolerance to ADL's Therapeutic Exercise to Include: Strength training, Power training, Endurance training, Passive ROM, Active ROM, Venancio Exercises and Scapular Strength/Stabilization For the Purpose of:: To decrease pain, To increase oxygenation perfusion, To improve muscle performance and motor function, To improve ability to perform ADL's, To improve health of tissue, To decrease soft tissue restriction and To increase flexibility/ROM Manual Therapy Techniques to Include: Mobilization, Passive ROM and Soft tissue mobilization Comment: IASTIM For the Purpose of:: To decrease pain, To increase ROM, To improve nutrient delivery to tissue, To increase oxygenation perfusion, To improve muscle performance and motor function, To improve performance and independence with ADL's, To decrease level of supervision to perform tasks, To improve ability of physical actions for home/community/work/leisure, To improve health of tissue and To decrease soft tissue restriction Re-Evaluation Ending Re-evaluation ending: Please do not hesitate to contact me at [phone] by phone or if you have questions or concerns regarding this new plan of care! Sincerely, Jamie Colunga DPT
--- NOTE | 2025-01-20 09:12 | HP.PTDCSUM ---
Discharge Summary D/C summary: It has been my pleasure to treat LEIDY WILCOX referred by Dr. Evelio Hernandez DO, with the diagnosis of Neck pain for a total of 20 visit(s). Discharge Date: Please see the following information for a summary of their discharge status. Subjective Subjective: Pt. reports she is to have an MRI in the next couple of weeks. She did report the traction did help her migraines, but not much relief to neck and UT region. Pt. reports no N/T currently. Pain neck: Pain Intensity (Out of 10): 5 CHOI: Pain Intensity (Out of 10): 0 Overall Improvement % Improvement: 25 Objective Objective/Function: ROM: CERVICAL SPINE: min loss in all directions with increase in neck pain. No distal symptoms. neuro: normal throughout; MMT: 5/5 throughout. Pt. reports having some relief with traction for her cervical spine, but not much change in her neck. She has good UE strength, no myotomal weakness, normal sensation as well. At this point in time I would recommend DC from PT back to have MRI to determine best course of action Goals Goal 1:: LTG: Pt. to be I with HEP. Goal Progress: Goal Met Goal 2:: STG: pt. to sleep throughout the night without increase in symptoms. Goal Progress: Progressing Goal 3:: LTG: pt. to report migraines reduced to x1-2 per week. Goal Progress: Goal Met Goal 4:: LTG: Pt. to have improved strength of mid trap, cervical extensors, and thoracic musculature. Goal Progress: Goal Met Plan Plan: DC from PT at this point in time. D/C Information d/c sentence: If there are questions or concerns regarding this patient's physical therapy, please feel free to call me at [phone]. Thank you for the referral of this patient. Sincerely, Jamie Krishnamurthy Sipos, DPT Balance/Gait/Functional tests Balance/Special Test Scores Oswestry Neck Score: 14 Improvement % Improvement: 25
== END 2025-01-20 19:00 | disposition home or self-care (01) ==
LOC: PT 08:30
PROVIDERS: PCP Student in an Organized Health Care Education/Training Program; Referring Provider Student in an Organized Health Care Education/Training Program; Visit Provider Student in an Organized Health Care Education/Training Program
DX: M54.2 Cervicalgia (principal)
CPT/HCPCS: 97012; 97110; 97140; 97161; 97530